=== PATIENT | female | born 1975 | race Caucasian/White ===

== ENCOUNTER → 2016-05-10 | Outpatient (CLI) | payer OTHER ==
--- NOTE | 2016-05-10 21:56 | WWHP ---
DATE OF SERVICE: 05/10/2016 CHIEF COMPLAINT: Patient is here for her routine gynecologic exam and mammogram. HPI: This is a 40-year-old, G20, P4-0-16-4 with an LMP of 05/2016. The patient is currently not using anything to prevent . She believes her may not be able to bear children because of trauma to his genital area in the past. She states her periods are slightly irregular about every 28 to 38 days. Her last pelvic exam was about 6 years ago. PAST MEDICAL HISTORY: Asthma, COPD, polycystic ovarian syndrome and premenstrual dysphoric disorder, bicornuate uterus and posttraumatic stress disorder, seizure disorder which is currently not requiring medications, anxiety and depression. She denies any other psychiatric problems and denies schizophrenia. MEDICATIONS: 1. Lorazepam 1 mg b.i.d. 2. Albuterol 2 puffs b.i.d. 3. Multivitamin daily. 4. Vitamins C and D daily. ALLERGIES TO LATEX. No known drug allergies. PAST SURGICAL HISTORY: 2 sections, oral surgery, 3 D&Cs, appendectomy. Past OB history: 2 vaginal deliveries followed by 2 sections. One was done for breech and second one was because of placenta previa and placenta accreta. She has had 16 spontaneous abortions in the past. 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 She was also told she had HPV. She denies history of genital herpes. She has had polycystic ovarian syndrome in the past. She was told she had some type of pelvic infection when she had an IUD in the past. SOCIAL HISTORY: She quit smoking in 2000 and she also quit drinking alcohol in 2000. She was a heavy drinker prior to that time. She tried marijuana twice in the past. Other than that has not used any drugs. She has been since 2010. 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 FAMILY HISTORY: Grandmother and grandfather had lung cancer. Paternal grandfather had leukemia. Father had colon cancer. Maternal uncle had colon cancer. Both parents have hypertension. Father has had coronary artery disease. Mother had uterine fibroids. She had grandparents who had diabetes. REVIEW OF SYSTEMS: She has lost about 29 pounds over the last year. RESPIRATORY: She is getting over a cold. Cardiac: She has had occasional palpitations. GI: She denies any GI problems. PHYSICAL EXAM: Blood pressure 102/71. Height 5 feet 10 inches, weight 191 pounds. Temperature 98.1, pulse 79. This a well-developed, well-nourished white female who is alert and oriented x3 in no acute distress. HEENT is within normal limits. NECK: Supple without mass or thyromegaly. CHEST AND LUNGS: Clear to auscultation. HEART: Regular rate and rhythm. Breasts are without mass or discharge. There is mild right axillary tenderness but there is no axillary adenopathy. BACK: Negative for CVA tenderness. ABDOMEN: Soft, nontender, without palpable masses. PELVIC EXAM: Normal external genitalia. Cervix and vagina reveal a small amount of old menstrual blood in the back of vagina. There is no unusual discharge. There is no cervical motion tenderness. The uterus is midposition, nongravid size and nontender. There are no palpable adnexal masses. There is mild right adnexal tenderness which she states she has had for many years, which causes tenderness when she is examined on that side. She states she had many ultrasounds for this and these typically show some ovarian cysts per the patient. Rectovaginal exam is negative for mass or tenderness. EXTREMITIES: Nontender. IMPRESSION: 1. A 40-year-old female with history of polycystic ovarian syndrome, and mild right adnexal tenderness without palpable masses. 2. She is currently not doing anything to prevent at this time. 3. History of bicornuate uterus and history of placenta previa and placenta accreta in the past by the patient's history. 4. Multiple medical problems. PLAN: 1. Pap smear was performed. 2. Self-breast examination was discussed. 3. Mammogram will be done today. 4. We had a long discussion about how she would be very high risk if she did get again. She states she had wanted one more . We have also discussed her advanced maternal age and her increased risk for Down syndrome. 5. We have discussed control options, including sterilization, hormonal methods, IUD and barrier methods. As she had pelvic infection with an IUD I do not feel that this would be a good choice for her especially if she has a bicornuate uterus. She states she will consider options. I have recommended that she at least use condoms if she is sexually active. 6. If she is not preventing I have recommended she take a multivitamin. We have also discussed risks of the Zika virus. I stressed importance of not traveling to countries higher risk for mosquitoes with the Zika virus as well as her avoid these areas as well. 7. She will return in one year. DALE
--- NOTE | 2016-05-12 09:51 | MM ---
Reason for exam: screening (asymptomatic). History: Taking hormonal contraceptives for 2 years beginning at age 30. Physical Findings: A clinical breast exam by your physician is recommended on an annual basis and results should be correlated with mammographic findings. MG 3D Screening Mammo W/Cad Bilateral CC and MLO view(s) were taken. The breast tissue is heterogeneously dense. This may lower the sensitivity of mammography. There is no discrete abnormality. No significant changes when compared with prior studies. ASSESSMENT: Negative, BI-RAD 1 RECOMMENDATION: Routine screening mammogram of both breasts in 1 year.
== END | disposition home or self-care (01) ==
LOC: WWCWWP 12:27
PROVIDERS: ATTEND Obstetrics & Gynecology
DX: Z12.31 Encounter for screening mammogram for malignant neoplasm of breast (principal)
CPT/HCPCS: 77063; G0202

== ENCOUNTER → 2016-05-10 | Outpatient (CLI) | payer OTHER | END | disposition home or self-care (01) | LOC: RADMAMWWP 13:45 | PROVIDERS: ATTEND Obstetrics & Gynecology | DX: Z53.9 Procedure and treatment not carried out, unspecified reason (principal) ==

== ENCOUNTER → 2016-06-28 | Outpatient (CLI) | payer OTHER ==
--- NOTE | 2016-06-28 09:24 | US ---
EXAMINATION TYPE: US transvaginal DATE OF EXAM: 06/28/2016 9:01 AM COMPARISON: 04/10/2013 CLINICAL HISTORY: R10.2 Pelvic Pain. Right pelvic pain, h/o cysts TECHNIQUE: TV Date of LMP: 05/28/2016 EXAM MEASUREMENTS: Uterus: 7.7 x 5.4 x 3.8 cm Endometrial Stripe: 0.7 cm Right Ovary: 2.2 x 1.7 x 1.4 cm Left Ovary: 3.9 x 1.7 x 2.9 cm 1. Uterus: Anteverted wnl 2. Endometrium: wnl 3. Right Ovary: wnl 4. Left Ovary: 2.1cm dominate follicle versus small cyst 5. Bilateral Adnexa: wnl 6. Posterior cul-de-sac: wnl Impression: 1. There is a 2.1 cm simple left ovarian cyst.
== END | disposition home or self-care (01) ==
LOC: RADUSWWP 08:24
PROVIDERS: ATTEND Obstetrics & Gynecology
DX: N83.202 Unspecified ovarian cyst, left side (principal)
CPT/HCPCS: 76830

== ENCOUNTER → 2016-09-07 | Outpatient (CLI) | payer OTHER ==
[2016-09-07 12:14] LABS: Appearance,Urine Clear (Clear); Bilirubin,Urine Negative (Negative); Glucose,Urine (UA) Negative (Negative); Ketones,Urine Negative (Negative); Leukocyte Esterase,Urine Trace (Negative); Mucus,Urine Rare /hpf; Nitrite,Urine Negative (Negative); Particle Count 1535; Protein,Urine Negative (Negative); RBC,Urine <1 /hpf (0-5); Specific Gravity,Urine 1.013 (1.001-1.035); Squamous Epithelial Cell,Urine <1 /hpf (0-4); UA Billing (MACRO vs. MICRO) MICRO; Urobilinogen,Urine <2.0 mg/dL (<2.0); WBC,Urine <1 /hpf (0-5)
--- NOTE | 2016-09-07 22:08 | WWPN ---
DATE OF ADMISSION: 09/07/2016 CHIEF COMPLAINT: Vaginal discharge x2 weeks. HPI: This is a 41-year-old [id number] for with a last normal menstrual period of 07/12/16. She has not been using anything for control, since she thought her was not able to bear children because of trauma to his genital area in the past. She states after her last normal menstrual period, she has had 2 very light bleeding episodes, one for two days on 07/25/2016, which was very light. She also had spotting for a couple of days on 08/08/2016. She states she is having some symptoms including breast tenderness. She is also complaining of right abdominal pain, which is greatest in the right lower quadrant. It seems to radiate from the right back area. She states she did have an ectopic in the past and she says that this could be a possibility. She has also been experiencing mucousy discharge. She states also resembles discharge of her pregnancies in the past. She has noticed a slight greenish-greenish tinge and a slight odor. The abdominal discomfort feels like someone is pushing her finger into her abdomen, and she describes it as a pressure-type discomfort. She did have an abnormal Pap smear 05/10/2016, which showed ASCUS and was positive high-risk HPV. We have had several attempts to refer her for colposcopy, but she was not able to make her appointments to see Dr. Vallejo and her office will no longer see the patient because of the no-show. The patient states she does have an appointment with a plant control operator in [place]. She believes the name of Dr. Maurice. She will call with the exact name and phone number. REVIEW OF SYSTEMS: She denies fever, but she has had occasional chills. She denies respiratory, cardiac, or GI problems. She states she has had normal bowel movements. PHYSICAL EXAM: Blood pressure 100/69. Height 5 feet 9 inches. Weight 197 pounds. Temperature 98.3, pulse 67. This is a well-developed, well-nourished white female who is alert and oriented x3 in no acute distress. BACK: Is negative for CVA tenderness. ABDOMEN: Soft with mild right lower and right upper quadrant tenderness without rebound tenderness. There are no palpable masses. The abdomen is nondistended. PELVIC EXAM: Normal external genitalia. Cervix and vagina reveal a small amount of slightly yellowish mucus without odor. The cervix appears multiparous, but no significant inflammation. There is no significant odor. There is no cervical motion tenderness. The uterus is midposition, nongravid size and nontender. There are no palpable adnexal masses or tenderness. Saline wet mount is negative for trichomonas or clue cells and TIFFANY wet mount is negative for hyphae. No significant white blood cells noted as well. IMPRESSION: 1. A 41-year-old female with slight vaginal discharge, without evidence of active vaginitis. 2. Right abdominal pain with mild tenderness. At this time, I doubt a gynecologic cause based on her nontender bimanual examination of the pelvis. 3. Abnormal recent menses with last normal menstrual period of 07/12/2016. 4. Differential diagnosis will include and if she is an ectopic should be considered. Urinary tract infection, ovarian cyst as well as nongynecologic causes for pain would also be considered. I also doubt PID based on her negative bimanual examination. PLAN: 1. GC and Chlamydia testing from the cervix has been obtained. 2. UA with C&S will be obtained. 3. The patient states urine test are not accurate in her situation and she is requesting blood test be done instead of a urine test so serum beta-hCG will be obtained. 4. If she is having increasing pain or problems, she can go into the emergency room for further evaluation. 5. If she is not she will follow up with Dr. Sharma regarding abdominal pain. 6. The patient will see a plant control operator in [place] for her abnormal Pap smear. A copy of her Pap smear and HPV testing were given to the patient. She was also instructed to call with the doctors name and phone number so we can send additional records. Total time spent with the patient 35 minutes.
== END | disposition home or self-care (01) ==
LOC: WWCWWP 10:27
PROVIDERS: ATTEND Obstetrics & Gynecology
DX: N91.1 Secondary amenorrhea (principal); R10.31 Right lower quadrant pain; N89.8 Other specified noninflammatory disorders of vagina
CPT/HCPCS: 36415; 81001; 84702; 87086; 87491; 87591

== ENCOUNTER → 2017-09-28 | Outpatient (CLI) | payer OTHER ==
--- NOTE | 2017-09-28 22:35 | US ---
EXAMINATION TYPE: US OB >= 14 wk fetus DATE OF EXAM: 09/28/2017 COMPARISON: None CLINICAL HISTORY: 42-year-old female O09.523 Advanced maternal age,3rd trimester; ; patient stat ed has had anatomy survey at physician's office TECHNIQUE: Transabdominal (TA) GESTATIONAL AGE / DATING Physician Established: (36 weeks/2 days) EDC: 10/24/2017 Dates by LMP: LMP unknown Dates by First Scan: No previous this is first scan Dates by Current Scan: (35 weeks/5 days +/- 2 weeks 3 days) EDC: 10/28/2017 Beta HCG (if available): NA SURVEY IUP: Single PLACENTA: Fundal PREVIA: No Previa STAN: 17.6 cm Normal CERVICAL LENGTH (transabdominal: norm > 3.0cm): 4.1 cm BIOMETRY PRESENTATION: Breech LIE: Transverse with head maternal Left BPD: 8.7 cm 34 weeks / 6 days HC: 31.9 cm 36 weeks / 0 days AC: 32.3 cm 36 weeks / 1 day FL: 7.0 cm 35 weeks / 5 days ESTIMATED WEIGHT IN GRAMS: 2797.0 grams ESTIMATED WEIGHT IN LBS/OZ: 6 lbs. 13 oz. WEIGHT PERCENTAGE BASED ON ESTABLISHED DATES: 41.6% HC/AC: 0.99 Normal FL/AC: 21.54 Normal HEART RATE: 144 bpm RHYTHM: Normal Rotating Equipment Specialist notes: Single, live IUP,35 weeks/5 days,EDC: 10/28/2017, HR 144bpm. IMPRESSION: Single live intrauterine with established gestational age of 36 weeks 2 days. Current ultra sound biometry is slightly smaller and concordant at 35 weeks 5 days (placing the child at the 42nd p ercentile for weight).
== END | disposition home or self-care (01) ==
LOC: RADUSWWP 15:38
PROVIDERS: ATTEND Obstetrics & Gynecology Gynecology
DX: O09.523 Supervision of elderly multigravida, third trimester (principal); O09.93 Supervision of high risk pregnancy, unspecified, third trimester; O09.43 Supervision of pregnancy with grand multiparity, third trimester; Z3A.36 36 weeks gestation of pregnancy
CPT/HCPCS: 76805

== ENCOUNTER → 2017-10-12 | Outpatient (CLI) | payer OTHER ==
--- NOTE | 2017-10-12 14:16 | US ---
EXAMINATION TYPE: US OB BPP wo non-stress DATE OF EXAM: 10/12/2017 COMPARISON: OB ultrasound September 28, 2017 CLINICAL HISTORY: O09.523 AMA,O09.93 HIGH RISK FOR INTRAPARTUM COMP. EXAM PERFORMED: Transabdominal (TA) BPP PARAMETERS: PRESENTATION: vertex LIE: Oblique?? HEART RATE: 126 bpm RHYTHM: Normal STAN: 16.5 DIAPHRAGM IMAGED: yes BPP SCORIN. Breathin (1 episode of breathing of 30 second duration in 30 minutes of scanning time) 2. Movement: 2 (at least 3 discrete body movements in 30 minutes) 3. Tone: 2 (1 episode of active flexion/extension of limb) 4. STAN: 2 (STNA index > 5cm) TOTAL SCORE: 8 / 8 Normal study
== END | disposition home or self-care (01) ==
LOC: RADUSWWP 13:19
PROVIDERS: ATTEND Obstetrics & Gynecology Gynecology
DX: O09.523 Supervision of elderly multigravida, third trimester (principal); O09.93 Supervision of high risk pregnancy, unspecified, third trimester; Z3A.00 Weeks of gestation of pregnancy not specified
CPT/HCPCS: 76819

== ENCOUNTER 2017-11-28 17:25 | Emergency (ER) | payer OTHER ==
[2017-11-28] MEDS ORDERED: SODIUM CHLORIDE 0.9% 1,000 ML IV ONE (17:53)
--- NOTE | 2017-11-28 17:57 | ED ---
General Adult HPI - General Source: patient, RN notes reviewed Mode of arrival: ambulatory Limitations: no limitations <Kieran Victoria - Last Filed: 11/28/17 20:48> <John Rodrigez - Last Filed: 11/28/17 21:47> - General Chief complaint: Headache Stated complaint: Headache/dizziness Time Seen by Provider: 11/28/17 17:30 - History of Present Illness Initial comments: This a 42-year-old female presents emergency Department by 4 weeks. Patient comes in today stating that since she delivered she has been having body aches and over the last 4 days she's had a temperature however today she has had no temperature. Patient states last few days she's been very lightheaded and almost passing out today she was sitting in a chair nursing her baby when her boyfriend came back in the room and he thought she was passed out but she woke up immediately upon him talking but she's not sure if she was unconscious or not. Patient states yesterday was last time she had a fever it was 100. Patient states she has a history of an aneurysm in the past. Patient also complains of a headache for 4 days as well. Patient denies any nausea vomiting or diarrhea. Patient denies any cough. Patient denies any palpitations. Patient denies shortness of breath or difficulty breathing. Patient denies any numbness or weakness. Patient also complains of dysuria no urinary frequency. (Kieran Victoria) - Related Data Home Medications Medication Instructions Recorded Confirmed Acetaminophen Tab [Tylenol Tab] 1,000 mg PO BID PRN 11/28/17 11/28/17 Albuterol Inhaler [Ventolin Hfa 2 puff INHALATION RT-Q6H PRN 11/28/17 11/28/17 Inhaler] Hydrocodone/Acetaminophen [[place] 1 tab PO DAILY PRN 11/28/17 11/28/17 7.5-325] Pedi Multivit No.25/Folic Acid 300 mcg PO DAILY 11/28/17 11/28/17 [[place] Multivit Chew Tab] Allergies Allergy/AdvReac Type Severity Reaction Status Date / Time acetaminophen [From Percocet] Allergy Anaphylaxis Verified 11/28/17 17:59 ciprofloxacin [From Cipro] Allergy Anaphylaxis Verified 11/28/17 17:59 coconut Allergy Anaphylaxis Verified 11/28/17 17:59 Fish Containing Products Allergy Anaphylaxis Verified 11/28/17 17:59 [Fish] fluticasone Allergy Anaphylaxis Verified 11/28/17 17:59 [From Flovent Diskus] Iodinated Contrast- Oral and Allergy Swelling Verified 11/28/17 17:59 IV Dye [Iodinated Contrast Media - IV Dye] iodine Allergy Swelling Verified 11/28/17 17:59 lamotrigine [From Lamictal] Allergy Anaphylaxis Verified 11/28/17 17:59 latex Allergy Rash/Hives Verified 11/28/17 17:59 naproxen Allergy Rash/Hives Verified 11/28/17 17:59 nitrofurantoin Allergy Rash/Hives Verified 11/28/17 17:59 [From Macrobid] oxcarbazepine Allergy Unknown Verified 11/28/17 17:59 [From Trileptal] oxycodone [From Percocet] Allergy Anaphylaxis Verified 11/28/17 17:59 Penicillins Allergy Anaphylaxis Verified 11/28/17 17:59 Quinolones Allergy Unknown Verified 11/28/17 17:59 shellfish derived [Shellfish] Allergy Swelling Verified 11/28/17 17:59 topiramate [From Topamax] Allergy Rash/Hives Verified 11/28/17 17:59 venom-honey bee Allergy Anaphylaxis Verified 11/28/17 17:59 [bee venom (honey bee)] venom-wasp [wasp venom] Allergy Anaphylaxis Verified 11/28/17 17:59 codeine AdvReac Vomiting Verified 11/28/17 17:59 diphenhydramine AdvReac Unknown Verified 11/28/17 17:59 [From Benadryl] divalproex sodium AdvReac Unknown Verified 11/28/17 17:59 [From Depakote] erythromycin base AdvReac Unknown Verified 11/28/17 17:59 medroxyprogesterone AdvReac Unknown Verified 11/28/17 17:59 [From Depo-Provera] paroxetine [From Paxil] AdvReac Unknown Verified 11/28/17 17:59 procaine [From Novocain] AdvReac Unknown Verified 11/28/17 17:59 Review of Systems ROS Other: All systems not noted in ROS Statement are negative. <Kieran Victoria - Last Filed: 11/28/17 20:48> ROS Other: All systems not noted in ROS Statement are negative. <John Rodrigez - Last Filed: 11/28/17 21:47> ROS Statement: Those systems with pertinent positive or pertinent negative responses have been documented in the HPI. Past Medical History Past Medical History: GERD/Reflux Additional Past Medical History / Comment(s): polycystic, ulcer, biliary colic History of Any Multi-Drug Resistant Organisms: None Reported Past Surgical History: Appendectomy, Section Additional Past Surgical History / Comment(s): d and c Past Psychological History: No Psychological Hx Reported Smoking Status: Former smoker Past Alcohol Use History: None Reported Past Drug Use History: None Reported <Kieran Victoria - Last Filed: 11/28/17 20:48> General Exam Limitations: no limitations <Kieran Victoria - Last Filed: 11/28/17 20:48> <John Rodrigez - Last Filed: 11/28/17 21:47> - General Exam Comments Initial Comments: GENERAL: Patient is well-developed and well-nourished. Patient is nontoxic and well- hydrated and is in no acute distress. Patient was breast-feeding her child when I entered the room and in no distress ENT: Neck is soft and supple. No significant lymphadenopathy is noted. Oropharynx is clear. Moist mucous membranes. Neck has full range of motion without eliciting any pain. EYES: The sclera were anicteric and conjunctiva were pink and moist. Extraocular movements were intact and pupils were equal round and reactive to light. Eyelids were unremarkable. PULMONARY: Unlabored respirations. Good breath sounds bilaterally. No audible rales rhonchi or wheezing was noted. CARDIOVASCULAR: There is a regular rate and rhythm without any murmurs gallops or rubs. ABDOMEN: Soft and nontender with normal bowel sounds. No palpable organomegaly was noted. There is no palpable pulsatile mass. SKIN: Skin is clear with no lesions or rashes and otherwise unremarkable. NEUROLOGIC: Patient is alert and oriented x3. Cranial nerves II through XII are grossly intact. Motor and sensory are also intact. Normal speech, volume and content. Symmetrical smile. MUSCULOSKELETAL: Normal extremities with adequate strength and full range of motion. No lower extremity swelling or edema. No calf tenderness. LYMPHATICS: No significant lymphadenopathy is noted PSYCHIATRIC: Normal psychiatric evaluation. (Kieran Victoria) Vital Signs 11/28/17 11/28/17 11/28/17 17:31 17:51 20:17 Temperature 98.3 F 98.8 F Pulse Rate 96 83 Pulse Rate [ 89 Right Sitting Radial] Pulse Rate [ 100 Right Standing Radial] Pulse Rate [ 91 Right Supine Radial] Respiratory 16 18 Rate Blood Pressure 97/65 111/63 Blood Pressure 120/72 [Right Arm Sitting] Blood Pressure 109/67 [Right Arm Standing] Blood Pressure 102/57 [Right Arm Supine] O2 Sat by Pulse 98 98 Oximetry Medical Decision Making - Lab Data Result diagrams: 11/28/17 18:15 11/28/17 18:15 <Keiran Victoria - Last Filed: 11/28/17 20:48> - Lab Data Result diagrams: 11/28/17 18:15 11/28/17 18:15 <John Rodrigez - Last Filed: 11/28/17 21:47> - Medical Decision Making Dr. Rodrigez will take over the care of this patient at 9 PM (Kieran Victoria) Patient is signed out awaiting CT head. This is reviewed and is unremarkable. Patient reassessed after IV hydration and 2 mg morphine. She is feeling much better. Vital signs are stable. She has a normal neurologic exam. Laboratory studies reviewed and are unremarkable. Patient is eager for discharge. She does have good outpatient follow-up including an appointment within the next several days. She will return with worsening or changing symptoms. (John Rodrigez) - Lab Data Lab Results 11/28/17 11/28/17 11/28/17 Range/Units 18:15 18:15 18:45 WBC 8.1 (3.8-10.6) k/uL RBC 4.43 (3.80-5.40) m/uL Hgb 12.5 (11.4-16.0) gm/dL Hct 38.8 (34.0-46.0) % MCV 87.5 (80.0-100.0) fL MCH 28.1 (25.0-35.0) pg MCHC 32.2 (31.0-37.0) g/dL RDW 13.2 (11.5-15.5) % Plt Count 155 (150-450) k/uL Neutrophils % 68 % Lymphocytes % 22 % Monocytes % 5 % Eosinophils % 2 % Basophils % 0 % Neutrophils # 5.5 (1.3-7.7) k/uL Lymphocytes # 1.8 (1.0-4.8) k/uL Monocytes # 0.4 (0-1.0) k/uL Eosinophils # 0.2 (0-0.7) k/uL Basophils # 0.0 (0-0.2) k/uL Sodium 142 (137-145) mmol/L Potassium 4.2 (3.5-5.1) mmol/L Chloride 110 H (98-107) mmol/L Carbon Dioxide 22 (22-30) mmol/L Anion Gap 10 mmol/L BUN 13 (7-17) mg/dL Creatinine 0.80 (0.52-1.04) mg/dL Est GFR (CKD-EPI)AfAm >90 (>60 ml/min/1.73 sqM) Est GFR (CKD-EPI)NonAf >90 (>60 ml/min/1.73 sqM) Glucose 92 (74-99) mg/dL Calcium 9.1 (8.4-10.2) mg/dL Magnesium 1.9 (1.6-2.3) mg/dL Total Bilirubin 0.8 (0.2-1.3) mg/dL AST 25 (14-36) U/L ALT 35 (9-52) U/L Alkaline Phosphatase 83 (38-126) U/L Total Protein 7.7 (6.3-8.2) g/dL Albumin 4.2 (3.5-5.0) g/dL Urine Color Yellow Urine Appearance Clear (Clear) Urine pH 5.5 (5.0-8.0) Ur Specific [place] 1.023 (1.001-1.035) Urine Protein Negative (Negative) Urine Glucose (UA) Negative (Negative) Urine Ketones Negative (Negative) Urine Blood Negative (Negative) Urine Nitrite Negative (Negative) Urine Bilirubin Negative (Negative) Urine Urobilinogen <2.0 (<2.0) mg/dL Ur Leukocyte Esterase Small H (Negative) Urine RBC 2 (0-5) /hpf Urine WBC 4 (0-5) /hpf Ur Squamous Epith Cells <1 (0-4) /hpf Urine Mucus Rare H (None) /hpf Disposition <Kieran Victoria - Last Filed: 11/28/17 20:48> Is patient prescribed a controlled substance at d/c from ED?: No Time of Disposition: 21:47 <John Rodrigez - Last Filed: 11/28/17 21:47> Clinical Impression: Headache Disposition: HOME SELF-CARE Condition: Good Instructions: Acute Headache (ED) Referrals: Mariaelena Witt MD [Primary Care Provider] - 1-2 days
[2017-11-28 18:42] LABS: ALT 35 U/L (9-52); AST 25 U/L (14-36); Albumin 4.2 g/dL (3.5-5.0); Alkaline Phosphatase 83 U/L (38-126); Anion Gap 10 mmol/L; Blood Urea Nitrogen 13 mg/dL (7-17); Calcium 9.1 mg/dL (8.4-10.2); Carbon Dioxide 22 mmol/L (22-30); Chloride 110 mmol/L (98-107); Glucose 92 mg/dL (74-99); Magnesium 1.9 mg/dL (1.6-2.3); Potassium 4.2 mmol/L (3.5-5.1); Sodium 142 mmol/L (137-145); Total Bilirubin 0.8 mg/dL (0.2-1.3); Total Protein 7.7 g/dL (6.3-8.2)
[2017-11-28 18:45] LABS: Basophils % (A) 0 %; Eosinophils # (A) 0.2 k/uL (0-0.7); Eosinophils % (A) 2 %; HCT 38.8 % (34.0-46.0); HGB 12.5 gm/dL (11.4-16.0); Lymphocytes # (A) 1.8 k/uL (1.0-4.8); Lymphocytes % (A) 22 %; MCH 28.1 pg (25.0-35.0); MCHC 32.2 g/dL (31.0-37.0); MCV 87.5 fL (80.0-100.0); Mean Platelet Volume 7.5; Monocytes # (A) 0.4 k/uL (0-1.0); Monocytes % (A) 5 %; Neutrophils # (A) 5.5 k/uL (1.3-7.7); Neutrophils % (A) 68 %; Platelet Count 155 k/uL (150-450); RBC 4.43 m/uL (3.80-5.40); RDW 13.2 % (11.5-15.5); WBC 8.1 k/uL (3.8-10.6)
[2017-11-28 18:56] LABS: Appearance,Urine Clear (Clear); Bilirubin,Urine Negative (Negative); Blood,Urine Negative (Negative); Color,Urine Yellow; Glucose,Urine (UA) Negative (Negative); Ketones,Urine Negative (Negative); Leukocyte Esterase,Urine Small (Negative); Mucus,Urine Rare /hpf; Nitrite,Urine Negative (Negative); PH, Urine 5.5 (5.0-8.0); Protein,Urine Negative (Negative); RBC,Urine 2 /hpf (0-5); Specific Gravity,Urine 1.023 (1.001-1.035); Squamous Epithelial Cell,Urine <1 /hpf (0-4); Urobilinogen,Urine <2.0 mg/dL (<2.0); WBC,Urine 4 /hpf (0-5)
--- NOTE | 2017-11-28 19:27 | XR ---
EXAMINATION TYPE: XR chest 2V DATE OF EXAM: 11/28/2017 COMPARISON: 01/16/2012 HISTORY: 42-year-old female with difficulty breathing TECHNIQUE: PA and lateral views FINDINGS: The cardiomediastinal silhouette, aorta, and pulmonary vasculature are within normal limits. Hazy low er lung densities related to overlying soft tissue. Otherwise, lungs and pleural spaces are clear. IMPRESSION: No acute cardiopulmonary process.
[2017-11-28 20:18] VITALS: RESP 18; TEMP 98.8
[2017-11-28] MEDS ORDERED: MORPHINE SULFATE 2 MG/ML SYRINGE IVP STA (21:20)
--- NOTE | 2017-11-28 21:31 | CT ---
EXAMINATION TYPE: CT brain wo con DATE OF EXAM: 11/28/2017 COMPARISON: 01/16/2012 HISTORY: 42-year-old female Headache x 5 days. Nausea, syncope. TECHNIQUE: Examination was done in axial plane without intravenous contrast. Coronal and sagittal r econstructions performed. CT DLP: 1079 mGycm Automated exposure control for dose reduction was used. FINDINGS: There is no evidence of acute intracranial hemorrhage, acute ischemic changes, mass, mass-effect, or extra-axial fluid collection. There is no effacement of cerebral sulci or basal subarachnoid cister ns. There is no hydrocephalus. There is no midline shift. Membreno-white matter distinction is preserv ed. Trace mucosal thickening ethmoid air cells. Mastoid air cells are somewhat hypoplastic. Orbits and gl obes appear intact. IMPRESSION: No acute intracranial abnormality seen.
[2017-11-28 22:02] VITALS: BP 126/62; PULSE 84
== END 2017-11-28 22:02 | disposition home or self-care (01) ==
LOC: EC 17:25
DX: R51 Headache (principal); R42 Dizziness and giddiness; Z88.0 Allergy status to penicillin; Z88.1 Allergy status to other antibiotic agents; Z88.4 Allergy status to anesthetic agent; Z88.5 Allergy status to narcotic agent; Z88.6 Allergy status to analgesic agent; Z88.8 Allergy status to other drugs, medicaments and biological substances; Z91.013 Allergy to seafood; Z91.018 Allergy to other foods; Z91.030 Bee allergy status; Z91.040 Latex allergy status; Z91.041 Radiographic dye allergy status
CPT/HCPCS: 36415; 80053; 83735; 85025; 81001; 71046; 70450; 99284; 96374; 96361; J2270

== ENCOUNTER → 2017-12-22 | Outpatient (CLI) | payer OTHER ==
--- NOTE | 2017-12-22 16:00 | US ---
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 Difficulty swallowing, thyromeg janet GLAND SIZE: Right Lobe: 4.6 x 1.9 x 1.7 cm Overall Parenchyma: homogenous Left Lobe: 4.4 x 1.7 x 1.7 cm Overall Parenchyma: homogeneous Isthmus Thickness: 0.4 cm NODULES RIGHT: # of nodules measured on right: 0 LEFT: # of nodules measured on left: 0 ISTHMUS: # of nodules measured in the isthmus: 0 Bilateral neck scanned, no evidence of lymphadenopathy. Homogeneous normal-sized thyroid without suspicious solid or cystic nodule. IMPRESSION: Unremarkable study. Findings correlate with [address]
== END | disposition home or self-care (01) ==
LOC: RADUSWWP 14:28
PROVIDERS: ATTEND Family Medicine
DX: E01.0 Iodine-deficiency related diffuse (endemic) goiter (principal)
CPT/HCPCS: 76536

== ENCOUNTER 2020-06-16 18:25 | Observation (INO) | payer OTHER ==
[2020-06-16] MEDS ORDERED: ONDANSETRON 4 MG/2 ML VIAL IVP STA (20:07)
[2020-06-16] MEDS ORDERED: HYDROmorphone 1 MG/ML 1 ML SYRINGE IVP STA ×2 (20:07→22:13)
[2020-06-16] MEDS ORDERED: SODIUM CHLORIDE 0.9% 1,000 ML IV STA (20:07)
[2020-06-16] MEDS ORDERED: methylPREDNISolone SOD SUCCI 125 MG/2 ML VIAL IV STA (20:34)
[2020-06-16] MEDS ORDERED: FAMOTIDINE 20 MG/2 ML VIAL IV STA (20:34)
--- NOTE | 2020-06-16 20:43 | ED ---
General Adult HPI - General Source: patient Mode of arrival: wheelchair Limitations: no limitations <Caity Cox - Last Filed: 06/16/20 22:27> <Kieran Bailey - Last Filed: 06/17/20 01:55> - General Chief complaint: Abdominal Pain Stated complaint: Back pain Time Seen by Provider: 06/16/20 19:31 - History of Present Illness Initial comments: 44-year-old female patient presents to the emergency department today for evaluation of low back pain with radiation down the left leg. Patient states her left leg is numb and tingly. States that she has been having trouble having a bowel movement, but constantly feels the urge to go. States she feels like there is a ball of stool in her rectum. 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 She states that she has been quite constipated since the beginning of May. States that she was initially using epsom salt laxatives, then switched to a stool softener which has not helped. She states that she has been nauseated and weak. She feels a bulging in her lower abdomen that she is concerned is a hernia. She reports shaking chills. Denies any known fever. States she is using Tylenol, but it is not helping. States that she had a fall down the stairs at the end of February which started her pain issues. States that she had a dislocation to her left hip and injured her "sits bones". Patient denies any recent rash, cough, shortness of breath, chest pain, dizzine ss, weakness, headache, visual changes, or any other complaints. (Caity oCx) - Related Data Home Medications Medication Instructions Recorded Confirmed Acetaminophen Tab [Tylenol Tab] 1,000 mg PO Q6H PRN 11/28/17 06/16/20 Ascorbic Acid [Vitamin C] 1,000 mg PO DAILY 06/16/20 06/16/20 Cholecalciferol [Vitamin D3 (25 100 mcg PO DAILY 06/16/20 06/16/20 Mcg = 1000 Iu)] Uvw-Ohmy-Gyoqb Acid 1 cap PO DAILY 06/16/20 06/16/20 [-U Capsule (formulary)] Allergies Allergy/AdvReac Type Severity Reaction Status Date / Time acetaminophen [From Percocet] Allergy Anaphylaxis Verified 06/16/20 23:01 ciprofloxacin [From Cipro] Allergy Anaphylaxis Verified 06/16/20 23:01 coconut Allergy Anaphylaxis Verified 06/16/20 23:01 Fish Containing Products Allergy Anaphylaxis Verified 06/16/20 23:01 [Fish] fluticasone Allergy Anaphylaxis Verified 06/16/20 23:01 [From Flovent Diskus] Iodinated Contrast Media Allergy Swelling Verified 06/16/20 23:01 [Iodinated Contrast Media - IV Dye] iodine Allergy Swelling Verified 06/16/20 23:01 lamotrigine [From Lamictal] Allergy Anaphylaxis Verified 06/16/20 23:01 latex Allergy Rash/Hives Verified 06/16/20 23:01 naproxen Allergy Rash/Hives Verified 06/16/20 23:01 nitrofurantoin Allergy Rash/Hives Verified 06/16/20 23:01 [From Macrobid] oxcarbazepine Allergy Unknown Verified 06/16/20 23:01 [From Trileptal] oxycodone [From Percocet] Allergy Anaphylaxis Verified 06/16/20 23:01 Penicillins Allergy Anaphylaxis Verified 06/16/20 23:01 Quinolones Allergy Unknown Verified 06/16/20 23:01 shellfish derived [Shellfish] Allergy Swelling Verified 06/16/20 23:01 topiramate [From Topamax] Allergy Rash/Hives Verified 06/16/20 23:01 venom-honey bee Allergy Anaphylaxis Verified 06/16/20 23:01 [bee venom (honey bee)] venom-wasp [wasp venom] Allergy Anaphylaxis Verified 06/16/20 23:01 codeine AdvReac Vomiting Verified 06/16/20 23:01 diphenhydramine AdvReac Unknown Verified 06/16/20 23:01 [From Benadryl] divalproex sodium AdvReac Unknown Verified 06/16/20 23:01 [From Depakote] erythromycin base AdvReac Unknown Verified 06/16/20 23:01 medroxyprogesterone AdvReac Unknown Verified 06/16/20 23:01 [From Depo-Provera] paroxetine [From Paxil] AdvReac Unknown Verified 06/16/20 23:01 procaine [From Novocain] AdvReac Unknown Verified 06/16/20 23:01 Review of Systems ROS Other: All systems not noted in ROS Statement are negative. <Caity Cox - Last Filed: 06/16/20 22:27> ROS Other: All systems not noted in ROS Statement are negative. <Kieran Bailey - Last Filed: 06/17/20 01:55> ROS Statement: Those systems with pertinent positive or pertinent negative responses have been documented in the HPI. Past Medical History Past Medical History: GERD/Reflux Additional Past Medical History / Comment(s): polycystic, ulcer, biliary colic,chronic back pain History of Any Multi-Drug Resistant Organisms: None Reported Past Surgical History: Appendectomy, Section Additional Past Surgical History / Comment(s): d and c Past Psychological History: No Psychological Hx Reported Smoking Status: Never smoker Past Alcohol Use History: None Reported Past Drug Use History: None Reported <Caity Cox - Last Filed: 06/16/20 22:27> General Exam Limitations: no limitations General appearance: alert, in no apparent distress, other (This is a well- developed, well-nourished adult female patient in no acute distress. Vital signs upon presentation are temperature 98.5F, pulse 102, respirations 24, blood pressure 124/82, pulse ox 97% on room air.) Eye exam: Present: normal appearance, PERRL, EOMI. Absent: scleral icterus, conjunctival injection, periorbital swelling ENT exam: Present: normal exam, normal oropharynx, mucous membranes moist Respiratory exam: Present: normal lung sounds bilaterally. Absent: respiratory distress, wheezes, rales, rhonchi, stridor Cardiovascular Exam: Present: regular rate, normal rhythm, normal heart sounds. Absent: systolic murmur, diastolic murmur, rubs, gallop, clicks GI/Abdominal exam: Present: soft, normal bowel sounds. Absent: distended, tenderness, guarding, rebound, rigid Extremities exam: Present: normal inspection, full ROM, normal capillary refill, other (Skin to the lower extremities is pink, warm, dry. Cap refill less than 3 seconds. Pedal and posttibial pulses are 2+.). Absent: tenderness, pedal edema, joint swelling, calf tenderness Back exam: Present: normal inspection, vertebral tenderness (Lumbosacral) Neurological exam: Present: alert, oriented X3, CN II-XII intact Psychiatric exam: Present: normal affect, normal mood Skin exam: Present: warm, dry, intact, normal color. Absent: rash <Caity Cox - Last Filed: 06/16/20 22:27> Course <Kieran Bailey - Last Filed: 06/17/20 01:55> Vital Signs 06/16/20 06/16/20 06/16/20 19:25 20:47 22:14 Temperature 98.5 F Pulse Rate 102 H 86 82 Respiratory 24 18 18 Rate Blood Pressure 124/82 133/82 119/65 O2 Sat by Pulse 97 97 98 Oximetry 06/16/20 23:57 Temperature 98.0 F Pulse Rate 76 Respiratory 18 Rate Blood Pressure 122/73 O2 Sat by Pulse 100 Oximetry - Reevaluation(s) Reevaluation #1: 06/17/20 01:53 Medical records reviewed (Kieran Bailey) Reevaluation #2: 06/17/20 01:53 Spoke patient length here in the emergency department regarding findings and symptoms, patient states that she needs to find an answer for the symptoms that she is having (Kieran Bailey) Reevaluation #3: 06/17/20 01:53 Patient does have pain control is able to eat resting comfortably (Kieran Bailey) Medical Decision Making - Lab Data Result diagrams: 06/16/20 20:30 06/16/20 20:30 - Radiology Data Radiology results: report reviewed, image reviewed <Caity Cox - Last Filed: 06/16/20 22:27> - Lab Data Result diagrams: 06/16/20 20:30 06/16/20 20:30 - Radiology Data Radiology results: report reviewed (Ultrasound uterus pelvis show some heterogeneity but does not redemonstrate mass), image reviewed <Kieran Bailey - Last Filed: 06/17/20 01:55> - Medical Decision Making 44-year-old female patient presenting to the emergency department today with reports of constipation and low back pain. Pain is radiating down the left leg. She also reports tenderness and discomfort to the low abdomen. States she feels a "ball" in her rectum. Vital unremarkable no fever. Labs reviewed and are unr emarkable, normal white blood cell count. Urinalysis that shows 6 white blood cells small mild leukocyte esterase. Lumbar spine CT is negative. CT abdomen and pelvis is obtained and does show a left-sided hydronephrosis and hydroureter, and fat stranding and inflammatory changes in the pelvis with a possible tumor in the posterior uterine fundus. I did discuss the case with on- call [employer] Dr. Riddle who believes PID is unlikely given patient's symptoms, labs, and afebrile status. She does recommend pelvic ultrasound to better evaluate the uterine changes. Pelvic ultrasound is ordered. Care is handed over to my attending Dr. Jorgensen To manage until disposition. (Caity Cox) 44 female with complicated medical history, patient does speak at length regarding her medical history both now in the past. Patient states that she cannot go home without knowing exact cause of her symptoms. (Kieran Bailey) - Lab Data Lab Results 06/16/20 06/16/20 06/16/20 Range/Units 20:30 20:30 20:30 WBC 8.1 (3.8-10.6) k/uL RBC 5.32 (3.80-5.40) m/uL Hgb 13.8 (11.4-16.0) gm/dL Hct 42.9 (34.0-46.0) % MCV 80.6 (80.0-100.0) fL MCH 25.9 (25.0-35.0) pg MCHC 32.2 (31.0-37.0) g/dL RDW 13.7 (11.5-15.5) % Plt Count 192 (150-450) k/uL MPV 7.9 Neutrophils % 78 % Lymphocytes % 14 % Monocytes % 5 % Eosinophils % 1 % Basophils % 1 % Neutrophils # 6.4 (1.3-7.7) k/uL Lymphocytes # 1.1 (1.0-4.8) k/uL Monocytes # 0.4 (0-1.0) k/uL Eosinophils # 0.1 (0-0.7) k/uL Basophils # 0.0 (0-0.2) k/uL Sodium (137-145) mmol/L Potassium (3.5-5.1) mmol/L Chloride (98-107) mmol/L Carbon Dioxide (22-30) mmol/L Anion Gap mmol/L BUN (7-17) mg/dL Creatinine (0.52-1.04) mg/dL Est GFR (CKD-EPI)AfAm (>60 ml/min/1.73 sqM) Est GFR (CKD-EPI)NonAf (>60 ml/min/1.73 sqM) Glucose (74-99) mg/dL Calcium (8.4-10.2) mg/dL Total Bilirubin (0.2-1.3) mg/dL AST (14-36) U/L ALT (4-34) U/L Alkaline Phosphatase (38-126) U/L Total Protein (6.3-8.2) g/dL Albumin (3.5-5.0) g/dL Lipase (23-300) U/L Urine Color Yellow Urine Appearance Cloudy H (Clear) Urine pH 5.5 (5.0-8.0) Ur Specific [place] 1.013 (1.001-1.035) Urine Protein Negative (Negative) Urine Glucose (UA) Negative (Negative) Urine Ketones Negative (Negative) Urine Blood Trace H (Negative) Urine Nitrite Negative (Negative) Urine Bilirubin Negative (Negative) Urine Urobilinogen <2.0 (<2.0) mg/dL Ur Leukocyte Esterase Small H (Negative) Urine RBC 4 (0-5) /hpf Urine WBC 6 H (0-5) /hpf Ur Squamous Epith Cells 5 H (0-4) /hpf Urine Mucus Rare H (None) /hpf Urine HCG, Qual Not Detected (Not Detectd) 06/16/20 Range/Units 20:30 WBC (3.8-10.6) k/uL RBC (3.80-5.40) m/uL Hgb (11.4-16.0) gm/dL Hct (34.0-46.0) % MCV (80.0-100.0) fL MCH (25.0-35.0) pg MCHC (31.0-37.0) g/dL RDW (11.5-15.5) % Plt Count (150-450) k/uL MPV Neutrophils % % Lymphocytes % % Monocytes % % Eosinophils % % Basophils % % Neutrophils # (1.3-7.7) k/uL Lymphocytes # (1.0-4.8) k/uL Monocytes # (0-1.0) k/uL Eosinophils # (0-0.7) k/uL Basophils # (0-0.2) k/uL Sodium 139 (137-145) mmol/L Potassium 4.4 (3.5-5.1) mmol/L Chloride 104 (98-107) mmol/L Carbon Dioxide 27 (22-30) mmol/L Anion Gap 8 mmol/L BUN 11 (7-17) mg/dL Creatinine 0.89 (0.52-1.04) mg/dL Est GFR (CKD-EPI)AfAm >90 (>60 ml/min/1.73 sqM) Est GFR (CKD-EPI)NonAf 80 (>60 ml/min/1.73 sqM) Glucose 95 (74-99) mg/dL Calcium 9.8 (8.4-10.2) mg/dL Total Bilirubin 0.4 (0.2-1.3) mg/dL AST 24 (14-36) U/L ALT 13 (4-34) U/L Alkaline Phosphatase 81 (38-126) U/L Total Protein 7.9 (6.3-8.2) g/dL Albumin 4.2 (3.5-5.0) g/dL Lipase 47 (23-300) U/L Urine Color Urine Appearance (Clear) Urine pH (5.0-8.0) Ur Specific [place] (1.001-1.035) Urine Protein (Negative) Urine Glucose (UA) (Negative) Urine Ketones (Negative) Urine Blood (Negative) Urine Nitrite (Negative) Urine Bilirubin (Negative) Urine Urobilinogen (<2.0) mg/dL Ur Leukocyte Esterase (Negative) Urine RBC (0-5) /hpf Urine WBC (0-5) /hpf Ur Squamous Epith Cells (0-4) /hpf Urine Mucus (None) /hpf Urine HCG, Qual (Not Detectd) - Radiology Data CT abdomen and pelvis with contrast was obtained. Report was reviewed in its entirety. Impression by Dr. Brunner shows left-sided hydronephrosis and hydroureter. Upchucking calculus seen. Inflammatory changes in the pelvis with fluid and fat stranding. Heterogenous enlargement of the posterior uterine fundus. Appendix not seen. Consider possible is a PID with secondary involvement of the left ureter producing instruction. Uterine tumor as possible. Follow-up recommended. CT lumbar spine with contrast was obtained. Report was reviewed in its entirety. Impression by Dr. Brunner shows negative computed tomography scan of the lumbar spine, left-sided hydronephrosis and hydroureter. (Caity Cox) Disposition <Caity Cox - Last Filed: 06/16/20 22:27> Is patient prescribed a controlled substance at d/c from ED?: No <Kieran Bailey - Last Filed: 06/17/20 01:55> Clinical Impression: Pelvic pain, Uterine mass, Lower extremity weakness Disposition: ADMITTED IP TO THIS HOSP Condition: Good Referrals: Mariaelena Witt MD [Primary Care Provider] - 1-2 days
[2020-06-16 20:48] LABS: Appearance,Urine Cloudy (Clear); Bilirubin,Urine Negative (Negative); Blood,Urine Trace (Negative); Color,Urine Yellow; Glucose,Urine (UA) Negative (Negative); Ketones,Urine Negative (Negative); Leukocyte Esterase,Urine Small (Negative); Mucus,Urine Rare /hpf; Nitrite,Urine Negative (Negative); PH, Urine 5.5 (5.0-8.0); Protein,Urine Negative (Negative); RBC,Urine 4 /hpf (0-5); Specific Gravity,Urine 1.013 (1.001-1.035); Squamous Epithelial Cell,Urine 5 /hpf (0-4); Urobilinogen,Urine <2.0 mg/dL (<2.0); WBC,Urine 6 /hpf (0-5)
[2020-06-16 20:53] LABS: ALT 13 U/L (4-34); AST 24 U/L (14-36); African American GFR (CKD) >90 (>60 ml/min/1.73 sqM); Albumin 4.2 g/dL (3.5-5.0); Alkaline Phosphatase 81 U/L (38-126); Anion Gap 8 mmol/L; Blood Urea Nitrogen 11 mg/dL (7-17); Calcium 9.8 mg/dL (8.4-10.2); Carbon Dioxide 27 mmol/L (22-30); Chloride 104 mmol/L (98-107); Glucose 95 mg/dL (74-99); Lipase 47 U/L (23-300); Non-African American GFR(CKD) 80 (>60 ml/min/1.73 sqM); Potassium 4.4 mmol/L (3.5-5.1); Sodium 139 mmol/L (137-145); Total Bilirubin 0.4 mg/dL (0.2-1.3); Total Protein 7.9 g/dL (6.3-8.2)
[2020-06-16 21:21] LABS: Basophils % (A) 1 %; Eosinophils # (A) 0.1 k/uL (0-0.7); Eosinophils % (A) 1 %; HCT 42.9 % (34.0-46.0); HGB 13.8 gm/dL (11.4-16.0); Lymphocytes # (A) 1.1 k/uL (1.0-4.8); Lymphocytes % (A) 14 %; MCH 25.9 pg (25.0-35.0); MCHC 32.2 g/dL (31.0-37.0); MCV 80.6 fL (80.0-100.0); Mean Platelet Volume 7.9; Monocytes # (A) 0.4 k/uL (0-1.0); Monocytes % (A) 5 %; Neutrophils # (A) 6.4 k/uL (1.3-7.7); Neutrophils % (A) 78 %; Platelet Count 192 k/uL (150-450); RBC 5.32 m/uL (3.80-5.40); RDW 13.7 % (11.5-15.5); WBC 8.1 k/uL (3.8-10.6)
--- NOTE | 2020-06-16 21:42 | CT ---
EXAMINATION TYPE: CT abdomen pelvis w con DATE OF EXAM: 06/16/2020 COMPARISON: 01/27/2012 lower abdominal pain HISTORY: abdominal/flank pain CT DLP: combined DLP 1290.4 mGycm Automated exposure control for dose reduction was used. CONTRAST: Performed with IV Contrast, patient injected with 100 mL of Isovue 300. Images obtained from the diaphragm to the floor the pelvis with IV contrast. The lung bases are clear. There is no pleural effusion. Heart size is normal. There is no pericardial effusion. Liver spleen pancreas gallbladder appear intact. The bile ducts are not dilated. Stomach is intact. There is no adrenal mass. Kidneys have normal size. There is left-sided hydronephrosis and delayed le ft side pyelogram. There is left-sided hydroureter. Right kidneys show satisfactory excretion on the delayed images. Right ureter is not dilated. There is no retroperitoneal adenopathy. I see no definit e left ureteral calculus. There is heterogeneous enlargement of the uterine fundus with hypodense areas in the posterior wall o f the uterus. There is some free fluid in the cul-de-sac. There is fat stranding in the cul-de-sac. T he bladder distends smoothly. Appendix not seen. There appears to be surgical clips from appendectomy. There is no mesenteric edema . There is no evidence of free air. There is no sign of a bowel obstruction. The lumbar vertebra have normal alignment. There is no compression fracture. Posterior elements are intact. The bony pelvis i s intact. IMPRESSION: Left-sided hydronephrosis and hydroureter. No obstructing calculus seen. Inflammatory changes in the pelvis with fluid and fat stranding. Heterogeneous enlargement of the posterior uterine fundus. Appen sandi not seen. Consider possibilities of PID with secondary involvement of the left ureter producing obstruction.. U terine tumor is possible. Follow-up recommended.
--- NOTE | 2020-06-16 21:44 | CT ---
EXAMINATION TYPE: CT lumbar spine w con DATE OF EXAM: 06/16/2020 COMPARISON: None HISTORY: back pain following fall CT DLP: combined DLP 1290.4 mGycm Automated exposure control for dose reduction was used. CONTRAST: Performed with IV Contrast, patient injected with 100 mL of Isovue 300. Images obtained from the level of T11-S2 vertebra without contrast. Vertebra have normal alignment. Disc spaces are fairly normal. Posterior elements are intact. The fac et joints appear intact. There is no lumbar paraspinal mass. I see no compression fracture. Sacroilia c joints are intact. I see no bony destructive process. There is no evidence of spinal stenosis. Ther e is left-sided hydronephrosis and hydroureter. IMPRESSION: Negative CT scan of the lumbar spine. Left-sided hydronephrosis and hydroureter.
--- NOTE | 2020-06-17 00:19 | US ---
EXAMINATION TYPE: US transvaginal DATE OF EXAM: 06/16/2020 COMPARISON: CT, US CLINICAL HISTORY: Abn CT, uterine mass. Abn CT, Uterine mass. Patient gave a somewhat unclear history . Hx 5 deliveries, many pregnancies and miscarriages. Hx 2 , D/C x 2. TECHNIQUE: Transvaginal (TV). Date of LMP: 05/26/2020 EXAM MEASUREMENTS: Uterus: 8.3 x 6.5 x 5.8 cm Endometrial Stripe: 0.57 cm Right Ovary: Not seen Left Ovary: Not seen 1. Uterus: Anteverted Appears very heterogeneous. Difficult to distinguish any possible masses. 2. Endometrium: Anechoic-hypoechoic fluid appearing area seen within the endometrium measurin.5 x 2.2 x 1.2 cm. 4. Bilateral Adnexa: No abnormalities seen at this time. 5. Posterior cul-de-sac: Fluid seen measuring 2.4 x 1.6 x 0.8 cm. IMPRESSION: There is small intrauterine fluid collection measuring 2.5 x 1.2 cm. There is minimal free fluid in t he cul-de-sac. Uterus is heterogeneous. There are no adnexal masses. Ovaries are not seen. The hypodense area involving the posterior wall of the uterus on the CT scan today is not characteriz ed by this ultrasound exam. MR scan would BE helpful for further evaluation if clinically indicated.
[2020-06-17] MEDS: HYDROmorphone 1 MG/ML 1 ML SYRINGE IVP PRN ×2 (05:05→09:59)
--- NOTE | 2020-06-17 10:13 | US ---
EXAMINATION TYPE: US renals and bladder DATE OF EXAM: 06/17/2020 COMPARISON: CT abdomen and pelvis 06/16/2020 CLINICAL HISTORY: mass. Mass seen on ct scan EXAM MEASUREMENTS: Right Kidney: 9.6 x 4.7 x 5.0 cm Left Kidney: 10.8 x 5.4 x 4.8 cm Right Kidney: No hydronephrosis or masses seen Left Kidney: Mild to moderate hydronephrosis seen. Bladder: Not fully distended. Bilateral Jets seen: No No nephrolithiasis is seen. No masses are identified. The urinary bladder is anechoic. IMPRESSION: 1. Mild to moderate left hydronephrosis. 2. No discrete renal mass identified
--- NOTE | 2020-06-17 12:36 | XR ---
EXAMINATION TYPE: XR Hip Complete LT DATE OF EXAM: 06/17/2020 COMPARISON: None HISTORY: Pain TECHNIQUE: 2 view left hip FINDINGS: No acute fracture or dislocation is evident. Joint spaces preserved. IMPRESSION: 1. Normal 2 view left hip
[2020-06-17] MEDS: KETOROLAC 15 MG/ML 1 ML VIAL IVP PRN ×2 (13:43→20:52)
--- NOTE | 2020-06-17 13:48 | P.DS ---
Providers Date of admission: 06/17/20 10:51 Attending physician: Koko Finnegan Consults: 06/17/20 12:15 Consult Physician Routine Consulting Provider: Saurabh Harvey Consult Reason/Comments: pelvic mass Do you want consulting provider notified?: Yes 06/17/20 12:18 Consult Physician Routine Consulting Provider: Miguel Kelly Consult Reason/Comments: hydronephrosis Do you want consulting provider notified?: Yes Primary care physician: Mariaelena Witt [facility] Course: Please refer to my HPI for further details Patient Condition at Discharge: Good Plan - Discharge Summary Discharge Rx Participant: Yes New Discharge Prescriptions: New Naproxen [Naprosyn] 250 mg PO BID PRN #30 tab PRN Reason: Pain No Action Acetaminophen Tab [Tylenol Tab] 1,000 mg PO Q6H PRN PRN Reason: Pain [id number] Acid [-U Capsule (formulary)] 1 cap PO DAILY Cholecalciferol [Vitamin D3 (25 Mcg = 1000 Iu)] 100 mcg PO DAILY Ascorbic Acid [Vitamin C] 1,000 mg PO DAILY Discharge Medication List Acetaminophen Tab [Tylenol Tab] 1,000 mg PO Q6H PRN 11/28/17 [History] Ascorbic Acid [Vitamin C] 1,000 mg PO DAILY 06/16/20 [History] Cholecalciferol [Vitamin D3 (25 Mcg = 1000 Iu)] 100 mcg PO DAILY 06/16/20 [History] Vgr-Lina-Pmsoz Acid [-U Capsule (formulary)] 1 cap PO DAILY 06/16/20 [History] Naproxen [Naprosyn] 250 mg PO BID PRN #30 tab 06/17/20 [Rx] Follow up Appointment(s)/Referral(s): Mariaelena Witt MD [Primary Care Provider] - 3 Days Discharge Disposition: HOME SELF-CARE
--- NOTE | 2020-06-17 13:48 | P.HPIM ---
History of Present Illness 44-year-old female came me in the hospital with complaints of low back pain patient has multiple complaints including unable to have a bowel movement for a day. Patient is bit melodramatic about all her symptoms and has multiple sym ptoms. Most significant ones being back pain and constipation. Patient is now complaining about left hip pain as well patient states she has osteoarthritis and rheumatoid arthritis and dislocation of hip from previous fall. Patient doesn't have any fever chills patient doesn't have any dysuria nausea vomiting. Denied any abdominal pain. Patient workup including CBC and CMP are essentially within normal notes patient has multiple imaging studies as follows abdominal pelvic CT, lumbar spine CT renal ultrasound transvaginal ultrasound. The only significant possible abnormalities and all these imagings is [id number] hydronephrosis on the left side and the possible hypodense lesion in the posterior wall of the uterus. ER physician ordered lower lumbar spine MRI and a pelvic MRI although patient doesn't want to get the imaging unless it's either open MRI unless she is completely sedated. Patient doesn't have any red flag signs of back pain Review of Systems REVIEW OF SYSTEMS: CONSTITUTIONAL: No fever, no malaise, no fatigue. HEENT: No recent visual problems or hearing problems. Denied any sore throat. CARDIOVASCULAR: No chest pain, orthopnea, PND, no palpitations, no syncope. PULMONARY: No shortness of breath, no cough, no hemoptysis. GASTROINTESTINAL: No diarrhea, no nausea, no vomiting, no abdominal pain. NEUROLOGICAL: No headaches, no weakness, no numbness. HEMATOLOGICAL: Denies any bleeding or petechiae. GENITOURINARY: Denies any burning micturition, frequency, or urgency. MUSCULOSKELETAL/RHEUMATOLOGICAL: As mentioned in HPI ENDOCRINE: Denies any polyuria or polydipsia. The rest of the 14-point review of systems is negative. 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 History of Any Multi-Drug Resistant Organisms: MRSA Date of last positivie culture/infection: 2010 MDRO Source:: uterus Past Surgical History: Appendectomy, Section Additional Past Surgical History / Comment(s): two d and c Past Anesthesia/Blood Transfusion Reactions: Previous Problems w/ Anesthesia Past Psychological History: PTSD Additional Psychological History / Comment(s): pt. states that PTSD was treated Smoking Status: Never smoker Past Alcohol Use History: None Reported Past Drug Use History: None Reported Medications and Allergies Home Medications Medication Instructions Recorded Confirmed Type Acetaminophen Tab [Tylenol Tab] 1,000 mg PO Q6H PRN 11/28/17 06/16/20 History Ascorbic Acid [Vitamin C] 1,000 mg PO DAILY 06/16/20 06/16/20 History Cholecalciferol [Vitamin D3 (25 100 mcg PO DAILY 06/16/20 06/16/20 History Mcg = 1000 Iu)] [id number]-[id number]-Cbqyv Acid 1 cap PO DAILY 06/16/20 06/16/20 History [-U Capsule (formulary)] Allergies Allergy/AdvReac Type Severity Reaction Status Date / Time acetaminophen [From Percocet] Allergy Anaphylaxis Verified 06/16/20 23:01 ciprofloxacin [From Cipro] Allergy Anaphylaxis Verified 06/16/20 23:01 coconut Allergy Anaphylaxis Verified 06/16/20 23:01 Fish Containing Products Allergy Anaphylaxis Verified 06/16/20 23:01 [Fish] fluticasone Allergy Anaphylaxis Verified 06/16/20 23:01 [From Flovent Diskus] Iodinated Contrast Media Allergy Swelling Verified 06/16/20 23:01 [Iodinated Contrast Media - IV Dye] iodine Allergy Swelling Verified 06/16/20 23:01 lamotrigine [From Lamictal] Allergy Anaphylaxis Verified 06/16/20 23:01 latex Allergy Rash/Hives Verified 06/16/20 23:01 naproxen Allergy Rash/Hives Verified 06/16/20 23:01 nitrofurantoin Allergy Rash/Hives Verified 06/16/20 23:01 [From Macrobid] oxcarbazepine Allergy Unknown Verified 06/16/20 23:01 [From Trileptal] oxycodone [From Percocet] Allergy Anaphylaxis Verified 06/16/20 23:01 Penicillins Allergy Anaphylaxis Verified 06/16/20 23:01 Quinolones Allergy Unknown Verified 06/16/20 23:01 shellfish derived [Shellfish] Allergy Swelling Verified 06/16/20 23:01 topiramate [From Topamax] Allergy Rash/Hives Verified 06/16/20 23:01 venom-honey bee Allergy Anaphylaxis Verified 06/16/20 23:01 [bee venom (honey bee)] venom-wasp [wasp venom] Allergy Anaphylaxis Verified 06/16/20 23:01 codeine AdvReac Vomiting Verified 06/16/20 23:01 diphenhydramine AdvReac Unknown Verified 06/16/20 23:01 [From Benadryl] divalproex sodium AdvReac Unknown Verified 06/16/20 23:01 [From Depakote] erythromycin base AdvReac Unknown Verified 06/16/20 23:01 medroxyprogesterone AdvReac Unknown Verified 06/16/20 23:01 [From Depo-Provera] paroxetine [From Paxil] AdvReac Unknown Verified 06/16/20 23:01 procaine [From Novocain] AdvReac Unknown Verified 06/16/20 23:01 Physical Exam Vitals: Vital Signs Temp Pulse Pulse Resp BP BP Pulse Ox 06/17/20 09:08 97.5 F L 99 20 111/72 95 06/17/20 04:08 98.0 F 95 16 109/73 97 06/16/20 23:57 98.0 F 76 18 122/73 100 06/16/20 22:14 82 18 119/65 98 06/16/20 20:47 86 18 133/82 97 06/16/20 19:25 98.5 F 102 H 24 124/82 97 Intake and Output 06/16/20 06/17/20 06/17/20 22:59 06:59 14:59 Other: Voiding Method Toilet # Voids 1 Weight 99.79 kg 99.79 kg PHYSICAL EXAMINATION: GENERAL: The patient is alert and oriented x3, not in any acute distress. Well developed, well nourished. HEENT: Pupils are round and equally reacting to light. EOMI. No scleral icterus. No conjunctival pallor. Normocephalic, atraumatic. No pharyngeal erythema. No thyromegaly. CARDIOVASCULAR: S1 and S2 present. No murmurs, rubs, or gallops. PULMONARY: Chest is clear to auscultation, no wheezing or crackles. ABDOMEN: Soft, nontender, nondistended, normoactive bowel sounds. No palpable organomegaly. MUSCULOSKELETAL: No joint swelling or deformity. EXTREMITIES: No cyanosis, clubbing, or pedal edema. NEUROLOGICAL: Gross neurological examination did not reveal any focal deficits. SKIN: No rashes. Results CBC & Chem 7: 06/16/20 20:30 06/16/20 20:30 Labs: Abnormal Lab Results - Last 24 Hours (Table) 06/16/20 Range/Units 20:30 Urine Appearance Cloudy H (Clear) Urine Blood Trace H (Negative) Ur Leukocyte Esterase Small H (Negative) Urine WBC 6 H (0-5) /hpf Ur Squamous Epith Cells 5 H (0-4) /hpf Urine Mucus Rare H (None) /hpf Thrombosis Risk Factor Assmnt - Choose All That Apply Any of the Below Risk Factors Present?: No Other Risk Factors: No Thrombosis Risk Factor Assessment Level: Very Low Risk Assessment and Plan Plan: -Back pain and complaints of constipation: All the workup that was done so far is negative. Her symptomatology appears to be psychosomatic for the most part. Although there are couple of findings which are not really impressive but were mentioned in the imaging studies included which included left-sided hydronephrosis and a possible posterior pelvic mass, because of which I consulted urology and gynecology. If they cleared the patient patient probably can be discharged to follow with PCP as an outpatient testing have symptomatology of constipation I discontinued opiates and patient was started on Toradol for pain along with GI prophylaxis -Left hip pain imaging studies are within normal limits -Gastroesophageal reflux disease -History of PTSD
[2020-06-17] MEDS: ACETAMINOPHEN TAB 500 MG TAB PO PRN (17:10)
--- NOTE | 2020-06-17 18:24 | P.OBCN ---
History of Present Illness Consult date: 06/17/20 Reason for consult: other (Back pain) Chief complaint: Back pain and abnormal ultrasound History of present illness: This patient is a 44-year-old multiparous patient who is admitted yesterday through the emergency department with multiple complaints mostly with back and lower leg pain. Patient apparently has had multiple other admissions for various problems. In the process of evaluation patient had a CAT scan and a pelvic ultrasound the CAT scan suggested a uterine mass. The emergency physician contacted Dr. Riddle last evening and she suggested a transvaginal ultrasound which only showed a 2.5 cm fluid collection in the endometrium and no evidence of a uterine mass. Patient's regular slate roofer helper is Dr. Kwon. 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 History of Any Multi-Drug Resistant Organisms: MRSA Year Discovered:: 2010 MDRO Source:: uterus Past Surgical History: Appendectomy, Section Additional Past Surgical History / Comment(s): two d and c Past Anesthesia/Blood Transfusion Reactions: Previous Problems w/ Anesthesia Past Psychological History: PTSD Additional Psychological History / Comment(s): pt. states that PTSD was treated Smoking Status: Never smoker Past Alcohol Use History: None Reported Past Drug Use History: None Reported Medications and Allergies Home Medications Medication Instructions Recorded Confirmed Type Acetaminophen Tab [Tylenol Tab] 1,000 mg PO Q6H PRN 11/28/17 06/16/20 History Ascorbic Acid [Vitamin C] 1,000 mg PO DAILY 06/16/20 06/16/20 History Cholecalciferol [Vitamin D3 (25 100 mcg PO DAILY 06/16/20 06/16/20 History Mcg = 1000 Iu)] Zev-Uqjk-Ihkku Acid 1 cap PO DAILY 06/16/20 06/16/20 History [-U Capsule (formulary)] Naproxen [Naprosyn] 250 mg PO BID PRN #30 tab 06/17/20 Rx Allergies Allergy/AdvReac Type Severity Reaction Status Date / Time acetaminophen [From Percocet] Allergy Anaphylaxis Verified 06/16/20 23:01 ciprofloxacin [From Cipro] Allergy Anaphylaxis Verified 06/16/20 23:01 coconut Allergy Anaphylaxis Verified 06/16/20 23:01 Fish Containing Products Allergy Anaphylaxis Verified 06/16/20 23:01 [Fish] fluticasone Allergy Anaphylaxis Verified 06/16/20 23:01 [From Flovent Diskus] Iodinated Contrast Media Allergy Swelling Verified 06/16/20 23:01 [Iodinated Contrast Media - IV Dye] iodine Allergy Swelling Verified 06/16/20 23:01 lamotrigine [From Lamictal] Allergy Anaphylaxis Verified 06/16/20 23:01 latex Allergy Rash/Hives Verified 06/16/20 23:01 naproxen Allergy Rash/Hives Verified 06/16/20 23:01 nitrofurantoin Allergy Rash/Hives Verified 06/16/20 23:01 [From Macrobid] oxcarbazepine Allergy Unknown Verified 06/16/20 23:01 [From Trileptal] oxycodone [From Percocet] Allergy Anaphylaxis Verified 06/16/20 23:01 Penicillins Allergy Anaphylaxis Verified 06/16/20 23:01 Quinolones Allergy Unknown Verified 06/16/20 23:01 shellfish derived [Shellfish] Allergy Swelling Verified 06/16/20 23:01 topiramate [From Topamax] Allergy Rash/Hives Verified 06/16/20 23:01 venom-honey bee Allergy Anaphylaxis Verified 06/16/20 23:01 [bee venom (honey bee)] venom-wasp [wasp venom] Allergy Anaphylaxis Verified 06/16/20 23:01 codeine AdvReac Vomiting Verified 06/16/20 23:01 diphenhydramine AdvReac Unknown Verified 06/16/20 23:01 [From Benadryl] divalproex sodium AdvReac Unknown Verified 06/16/20 23:01 [From Depakote] erythromycin base AdvReac Unknown Verified 06/16/20 23:01 medroxyprogesterone AdvReac Unknown Verified 06/16/20 23:01 [From Depo-Provera] paroxetine [From Paxil] AdvReac Unknown Verified 06/16/20 23:01 procaine [From Novocain] AdvReac Unknown Verified 06/16/20 23:01 Exam Vital Signs Temp Pulse Pulse Resp BP BP Pulse Ox 06/17/20 14:56 98.1 F 111 H 16 112/71 97 06/17/20 09:08 97.5 F L 99 20 111/72 95 06/17/20 04:08 98.0 F 95 16 109/73 97 06/16/20 23:57 98.0 F 76 18 122/73 100 06/16/20 22:14 82 18 119/65 98 06/16/20 20:47 86 18 133/82 97 06/16/20 19:25 98.5 F 102 H 24 124/82 97 Intake and Output 06/17/20 06/17/20 06/17/20 06:59 14:59 22:59 Other: Voiding Method Toilet # Voids 1 4 Weight 99.79 kg Results Result Diagrams: 06/16/20 20:30 06/16/20 20:30 Abnormal Lab Results - Last 24 Hours (Table) 06/16/20 Range/Units 20:30 Urine Appearance Cloudy H (Clear) Urine Blood Trace H (Negative) Ur Leukocyte Esterase Small H (Negative) Urine WBC 6 H (0-5) /hpf Ur Squamous Epith Cells 5 H (0-4) /hpf Urine Mucus Rare H (None) /hpf Assessment and Plan Assessment: This is a 44-year-old multiparous patient with various complaints including back and leg pain. Transvaginal ultrasound is unremarkable, only shows a small fluid collection in the endometrium. This most definitely is not the cause of her pain. I did recommend that she follow up with her regular slate roofer helper, Dr. Kwon, in 6 weeks for a repeat ultrasound and if the fluid were to persist she would need a hysteroscopy D&C at that time. Thank you very much for this consultation. (1) Back pain Current Visit: Yes Status: Acute Code(s): M54.9 - DORSALGIA, UNSPECIFIED SNOMED Code(s): 874847045
[2020-06-17] MEDS: FAMOTIDINE 20 MG TAB PO SCH (20:52)
[2020-06-17] MEDS ORDERED: MAGNESIUM HYDROXIDE 2,400 MG/10 ML CUP PO PRN (20:58)
[2020-06-17] MEDS ORDERED: bisacodyL 10 MG SUPP RECTAL PRN (20:59)
[2020-06-17] MEDS: DOCUSATE 100 MG CAP PO SCH (21:10)
[2020-06-18] MEDS: ACETAMINOPHEN TAB 500 MG TAB PO PRN ×3 (01:41→16:53)
[2020-06-18] MEDS: KETOROLAC 15 MG/ML 1 ML VIAL IVP PRN ×3 (05:10→17:30)
--- NOTE | 2020-06-18 06:38 | XR ---
EXAM: XR Abdomen, 2 Views CLINICAL HISTORY: ITS.REASON XR Reason: rule out obstruction TECHNIQUE: Frontal view of the abdomen/pelvis with upright view of the abdomen. COMPARISON: CT Abdomen/Pelvis dated 06/16/2020 FINDINGS: Intraperitoneal space: No free air. Gastrointestinal tract: Nonobstructive bowel gas pattern. Moderate fecal burden throughout the colon. Bones/joints: Unremarkable. IMPRESSION: Nonobstructive bowel gas pattern. Moderate fecal burden throughout the colon.
--- NOTE | 2020-06-18 07:46 | P.GSCN ---
History of Present Illness Consult date: 06/17/20 Reason for Consult: Left hydronephrosis Requesting physician: Maddie Mosher History of present illness: The patient is a 44-year-old white female with an unremarkable urologic history. She denies any prior history of kidney stones. She believes she was treated for a kidney infection in the past. For the past 2 weeks, she has experienced left-sided back and abdominal discomfort. Her primary complaint is const ipation. She denies dysuria and hematuria. 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 History of Any Multi-Drug Resistant Organisms: MRSA Year Discovered:: 2010 MDRO Source:: uterus Past Surgical History: Appendectomy, Section Additional Past Surgical History / Comment(s): two d and c Past Anesthesia/Blood Transfusion Reactions: Previous Problems w/ Anesthesia Past Psychological History: PTSD Additional Psychological History / Comment(s): pt. states that PTSD was treated Smoking Status: Never smoker Past Alcohol Use History: None Reported Past Drug Use History: None Reported Medications and Allergies Home Medications Medication Instructions Recorded Confirmed Type Acetaminophen Tab [Tylenol Tab] 1,000 mg PO Q6H PRN 11/28/17 06/16/20 History Ascorbic Acid [Vitamin C] 1,000 mg PO DAILY 06/16/20 06/16/20 History Cholecalciferol [Vitamin D3 (25 100 mcg PO DAILY 06/16/20 06/16/20 History Mcg = 1000 Iu)] Kbs-[id number]-Mkpmd Acid 1 cap PO DAILY 06/16/20 06/16/20 History [-U Capsule (formulary)] Naproxen [Naprosyn] 250 mg PO BID PRN #30 tab 06/17/20 Rx Allergies Allergy/AdvReac Type Severity Reaction Status Date / Time acetaminophen [From Percocet] Allergy Anaphylaxis Verified 06/16/20 23:01 ciprofloxacin [From Cipro] Allergy Anaphylaxis Verified 06/16/20 23:01 coconut Allergy Anaphylaxis Verified 06/16/20 23:01 Fish Containing Products Allergy Anaphylaxis Verified 06/16/20 23:01 [Fish] fluticasone Allergy Anaphylaxis Verified 06/16/20 23:01 [From Flovent Diskus] Iodinated Contrast Media Allergy Swelling Verified 06/16/20 23:01 [Iodinated Contrast Media - IV Dye] iodine Allergy Swelling Verified 06/16/20 23:01 lamotrigine [From Lamictal] Allergy Anaphylaxis Verified 06/16/20 23:01 latex Allergy Rash/Hives Verified 06/16/20 23:01 naproxen Allergy Rash/Hives Verified 06/16/20 23:01 nitrofurantoin Allergy Rash/Hives Verified 06/16/20 23:01 [From Macrobid] oxcarbazepine Allergy Unknown Verified 06/16/20 23:01 [From Trileptal] oxycodone [From Percocet] Allergy Anaphylaxis Verified 06/16/20 23:01 Penicillins Allergy Anaphylaxis Verified 06/16/20 23:01 Quinolones Allergy Unknown Verified 06/16/20 23:01 shellfish derived [Shellfish] Allergy Swelling Verified 06/16/20 23:01 topiramate [From Topamax] Allergy Rash/Hives Verified 06/16/20 23:01 venom-honey bee Allergy Anaphylaxis Verified 06/16/20 23:01 [bee venom (honey bee)] venom-wasp [wasp venom] Allergy Anaphylaxis Verified 06/16/20 23:01 codeine AdvReac Vomiting Verified 06/16/20 23:01 diphenhydramine AdvReac Unknown Verified 06/16/20 23:01 [From Benadryl] divalproex sodium AdvReac Unknown Verified 06/16/20 23:01 [From Depakote] erythromycin base AdvReac Unknown Verified 06/16/20 23:01 medroxyprogesterone AdvReac Unknown Verified 06/16/20 23:01 [From Depo-Provera] paroxetine [From Paxil] AdvReac Unknown Verified 06/16/20 23:01 procaine [From Novocain] AdvReac Unknown Verified 06/16/20 23:01 Surgical - Exam Vital Signs Temp Pulse Resp BP Pulse Ox 98.5 F 102 H 24 124/82 97 06/16/20 19:25 06/16/20 19:25 06/16/20 19:25 06/16/20 19:25 06/16/20 19:25 - General well developed, well nourished, no distress - Neck no masses, trachea midline - Respiratory normal respiratory effort - Abdomen Abdomen: soft, tender (Lower abdominal tenderness to palpation is noted), no masses, no guarding, no rigid, no rebound, no distended - Psychiatric oriented to time, oriented to person, oriented to place, speech is normal, memory intact Results - Labs 06/16/20 20:30 06/16/20 20:30 Abnormal Lab Results - Last 24 Hours (Table) 06/16/20 Range/Units 20:30 Urine Appearance Cloudy H (Clear) Urine Blood Trace H (Negative) Ur Leukocyte Esterase Small H (Negative) Urine WBC 6 H (0-5) /hpf Ur Squamous Epith Cells 5 H (0-4) /hpf Urine Mucus Rare H (None) /hpf Diabetes panel 06/16/20 Range/Units 20:30 Sodium 139 (137-145) mmol/L Potassium 4.4 (3.5-5.1) mmol/L Chloride 104 (98-107) mmol/L Carbon Dioxide 27 (22-30) mmol/L BUN 11 (7-17) mg/dL Creatinine 0.89 (0.52-1.04) mg/dL Glucose 95 (74-99) mg/dL Calcium 9.8 (8.4-10.2) mg/dL AST 24 (14-36) U/L ALT 13 (4-34) U/L Alkaline Phosphatase 81 (38-126) U/L Total Protein 7.9 (6.3-8.2) g/dL Albumin 4.2 (3.5-5.0) g/dL Calcium panel 06/16/20 Range/Units 20:30 Calcium 9.8 (8.4-10.2) mg/dL Albumin 4.2 (3.5-5.0) g/dL Pituitary panel 06/16/20 Range/Units 20:30 Sodium 139 (137-145) mmol/L Potassium 4.4 (3.5-5.1) mmol/L Chloride 104 (98-107) mmol/L Carbon Dioxide 27 (22-30) mmol/L BUN 11 (7-17) mg/dL Creatinine 0.89 (0.52-1.04) mg/dL Glucose 95 (74-99) mg/dL Calcium 9.8 (8.4-10.2) mg/dL Adrenal panel 06/16/20 Range/Units 20:30 Sodium 139 (137-145) mmol/L Potassium 4.4 (3.5-5.1) mmol/L Chloride 104 (98-107) mmol/L Carbon Dioxide 27 (22-30) mmol/L BUN 11 (7-17) mg/dL Creatinine 0.89 (0.52-1.04) mg/dL Glucose 95 (74-99) mg/dL Calcium 9.8 (8.4-10.2) mg/dL Total Bilirubin 0.4 (0.2-1.3) mg/dL AST 24 (14-36) U/L ALT 13 (4-34) U/L Alkaline Phosphatase 81 (38-126) U/L Total Protein 7.9 (6.3-8.2) g/dL Albumin 4.2 (3.5-5.0) g/dL - Imaging CT scan - abdomen: report reviewed, image reviewed Assessment and Plan (1) Hydronephrosis Current Visit: Yes Status: Acute Code(s): N13.30 - UNSPECIFIED HYDRONEPHROSIS SNOMED Code(s): 06009165 Plan: I had a lengthy discussion with the patient regarding the fact that she has left hydroureteronephrosis down to the iliac vessels. A calculus is not visible, and a cause of the hydronephrosis is not identified. I have suggested she undergo cystoscopy, left retrograde pyelogram, possible left ureteroscopy, possible left ureteral stent insertion as an outpatient next week. The rationale for this was discussed in detail, both in terms of determining the cause of the hydronephrosis as well as hopefully relieving obstruction if identified. Potential risks associated with the procedure were also reviewed. In the meantime, stool softeners and laxatives have been ordered. From my standpoint, she may be discharged home and managed as an outpatient. I anticipate she will be scheduled to undergo the aforementioned procedure on 06/25/2020. Time with Patient: Greater than 30
[2020-06-18] MEDS ORDERED: SENNOSIDES 8.6 MG TAB PO STA (09:46)
[2020-06-18] MEDS: FAMOTIDINE 20 MG TAB PO SCH ×2 (09:54→09:58)
[2020-06-18 09:57] VITALS: RESP 16
[2020-06-18] MEDS ORDERED: LACTULOSE 20 GM/30 ML CUP PO SCH (10:00)
[2020-06-18] MEDS: DOCUSATE 100 MG CAP PO SCH (13:32)
[2020-06-18 15:11] VITALS: BP 119/75; PULSE 82; TEMP 98
--- NOTE | 2020-06-18 15:27 | P.DS ---
Providers Date of admission: 06/17/20 10:51 Attending physician: Koko Finnegan Consults: 06/17/20 12:15 Consult Physician Routine Consulting Provider: Saurabh Harvey Consult Reason/Comments: pelvic mass Do you want consulting provider notified?: Yes 06/17/20 12:18 Consult Physician Routine Consulting Provider: Miguel Kelly Consult Reason/Comments: hydronephrosis Do you want consulting provider notified?: Yes Primary care physician: [place] [facility] Course: 44-year-old female came me in the hospital with complaints of low back pain patient has multiple complaints including unable to have a bowel movement for a day. Patient is bit melodramatic about all her symptoms and has multiple symptoms. Most significant ones being back pain and constipation. Patient is now complaining about left hip pain as well patient states she has osteoarthritis and rheumatoid arthritis and dislocation of hip from previous fall. Patient doesn't have any fever chills patient doesn't have any dysuria nausea vomiting. Denied any abdominal pain. Patient workup including CBC and CMP are essentially within normal notes patient has multiple imaging studies as follows abdominal pelvic CT, lumbar spine CT renal ultrasound transvaginal ultrasound. The only significant possible abnormalities and all these imagings is [id number] hydronephrosis on the left side and the possible hypodense lesion in the posterior wall of the uterus. ER physician ordered lower lumbar spine MRI and a pelvic MRI although patient doesn't want to get the imaging unless it's either open MRI unless she is completely sedated. Patient doesn't have any red flag signs of back pain 06/18/2020 Patient was a evaluated by gynecology as well as urology patient will follow-up with them as an outpatient and that not requiring any acute intervention at this time. Patient is still complaining of abdominal pain and abdominal x-ray did show retained stool patient will be given lactulose once she has a bowel movement patient will be discharged no other abnormality was clearly evident on all the imaging that was done here. PHYSICAL EXAMINATION: GENERAL: The patient is alert and oriented x3, not in any acute distress. Well developed, well nourished. HEENT: Pupils are round and equally reacting to light. EOMI. No scleral icterus. No conjunctival pallor. Normocephalic, atraumatic. No pharyngeal erythema. No thyromegaly. CARDIOVASCULAR: S1 and S2 present. No murmurs, rubs, or gallops. PULMONARY: Chest is clear to auscultation, no wheezing or crackles. ABDOMEN: Soft, nontender, nondistended, normoactive bowel sounds. No palpable organomegaly. MUSCULOSKELETAL: No joint swelling or deformity. EXTREMITIES: No cyanosis, clubbing, or pedal edema. NEUROLOGICAL: Gross neurological examination did not reveal any focal deficits. SKIN: No rashes. Assessment and Plan Plan: -Back pain and complaints of constipation: Patient had extensive workup as mentioned above patient was evaluated by gynecology as well as urology no further intervention is being recommended patient will be given lactulose for constipation once he moves her bowels patient can be discharged. Her symptomatology appears to be psychosomatic for the most part. Although there are couple of findings which are not really impressive but were mentioned in the imaging studies included which included left-sided hydronephrosis and a possible posterior pelvic mass, because of which urology and gynecology evaluated the patient. -Left hip pain imaging studies are within normal limits -Gastroesophageal reflux disease -History of PTSD Patient Condition at Discharge: Good Plan - Discharge Summary Discharge Rx Participant: Yes New Discharge Prescriptions: New Naproxen [Naprosyn] 250 mg PO BID PRN #30 tab PRN Reason: Pain polyethylene glycoL 3350 [Miralax] 17 gm PO DAILY PRN #15 packet PRN Reason: Constipation No Action Acetaminophen Tab [Tylenol Tab] 1,000 mg PO Q6H PRN PRN Reason: Pain Fhg-[id number] Acid [-U Capsule (formulary)] 1 cap PO DAILY Cholecalciferol [Vitamin D3 (25 Mcg = 1000 Iu)] 100 mcg PO DAILY Ascorbic Acid [Vitamin C] 1,000 mg PO DAILY Discharge Medication List Acetaminophen Tab [Tylenol Tab] 1,000 mg PO Q6H PRN 11/28/17 [History] Ascorbic Acid [Vitamin C] 1,000 mg PO DAILY 06/16/20 [History] Cholecalciferol [Vitamin D3 (25 Mcg = 1000 Iu)] 100 mcg PO DAILY 06/16/20 [Hist ory] Gsd-Bgxk-Ehznz Acid [-U Capsule (formulary)] 1 cap PO DAILY 06/16/20 [History] Naproxen [Naprosyn] 250 mg PO BID PRN #30 tab 06/17/20 [Rx] polyethylene glycoL 3350 [Miralax] 17 gm PO DAILY PRN #15 packet 06/18/20 [Rx] Follow up Appointment(s)/Referral(s): Shahid Kwon DO [REFERRING] - 6 Weeks (repeat trans vaginal ultrasound) Mariaelena Witt MD [Primary Care Provider] - 3 Days Discharge Disposition: HOME SELF-CARE
== END 2020-06-18 17:51 | disposition home or self-care (01) ==
LOC: EC 18:25 → 6PED 06-17 01:50 → OBSVTOIN 06-17 10:51 → INTOOBSV 06-17 10:51 → UNDODISIN 06-18 17:51
PROVIDERS: ADMIT Hospitalist; ATTEND Hospitalist
DX: K59.00 Constipation, unspecified (principal); M54.5 Low back pain; K21.9 Gastro-esophageal reflux disease without esophagitis; F43.10 Post-traumatic stress disorder, unspecified; N13.30 Unspecified hydronephrosis; M19.90 Unspecified osteoarthritis, unspecified site; M06.9 Rheumatoid arthritis, unspecified; G89.29 Other chronic pain; M79.669 Pain in unspecified lower leg; R11.0 Nausea; R68.83 Chills (without fever); R53.1 Weakness; R10.2 Pelvic and perineal pain; S73.005A Unspecified dislocation of left hip, initial encounter; R19.00 Intra-abdominal and pelvic swelling, mass and lump, unspecified site; Z90.89 Acquired absence of other organs; Z91.81 History of falling; Z86.14 Personal history of Methicillin resistant Staphylococcus aureus infection; Z20.822 Contact with and (suspected) exposure to COVID-19; Z85.41 Personal history of malignant neoplasm of cervix uteri; Z88.4 Allergy status to anesthetic agent; Z88.1 Allergy status to other antibiotic agents; Z91.030 Bee allergy status; Z91.041 Radiographic dye allergy status; Z91.040 Latex allergy status; Z88.5 Allergy status to narcotic agent; Z88.0 Allergy status to penicillin; Z91.013 Allergy to seafood; Z88.8 Allergy status to other drugs, medicaments and biological substances; Z91.018 Allergy to other foods; Z91.048 Other nonmedicinal substance allergy status
CPT/HCPCS: 96375 ×2; 96376 ×3; 96361; 96374; 99285; 36415; 80053; 83690; 85025; 81001; 81025; 87635; 73502; 74019; 76830; 76770; 72132; 74177; G0378 ×2; J2930; J2405; J1170 ×2; J1885 ×2; Q9967

== ENCOUNTER 2020-06-25 06:22 | Day surgery (SDC) | payer OTHER ==
[2020-06-22 18:48] VITALS: BMI 32.5
[~2020-06-25 06:22] MED LIST: CLINDAMYCIN 900 MG in DEXTROSE 5% IN WATER 50 ML IVPB PRN; GENTAMICIN 400 MG in SODIUM CHLORIDE 0.9% 100 ML IVPB PRN; HYDROmorphone 0.5 MG/0.5 ML SYRINGE IVP PRN; LACTATED RINGERS 1,000 ML IV SCH; LIDOCAINE 1% (10MG/ML) FOR IV START INTRADERMA PRN; MIDAZOLAM 2 MG/2 ML VIAL IV PRN; ONDANSETRON 4 MG/2 ML VIAL IVP ONE
[2020-06-25] MEDS ORDERED: LACTATED RINGERS 1,000 ML IV ONE (06:48)
[2020-06-25 06:58] LABS: Glucose,Whole Blood 103 mg/dL (75-99)
[2020-06-25] MEDS ORDERED: SUCCINYLCHOLINE CHLORIDE 100 MG/5 ML SYR IV ONE (07:39)
[2020-06-25] MEDS ORDERED: PROPOFOL 10 MG/ML 20 ML VIAL IV ONE (07:39)
[2020-06-25] MEDS ORDERED: fentaNYL (PF) 50 MCG/ML 2 ML AMP ONE (07:39)
[2020-06-25] MEDS ORDERED: MIDAZOLAM 2 MG/2 ML VIAL ONE (07:39)
[2020-06-25] MEDS ORDERED: IOPAMIDOL-370 50ML BTL MISCELLANE ONE ×2 (08:03)
[2020-06-25 08:53] VITALS: RESP 16; TEMP 97.6
--- NOTE | 2020-06-25 08:54 | P.OP ---
Date of Procedure: 06/25/20 Preoperative Diagnosis: Left hydronephrosis Postoperative Diagnosis: Bilateral hydronephrosis Procedure(s) Performed: Cystoscopy, bilateral retrograde pyelograms, left ureteroscopy, bilateral ureteral stent insertion Anesthesia: ENID Surgeon: Miguel Kelly Estimated Blood Loss (ml): 0 IV fluids (ml): 600 Pathology: none sent Condition: stable Disposition: PACU Indications for Procedure: The patient is a 44-year-old white female with an unremarkable urologic history. She denies any prior history of kidney stones. She believes she was treated for a kidney infection in the past. For the past 3 weeks, she has experienced left-sided back and abdominal discomfort. A CT scan on 06/16/20 revealed left hydroureteronephrosis down to the iliac vessels. A calculus was not visible, and a cause of the hydronephrosis was not identified. There was no evidence of right hydronephrosis, but in the past several days she has experienced right- sided discomfort. She denies dysuria and hematuria. Her primary complaint has been constipation. Operative Findings: Left hydroureteronephrosis down to the level of the iliac vessels. Right hydroureteronephrosis down to the right distal ureter, 2-3 cm cephalad to the right ureteral orifice. Description of Procedure: The patient was taken to the operating room and placed in the dorsolithotomy position, with legs supported in Lukasz stirrups. The external genitalia was prepped and draped sterilely. The 30 lens was used to introduce the 22-Stateless Stortz cystoscopic sheath through the urethra and into the bladder under direct vision. The bladder was examined in its entirety. Both ureteral orifices were of normal anatomic location and configuration. However, the right hemitrigone was elevated, apparently due to extrinsic compression. No tumors or foreign bodies were seen. Using a 10-Stateless cone-tipped catheter, bilateral retrograde pyelograms were performed. The course of each ureter was seen on fluoroscopy. On the left side, the distal third of the ureter appeared normal. However, at the level of the iliac vessels, a transition point was noted in the ureter proximal to this was dilated. The system drained adequately. There were no filling defects. On the right side, the distal 2-3 cm was narrowed, and the ureter proximal to this was dilated. Because of the elevation of the right hemitrigone, the angle would not allow ureteroscopy to be performed. An angle-tip 0.035 inch Glidewire was passed through the cystoscope. The right ureteral orifice was cannulated, and the Glidewire was slowly advanced up to the renal pelvis. A 26 cm, 4.8-Stateless double-J ureteral stent was placed over the wire. Proper stent positioning was verified fluoroscopically and endoscopically. There was evidence of a hydronephrotic alexandra. The cystoscope was removed, and the ACMI semirigid ureteroscope was advanced into the bladder under direct vision. The left ureteral orifice was cannulated, but the ureteroscope could be advanced only 1-2 cm due to diminished caliber of the ureter. The Glidewire was passed through the ureteroscope and advanced up to the left renal pelvis. A 26 cm, 4.8-Stateless double-J ureteral stent was placed over the wire. Proper stent positioning was verified fluoroscopically and endoscopically. The bladder was emptied and the cystoscope removed. The patient tolerated the procedure well was taken to the recovery room in stable condition.
[2020-06-25] MEDS ORDERED: KETOROLAC 15 MG/ML 1 ML VIAL ONE (10:09)
[2020-06-25] MEDS ORDERED: KETOROLAC 15 MG/ML 1 ML VIAL IVP ONE (10:12)
[2020-06-25 10:26] VITALS: BP 125/76; PULSE 88
--- NOTE | 2020-06-25 12:11 | FL ---
EXAMINATION TYPE: FL urography retrograde DATE OF EXAM: 06/25/2020 COMPARISON: NONE HISTORY: bilateral retrograde with stent placement TECHNIQUE: Fluoroscopy. FINDINGS: 1 min 30 sec fl time used bilateral retrograde with stent placement IMPRESSION: As Above.
== END 2020-06-25 10:25 | disposition home or self-care (01) ==
LOC: OR 06:22
PROVIDERS: ATTEND Urology
DX: N13.30 Unspecified hydronephrosis (principal); K21.9 Gastro-esophageal reflux disease without esophagitis; G89.29 Other chronic pain; M54.9 Dorsalgia, unspecified; E66.9 Obesity, unspecified; Z68.32 Body mass index [BMI] 32.0-32.9, adult; K58.9 Irritable bowel syndrome, unspecified; Z87.442 Personal history of urinary calculi; Z85.41 Personal history of malignant neoplasm of cervix uteri; Z87.448 Personal history of other diseases of urinary system; Z86.14 Personal history of Methicillin resistant Staphylococcus aureus infection; Z98.891 History of uterine scar from previous surgery; Z90.89 Acquired absence of other organs; F43.10 Post-traumatic stress disorder, unspecified; Z79.899 Other long term (current) drug therapy; Z88.6 Allergy status to analgesic agent; Z88.1 Allergy status to other antibiotic agents; Z91.041 Radiographic dye allergy status; Z88.5 Allergy status to narcotic agent; Z88.0 Allergy status to penicillin; Z91.013 Allergy to seafood; Z88.8 Allergy status to other drugs, medicaments and biological substances; Z91.048 Other nonmedicinal substance allergy status; Z88.4 Allergy status to anesthetic agent; Z91.030 Bee allergy status; Z91.038 Other insect allergy status
CPT/HCPCS: 81025; 74420; 52332; C2625; C1769; C1758; J2250; J2405; J3010; J1580; J0330; J2704; Q9967

== ENCOUNTER 2020-07-28 18:33 | Emergency (ER) | payer OTHER ==
[2020-07-28 18:42] VITALS: TEMP 97.8
--- NOTE | 2020-07-28 19:35 | XR ---
EXAMINATION TYPE: XR KUB DATE OF EXAM: 07/28/2020 COMPARISON: 06/18/2020 HISTORY: Abdominal pain TECHNIQUE: 2 views FINDINGS: There is left and right side ureteral stent. There is no sign of intestinal obstruction or pneumoperitoneum. I see no definite calcifications over the kidneys. There is no evidence of abdominal mass. Lung bases are clear. IMPRESSION: Nonacute abdomen. Bilateral ureteral stents noted.
[2020-07-28] MEDS ORDERED: HYDROmorphone 0.5 MG/0.5 ML SYRINGE IM STA (20:30)
[2020-07-28 21:32] LABS: Appearance,Urine Cloudy (Clear); Bacteria,Urine Rare /hpf; Bilirubin,Urine Negative (Negative); Blood,Urine Large (Negative); Budding Yeast,Urine Few /hpf; Color,Urine Yellow; Glucose,Urine (UA) Negative (Negative); Hyaline Casts,Urine 6 /lpf (0-2); Ketones,Urine Negative (Negative); Leukocyte Esterase,Urine Moderate (Negative); Mucus,Urine Few /hpf; Nitrite,Urine Negative (Negative); Protein,Urine 2+ (Negative); RBC,Urine >182 /hpf (0-5); Specific Gravity,Urine 1.022 (1.001-1.035); Squamous Epithelial Cell,Urine 5 /hpf (0-4); Urobilinogen,Urine <2.0 mg/dL (<2.0); WBC,Urine 41 /hpf (0-5)
--- NOTE | 2020-07-28 21:33 | CT ---
EXAMINATION TYPE: CT abdomen pelvis wo con DATE OF EXAM: 07/28/2020 COMPARISON: 11/16/2020 HISTORY: Chest and abdominal pain, hx HTN. CT DLP: 943 mGycm Automated exposure control for dose reduction was used. Images obtained from the diaphragm to the floor the pelvis with no contrast. Lung bases are clear. There is no pleural effusion. Heart size is normal. There is no pericardial eff usion. Spleen is enlarged and measures 15 cm. Liver shows no focal defect. The stomach is intact. There is n o pancreatic mass. Gallbladder is intact. There is no adrenal mass. The bile ducts are not dilated. There are bilateral double-J ureteral stents. There is moderate right-sided hydronephrosis. There is right-sided hydroureter. No calculus identified. Bladder distends smoothly. Uterus is anteverted. The re is perirectal edema. This measures up to 2 cm in thickness at the floor the pelvis. There are clips apparently from appendectomy. There is no mesenteric edema. There is no ascites or fr ee air. There is no bowel obstruction. Lumbar vertebra have normal alignment. Bony pelvis is intact. There is no compression fracture. Hip j oints are intact. IMPRESSION: Inflammatory changes at the floor the pelvis with perirectal fat stranding and edema which is worse t epps last exam. There is right-sided hydronephrosis and hydroureter which is new compared to old exam. Mild left-sided hydronephrosis slightly improved compared to old exam. Tumor and inflammatory diseas e are in the differential diagnosis. Follow-up recommended. Right-sided hydronephrosis is a significant change compared to old exam and the possibility of stent malfunction should also be considered.
[2020-07-28] MEDS ORDERED: cefTRIAXone IN SWFI 1,000 MG/10 ML SYRINGE IVP STA (21:41)
[2020-07-28] MEDS ORDERED: SULFAMETHOX-TMP 800-160MG 1 EACH TAB PO STA (22:26)
[2020-07-28 22:27] LABS: Basophils % (A) 0 %; Eosinophils # (A) 0.1 k/uL (0-0.7); Eosinophils % (A) 1 %; HCT 31.3 % (34.0-46.0); Lymphocytes # (A) 1.2 k/uL (1.0-4.8); Lymphocytes % (A) 10 %; MCH 25.8 pg (25.0-35.0); MCHC 33.1 g/dL (31.0-37.0); Mean Platelet Volume 7.1; Monocytes # (A) 0.5 k/uL (0-1.0); Monocytes % (A) 4 %; Neutrophils # (A) 10.1 k/uL (1.3-7.7); Neutrophils % (A) 84 %; Platelet Count 293 k/uL (150-450); RBC 4.02 m/uL (3.80-5.40); RDW 13.6 % (11.5-15.5); WBC 12.1 k/uL (3.8-10.6)
[2020-07-28 22:39] LABS: Albumin 3.9 g/dL (3.5-5.0); Calcium 9.7 mg/dL (8.4-10.2); Total Bilirubin 0.5 mg/dL (0.2-1.3); Total Protein 7.7 g/dL (6.3-8.2)
--- NOTE | 2020-07-28 22:41 | ED ---
Female Urogenital HPI - General Chief complaint: Urogenital Stated complaint: post kidney stent pain Time Seen by Provider: 07/28/20 20:23 Source: patient Mode of arrival: ambulatory Limitations: no limitations - History of Present Illness Initial comments: 45-year-old female history of newly diagnosed cervical cancer with pelvic/vaginal mass, urethral stents b/l placed 06/[address] Kelly presenting to the emergency department today for chief complaint of right flank pain. Patient states that she has had right plate pain for the past 2 days she states it is in the right mid back rating towards the stomach. She states she did strike her back and it hurt the other day but this was lower near lumbar spine she is not sure if this is related to the stent or hitting her back on the shelf in her shower. Patient denies anticoagulation use. ot has had hematuria since stents were placed, Denies fevers. Admits to chronic constipation second paolo to pelvic pass, which her oncologist at [facility] [place] stated was causing rectal irritation/swelling. Patient denies new symptoms in the pelvic or rectal region. Denies bloody or dark stools. Denies vaginal bleeding. Pt has no additional complaints. uPon arrival she appears nontoxic but is holding right flank. Afebrile. - Related Data Home Medications Medication Instructions Recorded Confirmed Acetaminophen Tab [Tylenol Tab] 1,000 mg PO Q8H PRN 11/28/17 07/28/20 Docusate [Colace] 100 mg PO DAILY PRN 06/22/20 07/28/20 Ibuprofen [Motrin Ib] 800 mg PO Q8H PRN 06/22/20 07/28/20 HYDROcodone/APAP 7.5-325MG [[place] 1 tab PO Q4H PRN 07/28/20 07/28/20 7.5-325] Polyethylene Glycol 3350 [Miralax] 17 gm PO DAILY PRN 07/28/20 07/28/20 Previous Rx's Medication Instructions Recorded HYDROcodone/APAP 10-325MG [[place] 1 tab PO Q6HR PRN 3 Days #12 tab 07/28/20 10-325] Sulfamethox-Tmp 800-160Mg [Bactrim 1 tab PO Q12HR 7 Days #14 tab 07/28/20 DS 800-160 mg] Allergies Allergy/AdvReac Type Severity Reaction Status Date / Time shellfish derived [Shellfish] Allergy Mild Swelling, Verified 07/28/20 21:41 nausea ciprofloxacin [From Cipro] Allergy Anaphylaxis Verified 07/28/20 21:41 coconut Allergy Anaphylaxis Verified 07/28/20 21:41 Fish Containing Products Allergy Anaphylaxis Verified 07/28/20 21:41 [Fish] fluticasone Allergy Anaphylaxis Verified 07/28/20 21:41 [From Flovent Diskus] honey Allergy Swelling Verified 07/28/20 21:41 Iodinated Contrast Media Allergy Swelling Verified 07/28/20 21:41 [Iodinated Contrast Media - IV Dye] iodine Allergy Swelling Verified 07/28/20 21:41 lamotrigine [From Lamictal] Allergy Anaphylaxis, Verified 07/28/20 21:41 seizures, hives latex Allergy Rash/Hives, Verified 07/28/20 21:41 dyspnea medroxyprogesterone Allergy Unknown Verified 07/28/20 21:41 [From Depo-Provera] naproxen Allergy Rash/Hives Verified 07/28/20 21:41 nitrofurantoin Allergy Rash/Hives Verified 07/28/20 21:41 [From Macrobid] oxcarbazepine Allergy Unknown Verified 07/28/20 21:41 [From Trileptal] oxycodone [From Percocet] Allergy Anaphylaxis Verified 07/28/20 21:41 Penicillins Allergy Anaphylaxis Verified 07/28/20 21:41 Quinolones Allergy Dyspnea Verified 07/28/20 21:41 talc Allergy Dyspnea Verified 07/28/20 21:41 topiramate [From Topamax] Allergy Rash/Hives, Verified 07/28/20 21:41 seizures venom-honey bee Allergy Anaphylaxis Verified 07/28/20 21:41 [bee venom (honey bee)] venom-wasp [wasp venom] Allergy Anaphylaxis Verified 07/28/20 21:41 codeine AdvReac Vomiting Verified 07/28/20 21:41 diphenhydramine AdvReac Unknown Verified 07/28/20 21:41 [From Benadryl] divalproex sodium AdvReac Unknown Verified 07/28/20 21:41 [From Depakote] erythromycin base AdvReac Unknown Verified 07/28/20 21:41 paroxetine [From Paxil] AdvReac suicidal Verified 07/28/20 21:41 procaine [From Novocain] AdvReac Unknown Verified 07/28/20 21:41 Review of Systems ROS Statement: Those systems with pertinent positive or pertinent negative responses have been documented in the HPI. ROS Other: All systems not noted in ROS Statement are negative. Past Medical History Past Medical History: Asthma, COPD, CVA/TIA, GERD/Reflux, Seizure Disorder, Skin Disorder Additional Past Medical History / Comment(s): TIA, brain bleed 2008. Hx seizure poss R/T Rx, 2012. 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 Fell 02/2020 w/ dislocation hip, bruised tailbone. Ezcema, psoriasis, rosacea. Recent constipation, c/o pain mid back/flank area. Varicose veins,kidney stents 06/29/20 History of Any Multi-Drug Resistant Organisms: MRSA Date of last positivie culture/infection: 2010 MDRO Source:: uterus Past Surgical History: Appendectomy, Section Additional Past Surgical History / Comment(s): 2 D&C, 2008 Past Anesthesia/Blood Transfusion Reactions: Previous Problems w/ Anesthesia, Motion Sickness Additional Past Anesthesia/Blood Transfusion Reaction / Comment(s): Reaction 2004 w/ D&C heart rate ecelerated, blood pressure bottomed out, uncontrolled; with C-S spinal block paralyzed lung, stopped breathing. Novocain caused leg tremors w/ dental work. Requesting Ativan in pre-op D/T anxiousness. Past Psychological History: ADD/ADHD, Anxiety, PTSD Smoking Status: Former smoker - Past Family History Father Family Medical History: Cancer, Deep Vein Thrombosis (DVT) Additional Family Medical History / Comment(s): thyroid goiter, poss cancer General Exam - General Exam Comments Initial Comments: General: The patient is awake and alert, in no distress Eye: +3 mm pupils are equal, round and reactive to light, extra-ocular movements are intact. No nystagmus. There is normal conjunctiva bilaterally. No signs of icterus. Ears, nose, mouth and throat: There are moist mucous membranes and no oral lesions. Neck: The neck is supple, there is no tenderness or JVD. Cardiovascular: There is a regular rate and rhythm. No murmur, rub or gallop is appreciated. Respiratory: Lungs are clear to auscultation, respirations are non-labored, breath sounds are equal. No wheezes, stridor, rales, or rhonchi. Gastrointestinal: Soft, non-distended, non-tender abdomen without masses or organomegaly noted. There is no rebound or guarding present. Musculoskeletal: Normal ROM, no tenderness. Strength 5/5. Sensation intact. Radial and DP pulses equal bilaterally 2+. Neurological: A&O x 3. CN II-XII intact grossly, There are no obvious motor or sensory deficits. Coordination appears grossly intact. Speech is normal. Skin: Skin is warm and dry and no rashes. bruise near right/midline lumbar spine. patient points to tenderness in the CVA region. does not appear associated. Psychiatric: Cooperative, appropriate mood & affect, normal judgment. Limitations: no limitations Course Vital Signs 07/28/20 07/28/20 18:40 22:47 Temperature 97.8 F Pulse Rate 85 82 Respiratory 18 16 Rate Blood Pressure 143/83 118/73 O2 Sat by Pulse 100 97 Oximetry Medical Decision Making - Lab Data Result diagrams: 07/28/20 21:50 07/28/20 21:50 Lab Results 07/28/20 07/28/20 07/28/20 Range/Units 20:59 21:50 21:50 WBC 12.1 H (3.8-10.6) k/uL RBC 4.02 (3.80-5.40) m/uL Hgb 10.4 L D (11.4-16.0) gm/dL Hct 31.3 L (34.0-46.0) % MCV 78.0 L (80.0-100.0) fL MCH 25.8 (25.0-35.0) pg MCHC 33.1 (31.0-37.0) g/dL RDW 13.6 (11.5-15.5) % Plt Count 293 (150-450) k/uL MPV 7.1 Neutrophils % 84 % Lymphocytes % 10 % Monocytes % 4 % Eosinophils % 1 % Basophils % 0 % Neutrophils # 10.1 H (1.3-7.7) k/uL Lymphocytes # 1.2 (1.0-4.8) k/uL Monocytes # 0.5 (0-1.0) k/uL Eosinophils # 0.1 (0-0.7) k/uL Basophils # 0.0 (0-0.2) k/uL Sodium 139 (137-145) mmol/L Potassium 5.0 (3.5-5.1) mmol/L Chloride 108 H (98-107) mmol/L Carbon Dioxide 23 (22-30) mmol/L Anion Gap 8 mmol/L BUN 14 (7-17) mg/dL Creatinine 1.03 (0.52-1.04) mg/dL Est GFR (CKD-EPI)AfAm 76 (>60 ml/min/1.73 sqM) Est GFR (CKD-EPI)NonAf 66 (>60 ml/min/1.73 sqM) Glucose 97 (74-99) mg/dL Calcium 9.7 (8.4-10.2) mg/dL Total Bilirubin 0.5 (0.2-1.3) mg/dL AST 43 H (14-36) U/L ALT 30 (4-34) U/L Alkaline Phosphatase 132 H (38-126) U/L Total Protein 7.7 (6.3-8.2) g/dL Albumin 3.9 (3.5-5.0) g/dL Urine Color Yellow Urine Appearance Cloudy H (Clear) Urine pH 6.0 (5.0-8.0) Ur Specific [place] 1.022 (1.001-1.035) Urine Protein 2+ H (Negative) Urine Glucose (UA) Negative (Negative) Urine Ketones Negative (Negative) Urine Blood Large H (Negative) Urine Nitrite Negative (Negative) Urine Bilirubin Negative (Negative) Urine Urobilinogen <2.0 (<2.0) mg/dL Ur Leukocyte Esterase Moderate H (Negative) Urine RBC >182 H (0-5) /hpf Urine WBC 41 H (0-5) /hpf Ur Squamous Epith Cells 5 H (0-4) /hpf Urine Bacteria Rare H (None) /hpf Hyaline Casts 6 H (0-2) /lpf Urine Mucus Few H (None) /hpf Urine Yeast (Budding) Few H (None) /hpf - EKG Data EKG Comments: 45yo presenting for flank pain. which is felt to be CVA tenderness on exam. erica viated with dilaudid. patient labs reveal decrease in HgB from over 30 days ago... pt has had hematuria since the procedure nearly a month ago- feel there is liekly correlation, recommend repeat CBC in next 2 days (pt states this is possible with pCP, recommend return to ER if not). denies rectal bl eeding/vaginal bleeding. pt CT revealed the chronic mass with rectal inflammation, we discussed these findings and she states she was told this would be normal with her mass. No evidence of abscess. No fevers. Consulted Dr Almeida in regards to the perinephretic stranding/hydronephrosis. He believes its likely reflux from stents in setting of normal creatinine. Patient pain controlled, she appears well there is bacteria in urine with mild leukocytosis, will treat with bactrim and discharge with urology, oncology and pcp f/u. Disposition Clinical Impression: Right flank pain, Bacteria in urine, Anemia Disposition: HOME SELF-CARE Condition: Good Instructions (If sedation given, give patient instructions): Hydronephrosis (ED) Additional Instructions: Please use medication as discussed. Please follow-up with urology in next 3-4 days. Please return to emergency room if the symptoms increase or worsen or for any other concerns. Prescriptions: Sulfamethox-Tmp 800-160Mg [Bactrim DS 800-160 mg] 1 tab PO Q12HR 7 Days #14 tab HYDROcodone/APAP 10-325MG [[place] 10-325] 1 tab PO Q6HR PRN 3 Days #12 tab PRN Reason: Pain Is patient prescribed a controlled substance at d/c from ED?: No Referrals: Mariaelena Witt MD [Primary Care Provider] - 1-2 days Mgiuel Kelly MD [STAFF PHYSICIAN] - 1-2 days Time of Disposition: 23:02
[2020-07-28 22:49] VITALS: BP 118/73; PULSE 82; RESP 16
[2020-07-28 23:02] LABS: HGB 10.4 gm/dL (11.4-16.0)
== END 2020-07-28 23:50 | disposition home or self-care (01) ==
LOC: EC 18:33
DX: R82.71 Bacteriuria (principal); D64.9 Anemia, unspecified; I10 Essential (primary) hypertension; J44.9 Chronic obstructive pulmonary disease, unspecified; K21.9 Gastro-esophageal reflux disease without esophagitis; F41.9 Anxiety disorder, unspecified; K59.09 Other constipation; Z90.49 Acquired absence of other specified parts of digestive tract; Z87.891 Personal history of nicotine dependence; Z85.41 Personal history of malignant neoplasm of cervix uteri; Z86.73 Personal history of transient ischemic attack (TIA), and cerebral infarction without residual deficits
CPT/HCPCS: 36415; 80053; 85025; 81001; 87086; 74018; 74176; 99284; 96372; J1170

== ENCOUNTER 2020-08-06 15:41 | Observation (INO) | payer OTHER ==
[2020-08-06] MEDS ORDERED: HYDROmorphone 1 MG/ML 1 ML SYRINGE IVP STA (16:43)
--- NOTE | 2020-08-06 16:46 | ED ---
General Adult HPI - General Chief complaint: Urogenital Stated complaint: Kidney Stents Bleeding Time Seen by Provider: 08/06/20 16:20 Source: patient, RN notes reviewed Mode of arrival: ambulatory Limitations: no limitations - History of Present Illness Initial comments: Patient is a pleasant 45-year-old female presenting to the emergency Department with complaints of abdominal and back discomfort. Patient states she does have known cervical cancer. Patient states there is tumor locking her ureter and bladder. Patient did have ureteral stents placed secondary to this. Patient is having increase discomfort and hematuria. No fevers. Patient is on [place] at home without improvement of symptoms. - Related Data Home Medications Medication Instructions Recorded Confirmed Ibuprofen [Motrin Ib] 800 mg PO Q8H PRN 06/22/20 08/06/20 HYDROcodone/APAP 7.5-325MG [[place] 1 tab PO Q4H PRN 07/28/20 08/06/20 7.5-325] Polyethylene Glycol 3350 [Miralax] 17 gm PO DAILY PRN 07/28/20 08/06/20 Morphine Sulfate ER [Ms Contin] 15 mg PO Q12HR PRN 08/06/20 08/06/20 Sennosides [Senna] 8.6 mg PO BID PRN 08/06/20 08/06/20 Allergies Allergy/AdvReac Type Severity Reaction Status Date / Time shellfish derived [Shellfish] Allergy Mild Swelling, Verified 08/06/20 17:25 nausea ciprofloxacin [From Cipro] Allergy Anaphylaxis Verified 08/06/20 17:25 coconut Allergy Anaphylaxis Verified 08/06/20 17:25 Fish Containing Products Allergy Anaphylaxis Verified 08/06/20 17:25 [Fish] fluticasone Allergy Anaphylaxis Verified 08/06/20 17:25 [From Flovent Diskus] honey Allergy Swelling Verified 08/06/20 17:25 Iodinated Contrast Media Allergy Swelling Verified 08/06/20 17:25 [Iodinated Contrast Media - IV Dye] iodine Allergy Swelling Verified 08/06/20 17:25 lamotrigine [From Lamictal] Allergy Anaphylaxis, Verified 08/06/20 17:25 seizures, hives latex Allergy Rash/Hives, Verified 08/06/20 17:25 dyspnea medroxyprogesterone Allergy Unknown Verified 08/06/20 17:25 [From Depo-Provera] naproxen Allergy Rash/Hives Verified 08/06/20 17:25 nitrofurantoin Allergy Rash/Hives Verified 08/06/20 17:25 [From Macrobid] oxcarbazepine Allergy Unknown Verified 08/06/20 17:25 [From Trileptal] oxycodone [From Percocet] Allergy Anaphylaxis Verified 08/06/20 17:25 Penicillins Allergy Anaphylaxis Verified 08/06/20 17:25 Quinolones Allergy Dyspnea Verified 08/06/20 17:25 talc Allergy Dyspnea Verified 08/06/20 17:25 topiramate [From Topamax] Allergy Rash/Hives, Verified 08/06/20 17:25 seizures venom-honey bee Allergy Anaphylaxis Verified 08/06/20 17:25 [bee venom (honey bee)] venom-wasp [wasp venom] Allergy Anaphylaxis Verified 08/06/20 17:25 codeine AdvReac Vomiting Verified 08/06/20 17:25 diphenhydramine AdvReac Unknown Verified 08/06/20 17:25 [From Benadryl] divalproex sodium AdvReac Unknown Verified 08/06/20 17:25 [From Depakote] erythromycin base AdvReac Unknown Verified 08/06/20 17:25 paroxetine [From Paxil] AdvReac suicidal Verified 08/06/20 17:25 procaine [From Novocain] AdvReac Unknown Verified 08/06/20 17:25 Review of Systems ROS Statement: Those systems with pertinent positive or pertinent negative responses have been documented in the HPI. ROS Other: All systems not noted in ROS Statement are negative. Constitutional: Denies: fever Eyes: Denies: eye pain ENT: Denies: ear pain Respiratory: Denies: cough Cardiovascular: Denies: chest pain Endocrine: Denies: fatigue Gastrointestinal: Reports: as per HPI, abdominal pain Genitourinary: Denies: dysuria Musculoskeletal: Reports: as per HPI, back pain Skin: Denies: rash Neurological: Denies: weakness Past Medical History Past Medical History: Asthma, COPD, CVA/TIA, GERD/Reflux, Seizure Disorder, Skin Disorder Additional Past Medical History / Comment(s): TIA, brain bleed 2008. Hx seizure poss R/T Rx, 2013. 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 Fell 02/2020 w/ dislocation hip, bruised tailbone. Ezcema, psoriasis, rosacea. Recent constipation, c/o pain mid back/flank area. Varicose veins,kidney stents 06/29/20 History of Any Multi-Drug Resistant Organisms: MRSA Date of last positivie culture/infection: 2010 MDRO Source:: uterus Past Surgical History: Appendectomy, Section Additional Past Surgical History / Comment(s): 2 D&C, 2008 Past Anesthesia/Blood Transfusion Reactions: Previous Problems w/ Anesthesia, Motion Sickness Additional Past Anesthesia/Blood Transfusion Reaction / Comment(s): Reaction 2004 w/ D&C heart rate ecelerated, blood pressure bottomed out, uncontrolled; with C-S spinal block paralyzed lung, stopped breathing. Novocain caused leg tremors w/ dental work. Requesting Ativan in pre-op D/T anxiousness. Past Psychological History: ADD/ADHD, Anxiety, PTSD Smoking Status: Former smoker Past Alcohol Use History: None Reported Past Drug Use History: None Reported - Past Family History Father Family Medical History: Cancer, Deep Vein Thrombosis (DVT) Additional Family Medical History / Comment(s): thyroid goiter, poss cancer General Exam Limitations: no limitations General appearance: alert, in no apparent distress Head exam: Present: normocephalic Eye exam: Present: normal appearance Neck exam: Present: normal inspection Respiratory exam: Present: normal lung sounds bilaterally Cardiovascular Exam: Present: normal rhythm, tachycardia Expanded Peripheral pulses: 2+: Dorsalis Pedis (R), Dorsalis Pedis (L) GI/Abdominal exam: Present: soft, tenderness (Moderate diffuse tenderness). Absent: distended Extremities exam: Present: normal inspection Back exam: Present: normal inspection. Absent: tenderness, CVA tenderness (R), CVA tenderness (L) Neurological exam: Present: alert Psychiatric exam: Present: normal affect, normal mood Skin exam: Present: normal color Course Vital Signs 08/06/20 15:43 Temperature 98.2 F Pulse Rate 118 H Respiratory 18 Rate Blood Pressure 140/68 O2 Sat by Pulse 98 Oximetry Medical Decision Making - Medical Decision Making Patient reevaluated and still having discomfort however not as severe. Case was discussed with Dr. Lee who is familiar with this patient. He states if patient wants to go home he is okay with that and she can follow-up with her ot her physician. This was relayed to patient however patient is not comfortable with discharge home. She is aware that there is unlikely any intervention or procedure however Dr. Lee will keep her for pain control. Patient is agreeable with this and would like to stay. - Lab Data Result diagrams: 08/06/20 16:50 08/06/20 16:50 Lab Results 08/06/20 08/06/20 08/06/20 Range/Units 16:50 16:50 16:50 WBC 9.2 (3.8-10.6) k/uL RBC 3.67 L (3.80-5.40) m/uL Hgb 9.4 L (11.4-16.0) gm/dL Hct 28.6 L (34.0-46.0) % MCV 78.0 L (80.0-100.0) fL MCH 25.7 (25.0-35.0) pg MCHC 33.0 (31.0-37.0) g/dL RDW 13.8 (11.5-15.5) % Plt Count 297 (150-450) k/uL MPV 7.3 Neutrophils % 77 % Lymphocytes % 14 % Monocytes % 6 % Eosinophils % 1 % Basophils % 1 % Neutrophils # 7.1 (1.3-7.7) k/uL Lymphocytes # 1.3 (1.0-4.8) k/uL Monocytes # 0.5 (0-1.0) k/uL Eosinophils # 0.1 (0-0.7) k/uL Basophils # 0.1 (0-0.2) k/uL Sodium 139 (137-145) mmol/L Potassium 4.3 (3.5-5.1) mmol/L Chloride 104 (98-107) mmol/L Carbon Dioxide 27 (22-30) mmol/L Anion Gap 8 mmol/L BUN 14 (7-17) mg/dL Creatinine 0.95 (0.52-1.04) mg/dL Est GFR (CKD-EPI)AfAm 85 (>60 ml/min/1.73 sqM) Est GFR (CKD-EPI)NonAf 74 (>60 ml/min/1.73 sqM) Glucose 98 (74-99) mg/dL Calcium 9.7 (8.4-10.2) mg/dL Total Bilirubin 0.4 (0.2-1.3) mg/dL AST 52 H (14-36) U/L ALT 36 H (4-34) U/L Alkaline Phosphatase 158 H (38-126) U/L Total Protein 7.5 (6.3-8.2) g/dL Albumin 3.7 (3.5-5.0) g/dL Amylase 35 (30-110) U/L Lipase 32 (23-300) U/L Urine Color Red Urine Appearance Turbid H (Clear) Urine pH 6.5 (5.0-8.0) Ur Specific [place] 1.023 (1.001-1.035) Urine Protein 2+ H (Negative) Urine Glucose (UA) Negative (Negative) Urine Ketones Negative (Negative) Urine Blood Large H (Negative) Urine Nitrite Negative (Negative) Urine Bilirubin Negative (Negative) Urine Urobilinogen <2.0 (<2.0) mg/dL Ur Leukocyte Esterase Moderate H (Negative) Urine RBC >182 H (0-5) /hpf Urine WBC 45 H (0-5) /hpf Urine Mucus Few H (None) /hpf Urine Yeast (Budding) Moderate H (None) /hpf - Radiology Data Radiology results: image reviewed (KUB shows ureteral stents. No acute abdomen. Reaction at lung base.) Disposition Clinical Impression: Ureteral colic Disposition: ADMITTED IP TO THIS HOSP Is patient prescribed a controlled substance at d/c from ED?: No Referrals: Mariaelena Witt MD [Primary Care Provider] - 1-2 days Decision Time: 18:14
[2020-08-06 17:11] LABS: Basophils # (A) 0.1 k/uL (0-0.2); Basophils % (A) 1 %; Eosinophils # (A) 0.1 k/uL (0-0.7); Eosinophils % (A) 1 %; HCT 28.6 % (34.0-46.0); HGB 9.4 gm/dL (11.4-16.0); Lymphocytes # (A) 1.3 k/uL (1.0-4.8); Lymphocytes % (A) 14 %; MCH 25.7 pg (25.0-35.0); Mean Platelet Volume 7.3; Monocytes # (A) 0.5 k/uL (0-1.0); Monocytes % (A) 6 %; Neutrophils # (A) 7.1 k/uL (1.3-7.7); Neutrophils % (A) 77 %; Platelet Count 297 k/uL (150-450); RBC 3.67 m/uL (3.80-5.40); RDW 13.8 % (11.5-15.5); WBC 9.2 k/uL (3.8-10.6)
[2020-08-06 17:20] LABS: Appearance,Urine Turbid (Clear); Bilirubin,Urine Negative (Negative); Blood,Urine Large (Negative); Budding Yeast,Urine Moderate /hpf; Color,Urine Red; Glucose,Urine (UA) Negative (Negative); Ketones,Urine Negative (Negative); Leukocyte Esterase,Urine Moderate (Negative); Mucus,Urine Few /hpf; Nitrite,Urine Negative (Negative); PH, Urine 6.5 (5.0-8.0); Protein,Urine 2+ (Negative); RBC,Urine >182 /hpf (0-5); Specific Gravity,Urine 1.023 (1.001-1.035); Urobilinogen,Urine <2.0 mg/dL (<2.0); WBC,Urine 45 /hpf (0-5)
[2020-08-06 17:21] LABS: Albumin 3.7 g/dL (3.5-5.0); Calcium 9.7 mg/dL (8.4-10.2); Potassium 4.3 mmol/L (3.5-5.1); Total Bilirubin 0.4 mg/dL (0.2-1.3); Total Protein 7.5 g/dL (6.3-8.2)
--- NOTE | 2020-08-06 17:56 | XR ---
EXAMINATION TYPE: XR KUB DATE OF EXAM: 08/06/2020 COMPARISON: 07/28/2020 HISTORY: Pain TECHNIQUE: 2 views FINDINGS: 2 views upright were obtained at show bilateral ureteral stents. Bowel gas pattern is elif l. There is no sign of intestinal obstruction or pneumoperitoneum. Fecal pattern is normal. Lung base s are clear of consolidation. There is minimal density at the costophrenic angles. IMPRESSION: Ureteral stents not significantly different than old exam. Nonacute abdomen. There is new minimal pleural reaction at the lung bases compared to old exam.
[2020-08-06] MEDS ORDERED: HYDROmorphone 0.5 MG/0.5 ML SYRINGE IVP PRN (18:14)
[2020-08-06] MEDS ORDERED: NALOXONE 0.4 MG/ML 1 ML VIAL IV PRN (18:14)
[2020-08-06] MEDS: HYDROmorphone 1 MG/ML 1 ML SYRINGE IVP PRN ×2 (18:52→22:58)
[2020-08-06] MEDS: SODIUM CHLORIDE 0.9% 1,000 ML IV SCH (18:56)
[2020-08-07] MEDS: HYDROmorphone 1 MG/ML 1 ML SYRINGE IVP PRN ×7 (01:44→23:33)
[2020-08-07] MEDS: ONDANSETRON 4 MG/2 ML VIAL IVP PRN ×4 (01:45→23:34)
[2020-08-07] MEDS: PANTOPRAZOLE 40 MG/10 ML VIAL IV SCH (07:52)
[2020-08-07] MEDS ORDERED: LACTULOSE 20 GM/30 ML CUP PO PRN (08:41)
[2020-08-07] MEDS ORDERED: ACETAMINOPHEN TAB 500 MG TAB PO PRN (08:42)
[2020-08-07 09:43] LABS: Basophils # (A) 0.06 X 10*3/uL (0.00-0.10); Basophils % (A) 0.5 %; Eosinophils # (A) 0.06 X 10*3/uL (0.04-0.35); Eosinophils % (A) 0.5 %; HCT 30.8 % (37.2-46.3); HGB 8.9 g/dL (12.0-15.0); Lymphocytes # (A) 1.49 X 10*3/uL (0.90-5.00); Lymphocytes % (A) 13.6 %; MCH 23.9 pg (27.0-32.0); MCHC 28.9 g/dL (32.0-37.0); MCV 82.8 fL (80.0-97.0); Mean Platelet Volume 10.6 fL (9.5-12.2); Monocytes # (A) 0.82 X 10*3/uL (0.20-1.00); Monocytes % (A) 7.5 %; Neutrophils # (A) 8.44 X 10*3/uL (1.80-7.70); Neutrophils % (A) 77.4 %; Platelet Count 360 X 10*3/uL (140-440); RBC 3.72 X 10*6/uL (4.10-5.20); RDW 14.3 % (11.5-14.5); WBC 10.92 X 10*3/uL (4.50-10.00)
[2020-08-07] MEDS: IBUPROFEN 400 MG TAB PO PRN ×3 (10:06→22:41)
[2020-08-07] MEDS: polyethylene glycoL 3350 17 GM POWD.PACK PO SCH (10:06)
[2020-08-07 10:30] LABS: African American GFR (CKD) 90.1 (60.0-200.0); Albumin/Globulin Ratio 1.25 (1.60-3.17); Anion Gap 10.3 mmol/L (4.00-12.00); BUN/Creat Ratio 12.22 Ratio (12.00-20.00); Calcium 9.2 mg/dL (8.7-10.3); Carbon Dioxide 23.7 mmol/L (21.6-31.8); Globulin 3.2 g/dL (1.6-3.3); Non-African American GFR(CKD) 77.8 (60.0-200.0); Potassium 4.5 mmol/L (3.5-5.5); Total Bilirubin 0.4 mg/dL (0.3-1.2); Total Protein 7.2 g/dL (6.2-8.2)
--- NOTE | 2020-08-07 15:47 | P.GSHP ---
History of Present Illness H&P Date: 08/07/20 Chief Complaint: Hematuria, pelvic pain The patient is a 45-year-old white female with an unremarkable urologic history. She denies any prior history of kidney stones. She believes she was treated for a kidney infection in the past. She was hospitalized in June 2020 with complaints of left-sided back and abdominal discomfort along with constipation. A CT scan on 06/16/20 revealed left hydroureteronephrosis down to the iliac vessels. A calculus was not visible, and a cause of the hydronephrosis was not identified. She underwent cystoscopy with bilateral retrograde pyelograms. She was found to have bilateral hydroureteronephrosis, down to the level of the iliac vessels on the left and the distal ureter on the right. Bilateral ureteral stents were placed. She has been evaluated by Dr. Fransisco Peña at [facility] and diagnosed with stage IIIB cervical cancer. She underwent a PET/CT scan, the results of which are pending. Her initial treatme nt will consist of systemic chemotherapy. She has an appointment to see a [facility] physician on August 13 for pain management. She presented to the ER yesterday with increased abdominal and back discomfort associated with gross hematuria. She reports difficulty voiding. A KUB x-ray shows the ureteral stents to be properly positioned. - Constitutional Constitutional: Denies chills, Denies fever - Gastrointestinal Gastrointestinal: Denies constipation - Genitourinary (Female) Genitourinary: Reports difficulty voiding, Reports dysuria, Reports hematuria Past Medical History Past Medical History: Asthma, COPD, CVA/TIA, GERD/Reflux, Seizure Disorder, Skin Disorder Additional Past Medical History / Comment(s): TIA, brain bleed 2008. Hx seizure poss R/T Rx, 2012. 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 Fell 02/2020 w/ dislocation hip, bruised tailbone. Ezcema, psoriasis, rosacea. Recent constipation, c/o pain mid back/flank area. Varicose veins,kidney stents 06/29/20 History of Any Multi-Drug Resistant Organisms: MRSA Date of last positivie culture/infection: 2010 MDRO Source:: uterus Past Surgical History: Appendectomy, Section Additional Past Surgical History / Comment(s): 2 D&C, 2008 Past Anesthesia/Blood Transfusion Reactions: Previous Problems w/ Anesthesia, Motion Sickness Additional Past Anesthesia/Blood Transfusion Reaction / Comment(s): Reaction 20 05 w/ D&C heart rate ecelerated, blood pressure bottomed out, uncontrolled; with C-S spinal block paralyzed lung, stopped breathing. Novocain caused leg tremors w/ dental work. Requesting Ativan in pre-op D/T anxiousness. Past Psychological History: ADD/ADHD, Anxiety, PTSD Additional Psychological History / Comment(s): states that PTSD was treated Smoking Status: Former smoker Past Alcohol Use History: None Reported Additional Past Alcohol Use History / Comment(s): smoked 2 cartons of cigarettes in 1 day 2000 Past Drug Use History: None Reported - Past Family History Father Family Medical History: Cancer, Deep Vein Thrombosis (DVT) Additional Family Medical History / Comment(s): thyroid goiter, poss cancer Medications and Allergies Home Medications Medication Instructions Recorded Confirmed Type Ibuprofen [Motrin Ib] 800 mg PO Q8H PRN 06/22/20 08/06/20 History HYDROcodone/APAP 7.5-325MG [[place] 1 tab PO Q4H PRN 07/28/20 08/06/20 History 7.5-325] Polyethylene Glycol 3350 [Miralax] 17 gm PO DAILY PRN 07/28/20 08/06/20 History Morphine Sulfate ER [Ms Contin] 15 mg PO Q12HR PRN 08/06/20 08/06/20 History Sennosides [Senna] 8.6 mg PO BID PRN 08/06/20 08/06/20 History Allergies Allergy/AdvReac Type Severity Reaction Status Date / Time shellfish derived [Shellfish] Allergy Mild Swelling, Verified 08/06/20 17:25 nausea ciprofloxacin [From Cipro] Allergy Anaphylaxis Verified 08/06/20 17:25 coconut Allergy Anaphylaxis Verified 08/06/20 17:25 Fish Containing Products Allergy Anaphylaxis Verified 08/06/20 17:25 [Fish] fluticasone Allergy Anaphylaxis Verified 08/06/20 17:25 [From Flovent Diskus] honey Allergy Swelling Verified 08/06/20 17:25 Iodinated Contrast Media Allergy Swelling Verified 08/06/20 17:25 [Iodinated Contrast Media - IV Dye] iodine Allergy Swelling Verified 08/06/20 17:25 lamotrigine [From Lamictal] Allergy Anaphylaxis, Verified 08/06/20 17:25 seizures, hives latex Allergy Rash/Hives, Verified 08/06/20 17:25 dyspnea medroxyprogesterone Allergy Unknown Verified 08/06/20 17:25 [From Depo-Provera] naproxen Allergy Rash/Hives Verified 08/06/20 17:25 nitrofurantoin Allergy Rash/Hives Verified 08/06/20 17:25 [From Macrobid] oxcarbazepine Allergy Unknown Verified 08/06/20 17:25 [From Trileptal] oxycodone [From Percocet] Allergy Anaphylaxis Verified 08/06/20 17:25 Penicillins Allergy Anaphylaxis Verified 08/06/20 17:25 Quinolones Allergy Dyspnea Verified 08/06/20 17:25 talc Allergy Dyspnea Verified 08/06/20 17:25 topiramate [From Topamax] Allergy Rash/Hives, Verified 08/06/20 17:25 seizures venom-honey bee Allergy Anaphylaxis Verified 08/06/20 17:25 [bee venom (honey bee)] venom-wasp [wasp venom] Allergy Anaphylaxis Verified 08/06/20 17:25 codeine AdvReac Vomiting Verified 08/06/20 17:25 diphenhydramine AdvReac Unknown Verified 08/06/20 17:25 [From Benadryl] divalproex sodium AdvReac Unknown Verified 08/06/20 17:25 [From Depakote] erythromycin base AdvReac Unknown Verified 08/06/20 17:25 paroxetine [From Paxil] AdvReac suicidal Verified 08/06/20 17:25 procaine [From Novocain] AdvReac Unknown Verified 08/06/20 17:25 Surgical - Exam Vital Signs Temp Pulse Resp BP Pulse Ox 98.2 F 118 H 18 140/68 98 08/06/20 15:43 08/06/20 15:43 08/06/20 15:43 08/06/20 15:43 08/06/20 15:43 - General well developed, well nourished, moderate distress - Respiratory normal respiratory effort - Abdomen Abdomen: soft, tender (Mild lower abdominal tenderness), no guarding, no rigid, no rebound - Psychiatric oriented to time, oriented to person, oriented to place, speech is normal, memory intact Results - Labs 08/07/20 05:48 08/07/20 05:48 Abnormal Lab Results - Last 24 Hours (Table) 08/06/20 08/06/20 08/06/20 Range/Units 16:50 16:50 16:50 RBC 3.67 L (3.80-5.40) m/uL Hgb 9.4 L (11.4-16.0) gm/dL Hct 28.6 L (34.0-46.0) % MCV 78.0 L (80.0-100.0) fL AST 52 H (14-36) U/L ALT 36 H (4-34) U/L Alkaline Phosphatase 158 H (38-126) U/L Urine Appearance Turbid H (Clear) Urine Protein 2+ H (Negative) Urine Blood Large H (Negative) Ur Leukocyte Esterase Moderate H (Negative) Urine RBC >182 H (0-5) /hpf Urine WBC 45 H (0-5) /hpf Urine Mucus Few H (None) /hpf Urine Yeast (Budding) Moderate H (None) /hpf Microbiology - Last 24 Hours (Table) 08/06/20 16:50 Urine Culture - Preliminary Urine,Voided Diabetes panel 08/06/20 Range/Units 16:50 Sodium 139 (137-145) mmol/L Potassium 4.3 (3.5-5.1) mmol/L Chloride 104 (98-107) mmol/L Carbon Dioxide 27 (22-30) mmol/L BUN 14 (7-17) mg/dL Creatinine 0.95 (0.52-1.04) mg/dL Glucose 98 (74-99) mg/dL Calcium 9.7 (8.4-10.2) mg/dL AST 52 H (14-36) U/L ALT 36 H (4-34) U/L Alkaline Phosphatase 158 H (38-126) U/L Total Protein 7.5 (6.3-8.2) g/dL Albumin 3.7 (3.5-5.0) g/dL Calcium panel 08/06/20 Range/Units 16:50 Calcium 9.7 (8.4-10.2) mg/dL Albumin 3.7 (3.5-5.0) g/dL Pituitary panel 08/06/20 Range/Units 16:50 Sodium 139 (137-145) mmol/L Potassium 4.3 (3.5-5.1) mmol/L Chloride 104 (98-107) mmol/L Carbon Dioxide 27 (22-30) mmol/L BUN 14 (7-17) mg/dL Creatinine 0.95 (0.52-1.04) mg/dL Glucose 98 (74-99) mg/dL Calcium 9.7 (8.4-10.2) mg/dL Adrenal panel 08/06/20 Range/Units 16:50 Sodium 139 (137-145) mmol/L Potassium 4.3 (3.5-5.1) mmol/L Chloride 104 (98-107) mmol/L Carbon Dioxide 27 (22-30) mmol/L BUN 14 (7-17) mg/dL Creatinine 0.95 (0.52-1.04) mg/dL Glucose 98 (74-99) mg/dL Calcium 9.7 (8.4-10.2) mg/dL Total Bilirubin 0.4 (0.2-1.3) mg/dL AST 52 H (14-36) U/L ALT 36 H (4-34) U/L Alkaline Phosphatase 158 H (38-126) U/L Total Protein 7.5 (6.3-8.2) g/dL Albumin 3.7 (3.5-5.0) g/dL - Imaging CT scan - abdomen: report reviewed, image reviewed Assessment and Plan (1) Hydronephrosis Current Visit: No Status: Acute Code(s): N13.30 - UNSPECIFIED HYDRONEPHROSIS SNOMED Code(s): 14723253 Plan: Bladder scan will be checked, and if she is found to be in urinary retention and a Acrbone catheter will be placed. Stool softeners a been ordered, along with laxatives. Antimuscarinics will not be ordered due to her constipation. A urine culture is pending, though a UTI is not suspected and she will be treated with antibiotics only if the culture is positive given her multiple drug allergies. She will be discharged home once her pain is better controlled. Time with Patient: Greater than 30
[2020-08-07] MEDS: SENNOSIDES 8.6 MG TAB PO SCH (19:42)
[2020-08-07] MEDS: SODIUM CHLORIDE 0.9% 1,000 ML IV SCH (20:13)
[2020-08-08] MEDS: HYDROmorphone 1 MG/ML 1 ML SYRINGE IVP PRN ×2 (02:26→05:49)
[2020-08-08] MEDS: IBUPROFEN 400 MG TAB PO PRN ×2 (04:51→09:50)
[2020-08-08] MEDS: HYDROcodone/APAP 7.5-325MG 1 EACH TAB PO PRN ×3 (09:00→21:39)
[2020-08-08] MEDS: polyethylene glycoL 3350 17 GM POWD.PACK PO SCH (09:00)
[2020-08-08] MEDS: PANTOPRAZOLE 40 MG/10 ML VIAL IV SCH (09:09)
[2020-08-08] MEDS: MORPHINE SULFATE ER 15 MG TABLET PO PRN ×2 (11:57→23:48)
--- NOTE | 2020-08-08 14:28 | P.PN ---
Progress Note - Text Progress Note Date: 08/08/20 The patient underwent Carbone catheter placement yesterday, as her postvoid residual was 500 mL. She experienced some relief, though she reports discomfort related to the catheter. The urine is faintly blood-tinged. The patient was reassured that this is of no concern. Her urine culture was negative. She is afebrile with stable vital signs. She is overall feeling better. Her ibuprofen dose will be increased to 800 mg 3 times a day. Her home meds have been resumed and I'm hopeful that she will feel well enough to be discharged home tomorrow.
[2020-08-08] MEDS: ONDANSETRON 4 MG/2 ML VIAL IVP PRN (19:20)
[2020-08-08] MEDS: SODIUM CHLORIDE 0.9% 1,000 ML IV SCH (20:09)
[2020-08-08] MEDS: SENNOSIDES 8.6 MG TAB PO SCH (21:40)
[2020-08-08] MEDS: IBUPROFEN 800 MG TAB PO PRN (22:43)
[2020-08-09] MEDS: HYDROcodone/APAP 7.5-325MG 1 EACH TAB PO PRN ×2 (04:28→10:28)
[2020-08-09 04:38] VITALS: BP 118/81; PULSE 68; RESP 20; TEMP 98.2
[2020-08-09] MEDS: polyethylene glycoL 3350 17 GM POWD.PACK PO SCH (07:44)
[2020-08-09] MEDS: PANTOPRAZOLE 40 MG/10 ML VIAL IV SCH (07:44)
[2020-08-09] MEDS: IBUPROFEN 800 MG TAB PO PRN (07:51)
--- NOTE | 2020-08-09 10:19 | P.DS ---
Providers Date of admission: 08/06/20 18:14 Expected date of discharge: 08/09/20 Attending physician: Miguel Kelly Primary care physician: Mariaelena Witt - Discharge Diagnosis(es) (1) Hydronephrosis Current Visit: No Status: Acute Hospital Course: The patient was admitted with uncontrolled pain, constipation, and difficulty voiding. She was initially treated with Dilaudid, but ultimately her home pain medication regimen (MS Contin, Motrin 800 mg, [place] for breakthrough pain) was resumed and this provided adequate pain relief. Her postvoid residual was 500 mL, so a Carbone catheter was placed. She initially was uncomfortable as a result of the catheter, but the discomfort improved throughout the hospitalization. Constipation persisted despite treatment with lactulose. She was otherwise afebrile and stable throughout the hospitalization. A urine culture was negative. Patient Condition at Discharge: Good Plan - Discharge Summary Discharge Rx Participant: Yes New Discharge Prescriptions: New bisacodyL [Dulcolax] 10 mg RECTAL DAILY PRN #12 supp PRN Reason: Constipation Lactulose 20 gm PO BID PRN #900 ml PRN Reason: Constipation No Action HYDROcodone/APAP 7.5-325MG [[place] 7.5-325] 1 tab PO Q4H PRN PRN Reason: Pain Morphine Sulfate ER [Ms Contin] 15 mg PO Q12HR PRN PRN Reason: Pain Sennosides [Senna] 8.6 mg PO BID PRN PRN Reason: Constipation Ibuprofen [Motrin Ib] 800 mg PO Q8H PRN PRN Reason: Pain Polyethylene Glycol 3350 [Miralax] 17 gm PO DAILY PRN PRN Reason: Constipation Discharge Medication List Ibuprofen [Motrin Ib] 800 mg PO Q8H PRN 06/22/20 [History] HYDROcodone/APAP 7.5-325MG [[place] 7.5-325] 1 tab PO Q4H PRN 07/28/20 [History] Polyethylene Glycol 3350 [Miralax] 17 gm PO DAILY PRN 07/28/20 [History] Morphine Sulfate ER [Ms Contin] 15 mg PO Q12HR PRN 08/06/20 [History] Sennosides [Senna] 8.6 mg PO BID PRN 08/06/20 [History] Lactulose 20 gm PO BID PRN #900 ml 08/09/20 [Rx] bisacodyL [Dulcolax] 10 mg RECTAL DAILY PRN #12 supp 08/09/20 [Rx] Follow up Appointment(s)/Referral(s): Mariaelena Witt MD [Primary Care Provider] - 1-2 days Activity/Diet/Wound Care/Special Instructions: Discharge home with Carbone catheter. Please provided patient with a urinary leg bag and instruct her on both the use of the leg bag and the overnight bag. In addition to the laxatives prescribed, patient should consider taking "power pudding" for prevention of constipation (recipes available online). Discharge Disposition: HOME SELF-CARE
[2020-08-09] MEDS: MORPHINE SULFATE ER 15 MG TABLET PO PRN (12:19)
== END 2020-08-09 13:44 | disposition home or self-care (01) ==
LOC: EC 15:41 → 6NMEDSUR 18:14 → 5NMEDONC 23:39
PROVIDERS: ADMIT Urology; ATTEND Urology
DX: N13.30 Unspecified hydronephrosis (principal); R30.0 Dysuria; R31.0 Gross hematuria; C53.9 Malignant neoplasm of cervix uteri, unspecified; N23 Unspecified renal colic; K59.00 Constipation, unspecified; Z20.822 Contact with and (suspected) exposure to COVID-19; K58.9 Irritable bowel syndrome, unspecified; J44.9 Chronic obstructive pulmonary disease, unspecified; K21.9 Gastro-esophageal reflux disease without esophagitis; G40.909 Epilepsy, unspecified, not intractable, without status epilepticus; F90.9 Attention-deficit hyperactivity disorder, unspecified type; F43.10 Post-traumatic stress disorder, unspecified; L40.9 Psoriasis, unspecified; L71.9 Rosacea, unspecified; Z79.1 Long term (current) use of non-steroidal anti-inflammatories (NSAID); Z79.899 Other long term (current) drug therapy; Z91.041 Radiographic dye allergy status; Z91.040 Latex allergy status; Z88.9 Allergy status to unspecified drugs, medicaments and biological substances; Z88.0 Allergy status to penicillin; Z91.030 Bee allergy status; Z91.013 Allergy to seafood; Z91.018 Allergy to other foods; Z91.048 Other nonmedicinal substance allergy status; Z88.7 Allergy status to serum and vaccine; Z88.5 Allergy status to narcotic agent; Z88.1 Allergy status to other antibiotic agents; Z88.6 Allergy status to analgesic agent; Z88.8 Allergy status to other drugs, medicaments and biological substances; Z96.0 Presence of urogenital implants; Z87.891 Personal history of nicotine dependence; Z16.24 Resistance to multiple antibiotics; Z86.73 Personal history of transient ischemic attack (TIA), and cerebral infarction without residual deficits; Z83.2 Family history of diseases of the blood and blood-forming organs and certain disorders involving the immune mechanism; Z83.49 Family history of other endocrine, nutritional and metabolic diseases; Z80.9 Family history of malignant neoplasm, unspecified
CPT/HCPCS: 96376 ×4; 96375; 96374; 99285; 36415; 80053 ×2; 82150; 83690; 85025 ×2; 81001; 87086; 87635; 74018; G0378 ×4; J2405 ×2; J1170 ×3; C9113 ×3

== ENCOUNTER 2020-08-12 23:28 | Emergency (ER) | payer OTHER ==
--- NOTE | 2020-08-13 00:24 | ED ---
General Adult HPI - General Chief complaint: Urogenital Stated complaint: Trouble urinating Time Seen by Provider: 08/12/20 23:56 Source: patient Mode of arrival: ambulatory Limitations: no limitations - History of Present Illness Initial comments: 45-year-old female with a past medical history of asthma, COPD, TIA, GERD presents to the emergency room for a chief complaint of inability to urinate. Patient had a Carbone catheter placed about a week ago secondary to urinary retention. Patient was admitted at that time and found to have bilateral hydro ureteronephrosis. Patient saw the urologist today at noon and had catheter removed. She states that she has not urinated since that time it has been 12 hours. Patient states she is now uncomfortable and is fullness in her pelvic area as of this.Patient has no other complaints at this time including shortness of breath, chest pain, abdominal pain, nausea or vomiting, headache, or visual changes. - Related Data Home Medications Medication Instructions Recorded Confirmed Ibuprofen [Motrin Ib] 800 mg PO Q8H PRN 06/22/20 08/06/20 HYDROcodone/APAP 7.5-325MG [[place] 1 tab PO Q4H PRN 07/28/20 08/06/20 7.5-325] Polyethylene Glycol 3350 [Miralax] 17 gm PO DAILY PRN 07/28/20 08/06/20 Morphine Sulfate ER [Ms Contin] 15 mg PO Q12HR PRN 08/06/20 08/06/20 Sennosides [Senna] 8.6 mg PO BID PRN 08/06/20 08/06/20 Previous Rx's Medication Instructions Recorded Lactulose 20 gm PO BID PRN #900 ml 08/09/20 bisacodyL [Dulcolax] 10 mg RECTAL DAILY PRN #12 supp 08/09/20 Allergies Allergy/AdvReac Type Severity Reaction Status Date / Time shellfish derived [Shellfish] Allergy Mild Swelling, Verified 08/12/20 23:55 nausea ciprofloxacin [From Cipro] Allergy Anaphylaxis Verified 08/12/20 23:55 coconut Allergy Anaphylaxis Verified 08/12/20 23:55 Fish Containing Products Allergy Anaphylaxis Verified 08/12/20 23:55 [Fish] fluticasone Allergy Anaphylaxis Verified 08/12/20 23:55 [From Flovent Diskus] honey Allergy Swelling Verified 08/12/20 23:55 Iodinated Contrast Media Allergy Swelling Verified 08/12/20 23:55 [Iodinated Contrast Media - IV Dye] iodine Allergy Swelling Verified 08/12/20 23:55 lamotrigine [From Lamictal] Allergy Anaphylaxis, Verified 08/12/20 23:55 seizures, hives latex Allergy Rash/Hives, Verified 08/12/20 23:55 dyspnea medroxyprogesterone Allergy Unknown Verified 08/12/20 23:55 [From Depo-Provera] naproxen Allergy Rash/Hives Verified 08/12/20 23:55 nitrofurantoin Allergy Rash/Hives Verified 08/12/20 23:55 [From Macrobid] oxcarbazepine Allergy Unknown Verified 08/12/20 23:55 [From Trileptal] oxycodone [From Percocet] Allergy Anaphylaxis Verified 08/12/20 23:55 Penicillins Allergy Anaphylaxis Verified 08/12/20 23:55 Quinolones Allergy Dyspnea Verified 08/12/20 23:55 talc Allergy Dyspnea Verified 08/12/20 23:55 topiramate [From Topamax] Allergy Rash/Hives, Verified 08/12/20 23:55 seizures venom-honey bee Allergy Anaphylaxis Verified 08/12/20 23:55 [bee venom (honey bee)] venom-wasp [wasp venom] Allergy Anaphylaxis Verified 08/12/20 23:55 codeine AdvReac Vomiting Verified 08/12/20 23:55 diphenhydramine AdvReac Unknown Verified 08/12/20 23:55 [From Benadryl] divalproex sodium AdvReac Unknown Verified 08/12/20 23:55 [From Depakote] erythromycin base AdvReac Unknown Verified 08/12/20 23:55 paroxetine [From Paxil] AdvReac suicidal Verified 08/12/20 23:55 procaine [From Novocain] AdvReac Unknown Verified 08/12/20 23:55 Review of Systems ROS Statement: Those systems with pertinent positive or pertinent negative responses have been documented in the HPI. ROS Other: All systems not noted in ROS Statement are negative. Past Medical History Past Medical History: Asthma, COPD, CVA/TIA, GERD/Reflux, Seizure Disorder, Skin Disorder Additional Past Medical History / Comment(s): TIA, brain bleed 2008. Hx seizure poss R/T Rx, 2013. 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 Fell 02/2020 w/ dislocation hip, bruised tailbone. Ezcema, psoriasis, rosacea. Recent constipation, c/o pain mid back/flank area. Varicose veins,kidney stents 06/29/20 History of Any Multi-Drug Resistant Organisms: MRSA Date of last positivie culture/infection: 2010 MDRO Source:: uterus Past Surgical History: Appendectomy, Section Additional Past Surgical History / Comment(s): 2 D&C, 2008 Past Anesthesia/Blood Transfusion Reactions: Previous Problems w/ Anesthesia, Motion Sickness Additional Past Anesthesia/Blood Transfusion Reaction / Comment(s): Reaction 2004 w/ D&C heart rate ecelerated, blood pressure bottomed out, uncontrolled; with C-S spinal block paralyzed lung, stopped breathing. Novocain caused leg tremors w/ dental work. Requesting Ativan in pre-op D/T anxiousness. Past Psychological History: ADD/ADHD, Anxiety, PTSD Smoking Status: Former smoker Past Alcohol Use History: None Reported Past Drug Use History: None Reported - Past Family History Father Family Medical History: Cancer, Deep Vein Thrombosis (DVT) Additional Family Medical History / Comment(s): thyroid goiter, poss cancer General Exam Limitations: no limitations General appearance: alert, in no apparent distress Head exam: Present: atraumatic, normocephalic, normal inspection Eye exam: Present: normal appearance, PERRL, EOMI. Absent: scleral icterus, conjunctival injection, periorbital swelling ENT exam: Present: normal exam, mucous membranes moist Neck exam: Present: normal inspection. Absent: tenderness, meningismus, lymphadenopathy Respiratory exam: Present: normal lung sounds bilaterally. Absent: respiratory distress, wheezes, rales, rhonchi, stridor Cardiovascular Exam: Present: regular rate, normal rhythm, normal heart sounds. Absent: systolic murmur, diastolic murmur, rubs, gallop, clicks GI/Abdominal exam: Present: soft, tenderness (Mildly tender suprapubic region), normal bowel sounds. Absent: distended, guarding, rebound, rigid Course Vital Signs 08/12/20 23:37 Temperature 98.3 F Pulse Rate 107 H Respiratory 20 Rate Blood Pressure 139/80 O2 Sat by Pulse 97 Oximetry Medical Decision Making - Medical Decision Making The catheter was placed as patient cannot urinate for 12 hours. Urinalysis shows greater than 182 red and white cells. Patient does have stents placed. However patient cannot be put on for "months given her anaphylactic ALLERGY to Cipro as well as penicillins. We will start her on Bactrim. She will follow up closely with urology. She'll return here for any worsening symptoms. - Lab Data Lab Results 08/13/20 Range/Units 01:06 Urine Color Dark Red Urine Appearance Turbid H (Clear) Urine pH 7.0 (5.0-8.0) Ur Specific [place] 1.024 (1.001-1.035) Urine Protein 2+ H (Negative) Urine Glucose (UA) Negative (Negative) Urine Ketones Negative (Negative) Urine Blood Large H (Negative) Urine Nitrite Negative (Negative) Urine Bilirubin Negative (Negative) Urine Urobilinogen <2.0 (<2.0) mg/dL Ur Leukocyte Esterase Moderate H (Negative) Urine RBC >182 H (0-5) /hpf Urine WBC >182 H (0-5) /hpf Urine Mucus Moderate H (None) /hpf Disposition Clinical Impression: UTI (urinary tract infection), Urinary retention Disposition: HOME SELF-CARE Condition: Good Instructions (If sedation given, give patient instructions): Urinary Tract Infection in Women (ED), Acute Urinary Retention in Women (ED) Additional Instructions: Please take antibiotic as directed. Please follow-up with urology tomorrow. Return to the emergency room for any worsening symptoms. Is patient prescribed a controlled substance at d/c from ED?: No Referrals: Mariaelena Witt MD [Primary Care Provider] - 1-2 days Time of Disposition: 01:41
[2020-08-13 01:32] LABS: Appearance,Urine Turbid (Clear); Bilirubin,Urine Negative (Negative); Blood,Urine Large (Negative); Color,Urine Dark Red; Glucose,Urine (UA) Negative (Negative); Ketones,Urine Negative (Negative); Leukocyte Esterase,Urine Moderate (Negative); Mucus,Urine Moderate /hpf; Nitrite,Urine Negative (Negative); Protein,Urine 2+ (Negative); RBC,Urine >182 /hpf (0-5); Specific Gravity,Urine 1.024 (1.001-1.035); Urobilinogen,Urine <2.0 mg/dL (<2.0); WBC,Urine >182 /hpf (0-5)
[2020-08-13] MEDS ORDERED: SULFAMETH-TMP DS STARTER PACK 2 TAB BTL PO STA (01:39)
[2020-08-13 02:03] VITALS: BP 110/68; PULSE 98; RESP 18; TEMP 97.8
== END 2020-08-13 02:16 | disposition home or self-care (01) ==
LOC: EC 23:28
DX: N39.0 Urinary tract infection, site not specified (principal); R33.9 Retention of urine, unspecified; J44.9 Chronic obstructive pulmonary disease, unspecified; K21.9 Gastro-esophageal reflux disease without esophagitis; G40.909 Epilepsy, unspecified, not intractable, without status epilepticus; F41.9 Anxiety disorder, unspecified; F90.9 Attention-deficit hyperactivity disorder, unspecified type; Z86.73 Personal history of transient ischemic attack (TIA), and cerebral infarction without residual deficits; Z87.891 Personal history of nicotine dependence; Z88.0 Allergy status to penicillin
CPT/HCPCS: 81001; 87086; 99283

== ENCOUNTER 2020-08-14 16:11 | Inpatient (IN) | payer OTHER ==
[2020-08-14] MEDS ORDERED: ONDANSETRON 4 MG/2 ML VIAL IVP STA (17:55)
[2020-08-14] MEDS ORDERED: HYDROmorphone 1 MG/ML 1 ML SYRINGE IVP STA (17:55)
[2020-08-14] MEDS ORDERED: SODIUM CHLORIDE 0.9% 1,000 ML IV STA (17:55)
[2020-08-14] MEDS ORDERED: ACETAMINOPHEN TAB 325 MG TAB PO STA (17:57)
--- NOTE | 2020-08-14 19:25 | XR ---
EXAMINATION TYPE: XR KUB DATE OF EXAM: 08/14/2020 COMPARISON: 08/06/2020 HISTORY: 08/06/2020 TECHNIQUE: 2 views upright FINDINGS: There are bilateral double-J ureteral stents. There is no sign of intestinal obstruction or pneumoperitoneum. Fecal pattern is normal. There is no evidence of a mass. There are no pathologic c alcifications over the kidneys. Lung bases are clear. IMPRESSION: Nonacute abdomen. The right ureteral stent appears more inferior than last exam.
--- NOTE | 2020-08-14 19:28 | ED ---
Abdominal Pain HPI - General Chief Complaint: Abdominal Pain Stated Complaint: fever, vomiting Time Seen by Provider: 08/14/20 17:49 Source: patient, RN notes reviewed Mode of arrival: wheelchair Limitations: no limitations - History of Present Illness Initial Comments: Patient is a 45-year-old female that presents to emergency with abdominal pain. She was recently diagnosed with cervical cancer. She notes that she self catheterizes for urinary retention. She presents emergency with abdominal pain nausea vomiting. She was in bed in pain and was unable to give accurate answers to examination questions. Patient had bilateral ureteral stents placed on 06/25/2020. She denied any chest pain shortness of breath headache fatigue hematochezia melena. - Related Data Home Medications Medication Instructions Recorded Confirmed Morphine Sulfate ER [Ms Contin] 15 mg PO Q12HR PRN 08/06/20 08/14/20 Sennosides [Senna] 8.6 mg PO BID PRN 08/06/20 08/14/20 HYDROcodone/APAP 10-325MG [[place] 1 tab PO Q4HR PRN 08/14/20 08/14/20 10-325] Lidocaine 5% Oint [Xylocaine 5% 1 applic TOPICAL DAILY PRN 08/14/20 08/14/20 Oint] Previous Rx's Medication Instructions Recorded Lactulose 20 gm PO BID PRN #900 ml 08/09/20 bisacodyL [Dulcolax] 10 mg RECTAL DAILY PRN #12 supp 08/09/20 Sulfamethox-Tmp 800-160Mg [Bactrim 1 tab PO Q12HR #20 tab 08/13/20 DS 800-160 mg] Allergies Allergy/AdvReac Type Severity Reaction Status Date / Time shellfish derived [Shellfish] Allergy Mild Swelling, Verified 08/14/20 19:18 nausea ciprofloxacin [From Cipro] Allergy Anaphylaxis Verified 08/14/20 19:18 coconut Allergy Anaphylaxis Verified 08/14/20 19:18 Fish Containing Products Allergy Anaphylaxis Verified 08/14/20 19:18 [Fish] fluticasone Allergy Anaphylaxis Verified 08/14/20 19:18 [From Flovent Diskus] honey Allergy Swelling Verified 08/14/20 19:18 Iodinated Contrast Media Allergy Swelling Verified 08/14/20 19:18 [Iodinated Contrast Media - IV Dye] iodine Allergy Swelling Verified 08/14/20 19:18 lamotrigine [From Lamictal] Allergy Anaphylaxis, Verified 08/14/20 19:18 seizures, hives latex Allergy Rash/Hives, Verified 08/14/20 19:18 dyspnea medroxyprogesterone Allergy Unknown Verified 08/14/20 19:18 [From Depo-Provera] naproxen Allergy Rash/Hives Verified 08/14/20 19:18 nitrofurantoin Allergy Rash/Hives Verified 08/14/20 19:18 [From Macrobid] oxcarbazepine Allergy Unknown Verified 08/14/20 19:18 [From Trileptal] oxycodone [From Percocet] Allergy Anaphylaxis Verified 08/14/20 19:18 Penicillins Allergy Anaphylaxis Verified 08/14/20 19:18 Quinolones Allergy Dyspnea Verified 08/14/20 19:18 talc Allergy Dyspnea Verified 08/14/20 19:18 topiramate [From Topamax] Allergy Rash/Hives, Verified 08/14/20 19:18 seizures venom-honey bee Allergy Anaphylaxis Verified 08/14/20 19:18 [bee venom (honey bee)] venom-wasp [wasp venom] Allergy Anaphylaxis Verified 08/14/20 19:18 codeine AdvReac Vomiting Verified 08/14/20 19:18 diphenhydramine AdvReac Unknown Verified 08/14/20 19:18 [From Benadryl] divalproex sodium AdvReac Unknown Verified 08/14/20 19:18 [From Depakote] erythromycin base AdvReac Unknown Verified 08/14/20 19:18 paroxetine [From Paxil] AdvReac suicidal Verified 08/14/20 19:18 procaine [From Novocain] AdvReac Unknown Verified 08/14/20 19:18 Review of Systems ROS Statement: Those systems with pertinent positive or pertinent negative responses have been documented in the HPI. ROS Other: All systems not noted in ROS Statement are negative. Past Medical History Past Medical History: Asthma, COPD, CVA/TIA, GERD/Reflux, Seizure Disorder, Skin Disorder Additional Past Medical History / Comment(s): TIA, brain bleed 2008. Hx seizure poss R/T Rx, 2012. 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 Fell 02/2020 w/ dislocation hip, bruised tailbone. Ezcema, psoriasis, rosacea. Recent constipation, c/o pain mid back/flank area. Varicose veins,kidney stents 06/29/20 History of Any Multi-Drug Resistant Organisms: MRSA Date of last positivie culture/infection: 2010 MDRO Source:: uterus Past Surgical History: Appendectomy, Section Additional Past Surgical History / Comment(s): 2 D&C, 2008 Past Anesthesia/Blood Transfusion Reactions: Previous Problems w/ Anesthesia, Motion Sickness Additional Past Anesthesia/Blood Transfusion Reaction / Comment(s): Reaction 2004 w/ D&C heart rate ecelerated, blood pressure bottomed out, uncontrolled; with C-S spinal block paralyzed lung, stopped breathing. Novocain caused leg tremors w/ dental work. Requesting Ativan in pre-op D/T anxiousness. Past Psychological History: ADD/ADHD, Anxiety, PTSD Smoking Status: Former smoker Past Alcohol Use History: None Reported Past Drug Use History: None Reported - Past Family History Father Family Medical History: Cancer, Deep Vein Thrombosis (DVT) Additional Family Medical History / Comment(s): thyroid goiter, poss cancer General Exam Limitations: no limitations General appearance: alert, in distress Head exam: Present: atraumatic, normocephalic, normal inspection Eye exam: Present: normal appearance, PERRL, EOMI. Absent: scleral icterus, conjunctival injection, periorbital swelling Neck exam: Present: normal inspection. Absent: tenderness, meningismus, lymphadenopathy Respiratory exam: Present: normal lung sounds bilaterally. Absent: respiratory distress, wheezes, rales, rhonchi, stridor Cardiovascular Exam: Present: regular rate, normal rhythm, normal heart sounds. Absent: systolic murmur, diastolic murmur, rubs, gallop, clicks GI/Abdominal exam: Present: soft, tenderness (Generalized throughout), normal bowel sounds. Absent: distended, guarding, rebound, rigid Extremities exam: Present: normal inspection, full ROM, normal capillary refill. Absent: tenderness, pedal edema, joint swelling, calf tenderness Neurological exam: Present: alert, oriented X3, CN II-XII intact Psychiatric exam: Present: normal affect, normal mood Skin exam: Present: warm, dry, intact, normal color. Absent: rash Course Vital Signs 08/14/20 08/14/20 08/14/20 16:43 19:56 20:06 Temperature 100.2 F H Pulse Rate 128 H Respiratory 18 Rate Blood Pressure 105/64 112/76 O2 Sat by Pulse 95 86 L Oximetry 08/14/20 20:08 Temperature Pulse Rate Respiratory Rate Blood Pressure O2 Sat by Pulse 92 L Oximetry Medical Decision Making - Medical Decision Making 45-year-old female complaining of abdominal pain. She was recently seen on 08/13/2020. Labs, 650 mg of Tylenol, 1 mg of Dilaudid, 4 mg Zofran, 1 L normal saline ordered. Labs: White blood cells 15.1, urinalysis: Bloody, red blood cells greater than 182, white blood cells greater than 182. Cefepime and vancomycin ordered. 1 mg Ativan ordered for patient's anxiousness. Case discussed with Dr. Phan, patient will be admitted to hospital. Dr. Moseley consult at all except the admit with infectious disease on consult. - Lab Data Result diagrams: 08/14/20 19:39 08/14/20 19:39 Lab Results 08/14/20 08/14/20 08/14/20 Range/Units 19:39 19:39 19:39 WBC 15.1 H (3.8-10.6) k/uL RBC 3.93 (3.80-5.40) m/uL Hgb 9.5 L (11.4-16.0) gm/dL Hct 30.6 L (34.0-46.0) % MCV 77.8 L (80.0-100.0) fL MCH 24.2 L (25.0-35.0) pg MCHC 31.0 (31.0-37.0) g/dL RDW 14.1 (11.5-15.5) % Plt Count 314 (150-450) k/uL MPV 7.4 Neutrophils % 90 % Lymphocytes % 5 % Monocytes % 4 % Eosinophils % 0 % Basophils % 0 % Neutrophils # 13.7 H (1.3-7.7) k/uL Lymphocytes # 0.7 L (1.0-4.8) k/uL Monocytes # 0.5 (0-1.0) k/uL Eosinophils # 0.0 (0-0.7) k/uL Basophils # 0.1 (0-0.2) k/uL Hypochromasia Moderate Sodium (137-145) mmol/L Potassium (3.5-5.1) mmol/L Chloride (98-107) mmol/L Carbon Dioxide (22-30) mmol/L Anion Gap mmol/L BUN (7-17) mg/dL Creatinine (0.52-1.04) mg/dL Est GFR (CKD-EPI)AfAm (>60 ml/min/1.73 sqM) Est GFR (CKD-EPI)NonAf (>60 ml/min/1.73 sqM) Glucose (74-99) mg/dL Plasma Lactic Acid Cesar (0.7-2.0) mmol/L Calcium (8.4-10.2) mg/dL Total Bilirubin (0.2-1.3) mg/dL AST (14-36) U/L ALT (4-34) U/L Alkaline Phosphatase (38-126) U/L Total Protein (6.3-8.2) g/dL Albumin (3.5-5.0) g/dL Amylase (30-110) U/L Lipase (23-300) U/L Urine Color Red Urine Appearance Bloody H (Clear) Urine RBC >182 H (0-5) /hpf Urine WBC >182 H (0-5) /hpf Urine HCG, Qual Not Detected (Not Detectd) 08/14/20 08/14/20 Range/Units 19:39 19:39 WBC (3.8-10.6) k/uL RBC (3.80-5.40) m/uL Hgb (11.4-16.0) gm/dL Hct (34.0-46.0) % MCV (80.0-100.0) fL MCH (25.0-35.0) pg MCHC (31.0-37.0) g/dL RDW (11.5-15.5) % Plt Count (150-450) k/uL MPV Neutrophils % % Lymphocytes % % Monocytes % % Eosinophils % % Basophils % % Neutrophils # (1.3-7.7) k/uL Lymphocytes # (1.0-4.8) k/uL Monocytes # (0-1.0) k/uL Eosinophils # (0-0.7) k/uL Basophils # (0-0.2) k/uL Hypochromasia Sodium 135 L (137-145) mmol/L Potassium 4.8 (3.5-5.1) mmol/L Chloride 103 (98-107) mmol/L Carbon Dioxide 22 (22-30) mmol/L Anion Gap 10 mmol/L BUN 20 H (7-17) mg/dL Creatinine 1.84 H (0.52-1.04) mg/dL Est GFR (CKD-EPI)AfAm 38 (>60 ml/min/1.73 sqM) Est GFR (CKD-EPI)NonAf 33 (>60 ml/min/1.73 sqM) Glucose 106 H (74-99) mg/dL Plasma Lactic Acid Cesar 1.7 (0.7-2.0) mmol/L Calcium 9.3 (8.4-10.2) mg/dL Total Bilirubin 0.6 (0.2-1.3) mg/dL AST 59 H (14-36) U/L ALT 38 H (4-34) U/L Alkaline Phosphatase 287 H (38-126) U/L Total Protein 7.7 (6.3-8.2) g/dL Albumin 3.7 (3.5-5.0) g/dL Amylase 32 (30-110) U/L Lipase 30 (23-300) U/L Urine Color Urine Appearance (Clear) Urine RBC (0-5) /hpf Urine WBC (0-5) /hpf Urine HCG, Qual (Not Detectd) - Radiology Data Radiology results: report reviewed, image reviewed KUB: Nonacute abdomen. The right ureteral stent appears more inferior than last exam. CT of the abdomen and pelvis: There is some minimal reticular nodular infiltrate at the lung bases. Extensive inflammatory changes in the pelvis with perirectal density measuring up to almost 3 cm in thickness. This is worse than last exam. Consider both inflammatory disease and malignancy. There is bilateral moderate hydronephrosis which appears to same or slightly worse than last exam. Stent malfunction is possible. There is increased reticular nodular interstitial infiltrate the lung bases compared to old exam. Disposition Clinical Impression: Hydronephrosis, Abdominal pain Disposition: ADMITTED IP TO THIS [facility] Condition: Stable Is patient prescribed a controlled substance at d/c from ED?: No Referrals: Mariaelena Witt MD [Primary Care Provider] - 1-2 days Time of Disposition: 22:08
[2020-08-14 20:00] LABS: RBC,Urine >182 /hpf (0-5); WBC,Urine >182 /hpf (0-5)
[2020-08-14 20:01] LABS: Basophils # (A) 0.1 k/uL (0-0.2); Basophils % (A) 0 %; Eosinophils % (A) 0 %; HCT 30.6 % (34.0-46.0); HGB 9.5 gm/dL (11.4-16.0); Hypochromasia Moderate; Lymphocytes # (A) 0.7 k/uL (1.0-4.8); Lymphocytes % (A) 5 %; MCH 24.2 pg (25.0-35.0); MCV 77.8 fL (80.0-100.0); Mean Platelet Volume 7.4; Monocytes # (A) 0.5 k/uL (0-1.0); Monocytes % (A) 4 %; Neutrophils # (A) 13.7 k/uL (1.3-7.7); Neutrophils % (A) 90 %; Platelet Count 314 k/uL (150-450); RBC 3.93 m/uL (3.80-5.40); RDW 14.1 % (11.5-15.5); WBC 15.1 k/uL (3.8-10.6)
[2020-08-14 20:11] LABS: Appearance,Urine Bloody (Clear); Color,Urine Red
[2020-08-14 20:13] LABS: Albumin 3.7 g/dL (3.5-5.0); Calcium 9.3 mg/dL (8.4-10.2); Potassium 4.8 mmol/L (3.5-5.1); Total Bilirubin 0.6 mg/dL (0.2-1.3); Total Protein 7.7 g/dL (6.3-8.2)
--- NOTE | 2020-08-14 21:44 | CT ---
EXAMINATION TYPE: CT abdomen pelvis wo con DATE OF EXAM: 08/14/2020 COMPARISON: HISTORY: c/o back pain, nausea, vomiting, fever CT DLP: 824.7 mGycm Automated exposure control for dose reduction was used. Images obtained from the diaphragm to the floor the pelvis with no contrast. There is some minimal reticular nodular infiltrate at the lung bases. There is no pleural effusion. T here is no pericardial effusion. Heart size is normal. Liver and spleen are intact. Spleen is large and measures almost 15 cm. There is no pancreatic mass. Gallbladder appears normal. The bile ducts are not dilated. The stomach is intact. There is bilateral hydronephrosis. There is no adrenal mass. There are bilateral ureteral stents. The stents appear in good position. Bladder distends smoothly. There is no inguinal hernia. Uterus is an teverted. There is extensive presacral increased density. There is increased density around the rectu m and fat stranding. There is no evidence of a bowel obstruction. There is no mesenteric edema. There is no ascites or benigno e air. There are a few large bowel diverticula. Appendix is not seen. There is no sign of thickened a ppendix. The lumbar vertebra have normal alignment. There is no compression fracture. Bony pelvis is intact. H ip joints are intact. IMPRESSION: Extensive inflammatory changes in the pelvis with perirectal density measuring up to almost 3 cm in t hickness. This is worse than last exam. Consider both inflammatory disease and malignancy. There is b ilateral moderate hydronephrosis which appears the same or slightly worse than last exam. Stent malfu nction is possible. There is increased reticular nodular interstitial infiltrate at the lung bases compared to old exam.
[2020-08-14] MEDS ORDERED: LORazepam 2 MG/ML INJ IV STA (21:48)
[2020-08-14] MEDS: CEFEPIME 2 GM in SODIUM CHLORIDE 0.9% 100 ML IVPB SCH (21:54)
[2020-08-14] MEDS ORDERED: VANCOMYCIN IV PER PHARMACY 1 EACH MISC MISCELLANE PRN (22:01)
[2020-08-14] MEDS ORDERED: NALOXONE 0.4 MG/ML 1 ML VIAL IV PRN (22:07)
[2020-08-14] MEDS ORDERED: VANCOMYCIN 1,500 MG in SODIUM CHLORIDE 0.9% 250 ML IVPB ONE (23:00)
[2020-08-15 01:33] LABS: Prothrombin Time 10.7 sec (9.0-12.0)
[2020-08-15 01:43] LABS: Partial Thromboplastin Time 17.7 sec (22.0-30.0)
[2020-08-15] MEDS: HYDROmorphone 1 MG/ML 1 ML SYRINGE IVP PRN ×5 (02:43→14:44)
[2020-08-15] MEDS: SODIUM CHLORIDE 0.9% 1,000 ML IV SCH ×3 (03:13→20:08)
[2020-08-15] MEDS: FAMOTIDINE 20 MG/2 ML VIAL IV SCH ×2 (07:39→20:08)
[2020-08-15] MEDS: HEPARIN SODIUM,PORCINE/PF 5,000 UNIT/0.5 ML SYRINGE SQ SCH ×2 (07:39→20:08)
[2020-08-15] MEDS: CEFEPIME 2 GM in SODIUM CHLORIDE 0.9% 100 ML IVPB SCH ×2 (08:34→21:00)
--- NOTE | 2020-08-15 10:43 | P.GSCN ---
History of Present Illness Consult date: 08/15/20 Reason for Consult: Proctitis History of present illness: 45-year-old female came to the hospital complaining of abdominal pain nausea and vomiting. Patient has new diagnosis of cervical cancer and ureteral obstruction. Patient has been self cathing with some difficulty apparently. Carbone catheter currently in place with hematuria noted. Some significant white blood cells and urine present as well. She has a leukocytosis of 15.1. Patient is slightly lethargic but able to provide answers to questions. He has had some constipation recently. CAT scan abdomen and pelvis performed. Thickening of the rectal wall and presacral tissues noted. Unclear if patient has received any treatment thus far for her cervical cancer. Review of Systems ROS unobtainable: due to mental status Past Medical History Past Medical History: Asthma, COPD, CVA/TIA, GERD/Reflux, Seizure Disorder, Skin Disorder Additional Past Medical History / Comment(s): TIA, brain bleed 2008. Hx seizure poss R/T Rx, 2012. 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 Fell 02/2020 w/ dislocation hip, bruised tailbone. Ezcema, psoriasis, rosacea. Recent constipation, c/o pain mid back/flank area. Varicose veins,kidney stents 06/29/20 History of Any Multi-Drug Resistant Organisms: MRSA Year Discovered:: 2010 MDRO Source:: uterus Past Surgical History: Appendectomy, Section Additional Past Surgical History / Comment(s): 2 D&C, 2008 Past Anesthesia/Blood Transfusion Reactions: Previous Problems w/ Anesthesia, Motion Sickness Additional Past Anesthesia/Blood Transfusion Reaction / Comm: Reaction 2004 w/ D&C heart rate ecelerated, blood pressure bottomed out, uncontrolled; with C-S spinal block paralyzed lung, stopped breathing. Novocain caused leg tremors w/ dental work. Requesting Ativan in pre-op D/T anxiousness. Past Psychological History: ADD/ADHD, Anxiety, PTSD Additional Psychological History / Comment(s): states that PTSD was treated Smoking Status: Never smoker Past Alcohol Use History: None Reported Additional Past Alcohol Use History / Comment(s): smoked 2 cartons of cigarettes in 1 day 2000 Past Drug Use History: None Reported - Past Family History Father Family Medical History: Cancer, Deep Vein Thrombosis (DVT) Additional Family Medical History / Comment(s): thyroid goiter, poss cancer Medications and Allergies Home Medications Medication Instructions Recorded Confirmed Type Morphine Sulfate ER [Ms Contin] 15 mg PO Q12HR PRN 08/06/20 08/14/20 History Sennosides [Senna] 8.6 mg PO BID PRN 08/06/20 08/14/20 History Lactulose 20 gm PO BID PRN #900 ml 08/09/20 08/14/20 Rx bisacodyL [Dulcolax] 10 mg RECTAL DAILY PRN #12 supp 08/09/20 08/14/20 Rx Sulfamethox-Tmp 800-160Mg [Bactrim 1 tab PO Q12HR #20 tab 08/13/20 08/14/20 Rx DS 800-160 mg] HYDROcodone/APAP 10-325MG [[place] 1 tab PO Q4HR PRN 08/14/20 08/14/20 History 10-325] Lidocaine 5% Oint [Xylocaine 5% 1 applic TOPICAL DAILY PRN 08/14/20 08/14/20 History Oint] Allergies Allergy/AdvReac Type Severity Reaction Status Date / Time shellfish derived [Shellfish] Allergy Mild Swelling, Verified 08/14/20 19:18 nausea ciprofloxacin [From Cipro] Allergy Anaphylaxis Verified 08/14/20 19:18 coconut Allergy Anaphylaxis Verified 08/14/20 19:18 Fish Containing Products Allergy Anaphylaxis Verified 08/14/20 19:18 [Fish] fluticasone Allergy Anaphylaxis Verified 08/14/20 19:18 [From Flovent Diskus] honey Allergy Swelling Verified 08/14/20 19:18 Iodinated Contrast Media Allergy Swelling Verified 08/14/20 19:18 [Iodinated Contrast Media - IV Dye] iodine Allergy Swelling Verified 08/14/20 19:18 lamotrigine [From Lamictal] Allergy Anaphylaxis, Verified 08/14/20 19:18 seizures, hives latex Allergy Rash/Hives, Verified 08/14/20 19:18 dyspnea medroxyprogesterone Allergy Unknown Verified 08/14/20 19:18 [From Depo-Provera] naproxen Allergy Rash/Hives Verified 08/14/20 19:18 nitrofurantoin Allergy Rash/Hives Verified 08/14/20 19:18 [From Macrobid] oxcarbazepine Allergy Unknown Verified 08/14/20 19:18 [From Trileptal] oxycodone [From Percocet] Allergy Anaphylaxis Verified 08/14/20 19:18 Penicillins Allergy Anaphylaxis Verified 08/14/20 19:18 Quinolones Allergy Dyspnea Verified 08/14/20 19:18 talc Allergy Dyspnea Verified 08/14/20 19:18 topiramate [From Topamax] Allergy Rash/Hives, Verified 08/14/20 19:18 seizures venom-honey bee Allergy Anaphylaxis Verified 08/14/20 19:18 [bee venom (honey bee)] venom-wasp [wasp venom] Allergy Anaphylaxis Verified 08/14/20 19:18 codeine AdvReac Vomiting Verified 08/14/20 19:18 diphenhydramine AdvReac Unknown Verified 08/14/20 19:18 [From Benadryl] divalproex sodium AdvReac Unknown Verified 08/14/20 19:18 [From Depakote] erythromycin base AdvReac Unknown Verified 08/14/20 19:18 paroxetine [From Paxil] AdvReac suicidal Verified 08/14/20 19:18 procaine [From Novocain] AdvReac Unknown Verified 08/14/20 19:18 Surgical - Exam Vital Signs Temp Pulse Resp BP Pulse Ox 100.2 F H 128 H 18 105/64 95 08/14/20 16:43 08/14/20 16:43 08/14/20 16:43 08/14/20 16:43 08/14/20 16:43 Physical exam: General: Well-developed, well-nourished HEENT: Normocephalic, sclerae nonicteric Abdomen: Mild lower abdominal tenderness, no rebound or guarding Extremities: No edema Neuro: Somewhat lethargic answers questions appropriately Results - Labs 08/14/20 19:39 08/14/20 19:39 Abnormal Lab Results - Last 24 Hours (Table) 08/14/20 08/14/20 08/14/20 Range/Units 19:39 19:39 19:39 WBC 15.1 H (3.8-10.6) k/uL Hgb 9.5 L (11.4-16.0) gm/dL Hct 30.6 L (34.0-46.0) % MCV 77.8 L (80.0-100.0) fL MCH 24.2 L (25.0-35.0) pg Neutrophils # 13.7 H (1.3-7.7) k/uL Lymphocytes # 0.7 L (1.0-4.8) k/uL APTT (22.0-30.0) sec Sodium 135 L (137-145) mmol/L BUN 20 H (7-17) mg/dL Creatinine 1.84 H (0.52-1.04) mg/dL Glucose 106 H (74-99) mg/dL AST 59 H (14-36) U/L ALT 38 H (4-34) U/L Alkaline Phosphatase 287 H (38-126) U/L Urine Appearance Bloody H (Clear) Urine RBC >182 H (0-5) /hpf Urine WBC >182 H (0-5) /hpf 08/15/20 Range/Units 01:12 WBC (3.8-10.6) k/uL Hgb (11.4-16.0) gm/dL Hct (34.0-46.0) % MCV (80.0-100.0) fL MCH (25.0-35.0) pg Neutrophils # (1.3-7.7) k/uL Lymphocytes # (1.0-4.8) k/uL APTT 17.7 L (22.0-30.0) sec Sodium (137-145) mmol/L BUN (7-17) mg/dL Creatinine (0.52-1.04) mg/dL Glucose (74-99) mg/dL AST (14-36) U/L ALT (4-34) U/L Alkaline Phosphatase (38-126) U/L Urine Appearance (Clear) Urine RBC (0-5) /hpf Urine WBC (0-5) /hpf Microbiology - Last 24 Hours (Table) 08/14/20 19:39 Urine Culture - Preliminary Urine,Clean Catch Diabetes panel 08/14/20 Range/Units 19:39 Sodium 135 L (137-145) mmol/L Potassium 4.8 (3.5-5.1) mmol/L Chloride 103 (98-107) mmol/L Carbon Dioxide 22 (22-30) mmol/L BUN 20 H (7-17) mg/dL Creatinine 1.84 H (0.52-1.04) mg/dL Glucose 106 H (74-99) mg/dL Calcium 9.3 (8.4-10.2) mg/dL AST 59 H (14-36) U/L ALT 38 H (4-34) U/L Alkaline Phosphatase 287 H (38-126) U/L Total Protein 7.7 (6.3-8.2) g/dL Albumin 3.7 (3.5-5.0) g/dL Calcium panel 08/14/20 Range/Units 19:39 Calcium 9.3 (8.4-10.2) mg/dL Albumin 3.7 (3.5-5.0) g/dL Pituitary panel 08/14/20 Range/Units 19:39 Sodium 135 L (137-145) mmol/L Potassium 4.8 (3.5-5.1) mmol/L Chloride 103 (98-107) mmol/L Carbon Dioxide 22 (22-30) mmol/L BUN 20 H (7-17) mg/dL Creatinine 1.84 H (0.52-1.04) mg/dL Glucose 106 H (74-99) mg/dL Calcium 9.3 (8.4-10.2) mg/dL Adrenal panel 08/14/20 Range/Units 19:39 Sodium 135 L (137-145) mmol/L Potassium 4.8 (3.5-5.1) mmol/L Chloride 103 (98-107) mmol/L Carbon Dioxide 22 (22-30) mmol/L BUN 20 H (7-17) mg/dL Creatinine 1.84 H (0.52-1.04) mg/dL Glucose 106 H (74-99) mg/dL Calcium 9.3 (8.4-10.2) mg/dL Total Bilirubin 0.6 (0.2-1.3) mg/dL AST 59 H (14-36) U/L ALT 38 H (4-34) U/L Alkaline Phosphatase 287 H (38-126) U/L Total Protein 7.7 (6.3-8.2) g/dL Albumin 3.7 (3.5-5.0) g/dL Assessment and Plan (1) Proctitis Narrative/Plan: Patient with inflammatory changes in the pelvis on CAT scan. Unclear whether this is related to her known diagnosis of cervical cancer and/or treatment for that. Patient may require colonoscopy. Agree with plans for urology consult. We'll need to define where the patient is at in her cervical cancer treatment plan. Continue antibiotics for possible urosepsis. Will follow. Current Visit: Yes Status: Acute Code(s): K62.89 - OTHER SPECIFIED DISEASES OF ANUS AND RECTUM SNOMED Code(s): 7835386
[2020-08-15] MEDS ORDERED: MORPHINE SULFATE ER 15 MG TABLET PO PRN (11:05)
[2020-08-15] MEDS: LACTULOSE 20 GM/30 ML CUP PO PRN (11:27)
[2020-08-15 11:30] LABS: Basophils # (A) 0.04 X 10*3/uL (0.00-0.10); Basophils % (A) 0.3 %; Eosinophils # (A) 0.03 X 10*3/uL (0.04-0.35); Eosinophils % (A) 0.2 %; HCT 24.8 % (37.2-46.3); HGB 7.3 g/dL (12.0-15.0); Lymphocytes # (A) 0.88 X 10*3/uL (0.90-5.00); Lymphocytes % (A) 7.1 %; MCH 24.3 pg (27.0-32.0); MCHC 29.4 g/dL (32.0-37.0); MCV 82.7 fL (80.0-97.0); Mean Platelet Volume 10.3 fL (9.5-12.2); Monocytes # (A) 0.66 X 10*3/uL (0.20-1.00); Monocytes % (A) 5.3 %; Neutrophils # (A) 10.67 X 10*3/uL (1.80-7.70); Neutrophils % (A) 86.6 %; Platelet Count 219 X 10*3/uL (140-440); RDW 14.6 % (11.5-14.5); WBC 12.34 X 10*3/uL (4.50-10.00)
[2020-08-15 11:58] LABS: African American GFR (CKD) 36.5 (60.0-200.0); Anion Gap 9.6 mmol/L (4.00-12.00); BUN/Creat Ratio 11.05 Ratio (12.00-20.00); Calcium 8.1 mg/dL (8.7-10.3); Carbon Dioxide 20.4 mmol/L (21.6-31.8); Non-African American GFR(CKD) 31.5 (60.0-200.0); Potassium 4.4 mmol/L (3.5-5.5)
--- NOTE | 2020-08-15 12:37 | P.GSCN ---
History of Present Illness Consult date: 08/15/20 History of present illness: 45-year-old female with a recent diagnosis of stage IIIB cervical carcinoma. She is known to for ureteral obstruction. He placed bilateral double- J catheters. This was done proximally 6 weeks ago. She also has had urine retention due to the pelvic mass and is been on intermittent catheterization. She recently came in the hospital with abdominal pain. Her urine is consistent with a hemorrhagic cystitis. We are consult for hematuria. A computed tomography scan of the abdomen shows bilateral double-J catheters in place. The right is slipped a little bit distally but is still in adequate position. The patient recently was seen at [facility] in [place]. It was recommended that she undergo chemotherapy radiation here in [place]. She has an indwelling catheter and T colored urine. Review of Systems All systems: negative Past Medical History Past Medical History: Asthma, COPD, CVA/TIA, GERD/Reflux, Seizure Disorder, Skin Disorder Additional Past Medical History / Comment(s): TIA, brain bleed 2008. Hx seizure poss R/T Rx, 2012. 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 Fell 02/2020 w/ dislocation hip, bruised tailbone. Ezcema, psoriasis, rosacea. Recent constipation, c/o pain mid back/flank area. Varicose veins,kidney stents 06/29/20 History of Any Multi-Drug Resistant Organisms: MRSA Year Discovered:: 2010 MDRO Source:: uterus Past Surgical History: Appendectomy, Section Additional Past Surgical History / Comment(s): 2 D&C, 2008 Past Anesthesia/Blood Transfusion Reactions: Previous Problems w/ Anesthesia, Motion Sickness Additional Past Anesthesia/Blood Transfusion Reaction / Comm: Reaction 2004 w/ D&C heart rate ecelerated, blood pressure bottomed out, uncontrolled; with C-S spinal block paralyzed lung, stopped breathing. Novocain caused leg tremors w/ dental work. Requesting Ativan in pre-op D/T anxiousness. Past Psychological History: ADD/ADHD, Anxiety, PTSD Additional Psychological History / Comment(s): states that PTSD was treated Smoking Status: Never smoker Past Alcohol Use History: None Reported Additional Past Alcohol Use History / Comment(s): smoked 2 cartons of cigarettes in 1 day 2000 Past Drug Use History: None Reported - Past Family History Father Family Medical History: Cancer, Deep Vein Thrombosis (DVT) Additional Family Medical History / Comment(s): thyroid goiter, poss cancer Medications and Allergies Home Medications Medication Instructions Recorded Confirmed Type Morphine Sulfate ER [Ms Contin] 15 mg PO Q12HR PRN 08/06/20 08/14/20 History Sennosides [Senna] 8.6 mg PO BID PRN 08/06/20 08/14/20 History Lactulose 20 gm PO BID PRN #900 ml 08/09/20 08/14/20 Rx bisacodyL [Dulcolax] 10 mg RECTAL DAILY PRN #12 supp 08/09/20 08/14/20 Rx Sulfamethox-Tmp 800-160Mg [Bactrim 1 tab PO Q12HR #20 tab 08/13/20 08/14/20 Rx DS 800-160 mg] HYDROcodone/APAP 10-325MG [[place] 1 tab PO Q4HR PRN 08/14/20 08/14/20 History 10-325] Lidocaine 5% Oint [Xylocaine 5% 1 applic TOPICAL DAILY PRN 08/14/20 08/14/20 History Oint] Allergies Allergy/AdvReac Type Severity Reaction Status Date / Time shellfish derived [Shellfish] Allergy Mild Swelling, Verified 08/14/20 19:18 nausea ciprofloxacin [From Cipro] Allergy Anaphylaxis Verified 08/14/20 19:18 coconut Allergy Anaphylaxis Verified 08/14/20 19:18 Fish Containing Products Allergy Anaphylaxis Verified 08/14/20 19:18 [Fish] fluticasone Allergy Anaphylaxis Verified 08/14/20 19:18 [From Flovent Diskus] honey Allergy Swelling Verified 08/14/20 19:18 Iodinated Contrast Media Allergy Swelling Verified 08/14/20 19:18 [Iodinated Contrast Media - IV Dye] iodine Allergy Swelling Verified 08/14/20 19:18 lamotrigine [From Lamictal] Allergy Anaphylaxis, Verified 08/14/20 19:18 seizures, hives latex Allergy Rash/Hives, Verified 08/14/20 19:18 dyspnea medroxyprogesterone Allergy Unknown Verified 08/14/20 19:18 [From Depo-Provera] naproxen Allergy Rash/Hives Verified 08/14/20 19:18 nitrofurantoin Allergy Rash/Hives Verified 08/14/20 19:18 [From Macrobid] oxcarbazepine Allergy Unknown Verified 08/14/20 19:18 [From Trileptal] oxycodone [From Percocet] Allergy Anaphylaxis Verified 08/14/20 19:18 Penicillins Allergy Anaphylaxis Verified 08/14/20 19:18 Quinolones Allergy Dyspnea Verified 08/14/20 19:18 talc Allergy Dyspnea Verified 08/14/20 19:18 topiramate [From Topamax] Allergy Rash/Hives, Verified 08/14/20 19:18 seizures venom-honey bee Allergy Anaphylaxis Verified 08/14/20 19:18 [bee venom (honey bee)] venom-wasp [wasp venom] Allergy Anaphylaxis Verified 08/14/20 19:18 codeine AdvReac Vomiting Verified 08/14/20 19:18 diphenhydramine AdvReac Unknown Verified 08/14/20 19:18 [From Benadryl] divalproex sodium AdvReac Unknown Verified 08/14/20 19:18 [From Depakote] erythromycin base AdvReac Unknown Verified 08/14/20 19:18 paroxetine [From Paxil] AdvReac suicidal Verified 08/14/20 19:18 procaine [From Novocain] AdvReac Unknown Verified 08/14/20 19:18 Surgical - Exam Vital Signs Temp Pulse Resp BP Pulse Ox 100.2 F H 128 H 18 105/64 95 08/14/20 16:43 08/14/20 16:43 08/14/20 16:43 08/14/20 16:43 08/14/20 16:43 - General well developed, well nourished, moderate distress - Eyes PERRL - ENT no hearing loss - Respiratory normal expansion, normal respiratory effort - Cardiovascular Rhythm: regular - Abdomen Abdomen: soft, tender - Musculoskeletal normal posture - Psychiatric oriented to time, oriented to person, oriented to place, speech is normal, memory intact Results - Labs 08/15/20 06:40 08/15/20 06:40 Abnormal Lab Results - Last 24 Hours (Table) 08/14/20 08/14/20 08/14/20 Range/Units 19:39 19:39 19:39 WBC 15.1 H (3.8-10.6) k/uL RBC (4.10-5.20) X 10*6/uL Hgb 9.5 L (11.4-16.0) gm/dL Hct 30.6 L (34.0-46.0) % MCV 77.8 L (80.0-100.0) fL MCH 24.2 L (25.0-35.0) pg MCHC (32.0-37.0) g/dL RDW (11.5-14.5) % Immature Gran # (0.00-0.04) X 10*3/uL Neutrophils # 13.7 H (1.3-7.7) k/uL Lymphocytes # 0.7 L (1.0-4.8) k/uL Eosinophils # (0.04-0.35) X 10*3/uL APTT (22.0-30.0) sec Sodium 135 L (137-145) mmol/L Carbon Dioxide (21.6-31.8) mmol/L BUN 20 H (7-17) mg/dL Creatinine 1.84 H (0.52-1.04) mg/dL Est GFR (CKD-EPI)AfAm (60.0-200.0) Est GFR (CKD-EPI)NonAf (60.0-200.0) BUN/Creatinine Ratio (12.00-20.00) Ratio Glucose 106 H (74-99) mg/dL Calcium (8.7-10.3) mg/dL AST 59 H (14-36) U/L ALT 38 H (4-34) U/L Alkaline Phosphatase 287 H (38-126) U/L C-Reactive Protein (<1.0) mg/dL Urine Appearance Bloody H (Clear) Urine RBC >182 H (0-5) /hpf Urine WBC >182 H (0-5) /hpf 08/15/20 08/15/20 08/15/20 Range/Units 01:12 06:40 06:40 WBC 12.34 H (3.8-10.6) k/uL RBC 3.00 L (4.10-5.20) X 10*6/uL Hgb 7.3 L (11.4-16.0) gm/dL Hct 24.8 L (34.0-46.0) % MCV (80.0-100.0) fL MCH 24.3 L (25.0-35.0) pg MCHC 29.4 L (32.0-37.0) g/dL RDW 14.6 H (11.5-14.5) % Immature Gran # 0.06 H (0.00-0.04) X 10*3/uL Neutrophils # 10.67 H (1.3-7.7) k/uL Lymphocytes # 0.88 L (1.0-4.8) k/uL Eosinophils # 0.03 L (0.04-0.35) X 10*3/uL APTT 17.7 L (22.0-30.0) sec Sodium (137-145) mmol/L Carbon Dioxide 20.4 L (21.6-31.8) mmol/L BUN (7-17) mg/dL Creatinine 1.9 H (0.52-1.04) mg/dL Est GFR (CKD-EPI)AfAm 36.5 L (60.0-200.0) Est GFR (CKD-EPI)NonAf 31.5 L (60.0-200.0) BUN/Creatinine Ratio 11.05 L (12.00-20.00) Ratio Glucose (74-99) mg/dL Calcium 8.1 L (8.7-10.3) mg/dL AST (14-36) U/L ALT (4-34) U/L Alkaline Phosphatase (38-126) U/L C-Reactive Protein (<1.0) mg/dL Urine Appearance (Clear) Urine RBC (0-5) /hpf Urine WBC (0-5) /hpf 08/15/20 Range/Units 06:40 WBC (3.8-10.6) k/uL RBC (4.10-5.20) X 10*6/uL Hgb (11.4-16.0) gm/dL Hct (34.0-46.0) % MCV (80.0-100.0) fL MCH (25.0-35.0) pg MCHC (32.0-37.0) g/dL RDW (11.5-14.5) % Immature Gran # (0.00-0.04) X 10*3/uL Neutrophils # (1.3-7.7) k/uL Lymphocytes # (1.0-4.8) k/uL Eosinophils # (0.04-0.35) X 10*3/uL APTT (22.0-30.0) sec Sodium (137-145) mmol/L Carbon Dioxide (21.6-31.8) mmol/L BUN (7-17) mg/dL Creatinine (0.52-1.04) mg/dL Est GFR (CKD-EPI)AfAm (60.0-200.0) Est GFR (CKD-EPI)NonAf (60.0-200.0) BUN/Creatinine Ratio (12.00-20.00) Ratio Glucose (74-99) mg/dL Calcium (8.7-10.3) mg/dL AST (14-36) U/L ALT (4-34) U/L Alkaline Phosphatase (38-126) U/L C-Reactive Protein 17.5 H (<1.0) mg/dL Urine Appearance (Clear) Urine RBC (0-5) /hpf Urine WBC (0-5) /hpf Microbiology - Last 24 Hours (Table) 08/14/20 19:39 Urine Culture - Preliminary Urine,Clean Catch Diabetes panel 08/14/20 08/15/20 Range/Units 19:39 06:40 Sodium 135 L 136 (137-145) mmol/L Potassium 4.8 4.4 (3.5-5.1) mmol/L Chloride 103 106 (98-107) mmol/L Carbon Dioxide 22 20.4 L (22-30) mmol/L BUN 20 H 21.0 (7-17) mg/dL Creatinine 1.84 H 1.9 H (0.52-1.04) mg/dL Glucose 106 H 104 (74-99) mg/dL Calcium 9.3 8.1 L (8.4-10.2) mg/dL AST 59 H (14-36) U/L ALT 38 H (4-34) U/L Alkaline Phosphatase 287 H (38-126) U/L Total Protein 7.7 (6.3-8.2) g/dL Albumin 3.7 (3.5-5.0) g/dL Calcium panel 08/14/20 08/15/20 Range/Units 19:39 06:40 Calcium 9.3 8.1 L (8.4-10.2) mg/dL Albumin 3.7 (3.5-5.0) g/dL Pituitary panel 08/14/20 08/15/20 Range/Units 19:39 06:40 Sodium 135 L 136 (137-145) mmol/L Potassium 4.8 4.4 (3.5-5.1) mmol/L Chloride 103 106 (98-107) mmol/L Carbon Dioxide 22 20.4 L (22-30) mmol/L BUN 20 H 21.0 (7-17) mg/dL Creatinine 1.84 H 1.9 H (0.52-1.04) mg/dL Glucose 106 H 104 (74-99) mg/dL Calcium 9.3 8.1 L (8.4-10.2) mg/dL Adrenal panel 08/14/20 08/15/20 Range/Units 19:39 06:40 Sodium 135 L 136 (137-145) mmol/L Potassium 4.8 4.4 (3.5-5.1) mmol/L Chloride 103 106 (98-107) mmol/L Carbon Dioxide 22 20.4 L (22-30) mmol/L BUN 20 H 21.0 (7-17) mg/dL Creatinine 1.84 H 1.9 H (0.52-1.04) mg/dL Glucose 106 H 104 (74-99) mg/dL Calcium 9.3 8.1 L (8.4-10.2) mg/dL Total Bilirubin 0.6 (0.2-1.3) mg/dL AST 59 H (14-36) U/L ALT 38 H (4-34) U/L Alkaline Phosphatase 287 H (38-126) U/L Total Protein 7.7 (6.3-8.2) g/dL Albumin 3.7 (3.5-5.0) g/dL - Imaging CT scan - abdomen: report reviewed, image reviewed CT scan - pelvis: report reviewed, image reviewed Assessment and Plan Assessment: Impression: Gross hematuria secondary to hemorrhagic cystitis. Bilateral hydronephrosis treated with double-J catheters due to cervical cancer. Urine retention due to cervical cancer. Recommendations: Trisha biotics and urine culture pending are the treatment of choice for the hematuria. The stents do not need to be replaced. I took the liberty of counseling Dr. Paula of oncology and Dr. Alfredo of radiation onco logy as this was recommended by the [facility] oncologist in [place]. Time with Patient: Greater than 30
[2020-08-15] MEDS: HYDROcodone/APAP 10-325MG 1 EACH TAB PO PRN (14:43)
[2020-08-15] MEDS ORDERED: BENZOCAINE 20% HEMORRHOIDAL OINT 28GM RECTAL PRN (14:59)
[2020-08-15] MEDS: metroNIDAZOLE-NS PMX 500 MG in SALINE 1 100ML.BAG IVPB SCH (15:45)
--- NOTE | 2020-08-15 16:03 | P.HPIM ---
History of Present Illness H&P Date: 08/15/20 Chief Complaint: Abdominal pain/vomiting Patient is a 45-year-old female that presents to emergency with abdominal pain. She was recently diagnosed with cervical cancer. She notes that she self catheterizes for urinary retention. She presents emergency with abdominal pain nausea vomiting. She was in bed in pain and was unable to give accurate answers to examination questions. Patient had bilateral ureteral stents placed on 06/25/2020. She denied any chest pain shortness of breath headache fatigue hematochezia melena. White blood cells 15.1, urinalysis: Bloody, red blood cells greater than 182, white blood cells greater than 182. Cefepime and vancomycin ordered. KUB: Nonacute abdomen. The right ureteral stent appears more inferior than last exam. CT of the abdomen and pelvis: There is some minimal reticular nodular infiltrate at the lung bases. Extensive inflammatory changes in the pelvis with perirectal density measuring up to almost 3 cm in thickness. This is worse than last exam. Consider both inflammatory disease and malignancy. There is bilateral moderate hydronephrosis which appears to same or slightly worse than last exam. Stent malfunction is possible. There is increased reticular nodular interstitial infiltrate the lung bases compared to old exam. Review of Systems REVIEW OF SYSTEMS: CONSTITUTIONAL: No fever, no malaise, no fatigue. HEENT: No recent visual problems or hearing problems. Denied any sore throat. CARDIOVASCULAR: No chest pain, orthopnea, PND, no palpitations, no syncope. PULMONARY: No shortness of breath, no cough, no hemoptysis. GASTROINTESTINAL: No diarrhea, no nausea, no vomiting, no abdominal pain. NEUROLOGICAL: No headaches, no weakness, no numbness. HEMATOLOGICAL: Denies any bleeding or petechiae. GENITOURINARY: Denies any burning micturition, frequency, or urgency. MUSCULOSKELETAL/RHEUMATOLOGICAL: Denies any joint pain, swelling, or any muscle pain. ENDOCRINE: Denies any polyuria or polydipsia. The rest of the 14-point review of systems is negative. Past Medical History Past Medical History: Asthma, COPD, CVA/TIA, GERD/Reflux, Seizure Disorder, Skin Disorder Additional Past Medical History / Comment(s): TIA, brain bleed 2008. Hx seizure poss R/T Rx, 2012. 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 Fell 02/2020 w/ dislocation hip, bruised tailbone. Ezcema, psoriasis, rosacea. Recent constipation, c/o pain mid back/flank area. Varicose veins,kidney stents 06/29/20 History of Any Multi-Drug Resistant Organisms: MRSA Date of last positivie culture/infection: 2010 MDRO Source:: uterus Past Surgical History: Appendectomy, Section Additional Past Surgical History / Comment(s): 2 D&C, 2008 Past Anesthesia/Blood Transfusion Reactions: Previous Problems w/ Anesthesia, Motion Sickness Additional Past Anesthesia/Blood Transfusion Reaction / Comment(s): Reaction 2004 w/ D&C heart rate ecelerated, blood pressure bottomed out, uncontrolled; with C-S spinal block paralyzed lung, stopped breathing. Novocain caused leg t remors w/ dental work. Requesting Ativan in pre-op D/T anxiousness. Past Psychological History: ADD/ADHD, Anxiety, PTSD Additional Psychological History / Comment(s): states that PTSD was treated Smoking Status: Never smoker Past Alcohol Use History: None Reported Additional Past Alcohol Use History / Comment(s): smoked 2 cartons of cigarettes in 1 day 2000 Past Drug Use History: None Reported - Past Family History Father Family Medical History: Cancer, Deep Vein Thrombosis (DVT) Additional Family Medical History / Comment(s): thyroid goiter, poss cancer Medications and Allergies Home Medications Medication Instructions Recorded Confirmed Type Morphine Sulfate ER [Ms Contin] 15 mg PO Q12HR PRN 08/06/20 08/14/20 History Sennosides [Senna] 8.6 mg PO BID PRN 08/06/20 08/14/20 History Lactulose 20 gm PO BID PRN #900 ml 08/09/20 08/14/20 Rx bisacodyL [Dulcolax] 10 mg RECTAL DAILY PRN #12 supp 08/09/20 08/14/20 Rx Sulfamethox-Tmp 800-160Mg [Bactrim 1 tab PO Q12HR #20 tab 08/13/20 08/14/20 Rx DS 800-160 mg] HYDROcodone/APAP 10-325MG [[place] 1 tab PO Q4HR PRN 08/14/20 08/14/20 History 10-325] Lidocaine 5% Oint [Xylocaine 5% 1 applic TOPICAL DAILY PRN 08/14/20 08/14/20 History Oint] Allergies Allergy/AdvReac Type Severity Reaction Status Date / Time shellfish derived [Shellfish] Allergy Mild Swelling, Verified 08/14/20 19:18 nausea ciprofloxacin [From Cipro] Allergy Anaphylaxis Verified 08/14/20 19:18 coconut Allergy Anaphylaxis Verified 08/14/20 19:18 Fish Containing Products Allergy Anaphylaxis Verified 08/14/20 19:18 [Fish] fluticasone Allergy Anaphylaxis Verified 08/14/20 19:18 [From Flovent Diskus] honey Allergy Swelling Verified 08/14/20 19:18 Iodinated Contrast Media Allergy Swelling Verified 08/14/20 19:18 [Iodinated Contrast Media - IV Dye] iodine Allergy Swelling Verified 08/14/20 19:18 lamotrigine [From Lamictal] Allergy Anaphylaxis, Verified 08/14/20 19:18 seizures, hives latex Allergy Rash/Hives, Verified 08/14/20 19:18 dyspnea medroxyprogesterone Allergy Unknown Verified 08/14/20 19:18 [From Depo-Provera] naproxen Allergy Rash/Hives Verified 08/14/20 19:18 nitrofurantoin Allergy Rash/Hives Verified 08/14/20 19:18 [From Macrobid] oxcarbazepine Allergy Unknown Verified 08/14/20 19:18 [From Trileptal] oxycodone [From Percocet] Allergy Anaphylaxis Verified 08/14/20 19:18 Penicillins Allergy Anaphylaxis Verified 08/14/20 19:18 Quinolones Allergy Dyspnea Verified 08/14/20 19:18 talc Allergy Dyspnea Verified 08/14/20 19:18 topiramate [From Topamax] Allergy Rash/Hives, Verified 08/14/20 19:18 seizures venom-honey bee Allergy Anaphylaxis Verified 08/14/20 19:18 [bee venom (honey bee)] venom-wasp [wasp venom] Allergy Anaphylaxis Verified 08/14/20 19:18 codeine AdvReac Vomiting Verified 08/14/20 19:18 diphenhydramine AdvReac Unknown Verified 08/14/20 19:18 [From Benadryl] divalproex sodium AdvReac Unknown Verified 08/14/20 19:18 [From Depakote] erythromycin base AdvReac Unknown Verified 08/14/20 19:18 paroxetine [From Paxil] AdvReac suicidal Verified 08/14/20 19:18 procaine [From Novocain] AdvReac Unknown Verified 08/14/20 19:18 Physical Exam Vitals: Vital Signs Temp Pulse Pulse Resp BP BP Pulse Ox 08/15/20 07:45 99.1 F 107 H 18 96/58 98 08/15/20 02:15 99.7 F H 118 H 19 105/64 92 L 08/15/20 01:13 125 H 08/15/20 01:06 140 H 18 08/15/20 00:23 99.2 F 116 H 18 118/78 98 08/15/20 00:09 100 F H 140 H 20 131/74 95 08/14/20 20:08 92 L 08/14/20 20:06 86 L 08/14/20 19:56 112/76 08/14/20 16:43 100.2 F H 128 H 18 105/64 95 Intake and Output 08/14/20 08/15/20 08/15/20 22:59 06:59 14:59 Intake Total 600 Output Total 900 Balance -300 Intake: Intake, IV Titration 600 Amount Sodium Chloride 0.9% 1, 600 000 ml @ 150 mls/hr IV . Q6H40M [facility] Rx#:[id number] Output: Urine 900 Other: Voiding Method Indwelling Catheter # Bowel Movements 1 Weight 90.718 kg 90.718 kg - Constitutional General appearance: Present: average body habitus, cooperative, no acute distress - EENT Eyes: Present: anicteric sclerae, EOMI, PERRLA, normal appearance ENT: Present: hearing grossly normal, normal oropharynx Ears: bilateral: normal - Neck Neck: Present: normal ROM. Absent: lymphadenopathy, rigidity, thyromegaly Carotids: negative: bruit present Thyroid: bilateral: normal size, negative: enlarged, nodule - Respiratory Respiratory: bilateral: CTA, negative: rales, rhonchi, wheezing - Cardiovascular Rhythm: regular Heart sounds: normal: S1, S2 Abnormal Heart Sounds: Absent: systolic murmur, diastolic murmur - Gastrointestinal General gastrointestinal: Present: normal bowel sounds, soft. Absent: distended, organomegaly, tenderness - Genitourinary Genitourinary Comment(s): deferred - Integumentary Integumentary: Present: normal turgor. Absent: jaundiced, rash, ulcer - Neurologic Neurologic: Present: CNII-XII intact. Absent: focal deficits - Musculoskeletal Musculoskeletal: Present: gait normal, strength equal bilaterally - Psychiatric Psychiatric: Present: A&O x's 3, appropriate affect, intact judgment & insight Results CBC & Chem 7: 08/15/20 06:40 08/15/20 06:40 Labs: Abnormal Lab Results - Last 24 Hours (Table) 08/14/20 08/14/20 08/14/20 Range/Units 19:39 19:39 19:39 WBC 15.1 H (3.8-10.6) k/uL Hgb 9.5 L (11.4-16.0) gm/dL Hct 30.6 L (34.0-46.0) % MCV 77.8 L (80.0-100.0) fL MCH 24.2 L (25.0-35.0) pg Neutrophils # 13.7 H (1.3-7.7) k/uL Lymphocytes # 0.7 L (1.0-4.8) k/uL APTT (22.0-30.0) sec Sodium 135 L (137-145) mmol/L BUN 20 H (7-17) mg/dL Creatinine 1.84 H (0.52-1.04) mg/dL Glucose 106 H (74-99) mg/dL AST 59 H (14-36) U/L ALT 38 H (4-34) U/L Alkaline Phosphatase 287 H (38-126) U/L Urine Appearance Bloody H (Clear) Urine RBC >182 H (0-5) /hpf Urine WBC >182 H (0-5) /hpf 08/15/20 Range/Units 01:12 WBC (3.8-10.6) k/uL Hgb (11.4-16.0) gm/dL Hct (34.0-46.0) % MCV (80.0-100.0) fL MCH (25.0-35.0) pg Neutrophils # (1.3-7.7) k/uL Lymphocytes # (1.0-4.8) k/uL APTT 17.7 L (22.0-30.0) sec Sodium (137-145) mmol/L BUN (7-17) mg/dL Creatinine (0.52-1.04) mg/dL Glucose (74-99) mg/dL AST (14-36) U/L ALT (4-34) U/L Alkaline Phosphatase (38-126) U/L Urine Appearance (Clear) Urine RBC (0-5) /hpf Urine WBC (0-5) /hpf Microbiology - Last 24 Hours (Table) 08/14/20 19:39 Urine Culture - Preliminary Urine,Clean Catch Thrombosis Risk Factor Assmnt - Choose All That Apply Any of the Below Risk Factors Present?: Yes Each Factor Represents 1 point: Age 41-60 years, Medical pt on bed rest Other Risk Factors: No Other congenital or acquired thrombophilia - If yes, enter type in comment: No Thrombosis Risk Factor Assessment Total Risk Factor Score: 2 Thrombosis Risk Factor Assessment Level: Low Risk Assessment and Plan Assessment: 1. Abdominal pain with perirectal density/thickness - CT abdomen reveals inflammatory changes and rectal area; possibly secondary to inflammation versus related to cervical cancer; surgery on board and recommending colonoscopy 2. Urinary obstruction/hydronephrosis; possible stent malfunctioning; urology on board and recommending a double-J catheter at this time; patient remains on IV antibiotics 3. Hemorrhagic Cystitis; patient is evaluated by urology and is recommending double-J catheters due to cervical cancer; continue with current antibiotics with further recommendations once urine culture results are available 4. Cervical cancer; recent diagnosis; consult Dr. Paula of oncology and Dr. Alfredo of radiation oncology per recommendation by gynecological oncologist in [place] 5. Acute renal injury/ dehydration; continue with IV fluid hydration with normal saline at 75 mL an hour; monitor strict SHIRA's, daily weights, renal function and electrolytes; avoid nephrotoxins and hypotension DVT prophylaxis; SCDs only due to him a CODE STATUS; full code
[2020-08-15] MEDS: HYDROmorphone 2 MG/ML 1 ML SYRINGE IVP PRN ×2 (17:58→22:28)
--- NOTE | 2020-08-15 19:11 | CONS ---
CONSULTATION DATE OF SERVICE: 08/15/2020 REASON FOR CONSULTATION: HISTORY OF PRESENT ILLNESS: The patient is a 45 -year-old female with a past medical history significant for recent diagnosis of stage IIIB cervical carcinoma for which the patient has not yet started chemo or radiation therapy. The patient also has evidence of ureteral obstruction for which the patient did have a bilateral double-J catheter placement by Dr. Kelly. This patient also seemed to have problem with urinary retention requiring intermittent self-catheterization. The patient presented to [facility] ER last evening for evaluation of abdominal pain. The patient's pain has been getting worse for the last 2 days. Pain is mostly lower abdominal area described to be more sharp in nature, intensity 5 to 6 out of 10, no radiation with persistent nausea and vomiting but denies having any diarrhea. With these symptoms, the patient was evaluated by the ER physician. On arrival to the ER, the patient did have a fever of 100.2. He was slightly tachycardic and did have white count of 15.1, creatinine was mildly elevated. Urine was bloody with more than 1 to 2 WBC, as well as RBC. [place] PCR was negative. The patient did have a CT of abdomen and pelvis which shows extensive inflammatory changes in the pelvis with area up to 3 cm in thickness. This was worse than the last exam consistent of both inflammatory disease and malignancy, bilateral moderate hydronephrosis. The patient has been admitted to the hospital. The patient was started on cefepime and vancomycin. Infectious Disease was consulted for further management of antibiotic therapy. REVIEW OF SYSTEMS: Positive points have been mentioned in HPI. Rest of the systems are negative. PAST MEDICAL HISTORY: Recent diagnosis of stage IIIB cervical cancer. The patient did have a COPD, gastroesophageal reflux disease, seizure disorder, asthma, urinary obstruction requiring bilateral double-J catheter placement. PAST SURGICAL HISTORY: Appendectomy, , D&C, . SOCIAL HISTORY: Remote history of smoking. No drinking or drug use. FAMILY HISTORY: Father with history of prostate cancer and DVT. ALLERGIES: TO MULTIPLE MEDICATIONS INCLUDING CIPRO as documented in the chart and reviewed. MEDICATION: The patient is currently on vancomycin, Senokot, Zofran, Narcan, Ms Contin, lactulose, Dilaudid, cefepime, [place] and Tylenol. PHYSICAL EXAMINATION: Blood pressure 119/73 with a pulse of 73, temperature 98.9. She is 98% on 2 L nasal cannula. General description is a middle-aged female lying in bed in no distress. HEENT examination: Slight pallor. No scleral icterus. Oral mucous membrane is dry. NECK: Trachea is central. No thyromegaly. LUNGS: Unlabored breathing. Clear to auscultation anteriorly. No wheeze or crackles. HEART: S1, S2. Regular rate and rhythm. ABDOMEN: Soft. The patient is tender in the lower quadrant area. No guarding. No rigidity. No organomegaly. EXTREMITIES: No edema of the feet. SKIN: No rash or mass palpable. NEUROLOGICALLY: The patient is extremely lethargic though arousable. Oriented x3. Mood and affect normal. LABS: Hemoglobin is 9.5, white count 15.1, BUN of 20, creatinine 1.84. is 1.9. AST is mild. Liver enzymes mildly elevated. Urine was positive. DIAGNOSTIC IMPRESSION AND PLAN: Patient admitted to the hospital with sepsis and did have a low-grade fever, elevated white count, source is likely urinary and this patient did have bilateral hydronephrosis and a significant positive UA and there was also evidence of inflammatory changes around the rectal area. We will need to cover for the enteric gram-negative both aerobes and anaerobes to be the likely pathogen. Clinical suspicion low for a Gram-positive infection. PLAN: 1. Patient to continue with cefepime. However, we will add Flagyl. 2. Gentle IV fluids. 3. We will follow on clinical condition and culture to further adjust medication if needed. Thank you for this consultation. We will follow this patient along with you. MMODL / IJN: [id number] /
--- NOTE | 2020-08-15 21:30 | CONS ---
CONSULTATION DATE OF SERVICE: August 15, 2020. REASON FOR CONSULTATION: Cervical cancer. HISTORY OF PRESENT ILLNESS: Raciel is a very pleasant, 45 years old lady who presented to the emergency department with significant abdominal pain and also lower back pain. The patient was recently diagnosed with locally advanced cervical cancer, I believe stage 2B by Dr. Peña and that caused hydronephrosis to her and she required bilateral ureteral stents placed on 06/25/2020. Also, she has urinary retention, and she stated that she has to do self catheterization, but this has becoming very difficult to her. Carbone catheter was inserted causing significant pain. She is nauseated. She has no fever or chills. During this hospital admission, she was evaluated by Dr. Whiteside and she also had a CT scan of the abdomen which revealed inflammatory changes and in the rectal area consistent with possible proctitis and also she was seen by General surgery and recommendation for a colonoscopy. Of note, the patient has not received any treatment yet for her cervical cancer. PAST MEDICAL HISTORY: She did say she has a history of COPD, gastroesophageal reflux disease, seizure disorder. She had TIA in the past. She has irritable bowel disease, chronic back pain. She had MRSA in the past. She has a history of ADD, anxiety and PTSD. PAST SURGICAL HISTORY: She had appendectomy and section. SOCIAL HISTORY: No current history of smoking. She used to smoke 2 packs of cigarettes a day in the past. FAMILY HISTORY: Positive for her father had deep venous thrombosis. CURRENT MEDICATION: Reviewed in her electronic medical record. PHYSICAL EXAMINATION: She is alert, oriented x3. She appears to be in significant pain. Her vital signs are: Temperature 98.7 afebrile, pulse 111, respiration 18, blood pressure 119/73, pulse ox 98 percent on room air. HEENT: Normocephalic, atraumatic. There is no obvious scleral icterus. NECK: Supple. CHEST: Equal expansion bilaterally. LUNGS: Clear to auscultation. HEART is regular rate and rhythm. ABDOMEN: Soft, but she has generalized tenderness. Bowel sounds present. EXTREMITIES reveal no edema. No significant edema. LYMPHATICS: No supraclavicular nodes. LABORATORY DATA: WBC of 12.3, hemoglobin 7.3, hematocrit 24.8, platelets are 215, sodium 136, potassium 4.4, chloride 106, CO2 is 20.4, BUN is 21.0, creatinine 1.8, calcium 8.1. IMPRESSION: 1. Recent diagnosis of locally advanced cancer of the cervix. She had the previous metastatic workup performed at outside institution. Will try to obtain the records of that. 2. Bilateral hydronephrosis secondary to above. 3. Abdominal pain with perirectal inflammatory process. 4. Anemia, likely related to underlying malignancy and also to anemia related to renal failure. 5. Leukocytosis in this lady who recently had bilateral ureteral stent placement. RECOMMENDATION: 1. In regard to pain management, we will increase the dose of her long-acting MS Contin and she may continue with Dilaudid for breakthrough pain and I will increase the dose of that. 2. I agree with broad-spectrum IV antibiotics coverage. 3. Surgery and Neurology are on board. 4. In regard to her cervical cancer, she would require a combination of chemo and radiation therapy. She has not started any treatment for her cervical cancer as of yet. Thank you very much for the consultation. MMDESTINL / IJN: [id number] /
[2020-08-15] MEDS: VANCOMYCIN 1,500 MG in SODIUM CHLORIDE 0.9% 250 ML IVPB SCH (21:40)
[2020-08-15] MEDS: ONDANSETRON 4 MG/2 ML VIAL IVP PRN (22:28)
[2020-08-15] MEDS: ACETAMINOPHEN TAB 325 MG TAB PO PRN (22:28)
[2020-08-16] MEDS: MORPHINE SULFATE ER 30 MG TABLET PO PRN ×2 (00:17→15:26)
[2020-08-16] MEDS: metroNIDAZOLE-NS PMX 500 MG in SALINE 1 100ML.BAG IVPB SCH ×4 (00:18→23:54)
[2020-08-16] MEDS: HYDROmorphone 2 MG/ML 1 ML SYRINGE IVP PRN ×6 (03:26→22:40)
[2020-08-16] MEDS: SODIUM CHLORIDE 0.9% 1,000 ML IV SCH ×3 (03:26→16:48)
[2020-08-16] MEDS: HYDROcodone/APAP 10-325MG 1 EACH TAB PO PRN ×3 (05:09→20:04)
[2020-08-16] MEDS: HEPARIN SODIUM,PORCINE/PF 5,000 UNIT/0.5 ML SYRINGE SQ SCH ×2 (07:37→20:05)
[2020-08-16] MEDS: FAMOTIDINE 20 MG/2 ML VIAL IV SCH ×2 (07:38→20:04)
[2020-08-16] MEDS: CEFEPIME 2 GM in SODIUM CHLORIDE 0.9% 100 ML IVPB SCH ×2 (08:56→22:07)
[2020-08-16 10:00] LABS: Basophils # (A) 0.04 X 10*3/uL (0.00-0.10); Basophils % (A) 0.6 %; Eosinophils # (A) 0.02 X 10*3/uL (0.04-0.35); Eosinophils % (A) 0.3 %; HCT 26.2 % (37.2-46.3); HGB 7.5 g/dL (12.0-15.0); Lymphocytes # (A) 1.22 X 10*3/uL (0.90-5.00); Lymphocytes % (A) 16.9 %; MCH 23.7 pg (27.0-32.0); MCHC 28.6 g/dL (32.0-37.0); MCV 82.9 fL (80.0-97.0); Mean Platelet Volume 10.9 fL (9.5-12.2); Monocytes # (A) 0.68 X 10*3/uL (0.20-1.00); Monocytes % (A) 9.4 %; Neutrophils % (A) 72.2 %; Platelet Count 186 X 10*3/uL (140-440); RBC 3.16 X 10*6/uL (4.10-5.20); RDW 14.6 % (11.5-14.5)
[2020-08-16 10:01] LABS: African American GFR (CKD) 41.8 (60.0-200.0); Anion Gap 8.8 mmol/L (4.00-12.00); BUN/Creat Ratio 12.94 Ratio (12.00-20.00); Calcium 8.4 mg/dL (8.7-10.3); Carbon Dioxide 23.2 mmol/L (21.6-31.8); Potassium 4.5 mmol/L (3.5-5.5)
--- NOTE | 2020-08-16 11:01 | P.PN ---
Subjective Progress Note Date: 08/16/20 Principal diagnosis: Proctitis Patient doing much better today. T-max 102.4. Remains tachycardic. Yesterday the patient was somewhat lethargic however today the patient is wide awake. Says her pain resolved after the Carbone catheter was changed to a nonlatex catheter. She has had some loose stools. No rectal bleeding. White blood cell count normal. Objective - Vital Signs Vital signs: Vital Signs Temp 98.1 F 08/16/20 07:40 Pulse 118 H 08/16/20 07:40 Resp 18 08/16/20 07:40 BP 104/64 08/16/20 07:40 Pulse Ox 90 L 08/16/20 07:41 Intake & Output 08/15/20 08/16/20 08/16/20 18:59 06:59 18:59 Intake Total 1300 200 Output Total 650 1600 Balance 650 -1600 200 Intake: IV 100 100 Cefepime 2 gm In Sodium 100 100 Chloride 0.9% 100 ml @ 200 mls/hr IVPB Q12H [facility] Rx#:[id number] Intake, IV Titration 1200 100 Amount Sodium Chloride 0.9% 1, 1200 000 ml @ 150 mls/hr IV . Q6H40M [facility] Rx#:[id number] metroNIDAZOLE-NS PMX 500 100 mg In Saline 1 100ml.bag @ 100 mls/hr IVPB Q8HR [facility] Rx#:[id number] Output: Urine 650 1600 Other: Voiding Method Indwelling Catheter Indwelling Catheter Indwelling Catheter - Exam Abdomen: Soft, nondistended, mild lower abdominal tenderness - Labs CBC & Chem 7: 08/16/20 05:53 08/16/20 05:53 Labs: Abnormal Lab Results - Last 24 Hours (Table) 08/15/20 08/15/20 08/15/20 Range/Units 06:40 06:40 06:40 WBC 12.34 H (4.50-10.00) X 10*3/uL RBC 3.00 L (4.10-5.20) X 10*6/uL Hgb 7.3 L (12.0-15.0) g/dL Hct 24.8 L (37.2-46.3) % MCH 24.3 L (27.0-32.0) pg MCHC 29.4 L (32.0-37.0) g/dL RDW 14.6 H (11.5-14.5) % Immature Gran # 0.06 H (0.00-0.04) X 10*3/uL Neutrophils # 10.67 H (1.80-7.70) X 10*3/uL Lymphocytes # 0.88 L (0.90-5.00) X 10*3/uL Eosinophils # 0.03 L (0.04-0.35) X 10*3/uL Carbon Dioxide 20.4 L (21.6-31.8) mmol/L Creatinine 1.9 H (0.6-1.5) mg/dL Est GFR (CKD-EPI)AfAm 36.5 L (60.0-200.0) Est GFR (CKD-EPI)NonAf 31.5 L (60.0-200.0) BUN/Creatinine Ratio 11.05 L (12.00-20.00) Ratio Calcium 8.1 L (8.7-10.3) mg/dL C-Reactive Protein (<1.0) mg/dL Procalcitonin 2.54 H (0.02-0.09) ng/mL 08/15/20 08/16/20 08/16/20 Range/Units 06:40 05:53 05:53 WBC (4.50-10.00) X 10*3/uL RBC 3.16 L (4.10-5.20) X 10*6/uL Hgb 7.5 L (12.0-15.0) g/dL Hct 26.2 L (37.2-46.3) % MCH 23.7 L (27.0-32.0) pg MCHC 28.6 L (32.0-37.0) g/dL RDW 14.6 H (11.5-14.5) % Immature Gran # (0.00-0.04) X 10*3/uL Neutrophils # (1.80-7.70) X 10*3/uL Lymphocytes # (0.90-5.00) X 10*3/uL Eosinophils # 0.02 L (0.04-0.35) X 10*3/uL Carbon Dioxide (21.6-31.8) mmol/L Creatinine 1.7 H (0.6-1.5) mg/dL Est GFR (CKD-EPI)AfAm 41.8 L (60.0-200.0) Est GFR (CKD-EPI)NonAf 36.0 L (60.0-200.0) BUN/Creatinine Ratio (12.00-20.00) Ratio Calcium 8.4 L (8.7-10.3) mg/dL C-Reactive Protein 17.5 H (<1.0) mg/dL Procalcitonin (0.02-0.09) ng/mL Microbiology - Last 24 Hours (Table) 08/14/20 19:39 Urine Culture - Final Urine,Clean Catch 08/14/20 14:39 Blood Culture Gram Stain - Preliminary Blood 08/14/20 19:39 Blood Culture - Final Blood Assessment and Plan (1) Proctitis Narrative/Plan: Patient doing better at this time. Continue antibiotics. Discussed options of colonoscopy tomorrow but the patient is not ready to take a bowel prep at this time. This can be readdressed tomorrow. Current Visit: Yes Status: Acute Code(s): K62.89 - OTHER SPECIFIED DISEASES OF ANUS AND RECTUM SNOMED Code(s): 9723861
[2020-08-16] MEDS: HYDROmorphone 1 MG/ML 1 ML SYRINGE IVP PRN (13:53)
[2020-08-16] MEDS: SENNOSIDES 8.6 MG TAB PO PRN (15:26)
--- NOTE | 2020-08-16 15:54 | PN ---
PROGRESS NOTE DATE OF SERVICE: August 16, 2020. CHIEF COMPLAINT: Abdominal pain. HISTORY OF PRESENT ILLNESS: Raciel is seen today as a followup. She continued to have some abdominal pain, but it has significantly improved since last night. She still has some pain with bowel movement and she attributes it to hemorrhoids. No nausea or vomiting and no fever or chills. Her pelvic pain significantly improved after the Carbone catheter was removed. CURRENT MEDICATION: Include Tylenol as needed, cefepime 2 g IV every 12 hours, Pepcid 10 mg IV every 12 hours. She is on heparin subcu 5000 units subcutaneously q.12 hours. [place] 10 1 every 4 hours as needed. She is on Dilaudid 1-2 mg IV every 3 hours as needed, lactulose 20 mg b.i.d. as needed. Flagyl 500 mg IV piggyback q.8 hours, MS Contin 30 mg q.12 hours, Senokot b.i.d. as needed, Zofran 4 mg IV as needed, vancomycin 1500 mg IV piggyback every 24 hours. PHYSICAL EXAMINATION: She is alert, oriented x3. She does not appear to be in distress at this point in time. Her vital signs are: Temperature 98.1. Her temp max was 102.4, the pulse is 118, respiration 18, blood pressure 104/64, pulse ox is 93 percent on 3 L. HEENT: Normocephalic, atraumatic. No icterus. NECK: Supple. LUNGS: Clear to auscultation. HEART is regular rate and rhythm. ABDOMEN: Soft. There is no tenderness or obvious organomegaly or masses. EXTREMITIES revealed no edema. LABORATORY DATA: From today, WBC of 7.2, hemoglobin 7.5, hematocrit 26.2, platelets are 186. Sodium 139, potassium 4.5, chloride 107, the BUN is 22, creatinine 1.7. Blood culture was positive for Gram positive bacilli as a preliminary report. Urine culture so far is negative. One set of blood culture was positive for gram positive bacilli. IMPRESSION: 1. Recent diagnosis of locally advanced cancer of the cervix causing bilateral hydronephrosis. 2. Abdominal pain secondary to the above and inflammatory changes in the rectum. This has improved significantly today. 3. Fever and leukocytosis, suspect source is urinary tract in view of hydronephrosis and recent ureteral stent placement. 4. One set of blood cultures positive for gram positive bacilli. RECOMMENDATION: 1. Continue current pain medication management. 2. It is reasonable to consider a colonoscopy as recommended by Dr. Alaniz. 3. She is on broad-spectrum IV antibiotics. She is on cefepime and Flagyl and vancomycin. Awaiting final culture results and she has been followed by Infectious Disease. However, clinically appears to be improving and her leukocytosis is improving. 4. In regard to her cervical cancer, she will likely require and treatment with concurrent chemotherapy and radiation therapy. Awaiting Radiation/ Oncology consultation. Also, we will have to make sure her renal function improved prior to initiation of cisplatin chemotherapy and appears to be improving with IV hydration and since she had bilateral ureteral stent placement. The above was discussed in detail with the patient and I have answered all her questions to her satisfaction. MMSHERI / FRANCOIS: [id number] /
--- NOTE | 2020-08-16 16:11 | P.PN ---
Subjective Progress Note Date: 08/16/20 Principal diagnosis: Sepsis/UTI Locally advanced cervical cancer Bilateral hydronephrosis secondary to urinary obstruction secondary to locally advanced cervical cancer/hemorrhagic cystitis Arin-rectal density/Rectal wall thickening/proctitis 45-year-old female that presents to emergency with abdominal pain. She was recently diagnosed with cervical cancer. She notes that she self catheterizes for urinary retention. She presents emergency with abdominal pain nausea vomiting. She was in bed in pain and was unable to give accurate answers to examination questions. Patient had bilateral ureteral stents placed on 06/25/2020. She denied any chest pain shortness of breath headache fatigue hematochezia melena. White blood cells 15.1, urinalysis: Bloody, red blood cells greater than 182, white blood cells greater than 182. Cefepime and vancomycin ordered. KUB: Nonacute abdomen. The right ureteral stent appears more inferior than last exam. CT of the abdomen and pelvis: There is some minimal reticular nodular infiltrate at the lung bases. Extensive inflammatory changes in the pelvis with perirectal density measuring up to almost 3 cm in thickness. This is worse than last exam. Consider both inflammatory disease and malignancy. There is bilateral moderate hydronephrosis which appears to same or slightly worse than last exam. Stent malfunction is possible. There is increased reticular nodular interstitial infiltrate the lung bases compared to old exam. 08/16/2020 Patient is seen and evaluated at room at bedside; complained of kvrt-wr-[id number] distress secondary to uncontrolled pain; pain medications have been adjusted by oncology; patient continues to complain of abdominal pain but significantly improved from yesterday; no complaining of nausea vomiting; patient has a Carbone catheter in Vital signs are reviewed temperature of 98.1 with T-max of 102.4, pulse 118, respiration 18 and blood pressure of 104/64 with SpO2 of 93% on 3 L Laboratory review reveals a WBC of 7.2, hemoglobin of 7.5 and platelet count of 186; sodium of 139, potassium 4.5 and B UN/creatinine of 22/1.7; blood culture preliminary report reveals gram-positive bacillary; urine culture is negative so far Patient has been evaluated by oncology and is recommended to proceed with colonoscopy; continue with broad-spectrum IV antibiotic coverage with cefepime, Flagyl and vancomycin; patient will likely need to be treated with chemotherapy and radiation therapy for cervical cancer; radiation oncology to see patient and make recommendations Renal function is improving with creatinine down to 1.7 from 1.9 yesterday; we will continue with IV fluid hydration and monitor strict SHIRA's, daily weights, renal function and electrolytes; we will consult nephrology for management of renal function since patient need improved renal function prior to starting chemotherapy Objective - Vital Signs Vital signs: Vital Signs Temp 98.1 F 08/16/20 12:35 Pulse 97 08/16/20 12:35 Resp 18 08/16/20 12:35 BP 109/73 08/16/20 12:35 Pulse Ox 94 L 08/16/20 12:35 Intake & Output 08/15/20 08/16/20 08/16/20 18:59 06:59 18:59 Intake Total 1300 200 Output Total 650 1600 Balance 650 -1600 200 Intake: IV 100 100 Cefepime 2 gm In Sodium 100 100 Chloride 0.9% 100 ml @ 200 mls/hr IVPB Q12H [facility] Rx#:[id number] Intake, IV Titration 1200 100 Amount Sodium Chloride 0.9% 1, 1200 000 ml @ 150 mls/hr IV . Q6H40M [facility] Rx#:[id number] metroNIDAZOLE-NS PMX 500 100 mg In Saline 1 100ml.bag @ 100 mls/hr IVPB Q8HR [facility] Rx#:[id number] Output: Urine 650 1600 Other: Voiding Method Indwelling Catheter Indwelling Catheter Indwelling Catheter - Exam - Constitutional General appearance: Present: average body habitus, cooperative, no acute distress - EENT Eyes: Present: anicteric sclerae, EOMI, PERRLA, normal appearance ENT: Present: hearing grossly normal, normal oropharynx Ears: bilateral: normal - Neck Neck: Present: normal ROM. Absent: lymphadenopathy, rigidity, thyromegaly Carotids: negative: bruit present Thyroid: bilateral: normal size, negative: enlarged, nodule - Respiratory Respiratory: bilateral: CTA, negative: rales, rhonchi, wheezing - Cardiovascular Rhythm: regular Heart sounds: normal: S1, S2 Abnormal Heart Sounds: Absent: systolic murmur, diastolic murmur - Gastrointestinal General gastrointestinal: Present: normal bowel sounds, soft. Absent: distended, organomegaly, tenderness - Genitourinary Genitourinary Comment(s): deferred - Integumentary Integumentary: Present: normal turgor. Absent: jaundiced, rash, ulcer - Neurologic Neurologic: Present: CNII-XII intact. Absent: focal deficits - Musculoskeletal Musculoskeletal: Present: gait normal, strength equal bilaterally - Psychiatric Psychiatric: Present: A&O x's 3, appropriate affect, intact judgment & insight - Labs CBC & Chem 7: 08/16/20 05:53 08/16/20 05:53 Labs: Abnormal Lab Results - Last 24 Hours (Table) 08/15/20 08/16/20 08/16/20 Range/Units 06:40 05:53 05:53 RBC 3.16 L (4.10-5.20) X 10*6/uL Hgb 7.5 L (12.0-15.0) g/dL Hct 26.2 L (37.2-46.3) % MCH 23.7 L (27.0-32.0) pg MCHC 28.6 L (32.0-37.0) g/dL RDW 14.6 H (11.5-14.5) % Eosinophils # 0.02 L (0.04-0.35) X 10*3/uL Creatinine 1.7 H (0.6-1.5) mg/dL Est GFR (CKD-EPI)AfAm 41.8 L (60.0-200.0) Est GFR (CKD-EPI)NonAf 36.0 L (60.0-200.0) Calcium 8.4 L (8.7-10.3) mg/dL Procalcitonin 2.54 H (0.02-0.09) ng/mL Microbiology - Last 24 Hours (Table) 08/14/20 14:39 Blood Culture Gram Stain - Preliminary Blood Blood Culture - Preliminary Diphtheroid species 08/14/20 19:39 Urine Culture - Final Urine,Clean Catch 08/14/20 19:39 Blood Culture - Final Blood Assessment and Plan Assessment: 1. Abdominal pain with perirectal density/thickness - CT abdomen reveals inflammatory changes and rectal area; possibly secondary to inflammation versus related to cervical cancer; surgery on board and recommending colonoscopy 2. Urinary obstruction/hydronephrosis; possible stent malfunctioning; urology on board and recommending a double-J catheter at this time; patient remains on IV antibiotics 3. Hemorrhagic Cystitis; patient is evaluated by urology and is recommending double-J catheters due to cervical cancer; continue with current antibiotics with further recommendations once urine culture results are available 4. Cervical cancer; recent diagnosis; consult Dr. Paula of oncology and Dr. Alfredo of radiation oncology per recommendation by gynecological oncologist in [place] 5. Acute renal injury/ dehydration; continue with IV fluid hydration with normal saline at 75 mL an hour; monitor strict SHIRA's, daily weights, renal function and electrolytes; avoid nephrotoxins and hypotension DVT prophylaxis; SCDs only due to him a CODE STATUS; full code
--- NOTE | 2020-08-16 19:56 | PN ---
PROGRESS NOTE DATE OF SERVICE: 08/16/2020 REASON FOR FOLLOWUP: Complicated UTI, colitis and bacteremia. INTERVAL HISTORY: Patient is currently afebrile. The patient mentioned feeling slightly better today. The patient's abdominal pain has decreased in intensity. No chest pain or shortness of breath. Patient did have some cough, not bringing up any sputum. No vomiting or diarrhea. PHYSICAL EXAMINATION: VITAL SIGNS: Blood pressure 109/73 with a pulse of 97, temperature 98.1, she is 94% on 2 L nasal cannula. GENERAL DESCRIPTION: A middle-aged female lying in bed in no distress. RESPIRATORY SYSTEM: Unlabored breathing, decreased breath sounds at the bases. No wheeze. HEART: S1, S2. Regular rate and rhythm. ABDOMEN: Soft, no tenderness. No guarding or rigidity. LABS: Hemoglobin 7.8, white count 7.2, BUN of 22, creatinine 1.7. Blood culture with diphtheroid species. DIAGNOSTIC IMPRESSION AND PLAN: 1. Patient with admission to the hospital with abdominal pain and fever in this patient who did have a bilateral hydronephrosis with recent diagnosis of the cervical cancer and some evidence of . Patient is covered with cefepime and Flagyl to continue. 2. Positive blood culture with diphtheroid species, more likely contaminant. Blood culture so far pending. MMODL / IJN: [id number] /
[2020-08-16] MEDS: VANCOMYCIN 1,500 MG in SODIUM CHLORIDE 0.9% 250 ML IVPB SCH (22:40)
[2020-08-17] MEDS: HYDROcodone/APAP 10-325MG 1 EACH TAB PO PRN ×5 (00:01→22:00)
[2020-08-17] MEDS: SODIUM CHLORIDE 0.9% 1,000 ML IV SCH ×4 (00:47→23:39)
[2020-08-17] MEDS: HYDROmorphone 2 MG/ML 1 ML SYRINGE IVP PRN ×7 (02:19→23:00)
[2020-08-17] MEDS: HEPARIN SODIUM,PORCINE/PF 5,000 UNIT/0.5 ML SYRINGE SQ SCH (07:09)
[2020-08-17] MEDS: FAMOTIDINE 20 MG/2 ML VIAL IV SCH (07:10)
[2020-08-17] MEDS: metroNIDAZOLE-NS PMX 500 MG in SALINE 1 100ML.BAG IVPB SCH ×3 (07:10→23:02)
[2020-08-17] MEDS: ONDANSETRON 4 MG/2 ML VIAL IVP PRN ×3 (09:19→18:12)
[2020-08-17] MEDS: CEFEPIME 2 GM in SODIUM CHLORIDE 0.9% 100 ML IVPB SCH ×2 (09:19→22:00)
[2020-08-17 11:31] LABS: African American GFR (CKD) 63.7 (60.0-200.0); Anion Gap 8.4 mmol/L (4.00-12.00); BUN/Creat Ratio 14.17 Ratio (12.00-20.00); Carbon Dioxide 21.6 mmol/L (21.6-31.8); Non-African American GFR(CKD) 54.9 (60.0-200.0); Potassium 4.4 mmol/L (3.5-5.5)
[2020-08-17 11:39] LABS: Basophils # (A) 0.03 X 10*3/uL (0.00-0.10); Basophils % (A) 0.4 %; Eosinophils # (A) 0.08 X 10*3/uL (0.04-0.35); Eosinophils % (A) 1.1 %; Monocytes % (A) 9.3 %; Neutrophils # (A) 5.77 X 10*3/uL (1.80-7.70); Neutrophils % (A) 76.8 %
[2020-08-17 11:40] LABS: HCT 23.6 % (37.2-46.3); HGB 6.8 g/dL (12.0-15.0); MCH 23.6 pg (27.0-32.0); MCHC 28.8 g/dL (32.0-37.0); MCV 81.9 fL (80.0-97.0); Platelet Count 172 X 10*3/uL (140-440); RBC 2.88 X 10*6/uL (4.10-5.20); RDW 14.6 % (11.5-14.5); WBC 7.51 X 10*3/uL (4.50-10.00)
[2020-08-17 11:41] LABS: Hypochromasia (M) 2+
[2020-08-17] MEDS ORDERED: MORPHINE SULFATE ER 15 MG TABLET PO PRN (11:42)
[2020-08-17] MEDS ORDERED: IPRATROPIUM-ALBUTEROL 3 ML NEB INHALATION PRN (11:53)
--- NOTE | 2020-08-17 12:58 | XR ---
EXAMINATION TYPE: XR chest 2V DATE OF EXAM: 08/17/2020 COMPARISON: Chest x-ray 11/28/2017 HISTORY: Pneumonia, fever TECHNIQUE: Frontal and lateral views of the chest are obtained. FINDINGS: There is questionable patchy density at the right gastric angle, no pleural effusion, or p neumothorax seen. The cardiac silhouette size is within normal limits. The osseous structures are intact. IMPRESSION: Difficult to exclude early airspace disease.
[2020-08-17] MEDS ORDERED: VANCOMYCIN 1,500 MG in SODIUM CHLORIDE 0.9% 250 ML IVPB SCH ×2 (14:00→18:00)
--- NOTE | 2020-08-17 14:04 | P.PN ---
Subjective Progress Note Date: 08/17/20 CHIEF COMPLAINT: Proctitis HISTORY OF PRESENT ILLNESS: Patient is uncomfortable she is complaining of lower abdominal pain as well as some rectal pain. She is followed by surgical service in regards to her proctitis. She is agreeable to colonoscopy during this admission. She's also requesting a EGD due to her history of hiatal hernia and acid reflux like symptoms. She has not had a bowel movement in 2 days. She did have some vomiting. She is also being followed by urology, oncology and radiation oncology oncology for cervical cancer with bilateral hydronephrosis. She has double-J catheters for the bilateral hydronephrosis. She is afebrile. White count is 7.5 one hemoglobin 6.8 platelets 172 her hematuria shows to be improving. Patient is scheduled for blood transfusion for hemoglobin is 6.8. PHYSICAL EXAM: VITAL SIGNS: Reviewed. GENERAL: Well-developed in no acute distress. HEENT: No sclera icterus. Extraocular movements grossly intact. Moist buccal mucosa. Head is atraumatic, normocephalic. ABDOMEN: Soft. Nondistended. NEUROLOGIC: Alert and oriented. Cranial nerves II through XII grossly intact. ASSESSMENT: 1. Proctitis 2. hiatal hernia 3. History of cervical cancer causing bilateral hydronephrosis PLAN: -Patient is scheduled for EGD and colonoscopy on , 08/20/[address] Rivera -Antibiotics per ID -Continue supportive care Physician Air Hoist Operator note has been reviewed by physician. Signing provider agrees with the documented findings, assessment, and plan of care. Objective - Vital Signs Vital signs: Vital Signs Temp 98.1 F 08/17/20 13:50 Pulse 94 08/17/20 13:50 Resp 19 08/17/20 13:50 BP 128/81 08/17/20 13:50 Pulse Ox 98 08/17/20 13:50 Intake & Output 08/16/20 08/17/20 08/17/20 18:59 06:59 18:59 Intake Total 200 450 Output Total 2325 1400 Balance 200 -1875 -1400 Intake: IV 100 100 Cefepime 2 gm In Sodium 100 100 Chloride 0.9% 100 ml @ 200 mls/hr IVPB Q12H [facility] Rx#:[id number] Intake, IV Titration 100 350 Amount Vancomycin 1,500 mg In 250 Sodium Chloride 0.9% 250 ml @ 125 mls/hr IVPB Q24H [facility] Rx#:[id number] metroNIDAZOLE-NS PMX 500 100 100 mg In Saline 1 100ml.bag @ 100 mls/hr IVPB Q8HR [facility] Rx#:[id number] Output: Urine 2325 1400 Uretheral (Carbone) 600 Other: Voiding Method Indwelling Catheter Indwelling Catheter Indwelling Catheter - Labs CBC & Chem 7: 08/17/20 06:36 08/17/20 06:36 Labs: Abnormal Lab Results - Last 24 Hours (Table) 08/17/20 08/17/20 08/17/20 Range/Units 06:36 06:36 06:36 RBC 2.88 L (4.10-5.20) X 10*6/uL Hgb 6.8 L* (12.0-15.0) g/dL Hct 23.6 L (37.2-46.3) % MCH 23.6 L (27.0-32.0) pg MCHC 28.8 L (32.0-37.0) g/dL RDW 14.6 H (11.5-14.5) % Est GFR (CKD-EPI)NonAf 54.9 L (60.0-200.0) Calcium 8.0 L (8.7-10.3) mg/dL Procalcitonin 1.16 H (0.02-0.09) ng/mL Microbiology - Last 24 Hours (Table) 08/14/20 14:39 Blood Culture Gram Stain - Final Blood Blood Culture - Final Diphtheroid species 08/15/20 18:35 Blood Culture - Preliminary Blood No Growth after 24 hours
--- NOTE | 2020-08-17 14:07 | P.PN ---
Subjective Principal diagnosis: Sepsis/UTI Locally advanced cervical cancer Bilateral hydronephrosis secondary to urinary obstruction secondary to locally advanced cervical cancer/hemorrhagic cystitis Arin-rectal density/Rectal wall thickening/proctitis 45-year-old female that presents to emergency with abdominal pain. She was recently diagnosed with cervical cancer. She notes that she self catheterizes for urinary retention. She presents emergency with abdominal pain nausea vomiting. She was in bed in pain and was unable to give accurate answers to examination questions. Patient had bilateral ureteral stents placed on 06/25/2020. She denied any chest pain shortness of breath headache fatigue hematochezia melena. White blood cells 15.1, urinalysis: Bloody, red blood cells greater than 182, white blood cells greater than 182. Cefepime and vancomycin ordered. KUB: Nonacute abdomen. The right ureteral stent appears more inferior than last exam. CT of the abdomen and pelvis: There is some minimal reticular nodular infiltrate at the lung bases. Extensive inflammatory changes in the pelvis with perirectal density measuring up to almost 3 cm in thickness. This is worse than last exam. Consider both inflammatory disease and malignancy. There is bilateral moderate hydronephrosis which appears to same or slightly worse than last exam. Stent malfunction is possible. There is increased reticular nodular interstitial infi ltrate the lung bases compared to old exam. 08/16/2020 Patient is seen and evaluated at room at bedside; complained of qtcv-zu-ryexspey distress secondary to uncontrolled pain; pain medications have been adjusted by oncology; patient continues to complain of abdominal pain but significantly improved from yesterday; no complaining of nausea vomiting; patient has a Carbone catheter in Vital signs are reviewed temperature of 98.1 with T-max of 102.4, pulse 118, respiration 18 and blood pressure of 104/64 with SpO2 of 93% on 3 L Laboratory review reveals a WBC of 7.2, hemoglobin of 7.5 and platelet count of 186; sodium of 139, potassium 4.5 and B UN/creatinine of 22/1.7; blood culture preliminary report reveals gram-positive bacillary; urine culture is negative so far Patient has been evaluated by oncology and is recommended to proceed with colonoscopy; continue with broad-spectrum IV antibiotic coverage with cefepime, Flagyl and vancomycin; patient will likely need to be treated with chemotherapy and radiation therapy for cervical cancer; radiation oncology to see patient and make recommendations Renal function is improving with creatinine down to 1.7 from 1.9 yesterday; we will continue with IV fluid hydration and monitor strict SHIRA's, daily weights, renal function and electrolytes; we will consult nephrology for management of renal function since patient need improved renal function prior to starting chemotherapy 08/17/2020 Patient is complaining of also complaining of hematuria patient's hemoglobin did drop to 6.8 we'll transfuse 1 unit of PRBC transfusion patient leukocytosis improved patient's creatinine is improving and presently 1.2. I spent significant amount of time counseling the patient and also explaining her pain patient will be started on long-acting opiate that is fentanyl patch and will continue with Austin as needed as well as morphine as needed but patient doesn't want morphine for pain. sodium to prophylaxis will be discontinued. After the chest x-ray unfortunately I am unable to view the images but was read as previously scheduled disease cannot be ruled out patient is wheezing on exam although patient is apparently ALLERGIC to steroids because of which are just started on inhalational treatments titrating well at 98% on 4 L of oxygen. Patient is not tachycardic anymore. Constitutional: Denied any fatigue denied any fever. Cardio vascular: denied any chest pain, palpitations Gastrointestinal denied any nausea vomiting Pulmonary: Complaining of shortness of breath Neurologic denied any new focal deficits All inpatient medications were reviewed and appropriate changes in these medications as dictated in the interval history and assessment and plan. Objective - Vital Signs Vital signs: Vital Signs Temp 98.1 F 08/17/20 13:50 Pulse 94 08/17/20 13:50 Resp 19 08/17/20 13:50 BP 128/81 08/17/20 13:50 Pulse Ox 98 08/17/20 13:50 Intake & Output 08/16/20 08/17/20 08/17/20 18:59 06:59 18:59 Intake Total 200 450 Output Total 2325 1400 Balance 200 -1875 -1400 Intake: IV 100 100 Cefepime 2 gm In Sodium 100 100 Chloride 0.9% 100 ml @ 200 mls/hr IVPB Q12H [facility] Rx#:[id number] Intake, IV Titration 100 350 Amount Vancomycin 1,500 mg In 250 Sodium Chloride 0.9% 250 ml @ 125 mls/hr IVPB Q24H [facility] Rx#:[id number] metroNIDAZOLE-NS PMX 500 100 100 mg In Saline 1 100ml.bag @ 100 mls/hr IVPB Q8HR [facility] Rx#:[id number] Output: Urine 2325 1400 Uretheral (Carbone) 600 Other: Voiding Method Indwelling Catheter Indwelling Catheter Indwelling Catheter - Exam PHYSICAL EXAMINATION: GENERAL: The patient is alert and oriented x3, not in any acute distress. Well developed, well nourished. HEENT: Pupils are round and equally reacting to light. EOMI. No scleral icterus. No conjunctival pallor. Normocephalic, atraumatic. No pharyngeal erythema. No thyromegaly. CARDIOVASCULAR: S1 and S2 present. No murmurs, rubs, or gallops. PULMONARY: Expiratory wheezing on exam ABDOMEN: Soft, nontender, nondistended, normoactive bowel sounds. No palpable organomegaly. MUSCULOSKELETAL: No joint swelling or deformity. EXTREMITIES: No cyanosis, clubbing, or pedal edema. NEUROLOGICAL: Gross neurological examination did not reveal any focal deficits. SKIN: No rashes. - Labs CBC & Chem 7: 08/17/20 06:36 08/17/20 06:36 Labs: Abnormal Lab Results - Last 24 Hours (Table) 08/17/20 08/17/20 08/17/20 Range/Units 06:36 06:36 06:36 RBC 2.88 L (4.10-5.20) X 10*6/uL Hgb 6.8 L* (12.0-15.0) g/dL Hct 23.6 L (37.2-46.3) % MCH 23.6 L (27.0-32.0) pg MCHC 28.8 L (32.0-37.0) g/dL RDW 14.6 H (11.5-14.5) % Est GFR (CKD-EPI)NonAf 54.9 L (60.0-200.0) Calcium 8.0 L (8.7-10.3) mg/dL Procalcitonin 1.16 H (0.02-0.09) ng/mL Microbiology - Last 24 Hours (Table) 08/14/20 14:39 Blood Culture Gram Stain - Final Blood Blood Culture - Final Diphtheroid species 08/15/20 18:35 Blood Culture - Preliminary Blood No Growth after 24 hours Assessment and Plan Plan: 1. Abdominal pain with perirectal density/thickness, patient is being treated for colitis. - CT abdomen reveals inflammatory changes and rectal area; possibly secondary to inflammation versus related to cervical cancer; will undergo colonoscopy. 2. Urinary obstruction/hydronephrosis; possible stent malfunctioning; urology on board and recommending a double-J catheter at this time; patient remains on IV antibiotics 3. Hemorrhagic Cystitis; patient is evaluated by urology and is recommending double-J catheters due to cervical cancer; continue with current antibiotics with further recommendations once urine culture results are available 4. Cervical cancer oncology evaluated the patient. Radiation oncology evaluated the patient as well. 5. Acute renal injury/ dehydration; continue with IV fluid hydration with normal saline at 75 mL an hour; monitor strict SHIRA's, daily weights, renal function and electrolytes; avoid nephrotoxins and hypotension kidney function is improving 6. Drop in hemoglobin probably secondary to hematuria: Acute blood loss and anemia from possible hematuria patient will transfuse 1 unit of PRBC transfusion 7. Shortness of breath: Probably secondary to COPD exacerbation patient will be started on inhalational treatments. 8. Pain management: Patient was started on longer acting opiate like fentanyl patch along with the Austin and oral morphine for breakthrough pain will try to wean off IV Dilaudid. DVT prophylaxis; SCDs CODE STATUS; full code
[2020-08-17] MEDS: IPRATROPIUM-ALBUTEROL 3 ML NEB INHALATION SCH ×3 (16:23→21:54)
--- NOTE | 2020-08-17 18:00 | CONS ---
CONSULTATION REASON FOR CONSULTATION: Renal failure. HISTORY OF PRESENT ILLNESS: The patient is a 45-year-old female with history of underlying cervical cancer with bilateral hydronephrosis. Patient has stage IIIB cervical carcinoma. She has had previous ureteral stents placed and she was admitted with complaints of increased weakness and pain and not feeling well. Patient also had fever, nausea and vomiting. Serum creatinine was 1.8 on initial admission, increased to 1.9, down to 1.7 today. Previous creatinine was 0.9 mg/dL. CT of the abdomen did show evidence of bilateral hydronephrosis. Patient states she feels a lot of pressure in the back and she feels that her stents may be blocked. She was evaluated by Dr. Whiteside, with no plans for intervention at this time. Antibiotics were started. PAST MEDICAL HISTORY: Stage IIIB cervical cancer, history of asthma, COPD, CVA, TIA, gastroesophageal reflux disease, seizure disorder, chronic back pain, eczema, psoriasis, varicose veins, ureteral stents, hydronephrosis. PAST SURGICAL HISTORY: Appendectomy, , ureteral stent placement. SOCIAL HISTORY: Negative for smoking, drug abuse or alcohol abuse. MEDICATIONS: Medications at home included morphine, Senna, lactulose, Dulcolax, Bactrim, [place]. ALLERGIES: Allergies are MULTIPLE. Please see list. REVIEW OF SYSTEMS: As per HPI. Other systems negative. PHYSICAL EXAMINATION: Patient is comfortable, awake, not in any acute distress. She is in mild pain, complaining of a lot of pressure in the lower back area, mostly on the right side. Blood pressure 117/76, heart rate 100 per minute. She is afebrile. EXAMINATION OF THE HEART: S1 and S2. EXAMINATION OF LUNGS: Decreased breath sounds at bases. ABDOMEN: Soft, non-tender. Examination of lower extremities shows no significant edema. CHEMICAL PROCESSOR exam is grossly intact. LABS: Sodium 139, potassium 4.5, chloride 107. CO2 is 23, BUN 22, creatinine 1.7. ASSESSMENT: 1. Acute kidney injury, acute tubular necrosis, with possible underlying obstructive uropathy as well. Patient is being followed by Urology. She may need intervention, as she is complaining of significant pain. Urine output is maintained. Patient has a Carbone catheter; 24-hour output was at about 2.3 L. Patient is maintained on IV fluids, which I will continue. No nephrotoxic agents on board. Patient was started on vancomycin, and I will discuss with Dr. Westfall regarding discontinuation of vancomycin. 2. Positive blood culture for diphtheroid species. Repeat cultures have all been negative. PLAN: Continue with IV fluids. Patient may need urological intervention. Avoid hypotension. Discontinue vancomycin. Thank you for this consultation. Will continue to follow the patient with you during her hospitalization. NISREEN / MAGDAN: [id number] /
[2020-08-17] MEDS: SENNOSIDES 8.6 MG TAB PO PRN (19:30)
[2020-08-17] MEDS ORDERED: SYMBICORT 160-4.5 MCG INHALER INHALATION SCH (20:00)
[2020-08-17] MEDS: FAMOTIDINE 20 MG TAB PO SCH (20:30)
[2020-08-17] MEDS ORDERED: BENZONATATE 100 MG CAP PO PRN (21:59)
[2020-08-17] MEDS: LACTULOSE 20 GM/30 ML CUP PO PRN (22:23)
--- NOTE | 2020-08-17 23:10 | PN ---
PROGRESS NOTE DATE OF SERVICE: 08/17/2020 REASON FOR FOLLOWUP: 1. Complicated UTI. 2. Proctitis. INTERVAL HISTORY: The patient is afebrile. She is still complaining of pain to the abdominal area. Still complaining of shortness of breath. Did have a cough which is mostly dry; cannot bring up any sputum. Admits to feeling nauseated, but no vomiting. No abdominal pain. No diarrhea; rather, the patient is constipated. PHYSICAL EXAMINATION: Blood pressure 118/68 with a pulse of 111, temperature 98.1. She is 90% on 2 L nasal cannula. General description is a middle-aged female up in the chair in no distress. RESPIRATORY SYSTEM: Unlabored breathing. Coarse breath sounds bilaterally. No wheeze. HEART: S1, S2. Regular rate and rhythm. ABDOMEN: Soft. No tenderness. EXTREMITIES: No edema of the feet. LABS: Hemoglobin 6.9, white count 7.51. BUN of 17, creatinine 1.2. DIAGNOSTIC IMPRESSION AND PLAN: Patient admitted to hospital with multiple symptoms, including abdominal pain and vomiting in this patient who did have evidence of bilateral hydronephrosis with a history of cervical cancer and proctitis. The patient's white count responded to cefepime and Flagyl; to continue. No need for vancomycin. That will be discontinued. The patient did have a significant cough. Will add Tessalon Perles for symptomatic relief and monitor clinical course closely. MMODL / IJN: [id number] /
[2020-08-18] MEDS: ONDANSETRON 4 MG/2 ML VIAL IVP PRN (01:03)
[2020-08-18] MEDS: HYDROmorphone 2 MG/ML 1 ML SYRINGE IVP PRN ×5 (01:59→14:03)
[2020-08-18] MEDS: HYDROcodone/APAP 10-325MG 1 EACH TAB PO PRN ×5 (03:08→20:30)
[2020-08-18] MEDS: LIDOCAINE 5% OINTMENT 50 GM JAR TOPICAL PRN (04:36)
[2020-08-18] MEDS: metroNIDAZOLE-NS PMX 500 MG in SALINE 1 100ML.BAG IVPB SCH ×2 (07:11→15:38)
[2020-08-18] MEDS: FAMOTIDINE 20 MG TAB PO SCH ×2 (07:21→20:29)
[2020-08-18 07:46] LABS: Basophils # (A) 0.1 k/uL (0-0.2); Basophils % (A) 1 %; Eosinophils % (A) 0 %; HGB 9.2 gm/dL (11.4-16.0); Hypochromasia Marked; Lymphocytes % (A) 10 %; MCH 24.6 pg (25.0-35.0); MCHC 30.6 g/dL (31.0-37.0); MCV 80.4 fL (80.0-100.0); Mean Platelet Volume 8.8; Monocytes # (A) 0.6 k/uL (0-1.0); Monocytes % (A) 5 %; Neutrophils # (A) 8.5 k/uL (1.3-7.7); Neutrophils % (A) 82 %; Platelet Count 195 k/uL (150-450); Poikilocytosis Slight; RBC 3.73 m/uL (3.80-5.40); RDW 14.7 % (11.5-15.5); WBC 10.4 k/uL (3.8-10.6)
[2020-08-18 07:50] LABS: African American GFR (CKD) 49 (>60 ml/min/1.73 sqM); Anion Gap 10 mmol/L; Blood Urea Nitrogen 16 mg/dL (7-17); Carbon Dioxide 23 mmol/L (22-30); Chloride 104 mmol/L (98-107); Glucose 128 mg/dL (74-99); Non-African American GFR(CKD) 43 (>60 ml/min/1.73 sqM); Potassium 4.5 mmol/L (3.5-5.1); Sodium 137 mmol/L (137-145)
[2020-08-18] MEDS: IPRATROPIUM-ALBUTEROL 3 ML NEB INHALATION SCH ×4 (08:10→20:37)
--- NOTE | 2020-08-18 08:21 | P.CONS ---
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 She has not yet initiated treatment, and presented to the emergency room on August 14 complaining of abdominal pain, nausea and vomiting. The patient's oncologic history began this past June when she presented with low back pain and constipation. A CT scan of the abdomen and pelvis performed on June 16 revealed left-sided hydronephrosis with enlargement of the posterior uterine fundus worrisome for possible tumor. The patient was discharged and recommended a follow-up as an outpatient with urology and gynecology. She returned to the hospital on June 25, 2020 and had a bilateral ureter stent placement under the care of Dr. Kelly. She states that she subsequently was seen by her computer tech in [place], and was recommended to follow-up with gynecology oncology. She states that unfortunately due to some insurance issues her referral to Dr. Peña was slowed down. We are requesting the records from [facility], but the patient reports she had a biopsy and PET/CT in the last couple of weeks at [facility]. She has been informed that this is a stage IIIB cancer of the cervix. The patient reports that she has developed difficulty voiding over the past few weeks. She presented to the ER on August 06, 2020 with pain and inability to void. She had a Carbone placed with 500 cc residual found. She states that the Carbone catheter has been causing her quite a bit of pain, and therefore she was doing intermittent catheterization at home. She presented again to the ER on August 14 secondary to abdominal pain, nausea and vomiting. She states that she tried taking a new morphine medication and shortly after felt febrile and vomited. Repeat CT scan of the chest from August 14 revealed some nodular infiltrate in the bilateral lung bases, enlarged spleen, bilateral hydronephrosis with stents in good placement with extensive presacral increasing density noted. The patient states she was able to remove her catheter earlier today but continues to have blood in the urine. She is still having some right-sided flank and abdominal pain. She states that unfortunately she had a traumatic catheter removal a few days ago. Of note, the patient is getting a transfusion today for low hemoglobin, and her recent creatinine is 1.45. Review of Systems Constitutional: Denies chills, Denies fever Eyes: denies blurred vision Ears, nose, mouth and throat: Denies headache Cardiovascular: Denies chest pain Respiratory: Denies cough, Denies hemoptysis Gastrointestinal: Reports abdominal pain, Reports change in bowel habits Genitourinary: Reports flank pain, Reports hematuria Integumentary: Denies rash Neurological: Denies aphasia, Denies confusion Psychiatric: Reports difficulty concentrating, Denies anxiety, Denies confusion Past Medical History Past Medical History: Asthma, COPD, CVA/TIA, GERD/Reflux, Seizure Disorder, Skin Disorder Additional Past Medical History / Comment(s): TIA, brain bleed 2008. Hx seizure poss R/T Rx, 2012. 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 Fell 02/2020 w/ dislocation hip, bruised tailbone. Ezcema, psoriasis, rosacea. Recent constipation, c/o pain mid back/flank area. Varicose veins,kidney stents 06/29/20 History of Any Multi-Drug Resistant Organisms: MRSA Year Discovered:: 2010 MDRO Source:: uterus Past Surgical History: Appendectomy, Section Additional Past Surgical History / Comment(s): 2 D&C, 2008 Past Anesthesia/Blood Transfusion Reactions: Previous Problems w/ Anesthesia, Motion Sickness Additional Past Anesthesia/Blood Transfusion Reaction / Comm: Reaction 2004 w/ D&C heart rate ecelerated, blood pressure bottomed out, uncontrolled; with C-S spinal block paralyzed lung, stopped breathing. Novocain caused leg tremors w/ dental work. Requesting Ativan in pre-op D/T anxiousness. Past Psychological History: ADD/ADHD, Anxiety, PTSD Additional Psychological History / Comment(s): states that PTSD was treated Smoking Status: Never smoker Past Alcohol Use History: None Reported Additional Past Alcohol Use History / Comment(s): smoked 2 cartons of cigarettes in 1 day 2000 Past Drug Use History: None Reported - Past Family History Father Family Medical History: Cancer, Deep Vein Thrombosis (DVT) Additional Family Medical History / Comment(s): thyroid goiter, poss cancer Medications and Allergies Home Medications Medication Instructions Recorded Confirmed Type Morphine Sulfate ER [Ms Contin] 15 mg PO Q12HR PRN 08/06/20 08/14/20 History Sennosides [Senna] 8.6 mg PO BID PRN 08/06/20 08/14/20 History Lactulose 20 gm PO BID PRN #900 ml 08/09/20 08/14/20 Rx bisacodyL [Dulcolax] 10 mg RECTAL DAILY PRN #12 supp 08/09/20 08/14/20 Rx Sulfamethox-Tmp 800-160Mg [Bactrim 1 tab PO Q12HR #20 tab 08/13/20 08/14/20 Rx DS 800-160 mg] HYDROcodone/APAP 10-325MG [[place] 1 tab PO Q4HR PRN 08/14/20 08/14/20 History 10-325] Lidocaine 5% Oint [Xylocaine 5% 1 applic TOPICAL DAILY PRN 08/14/20 08/14/20 History Oint] Allergies Allergy/AdvReac Type Severity Reaction Status Date / Time shellfish derived [Shellfish] Allergy Mild Swelling, Verified 08/14/20 19:18 nausea ciprofloxacin [From Cipro] Allergy Anaphylaxis Verified 08/14/20 19:18 coconut Allergy Anaphylaxis Verified 08/14/20 19:18 Fish Containing Products Allergy Anaphylaxis Verified 08/14/20 19:18 [Fish] fluticasone Allergy Anaphylaxis Verified 08/14/20 19:18 [From Flovent Diskus] honey Allergy Swelling Verified 08/14/20 19:18 Iodinated Contrast Media Allergy Swelling Verified 08/14/20 19:18 [Iodinated Contrast Media - IV Dye] iodine Allergy Swelling Verified 08/14/20 19:18 lamotrigine [From Lamictal] Allergy Anaphylaxis, Verified 08/14/20 19:18 seizures, hives latex Allergy Rash/Hives, Verified 08/14/20 19:18 dyspnea medroxyprogesterone Allergy Unknown Verified 08/14/20 19:18 [From Depo-Provera] naproxen Allergy Rash/Hives Verified 08/14/20 19:18 nitrofurantoin Allergy Rash/Hives Verified 08/14/20 19:18 [From Macrobid] oxcarbazepine Allergy Unknown Verified 08/14/20 19:18 [From Trileptal] oxycodone [From Percocet] Allergy Anaphylaxis Verified 08/14/20 19:18 Penicillins Allergy Anaphylaxis Verified 08/14/20 19:18 Quinolones Allergy Dyspnea Verified 08/14/20 19:18 talc Allergy Dyspnea Verified 08/14/20 19:18 topiramate [From Topamax] Allergy Rash/Hives, Verified 08/14/20 19:18 seizures venom-honey bee Allergy Anaphylaxis Verified 08/14/20 19:18 [bee venom (honey bee)] venom-wasp [wasp venom] Allergy Anaphylaxis Verified 08/14/20 19:18 codeine AdvReac Vomiting Verified 08/14/20 19:18 diphenhydramine AdvReac Unknown Verified 08/14/20 19:18 [From Benadryl] divalproex sodium AdvReac Unknown Verified 08/14/20 19:18 [From Depakote] erythromycin base AdvReac Unknown Verified 08/14/20 19:18 paroxetine [From Paxil] AdvReac suicidal Verified 08/14/20 19:18 procaine [From Novocain] AdvReac Unknown Verified 08/14/20 19:18 Physical Exam Vitals: Vital Signs Temp Pulse Pulse Resp BP BP Pulse Ox 08/18/20 02:00 97.9 F 107 H 22 117/74 95 08/17/20 22:10 61 128/70 97 08/17/20 22:09 92 08/17/20 22:00 96 08/17/20 20:00 111 H 18 08/17/20 19:42 98.1 F 111 H 18 118/68 90 L 08/17/20 18:34 98.2 F 102 H 16 113/73 08/17/20 16:38 88 08/17/20 16:25 84 08/17/20 16:13 97.9 F 99 16 131/82 08/17/20 15:43 97.9 F 95 16 101/68 95 08/17/20 15:34 100 08/17/20 15:33 97.6 F 99 16 119/80 08/17/20 13:50 98.1 F 94 19 128/81 98 Intake and Output 08/17/20 08/18/20 08/18/20 22:59 06:59 14:59 Intake Total 310 1300 Output Total 725 700 Balance -415 600 Intake: Intake, IV Titration 1300 Amount Sodium Chloride 0.9% 1, 1200 000 ml @ 100 mls/hr IV . Q10H [facility] Rx#:[id number] metroNIDAZOLE-NS PMX 500 100 mg In Saline 1 100ml.bag @ 100 mls/hr IVPB Q8HR [facility] Rx#:[id number] Blood Product 310 Rc As-1 Unit 310 [id number] Output: Urine 725 700 Other: Voiding Method Toilet Bedside Commode - Constitutional General appearance: no acute distress - EENT Eyes: edentulous, PERRLA ENT: hard of hearing - Neck Neck: no lymphadenopathy - Respiratory Respiratory: bilateral: CTA - Cardiovascular Rhythm: regular - Gastrointestinal General gastrointestinal: no distended, soft, no tenderness - Integumentary Integumentary: pale, no rash - Neurologic Neurologic: CNII-XII intact - Musculoskeletal Musculoskeletal: strength equal bilaterally - Psychiatric Psychiatric: A&O x's 3, appropriate affect Results CBC & Chem 7: 08/18/20 07:19 08/18/20 07:19 Labs: Abnormal Lab Results - Last 24 Hours (Table) 08/17/20 08/17/20 08/17/20 Range/Units 06:36 06:36 06:36 RBC 2.88 L (4.10-5.20) X 10*6/uL Hgb 6.8 L* (12.0-15.0) g/dL Hct 23.6 L (37.2-46.3) % MCH 23.6 L (27.0-32.0) pg MCHC 28.8 L (32.0-37.0) g/dL RDW 14.6 H (11.5-14.5) % Neutrophils # (1.3-7.7) k/uL Creatinine (0.52-1.04) mg/dL Est GFR (CKD-EPI)NonAf 54.9 L (60.0-200.0) Glucose (74-99) mg/dL Calcium 8.0 L (8.7-10.3) mg/dL Procalcitonin 1.16 H (0.02-0.09) ng/mL Crossmatch 08/17/20 08/18/20 08/18/20 Range/Units 12:48 07:19 07:19 RBC 3.73 L (4.10-5.20) X 10*6/uL Hgb 9.2 L (12.0-15.0) g/dL Hct 30.0 L (37.2-46.3) % MCH 24.6 L (27.0-32.0) pg MCHC 30.6 L (32.0-37.0) g/dL RDW (11.5-14.5) % Neutrophils # 8.5 H (1.3-7.7) k/uL Creatinine 1.49 H (0.52-1.04) mg/dL Est GFR (CKD-EPI)NonAf (60.0-200.0) Glucose 128 H (74-99) mg/dL Calcium (8.7-10.3) mg/dL Procalcitonin (0.02-0.09) ng/mL Crossmatch See Detail Microbiology - Last 24 Hours (Table) 08/15/20 18:35 Blood Culture - Preliminary Blood No Growth after 48 hours 08/14/20 14:39 Blood Culture Gram Stain - Final Blood Blood Culture - Final Diphtheroid species CT scan - abdomen: report reviewed, image reviewed CT scan - pelvis: report reviewed, image reviewed Assessment and Plan Assessment: The patient is a 45-year-old female recently diagnosed with at least a clinical 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 She has not yet initiated treatment, and presented to the emergency room on August 14 complaining of abdominal pain, nausea and vomiting. Plan: 1. Cervical cancer - stage IIIB at least: as detailed above, I had a long discussion with the patient regarding the next steps in her care. I explained the typically stage III cervical cancer is treated with concurrent chemoradiation followed by brachytherapy boost. We are hoping for continued improvement with the patient's kidney function, as her creatinine was elevated to 1.9 and has improved to 1.45 during her hospital stay. She continues to have difficulty with voiding requiring intermittent catheterization, however she states she was able to void today after removal of her Carbone. The patient has had intermittent difficulty with constipation as well. It is unclear if this constipation is due to her increasing pain medications or possibly from mass effect/invasion of the rectum by tumor. The patient is tentatively scheduled for colonoscopy this week. I will request her outside reports from [facility]. I discussed with the patient that during this hospital stay, we will likely have her undergo CT simulation for treatment planning. I discussed with the patient that we should aim for starting her treatment as soon as possible. She has a lot of difficulty with MRI - may need open MRI later in treatment course for brachytherapy planning. Time with Patient: Greater than 30
[2020-08-18] MEDS: SODIUM CHLORIDE 0.9% 1,000 ML IV SCH ×2 (11:00→20:28)
[2020-08-18] MEDS ORDERED: LACTULOSE 20 GM/30 ML CUP PO ONE (11:01)
[2020-08-18] MEDS: DOCUSATE 100 MG CAP PO SCH ×2 (11:13→20:29)
[2020-08-18] MEDS: CEFEPIME 2 GM in SODIUM CHLORIDE 0.9% 100 ML IVPB SCH ×2 (11:44→20:29)
--- NOTE | 2020-08-18 12:50 | PN ---
PROGRESS NOTE The patient is seen for followup for acute kidney injury. She has history of metastatic cervical cancer with bilateral hydronephrosis status post ureteral stents. Renal function had not improved initially with creatinine staying at about 1.9-1.7, and patient was complaining of significant pain and fullness on her right flank area. Therefore, there was concern for possible need for intervention for the ureteral stents. However, serum creatinine did come down to 1.2 yesterday and it is at 1.49 today. Overall, patient states she is feeling slightly better, although she continues to complain of pressure and fullness on the right flank area. PHYSICAL EXAMINATION: On examination today, blood pressure is 127/81, heart rate 105 per minute. She is afebrile. EXAMINATION OF THE HEART: S1, S2. EXAMINATION OF THE LUNGS: Decreased breath sounds at bases. Abdomen is soft, nontender. There is some mild tenderness noted in the right flank area. Examination of lower extremities shows no significant edema. FABRIC DESIGNER exam grossly intact. LABS: Labs show hemoglobin 9.2, sodium 137, potassium 4.5, BUN of 16, creatinine 1.49. ASSESSMENT: 1. Acute kidney injury, acute tubular necrosis, possible obstructive uropathy however serum creatinine had improved down to 1.2 without any intervention. Therefore, I believe this is mostly related to some degree of volume depletion and acute tubular necrosis. Continue with IV fluids. Her creatinine is back up to 1.49 today, possibly related to the severe anemia with hemoglobin of 6.8 g/dL yesterday. The patient continues to have good urine output. I will continue with IV fluids for now. 2. cervical cancer being followed by Heme-Onc with plans for chemotherapy down the road. 3. Positive blood cultures for diphtheroid species. Repeat blood cultures are negative. PLAN: Continue with IV fluids. Continue to avoid nephrotoxic agents. Repeat labs in a.m. MMODL / IJN: [id number] /
--- NOTE | 2020-08-18 14:09 | P.PN ---
Subjective Progress Note Date: 08/18/20 Principal diagnosis: Cervical Cancer Initial presentation with abdominal pain. Diagnosed with cervical cancer in June. She self catheterizes for urinary retention. Admits to Nausea and vomiting as well, which is improved since admission - Patient had bilateral ureteral stents placed on 06/25/2020. IV Antibiotics KUB: Nonacute abdomen. The right ureteral stent appears more inferior than last exam. CT of the abdomen and pelvis: There is some minimal reticular nodular infiltrate at the lung bases. Extensive inflammatory changes in the pelvis with perirectal density measuring up to almost 3 cm in thickness. This is worse than last exam. Consider both inflammatory disease and malignancy. There is bilateral moderate hydronephrosis which appears to same or slightly worse than last exam. Stent malfunction is possible. There is increased reticular nodular interstitial infiltrate the lung bases compared to old exam. Objective - Vital Signs Vital signs: Vital Signs Temp 97.9 F 08/18/20 08:00 Pulse 105 H 08/18/20 08:00 Resp 18 08/18/20 08:00 BP 127/81 08/18/20 08:00 Pulse Ox 97 08/18/20 08:00 Intake & Output 08/17/20 08/18/20 08/18/20 18:59 06:59 18:59 Intake Total 310 1300 Output Total 2325 700 400 Balance -2014 600 -400 Intake: Intake, IV Titration 1300 Amount Sodium Chloride 0.9% 1, 1200 000 ml @ 100 mls/hr IV . Q10H [facility] Rx#:[id number] metroNIDAZOLE-NS PMX 500 100 mg In Saline 1 100ml.bag @ 100 mls/hr IVPB Q8HR [facility] Rx#:[id number] Blood Product 310 Rc As-1 Unit 310 [id number] Output: Urine 2325 700 400 Uretheral (Carbone) 600 Other: Voiding Method Indwelling Catheter Toilet Bedside Commode - Exam - Constitutional General appearance: no acute distress - EENT Eyes: edentulous, PERRLA ENT: hard of hearing - Neck Neck: no lymphadenopathy - Respiratory Respiratory: bilateral: CTA - Cardiovascular Rhythm: regular - Gastrointestinal General gastrointestinal: no distended, soft, no tenderness - Integumentary Integumentary: pale, no rash - Neurologic Neurologic: CNII-XII intact - Musculoskeletal Musculoskeletal: strength equal bilaterally - Psychiatric Psychiatric: A&O x's 3, appropriate affect - Labs CBC & Chem 7: 08/18/20 07:19 08/18/20 17:49 Labs: Abnormal Lab Results - Last 24 Hours (Table) 08/17/20 08/18/20 08/18/20 Range/Units 12:48 07:19 07:19 RBC 3.73 L (3.80-5.40) m/uL Hgb 9.2 L (11.4-16.0) gm/dL Hct 30.0 L (34.0-46.0) % MCH 24.6 L (25.0-35.0) pg MCHC 30.6 L (31.0-37.0) g/dL Neutrophils # 8.5 H (1.3-7.7) k/uL Creatinine 1.49 H (0.52-1.04) mg/dL Glucose 128 H (74-99) mg/dL Crossmatch See Detail Microbiology - Last 24 Hours (Table) 08/15/20 18:35 Blood Culture - Preliminary Blood No Growth after 48 hours 08/14/20 14:39 Blood Culture Gram Stain - Final Blood Blood Culture - Final Diphtheroid species Assessment and Plan Plan: Initial presentation with abdominal pain. Diagnosed with cervical cancer in June. She self catheterizes for urinary retention. Admits to Nausea and vomiting as well, which is improved since admission - Patient had bilateral ureteral stents placed on 06/25/2020. IV Antibiotics KUB: Nonacute abdomen. The right ureteral stent appears more inferior than last exam. CT of the abdomen and pelvis: There is some minimal reticular nodular infiltrate at the lung bases. Extensive inflammatory changes in the pelvis with perirectal density measuring up to almost 3 cm in thickness. This is worse than last exam. Consider both inflammatory disease and malignancy. There is bilateral moderate hydronephrosis which appears to same or slightly worse than last exam. Stent malfunction is possible. There is increased reticular nodular interstitial infiltrate the lung bases compared to old exam. 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 - She has not started treatment Plan: - Continue supportive care per urilogy and primary team while in hospital and plan to follow-up with Dr. Joyner or Dr. Paula as outpatient as soon as possible to intiate treatment - She seen while in hospital as well as treatment plan likely be chemo and radiation concurrent - She will likely require repeat restaging given the worsening picture on CT and length of time from diagnosis to now. - Renal Function has been labile while admitted, monitor closely for improvement, self cath and urine residual - Reports requested from [facility]
--- NOTE | 2020-08-18 14:48 | P.PN ---
Subjective Progress Note Date: 08/18/20 CHIEF COMPLAINT: Proctitis HISTORY OF PRESENT ILLNESS: Surgical service is following regards to patient's proctitis. Patient is complaining of constipation. She states it's been 2 days since her last bowel movement. She is passing gas. Her Carbone catheter came out she is no longer having hematuria. She is complaining still of some right-sided abdominal pain and is scheduled for EGD and colonoscopy on . She is tolerating regular diet. Afebrile. WBC 10.4 hemoglobin 9.2. Patient seen and examined with Dr. arguelles PHYSICAL EXAM: VITAL SIGNS: Reviewed. GENERAL: Well-developed in no acute distress. HEENT: No sclera icterus. Extraocular movements grossly intact. Moist buccal mucosa. Head is atraumatic, normocephalic. ABDOMEN: Soft. Mildly distended with right-sided tenderness NEUROLOGIC: Alert and oriented. Cranial nerves II through XII grossly intact. ASSESSMENT: 1. Proctitis 2. hiatal hernia 3. History of cervical cancer causing bilateral hydronephrosis PLAN: -We'll give 1 dose of lactulose and start Colace for constipation -Patient is scheduled for EGD and colonoscopy on , 08/20/[address] Arguelles -Antibiotics per ID -Continue supportive care Physician Shop Laborer note has been reviewed by physician. Signing provider agrees with the documented findings, assessment, and plan of care. Objective - Vital Signs Vital signs: Vital Signs Temp 97.6 F 08/18/20 14:00 Pulse 100 08/18/20 14:00 Resp 18 08/18/20 14:00 BP 124/81 08/18/20 14:00 Pulse Ox 90 L 08/18/20 14:00 Intake & Output 08/17/20 08/18/20 08/18/20 18:59 06:59 18:59 Intake Total 310 1300 540 Output Total 2325 700 400 Balance -2014 600 140 Intake: Intake, IV Titration 1300 Amount Sodium Chloride 0.9% 1, 1200 000 ml @ 100 mls/hr IV . Q10H ISABEL Rx#:[id number] metroNIDAZOLE-NS PMX 500 100 mg In Saline 1 100ml.bag @ 100 mls/hr IVPB Q8HR ISABEL Rx#:[id number] Oral 540 Blood Product 310 Rc As-1 Unit 310 [id number] Output: Urine 2325 700 400 Uretheral (Carbone) 600 Other: Voiding Method Indwelling Catheter Toilet Bedside Commode # Bowel Movements 1 - Labs CBC & Chem 7: 08/18/20 07:19 08/18/20 07:19 Labs: Abnormal Lab Results - Last 24 Hours (Table) 08/17/20 08/18/20 08/18/20 Range/Units 12:48 07:19 07:19 RBC 3.73 L (3.80-5.40) m/uL Hgb 9.2 L (11.4-16.0) gm/dL Hct 30.0 L (34.0-46.0) % MCH 24.6 L (25.0-35.0) pg MCHC 30.6 L (31.0-37.0) g/dL Neutrophils # 8.5 H (1.3-7.7) k/uL Creatinine 1.49 H (0.52-1.04) mg/dL Glucose 128 H (74-99) mg/dL Crossmatch See Detail Microbiology - Last 24 Hours (Table) 08/15/20 18:35 Blood Culture - Preliminary Blood No Growth after 48 hours 08/14/20 14:39 Blood Culture Gram Stain - Final Blood Blood Culture - Final Diphtheroid species
--- NOTE | 2020-08-18 15:49 | P.PN ---
Progress Note - Text Progress Note Date: 08/18/20 The patient is voiding spontaneously but emptying her bladder incompletely. She was very uncomfortable with an indwelling Carbone catheter. Therefore, we'll be my recommendation that she be straight catheterized when she empties her bladder incompletely. Also, she will perform intermittent self-catheterization at home, so she may benefit from catheterization instruction.
--- NOTE | 2020-08-18 16:58 | P.PN ---
Subjective Progress Note Date: 08/18/20 Sepsis/UTI Locally advanced cervical cancer Bilateral hydronephrosis secondary to urinary obstruction secondary to locally advanced cervical cancer/hemorrhagic cystitis Arin-rectal density/Rectal wall thickening/proctitis 45-year-old female that presents to emergency with abdominal pain. She was recently diagnosed with cervical cancer. She notes that she self catheterizes for urinary retention. She presents emergency with abdominal pain nausea vomiting. She was in bed in pain and was unable to give accurate answers to examination questions. Patient had bilateral ureteral stents placed on 06/02. She denied any chest pain shortness of breath headache fatigue hematochezia melena. White blood cells 15.1, urinalysis: Bloody, red blood cells greater than 182, white blood cells greater than 182. Cefepime and vancomycin ordered. KUB: Nonacute abdomen. The right ureteral stent appears more inferior than last exam. CT of the abdomen and pelvis: There is some minimal reticular nodular infiltrate at the lung bases. Extensive inflammatory changes in the pelvis with perirectal density measuring up to almost 3 cm in thickness. This is worse than last exam. Consider both inflammatory disease and malignancy. There is bilateral moderate hydronephrosis which appears to same or slightly worse than last exam. Stent malfunction is possible. There is increased reticular nodular interstitial infiltrate the lung bases compared to old exam. 08/16/2020 Patient is seen and evaluated at room at bedside; complained of [id number] distress secondary to uncontrolled pain; pain medications have been adjusted by oncology; patient continues to complain of abdominal pain but significantly improved from yesterday; no complaining of nausea vomiting; patient has a Carbone catheter in Vital signs are reviewed temperature of 98.1 with T-max of 102.4, pulse 118, respiration 18 and blood pressure of 104/64 with SpO2 of 93% on 3 L Laboratory review reveals a WBC of 7.2, hemoglobin of 7.5 and platelet count of 186; sodium of 139, potassium 4.5 and B UN/creatinine of 22/1.7; blood culture preliminary report reveals gram-positive bacillary; urine culture is negative so far Patient has been evaluated by oncology and is recommended to proceed with colonoscopy; continue with broad-spectrum IV antibiotic coverage with cefepime, Flagyl and vancomycin; patient will likely need to be treated with chemotherapy and radiation therapy for cervical cancer; radiation oncology to see patient and make recommendations Renal function is improving with creatinine down to 1.7 from 1.9 yesterday; we will continue with IV fluid hydration and monitor strict SHIRA's, daily weights, renal function and electrolytes; we will consult nephrology for management of renal function since patient need improved renal function prior to starting chemotherapy 08/17/2020 Patient is complaining of also complaining of hematuria patient's hemoglobin did drop to 6.8 we'll transfuse 1 unit of PRBC transfusion patient leukocytosis improved patient's creatinine is improving and presently 1.2. I spent significant amount of time counseling the patient and also explaining her pain patient will be started on long-acting opiate that is fentanyl patch and will continue with [place] as needed as well as morphine as needed but patient doesn't want morphine for pain. sodium to prophylaxis will be discontinued. Aft er the chest x-ray unfortunately I am unable to view the images but was read as previously scheduled disease cannot be ruled out patient is wheezing on exam although patient is apparently ALLERGIC to steroids because of which are just started on inhalational treatments titrating well at 98% on 4 L of oxygen. Patient is not tachycardic anymore. 08/18/2020 Patient is seen in follow-up continues to have multiple complaints of pain and is extremely tearful of her current situation. Patient has had Carbone catheter removed and states she voided and will continue straight catheter if unable to empty the bladder. Urology has evaluated the patient. Multiple medical consultations including surgery, oncology, nephrology, radiation oncology, and infectious disease following. is continued on IV antibiotics in the form of a for pain and Flagyl and will continue at this time. Repeat urine cultures and blood cultures have remained negative. Patient's hemoglobin is 9.2 today status post 1 unit of PRBCs yesterday, white blood count is 10.4, sodium is 137 with a potassium of 4.5. Current creatinine slightly worsened at 1.49 and nephrology is following. Continue with IV fluids at this time. And will repeat labs. Patient continues to have constipation and will continue with lactulose and Colace. Patient is scheduled tentatively to have an EGD and colonoscopy on and will likely start the bowel prep tomorrow. Patient continues to have severe pain and has multiple narcotic medications on board and will discontinue 2 mg of Dilaudid every 3 hours at this time. Patient does have MS Contin and fentanyl on board as well and oncology is following. Constitutional: Denied any fatigue denied any fever. Cardio vascular: denied any chest pain, palpitations Gastrointestinal denied any nausea vomiting Pulmonary: Complaining of shortness of breath Neurologic denied any new focal deficits All inpatient medications were reviewed and appropriate changes in these medications as dictated in the interval history and assessment and plan. Objective - Vital Signs Vital signs: Vital Signs Temp 97.9 F 08/18/20 08:00 Pulse 105 H 08/18/20 08:00 Resp 18 08/18/20 08:00 BP 127/81 08/18/20 08:00 Pulse Ox 97 08/18/20 08:00 Intake & Output 08/17/20 08/18/20 08/18/20 18:59 06:59 18:59 Intake Total 310 1300 Output Total 2325 700 400 Balance -2014 600 -400 Intake: Intake, IV Titration 1300 Amount Sodium Chloride 0.9% 1, 1200 000 ml @ 100 mls/hr IV . Q10H ISABEL Rx#:[id number] metroNIDAZOLE-NS PMX 500 100 mg In Saline 1 100ml.bag @ 100 mls/hr IVPB Q8HR ISABEL Rx#:[id number] Blood Product 310 Rc As-1 Unit 310 [id number] Output: Urine 2325 700 400 Uretheral (Carbone) 600 Other: Voiding Method Indwelling Catheter Toilet Bedside Commode - Exam GENERAL: The patient is alert and oriented x3, not in any acute distress. Well developed, well nourished. HEENT: Pupils are round and equally reacting to light. EOMI. No scleral icterus. No conjunctival pallor. Normocephalic, atraumatic. No pharyngeal erythema. No thyromegaly. CARDIOVASCULAR: S1 and S2 present. No murmurs, rubs, or gallops. PULMONARY: Expiratory wheezing on exam ABDOMEN: Soft, nontender, nondistended, normoactive bowel sounds. No palpable organomegaly. MUSCULOSKELETAL: No joint swelling or deformity. EXTREMITIES: No cyanosis, clubbing, or pedal edema. NEUROLOGICAL: Gross neurological examination did not reveal any focal deficits. SKIN: No rashes. - Labs CBC & Chem 7: 08/18/20 07:19 08/18/20 07:19 Labs: Abnormal Lab Results - Last 24 Hours (Table) 08/17/20 08/18/20 08/18/20 Range/Units 12:48 07:19 07:19 RBC 3.73 L (3.80-5.40) m/uL Hgb 9.2 L (11.4-16.0) gm/dL Hct 30.0 L (34.0-46.0) % MCH 24.6 L (25.0-35.0) pg MCHC 30.6 L (31.0-37.0) g/dL Neutrophils # 8.5 H (1.3-7.7) k/uL Creatinine 1.49 H (0.52-1.04) mg/dL Glucose 128 H (74-99) mg/dL Crossmatch See Detail Microbiology - Last 24 Hours (Table) 08/15/20 18:35 Blood Culture - Preliminary Blood No Growth after 48 hours 08/14/20 14:39 Blood Culture Gram Stain - Final Blood Blood Culture - Final Diphtheroid species Assessment and Plan Assessment: -Abdominal pain with perirectal density/thickness, patient is being treated for colitis. CT abdomen reveals inflammatory changes and rectal area; possibly secondary to inflammation versus related to cervical cancer; patient scheduled to undergo colonoscopy and EGD was surgery on . -Urinary obstruction/hydronephrosis; possible stent malfunctioning; urology on board and recommending a double-J catheter at this time; patient remains on IV antibiotics, indwelling Carbone catheter removed and patient will continue straight cath as she was having continued pain from the indwelling Carbone catheter. -Hemorrhagic Cystitis; patient was evaluated by urology and is recommending double-J catheters due to cervical cancer; continue with current antibiotics with further recommendations once urine culture results are available -Cervical cancer oncology evaluated the patient. Radiation oncology evaluated the patient as well. -Acute renal injury/ dehydration; continue with IV fluid hydration with normal saline at 75 mL an hour; monitor strict SHIRA's, daily weights, renal function and electrolytes; avoid nephrotoxins and hypotension. Creatinine slightly worse today and will continue with IV hydration and nephrology is following -Drop in hemoglobin probably secondary to hematuria: Acute blood loss and anemia from possible hematuria, patient is status post 1 unit of PRBCs with no further bleeding noted in hemoglobin today is 9.2 -Shortness of breath: Probably secondary to COPD exacerbation patient will be started on inhalational treatments. -Pain management: Patient was started on longer acting opiate fentanyl patch along with the [place] and oral morphine for breakthrough pain will try to wean of f IV Dilaudid. -DVT prophylaxis -GI prophylaxis -Full code Plan: Continue current medications and current IV antibiotic therapy. Instructed the patient to increase activity as tolerated. Full medical consultations following. Patient is scheduled for EGD and colonoscopy was surgery on and will start bowel prep tomorrow. Repeat labs in continue to monitor closely.
[2020-08-18] MEDS ORDERED: VANCOMYCIN TROUGH DUE 1 EACH MISC MISCELLANE ONE (17:00)
[2020-08-18] MEDS: HYDROmorphone 1 MG/ML 1 ML SYRINGE IVP PRN ×2 (17:53→22:15)
--- NOTE | 2020-08-18 18:35 | XR ---
EXAM: Abdomen radiograph. HISTORY: Pain. TECHNIQUE: Supine and upright AP views of the abdomen with PA chest. COMPARISON: CT 08/14/2020. FINDINGS: There are nondilated bowel loops with a nonobstructive pattern. No free air. There are no pathologic calcifications. No acute osseous abnormality seen. Bilateral ureteral stents are seen. There is kinki ng of the right distal ureteral stent. The lungs are clear. The cardiomediastinal silhouette and central pulmonary vascularity is normal. No pleural effusion or pneumothorax. IMPRESSION: Kinking of the right ureteral stent. Recommend clinical correlation for malfunction. Nonobstructive bowel gas pattern. No acute cardiopulmonary abnormality.
--- NOTE | 2020-08-18 20:38 | PN ---
PROGRESS NOTE DATE OF SERVICE: 08/18/2020 REASON FOR FOLLOWUP: UTI and colitis. INTERVAL HISTORY: The patient is afebrile. She is breathing slightly comfortably. Continues to have cough, not bringing up any sputum. Still complaining of lower abdominal pain. No diarrhea. Some nausea but no vomiting. PHYSICAL EXAMINATION: Blood pressure 124/81 with a pulse 100, temperature 97.6. She is 98% on 2 L nasal cannula. General description is a middle-aged female up in the chair in no distress. RESPIRATORY SYSTEM: Unlabored breathing with decreased intensity of breath sounds. No wheeze. HEART: S1, S2. Regular rate and rhythm. ABDOMEN: Soft. No tenderness. LABS: Hemoglobin is 9.2, white count 10.4, BUN of 16, creatinine 1.49. DIAGNOSTIC IMPRESSION AND PLAN: 1. Patient with a positive blood culture with diphtheroid species, likely contaminant. Repeat blood culture negative. 2. Patient did have a complicated urinary tract infection and a question of colitis seen on the CT, covered with cefepime and Flagyl. Overall resolution of her fever. Continue current antibiotics and monitor clinical course closely. Continue supportive care. MMODL / IJN: [id number] /
--- NOTE | 2020-08-18 21:03 | XR ---
Result: History: Low back pain. Comparison: None available. Technique: 3 views of the lumbar spine. Findings: The bone mineralization is normal. Images of the lumbar spine demonstrate 5 lumbar-type vertebrae. There is no acute fracture or sublux ation. The vertebral body heights are preserved. The vertebral elements are in anatomic alignment. There is mild disc narrowing and facet arthropathy at L4-S1. Partially imaged bilateral ureter stent s seen. Impression: Mild spondylosis without acute osseous abnormality.
[2020-08-19] MEDS: HYDROcodone/APAP 10-325MG 1 EACH TAB PO PRN ×5 (00:24→20:45)
[2020-08-19] MEDS: metroNIDAZOLE-NS PMX 500 MG in SALINE 1 100ML.BAG IVPB SCH ×4 (00:24→23:27)
[2020-08-19] MEDS: SODIUM CHLORIDE 0.9% 1,000 ML IV SCH ×3 (00:24→23:27)
[2020-08-19] MEDS: HYDROmorphone 1 MG/ML 1 ML SYRINGE IVP PRN ×5 (02:07→23:27)
[2020-08-19] MEDS: LIDOCAINE 5% OINTMENT 50 GM JAR TOPICAL PRN (03:07)
[2020-08-19] MEDS: ONDANSETRON 4 MG/2 ML VIAL IVP PRN ×2 (06:24→20:45)
[2020-08-19] MEDS: IPRATROPIUM-ALBUTEROL 3 ML NEB INHALATION SCH ×4 (07:47→20:17)
[2020-08-19] MEDS ORDERED: PEG 3350-NA SULF,BICARB,CL/KCL 4,000 ML BOTTLE PO ONE (09:00)
[2020-08-19] MEDS: DOCUSATE 100 MG CAP PO SCH ×2 (09:02→20:45)
[2020-08-19] MEDS: FAMOTIDINE 20 MG TAB PO SCH ×2 (09:02→20:46)
[2020-08-19 10:03] LABS: HCT 28.8 % (37.2-46.3); HGB 8.6 g/dL (12.0-15.0); MCH 24.6 pg (27.0-32.0); MCHC 29.9 g/dL (32.0-37.0); MCV 82.3 fL (80.0-97.0); Mean Platelet Volume 11.1 fL (9.5-12.2); Platelet Count 206 X 10*3/uL (140-440); RDW 15.3 % (11.5-14.5); WBC 11.99 X 10*3/uL (4.50-10.00)
[2020-08-19] MEDS: CEFEPIME 2 GM in SODIUM CHLORIDE 0.9% 100 ML IVPB SCH ×2 (10:52→20:48)
[2020-08-19 11:03] LABS: African American GFR (CKD) 57.8 (60.0-200.0); Albumin 3.3 g/dL (3.80-4.90); Anion Gap 8.9 mmol/L (4.00-12.00); Calcium 8.8 mg/dL (8.7-10.3); Carbon Dioxide 24.1 mmol/L (21.6-31.8); Globulin 3.3 g/dL (1.6-3.3); Non-African American GFR(CKD) 49.9 (60.0-200.0); Potassium 4.1 mmol/L (3.5-5.5); Total Bilirubin 0.4 mg/dL (0.3-1.2); Total Protein 6.6 g/dL (6.2-8.2)
[2020-08-19 11:25] LABS: Basophils # (A) 0.06 X 10*3/uL (0.00-0.10); Basophils % (A) 0.5 %; Eosinophils % (A) 0.8 %; Hypochromasia (M) 2+; Lymphocytes # (A) 1.12 X 10*3/uL (0.90-5.00); Lymphocytes % (A) 9.3 %; Monocytes # (A) 0.91 X 10*3/uL (0.20-1.00); Monocytes % (A) 7.6 %; Neutrophils # (A) 9.66 X 10*3/uL (1.80-7.70); Neutrophils % (A) 80.6 %
--- NOTE | 2020-08-19 11:47 | PN ---
PROGRESS NOTE The patient is seen for followup for acute kidney injury. The patient did have urine retention is currently having a straight catheterization done for about 500 mL noted on the bladder scanner. PHYSICAL EXAMINATION: On examination today blood pressure was 139/84, heart rate 118 per minute. She is afebrile. EXAMINATION OF THE HEART: S1, S2. EXAMINATION OF THE LUNGS: Bilateral breath sounds are heard. Abdomen is distended, soft, nontender. Examination of lower extremities shows no significant edema. LABS: Labs are not available from today. ASSESSMENT: 1. Acute kidney injury, acute tubular necrosis and some degree of volume depletion, currently improved. There was concern for obstruction. However, renal function had improved with IV fluids with creatinine going back down to around 1.2 to 1.3 mg/dL. The patient does have urine retention and currently is getting a straight catheterization done. 2. Anemia, status post packed RBCs transfusion. 3. Cervical cancer stage IIIB, with bilateral hydronephrosis and bilateral ureteral stent placement. PLAN: Continue with IV fluids. Continue straight catheterization. Maintain follow up with Urology. MMODL / IJN: [id number] /
--- NOTE | 2020-08-19 13:53 | P.PN ---
Subjective Progress Note Date: 08/19/20 CHIEF COMPLAINT: Proctitis HISTORY OF PRESENT ILLNESS: Surgical service is following regards to patient's proctitis. Patient did have a bowel movement after the lactulose. She is still complaining of abdominal discomfort. She is followed by urology service. They recommended straight catheterizations for urinary retention. Patient is currently on a clear liquid diet. She will be starting her GoLYTELY prep. Afebrile. WBC 11.99 hemoglobin 8.6 Patient seen and examined with Dr. arguelles PHYSICAL EXAM: VITAL SIGNS: Reviewed. GENERAL: Well-developed in no acute distress. HEENT: No sclera icterus. Extraocular movements grossly intact. Moist buccal mucosa. Head is atraumatic, normocephalic. ABDOMEN: Soft. Mildly distended with right-sided tenderness NEUROLOGIC: Alert and oriented. Cranial nerves II through XII grossly intact. ASSESSMENT: 1. Proctitis 2. hiatal hernia 3. History of cervical cancer causing bilateral hydronephrosis PLAN: -Patient is scheduled for EGD and colonoscopy on , 08/20/[address] Arguelles -Start GoLYTELY bowel prep -Clear liquid diet today -NPO after midnight -Antibiotics per ID -Continue supportive care Physician Rack Washer note has been reviewed by physician. Signing provider agrees with the documented findings, assessment, and plan of care. Objective - Vital Signs Vital signs: Vital Signs Temp 97.8 F 08/19/20 08:00 Pulse 118 H 08/19/20 09:03 Resp 16 08/19/20 09:03 BP 139/84 08/19/20 08:00 Pulse Ox 88 L 08/19/20 08:00 Intake & Output 08/18/20 08/19/20 08/19/20 18:59 06:59 18:59 Intake Total 1620 236 Output Total 1450 1000 1200 Balance 170 -1000 -964 Intake: Oral 1620 236 Output: Urine 1450 1000 1200 Straight 400 1000 800 Other: Voiding Method Toilet Toilet Bedside Commode Bedside Commode Self-Catheterization Self-Catheterization # Voids 2 # Bowel Movements 1 - Labs CBC & Chem 7: 08/19/20 05:50 08/19/20 05:50 Labs: Abnormal Lab Results - Last 24 Hours (Table) 08/18/20 08/19/20 08/19/20 Range/Units 17:49 05:50 05:50 WBC 11.99 H (4.50-10.00) X 10*3/uL RBC 3.50 L (4.10-5.20) X 10*6/uL Hgb 8.6 L (12.0-15.0) g/dL Hct 28.8 L (37.2-46.3) % MCH 24.6 L (27.0-32.0) pg MCHC 29.9 L (32.0-37.0) g/dL RDW 15.3 H (11.5-14.5) % Absolute Nucleated RBC 0.02 H (0.00-0.00) X 10*3/uL Immature Gran # 0.14 H (0.00-0.04) X 10*3/uL Neutrophils # 9.66 H (1.80-7.70) X 10*3/uL NRBC/100 WBC Diff 0.2 H (0.0-0.0) /100 WBCS Creatinine 1.32 H (0.52-1.04) mg/dL Est GFR (CKD-EPI)AfAm 57.8 L (60.0-200.0) Est GFR (CKD-EPI)NonAf 49.9 L (60.0-200.0) BUN/Creatinine Ratio 10.00 L (12.00-20.00) Ratio Glucose 126 H (70-110) mg/dL AST 53 H (13-35) U/L Alkaline Phosphatase 335 H (41-126) U/L Albumin 3.30 L (3.80-4.90) g/dL Albumin/Globulin Ratio 1.00 L (1.60-3.17) g/dL Microbiology - Last 24 Hours (Table) 08/15/20 18:35 Blood Culture - Preliminary Blood No Growth after 72 hours
[2020-08-19] MEDS ORDERED: LORazepam 1 MG TAB PO PRN (15:37)
--- NOTE | 2020-08-19 16:50 | P.PN ---
Subjective Progress Note Date: 08/19/20 Sepsis/UTI Locally advanced cervical cancer Bilateral hydronephrosis secondary to urinary obstruction secondary to locally advanced cervical cancer/hemorrhagic cystitis Arin-rectal density/Rectal wall thickening/proctitis 45-year-old female that presents to emergency with abdominal pain. She was recently diagnosed with cervical cancer. She notes that she self catheterizes for urinary retention. She presents emergency with abdominal pain nausea vomiting. She was in bed in pain and was unable to give accurate answers to examination questions. Patient had bilateral ureteral stents placed on 06/02. She denied any chest pain shortness of breath headache fatigue hematochezia melena. White blood cells 15.1, urinalysis: Bloody, red blood cells greater than 182, white blood cells greater than 182. Cefepime and vancomycin ordered. KUB: Nonacute abdomen. The right ureteral stent appears more inferior than last exam. CT of the abdomen and pelvis: There is some minimal reticular nodular infiltrate at the lung bases. Extensive inflammatory changes in the pelvis with perirectal density measuring up to almost 3 cm in thickness. This is worse than last exam. Consider both inflammatory disease and malignancy. There is bilateral moderate hydronephrosis which appears to same or slightly worse than last exam. Stent malfunction is possible. There is increased reticular nodular interstitial infiltrate the lung bases compared to old exam. 08/16/2020 Patient is seen and evaluated at room at bedside; complained of [id number] distress secondary to uncontrolled pain; pain medications have been adjusted by oncology; patient continues to complain of abdominal pain but significantly improved from yesterday; no complaining of nausea vomiting; patient has a Carbone catheter in Vital signs are reviewed temperature of 98.1 with T-max of 102.4, pulse 118, respiration 18 and blood pressure of 104/64 with SpO2 of 93% on 3 L Laboratory review reveals a WBC of 7.2, hemoglobin of 7.5 and platelet count of 186; sodium of 139, potassium 4.5 and B UN/creatinine of 22/1.7; blood culture preliminary report reveals gram-positive bacillary; urine culture is negative so far Patient has been evaluated by oncology and is recommended to proceed with colonoscopy; continue with broad-spectrum IV antibiotic coverage with cefepime, Flagyl and vancomycin; patient will likely need to be treated with chemotherapy and radiation therapy for cervical cancer; radiation oncology to see patient and make recommendations Renal function is improving with creatinine down to 1.7 from 1.9 yesterday; we will continue with IV fluid hydration and monitor strict SHIRA's, daily weights, renal function and electrolytes; we will consult nephrology for management of renal function since patient need improved renal function prior to starting chemotherapy 08/17/2020 Patient is complaining of also complaining of hematuria patient's hemoglobin did drop to 6.8 we'll transfuse 1 unit of PRBC transfusion patient leukocytosis improved patient's creatinine is improving and presently 1.2. I spent significant amount of time counseling the patient and also explaining her pain patient will be started on long-acting opiate that is fentanyl patch and will continue with [place] as needed as well as morphine as needed but patient doesn't want morphine for pain. sodium to prophylaxis will be discontinued. Aft er the chest x-ray unfortunately I am unable to view the images but was read as previously scheduled disease cannot be ruled out patient is wheezing on exam although patient is apparently ALLERGIC to steroids because of which are just started on inhalational treatments titrating well at 98% on 4 L of oxygen. Patient is not tachycardic anymore. 08/18/2020 Patient is seen in follow-up continues to have multiple complaints of pain and is extremely tearful of her current situation. Patient has had Carbone catheter removed and states she voided and will continue straight catheter if unable to empty the bladder. Urology has evaluated the patient. Multiple medical consultations including surgery, oncology, nephrology, radiation oncology, and infectious disease following. is continued on IV antibiotics in the form of a for pain and Flagyl and will continue at this time. Repeat urine cultures and blood cultures have remained negative. Patient's hemoglobin is 9.2 today status post 1 unit of PRBCs yesterday, white blood count is 10.4, sodium is 137 with a potassium of 4.5. Current creatinine slightly worsened at 1.49 and nephrology is following. Continue with IV fluids at this time. And will repeat labs. Patient continues to have constipation and will continue with lactulose and Colace. Patient is scheduled tentatively to have an EGD and colonoscopy on and will likely start the bowel prep tomorrow. Patient continues to have severe pain and has multiple narcotic medications on board and will discontinue 2 mg of Dilaudid every 3 hours at this time. Patient does have MS Contin and fentanyl on board as well and oncology is following. 08/19/2020 Patient is seen in follow-up continues to be in pain stating "everywhere". Patient continues to have rectal tenderness and fecal incontinence and is currently wearing a brief period plans are for EGD colonoscopy with surgery tomorrow and bowel prep will start today. Patient is having loose gelatinous beard-colored loose stool and will obtain C. diff specimen. Patient's white count is slightly elevated at 11.99, hemoglobin is 8.6 with no active bleeding noted, sodium 137, potassium 4.1, creatinine 1.3. Patient is maintained on IV hydration and will continue. Nephrology following. Patient underwent abdominal series x-ray yesterday showing a kinking of the right ureteral stent with nonobstructive bowel gas pattern in no acute cardiopulmonary abnormalities. Patient also had a lumbar x-ray as she had recently fallen prior to admission showing mild spondylosis without acute osseous abnormality with no fractures or subluxations noted. Patient continues to refuse Carbone catheter stating it was causing immense pain and not tolerating straight catheterization per nursing staff. Urology is following. Constitutional: Denied any fatigue denied any fever. Cardio vascular: denied any chest pain, palpitations Gastrointestinal denied any nausea vomiting, reports continued loose stools and fecal incontinence Pulmonary: Complaining of shortness of breath Neurologic denied any new focal deficits All inpatient medications were reviewed and appropriate changes in these medications as dictated in the interval history and assessment and plan. Objective - Vital Signs Vital signs: Vital Signs Temp 97.8 F 08/19/20 08:00 Pulse 118 H 08/19/20 09:03 Resp 16 08/19/20 09:03 BP 139/84 08/19/20 08:00 Pulse Ox 88 L 08/19/20 08:00 Intake & Output 08/18/20 08/19/20 08/19/20 18:59 06:59 18:59 Intake Total 1620 236 Output Total 1450 1000 1200 Balance 170 -1000 -964 Intake: Oral 1620 236 Output: Urine 1450 1000 1200 Straight 400 1000 800 Other: Voiding Method Toilet Toilet Bedside Commode Bedside Commode Self-Catheterization Self-Catheterization # Voids 2 # Bowel Movements 1 - Exam GENERAL: The patient is alert and oriented x3, not in any acute distress. Well developed, well nourished. HEENT: Pupils are round and equally reacting to light. EOMI. No scleral icterus. No conjunctival pallor. Normocephalic, atraumatic. No pharyngeal erythema. No thyromegaly. CARDIOVASCULAR: S1 and S2 present. No murmurs, rubs, or gallops. PULMONARY: Expiratory wheezing on exam ABDOMEN: Soft, nontender, nondistended, normoactive bowel sounds. No palpable organomegaly. MUSCULOSKELETAL: No joint swelling or deformity. EXTREMITIES: No cyanosis, clubbing, or pedal edema. NEUROLOGICAL: Gross neurological examination did not reveal any focal deficits. SKIN: No rashes. - Labs CBC & Chem 7: 08/19/20 05:50 08/19/20 05:50 Labs: Abnormal Lab Results - Last 24 Hours (Table) 08/18/20 08/19/20 08/19/20 Range/Units 17:49 05:50 05:50 WBC 11.99 H (4.50-10.00) X 10*3/uL RBC 3.50 L (4.10-5.20) X 10*6/uL Hgb 8.6 L (12.0-15.0) g/dL Hct 28.8 L (37.2-46.3) % MCH 24.6 L (27.0-32.0) pg MCHC 29.9 L (32.0-37.0) g/dL RDW 15.3 H (11.5-14.5) % Absolute Nucleated RBC 0.02 H (0.00-0.00) X 10*3/uL Immature Gran # 0.14 H (0.00-0.04) X 10*3/uL Neutrophils # 9.66 H (1.80-7.70) X 10*3/uL NRBC/100 WBC Diff 0.2 H (0.0-0.0) /100 WBCS Creatinine 1.32 H (0.52-1.04) mg/dL Est GFR (CKD-EPI)AfAm 57.8 L (60.0-200.0) Est GFR (CKD-EPI)NonAf 49.9 L (60.0-200.0) BUN/Creatinine Ratio 10.00 L (12.00-20.00) Ratio Glucose 126 H (70-110) mg/dL AST 53 H (13-35) U/L Alkaline Phosphatase 335 H (41-126) U/L Albumin 3.30 L (3.80-4.90) g/dL Albumin/Globulin Ratio 1.00 L (1.60-3.17) g/dL Microbiology - Last 24 Hours (Table) 08/15/20 18:35 Blood Culture - Preliminary Blood No Growth after 72 hours Assessment and Plan Assessment: -Abdominal pain with perirectal density/thickness, patient is being treated for colitis. CT abdomen reveals inflammatory changes and rectal area; possibly secondary to inflammation versus related to cervical cancer; surgery also following and patient is scheduled to undergo EGD and colonoscopy in the morning and has started bowel prep. -Urinary obstruction/hydronephrosis; possible stent malfunctioning; urology on board and recommending a double-J catheter at this time; patient remains on IV antibiotics, indwelling Carbone catheter removed and patient will continue straight cath as she was having continued pain from the indwelling Carbone catheter. Abdominal x-ray yesterday shows kinking of the right ureteral stent and urology following. -Hemorrhagic Cystitis; patient was evaluated by urology and is recommending suhail ble-J catheters due to cervical cancer; continue with current antibiotics with further recommendations once urine culture results are available -Cervical cancer oncology evaluated the patient. Radiation oncology evaluated the patient as well. -Acute renal injury/ dehydration; continue with IV fluids, nephrology following creatinine today is 1.3 -Drop in hemoglobin probably secondary to hematuria: Acute blood loss and anemia from possible hematuria, bleeding noted in hemoglobin is 8.6 repeat labs -Shortness of breath: Probably secondary to COPD acute exacerbation. Currently using 3 L of oxygen and refusing ordered breathing treatments stating she needs to see her cremator prior to using this and continues to have shortness of breath -Pain management: Patient was started on longer acting opiate fentanyl patch along with the [place] and oral morphine for breakthrough pain will try to wean off IV Dilaudid. Patient continues to refuse morphine stating it makes her nauseated and believes the fentanyl is overdosing her but continues to request Dilaudid -DVT prophylaxis -GI prophylaxis -Full code Plan: Continue current medications and current IV antibiotic therapy. Instructed the patient to increase activity as tolerated. Multiple medical consultations following. Patient is scheduled for EGD and colonoscopy tomorrow and starting a bowel prep. Repeat labs in continue to monitor closely.
--- NOTE | 2020-08-19 17:35 | P.PN ---
Subjective Progress Note Date: 08/19/20 Principal diagnosis: Cervical Cancer Raciel is extremely axious, mother at bedside. She is not appropriate in her actions, she is expressing extreme emotional lability. Objective - Vital Signs Vital signs: Vital Signs Temp 98 F 08/19/20 14:00 Pulse 101 H 08/19/20 14:00 Resp 18 08/19/20 14:00 BP 142/76 08/19/20 14:00 Pulse Ox 90 L 08/19/20 14:00 Intake & Output 08/18/20 08/19/20 08/19/20 18:59 06:59 18:59 Intake Total 1620 236 Output Total 1450 1000 2900 Balance 170 -1000 -2664 Intake: Oral 1620 236 Output: Urine 1450 1000 2900 Straight 400 1000 1600 Uretheral (Carbone) 600 Other: Voiding Method Toilet Toilet Bedside Commode Bedside Commode Self-Catheterization Self-Catheterization # Voids 2 # Bowel Movements 1 - Exam - Constitutional General appearance: no acute distress - EENT Eyes: edentulous, PERRLA ENT: hard of hearing - Neck Neck: no lymphadenopathy - Respiratory Respiratory: bilateral: CTA - Cardiovascular Rhythm: regular - Gastrointestinal General gastrointestinal: no distended, soft, no tenderness - Integumentary Integumentary: pale, no rash - Neurologic Neurologic: CNII-XII intact - Musculoskeletal Musculoskeletal: strength equal bilaterally - Psychiatric Psychiatric: A&O x's 3, appropriate affect - Labs CBC & Chem 7: 08/19/20 05:50 08/19/20 05:50 Labs: Abnormal Lab Results - Last 24 Hours (Table) 08/18/20 08/19/20 08/19/20 Range/Units 17:49 05:50 05:50 WBC 11.99 H (4.50-10.00) X 10*3/uL RBC 3.50 L (4.10-5.20) X 10*6/uL Hgb 8.6 L (12.0-15.0) g/dL Hct 28.8 L (37.2-46.3) % MCH 24.6 L (27.0-32.0) pg MCHC 29.9 L (32.0-37.0) g/dL RDW 15.3 H (11.5-14.5) % Absolute Nucleated RBC 0.02 H (0.00-0.00) X 10*3/uL Immature Gran # 0.14 H (0.00-0.04) X 10*3/uL Neutrophils # 9.66 H (1.80-7.70) X 10*3/uL NRBC/100 WBC Diff 0.2 H (0.0-0.0) /100 WBCS Creatinine 1.32 H (0.52-1.04) mg/dL Est GFR (CKD-EPI)AfAm 57.8 L (60.0-200.0) Est GFR (CKD-EPI)NonAf 49.9 L (60.0-200.0) BUN/Creatinine Ratio 10.00 L (12.00-20.00) Ratio Glucose 126 H (70-110) mg/dL AST 53 H (13-35) U/L Alkaline Phosphatase 335 H (41-126) U/L Albumin 3.30 L (3.80-4.90) g/dL Albumin/Globulin Ratio 1.00 L (1.60-3.17) g/dL Microbiology - Last 24 Hours (Table) 08/15/20 18:35 Blood Culture - Preliminary Blood No Growth after 72 hours Assessment and Plan Plan: Initial presentation with abdominal pain. Diagnosed with cervical cancer in June. She self catheterizes for urinary retention. Admits to Nausea and vomiting as well, which is improved since admission - Patient had bilateral ureteral stents placed on 06/25/2020. IV Antibiotics KUB: Nonacute abdomen. The right ureteral stent appears more inferior than last exam. CT of the abdomen and pelvis: There is some minimal reticular nodular infiltrate at the lung bases. Extensive inflammatory changes in the pelvis with perirectal density measuring up to almost 3 cm in thickness. This is worse than last exam. Consider both inflammatory disease and malignancy. There is bilateral moderate hydronephrosis which appears to same or slightly worse than last exam. Stent malfunction is possible. There is increased reticular nodular interstitial infiltrate the lung bases compared to old exam. 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 - She has not started treatment Plan: - Continue supportive care per urology and primary team while in hospital and plan to follow-up with Dr. Joyner or Dr. Alsawah as outpatient as soon as possible to intitiate treatment - She seen while in hospital as well as treatment plan likely be chemo and radiation concurrent - She will likely require repeat restaging given the worsening picture on CT and length of time from diagnosis to now. - Renal Function has been labile while admitted, monitor closely for improvement, self cath and urine residual - Reports requested from Jaspal Gr - Add ativan to assist in nausea, anxiety, and could benefit from MRI BRain and psych consult
[2020-08-19] MEDS ORDERED: LORazepam 2 MG/ML INJ IV PRN (17:37)
--- NOTE | 2020-08-19 23:23 | PN ---
PROGRESS NOTE DATE OF SERVICE: 08/19/2020 REASON FOR FOLLOWUP: Complicated UTI and colitis. INTERVAL HISTORY: The patient was seen on rounds this morning. The patient has been afebrile, breathing comfortably. She did have a cough, though decreased in intensity and dry in nature. No chest pain. Still complaining of abdominal pain, nausea, but no vomiting. Did have bowel movement; no diarrhea. PHYSICAL EXAMINATION: Blood pressure 117/61 with a pulse of 107, temperature 98.6. She is 100% on 4 L nasal cannula. General description is a middle-aged female up in the chair in no distress. RESPIRATORY SYSTEM: Unlabored breathing with decreased intensity of breath sounds. No wheeze. HEART: S1, S2. Regular rate and rhythm. ABDOMEN: Soft. Mildly tender. No guarding or rigidity. LABS: Hemoglobin 8.3, white count 11.9, BUN of 13, creatinine is 1.3. Culture so far negative. DIAGNOSTIC IMPRESSION AND PLAN: 1. Patient with positive blood culture with diphtheroids which is likely contaminant. Repeat blood culture has been negative. 2. Patient with a complicated urinary tract infection with evidence of hydronephrosis and possible colitis. Covered with cefepime and Flagyl. White count normal. Fever resolved. Continue current antibiotics and monitor her clinical course closely. MMODL / IJN: [id number] /
[2020-08-20] MEDS: HYDROcodone/APAP 10-325MG 1 EACH TAB PO PRN ×2 (01:25→05:31)
[2020-08-20] MEDS: HYDROmorphone 1 MG/ML 1 ML SYRINGE IVP PRN ×2 (03:44→07:49)
[2020-08-20 06:31] LABS: Basophils # (A) 0.1 k/uL (0-0.2); Basophils % (A) 1 %; Eosinophils # (A) 0.1 k/uL (0-0.7); Eosinophils % (A) 1 %; HCT 29.1 % (34.0-46.0); HGB 9.3 gm/dL (11.4-16.0); Hypochromasia Moderate; Lymphocytes # (A) 1.2 k/uL (1.0-4.8); Lymphocytes % (A) 7 %; MCH 25.4 pg (25.0-35.0); MCHC 32.1 g/dL (31.0-37.0); Mean Platelet Volume 8.3; Monocytes # (A) 0.9 k/uL (0-1.0); Monocytes % (A) 6 %; Neutrophils # (A) 14.4 k/uL (1.3-7.7); Neutrophils % (A) 84 %; Platelet Count 247 k/uL (150-450); RBC 3.68 m/uL (3.80-5.40); RDW 15.6 % (11.5-15.5); WBC 17.2 k/uL (3.8-10.6)
[2020-08-20 06:45] LABS: ALT 32 U/L (4-34); AST 55 U/L (14-36); African American GFR (CKD) 54 (>60 ml/min/1.73 sqM); Albumin 3.4 g/dL (3.5-5.0); Albumin/Globulin Ratio 0.9; Alkaline Phosphatase 384 U/L (38-126); Anion Gap 10 mmol/L; Blood Urea Nitrogen 11 mg/dL (7-17); Calcium 9.1 mg/dL (8.4-10.2); Carbon Dioxide 23 mmol/L (22-30); Chloride 105 mmol/L (98-107); Globulin 3.9 g/dL; Glucose 98 mg/dL (74-99); Non-African American GFR(CKD) 47 (>60 ml/min/1.73 sqM); Potassium 4.1 mmol/L (3.5-5.1); Sodium 138 mmol/L (137-145); Total Bilirubin 0.6 mg/dL (0.2-1.3); Total Protein 7.3 g/dL (6.3-8.2)
[2020-08-20] MEDS: FAMOTIDINE 20 MG TAB PO SCH ×2 (07:49→19:42)
[2020-08-20] MEDS: metroNIDAZOLE-NS PMX 500 MG in SALINE 1 100ML.BAG IVPB SCH ×2 (07:49→14:53)
[2020-08-20] MEDS: DOCUSATE 100 MG CAP PO SCH ×2 (07:49→19:43)
[2020-08-20] MEDS: IPRATROPIUM-ALBUTEROL 3 ML NEB INHALATION SCH ×4 (08:52→19:50)
[2020-08-20] MEDS: CEFEPIME 2 GM in SODIUM CHLORIDE 0.9% 100 ML IVPB SCH ×2 (11:44→23:01)
--- NOTE | 2020-08-20 11:44 | P.PN ---
Progress Note - Text Progress Note Date: 08/20/20 The patient reports pelvic pain. She requests ileal conduit urinary diversion, which I do not recommend. She states she has not been shown how to self catheterize, though she was taught in our office. I was asked the nursing staff to assist her with this. I will also make arrangements for her to undergo bilateral ureteral stent change in the near future as an outpatient.
[2020-08-20] MEDS ORDERED: PEG 3350-NA SULF,BICARB,CL/KCL 4,000 ML BOTTLE PO ONE (13:50)
--- NOTE | 2020-08-20 14:18 | P.PN ---
Subjective Progress Note Date: 08/20/20 Sepsis/UTI Locally advanced cervical cancer Bilateral hydronephrosis secondary to urinary obstruction secondary to locally advanced cervical cancer/hemorrhagic cystitis Lamar-rectal density/Rectal wall thickening/proctitis 45-year-old female that presents to emergency with abdominal pain. She was recently diagnosed with cervical cancer. She notes that she self catheterizes for urinary retention. She presents emergency with abdominal pain nausea vomiting. She was in bed in pain and was unable to give accurate answers to examination questions. Patient had bilateral ureteral stents placed on 06/02. She denied any chest pain shortness of breath headache fatigue hematochezia melena. White blood cells 15.1, urinalysis: Bloody, red blood cells greater than 182, white blood cells greater than 182. Cefepime and vancomycin ordered. KUB: Nonacute abdomen. The right ureteral stent appears more inferior than last exam. CT of the abdomen and pelvis: There is some minimal reticular nodular infiltrate at the lung bases. Extensive inflammatory changes in the pelvis with perirectal density measuring up to almost 3 cm in thickness. This is worse than last exam. Consider both inflammatory disease and malignancy. There is bilateral moderate hydronephrosis which appears to same or slightly worse than last exam. Stent malfunction is possible. There is increased reticular nodular interstitial infiltrate the lung bases compared to old exam. 08/16/2020 Patient is seen and evaluated at room at bedside; complained of [id number] distress secondary to uncontrolled pain; pain medications have been adjusted by oncology; patient continues to complain of abdominal pain but significantly improved from yesterday; no complaining of nausea vomiting; patient has a Carbone catheter in Vital signs are reviewed temperature of 98.1 with T-max of 102.4, pulse 118, respiration 18 and blood pressure of 104/64 with SpO2 of 93% on 3 L Laboratory review reveals a WBC of 7.2, hemoglobin of 7.5 and platelet count of 186; sodium of 139, potassium 4.5 and B UN/creatinine of 22/1.7; blood culture preliminary report reveals gram-positive bacillary; urine culture is negative so far Patient has been evaluated by oncology and is recommended to proceed with colonoscopy; continue with broad-spectrum IV antibiotic coverage with cefepime, Flagyl and vancomycin; patient will likely need to be treated with chemotherapy and radiation therapy for cervical cancer; radiation oncology to see patient and make recommendations Renal function is improving with creatinine down to 1.7 from 1.9 yesterday; we will continue with IV fluid hydration and monitor strict SHIRA's, daily weights, renal function and electrolytes; we will consult nephrology for management of renal function since patient need improved renal function prior to starting chemotherapy 08/17/2020 Patient is complaining of also complaining of hematuria patient's hemoglobin did drop to 6.8 we'll transfuse 1 unit of PRBC transfusion patient leukocytosis improved patient's creatinine is improving and presently 1.2. I spent significant amount of time counseling the patient and also explaining her pain patient will be started on long-acting opiate that is fentanyl patch and will continue with Gordon as needed as well as morphine as needed but patient doesn't want morphine for pain. sodium to prophylaxis will be discontinued. Aft er the chest x-ray unfortunately I am unable to view the images but was read as previously scheduled disease cannot be ruled out patient is wheezing on exam although patient is apparently ALLERGIC to steroids because of which are just started on inhalational treatments titrating well at 98% on 4 L of oxygen. Patient is not tachycardic anymore. 08/18/2020 Patient is seen in follow-up continues to have multiple complaints of pain and is extremely tearful of her current situation. Patient has had Carbone catheter removed and states she voided and will continue straight catheter if unable to empty the bladder. Urology has evaluated the patient. Multiple medical consultations including surgery, oncology, nephrology, radiation oncology, and infectious disease following. is continued on IV antibiotics in the form of a for pain and Flagyl and will continue at this time. Repeat urine cultures and blood cultures have remained negative. Patient's hemoglobin is 9.2 today status post 1 unit of PRBCs yesterday, white blood count is 10.4, sodium is 137 with a potassium of 4.5. Current creatinine slightly worsened at 1.49 and nephrology is following. Continue with IV fluids at this time. And will repeat labs. Patient continues to have constipation and will continue with lactulose and Colace. Patient is scheduled tentatively to have an EGD and colonoscopy on and will likely start the bowel prep tomorrow. Patient continues to have severe pain and has multiple narcotic medications on board and will discontinue 2 mg of Dilaudid every 3 hours at this time. Patient does have MS Contin and fentanyl on board as well and oncology is following. 08/19/2020 Patient is seen in follow-up continues to be in pain stating "everywhere". Patient continues to have rectal tenderness and fecal incontinence and is currently wearing a brief. plans are for EGD colonoscopy with surgery tomorrow and bowel prep will start today. Patient is having loose gelatinous beard-colored loose stool and will obtain C. diff specimen. Patient's white count is slightly elevated at 11.99, hemoglobin is 8.6 with no active bleeding noted, sodium 137, potassium 4.1, creatinine 1.3. Patient is maintained on IV hydration and will continue. Nephrology following. Patient underwent abdominal series x-ray yesterday showing a kinking of the right ureteral stent with nonobstructive bowel gas pattern in no acute cardiopulmonary abnormalities. Patient also had a lumbar x-ray as she had recently fallen prior to admission showing mild spondylosis without acute osseous abnormality with no fractures or subluxations noted. Patient continues to refuse Carbone catheter stating it was causing immen se pain and not tolerating straight catheterization per nursing staff. Urology is following. 08/20/2020 Patient is seen this morning continues to be tearful and out of sorts and having difficulty with urination. Patient is supposed to be using straight catheter and self catheterization although states she was never educated on this and is having difficulties. Urology has educated the patient and nursing staff will continue to attempt to educate. Patient was started on the bowel prep yesterday and apparently throughout the night did not continue and states she was not told to do so in the EGD/colonoscopy is being rescheduled for tomorrow morning. Patient will continue on clear liquids and continue with the bowel prep and be nothing by mouth at midnight. Multiple medical consultations following. Patient is maintained on IV antibiotics and will continue. Patient is afebrile although white blood count is on an upward trend today at 17.2 and hemoglobin is stable at 9.3 with no active bleeding noted. Creatinine slightly elevated at 1.37 and will repeat labs in continue to monitor. Patient continues on 4 L of oxygen with a 99% oxygen saturation and does have breathing treatments ordered but is refusing at this time. Patient does use inhalers in the outpatient setting as needed. Constitutional: Denied any fatigue denied any fever. Cardio vascular: denied any chest pain, palpitations Gastrointestinal denied any nausea vomiting, reports continued loose stools and fecal incontinence Pulmonary: Reports shortness of breath Neurologic denied any new focal deficits All inpatient medications were reviewed and appropriate changes in these medications as dictated in the interval history and assessment and plan. Objective - Vital Signs Vital signs: Vital Signs Temp 97.9 F 08/20/20 07:52 Pulse 110 H 08/20/20 07:52 Resp 18 08/20/20 07:52 BP 122/77 08/20/20 07:52 Pulse Ox 94 L 08/20/20 07:52 Intake & Output 08/19/20 08/20/20 08/20/20 18:59 06:59 18:59 Intake Total 236 Output Total 2900 750 Balance -2664 -750 Intake: Oral 236 Output: Urine 2900 750 Straight 1600 750 Uretheral (Carbone) 600 Other: Voiding Method Toilet Toilet Bedside Commode Bedside Commode Self-Catheterization Self-Catheterization # Bowel Movements 1 - Exam GENERAL: The patient is alert and oriented x3, not in any acute distress. Well developed, well nourished. HEENT: Pupils are round and equally reacting to light. EOMI. No scleral icterus. No conjunctival pallor. Normocephalic, atraumatic. No pharyngeal erythema. No thyromegaly. CARDIOVASCULAR: S1 and S2 present. No murmurs, rubs, or gallops. PULMONARY: Diminished breath sounds with minimal expiratory wheezing noted ABDOMEN: Soft, nontender, nondistended, normoactive bowel sounds. No palpable organomegaly. MUSCULOSKELETAL: No joint swelling or deformity. EXTREMITIES: No cyanosis, clubbing, or pedal edema. NEUROLOGICAL: Gross neurological examination did not reveal any focal deficits. SKIN: No rashes. - Labs CBC & Chem 7: 08/20/20 05:30 08/20/20 05:30 Labs: Abnormal Lab Results - Last 24 Hours (Table) 08/19/20 08/20/20 08/20/20 Range/Units 05:50 05:30 05:30 WBC 17.2 H (3.8-10.6) k/uL RBC 3.68 L (3.80-5.40) m/uL Hgb 9.3 L (11.4-16.0) gm/dL Hct 29.1 L (34.0-46.0) % MCV 79.0 L (80.0-100.0) fL RDW 15.6 H (11.5-15.5) % Immature Gran # 0.14 H (0.00-0.04) X 10*3/uL Neutrophils # 9.66 H 14.4 H (1.80-7.70) X 10*3/uL Creatinine 1.37 H (0.52-1.04) mg/dL AST 55 H (14-36) U/L Alkaline Phosphatase 384 H (38-126) U/L Albumin 3.4 L (3.5-5.0) g/dL Microbiology - Last 24 Hours (Table) 08/15/20 18:35 Blood Culture - Preliminary Blood No Growth after 96 hours Assessment and Plan Assessment: -Abdominal pain with lamar-rectal density/thickness, patient is being treated for colitis. CT abdomen reveals inflammatory changes and rectal area; possibly secondary to inflammation versus related to cervical cancer; surgery also following and patient was scheduled for EGD/colonoscopy today although did not complete the bowel prep and will continue with bowel prep and plans for EGD colonoscopy in the morning -Urinary obstruction/hydronephrosis; possible stent malfunctioning; urology on board and recommending a double-J catheter in the near future in the outpatient setting and recommending to continue with straight catheterization and educating the patient on straight cathing as patient will likely need to do this at home. Continued resistance from the patient stating she has not being educated properly. Discussed with nursing staff about continuing to attempt educating -Hemorrhagic Cystitis; patient was evaluated by urology and is recommending double-J catheters due to cervical cancer in the outpatient setting; urine culture remains negative -Cervical cancer oncology following and will need close outpatient follow-up. Patient states her gynecological oncologist is out of [facility] -Acute renal injury/ dehydration; continue with IV fluids, nephrology following creatinine today is slightly worse 1.37 -Drop in hemoglobin probably secondary to hematuria: Acute blood loss and anemia from possible hematuria, no bleeding noted. hemoglobin is 9.3 -Shortness of breath: Probably secondary to COPD acute exacerbation. Currently using 3-4 L of oxygen and refusing ordered breathing treatments stating she needs to see her able bodied watchman prior to using this and continues to have shortness of breath -Pain management: Patient was started on longer acting opiate fentanyl patch al donn with the Gordon and oral morphine for breakthrough pain will try to wean off IV Dilaudid. Patient continues to refuse morphine stating it makes her nauseated and believes the fentanyl is overdosing her but continues to request Dilaudid -DVT prophylaxis -GI prophylaxis -Full code Plan: Continue current medications and current IV antibiotic therapy. Instructed the patient to increase activity as tolerated. Multiple medical consultations following. Patient was scheduled for EGD and colonoscopy today although did not complete the bowel prep and will continue with bowel prep today and undergo EGD/colonoscopy with surgery in the morning. Repeat labs in continue to monitor closely.
[2020-08-20] MEDS ORDERED: HYDROmorphone 2 MG TAB PO STA (14:21)
--- NOTE | 2020-08-20 14:32 | PN ---
PROGRESS NOTE Patient is seen for followup for acute kidney injury. Serum creatinine mostly staying around 1.3. Patient is maintained on IV fluids. She is complaining of increased swelling. She has had urine retention for which she has required straight catheterization. This morning, patient is currently in the shower, but she is able to talk to me. Blood pressure is reviewed. Vital signs are reviewed. PHYSICAL EXAMINATION: Blood pressure was 122/77, heart rate 110 per minute. Her legs are swollen. CARDIOVASCULAR TECHNICIAN exam does not show any gross motor deficit. Lungs and heart are not examined. LABS: Labs are reviewed, which show sodium 138, potassium 4.1, chloride 105, CO2 is 23, BUN 11, creatinine 1.37, hemoglobin 9.3 g/dL. ASSESSMENT: 1. Acute kidney injury mostly prerenal currently improved. Patient is maintained on IV hydration. 2. History of cervical cancer stage IIIB, with bilateral hydronephrosis and bilateral ureteral stents. 3. Anemia multifactorial, status post packed RBCs transfusion. 4. Urine retention, currently having straight catheterization. PLAN: Decrease IV fluids. Continue to encourage increased oral intake. Continue to monitor labs. MMODL / IJN: [id number] /
--- NOTE | 2020-08-20 15:05 | P.PN ---
Subjective Progress Note Date: 08/20/20 CHIEF COMPLAINT: Proctitis HISTORY OF PRESENT ILLNESS: Surgical service is following regards to patient's proctitis. Patient was initially scheduled for EGD and colonoscopy today. However patient did not complete the full GoLYTELY prep in the adequate amount of time. And she is still having brown stools. She still complains of abdominal pain. She denies any nausea or vomiting. Afebrile. WBC 17.2 hemoglobin 9.3 creatinine 1.37 Patient did have a bowel movement after the lactulose. She is still complaining of abdominal discomfort. She is followed by urology service. They recommended straight catheterizations for urinary retention. Patient is currently on a clear liquid diet. She will be starting her GoLYTELY prep. Afebrile. WBC 11.99 hemoglobin 8.6 Patient seen and examined with Dr. arguelles PHYSICAL EXAM: VITAL SIGNS: Reviewed. GENERAL: Well-developed in no acute distress. HEENT: No sclera icterus. Extraocular movements grossly intact. Moist buccal mucosa. Head is atraumatic, normocephalic. ABDOMEN: Soft. Mildly distended with right-sided tenderness NEUROLOGIC: Alert and oriented. Cranial nerves II through XII grossly intact. ASSESSMENT: 1. Proctitis 2. hiatal hernia 3. History of cervical cancer causing bilateral hydronephrosis PLAN: -Patient is rescheduled for EGD and colonoscopy on 08/21/[address] Arguelles -We'll give another 2 L GoLYTELY prep -Clear liquid diet today -NPO after midnight -Antibiotics per ID -Continue supportive care Physician Negative Notcher note has been reviewed by physician. Signing provider agrees with the documented findings, assessment, and plan of care. Objective - Vital Signs Vital signs: Vital Signs Temp 97.9 F 08/20/20 07:52 Pulse 110 H 08/20/20 07:52 Resp 18 08/20/20 07:52 BP 122/77 08/20/20 07:52 Pulse Ox 94 L 08/20/20 07:52 Intake & Output 08/19/20 08/20/20 08/20/20 18:59 06:59 18:59 Intake Total 236 Output Total 2900 750 Balance -2664 -750 Intake: Oral 236 Output: Urine 2900 750 Straight 1600 750 Uretheral (Carbone) 600 Other: Voiding Method Toilet Toilet Bedside Commode Bedside Commode Self-Catheterization Self-Catheterization # Bowel Movements 1 - Labs CBC & Chem 7: 08/20/20 05:30 08/20/20 05:30 Labs: Abnormal Lab Results - Last 24 Hours (Table) 08/20/20 08/20/20 Range/Units 05:30 05:30 WBC 17.2 H (3.8-10.6) k/uL RBC 3.68 L (3.80-5.40) m/uL Hgb 9.3 L (11.4-16.0) gm/dL Hct 29.1 L (34.0-46.0) % MCV 79.0 L (80.0-100.0) fL RDW 15.6 H (11.5-15.5) % Neutrophils # 14.4 H (1.3-7.7) k/uL Creatinine 1.37 H (0.52-1.04) mg/dL AST 55 H (14-36) U/L Alkaline Phosphatase 384 H (38-126) U/L Albumin 3.4 L (3.5-5.0) g/dL Microbiology - Last 24 Hours (Table) 08/15/20 18:35 Blood Culture - Preliminary Blood No Growth after 96 hours
[2020-08-20] MEDS: SODIUM CHLORIDE 0.9% 1,000 ML IV SCH ×2 (15:21→19:43)
--- NOTE | 2020-08-20 18:24 | P.PN ---
Subjective Progress Note Date: 08/20/20 Principal diagnosis: Cervical Cancer During follow-up patient on bedside commode, she is dozing off while talking to her, opens eyes to say she is in pain and not getting anything. During review of pain medications she has multiple choices for short acting. We will discontinue, Percocet, Antelope. Continue on fentanyl and One PO breakthrough (Breakthrough dilaudid PO to discontinue IV dilaudid). Objective - Vital Signs Vital signs: Vital Signs Temp 97.7 F 08/20/20 14:00 Pulse 104 H 08/20/20 14:00 Resp 18 08/20/20 14:00 BP 143/92 08/20/20 14:00 Pulse Ox 94 L 08/20/20 15:38 Intake & Output 08/19/20 08/20/20 08/20/20 18:59 06:59 18:59 Intake Total 236 200 Output Total 2900 750 1400 Balance -2664 -750 -1200 Weight 90.718 kg Intake: IV 200 Cefepime 2 gm In Sodium 200 Chloride 0.9% 100 ml @ 200 mls/hr IVPB Q12H ISABEL Rx#:[id number] Oral 236 Output: Urine 2900 750 1400 Straight [id number] Uretheral (Carbone) 600 Other: Voiding Method Toilet Toilet Bedside Commode Bedside Commode Self-Catheterization Self-Catheterization # Bowel Movements 1 - Exam - Constitutional General appearance: no acute distress - EENT Eyes: edentulous, PERRLA ENT: hard of hearing - Neck Neck: no lymphadenopathy - Respiratory Respiratory: bilateral: CTA - Cardiovascular Rhythm: regular - Gastrointestinal General gastrointestinal: no distended, soft, no tenderness - Integumentary Integumentary: pale, no rash - Neurologic Neurologic: CNII-XII intact - Musculoskeletal Musculoskeletal: strength equal bilaterally - Psychiatric Psychiatric: A&O x's 3, appropriate affect - Labs CBC & Chem 7: 08/20/20 05:30 08/20/20 05:30 Labs: Abnormal Lab Results - Last 24 Hours (Table) 08/20/20 08/20/20 Range/Units 05:30 05:30 WBC 17.2 H (3.8-10.6) k/uL RBC 3.68 L (3.80-5.40) m/uL Hgb 9.3 L (11.4-16.0) gm/dL Hct 29.1 L (34.0-46.0) % MCV 79.0 L (80.0-100.0) fL RDW 15.6 H (11.5-15.5) % Neutrophils # 14.4 H (1.3-7.7) k/uL Creatinine 1.37 H (0.52-1.04) mg/dL AST 55 H (14-36) U/L Alkaline Phosphatase 384 H (38-126) U/L Albumin 3.4 L (3.5-5.0) g/dL Microbiology - Last 24 Hours (Table) 08/15/20 18:35 Blood Culture - Preliminary Blood No Growth after 96 hours Assessment and Plan Plan: Initial presentation with abdominal pain. Diagnosed with cervical cancer in June. She self catheterizes for urinary retention. Admits to Nausea and vomiting as well, which is improved since admission - Patient had bilateral ureteral stents placed on 06/25/2020. IV Antibiotics KUB: Nonacute abdomen. The right ureteral stent appears more inferior than last exam. CT of the abdomen and pelvis: There is some minimal reticular nodular infiltrate at the lung bases. Extensive inflammatory changes in the pelvis with perirectal density measuring up to almost 3 cm in thickness. This is worse than last exam. Consider both inflammatory disease and malignancy. There is bilateral moderate hydronephrosis which appears to same or slightly worse than last exam. Stent malfunction is possible. There is increased reticular nodular interstitial infiltrate the lung bases compared to old exam. 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 - She has not started treatment Plan: - Refer to psychiatry for labile and childlike reactions, concern of underlying condition resulting into a barrier of her treatment (she was diagnosed in June and the story is not clear as to what happened with why she has not follow-up) - Uncontrolled pain/concern of over lethargic - Feel a large component is the anxiety aspect. Simplifying her medications and making clear what and when to utilize will help. Fentanyl patch to continue for long acting pain control, and one short acting for breakthrough. Discussed with patient and she was concerned not having dilaudid IV, explained that IV dilaudid will not be available at home. She is adament percocet and norco do not cover her pain therefore wll di scontinue them, and IV dilaudid and she can utilize PO dilaudid - Narcotic induced constipation protocol ordered
--- NOTE | 2020-08-20 18:28 | PN ---
PROGRESS NOTE DATE OF SERVICE: 08/22/2020 REASON FOR FOLLOWUP: 1. Complicated UTI. 2. Proctitis. INTERVAL HISTORY: The patient is afebrile. The patient is breathing slightly comfortably, requiring about 4 L nasal cannula. The patient was not able to her bowel prep; EGD and colonoscopy have been put on hold for today. The patient denies having any chest pain. Cough has decreased in intensity. Still complaining of abdominal pain. No vomiting, though. PHYSICAL EXAMINATION: Blood pressure 143/92 with a pulse of 104, temperature 97.7. She is 90% on 4 L nasal cannula. General description is a middle-aged female lying in bed in no distress. RESPIRATORY SYSTEM: Unlabored breathing with decreased breath sounds at the base. No wheeze. HEART: S1, S2. Regular rate and rhythm. ABDOMEN: Soft. No tenderness. LABS: Hemoglobin is 9.3, white count 17.2, BUN of 11, creatinine 1.37. Cultures were negative. DIAGNOSTIC IMPRESSION AND PLAN: 1. Patient with positive blood culture with diphtheroid species, likely contaminant; repeat blood culture negative. 2. Patient with a complicated urinary tract infection and proctitis. To continue with Flagyl and cefepime. Waiting for the EGD and colonoscopy and exchange of her ureteral stent. Continue supportive care. Prognosis remains guarded. MMODL / IJN: [id number] /
[2020-08-20] MEDS: HYDROmorphone 2 MG TAB PO PRN (19:42)
[2020-08-21] MEDS: metroNIDAZOLE-NS PMX 500 MG in SALINE 1 100ML.BAG IVPB SCH ×3 (00:33→15:22)
[2020-08-21] MEDS: HYDROmorphone 2 MG TAB PO PRN ×7 (00:33→21:36)
[2020-08-21] MEDS: ONDANSETRON 4 MG/2 ML VIAL IVP PRN ×2 (04:39→18:39)
[2020-08-21] MEDS: DOCUSATE 100 MG CAP PO SCH ×2 (07:03→21:38)
[2020-08-21] MEDS: FAMOTIDINE 20 MG TAB PO SCH ×2 (07:03→21:38)
[2020-08-21 07:39] LABS: Basophils # (A) 0.1 k/uL (0-0.2); Basophils % (A) 1 %; Eosinophils % (A) 0 %; HCT 26.7 % (34.0-46.0); HGB 8.7 gm/dL (11.4-16.0); Hypochromasia Moderate; Lymphocytes # (A) 1.2 k/uL (1.0-4.8); Lymphocytes % (A) 8 %; MCH 25.6 pg (25.0-35.0); MCHC 32.5 g/dL (31.0-37.0); MCV 78.7 fL (80.0-100.0); Monocytes # (A) 0.8 k/uL (0-1.0); Monocytes % (A) 6 %; Neutrophils # (A) 11.7 k/uL (1.3-7.7); Neutrophils % (A) 83 %; Platelet Count 229 k/uL (150-450); RBC 3.39 m/uL (3.80-5.40); RDW 15.9 % (11.5-15.5); WBC 14.1 k/uL (3.8-10.6)
[2020-08-21] MEDS: IPRATROPIUM-ALBUTEROL 3 ML NEB INHALATION SCH ×4 (07:46→20:32)
[2020-08-21 07:52] LABS: African American GFR (CKD) 56 (>60 ml/min/1.73 sqM); Anion Gap 11 mmol/L; Blood Urea Nitrogen 12 mg/dL (7-17); Carbon Dioxide 24 mmol/L (22-30); Chloride 107 mmol/L (98-107); Glucose 105 mg/dL (74-99); Non-African American GFR(CKD) 49 (>60 ml/min/1.73 sqM); Potassium 3.8 mmol/L (3.5-5.1); Sodium 142 mmol/L (137-145)
[2020-08-21] MEDS ORDERED: PROPOFOL 10 MG/ML 20 ML VIAL IV ONE (08:25)
[2020-08-21] MEDS ORDERED: LIDOCAINE 1% INJ 10MG/ML (20 ML MDV) ONE (08:25)
[2020-08-21] MEDS ORDERED: IV FLUID CONTINUATION 1,000 ML IV ONE (08:27)
--- NOTE | 2020-08-21 08:55 | P.OP ---
Date of Procedure: 08/21/20 Preoperative Diagnosis: Proctitis, GERD Postoperative Diagnosis: Mild antral gastritis Near obstructing Rectal mass Procedure(s) Performed: EGD Colonoscopy Anesthesia: MAC Surgeon: Fab Rivera Pathology: other (Rectal mass, antrum) Condition: stable Disposition: PACU Description of Procedure: The patient's placed on the endoscopy table in the lateral position. She received IV sedation. The gastroscope oropharynx passed in the esophagus and stomach. Scope was then placed through the pylorus. The first and second portion of the duodenum appeared normal. Scope was brought back the antrum this is minimally inflamed. Biopsies performed. The scope was retroflexed and there was no significant hiatal hernia. The remainder some of his normal. The GE junction was at 40 cm. The distal esophagus appeared normal. The proximal esophagus appeared normal. Scope withdrawn. Next digital rectal exam is performed. There was an obstructing rectal mass just at the anal verge. This could be easily palpated with finger. The colonoscope was placed patient anus. The mass was occluding most of the rectum. The scope could not be passed beyond the mass. Several biopsies were performed with cold forcep. The mass is very firm and hard. Scope was withdrawn.
[2020-08-21] MEDS ORDERED: FUROSEMIDE 10 MG/ML 4 ML VIAL IV STA (10:39)
--- NOTE | 2020-08-21 11:27 | P.PN ---
<Jayda Gonzalez - Last Filed: 08/21/20 16:07> Subjective Progress Note Date: 08/21/20 Principal diagnosis: Cervical Cancer Patient underwent GI Evaluation this am with Dr. Rivera, unfortunetly near obstructing mass rectum, patient will need diverting ostomy. This is planned for Monday, case was discussed in detail with Surgery team. 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 Objective - Vital Signs Vital signs: Vital Signs Temp 98.4 F 08/21/20 09:10 Pulse 69 08/21/20 09:10 Resp 18 08/21/20 09:10 BP 143/89 08/21/20 09:40 Pulse Ox 97 08/21/20 09:10 Intake & Output 08/20/20 08/21/20 08/21/20 18:59 06:59 18:59 Intake Total 200 100 Output Total 1400 750 Balance -1200 -750 100 Weight 90.718 kg Intake: IV 200 100 Cefepime 2 gm In Sodium 200 Chloride 0.9% 100 ml @ 200 mls/hr IVPB Q12H [facility] Rx#:[id number] Output: Urine 1400 750 Straight 1400 Other: Voiding Method Toilet Bedside Commode Self-Catheterization # Bowel Movements 6 - Exam - Constitutional General appearance: no acute distress - EENT Eyes: edentulous, PERRLA ENT: hard of hearing - Neck Neck: no lymphadenopathy - Respiratory Respiratory: bilateral: CTA - Cardiovascular Rhythm: regular - Gastrointestinal General gastrointestinal: no distended, soft, no tenderness - Integumentary Integumentary: pale, no rash - Neurologic Neurologic: CNII-XII intact - Musculoskeletal Musculoskeletal: strength equal bilaterally - Psychiatric Psychiatric: A&O x's 3, inappropriate affect, lethargic, extremly anxious - Labs CBC & Chem 7: 08/21/20 07:24 08/21/20 07:24 Labs: Abnormal Lab Results - Last 24 Hours (Table) 08/21/20 08/21/20 Range/Units 07:24 07:24 WBC 14.1 H (3.8-10.6) k/uL RBC 3.39 L (3.80-5.40) m/uL Hgb 8.7 L (11.4-16.0) gm/dL Hct 26.7 L (34.0-46.0) % MCV 78.7 L (80.0-100.0) fL RDW 15.9 H (11.5-15.5) % Neutrophils # 11.7 H (1.3-7.7) k/uL Creatinine 1.33 H (0.52-1.04) mg/dL Glucose 105 H (74-99) mg/dL Microbiology - Last 24 Hours (Table) 08/15/20 18:35 Blood Culture - Preliminary Blood No Growth after 120 hours Assessment and Plan Plan: Initial presentation with abdominal pain. Diagnosed with cervical cancer in June. She self catheterizes for urinary retention. Admits to Nausea and vomiting as well, which is improved since admission - Patient had bilateral ureteral stents placed on 06/25/2020. IV Antibiotics Cervical Cancer: Near Obstructing Rectal Mass The right ureteral stent appears more inferior than last exam. CT of the abdomen and pelvis: There is some minimal reticular nodular infiltrate at the lung bases. Extensive inflammatory changes in the pelvis with perirectal density measuring up to almost 3 cm in thickness. This is worse than last exam. Consider both inflammatory disease and malignancy. There is bilateral moderate hydronephrosis which appears to same or slightly worse than last exam. Stent malfunction is possible. There is increased reticular nodular interstitial infiltrate the lung bases compared to old exam. 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 - She has not started treatment Plan: - Discussed with General Surgery related to findings during endoscopy, near obstructing mass. Agree with diverting ostomy - Will ask Dr. Alfredo to evaluate for need of radiation. - Await path from todays samples, likely metastatic - MRI Brain to evaluate for brain mets. She is refusing at this time The concern would be that she has had delay from time of diagnosis till now, she stated this has to do with caring for her son as well. Although with the need of surgical intervention with diverting ostomy, systemic therapy will be help for healing. Will discuss plan of action further with Dr. Alfredo (Radiation oncology). Mediport planned at same time at ostomy. <Bunny Reed - Last Filed: 08/22/20 15:01> Objective - Vital Signs Vital signs: Vital Signs Temp 98.3 F 08/22/20 14:00 Pulse 98 08/22/20 14:00 Resp 19 08/22/20 14:00 BP 142/85 08/22/20 14:00 Pulse Ox 90 L 08/22/20 14:00 Intake & Output 08/21/20 08/22/20 08/22/20 18:59 06:59 18:59 Intake Total 1180 200 Output Total 1700 1600 Balance -520 -1400 Intake: IV 100 Oral 1080 200 Output: Urine 1700 1600 Straight 1700 1600 Other: Voiding Method Toilet Toilet Toilet Bedside Commode Bedside Commode Bedside Commode Self-Catheterization Self-Catheterization Self-Catheterization # Voids 3 # Bowel Movements 4 2 - Labs CBC & Chem 7: 08/22/20 06:04 08/22/20 06:04 Labs: Abnormal Lab Results - Last 24 Hours (Table) 08/22/20 08/22/20 Range/Units 06:04 06:04 WBC 13.4 H (3.8-10.6) k/uL RBC 3.44 L (3.80-5.40) m/uL Hgb 8.8 L (11.4-16.0) gm/dL Hct 27.4 L (34.0-46.0) % MCV 79.7 L (80.0-100.0) fL RDW 16.0 H (11.5-15.5) % Neutrophils # 11.2 H (1.3-7.7) k/uL Creatinine 1.36 H (0.52-1.04) mg/dL Glucose 160 H (74-99) mg/dL Microbiology - Last 24 Hours (Table) 08/15/20 18:35 Blood Culture - Final Blood No Growth after 144 hours Assessment and Plan Plan: As above. Pt refuses MRI as states she is claustrophobic and needs full sedation. O/E mental status overall seems to indicate low clinical prob of brain mets. Will order CT w contrast
[2020-08-21] MEDS ORDERED: LORazepam 2 MG/ML INJ IV STA (11:29)
[2020-08-21] MEDS ORDERED: LORazepam 2 MG/ML INJ IV PRN (11:30)
--- NOTE | 2020-08-21 11:51 | PN ---
PROGRESS NOTE Patient is seen for followup for acute kidney injury mostly ATN with an element of volume depletion as well, status post IV fluids. Patient has underlying history of cervical cancer with bilateral hydronephrosis, status post bilateral ureteral stent placement. She has urine retention and is currently being followed by Urology and maintained on straight catheterizations. She has retained about 600-800 mL of urine. This morning, patient is complaining of swelling in her legs. She denies any significant chest pains or shortness of breath. She had been maintained on IV fluids which were decreased yesterday. PHYSICAL EXAMINATION: On examination today, blood pressure was 136/88, heart rate 69 per minute. She is afebrile. EXAMINATION OF THE HEART: S1, S2. EXAMINATION OF THE LUNGS: Bilateral breath sounds are heard. Decreased breath sounds at bases. Abdomen is soft, nontender. Examination of lower extremities shows edema 1+ bilaterally. FLOOR WINDER exam grossly intact. LABS: Labs show sodium 142, potassium 3.8, chloride 107, CO2 is 24, BUN 12, creatinine 1.3, hemoglobin 8.7 g/dL. ASSESSMENT: 1. Acute kidney injury, acute tubular necrosis and component of volume depletion, improved with creatinine staying at 1.3 mg/dL now. She has underlying obstructive uropathy with bilateral ureteral stents. She has had good urine output, but also has urine retention for which she is requiring straight catheterizations. Patient is being followed by Urology. No plans for surgical intervention from a urological standpoint at this time. 2. Cervical cancer stage IIIB. 3. Volume depletion currently improved. 4. Mild volume overload. PLAN: Discontinue IV fluids. Lasix IV x1 today. Repeat labs in a.m. MMODL / IJN: [id number] /
[2020-08-21] MEDS: CEFEPIME 2 GM in SODIUM CHLORIDE 0.9% 100 ML IVPB SCH ×2 (12:02→21:35)
--- NOTE | 2020-08-21 13:33 | P.PN ---
Subjective Progress Note Date: 08/21/20 Sepsis/UTI Locally advanced cervical cancer Bilateral hydronephrosis secondary to urinary obstruction secondary to locally advanced cervical cancer/hemorrhagic cystitis Lamar-rectal density/Rectal wall thickening/proctitis 45-year-old female that presents to emergency with abdominal pain. She was recently diagnosed with cervical cancer. She notes that she self catheterizes for urinary retention. She presents emergency with abdominal pain nausea vomiting. She was in bed in pain and was unable to give accurate answers to examination questions. Patient had bilateral ureteral stents placed on 06/02. She denied any chest pain shortness of breath headache fatigue hematochezia melena. White blood cells 15.1, urinalysis: Bloody, red blood cells greater than 182, white blood cells greater than 182. Cefepime and vancomycin ordered. KUB: Nonacute abdomen. The right ureteral stent appears more inferior than last exam. CT of the abdomen and pelvis: There is some minimal reticular nodular infiltrate at the lung bases. Extensive inflammatory changes in the pelvis with perirectal density measuring up to almost 3 cm in thickness. This is worse than last exam. Consider both inflammatory disease and malignancy. There is bilateral moderate hydronephrosis which appears to same or slightly worse than last exam. Stent malfunction is possible. There is increased reticular nodular interstitial infiltrate the lung bases compared to old exam. 08/16/2020 Patient is seen and evaluated at room at bedside; complained of [id number] distress secondary to uncontrolled pain; pain medications have been adjusted by oncology; patient continues to complain of abdominal pain but significantly improved from yesterday; no complaining of nausea vomiting; patient has a Carbone catheter in Vital signs are reviewed temperature of 98.1 with T-max of 102.4, pulse 118, respiration 18 and blood pressure of 104/64 with SpO2 of 93% on 3 L Laboratory review reveals a WBC of 7.2, hemoglobin of 7.5 and platelet count of 186; sodium of 139, potassium 4.5 and B UN/creatinine of 22/1.7; blood culture preliminary report reveals gram-positive bacillary; urine culture is negative so far Patient has been evaluated by oncology and is recommended to proceed with colonoscopy; continue with broad-spectrum IV antibiotic coverage with cefepime, Flagyl and vancomycin; patient will likely need to be treated with chemotherapy and radiation therapy for cervical cancer; radiation oncology to see patient and make recommendations Renal function is improving with creatinine down to 1.7 from 1.9 yesterday; we will continue with IV fluid hydration and monitor strict SHIRA's, daily weights, renal function and electrolytes; we will consult nephrology for management of renal function since patient need improved renal function prior to starting chemotherapy 08/17/2020 Patient is complaining of also complaining of hematuria patient's hemoglobin did drop to 6.8 we'll transfuse 1 unit of PRBC transfusion patient leukocytosis improved patient's creatinine is improving and presently 1.2. I spent significant amount of time counseling the patient and also explaining her pain patient will be started on long-acting opiate that is fentanyl patch and will continue with [place] as needed as well as morphine as needed but patient doesn't want morphine for pain. sodium to prophylaxis will be discontinued. Aft er the chest x-ray unfortunately I am unable to view the images but was read as previously scheduled disease cannot be ruled out patient is wheezing on exam although patient is apparently ALLERGIC to steroids because of which are just started on inhalational treatments titrating well at 98% on 4 L of oxygen. Patient is not tachycardic anymore. 08/18/2020 Patient is seen in follow-up continues to have multiple complaints of pain and is extremely tearful of her current situation. Patient has had Carbone catheter removed and states she voided and will continue straight catheter if unable to empty the bladder. Urology has evaluated the patient. Multiple medical consultations including surgery, oncology, nephrology, radiation oncology, and infectious disease following. is continued on IV antibiotics in the form of a for pain and Flagyl and will continue at this time. Repeat urine cultures and blood cultures have remained negative. Patient's hemoglobin is 9.2 today status post 1 unit of PRBCs yesterday, white blood count is 10.4, sodium is 137 with a potassium of 4.5. Current creatinine slightly worsened at 1.49 and nephrology is following. Continue with IV fluids at this time. And will repeat labs. Patient continues to have constipation and will continue with lactulose and Colace. Patient is scheduled tentatively to have an EGD and colonoscopy on and will likely start the bowel prep tomorrow. Patient continues to have severe pain and has multiple narcotic medications on board and will discontinue 2 mg of Dilaudid every 3 hours at this time. Patient does have MS Contin and fentanyl on board as well and oncology is following. 08/19/2020 Patient is seen in follow-up continues to be in pain stating "everywhere". Patient continues to have rectal tenderness and fecal incontinence and is currently wearing a brief. plans are for EGD colonoscopy with surgery tomorrow and bowel prep will start today. Patient is having loose gelatinous beard-colored loose stool and will obtain C. diff specimen. Patient's white count is slightly elevated at 11.99, hemoglobin is 8.6 with no active bleeding noted, sodium 137, potassium 4.1, creatinine 1.3. Patient is maintained on IV hydration and will continue. Nephrology following. Patient underwent abdominal series x-ray yesterday showing a kinking of the right ureteral stent with nonobstructive bowel gas pattern in no acute cardiopulmonary abnormalities. Patient also had a lumbar x-ray as she had recently fallen prior to admission showing mild spondylosis without acute osseous abnormality with no fractures or subluxations noted. Patient continues to refuse Carbone catheter stating it was causing immen se pain and not tolerating straight catheterization per nursing staff. Urology is following. 08/20/2020 Patient is seen this morning continues to be tearful and out of sorts and having difficulty with urination. Patient is supposed to be using straight catheter and self catheterization although states she was never educated on this and is having difficulties. Urology has educated the patient and nursing staff will continue to attempt to educate. Patient was started on the bowel prep yesterday and apparently throughout the night did not continue and states she was not told to do so in the EGD/colonoscopy is being rescheduled for tomorrow morning. Patient will continue on clear liquids and continue with the bowel prep and be nothing by mouth at midnight. Multiple medical consultations following. Patient is maintained on IV antibiotics and will continue. Patient is afebrile although white blood count is on an upward trend today at 17.2 and hemoglobin is stable at 9.3 with no active bleeding noted. Creatinine slightly elevated at 1.37 and will repeat labs in continue to monitor. Patient continues on 4 L of oxygen with a 99% oxygen saturation and does have breathing treatments ordered but is refusing at this time. Patient does use inhalers in the outpatient setting as needed. 08/21/2020 Patient is seen this morning status post EGD colonoscopy and biopsies were obtained from the EGD along with colonoscopy and a large almost completely obstructing colon mass was noted and plans are for surgical intervention on Monday of a diverting colostomy. Multiple medical consultations following. Creatinine slightly improved at 1.33 today and will discontinue IV fluids, potassium is 3.8, sodium is 142. White blood count trending down at 14.1 and hemoglobin is 8.7 and will continue to monitor with repeat labs in the morning. No active bleeding is noted. Patient continues to require straight catheterization for urinary retention as she is refusing indwelling Carbone [address] and needs continuous education on learning how to self catheter and nursing staff continues to work with her and educate her on this process. Patient Is extremely anxious and tearful and psychiatry was consulted. Patient continues on cefepime and Flagyl IV with infectious disease following. Constitutional: Denied any fatigue denied any fever. Reports extreme anxiety Cardio vascular: denied any chest pain, palpitations Gastrointestinal denied any nausea vomiting, reports continued loose stools and fecal incontinence Pulmonary: Reports shortness of breath Neurologic denied any new focal deficits All inpatient medications were reviewed and appropriate changes in these medications as dictated in the interval history and assessment and plan. Objective - Vital Signs Vital signs: Vital Signs Temp 97.6 F 08/21/20 07:50 Pulse 97 08/21/20 07:50 Resp 16 08/21/20 07:50 BP 132/87 08/21/20 07:50 Pulse Ox 97 08/21/20 07:50 Intake & Output 08/20/20 08/21/20 08/21/20 18:59 06:59 18:59 Intake Total 200 100 Output Total 1400 750 Balance -1200 -750 100 Weight 90.718 kg Intake: IV 200 100 Cefepime 2 gm In Sodium 200 Chloride 0.9% 100 ml @ 200 mls/hr IVPB Q12H [facility] Rx#:[id number] Output: Urine 1400 750 Straight 1400 Other: Voiding Method Toilet Bedside Commode Self-Catheterization # Bowel Movements 6 - Exam GENERAL: The patient is alert and oriented x3, not in any acute distress. Tearful and anxious. Well developed, well nourished. HEENT: Pupils are round and equally reacting to light. EOMI. No scleral icterus. No conjunctival pallor. Normocephalic, atraumatic. No pharyngeal erythema. No thyromegaly. CARDIOVASCULAR: S1 and S2 present. No murmurs, rubs, or gallops. PULMONARY: Diminished breath sounds with some bilateral scattered rhonchi ABDOMEN: Soft, nontender, nondistended, normoactive bowel sounds. No palpable organomegaly. MUSCULOSKELETAL: No joint swelling or deformity. EXTREMITIES: No cyanosis, clubbing, or pedal edema. NEUROLOGICAL: Gross neurological examination did not reveal any focal deficits. SKIN: No rashes. - Labs CBC & Chem 7: 08/21/20 07:24 08/21/20 07:24 Labs: Abnormal Lab Results - Last 24 Hours (Table) 08/21/20 08/21/20 Range/Units 07:24 07:24 WBC 14.1 H (3.8-10.6) k/uL RBC 3.39 L (3.80-5.40) m/uL Hgb 8.7 L (11.4-16.0) gm/dL Hct 26.7 L (34.0-46.0) % MCV 78.7 L (80.0-100.0) fL RDW 15.9 H (11.5-15.5) % Neutrophils # 11.7 H (1.3-7.7) k/uL Creatinine 1.33 H (0.52-1.04) mg/dL Glucose 105 H (74-99) mg/dL Microbiology - Last 24 Hours (Table) 08/15/20 18:35 Blood Culture - Preliminary Blood No Growth after 120 hours Assessment and Plan Assessment: -Abdominal pain with lamar-rectal density/thickness, patient is being treated for colitis. CT abdomen reveals inflammatory changes and rectal area; possibly secondary to inflammation versus related to cervical cancer; surgery also following and patient underwent EGD colonoscopy with mild gastritis and large rectal mass almost obstructing noted with multiple biopsies obtained. -Large rectal mass as noted on colonoscopy; surgery following a planning div erting colostomy on Monday and multiple biopsies obtained of the mass -Urinary obstruction/hydronephrosis; possible stent malfunctioning; urology on board and recommending a double-J catheter in the near future in the outpatient setting and recommending to continue with straight catheterization and educating the patient on straight cathing as patient will likely need to do this at home. Continued resistance from the patient stating she has not being educated properly. Discussed with nursing staff about continuing to attempt educating -Hemorrhagic Cystitis; patient was evaluated by urology and is recommending double-J catheters due to cervical cancer in the outpatient setting; urine culture remains negative -Cervical cancer oncology following and will need close outpatient follow-up. Patient states her gynecological oncologist is out of [facility] -Acute renal injury/ dehydration, improving, nephrology following and will discontinue IV fluids -Acute blood loss and anemia from possible hematuria, no bleeding noted. hemoglobin is 8.7 -Shortness of breath: Probably secondary to COPD acute exacerbation. Currently using 2 L of oxygen with oxygen saturations of 97% and nursing staff is weaning as tolerated. Patient continues to refuse ordered breathing treatments stating she needs to see her account services specialist prior to using this and continues to have shortness of breath -Pain management: Patient was started on longer acting opiate fentanyl patch along with the [place] and oral morphine for breakthrough pain will try to wean off IV Dilaudid. Oncology managing pain medications. -DVT prophylaxis -GI prophylaxis -Full code Plan: Continue current medications and current IV antibiotic therapy. Instructed the patient to increase activity as tolerated. Wean FiO2 as tolerated and discussed with nursing staff. Multiple medical consultations following. Patient underwent EGD showing mild gastritis with biopsies obtained and also colonoscopy revealing a large rectal mass almost obstructing with multiple biopsies obtained and plans are for surgery to perform diverting colostomy on Monday. Repeat labs in continue to monitor closely.
--- NOTE | 2020-08-21 16:33 | PN ---
PROGRESS NOTE DATE OF SERVICE: 08/21/2020 REASON FOR FOLLOWUP: Complicated UTI and proctitis. INTERVAL HISTORY: The patient is status post EGD colonoscopy with evidence of obstructive rectal mass completed. The patient has been complaining of lower abdominal pain, nausea but no vomiting. No chest pain. Some shortness of breath. Occasional cough. PHYSICAL EXAMINATION: Blood pressure 136/81 with a pulse of 111, temperature 98.4. She is 91% on 2 L nasal cannula. General description is a middle-aged female lying in bed in no distress. RESPIRATORY SYSTEM: Unlabored breathing, clear to auscultation anteriorly. HEART: S1, S2. Regular rate and rhythm. ABDOMEN: Soft, mildly tender. No guarding or rigidity. LABS: Hemoglobin 8.7, white count 14.1, BUN of 12, creatinine 1.33. DIAGNOSTIC IMPRESSION AND PLAN: 1. Patient with positive blood culture diphtheroid species, likely contaminant. Repeat culture negative. 2. Patient with complicated urinary tract infection and rectal mass with a history of cervical cancer and metastatic disease. The patient is covered with cefepime and Flagyl because of her allergies to continue and monitor clinical course closely. Continue supportive care. MMODL / IJN: [id number] /
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
[2020-08-22] MEDS: metroNIDAZOLE-NS PMX 500 MG in SALINE 1 100ML.BAG IVPB SCH ×3 (02:06→16:53)
[2020-08-22] MEDS: HYDROmorphone 2 MG TAB PO PRN ×7 (02:56→21:57)
[2020-08-22] MEDS: ONDANSETRON 4 MG/2 ML VIAL IVP PRN (03:01)
[2020-08-22] MEDS: CYCLOBENZAPRINE 5 MG TAB PO PRN ×3 (04:05→20:40)
[2020-08-22 06:59] LABS: Anisocytosis Slight; Basophils # (A) 0.1 k/uL (0-0.2); Basophils % (A) 1 %; Eosinophils # (A) 0.1 k/uL (0-0.7); Eosinophils % (A) 0 %; HCT 27.4 % (34.0-46.0); HGB 8.8 gm/dL (11.4-16.0); Hypochromasia Moderate; Lymphocytes # (A) 1.2 k/uL (1.0-4.8); Lymphocytes % (A) 9 %; MCH 25.5 pg (25.0-35.0); MCV 79.7 fL (80.0-100.0); Monocytes # (A) 0.7 k/uL (0-1.0); Monocytes % (A) 5 %; Neutrophils # (A) 11.2 k/uL (1.3-7.7); Neutrophils % (A) 84 %; Platelet Count 237 k/uL (150-450); RBC 3.44 m/uL (3.80-5.40); WBC 13.4 k/uL (3.8-10.6)
[2020-08-22 07:09] LABS: African American GFR (CKD) 55 (>60 ml/min/1.73 sqM); Anion Gap 10 mmol/L; Blood Urea Nitrogen 13 mg/dL (7-17); Calcium 8.6 mg/dL (8.4-10.2); Carbon Dioxide 26 mmol/L (22-30); Chloride 104 mmol/L (98-107); Glucose 160 mg/dL (74-99); Non-African American GFR(CKD) 47 (>60 ml/min/1.73 sqM); Potassium 3.7 mmol/L (3.5-5.1); Sodium 140 mmol/L (137-145)
[2020-08-22] MEDS: IPRATROPIUM-ALBUTEROL 3 ML NEB INHALATION SCH ×4 (07:21→20:55)
[2020-08-22] MEDS: CEFEPIME 2 GM in SODIUM CHLORIDE 0.9% 100 ML IVPB SCH ×2 (08:07→20:39)
[2020-08-22] MEDS: DOCUSATE 100 MG CAP PO SCH ×2 (08:11→20:40)
[2020-08-22] MEDS: FAMOTIDINE 20 MG TAB PO SCH ×2 (09:01→20:40)
--- NOTE | 2020-08-22 10:47 | P.PN ---
Subjective Progress Note Date: 08/22/20 Principal diagnosis: This is a 45-year-old female seen in consultation because of acute kidney injury, secondary to both ureteral obstruction status post bilateral stenting since approximately June 2020 as well as outlet obstruction needing straight catheterization. She has a mass in her pelvis with carcinoma of the cervix and surgery is planning a diverting ostomy. She is in pain both in the abdominal area especially lower abdomen as well as bilateral flank. No fever chills nausea vomiting. Vital signs are stable blood pressure in the 120-140 range afebrile heart rate in the 90s to 110 urine output is 2-3 L per day. Creatinine down to 1.3 and stable Objective - Vital Signs Vital signs: Vital Signs Temp 98.0 F 08/22/20 07:47 Pulse 110 H 08/22/20 07:47 Resp 22 08/22/20 07:47 BP 149/85 08/22/20 07:47 Pulse Ox 93 L 08/22/20 07:47 Intake & Output 08/21/20 08/22/20 08/22/20 18:59 06:59 18:59 Intake Total 1180 200 Output Total 1700 1600 Balance -520 -1400 Intake: IV 100 Oral 1080 200 Output: Urine 1700 1600 Straight 1700 1600 Other: Voiding Method Toilet Toilet Toilet Bedside Commode Bedside Commode Bedside Commode Self-Catheterization Self-Catheterization Self-Catheterization # Voids 3 # Bowel Movements 4 2 GEN she is in pain awake alert oriented but looks somewhat depressed HEENT exam no JVP neck is supple no facial asymmetry Lungs are clear to auscultation good air entry bilaterally Heart sounds unremarkable for any murmur rub gallop Abdomen soft with some tenderness medially all over as well as renal angle tenderness Extremity exam was no edema Neurologically awake alert oriented. - Labs CBC & Chem 7: 08/22/20 06:04 08/22/20 06:04 Labs: Abnormal Lab Results - Last 24 Hours (Table) 08/22/20 08/22/20 Range/Units 06:04 06:04 WBC 13.4 H (3.8-10.6) k/uL RBC 3.44 L (3.80-5.40) m/uL Hgb 8.8 L (11.4-16.0) gm/dL Hct 27.4 L (34.0-46.0) % MCV 79.7 L (80.0-100.0) fL RDW 16.0 H (11.5-15.5) % Neutrophils # 11.2 H (1.3-7.7) k/uL Creatinine 1.36 H (0.52-1.04) mg/dL Glucose 160 H (74-99) mg/dL Microbiology - Last 24 Hours (Table) 08/15/20 18:35 Blood Culture - Final Blood No Growth after 144 hours Assessment and Plan Assessment: Impression 1. Bilateral hydronephrosis with both ureteral obstruction with stents bilaterally since June 2020 as well as outlet obstruction needing straight catheterization with acute kidney injury. Creatinine improved from a peak of 1.84-1.36. 2. Anemia hemoglobin is 8.8 from chronic illness 3. Ovarian cancer with obstruction of both ureters as well as outlet obstruction with a mass in the pelvis, surgery is considering a diverting ostomy on Monday the after tomorrow 4. Computed tomography scan also shows lung infiltrate and possible metastatic disease Recommendation 1. No changes in medication will continue follow 2.
--- NOTE | 2020-08-22 13:38 | P.PN ---
Subjective Progress Note Date: 08/22/20 CHIEF COMPLAINT: Large bowel obstruction HISTORY OF PRESENT ILLNESS: The patient is a 45-year-old female with metastatic cervical cancer including a rectal cancer. She is tolerating liquid diet. She has pre-existing large bowel obstruction. ROS: No reports of nausea and vomiting. No fevers or chills. No new chest pain. No productive sputum PHYSICAL EXAM: VITAL SIGNS: Reviewed CONSTITUTIONAL: Well developed and in no acute distress. EYES: Conjuctivae without sclera icterus. Extraocular movements grossly intact. HEAD, EARS, NOSE, THROAT: Moist buccal mucosa. Head is atraumatic, normoc ephalic. Hears conversational speech. No nasal drainage. NECK: Supple. No thyroidomegaly. RESPIRATORY: Non-labored respirations and equal bilateral excursions. CARDIOVASCULAR: Palpable 2+ radial pulses. ABDOMEN: No peritonitis. MUSCULOSKELETAL: No gross deformity of the lower extremities noted. No clubbing. No cyanosis. SKIN: Good skin turgor. Well perfused. NEUROLOGIC: Cranial nerves II through XII grossly intact. No focal or lateralizing signs. PSYCH: Appropriate affect. Alert and oriented to person, place and time. STUDIES: Reviewed. CT of the abdomen and pelvis reviewed demonstrating thickening along the rectum. No free air. No small bowel obstruction. This is my independent interpretation. REPORT: EGD colonoscopy report from 08/21/2020 demonstrates obstructing lesion along the rectum. CLINICAL LABS: Reviewed. WBC down from 14-13,000. ASSESSMENT: 1. Obstructing rectal cancer. 2. Metastatic cervical cancer. PLAN: 1. With obstructing cancer, recommend diverting colostomy. Objective - Vital Signs Vital signs: Vital Signs Temp 98.0 F 08/22/20 07:47 Pulse 110 H 08/22/20 07:47 Resp 22 08/22/20 07:47 BP 149/85 08/22/20 07:47 Pulse Ox 93 L 08/22/20 07:47 Intake & Output 08/21/20 08/22/20 08/22/20 18:59 06:59 18:59 Intake Total 1180 200 Output Total 1700 1600 Balance -520 -1400 Intake: IV 100 Oral 1080 200 Output: Urine 1700 1600 Straight 1700 1600 Other: Voiding Method Toilet Toilet Toilet Bedside Commode Bedside Commode Bedside Commode Self-Catheterization Self-Catheterization Self-Catheterization # Voids 3 # Bowel Movements 4 2 - Labs CBC & Chem 7: 08/22/20 06:04 08/22/20 06:04 Labs: Abnormal Lab Results - Last 24 Hours (Table) 08/22/20 08/22/20 Range/Units 06:04 06:04 WBC 13.4 H (3.8-10.6) k/uL RBC 3.44 L (3.80-5.40) m/uL Hgb 8.8 L (11.4-16.0) gm/dL Hct 27.4 L (34.0-46.0) % MCV 79.7 L (80.0-100.0) fL RDW 16.0 H (11.5-15.5) % Neutrophils # 11.2 H (1.3-7.7) k/uL Creatinine 1.36 H (0.52-1.04) mg/dL Glucose 160 H (74-99) mg/dL Microbiology - Last 24 Hours (Table) 08/15/20 18:35 Blood Culture - Final Blood No Growth after 144 hours Assessment and Plan (1) Rectal adenocarcinoma Current Visit: Yes Status: Acute Code(s): C20 - MALIGNANT NEOPLASM OF RECTUM SNOMED Code(s): 425869444 (2) Metastasis from cervical cancer Current Visit: Yes Status: Acute Code(s): C79.9 - SECONDARY MALIGNANT NEOPLASM OF UNSPECIFIED SITE; C53.9 - MALIGNANT NEOPLASM OF CERVIX UTERI, UNS PECIFIED SNOMED Code(s): 114470414
--- NOTE | 2020-08-22 14:19 | P.PN ---
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 She presented to the hospital with abdominal pain, constipation and concern for urinary infection. The patient was seen in the afternoon of Monday the . Earlier in the day, she underwent a colonoscopy which revealed a near obstructing rectal mass. The scope could not be traversed past this area. The patient expressed understanding of the surgical findings. Although biopsy is pending, this is highly likely to be secondary to direct invasion of her cervical carcinoma. The patient states she was able to move her bowels after completing the colonoscopy prep. However, the stool was liquid. She has been recommended to undergo a diverting colostomy which is scheduled for Monday. Objective - Vital Signs Vital signs: Vital Signs Temp 98.0 F 08/22/20 07:47 Pulse 110 H 08/22/20 07:47 Resp 22 08/22/20 07:47 BP 149/85 08/22/20 07:47 Pulse Ox 93 L 08/22/20 07:47 Intake & Output 08/21/20 08/22/20 08/22/20 18:59 06:59 18:59 Intake Total 1180 200 Output Total 1700 1600 Balance -520 -1400 Intake: IV 100 Oral 1080 200 Output: Urine 1700 1600 Straight 1700 1600 Other: Voiding Method Toilet Toilet Toilet Bedside Commode Bedside Commode Bedside Commode Self-Catheterization Self-Catheterization Self-Catheterization # Voids 3 # Bowel Movements 4 2 - Constitutional General appearance: Present: disheveled, no acute distress - EENT Eyes: Present: EOMI, PERRLA ENT: Present: hearing grossly normal - Neck Neck: Absent: lymphadenopathy - Respiratory Respiratory: bilateral: CTA - Cardiovascular Rhythm: regular - Gastrointestinal General gastrointestinal: Absent: distended, tenderness - Integumentary Integumentary: Present: pale. Absent: rash - Neurologic Neurologic: Present: CNII-XII intact - Musculoskeletal Musculoskeletal: Present: generalized weakness - Psychiatric Psychiatric: Present: A&O x's 3. Absent: appropriate affect (Very drowsy) - Labs CBC & Chem 7: 08/22/20 06:04 08/22/20 06:04 Labs: Abnormal Lab Results - Last 24 Hours (Table) 08/22/20 08/22/20 Range/Units 06:04 06:04 WBC 13.4 H (3.8-10.6) k/uL RBC 3.44 L (3.80-5.40) m/uL Hgb 8.8 L (11.4-16.0) gm/dL Hct 27.4 L (34.0-46.0) % MCV 79.7 L (80.0-100.0) fL RDW 16.0 H (11.5-15.5) % Neutrophils # 11.2 H (1.3-7.7) k/uL Creatinine 1.36 H (0.52-1.04) mg/dL Glucose 160 H (74-99) mg/dL Microbiology - Last 24 Hours (Table) 08/15/20 18:35 Blood Culture - Final Blood No Growth after 144 hours Assessment and Plan Assessment: The patient is a 45-year-old female with a recently diagnosed squamous cell ca rcinoma of the cervix likely clinical stage JORGE due to rectal invasion. She presented to the hospital with abdominal pain, constipation and concern for urinary infection. Plan: 1. Cervical carcinoma: Based on results of colonoscopy, her disease is likely 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 She does not have any evidence of distant metastasis. Her treatment would still be considered potentially curative, however it is concerning how she has had several delays to care initiation. The patient will likely require diverting colostomy secondary to a near obstructing rectal extension from her cervical cancer. This unfortunately will also slightly delay her treatment, which would involve chemotherapy and radiation concurrently. We will plan to have the patient undergo CT simulation for treatment planning after she undergoes her diverting colostomy. We will look to start the patient's treatment as soon as it is safe to do so. It may be reasonable to have the patient complete a few treatments of radiation while waiting the initiation of cisplatin. During this examination and the previous one, the patient was frequently nodding off. Appreciate medical oncology working to adjust her pain regimen. Concerned that the patient clinically is becoming overmedicated, however she still frequently complains of abdominal pain Time with Patient: Less than 30
--- NOTE | 2020-08-22 16:12 | P.PN ---
Subjective Progress Note Date: 08/22/20 Sepsis/UTI Locally advanced cervical cancer Bilateral hydronephrosis secondary to urinary obstruction secondary to locally advanced cervical cancer/hemorrhagic cystitis Lamar-rectal density/Rectal wall thickening/proctitis 45-year-old female that presents to emergency with abdominal pain. She was recently diagnosed with cervical cancer. She notes that she self catheterizes for urinary retention. She presents emergency with abdominal pain nausea vomiting. She was in bed in pain and was unable to give accurate answers to examination questions. Patient had bilateral ureteral stents placed on 2020. She denied any chest pain shortness of breath headache fatigue hematochezia melena. White blood cells 15.1, urinalysis: Bloody, red blood cells greater than 182, white blood cells greater than 182. Cefepime and vancomycin ordered. KUB: Nonacute abdomen. The right ureteral stent appears more inferior than last exam. CT of the abdomen and pelvis: There is some minimal reticular nodular infiltrate at the lung bases. Extensive inflammatory changes in the pelvis with perirectal density measuring up to almost 3 cm in thickness. This is worse than last exam. Consider both inflammatory disease and malignancy. There is bilateral moderate hydronephrosis which appears to same or slightly worse than last exam. Stent malfunction is possible. There is increased reticular nodular interstitial infiltrate the lung bases compared to old exam. 08/16/2020 Patient is seen and evaluated at room at bedside; complained of [id number] distress secondary to uncontrolled pain; pain medications have been adjusted by oncology; patient continues to complain of abdominal pain but significantly improved from yesterday; no complaining of nausea vomiting; patient has a Carbone catheter in Vital signs are reviewed temperature of 98.1 with T-max of 102.4, pulse 118, respiration 18 and blood pressure of 104/64 with SpO2 of 93% on 3 L Laboratory review reveals a WBC of 7.2, hemoglobin of 7.5 and platelet count of 186; sodium of 139, potassium 4.5 and B UN/creatinine of 22/1.7; blood culture preliminary report reveals gram-positive bacillary; urine culture is negative so far Patient has been evaluated by oncology and is recommended to proceed with colonoscopy; continue with broad-spectrum IV antibiotic coverage with cefepime, Flagyl and vancomycin; patient will likely need to be treated with chemotherapy and radiation therapy for cervical cancer; radiation oncology to see patient and make recommendations Renal function is improving with creatinine down to 1.7 from 1.9 yesterday; we will continue with IV fluid hydration and monitor strict SHIRA's, daily weights, renal function and electrolytes; we will consult nephrology for management of renal function since patient need improved renal function prior to starting chemotherapy 08/17/2020 Patient is complaining of also complaining of hematuria patient's hemoglobin did drop to 6.8 we'll transfuse 1 unit of PRBC transfusion patient leukocytosis improved patient's creatinine is improving and presently 1.2. I spent significant amount of time counseling the patient and also explaining her pain patient will be started on long-acting opiate that is fentanyl patch and will continue with [place] White as needed as well as morphine as needed but patient doesn't want morphine for pain. sodium to prophylaxis will be discontinued. After the chest x-ray unfortunately I am unable to view the images but was read as previously scheduled disease cannot be ruled out patient is wheezing on exam although patient is apparently ALLERGIC to steroids because of which are just started on inhalational treatments titrating well at 98% on 4 L of oxygen. Patient is not tachycardic anymore. 08/18/2020 Patient is seen in follow-up continues to have multiple complaints of pain and is extremely tearful of her current situation. Patient has had Carbone catheter removed and states she voided and will continue straight catheter if unable to empty the bladder. Urology has evaluated the patient. Multiple medical consultations including surgery, oncology, nephrology, radiation oncology, and infectious disease following. is continued on IV antibiotics in the form of a for pain and Flagyl and will continue at this time. Repeat urine cultures and blood cultures have remained negative. Patient's hemoglobin is 9.2 today status post 1 unit of PRBCs yesterday, white blood count is 10.4, sodium is 137 with a potassium of 4.5. Current creatinine slightly worsened at 1.49 and nephrology is following. Continue with IV fluids at this time. And will repeat labs. Patient continues to have constipation and will continue with lactulose a nd Colace. Patient is scheduled tentatively to have an EGD and colonoscopy on and will likely start the bowel prep tomorrow. Patient continues to have severe pain and has multiple narcotic medications on board and will discontinue 2 mg of Dilaudid every 3 hours at this time. Patient does have MS Contin and fentanyl on board as well and oncology is following. 08/19/2020 Patient is seen in follow-up continues to be in pain stating "everywhere". Patient continues to have rectal tenderness and fecal incontinence and is currently wearing a brief. plans are for EGD colonoscopy with surgery tomorrow and bowel prep will start today. Patient is having loose gelatinous beard-colored loose stool and will obtain C. diff specimen. Patient's white count is slightly elevated at 11.99, hemoglobin is 8.6 with no active bleeding noted, sodium 137, potassium 4.1, creatinine 1.3. Patient is maintained on IV hydration and will continue. Nephrology following. Patient underwent abdominal series x-ray yesterday showing a kinking of the right ureteral stent with nonobstructive bowel gas pattern in no acute cardiopulmonary abnormalities. Patient also had a lumbar x-ray as she had recently fallen prior to admission showing mild spondylosis without acute osseous abnormality with no fractures or subluxations noted. Patient continues to refuse Carbone catheter stating it was causing immense pain and not tolerating straight catheterization per nursing staff. Urology is following. 08/20/2020 Patient is seen this morning continues to be tearful and out of sorts and having difficulty with urination. Patient is supposed to be using straight catheter and self catheterization although states she was never educated on this and is having difficulties. Urology has educated the patient and nursing staff will continue to attempt to educate. Patient was started on the bowel prep yesterday and apparently throughout the night did not continue and states she was not told to do so in the EGD/colonoscopy is being rescheduled for tomorrow morning. Patient will continue on clear liquids and continue with the bowel prep and be nothing by mouth at midnight. Multiple medical consultations following. Patient is maintained on IV antibiotics and will continue. Patient is afebrile although white blood count is on an upward trend today at 17.2 and hemoglobin is stable at 9.3 with no active bleeding noted. Creatinine slightly elevated at 1.37 and will repeat labs in continue to monitor. Patient continues on 4 L of oxygen with a 99% oxygen saturation and does have breathing treatments ordered but is refusing at this time. Patient does use inhalers in the outpatient setting as needed. 08/21/2020 Patient is seen this morning status post EGD colonoscopy and biopsies were obtained from the EGD along with colonoscopy and a large almost completely obstructing colon mass was noted and plans are for surgical intervention on Monday of a diverting colostomy. Multiple medical consultations following. Creatinine slightly improved at 1.33 today and will discontinue IV fluids, potassium is 3.8, sodium is 142. White blood count trending down at 14.1 and hemoglobin is 8.7 and will continue to monitor with repeat labs in the morning. No active bleeding is noted. Patient continues to require straight catheterization for urinary retention as she is refusing indwelling Carbone catheter and needs continuous education on learning how to self catheter and nursing staff continues to work with her and educate her on this process. Patient Is extremely anxious and tearful and psychiatry was consulted. Patient continues on cefepime and Flagyl IV with infectious disease following. 08/22/2020 Patient seen on follow-up, she is resting comfortably, , creatinine stable 1.3 fluids are hep-locked at this time. White count continues to come to 13.4 today. No fever, hemodynamically stable saturating above 90% on 2 L nasal cannula. Receiving antimicrobial therapy with cefepime and Flagyl. Constitutional: Denied any fatigue denied any fever. Reports extreme anxiety Cardio vascular: denied any chest pain, palpitations Gastrointestinal denied any nausea vomiting, reports continued loose stools and fecal incontinence Pulmonary: Reports shortness of breath Neurologic denied any new focal deficits All inpatient medications were reviewed and appropriate changes in these medications as dictated in the interval history and assessment and plan. Objective - Vital Signs Vital signs: Vital Signs Temp 98.3 F 08/22/20 14:00 Pulse 98 08/22/20 14:00 Resp 19 08/22/20 14:00 BP 142/85 08/22/20 14:00 Pulse Ox 90 L 08/22/20 14:00 Intake & Output 08/21/20 08/22/20 08/22/20 18:59 06:59 18:59 Intake Total 1180 200 Output Total 1700 1600 Balance -520 -1400 Intake: IV 100 Oral 1080 200 Output: Urine 1700 1600 Straight 1700 1600 Other: Voiding Method Toilet Toilet Toilet Bedside Commode Bedside Commode Bedside Commode Self-Catheterization Self-Catheterization Self-Catheterization # Voids 3 # Bowel Movements 4 2 - Exam GENERAL: The patient is alert and oriented x3, not in any acute distress. Tearful and anxious. Well developed, well nourished. HEENT: Pupils are round and equally reacting to light. EOMI. No scleral icterus. No conjunctival pallor. Normocephalic, atraumatic. No pharyngeal erythema. No thyromegaly. CARDIOVASCULAR: S1 and S2 present. No murmurs, rubs, or gallops. PULMONARY: Diminished breath sounds with some bilateral scattered rhonchi ABDOMEN: Soft, nontender, nondistended, normoactive bowel sounds. No palpable organomegaly. MUSCULOSKELETAL: No joint swelling or deformity. EXTREMITIES: No cyanosis, clubbing, or pedal edema. NEUROLOGICAL: Gross neurological examination did not reveal any focal deficits. SKIN: No rashes. - Labs - Labs CBC & Chem 7: 08/22/20 06:04 08/22/20 06:04 Labs: Abnormal Lab Results - Last 24 Hours (Table) 08/22/20 08/22/20 Range/Units 06:04 06:04 WBC 13.4 H (3.8-10.6) k/uL RBC 3.44 L (3.80-5.40) m/uL Hgb 8.8 L (11.4-16.0) gm/dL Hct 27.4 L (34.0-46.0) % MCV 79.7 L (80.0-100.0) fL RDW 16.0 H (11.5-15.5) % Neutrophils # 11.2 H (1.3-7.7) k/uL Creatinine 1.36 H (0.52-1.04) mg/dL Glucose 160 H (74-99) mg/dL Microbiology - Last 24 Hours (Table) 08/15/20 18:35 Blood Culture - Final Blood No Growth after 144 hours Assessment and Plan Assessment: Assessment and Plan Assessment: -Abdominal pain with lamar-rectal density/thickness, patient is being treated for colitis. CT abdomen reveals inflammatory changes and rectal area; possibly secondary to inflammation versus related to cervical cancer; surgery also following and patient underwent EGD colonoscopy with mild gastritis and large rectal mass almost obstructing noted with multiple biopsies obtained. -Large rectal mass as noted on colonoscopy; surgery following a planning diverting colostomy on Monday and multiple biopsies obtained of the mass -Urinary obstruction/hydronephrosis; possible stent malfunctioning; urology on board and recommending a double-J catheter in the near future in the outpatient setting and recommending to continue with straight catheterization and educating the patient on straight cathing as patient will likely need to do this at home. Continued resistance from the patient stating she has not being educated properly. Discussed with nursing staff about continuing to attempt educating -Hemorrhagic Cystitis; patient was evaluated by urology and is recommending double-J catheters due to cervical cancer in the outpatient setting; urine culture remains negative -Cervical cancer oncology following and will need close outpatient follow-up. Patient states her gynecological oncologist is out of [facility] -Acute renal injury/ dehydration, improving, nephrology following: -Acute blood loss and anemia from possible hematuria, no bleeding noted. hemoglobin is 8.7 -Shortness of breath: Probably secondary to COPD acute exacerbation. Currently using 2 L of oxygen with oxygen saturations of 97% and nursing staff is weaning as tolerated. 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 Oncology managing pain medications. -DVT prophylaxis -GI prophylaxis -Full code Plan: Continue current medications and current IV antibiotic therapy with cefepime and Flagyl. Instructed the patient to increase activity as tolerated. Wean FiO2 as tolerated and discussed with nursing staff. Multiple medical consultations following. Patient underwent EGD showing mild gastritis with biopsies obtained and also colonoscopy revealing a large rectal mass almost obstructing with multiple biopsies obtained and plans are for surgery to perform diverting colostomy on Monday. Repeat labs in continue to monitor closely.
--- NOTE | 2020-08-22 23:55 | PN ---
PROGRESS NOTE DATE OF SERVICE: 08/22/2020 REASON FOR FOLLOWUP: Complicated UTI and colitis and proctitis. INTERVAL HISTORY: Patient is afebrile. The patient has been breathing slightly comfortably. The patient denies any chest pain. Occasional cough. Recommend lower abdominal pain. No nausea, no vomiting. PHYSICAL EXAMINATION: Blood pressure is 142/85, pulse of 90, temperature 98.3. She is 98% on 2 L nasal cannula. General description is a middle-aged female up in the room in no distress. Respiratory system: Unlabored breathing, decreased intensity of breath sounds, with no wheeze heart S1, S2. Regular rate and rhythm. ABDOMEN: Soft, mildly tender. No guarding. No rigidity. LABS: Hemoglobin 13.4, BUN of 13, creatinine 1.36. DIAGNOSTIC IMPRESSION AND PLAN: 1. Patient positive blood culture with diphtheroids. The patient currently a contaminate. Repeat blood cultures negative. 2. Patient with a complicated urinary tract infection and evidence of bronchitis with metastatic stomach cancer. Plan for surgery, possible diverting colostomy. The patient at this time to continue with cefepime, Flagyl. White count showing a downward trend. 3. Family at the bedside. Questions were answered. MMODL / IJN: [id number] /
[2020-08-23] MEDS: HYDROmorphone 2 MG TAB PO PRN ×7 (00:49→23:48)
[2020-08-23] MEDS: metroNIDAZOLE-NS PMX 500 MG in SALINE 1 100ML.BAG IVPB SCH ×3 (01:13→16:40)
[2020-08-23] MEDS: ONDANSETRON 4 MG/2 ML VIAL IVP PRN ×2 (01:13→20:51)
[2020-08-23] MEDS: LORazepam 2 MG/ML INJ IV PRN ×3 (01:54→20:52)
[2020-08-23] MEDS: IPRATROPIUM-ALBUTEROL 3 ML NEB INHALATION SCH ×4 (08:20→21:55)
[2020-08-23] MEDS: FAMOTIDINE 20 MG TAB PO SCH ×2 (08:22→20:51)
[2020-08-23] MEDS: DOCUSATE 100 MG CAP PO SCH ×2 (08:22→20:51)
--- NOTE | 2020-08-23 09:06 | P.PN ---
Subjective Progress Note Date: 08/23/20 Principal diagnosis: This is a 45-year-old female seen in consultation because of acute kidney injury, secondary to both ureteral obstruction status post bilateral stenting since approximately June 2020 as well as outlet obstruction needing straight catheterization. She has a mass in her pelvis with carcinoma of the cervix and surgery is planning a diverting ostomy. She is in pain both in the abdominal area especially lower abdomen as well as bilateral flank. No fever chills nausea vomiting. She has good urine output, her 24-hour intake was 1380 output 3300. Creatinine stable at 1.3 Vital signs are stable blood pressure in the 120-140 range afebrile heart rate in the 90s to 100's Objective - Vital Signs Vital signs: Vital Signs Temp 99.7 F H 08/23/20 07:30 Pulse 96 08/23/20 07:30 Resp 20 08/23/20 07:30 BP 123/80 08/23/20 07:30 Pulse Ox 97 08/23/20 03:22 Intake & Output 08/22/20 08/23/20 08/23/20 18:59 06:59 18:59 Intake Total 1620 Output Total 1600 700 Balance -1600 920 Intake: Intake, IV Titration 540 Amount Cefepime 2 gm In Sodium 200 Chloride 0.9% 100 ml @ 200 mls/hr IVPB Q12H [facility] Rx#:[id number] IV Fluid Continuation 1, 240 000 ml @ 0 mls/hr IV .STK -[facility] Rx#:[id number] metroNIDAZOLE-NS PMX 500 100 mg In Saline 1 100ml.bag @ 100 mls/hr IVPB Q8HR [facility] Rx#:[id number] Oral 1080 Output: Urine 1600 700 Straight 1600 Other: Voiding Method Toilet Toilet Bedside Commode Bedside Commode Self-Catheterization Diaper Self-Catheterization # Bowel Movements 2 On examination she is in pain. HEENT exam no JVP neck is supple no facial asymmetry Lungs are clear to auscultation good air entry bilaterally Heart sounds unremarkable no murmur rub gallop Abdomen soft tender all over. Bowel sounds are present Extremity exam was trace edema Neurologically awake alert oriented - Labs CBC & Chem 7: 08/22/20 06:04 08/22/20 06:04 Assessment and Plan Assessment: Impression 1. Bilateral hydronephrosis with both ureteral obstruction with stents bilaterally since June 2020 as well as outlet obstruction needing straight catheterization with acute kidney injury. Creatinine improved from a peak of 1.84-1.36. 2. Anemia hemoglobin is 8.8 from chronic illness 3. Ovarian cancer with obstruction of both ureters as well as outlet obstruction with a mass in the pelvis, surgery is considering a diverting ostomy on Monday the after tomorrow 4. Computed tomography scan also shows lung infiltrate and possible metastatic disease. 5. Anemia hemoglobin is 8.8 Recommendation 1. Will start lactated Ringer's at 75 an hour for maintenance fluid intake is low 2. No changes in medication will continue follow. 3. Scheduled for possible surgery tomorrow for diverting ostomy
[2020-08-23] MEDS: LACTATED RINGERS 1,000 ML IV SCH ×2 (09:23→20:52)
[2020-08-23] MEDS: CEFEPIME 2 GM in SODIUM CHLORIDE 0.9% 100 ML IVPB SCH ×2 (09:27→23:00)
--- NOTE | 2020-08-23 09:56 | P.PN ---
Progress Note - Text Progress Note Date: 08/23/20 The patient is scheduled to undergo a diverting colostomy tomorrow. She reports back pain. She much prefers intermittent catheterization to an indwelling catheter, and is learning to self catheterize. Arrangements will be made for her to undergo bilateral ureteral stent change in the near future.
[2020-08-23 10:00] LABS: African American GFR (CKD) 57.8 (60.0-200.0); Albumin 3.3 g/dL (3.80-4.90); Albumin/Globulin Ratio 0.83 (1.60-3.17); Anion Gap 8.8 mmol/L (4.00-12.00); BUN/Creat Ratio 9.23 Ratio (12.00-20.00); Calcium 8.8 mg/dL (8.7-10.3); Carbon Dioxide 27.2 mmol/L (21.6-31.8); Non-African American GFR(CKD) 49.9 (60.0-200.0); Potassium 3.6 mmol/L (3.5-5.5); Total Bilirubin 0.6 mg/dL (0.3-1.2); Total Protein 7.3 g/dL (6.2-8.2)
[2020-08-23 10:41] LABS: Basophils # (A) 0.08 X 10*3/uL (0.00-0.10); Basophils % (A) 0.5 %; Eosinophils % (A) 1.2 %; HCT 29.7 % (37.2-46.3); HGB 8.7 g/dL (12.0-15.0); Lymphocytes # (A) 1.71 X 10*3/uL (0.90-5.00); MCH 24.1 pg (27.0-32.0); MCHC 29.3 g/dL (32.0-37.0); MCV 82.3 fL (80.0-97.0); Mean Platelet Volume 10.8 fL (9.5-12.2); Monocytes # (A) 1.24 X 10*3/uL (0.20-1.00); Monocytes % (A) 7.3 %; Neutrophils # (A) 13.54 X 10*3/uL (1.80-7.70); Neutrophils % (A) 79.4 %; Platelet Count 284 X 10*3/uL (140-440); RBC 3.61 X 10*6/uL (4.10-5.20); RDW 16.5 % (11.5-14.5); WBC 17.04 X 10*3/uL (4.50-10.00)
[2020-08-23] MEDS: ACETAMINOPHEN TAB 325 MG TAB PO PRN (11:24)
[2020-08-23] MEDS: CYCLOBENZAPRINE 5 MG TAB PO PRN ×2 (11:26→20:51)
--- NOTE | 2020-08-23 13:53 | XR ---
EXAMINATION TYPE: XR chest 2V DATE OF EXAM: 08/23/2020 COMPARISON: Chest x-ray 6 days ago HISTORY: Fever and shortness of breath TECHNIQUE: Frontal and lateral views of the chest are obtained. FINDINGS: There is chronic parenchymal changes bilaterally without suspicious new focal air space op acity, pleural effusion, or pneumothorax seen. Persistent perhaps slightly more prominent right media l basilar opacity. Trace fluid along the right major fissure on lateral view redemonstrated The cardi ac silhouette size remains within normal limits. The osseous structures are intact. IMPRESSION: Possible patchy right medial basal acute infiltrate and/or atelectasis.
--- NOTE | 2020-08-23 15:08 | P.PN ---
Subjective Progress Note Date: 08/23/20 Sepsis/UTI Locally advanced cervical cancer Bilateral hydronephrosis secondary to urinary obstruction secondary to locally advanced cervical cancer/hemorrhagic cystitis Lamar-rectal density/Rectal wall thickening/proctitis 45-year-old female that presents to emergency with abdominal pain. She was recently diagnosed with cervical cancer. She notes that she self catheterizes for urinary retention. She presents emergency with abdominal pain nausea vomiting. She was in bed in pain and was unable to give accurate answers to examination questions. Patient had bilateral ureteral stents placed on 2020. She denied any chest pain shortness of breath headache fatigue hematochezia melena. White blood cells 15.1, urinalysis: Bloody, red blood cells greater than 182, white blood cells greater than 182. Cefepime and vancomycin ordered. KUB: Nonacute abdomen. The right ureteral stent appears more inferior than last exam. CT of the abdomen and pelvis: There is some minimal reticular nodular infiltrate at the lung bases. Extensive inflammatory changes in the pelvis with perirectal density measuring up to almost 3 cm in thickness. This is worse than last exam. Consider both inflammatory disease and malignancy. There is bilateral moderate hydronephrosis which appears to same or slightly worse than last exam. Stent malfunction is possible. There is increased reticular nodular interstitial infiltrate the lung bases compared to old exam. 08/16/2020 Patient is seen and evaluated at room at bedside; complained of mijw-kr-meiwwrtt distress secondary to uncontrolled pain; pain medications have been adjusted by oncology; patient continues to complain of abdominal pain but significantly improved from yesterday; no complaining of nausea vomiting; patient has a Carbone catheter in Vital signs are reviewed temperature of 98.1 with T-max of 102.4, pulse 118, respiration 18 and blood pressure of 104/64 with SpO2 of 93% on 3 L Laboratory review reveals a WBC of 7.2, hemoglobin of 7.5 and platelet count of 186; sodium of 139, potassium 4.5 and B UN/creatinine of 22/1.7; blood culture preliminary report reveals gram-positive bacillary; urine culture is negative so far Patient has been evaluated by oncology and is recommended to proceed with colonoscopy; continue with broad-spectrum IV antibiotic coverage with cefepime, Flagyl and vancomycin; patient will likely need to be treated with chemotherapy and radiation therapy for cervical cancer; radiation oncology to see patient and make recommendations Renal function is improving with creatinine down to 1.7 from 1.9 yesterday; we will continue with IV fluid hydration and monitor strict SHIRA's, daily weights, renal function and electrolytes; we will consult nephrology for management of renal function since patient need improved renal function prior to starting chemotherapy 08/17/2020 Patient is complaining of also complaining of hematuria patient's hemoglobin did drop to 6.8 we'll transfuse 1 unit of PRBC transfusion patient leukocytosis improved patient's creatinine is improving and presently 1.2. I spent significant amount of time counseling the patient and also explaining her pain patient will be started on long-acting opiate that is fentanyl patch and will continue with [place] as needed as well as morphine as needed but patient doesn't want morphine for pain. sodium to prophylaxis will be discontinued. After the chest x-ray unfortunately I am unable to view the images but was read as previously scheduled disease cannot be ruled out patient is wheezing on exam although patient is apparently ALLERGIC to steroids because of which are just started on inhalational treatments titrating well at 98% on 4 L of oxygen. Patient is not tachycardic anymore. 08/18/2020 Patient is seen in follow-up continues to have multiple complaints of pain and is extremely tearful of her current situation. Patient has had Carbone catheter removed and states she voided and will continue straight catheter if unable to empty the bladder. Urology has evaluated the patient. Multiple medical consultations including surgery, oncology, nephrology, radiation oncology, and infectious disease following. is continued on IV antibiotics in the form of a for pain and Flagyl and will continue at this time. Repeat urine cultures and blood cultures have remained negative. Patient's hemoglobin is 9.2 today status post 1 unit of PRBCs yesterday, white blood count is 10.4, sodium is 137 with a potassium of 4.5. Current creatinine slightly worsened at 1.49 and nephrology is following. Continue with IV fluids at this time. And will repeat labs. Patient continues to have constipation and will continue with lactulose a nd Colace. Patient is scheduled tentatively to have an EGD and colonoscopy on and will likely start the bowel prep tomorrow. Patient continues to have severe pain and has multiple narcotic medications on board and will discontinue 2 mg of Dilaudid every 3 hours at this time. Patient does have MS Contin and fentanyl on board as well and oncology is following. 08/19/2020 Patient is seen in follow-up continues to be in pain stating "everywhere". Patient continues to have rectal tenderness and fecal incontinence and is currently wearing a brief. plans are for EGD colonoscopy with surgery tomorrow and bowel prep will start today. Patient is having loose gelatinous beard-colored loose stool and will obtain C. diff specimen. Patient's white count is slightly elevated at 11.99, hemoglobin is 8.6 with no active bleeding noted, sodium 137, potassium 4.1, creatinine 1.3. Patient is maintained on IV hydration and will continue. Nephrology following. Patient underwent abdominal series x-ray yesterday showing a kinking of the right ureteral stent with nonobstructive bowel gas pattern in no acute cardiopulmonary abnormalities. Patient also had a lumbar x-ray as she had recently fallen prior to admission showing mild spondylosis without acute osseous abnormality with no fractures or subluxations noted. Patient continues to refuse Carbone catheter stating it was causing immense pain and not tolerating straight catheterization per nursing staff. Urology is following. 08/20/2020 Patient is seen this morning continues to be tearful and out of sorts and having difficulty with urination. Patient is supposed to be using straight catheter and self catheterization although states she was never educated on this and is having difficulties. Urology has educated the patient and nursing staff will continue to attempt to educate. Patient was started on the bowel prep yesterday and apparently throughout the night did not continue and states she was not told to do so in the EGD/colonoscopy is being rescheduled for tomorrow morning. Patient will continue on clear liquids and continue with the bowel prep and be nothing by mouth at midnight. Multiple medical consultations following. Patient is maintained on IV antibiotics and will continue. Patient is afebrile although white blood count is on an upward trend today at 17.2 and hemoglobin is stable at 9.3 with no active bleeding noted. Creatinine slightly elevated at 1.37 and will repeat labs in continue to monitor. Patient continues on 4 L of oxygen with a 99% oxygen saturation and does have breathing treatments ordered but is refusing at this time. Patient does use inhalers in the outpatient setting as needed. 08/21/2020 Patient is seen this morning status post EGD colonoscopy and biopsies were obtained from the EGD along with colonoscopy and a large almost completely obstructing colon mass was noted and plans are for surgical intervention on Monday of a diverting colostomy. Multiple medical consultations following. Creatinine slightly improved at 1.33 today and will discontinue IV fluids, potassium is 3.8, sodium is 142. White blood count trending down at 14.1 and hemoglobin is 8.7 and will continue to monitor with repeat labs in the morning. No active bleeding is noted. Patient continues to require straight catheterization for urinary retention as she is refusing indwelling Carbone catheter and needs continuous education on learning how to self catheter and nursing staff continues to work with her and educate her on this process. Patient Is extremely anxious and tearful and psychiatry was consulted. Patient continues on cefepime and Flagyl IV with infectious disease following. 08/22/2020 Patient seen on follow-up, she is resting comfortably, , creatinine stable 1.3 fluids are hep-locked at this time. White count continues to come to 13.4 today. No fever, hemodynamically stable saturating above 90% on 2 L nasal cannula. Receiving antimicrobial therapy with cefepime and Flagyl. 08/23/2020 Patient seen sitting up in wheelchair, in no acute distress. Running low-grade fever this morning 100.1. Is continued on antimicrobial therapy cefepime and Flagyl. Blood pressure stable, she is on 2 L nasal cannula saturating above 90%. Using Dilaudid as needed for pain. She is planned for possible diverting colostomy placement Constitutional: Denied any fatigue denied any fever. Reports extreme anxiety Cardio vascular: denied any chest pain, palpitations Gastrointestinal denied any nausea vomiting, reports continued loose stools and fecal incontinence Pulmonary: Reports shortness of breath Neurologic denied any new focal deficits All inpatient medications were reviewed and appropriate changes in these medications as dictated in the interval history and assessment and plan. Objective - Vital Signs Vital signs: Vital Signs Temp 98.9 F 08/23/20 13:40 Pulse 116 H 08/23/20 13:40 Resp 18 08/23/20 13:40 BP 142/83 08/23/20 13:40 Pulse Ox 91 L 08/23/20 13:40 Intake & Output 08/22/20 08/23/20 08/23/20 18:59 06:59 18:59 Intake Total 1620 Output Total 1600 700 500 Balance -1600 920 -500 Intake: Intake, IV Titration 540 Amount Cefepime 2 gm In Sodium 200 Chloride 0.9% 100 ml @ 200 mls/hr IVPB Q12H [facility] Rx#:[id number] IV Fluid Continuation 1, 240 000 ml @ 0 mls/hr IV .STK -MED ONE Rx#:[id number] metroNIDAZOLE-NS PMX 500 100 mg In Saline 1 100ml.bag @ 100 mls/hr IVPB Q8HR [facility] Rx#:[id number] Oral 1080 Output: Urine 1600 700 500 Straight 1600 Other: Voiding Method Toilet Toilet Bedside Commode Bedside Commode Bedside Commode Diaper Self-Catheterization Diaper Self-Catheterization Self-Catheterization # Voids 1 # Bowel Movements 2 - Exam GENERAL: The patient is alert and oriented x3, not in any acute distress. Tearful and anxious. Well developed, well nourished. HEENT: Pupils are round and equally reacting to light. EOMI. No scleral icterus. No conjunctival pallor. Normocephalic, atraumatic. No pharyngeal erythema. No thyromegaly. CARDIOVASCULAR: S1 and S2 present. No murmurs, rubs, or gallops. PULMONARY: Diminished breath sounds with some bilateral scattered rhonchi ABDOMEN: Soft, nontender, nondistended, normoactive bowel sounds. No palpable organomegaly. MUSCULOSKELETAL: No joint swelling or deformity. EXTREMITIES: No cyanosis, clubbing, or pedal edema. NEUROLOGICAL: Gross neurological examination did not reveal any focal deficits. SKIN: No rashes. - Labs - Labs CBC & Chem 7: 08/23/20 06:07 08/23/20 06:07 Labs: Abnormal Lab Results - Last 24 Hours (Table) 08/23/20 08/23/20 Range/Units 06:07 06:07 WBC 17.04 H (4.50-10.00) X 10*3/uL RBC 3.61 L (4.10-5.20) X 10*6/uL Hgb 8.7 L (12.0-15.0) g/dL Hct 29.7 L (37.2-46.3) % MCH 24.1 L (27.0-32.0) pg MCHC 29.3 L (32.0-37.0) g/dL RDW 16.5 H (11.5-14.5) % Immature Gran # 0.27 H (0.00-0.04) X 10*3/uL Neutrophils # 13.54 H (1.80-7.70) X 10*3/uL Monocytes # 1.24 H (0.20-1.00) X 10*3/uL Est GFR (CKD-EPI)AfAm 57.8 L (60.0-200.0) Est GFR (CKD-EPI)NonAf 49.9 L (60.0-200.0) BUN/Creatinine Ratio 9.23 L (12.00-20.00) Ratio Glucose 120 H (70-110) mg/dL AST 36 H (13-35) U/L Alkaline Phosphatase 419 H (41-126) U/L Albumin 3.30 L (3.80-4.90) g/dL Globulin 4.0 H (1.6-3.3) g/dL Albumin/Globulin Ratio 0.83 L (1.60-3.17) g/dL Assessment and Plan Assessment: Assessment and Plan Assessment: -Abdominal pain with lamar-rectal density/thickness, patient is being treated for colitis. CT abdomen reveals inflammatory changes and rectal area; possibly secondary to inflammation versus related to cervical cancer; surgery also following and patient underwent EGD colonoscopy with mild gastritis and large rectal mass almost obstructing noted with multiple biopsies obtained. -Large rectal mass as noted on colonoscopy; surgery following a planning diverting colostomy on Monday and multiple biopsies obtained of the mass -Urinary obstruction/hydronephrosis; possible stent malfunctioning; urology on board and recommending a double-J catheter in the near future in the outpatient setting and recommending to continue with straight catheterization and educating the patient on straight cathing as patient will likely need to do this at home. -Hemorrhagic Cystitis; patient was evaluated by urology and is recommending double-J catheters due to cervical cancer in the outpatient no growth to urine culture -Cervical cancer oncology following and will need close outpatient follow-up. Patient states her gynecological oncologist is out of [facility] -Acute renal injury/ dehydration, improving, nephrology following: -Acute blood loss and anemia from possible hematuria, no bleeding noted. hemoglobin is 8.7 -Shortness of breath: Probably secondary to COPD acute exacerbation. Currently using 2 L of oxygen with oxygen saturations of 97% and nursing staff is weaning as tolerated. Patient continues to refuse ordered breathing treatments stating she needs to see her applications specialist prior to using this and continues to have shortness of breath -Pain management: Oncology managing pain medications. -DVT prophylaxis -GI prophylaxis -Full code Plan: Continue current medications and current IV antibiotic therapy with cefepime and Flagyl, low-grade fever 100.1 this morning, no growth to repeat blood culture from 08/15. Wean FiO2 as tolerated and discussed with nursing staff. Multiple medical consultations following. Patient underwent EGD showing mild gastritis with biopsies obtained and also colonoscopy revealing a large rectal mass almost obstructing with multiple biopsies obtained and plans are for surgery to perform diverting colostomy on Monday. Repeat labs in continue to monitor closely.
--- NOTE | 2020-08-23 15:20 | P.PN ---
Subjective Progress Note Date: 08/23/20 CHIEF COMPLAINT: Large bowel obstruction HISTORY OF PRESENT ILLNESS: The patient is a 45-year-old female with metastatic cervical cancer including a rectal cancer. She has obstructing rectal lesion. She is tolerating liquid diet. She is comfortable ROS: No reports of nausea and vomiting. No fevers or chills. No new chest pain. No productive sputum PHYSICAL EXAM: VITAL SIGNS: Reviewed CONSTITUTIONAL: Well developed and in no acute distress. EYES: Conjuctivae without sclera icterus. Extraocular movements grossly intact. HEAD, EARS, NOSE, THROAT: Moist buccal mucosa. Head is atraumatic, normocephalic. Hears conversational speech. No nasal drainage. NECK: Supple. No thyroidomegaly. RESPIRATORY: Non-labored respirations and equal bilateral excursions. CARDIOVASCULAR: Palpable 2+ radial pulses. ABDOMEN: No peritonitis. MUSCULOSKELETAL: No gross deformity of the lower extremities noted. No clubbing. No cyanosis. SKIN: Good skin turgor. Well perfused. NEUROLOGIC: Cranial nerves II through XII grossly intact. No focal or lateralizing signs. PSYCH: Appropriate affect. Alert and oriented to person, place and time. CLINICAL LABS: Reviewed. WBC elevated over 17,000 with leukocytosis. Anemia with hemoglobin 8.7 ASSESSMENT: 1. Obstructing rectal cancer. 2. Metastatic cervical cancer. 3. Leukocytosis 4. Anemia PLAN: 1. Recommend diverting ileostomy for obstructing rectal cancer. Patient's elevated risk due to metastatic cervical cancer. Objective - Vital Signs Vital signs: Vital Signs Temp 99.7 F H 08/23/20 07:30 Pulse 96 08/23/20 07:30 Resp 20 08/23/20 07:30 BP 123/80 08/23/20 07:30 Pulse Ox 97 08/23/20 03:22 Intake & Output 08/22/20 08/23/20 08/23/20 18:59 06:59 18:59 Intake Total 1620 Output Total 1600 700 500 Balance -1600 920 -500 Intake: Intake, IV Titration 540 Amount Cefepime 2 gm In Sodium 200 Chloride 0.9% 100 ml @ 200 mls/hr IVPB Q12H [facility] Rx#:[id number] IV Fluid Continuation 1, 240 000 ml @ 0 mls/hr IV .STK -MED ONE Rx#:[id number] metroNIDAZOLE-NS PMX 500 100 mg In Saline 1 100ml.bag @ 100 mls/hr IVPB Q8HR [facility] Rx#:[id number] Oral 1080 Output: Urine 1600 700 500 Straight 1600 Other: Voiding Method Toilet Toilet Bedside Commode Bedside Commode Bedside Commode Diaper Self-Catheterization Diaper Self-Catheterization Self-Catheterization # Voids 1 # Bowel Movements 2 - Labs CBC & Chem 7: 08/23/20 06:07 08/23/20 06:07 Labs: Abnormal Lab Results - Last 24 Hours (Table) 08/23/20 08/23/20 Range/Units 06:07 06:07 WBC 17.04 H (4.50-10.00) X 10*3/uL RBC 3.61 L (4.10-5.20) X 10*6/uL Hgb 8.7 L (12.0-15.0) g/dL Hct 29.7 L (37.2-46.3) % MCH 24.1 L (27.0-32.0) pg MCHC 29.3 L (32.0-37.0) g/dL RDW 16.5 H (11.5-14.5) % Immature Gran # 0.27 H (0.00-0.04) X 10*3/uL Neutrophils # 13.54 H (1.80-7.70) X 10*3/uL Monocytes # 1.24 H (0.20-1.00) X 10*3/uL Est GFR (CKD-EPI)AfAm 57.8 L (60.0-200.0) Est GFR (CKD-EPI)NonAf 49.9 L (60.0-200.0) BUN/Creatinine Ratio 9.23 L (12.00-20.00) Ratio Glucose 120 H (70-110) mg/dL AST 36 H (13-35) U/L Alkaline Phosphatase 419 H (41-126) U/L Albumin 3.30 L (3.80-4.90) g/dL Globulin 4.0 H (1.6-3.3) g/dL Albumin/Globulin Ratio 0.83 L (1.60-3.17) g/dL Assessment and Plan (1) Rectal adenocarcinoma Current Visit: Yes Status: Acute Code(s): C20 - MALIGNANT NEOPLASM OF RECTUM SNOMED Code(s): 330680307 (2) Metastasis from cervical cancer Current Visit: Yes Status: Acute Code(s): C79.9 - SECONDARY MALIGNANT NEOPLASM OF UNSPECIFIED SITE; C53.9 - MALIGNANT NEOPLASM OF CERVIX UTERI, UNSPECIFIED SNOMED Code(s): 796039787
[2020-08-23 17:19] LABS: Appearance,Urine Cloudy (Clear); Bilirubin,Urine Negative (Negative); Blood,Urine Moderate (Negative); Color,Urine Yellow; Glucose,Urine (UA) Negative (Negative); Ketones,Urine Negative (Negative); Leukocyte Esterase,Urine Large (Negative); Mucus,Urine Rare /hpf; Nitrite,Urine Negative (Negative); PH, Urine 7.5 (5.0-8.0); Protein,Urine 1+ (Negative); RBC,Urine 33 /hpf (0-5); Specific Gravity,Urine 1.009 (1.001-1.035); Urobilinogen,Urine <2.0 mg/dL (<2.0); WBC,Urine >182 /hpf (0-5)
--- NOTE | 2020-08-23 17:52 | P.PN ---
Subjective Progress Note Date: 08/23/20 Principal diagnosis: Cervical Cancer MIld increase in temperature this am, intermittent SOB, saturations have been stable however labile (likely contributing to her constant complaints pain and increased anxiety) however with surgery planned in am and increased lethargy (likely medication) will re-baron culture. Mom at bedside, she seem s a bit better today. Although complains of shortnesss of breath. Less lethargic and seems more focused during conversation today Objective - Vital Signs Vital signs: Vital Signs Temp 99.7 F H 08/23/20 07:30 Pulse 96 08/23/20 07:30 Resp 20 08/23/20 07:30 BP 123/80 08/23/20 07:30 Pulse Ox 97 08/23/20 03:22 Intake & Output 08/22/20 08/23/20 08/23/20 18:59 06:59 18:59 Intake Total 1620 Output Total 1600 700 500 Balance -1600 920 -500 Intake: Intake, IV Titration 540 Amount Cefepime 2 gm In Sodium 200 Chloride 0.9% 100 ml @ 200 mls/hr IVPB Q12H [facility] Rx#:[id number] IV Fluid Continuation 1, 240 000 ml @ 0 mls/hr IV .STK -MED ONE Rx#:[id number] metroNIDAZOLE-NS PMX 500 100 mg In Saline 1 100ml.bag @ 100 mls/hr IVPB Q8HR [facility] Rx#:[id number] Oral 1080 Output: Urine 1600 700 500 Straight 1600 Other: Voiding Method Toilet Toilet Bedside Commode Bedside Commode Bedside Commode Diaper Self-Catheterization Diaper Self-Catheterization Self-Catheterization # Voids 1 # Bowel Movements 2 - Exam - Constitutional General appearance: no acute distress - EENT Eyes: edentulous, PERRLA ENT: hard of hearing - Neck Neck: no lymphadenopathy - Respiratory Respiratory: bilateral: CTA - Cardiovascular Rhythm: regular - Gastrointestinal General gastrointestinal: no distended, soft, no tenderness - Integumentary Integumentary: pale, no rash - Neurologic Neurologic: CNII-XII intact - Musculoskeletal Musculoskeletal: strength equal bilaterally - Psychiatric Psychiatric: A&O x's 3, inappropriate affect, lethargic, extremly anxious - Labs CBC & Chem 7: 08/23/20 06:07 08/23/20 06:07 Labs: Abnormal Lab Results - Last 24 Hours (Table) 05/23/21 05/23/21 Range/Units 06:07 06:07 WBC 17.04 H (4.50-10.00) X 10*3/uL RBC 3.61 L (4.10-5.20) X 10*6/uL Hgb 8.7 L (12.0-15.0) g/dL Hct 29.7 L (37.2-46.3) % MCH 24.1 L (27.0-32.0) pg MCHC 29.3 L (32.0-37.0) g/dL RDW 16.5 H (11.5-14.5) % Immature Gran # 0.27 H (0.00-0.04) X 10*3/uL Neutrophils # 13.54 H (1.80-7.70) X 10*3/uL Monocytes # 1.24 H (0.20-1.00) X 10*3/uL Est GFR (CKD-EPI)AfAm 57.8 L (60.0-200.0) Est GFR (CKD-EPI)NonAf 49.9 L (60.0-200.0) BUN/Creatinine Ratio 9.23 L (12.00-20.00) Ratio Glucose 120 H (70-110) mg/dL AST 36 H (13-35) U/L Alkaline Phosphatase 419 H (41-126) U/L Albumin 3.30 L (3.80-4.90) g/dL Globulin 4.0 H (1.6-3.3) g/dL Albumin/Globulin Ratio 0.83 L (1.60-3.17) g/dL Assessment and Plan Plan: Initial presentation with abdominal pain. Diagnosed with cervical cancer in June. She self catheterizes for urinary retention. Admits to Nausea and vomiting as well, which is improved since admission - Patient had bilateral ureteral stents placed on 06/25/2020. IV Antibiotics Cervical Cancer: Near Obstructing Rectal Mass The right ureteral stent appears more inferior than last exam. CT of the abdomen and pelvis: There is some minimal reticular nodular infiltrate at the lung bases. Extensive inflammatory changes in the pelvis with perirectal density measuring up to almost 3 cm in thickness. This is worse than last exam. Consider both inflammatory disease and malignancy. There is bilateral moderate hydronephrosis which appears to same or slightly worse than last exam. Stent malfunction is possible. There is increased reticular nodular interstitial infiltrate the lung bases compared to old exam. 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 - She has not started treatment Plan: - Discussed with General Surgery related to findings during endoscopy, near obstructing mass. Agree with diverting ostomy - Will ask Dr. Alfredo to evaluate for need of radiation. - Await path from todays samples, likely metastatic - MRI Brain to evaluate for brain mets. She is refusing at this time The concern would be that she has had delay from time of diagnosis till now, she stated this has to do with caring for her son as well. Although with the need of surgical intervention with diverting ostomy, systemic therapy will be help for yesenia nicoel. Will discuss plan of action further with Dr. Alfredo (Radiation oncology). Mediport planned at same time at ostomy. Increased Temp - 100.1, requiring intermittent supplemental oxygen, re-baron culture and will obtain repeat chest xray. Although overall she is looking better.
[2020-08-24] MEDS: metroNIDAZOLE-NS PMX 500 MG in SALINE 1 100ML.BAG IVPB SCH ×4 (00:05→23:50)
[2020-08-24] MEDS: LORazepam 2 MG/ML INJ IV PRN (03:04)
[2020-08-24] MEDS: HYDROmorphone 2 MG TAB PO PRN ×3 (03:04→09:43)
--- NOTE | 2020-08-24 05:59 | PN ---
PROGRESS NOTE DATE OF SERVICE: 08/23/2020 REASON FOR FOLLOWUP: Complicated UTI and bronchitis. INTERVAL HISTORY: The patient is afebrile. The patient is breathing comfortably. Denies having chest pain. Occasional cough. No worsening abdominal pain. No vomiting or diarrhea. PHYSICAL EXAMINATION: Blood pressure 125/82 with a pulse of 120, temperature 98.2. She is 93% on 4 L nasal cannula. General description: The patient is a middle aged female up in the chair in no distress. Respiratory system: Unlabored breathing, decreased intensity of breath sounds. No wheeze. Heart S1, S2. Regular rate and rhythm. ABDOMEN: Soft. Mild tenderness. LABS: Hemoglobin 8.7, white count 17.4, BUN of 12, creatinine 1.3. DIAGNOSTIC IMPRESSION AND PLAN: 1. Patient with positive blood culture with diphtheroids. Could be contaminate. Repeat blood culture negative. 2. Complicated urinary tract infection and proctitis. 3. The patient is currently covered with cefepime, Flagyl to continue because of PENICILLIN ALLERGY. 4. Awaiting surgical intervention and continue supportive care. MMODL / IJN: [id number] /
[2020-08-24 06:05] LABS: Basophils # (A) 0.1 k/uL (0-0.2); Basophils % (A) 0 %; Eosinophils # (A) 0.1 k/uL (0-0.7); Eosinophils % (A) 1 %; HCT 27.5 % (34.0-46.0); HGB 8.8 gm/dL (11.4-16.0); Hypochromasia Moderate; Lymphocytes # (A) 1.4 k/uL (1.0-4.8); Lymphocytes % (A) 9 %; MCHC 32.1 g/dL (31.0-37.0); MCV 77.8 fL (80.0-100.0); Mean Platelet Volume 7.8; Microcytosis Slight; Monocytes # (A) 0.6 k/uL (0-1.0); Monocytes % (A) 4 %; Neutrophils # (A) 12.5 k/uL (1.3-7.7); Neutrophils % (A) 84 %; Platelet Count 212 k/uL (150-450); RBC 3.53 m/uL (3.80-5.40); WBC 14.8 k/uL (3.8-10.6)
[2020-08-24 06:18] LABS: African American GFR (CKD) 48 (>60 ml/min/1.73 sqM); Anion Gap 10 mmol/L; Blood Urea Nitrogen 15 mg/dL (7-17); Calcium 8.8 mg/dL (8.4-10.2); Carbon Dioxide 25 mmol/L (22-30); Chloride 103 mmol/L (98-107); Glucose 83 mg/dL (74-99); Non-African American GFR(CKD) 41 (>60 ml/min/1.73 sqM); Potassium 3.7 mmol/L (3.5-5.1); Sodium 138 mmol/L (137-145)
[2020-08-24] MEDS: ONDANSETRON 4 MG/2 ML VIAL IVP PRN (06:21)
[2020-08-24] MEDS: IPRATROPIUM-ALBUTEROL 3 ML NEB INHALATION SCH ×4 (07:36→19:17)
[2020-08-24] MEDS: FAMOTIDINE 20 MG TAB PO SCH ×2 (08:28→20:19)
[2020-08-24] MEDS: DOCUSATE 100 MG CAP PO SCH ×2 (08:28→20:19)
[2020-08-24] MEDS ORDERED: IV FLUID CONTINUATION 1,000 ML IV ONE ×2 (10:10→11:02)
[2020-08-24] MEDS ORDERED: HEPARIN SODIUM,PORCINE 5,000 UNIT/ML 1 ML VIAL SQ ONE (10:36)
[2020-08-24] MEDS ORDERED: PROPOFOL 10 MG/ML 20 ML VIAL IV ONE (11:43)
[2020-08-24] MEDS ORDERED: LIDOCAINE 1% INJ 10MG/ML (20 ML MDV) ONE (11:43)
[2020-08-24] MEDS ORDERED: DENOSUMAB 60 MG/ML 1 ML SYRINGE SQ ONE (11:43)
[2020-08-24] MEDS ORDERED: ROCURONIUM 10 MG/ML (5 ML VIAL) IV ONE (11:43)
[2020-08-24] MEDS ORDERED: fentaNYL (PF) 50 MCG/ML 2 ML AMP ONE (11:43)
[2020-08-24] MEDS ORDERED: SUCCINYLCHOLINE CHLORIDE 100 MG/5 ML SYR IV ONE (11:43)
[2020-08-24] MEDS ORDERED: LACTATED RINGERS 1,000 ML IV ONE (12:14)
--- NOTE | 2020-08-24 12:59 | FL ---
EXAMINATION TYPE: FL guided central line placement DATE OF EXAM: 08/24/2020 CLINICAL HISTORY: Port-A-Cath insertion TECHNIQUE: Fluoroscopy. COMPARISON: Chest x-ray from yesterday. FINDINGS: Fluoroscopic guidance was provided during Port-A-Cath insertion procedure performed by jenna walters. A total of 4 seconds of fluoroscopic time was utilized during the procedure and 1 spot intraop erative fluoroscopic image is acquired. Image shows endotracheal tube terminating just above the vel na new from chest x-ray one day earlier. There is partial visualization of right-sided Mediport lucrecia ter terminating near brachiocephalic confluence. IMPRESSION: As Above.
[2020-08-24] MEDS ORDERED: HYDROmorphone 1 MG/ML 1 ML SYRINGE IVP ONE ×2 (13:05→13:10)
[2020-08-24] MEDS ORDERED: LACTATED RINGERS 1,000 ML IV SCH ×3 (13:19)
[2020-08-24] MEDS ORDERED: SCOPOLAMINE 1.5MG/72HR PATCH TRANSDERM ONE (13:19)
[2020-08-24 13:58] LABS: ABG HCO3 27 mmol/L (21-25); ABG Oxygen Saturation 99.6 % (94-97); ABG PCO2 49 mmHg (35-45); ABG PH 7.35 (7.35-7.45); ABG PO2 >400 mmHg (83-108); ABG TCO2 28 mmol/L (19-24); Allen Test Performed? Yes
--- NOTE | 2020-08-24 13:58 | XR ---
EXAMINATION TYPE: XR chest 1V portable DATE OF EXAM: 08/24/2020 CLINICAL HISTORY: Difficulty breathing had to be intubated. TECHNIQUE: Single AP portable supine view of the chest is obtained. COMPARISON: Chest x-ray from one day earlier FINDINGS: New Endotracheal tube terminates at the inferior margin of clavicles. Right subclavian Mediport catheter terminates in SVC. There is chronic parenchymal changes bilateral ly with diminished inspiration and bibasilar opacities. Stable tiny right pleural effusion. The cardi ac silhouette size is more prominent and measures upper limits of normal. The osseous structures ar e intact. IMPRESSION: New Endotracheal tube satisfactory in position. No pneumothorax after right-sided Medipo rt catheter insertion. Diminished inspiration with bibasilar atelectasis and/or developing infiltrate noted.
[2020-08-24] MEDS ORDERED: MIDAZOLAM 2 MG/2 ML VIAL IVP ONE (14:04)
[2020-08-24 14:05] LABS: Glucose,Whole Blood 106 mg/dL (75-99)
[2020-08-24] MEDS ORDERED: fentaNYL (PF) 50 MCG/ML 2 ML AMP IVP ONE (14:05)
[2020-08-24] MEDS ORDERED: METOPROLOL TARTRATE 5 MG/5 ML VIAL IVP ONE (14:20)
[2020-08-24] MEDS: LACTATED RINGERS 1,000 ML IV SCH ×2 (14:22→15:50)
--- NOTE | 2020-08-24 14:42 | P.PN ---
Subjective Progress Note Date: 08/24/20 Sepsis/UTI Locally advanced cervical cancer Bilateral hydronephrosis secondary to urinary obstruction secondary to locally advanced cervical cancer/hemorrhagic cystitis Arin-rectal density/Rectal wall thickening/proctitis 45-year-old female that presents to emergency with abdominal pain. She was recently diagnosed with cervical cancer. She notes that she self catheterizes for urinary retention. She presents emergency with abdominal pain nausea vomiting. She was in bed in pain and was unable to give accurate answers to examination questions. Patient had bilateral ureteral stents placed on 06/02. She denied any chest pain shortness of breath headache fatigue hematochezia melena. White blood cells 15.1, urinalysis: Bloody, red blood cells greater than 182, white blood cells greater than 182. Cefepime and vancomycin ordered. KUB: Nonacute abdomen. The right ureteral stent appears more inferior than last exam. CT of the abdomen and pelvis: There is some minimal reticular nodular infiltrate at the lung bases. Extensive inflammatory changes in the pelvis with perirectal density measuring up to almost 3 cm in thickness. This is worse than last exam. Consider both inflammatory disease and malignancy. There is bilateral moderate hydronephrosis which appears to same or slightly worse than last exam. Stent malfunction is possible. There is increased reticular nodular interstitial infiltrate the lung bases compared to old exam. 08/16/2020 Patient is seen and evaluated at room at bedside; complained of [id number] distress secondary to uncontrolled pain; pain medications have been adjusted by oncology; patient continues to complain of abdominal pain but significantly improved from yesterday; no complaining of nausea vomiting; patient has a Carbone catheter in Vital signs are reviewed temperature of 98.1 with T-max of 102.4, pulse 118, respiration 18 and blood pressure of 104/64 with SpO2 of 93% on 3 L Laboratory review reveals a WBC of 7.2, hemoglobin of 7.5 and platelet count of 186; sodium of 139, potassium 4.5 and B UN/creatinine of 22/1.7; blood culture preliminary report reveals gram-positive bacillary; urine culture is negative so far Patient has been evaluated by oncology and is recommended to proceed with colonoscopy; continue with broad-spectrum IV antibiotic coverage with cefepime, Flagyl and vancomycin; patient will likely need to be treated with chemotherapy and radiation therapy for cervical cancer; radiation oncology to see patient and make recommendations Renal function is improving with creatinine down to 1.7 from 1.9 yesterday; we will continue with IV fluid hydration and monitor strict SHIRA's, daily weights, renal function and electrolytes; we will consult nephrology for management of renal function since patient need improved renal function prior to starting chemotherapy 08/17/2020 Patient is complaining of also complaining of hematuria patient's hemoglobin did drop to 6.8 we'll transfuse 1 unit of PRBC transfusion patient leukocytosis improved patient's creatinine is improving and presently 1.2. I spent significant amount of time counseling the patient and also explaining her pain patient will be started on long-acting opiate that is fentanyl patch and will continue with [place] as needed as well as morphine as needed but patient doesn't want morphine for pain. sodium to prophylaxis will be discontinued. Aft er the chest x-ray unfortunately I am unable to view the images but was read as previously scheduled disease cannot be ruled out patient is wheezing on exam although patient is apparently ALLERGIC to steroids because of which are just started on inhalational treatments titrating well at 98% on 4 L of oxygen. Patient is not tachycardic anymore. 08/18/2020 Patient is seen in follow-up continues to have multiple complaints of pain and is extremely tearful of her current situation. Patient has had Carbone catheter removed and states she voided and will continue straight catheter if unable to empty the bladder. Urology has evaluated the patient. Multiple medical consultations including surgery, oncology, nephrology, radiation oncology, and infectious disease following. is continued on IV antibiotics in the form of a for pain and Flagyl and will continue at this time. Repeat urine cultures and blood cultures have remained negative. Patient's hemoglobin is 9.2 today status post 1 unit of PRBCs yesterday, white blood count is 10.4, sodium is 137 with a potassium of 4.5. Current creatinine slightly worsened at 1.49 and nephrology is following. Continue with IV fluids at this time. And will repeat labs. Patient continues to have constipation and will continue with lactulose and Colace. Patient is scheduled tentatively to have an EGD and colonoscopy on and will likely start the bowel prep tomorrow. Patient continues to have severe pain and has multiple narcotic medications on board and will discontinue 2 mg of Dilaudid every 3 hours at this time. Patient does have MS Contin and fentanyl on board as well and oncology is following. 08/19/2020 Patient is seen in follow-up continues to be in pain stating "everywhere". Patient continues to have rectal tenderness and fecal incontinence and is currently wearing a brief. plans are for EGD colonoscopy with surgery tomorrow and bowel prep will start today. Patient is having loose gelatinous beard-colored loose stool and will obtain C. diff specimen. Patient's white count is slightly elevated at 11.99, hemoglobin is 8.6 with no active bleeding noted, sodium 137, potassium 4.1, creatinine 1.3. Patient is maintained on IV hydration and will continue. Nephrology following. Patient underwent abdominal series x-ray yesterday showing a kinking of the right ureteral stent with nonobstructive bowel gas pattern in no acute cardiopulmonary abnormalities. Patient also had a lumbar x-ray as she had recently fallen prior to admission showing mild spondylosis without acute osseous abnormality with no fractures or subluxations noted. Patient continues to refuse Carbone catheter stating it was causing immen se pain and not tolerating straight catheterization per nursing staff. Urology is following. 08/20/2020 Patient is seen this morning continues to be tearful and out of sorts and having difficulty with urination. Patient is supposed to be using straight catheter and self catheterization although states she was never educated on this and is having difficulties. Urology has educated the patient and nursing staff will continue to attempt to educate. Patient was started on the bowel prep yesterday and apparently throughout the night did not continue and states she was not told to do so in the EGD/colonoscopy is being rescheduled for tomorrow morning. Patient will continue on clear liquids and continue with the bowel prep and be nothing by mouth at midnight. Multiple medical consultations following. Patient is maintained on IV antibiotics and will continue. Patient is afebrile although white blood count is on an upward trend today at 17.2 and hemoglobin is stable at 9.3 with no active bleeding noted. Creatinine slightly elevated at 1.37 and will repeat labs in continue to monitor. Patient continues on 4 L of oxygen with a 99% oxygen saturation and does have breathing treatments ordered but is refusing at this time. Patient does use inhalers in the outpatient setting as needed. 08/21/2020 Patient is seen this morning status post EGD colonoscopy and biopsies were obtained from the EGD along with colonoscopy and a large almost completely obstructing colon mass was noted and plans are for surgical intervention on Monday of a diverting colostomy. Multiple medical consultations following. Creatinine slightly improved at 1.33 today and will discontinue IV fluids, potassium is 3.8, sodium is 142. White blood count trending down at 14.1 and hemoglobin is 8.7 and will continue to monitor with repeat labs in the morning. No active bleeding is noted. Patient continues to require straight catheterization for urinary retention as she is refusing indwelling Carbone lucrecia ter and needs continuous education on learning how to self catheter and nursing staff continues to work with her and educate her on this process. Patient Is extremely anxious and tearful and psychiatry was consulted. Patient continues on cefepime and Flagyl IV with infectious disease following. 08/22/2020 Patient seen on follow-up, she is resting comfortably, , creatinine stable 1.3 fluids are hep-locked at this time. White count continues to come to 13.4 today. No fever, hemodynamically stable saturating above 90% on 2 L nasal cannula. Receiving antimicrobial therapy with cefepime and Flagyl. 08/23/2020 Patient seen sitting up in wheelchair, in no acute distress. Running low-grade fever this morning 100.1. Is continued on antimicrobial therapy cefepime and Flagyl. Blood pressure stable, she is on 2 L nasal cannula saturating above 90%. Using Dilaudid as needed for pain. She is planned for possible diverting colostomy placement 08/24/2020 Patient has been nothing by mouth since midnight and scheduled for diverting ostomy placement with Dr. Rivera today and will await report. Multiple medical consultations including oncology and infectious disease following. Patient white count today slightly improved at 14.8 and hemoglobin is stable at 8.8 with no active bleeding noted. Sodium noted to be 138 with a potassium of 3.7 and current creatinine is 1.52. Lactic acid has improved at 1.4. Constitutional: Denied any fatigue denied any fever. Reports extreme anxiety a nd tearful about surgery Cardio vascular: denied any chest pain, palpitations Gastrointestinal denied any nausea vomiting, reports fecal incontinence Pulmonary: Reports shortness of breath Neurologic denied any new focal deficits All inpatient medications were reviewed and appropriate changes in these medications as dictated in the interval history and assessment and plan. Objective - Vital Signs Vital signs: Vital Signs Temp 100 F H 08/24/20 07:17 Pulse 112 H 08/24/20 07:17 Resp 20 08/24/20 07:17 BP 151/83 08/24/20 07:17 Pulse Ox 90 L 08/24/20 07:17 Intake & Output 08/23/20 08/24/20 08/24/20 18:59 06:59 18:59 Intake Total 1000 2050 Output Total 1600 2600 Balance -600 -550 Intake: IV 100 200 Cefepime 2 gm In Sodium 100 200 Chloride 0.9% 100 ml @ 200 mls/hr IVPB Q12H ISABEL Rx#:[id number] Intake, IV Titration 100 850 Amount Lactated Ringers 1,000 ml 750 @ 75 mls/hr IV .[id number] [facility] Rx#:[id number] metroNIDAZOLE-NS PMX 500 100 100 mg In Saline 1 100ml.bag @ 100 mls/hr IVPB Q8HR ISABEL Rx#:[id number] Oral 800 1000 Output: Urine 1600 2600 Straight 800 900 Other: Voiding Method Bedside Commode Bedside Commode Diaper Diaper Self-Catheterization Self-Catheterization # Voids 1 # Bowel Movements 2 - Exam GENERAL: The patient is alert and oriented x3, not in any acute distress. Tearful and anxious. Well developed, well nourished. HEENT: Pupils are round and equally reacting to light. EOMI. No scleral icterus. No conjunctival pallor. Normocephalic, atraumatic. No pharyngeal erythema. No thyromegaly. CARDIOVASCULAR: S1 and S2 present. No murmurs, rubs, or gallops. PULMONARY: Diminished breath sounds with some bilateral scattered rhonchi ABDOMEN: Soft, nontender, nondistended, normoactive bowel sounds. No palpable organomegaly. MUSCULOSKELETAL: No joint swelling or deformity. EXTREMITIES: No cyanosis, clubbing, or pedal edema. NEUROLOGICAL: Gross neurological examination did not reveal any focal deficits. SKIN: No rashes. - Labs CBC & Chem 7: 08/24/20 05:15 08/24/20 05:15 Labs: Abnormal Lab Results - Last 24 Hours (Table) 08/23/20 08/23/20 08/23/20 Range/Units 06:07 06:07 17:07 WBC 17.04 H (4.50-10.00) X 10*3/uL RBC 3.61 L (4.10-5.20) X 10*6/uL Hgb 8.7 L (12.0-15.0) g/dL Hct 29.7 L (37.2-46.3) % MCV (80.0-100.0) fL MCH 24.1 L (27.0-32.0) pg MCHC 29.3 L (32.0-37.0) g/dL RDW 16.5 H (11.5-14.5) % Immature Gran # 0.27 H (0.00-0.04) X 10*3/uL Neutrophils # 13.54 H (1.80-7.70) X 10*3/uL Monocytes # 1.24 H (0.20-1.00) X 10*3/uL Creatinine (0.52-1.04) mg/dL Est GFR (CKD-EPI)AfAm 57.8 L (60.0-200.0) Est GFR (CKD-EPI)NonAf 49.9 L (60.0-200.0) BUN/Creatinine Ratio 9.23 L (12.00-20.00) Ratio Glucose 120 H (70-110) mg/dL Plasma Lactic Acid Cesar (0.7-2.0) mmol/L AST 36 H (13-35) U/L Alkaline Phosphatase 419 H (41-126) U/L Albumin 3.30 L (3.80-4.90) g/dL Globulin 4.0 H (1.6-3.3) g/dL Albumin/Globulin Ratio 0.83 L (1.60-3.17) g/dL Urine Appearance Cloudy H (Clear) Urine Protein 1+ H (Negative) Urine Blood Moderate H (Negative) Ur Leukocyte Esterase Large H (Negative) Urine RBC 33 H (0-5) /hpf Urine WBC >182 H (0-5) /hpf Urine Mucus Rare H (None) /hpf 08/23/20 08/23/20 08/24/20 Range/Units 20:43 23:28 05:15 WBC 14.8 H (4.50-10.00) X 10*3/uL RBC 3.53 L (4.10-5.20) X 10*6/uL Hgb 8.8 L (12.0-15.0) g/dL Hct 27.5 L (37.2-46.3) % MCV 77.8 L (80.0-100.0) fL MCH (27.0-32.0) pg MCHC (32.0-37.0) g/dL RDW 16.0 H (11.5-14.5) % Immature Gran # (0.00-0.04) X 10*3/uL Neutrophils # 12.5 H (1.80-7.70) X 10*3/uL Monocytes # (0.20-1.00) X 10*3/uL Creatinine (0.52-1.04) mg/dL Est GFR (CKD-EPI)AfAm (60.0-200.0) Est GFR (CKD-EPI)NonAf (60.0-200.0) BUN/Creatinine Ratio (12.00-20.00) Ratio Glucose (70-110) mg/dL Plasma Lactic Acid Cesar 2.2 H* 2.4 H* (0.7-2.0) mmol/L AST (13-35) U/L Alkaline Phosphatase (41-126) U/L Albumin (3.80-4.90) g/dL Globulin (1.6-3.3) g/dL Albumin/Globulin Ratio (1.60-3.17) g/dL Urine Appearance (Clear) Urine Protein (Negative) Urine Blood (Negative) Ur Leukocyte Esterase (Negative) Urine RBC (0-5) /hpf Urine WBC (0-5) /hpf Urine Mucus (None) /hpf 08/24/20 Range/Units 05:15 WBC (4.50-10.00) X 10*3/uL RBC (4.10-5.20) X 10*6/uL Hgb (12.0-15.0) g/dL Hct (37.2-46.3) % MCV (80.0-100.0) fL MCH (27.0-32.0) pg MCHC (32.0-37.0) g/dL RDW (11.5-14.5) % Immature Gran # (0.00-0.04) X 10*3/uL Neutrophils # (1.80-7.70) X 10*3/uL Monocytes # (0.20-1.00) X 10*3/uL Creatinine 1.52 H (0.52-1.04) mg/dL Est GFR (CKD-EPI)AfAm (60.0-200.0) Est GFR (CKD-EPI)NonAf (60.0-200.0) BUN/Creatinine Ratio (12.00-20.00) Ratio Glucose (70-110) mg/dL Plasma Lactic Acid Cesar (0.7-2.0) mmol/L AST (13-35) U/L Alkaline Phosphatase (41-126) U/L Albumin (3.80-4.90) g/dL Globulin (1.6-3.3) g/dL Albumin/Globulin Ratio (1.60-3.17) g/dL Urine Appearance (Clear) Urine Protein (Negative) Urine Blood (Negative) Ur Leukocyte Esterase (Negative) Urine RBC (0-5) /hpf Urine WBC (0-5) /hpf Urine Mucus (None) /hpf Microbiology - Last 24 Hours (Table) 08/23/20 17:07 Urine Culture - Preliminary Urine,Voided Assessment and Plan Assessment: -Abdominal pain with arin-rectal density/thickness, patient is being treated for colitis. CT abdomen reveals inflammatory changes and rectal area; possibly secondary to inflammation versus related to cervical cancer; surgery also following and patient underwent EGD colonoscopy with mild gastritis and large rectal mass almost obstructing noted with multiple biopsies obtained. Patient is scheduled for diverting ostomy this morning with surgery. Will await surgical report -Large rectal mass as noted on colonoscopy; surgery following a planning diverting colostomy today, biopsy still pending -Urinary obstruction/hydronephrosis; possible stent malfunctioning; urology on board and recommending a double-J catheter in the near future in the outpatient setting and recommending to continue with straight catheterization and educating the patient on straight cathing as patient will likely need to do this at home. Continued resistance from the patient stating she has not being educated properly. Discussed with nursing staff about continuing to attempt educating -Hemorrhagic Cystitis; patient was evaluated by urology and is recommending double-J catheters due to cervical cancer in the outpatient setting; urine culture remains negative -Cervical cancer oncology following and will need close outpatient follow-up. Patient states her gynecological oncologist is out of [facility] -Acute renal injury/ dehydration, worsening and will continue with gentle IV hydration with repeat labs in the morning -Acute blood loss and anemia from possible hematuria, no bleeding noted. hemoglobin is 8.8 -Shortness of breath: Probably secondary to COPD acute exacerbation. Currently using 2 L of oxygen with oxygen saturations of 97% and nursing staff is weaning as tolerated. Patient continues to refuse ordered breathing treatments stating she needs to see her associate professor of surgery prior to using this and continues to have shortness of breath -Pain management: Patient was started on longer acting opiate fentanyl patch along with the [place] and oral morphine for breakthrough pain will try to wean off IV Dilaudid. Oncology managing pain medications. -DVT prophylaxis -GI prophylaxis -Full code Plan: Continue current medications and current IV antibiotic therapy. Patient is scheduled for diverting colostomy with surgery today and will await report. We'll continue with IV fluids his creatinine slightly elevated and will repeat a.m. labs. Multiple medical consultations following. Repeat labs in continue to monitor closely.
[2020-08-24] MEDS ORDERED: HYDROmorphone 0.5 MG/0.5 ML SYRINGE IVP ONE (14:51)
[2020-08-24] MEDS: HYDROmorphone 0.5 MG/0.5 ML SYRINGE IVP PRN ×8 (14:54→22:47)
--- NOTE | 2020-08-24 15:27 | P.CNPUL ---
History of Present Illness Consult date: 08/24/20 History of present illness: 45-year-old female patient who is post diverticular colostomy and insertion of a Mediport. I was asked to evaluate this patient in the recovery as the patient was kept intubated on a mechanical ventilator and anesthesia was quite hesitant to extubate this patient and the patient was kept intubated and the patient was asked to be transferred to the intensive care unit. Still awaiting a bed in the ICU. Currently she is intubated by #7 orotracheal tube. At a time of my arrival, she was assist-control mode at the rate of 14 with a tidal volume of 400 and FiO2 of 100% with a PEEP of 5. The blood gas showed a pH of 7.35 with a pCO2 of 49 and a pO2 of more than 400 and based on that the FiO2 was down to 50%. Her current pulse ox is 97%. She is on propofol which is running at 50 mcg/kg per minute. She is hemodynamically stable. She is a blood pressure 121/75. She is on IV fluids in the form of 0.9 at the rate of KVO and lactated Ringer at the rate of 100 mL an hour. She has adequate urine output. No orogastric tube in place at this point in time. Her abdomen is slightly distended. Colostomy is seen in the left upper quadrant and it's quite viable at this point in time. She has been receiving Dilaudid for pain control. Her postop chest x-ray showed adequate positioning of the ET tube. The patient has a Mediport in a good location. She also has developed some atelectatic changes/infiltrate in the right lung base which are obviously new finding compared to the earlier chest x-ray. White cell count from this morning's of 14.8 with a hemoglobin of 8.8. The creatinine is up to 1.52 and the patient's electrodes are all within normal limits. Most recent urine cultures been negative. She has multiple ALLERGIES. She is currently on IV cefepime and Flagyl as empiric antibiotic coverage. 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 The patient initially presented to us with abdominal pain. She does have chronic urinary retention and the patient undergoes self-catheterization. She has also bilateral ureteral stents that were placed on 06/25/2020. The patient has moderate hydronephrosis of the kidneys bilaterally. The patient also had bowel obstruction and a colonoscopy was done by general surgery that showed an obstructive mass at the level of the anal verge and for that reason the recommendation was to proceed with diverticulitis colostomy.. Note that the patient was found to have an obstructing rectal mass at the level of the anal verge. Review of Systems ROS unobtainable: due to endotracheal tube Past Medical History Past Medical History: Asthma, COPD, CVA/TIA, GERD/Reflux, Seizure Disorder, Skin Disorder Additional Past Medical History / Comment(s): TIA, brain bleed 2008. Hx seizure poss R/T Rx, 2012. 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 Fell 02/2020 w/ dislocation hip, bruised tailbone. Ezcema, psoriasis, rosacea. Recent constipation, c/o pain mid back/flank area. Varicose veins,kidney stents 06/29/20 History of Any Multi-Drug Resistant Organisms: MRSA Date of last positivie culture/infection: 2010 MDRO Source:: uterus Past Surgical History: Appendectomy, Section Additional Past Surgical History / Comment(s): 2 D&C, 2008 Past Anesthesia/Blood Transfusion Reactions: Previous Problems w/ Anesthesia, Motion Sickness Additional Past Anesthesia/Blood Transfusion Reaction / Comment(s): Reaction 2004 w/ D&C heart rate ecelerated, blood pressure bottomed out, uncontrolled; with C-S spinal block paralyzed lung, stopped breathing. Novocain caused leg tremors w/ dental work. Requesting Ativan in pre-op D/T anxiousness. Past Psychological History: ADD/ADHD, Anxiety, PTSD Additional Psychological History / Comment(s): states that PTSD was treated Smoking Status: Never smoker Past Alcohol Use History: None Reported Additional Past Alcohol Use History / Comment(s): smoked 2 cartons of cigarettes in 1 day 2000 Past Drug Use History: None Reported - Past Family History Father Family Medical History: Cancer, Deep Vein Thrombosis (DVT) Additional Family Medical History / Comment(s): thyroid goiter, poss cancer Medications and Allergies Home Medications Medication Instructions Recorded Confirmed Type Morphine Sulfate ER [Ms Contin] 15 mg PO Q12HR PRN 08/06/20 08/14/20 History Sennosides [Senna] 8.6 mg PO BID PRN 08/06/20 08/14/20 History RX: Lactulose 20 gm PO BID PRN #900 ml 08/09/20 08/14/20 Rx bisacodyL [Dulcolax] 10 mg RECTAL DAILY PRN #12 supp 08/09/20 08/14/20 Rx Sulfamethox-Tmp 800-160Mg [Bactrim 1 tab PO Q12HR #20 tab 08/13/20 08/14/20 Rx DS 800-160 mg] HYDROcodone/APAP 10-325MG [[place] 1 tab PO Q4HR PRN 08/14/20 08/14/20 History 10-325] Lidocaine 5% Oint [Xylocaine 5% 1 applic TOPICAL DAILY PRN 08/14/20 08/14/20 History Oint] Allergies Allergy/AdvReac Type Severity Reaction Status Date / Time shellfish derived [Shellfish] Allergy Mild Swelling, Verified 08/14/20 19:18 nausea ciprofloxacin [From Cipro] Allergy Anaphylaxis Verified 08/14/20 19:18 coconut Allergy Anaphylaxis Verified 08/14/20 19:18 Fish Containing Products Allergy Anaphylaxis Verified 08/14/20 19:18 [Fish] fluticasone Allergy Anaphylaxis Verified 08/14/20 19:18 [From Flovent Diskus] honey Allergy Swelling Verified 08/14/20 19:18 Iodinated Contrast Media Allergy Swelling Verified 08/14/20 19:18 [Iodinated Contrast Media - IV Dye] iodine Allergy Swelling Verified 08/14/20 19:18 lamotrigine [From Lamictal] Allergy Anaphylaxis, Verified 08/14/20 19:18 seizures, hives latex Allergy Rash/Hives, Verified 08/14/20 19:18 dyspnea medroxyprogesterone Allergy Unknown Verified 08/14/20 19:18 [From Depo-Provera] naproxen Allergy Rash/Hives Verified 08/14/20 19:18 nitrofurantoin Allergy Rash/Hives Verified 08/14/20 19:18 [From Macrobid] oxcarbazepine Allergy Unknown Verified 08/14/20 19:18 [From Trileptal] oxycodone [From Percocet] Allergy Anaphylaxis Verified 08/14/20 19:18 Penicillins Allergy Anaphylaxis Verified 08/14/20 19:18 Quinolones Allergy Dyspnea Verified 08/14/20 19:18 talc Allergy Dyspnea Verified 08/14/20 19:18 topiramate [From Topamax] Allergy Rash/Hives, Verified 08/14/20 19:18 seizures venom-honey bee Allergy Anaphylaxis Verified 08/14/20 19:18 [bee venom (honey bee)] venom-wasp [wasp venom] Allergy Anaphylaxis Verified 08/14/20 19:18 codeine AdvReac Vomiting Verified 08/14/20 19:18 diphenhydramine AdvReac Unknown Verified 08/14/20 19:18 [From Benadryl] divalproex sodium AdvReac Unknown Verified 08/14/20 19:18 [From Depakote] erythromycin base AdvReac Unknown Verified 08/14/20 19:18 paroxetine [From Paxil] AdvReac suicidal Verified 08/14/20 19:18 procaine [From Novocain] AdvReac Unknown Verified 08/14/20 19:18 Physical Exam Vitals: Vital Signs Temp Pulse Pulse Resp BP Pulse Ox 08/24/20 15:02 118 H 15 121/75 97 08/24/20 14:47 118 H 15 120/73 97 08/24/20 14:31 114 H 15 119/71 98 08/24/20 14:26 110 H 08/24/20 14:18 145 H 15 143/94 98 08/24/20 14:13 133 H 14 116/69 97 08/24/20 14:07 133 H 15 116/69 97 08/24/20 13:45 150 H 22 145/84 98 08/24/20 13:24 98.2 F 120 H 14 122/62 97 08/24/20 11:15 101 H 22 145/81 92 L 08/24/20 10:45 110 H 24 130/77 93 L 08/24/20 10:30 101 H 22 139/76 93 L 08/24/20 10:15 99.8 F H 109 H 22 146/82 93 L 08/24/20 08:00 109 H 22 08/24/20 07:17 100 F H 112 H 20 151/83 90 L 08/24/20 01:59 98.7 F 103 H 20 121/85 92 L 08/23/20 22:25 20 08/23/20 20:00 98.2 F 112 H 26 H 125/82 93 L Intake and Output 08/24/20 08/24/20 08/24/20 06:59 14:59 22:59 Intake Total 2050 1550 Output Total 2600 1235 Balance -550 315 Intake: IV 200 1550 Cefepime 2 gm In Sodium 200 Chloride 0.9% 100 ml @ 200 mls/hr IVPB Q12H IS[facility] Rx#:[id number] Intake, IV Titration 850 Amount Lactated Ringers 1,000 ml 750 @ 75 mls/hr IV .[id number] [facility] Rx#:[id number] metroNIDAZOLE-NS PMX 500 100 mg In Saline 1 100ml.bag @ 100 mls/hr IVPB Q8HR ISAB[facility] Rx#:[id number] Oral 1000 Output: Urine 2600 1200 Straight 900 Estimated Blood Loss 35 Other: Voiding Method Bedside Commode Diaper Self-Catheterization # Bowel Movements 2 Weight 90.718 kg 90.718 kg Is currently sedated, comfortable, intubated on a mechanical ventilator and the patient has a #7 orotracheal tube. Head exam was generally normal. There was no scleral icterus or corneal arcus. Mucous membranes were moist. Neck was supple and without jugular venous distension, thyromegaly, or carotid bruits. Carotids were easily palpable bilaterally. There was no adenopathy. Lungs sounds are diminished bilaterally otherwise the vessels are equal and symmetrical there is no wheezes overall currently crackles. Cardiac exam revealed the PMI to be normally situated and sized. The rhythm was regular and no extrasystoles were noted during several minutes of auscultation. The first and second heart sounds were normal and physiologic splitting of the second heart sound was noted. There were no murmurs, rubs, clicks, or gallops. Abdomen is soft and the patient has no bowel sounds. She has diabetic colostomy in the left upper quadrant. The colostomy site is viable anything. No direct tenderness. No rebound tenderness. No guarding. Examination of the extremities revealed easily palpable radial, femoral and pedal pulses. There was no cyanosis, clubbing or edema. Examination of the skin revealed no evidence of significant rashes, suspicious appearing nevi or other concerning lesions. Neurologically, the patient does not have any focal neurological deficit. Cranial nerves are essentially intact. Results - Laboratory Findings CBC and BMP: 08/24/20 05:15 08/24/20 05:15 ABG ABG pH 7.35 (7.35-7.45) 08/24/20 13:56 ABG pCO2 49 mmHg (35-45) H 08/24/20 13:56 ABG pO2 >400 mmHg (83-108) H 08/24/20 13:56 ABG O2 Saturation 99.6 % (94-97) H 08/24/20 13:56 PT/INR, D-dimer PT 10.7 sec (9.0-12.0) 08/15/20 01:12 INR 1.0 (<1.2) 08/15/20 01:12 Abnormal lab findings: Abnormal Labs 08/14/20 08/14/20 08/14/20 19:39 19:39 19:39 WBC 15.1 H RBC Hgb 9.5 L Hct 30.6 L MCV 77.8 L MCH 24.2 L MCHC RDW Absolute Nucleated RBC Immature Gran # Neutrophils # 13.7 H Lymphocytes # 0.7 L Monocytes # Eosinophils # NRBC/100 WBC Diff APTT ABG pCO2 ABG pO2 ABG HCO3 ABG Total CO2 ABG O2 Saturation Sodium 135 L Carbon Dioxide BUN 20 H Creatinine 1.84 H Est GFR (CKD-EPI)AfAm Est GFR (CKD-EPI)NonAf BUN/Creatinine Ratio Glucose 106 H POC Glucose (mg/dL) Plasma Lactic Acid Cesar Calcium AST 59 H ALT 38 H Alkaline Phosphatase 287 H C-Reactive Protein Albumin Globulin Albumin/Globulin Ratio Procalcitonin Urine Appearance Bloody H Urine Protein Urine Blood Ur Leukocyte Esterase Urine RBC >182 H Urine WBC >182 H Urine Mucus Crossmatch 08/15/20 08/15/20 08/15/20 01:12 06:40 06:40 WBC 12.34 H RBC 3.00 L Hgb 7.3 L Hct 24.8 L MCV MCH 24.3 L MCHC 29.4 L RDW 14.6 H Absolute Nucleated RBC Immature Gran # 0.06 H Neutrophils # 10.67 H Lymphocytes # 0.88 L Monocytes # Eosinophils # 0.03 L NRBC/100 WBC Diff APTT 17.7 L ABG pCO2 ABG pO2 ABG HCO3 ABG Total CO2 ABG O2 Saturation Sodium Carbon Dioxide 20.4 L BUN Creatinine 1.9 H Est GFR (CKD-EPI)AfAm 36.5 L Est GFR (CKD-EPI)NonAf 31.5 L BUN/Creatinine Ratio 11.05 L Glucose POC Glucose (mg/dL) Plasma Lactic Acid Cesar Calcium 8.1 L AST ALT Alkaline Phosphatase C-Reactive Protein Albumin Globulin Albumin/Globulin Ratio Procalcitonin Urine Appearance Urine Protein Urine Blood Ur Leukocyte Esterase Urine RBC Urine WBC Urine Mucus Crossmatch 08/15/20 08/15/20 08/16/20 06:40 06:40 05:53 WBC RBC 3.16 L Hgb 7.5 L Hct 26.2 L MCV MCH 23.7 L MCHC 28.6 L RDW 14.6 H Absolute Nucleated RBC Immature Gran # Neutrophils # Lymphocytes # Monocytes # Eosinophils # 0.02 L NRBC/100 WBC Diff APTT ABG pCO2 ABG pO2 ABG HCO3 ABG Total CO2 ABG O2 Saturation Sodium Carbon Dioxide BUN Creatinine Est GFR (CKD-EPI)AfAm Est GFR (CKD-EPI)NonAf BUN/Creatinine Ratio Glucose POC Glucose (mg/dL) Plasma Lactic Acid Cesar Calcium AST ALT Alkaline Phosphatase C-Reactive Protein 17.5 H Albumin Globulin Albumin/Globulin Ratio Procalcitonin 2.54 H Urine Appearance Urine Protein Urine Blood Ur Leukocyte Esterase Urine RBC Urine WBC Urine Mucus Crossmatch 08/16/20 08/17/20 08/17/20 05:53 06:36 06:36 WBC RBC 2.88 L Hgb 6.8 L* Hct 23.6 L MCV MCH 23.6 L MCHC 28.8 L RDW 14.6 H Absolute Nucleated RBC Immature Gran # Neutrophils # Lymphocytes # Monocytes # Eosinophils # NRBC/100 WBC Diff APTT ABG pCO2 ABG pO2 ABG HCO3 ABG Total CO2 ABG O2 Saturation Sodium Carbon Dioxide BUN Creatinine 1.7 H Est GFR (CKD-EPI)AfAm 41.8 L Est GFR (CKD-EPI)NonAf 36.0 L BUN/Creatinine Ratio Glucose POC Glucose (mg/dL) Plasma Lactic Acid Cesar Calcium 8.4 L AST ALT Alkaline Phosphatase C-Reactive Protein Albumin Globulin Albumin/Globulin Ratio Procalcitonin 1.16 H Urine Appearance Urine Protein Urine Blood Ur Leukocyte Esterase Urine RBC Urine WBC Urine Mucus Crossmatch 08/17/20 08/17/20 08/18/20 06:36 12:48 07:19 WBC RBC 3.73 L Hgb 9.2 L Hct 30.0 L MCV MCH 24.6 L MCHC 30.6 L RDW Absolute Nucleated RBC Immature Gran # Neutrophils # 8.5 H Lymphocytes # Monocytes # Eosinophils # NRBC/100 WBC Diff APTT ABG pCO2 ABG pO2 ABG HCO3 ABG Total CO2 ABG O2 Saturation Sodium Carbon Dioxide BUN Creatinine Est GFR (CKD-EPI)AfAm Est GFR (CKD-EPI)NonAf 54.9 L BUN/Creatinine Ratio Glucose POC Glucose (mg/dL) Plasma Lactic Acid Cesar Calcium 8.0 L AST ALT Alkaline Phosphatase C-Reactive Protein Albumin Globulin Albumin/Globulin Ratio Procalcitonin Urine Appearance Urine Protein Urine Blood Ur Leukocyte Esterase Urine RBC Urine WBC Urine Mucus Crossmatch See Detail 08/18/20 08/18/20 08/19/20 07:19 17:49 05:50 WBC 11.99 H RBC 3.50 L Hgb 8.6 L Hct 28.8 L MCV MCH 24.6 L MCHC 29.9 L RDW 15.3 H Absolute Nucleated RBC 0.02 H Immature Gran # 0.14 H Neutrophils # 9.66 H Lymphocytes # Monocytes # Eosinophils # NRBC/100 WBC Diff 0.2 H APTT ABG pCO2 ABG pO2 ABG HCO3 ABG Total CO2 ABG O2 Saturation Sodium Carbon Dioxide BUN Creatinine 1.49 H 1.32 H Est GFR (CKD-EPI)AfAm Est GFR (CKD-EPI)NonAf BUN/Creatinine Ratio Glucose 128 H POC Glucose (mg/dL) Plasma Lactic Acid Cesar Calcium AST ALT Alkaline Phosphatase C-Reactive Protein Albumin Globulin Albumin/Globulin Ratio Procalcitonin Urine Appearance Urine Protein Urine Blood Ur Leukocyte Esterase Urine RBC Urine WBC Urine Mucus Crossmatch 08/19/20 08/20/20 08/20/20 05:50 05:30 05:30 WBC 17.2 H RBC 3.68 L Hgb 9.3 L Hct 29.1 L MCV 79.0 L MCH MCHC RDW 15.6 H Absolute Nucleated RBC Immature Gran # Neutrophils # 14.4 H Lymphocytes # Monocytes # Eosinophils # NRBC/100 WBC Diff APTT ABG pCO2 ABG pO2 ABG HCO3 ABG Total CO2 ABG O2 Saturation Sodium Carbon Dioxide BUN Creatinine 1.37 H Est GFR (CKD-EPI)AfAm 57.8 L Est GFR (CKD-EPI)NonAf 49.9 L BUN/Creatinine Ratio 10.00 L Glucose 126 H POC Glucose (mg/dL) Plasma Lactic Acid Cesar Calcium AST 53 H 55 H ALT Alkaline Phosphatase 335 H 384 H C-Reactive Protein Albumin 3.30 L 3.4 L Globulin Albumin/Globulin Ratio 1.00 L Procalcitonin Urine Appearance Urine Protein Urine Blood Ur Leukocyte Esterase Urine RBC Urine WBC Urine Mucus Crossmatch 08/21/20 08/21/20 08/22/20 07:24 07:24 06:04 WBC 14.1 H 13.4 H RBC 3.39 L 3.44 L Hgb 8.7 L 8.8 L Hct 26.7 L 27.4 L MCV 78.7 L 79.7 L MCH MCHC RDW 15.9 H 16.0 H Absolute Nucleated RBC Immature Gran # Neutrophils # 11.7 H 11.2 H Lymphocytes # Monocytes # Eosinophils # NRBC/100 WBC Diff APTT ABG pCO2 ABG pO2 ABG HCO3 ABG Total CO2 ABG O2 Saturation Sodium Carbon Dioxide BUN Creatinine 1.33 H Est GFR (CKD-EPI)AfAm Est GFR (CKD-EPI)NonAf BUN/Creatinine Ratio Glucose 105 H POC Glucose (mg/dL) Plasma Lactic Acid Cesar Calcium AST ALT Alkaline Phosphatase C-Reactive Protein Albumin Globulin Albumin/Globulin Ratio Procalcitonin Urine Appearance Urine Protein Urine Blood Ur Leukocyte Esterase Urine RBC Urine WBC Urine Mucus Crossmatch 08/22/20 08/23/20 08/23/20 06:04 06:07 06:07 WBC 17.04 H RBC 3.61 L Hgb 8.7 L Hct 29.7 L MCV MCH 24.1 L MCHC 29.3 L RDW 16.5 H Absolute Nucleated RBC Immature Gran # 0.27 H Neutrophils # 13.54 H Lymphocytes # Monocytes # 1.24 H Eosinophils # NRBC/100 WBC Diff APTT ABG pCO2 ABG pO2 ABG HCO3 ABG Total CO2 ABG O2 Saturation Sodium Carbon Dioxide BUN Creatinine 1.36 H Est GFR (CKD-EPI)AfAm 57.8 L Est GFR (CKD-EPI)NonAf 49.9 L BUN/Creatinine Ratio 9.23 L Glucose 160 H 120 H POC Glucose (mg/dL) Plasma Lactic Acid Cesar Calcium AST 36 H ALT Alkaline Phosphatase 419 H C-Reactive Protein Albumin 3.30 L Globulin 4.0 H Albumin/Globulin Ratio 0.83 L Procalcitonin Urine Appearance Urine Protein Urine Blood Ur Leukocyte Esterase Urine RBC Urine WBC Urine Mucus Crossmatch 08/23/20 08/23/20 08/23/20 17:07 20:43 23:28 WBC RBC Hgb Hct MCV MCH MCHC RDW Absolute Nucleated RBC Immature Gran # Neutrophils # Lymphocytes # Monocytes # Eosinophils # NRBC/100 WBC Diff APTT ABG pCO2 ABG pO2 ABG HCO3 ABG Total CO2 ABG O2 Saturation Sodium Carbon Dioxide BUN Creatinine Est GFR (CKD-EPI)AfAm Est GFR (CKD-EPI)NonAf BUN/Creatinine Ratio Glucose POC Glucose (mg/dL) Plasma Lactic Acid Cesar 2.2 H* 2.4 H* Calcium AST ALT Alkaline Phosphatase C-Reactive Protein Albumin Globulin Albumin/Globulin Ratio Procalcitonin Urine Appearance Cloudy H Urine Protein 1+ H Urine Blood Moderate H Ur Leukocyte Esterase Large H Urine RBC 33 H Urine WBC >182 H Urine Mucus Rare H Crossmatch 08/24/20 08/24/20 08/24/20 05:15 05:15 13:56 WBC 14.8 H RBC 3.53 L Hgb 8.8 L Hct 27.5 L MCV 77.8 L MCH MCHC RDW 16.0 H Absolute Nucleated RBC Immature Gran # Neutrophils # 12.5 H Lymphocytes # Monocytes # Eosinophils # NRBC/100 WBC Diff APTT ABG pCO2 49 H ABG pO2 >400 H ABG HCO3 27 H ABG Total CO2 28 H ABG O2 Saturation 99.6 H Sodium Carbon Dioxide BUN Creatinine 1.52 H Est GFR (CKD-EPI)AfAm Est GFR (CKD-EPI)NonAf BUN/Creatinine Ratio Glucose POC Glucose (mg/dL) Plasma Lactic Acid Cesar Calcium AST ALT Alkaline Phosphatase C-Reactive Protein Albumin Globulin Albumin/Globulin Ratio Procalcitonin Urine Appearance Urine Protein Urine Blood Ur Leukocyte Esterase Urine RBC Urine WBC Urine Mucus Crossmatch 08/24/20 14:03 WBC RBC Hgb Hct MCV MCH MCHC RDW Absolute Nucleated RBC Immature Gran # Neutrophils # Lymphocytes # Monocytes # Eosinophils # NRBC/100 WBC Diff APTT ABG pCO2 ABG pO2 ABG HCO3 ABG Total CO2 ABG O2 Saturation Sodium Carbon Dioxide BUN Creatinine Est GFR (CKD-EPI)AfAm Est GFR (CKD-EPI)NonAf BUN/Creatinine Ratio Glucose POC Glucose (mg/dL) 106 H Plasma Lactic Acid Cesar Calcium AST ALT Alkaline Phosphatase C-Reactive Protein Albumin Globulin Albumin/Globulin Ratio Procalcitonin Urine Appearance Urine Protein Urine Blood Ur Leukocyte Esterase Urine RBC Urine WBC Urine Mucus Crossmatch - Diagnostic Findings Chest x-ray: image reviewed Assessment and Plan Plan: 1 Acute hypoxic respiratory failure following bowel surgery which involved diverting colostomy. Currently intubated on a mechanical ventilator. Chest x- ray was noted. Blood gases was noted. Oxygenation has improved and the patient has some limited atelectatic changes in the right lung base. 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 Biopsies have been obtained awaiting final pathology, consider metastatic cervical cancer. 4 obstructive uropathy with bilateral hydronephrosis post-insertion of double-J stent. 5 chronic kidney disease and the patient's creatinine is at 1.5 5 history of hemorrhagic cystitis 6 anemia of chronic disease, hemoglobin is stable currently at 8.8 7 UTI maintained on a combination of cefepime and Flagyl 8 sinus tachycardia 9 status post port insertion 10 history of TIA/CVA with questionable brain bleed in 2008 11 polycystic ovary disease 12 IBS 13 chronic back pain 14 history of hip dislocation 15 history of psoriasis and rosacea 16 history of varicose veins 17 history of seizure disorders Plan We'll cut down his sedation with plan for extubation today in the recovery or possibly in the ICU The patient should be able to extubated without any major difficulties Increase his IV fluids up to 1 50 mL an hour of lactated Ringer Keep the Carbone catheter in place and monitor the urine output Repeat CBC and monitor the patient's hemoglobin Continue cefepime and Flagyl as broad-spectrum antibiotic coverage Dilaudid for pain control Lovenox subcu for DVT prophylaxis 40 mg every 24 hours We'll take her to the ICU for the next 24 hours for further monitoring.
--- NOTE | 2020-08-24 16:16 | P.OP ---
Date of Procedure: 08/24/20 Preoperative Diagnosis: Metastatic cervical cancer Postoperative Diagnosis: Metastatic cervical cancer Rectal obstruction Procedure(s) Performed: Diverting colostomy Anesthesia: ENID Surgeon: Fab Rivera Estimated Blood Loss (ml): 25 Pathology: none sent Condition: stable Disposition: PACU
[2020-08-24 16:17] LABS: Glucose,Whole Blood 110 mg/dL (75-99)
[2020-08-24] MEDS: CEFEPIME 2 GM in SODIUM CHLORIDE 0.9% 100 ML IVPB SCH ×2 (16:37→22:46)
[2020-08-24] MEDS: ENOXAPARIN 40 MG/0.4 ML SYRINGE SQ SCH (16:43)
--- NOTE | 2020-08-24 16:58 | P.PN ---
Subjective Progress Note Date: 08/24/20 Principal diagnosis: Cervical Cancer Seen this am prior to surgery, NPO since after midnight planning for diverting ostomy today. Objective - Vital Signs Vital signs: Vital Signs Temp 98.2 F 08/24/20 13:24 Pulse 118 H 08/24/20 15:32 Resp 16 08/24/20 15:32 BP 126/73 08/24/20 15:32 Pulse Ox 99 08/24/20 15:32 Intake & Output 08/23/20 08/24/20 08/24/20 18:59 06:59 18:59 Intake Total 1000 2050 2450 Output Total 1600 2600 1735 Balance -600 -550 715 Weight 90.718 kg Intake: IV 762 631 8697 Cefepime 2 gm In Sodium 100 200 Chloride 0.9% 100 ml @ 200 mls/hr IVPB Q12H [facility] Rx#:[id number] Intake, IV Titration 100 850 Amount Lactated Ringers 1,000 ml 750 @ 75 mls/hr IV .[id number] [facility] Rx#:[id number] metroNIDAZOLE-NS PMX 500 100 100 mg In Saline 1 100ml.bag @ 100 mls/hr IVPB Q8HR [facility] Rx#:[id number] Oral 800 1000 Output: Urine 1600 2600 1700 Straight 800 900 Estimated Blood Loss 35 Other: Voiding Method Bedside Commode Bedside Commode Bedside Commode Diaper Diaper Diaper Self-Catheterization Self-Catheterization Self-Catheterization # Voids 1 # Bowel Movements 2 - Exam - Constitutional General appearance: no acute distress - EENT Eyes: edentulous, PERRLA ENT: hard of hearing - Neck Neck: no lymphadenopathy - Respiratory Respiratory: bilateral: CTA - Cardiovascular Rhythm: regular - Gastrointestinal General gastrointestinal: no distended, soft, no tenderness - Integumentary Integumentary: pale, no rash - Neurologic Neurologic: CNII-XII intact - Musculoskeletal Musculoskeletal: strength equal bilaterally - Psychiatric Psychiatric: A&O x's 3, inappropriate affect, lethargic, extremly anxious - Labs CBC & Chem 7: 08/24/20 05:15 08/24/20 05:15 Labs: Abnormal Lab Results - Last 24 Hours (Table) 08/23/20 08/23/20 08/23/20 Range/Units 17:07 20:43 23:28 WBC (3.8-10.6) k/uL RBC (3.80-5.40) m/uL Hgb (11.4-16.0) gm/dL Hct (34.0-46.0) % MCV (80.0-100.0) fL RDW (11.5-15.5) % Neutrophils # (1.3-7.7) k/uL ABG pCO2 (35-45) mmHg ABG pO2 (83-108) mmHg ABG HCO3 (21-25) mmol/L ABG Total CO2 (19-24) mmol/L ABG O2 Saturation (94-97) % Creatinine (0.52-1.04) mg/dL POC Glucose (mg/dL) (75-99) mg/dL Plasma Lactic Acid Cesar 2.2 H* 2.4 H* (0.7-2.0) mmol/L Urine Appearance Cloudy H (Clear) Urine Protein 1+ H (Negative) Urine Blood Moderate H (Negative) Ur Leukocyte Esterase Large H (Negative) Urine RBC 33 H (0-5) /hpf Urine WBC >182 H (0-5) /hpf Urine Mucus Rare H (None) /hpf 08/24/20 08/24/20 08/24/20 Range/Units 05:15 05:15 13:56 WBC 14.8 H (3.8-10.6) k/uL RBC 3.53 L (3.80-5.40) m/uL Hgb 8.8 L (11.4-16.0) gm/dL Hct 27.5 L (34.0-46.0) % MCV 77.8 L (80.0-100.0) fL RDW 16.0 H (11.5-15.5) % Neutrophils # 12.5 H (1.3-7.7) k/uL ABG pCO2 49 H (35-45) mmHg ABG pO2 >400 H (83-108) mmHg ABG HCO3 27 H (21-25) mmol/L ABG Total CO2 28 H (19-24) mmol/L ABG O2 Saturation 99.6 H (94-97) % Creatinine 1.52 H (0.52-1.04) mg/dL POC Glucose (mg/dL) (75-99) mg/dL Plasma Lactic Acid Cesar (0.7-2.0) mmol/L Urine Appearance (Clear) Urine Protein (Negative) Urine Blood (Negative) Ur Leukocyte Esterase (Negative) Urine RBC (0-5) /hpf Urine WBC (0-5) /hpf Urine Mucus (None) /hpf 08/24/20 08/24/20 Range/Units 14:03 16:15 WBC (3.8-10.6) k/uL RBC (3.80-5.40) m/uL Hgb (11.4-16.0) gm/dL Hct (34.0-46.0) % MCV (80.0-100.0) fL RDW (11.5-15.5) % Neutrophils # (1.3-7.7) k/uL ABG pCO2 (35-45) mmHg ABG pO2 (83-108) mmHg ABG HCO3 (21-25) mmol/L ABG Total CO2 (19-24) mmol/L ABG O2 Saturation (94-97) % Creatinine (0.52-1.04) mg/dL POC Glucose (mg/dL) 106 H 110 H (75-99) mg/dL Plasma Lactic Acid Cesar (0.7-2.0) mmol/L Urine Appearance (Clear) Urine Protein (Negative) Urine Blood (Negative) Ur Leukocyte Esterase (Negative) Urine RBC (0-5) /hpf Urine WBC (0-5) /hpf Urine Mucus (None) /hpf Microbiology - Last 24 Hours (Table) 08/23/20 13:00 Blood Culture - Preliminary Blood No Growth after 24 hours 08/23/20 13:02 Blood Culture - Preliminary Blood No Growth after 24 hours 08/23/20 17:07 Urine Culture - Preliminary Urine,Voided Assessment and Plan Plan: Initial presentation with abdominal pain. Diagnosed with cervical cancer in June. She self catheterizes for urinary retention. Admits to Nausea and vomiting as well, which is improved since admission - Patient had bilateral ureteral stents placed on 06/25/2020. IV Antibiotics Cervical Cancer: Near Obstructing Rectal Mass The right ureteral stent appears more inferior than last exam. CT of the abdomen and pelvis: There is some minimal reticular nodular infiltrate at the lung bases. Extensive inflammatory changes in the pelvis with perirectal density measuring up to almost 3 cm in thickness. This is worse than last exam. Consider both inflammatory disease and malignancy. There is bilateral moderate hydronephrosis which appears to same or slightly worse than last exam. Stent malfunction is possible. There is increased reticular nodular interstitial infiltrate the lung bases compared to old exam. 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 - She has not started treatment Plan: - plan concurrent radiation Dr. Alfredo to evaluate for need of radiation. - Await path from biopsies likely metastatic - MRI Brain to evaluate for brain mets. She is refusing at this time Plan for OR today with Dr. Rivera for diverting ostomy Addendum: Discussed with Dr. Rivera, patient tolerated surgery. She is recovering in ICU.
[2020-08-24 17:15] LABS: Basophils # (A) 0.1 k/uL (0-0.2); Basophils % (A) 0 %; Eosinophils # (A) 0.1 k/uL (0-0.7); Eosinophils % (A) 0 %; HCT 25.3 % (34.0-46.0); HGB 7.9 gm/dL (11.4-16.0); Hypochromasia Marked; Lymphocytes # (A) 1.1 k/uL (1.0-4.8); Lymphocytes % (A) 7 %; MCH 24.5 pg (25.0-35.0); MCHC 31.1 g/dL (31.0-37.0); Mean Platelet Volume 7.7; Monocytes # (A) 0.5 k/uL (0-1.0); Monocytes % (A) 3 %; Neutrophils # (A) 13.2 k/uL (1.3-7.7); Neutrophils % (A) 88 %; Platelet Count 172 k/uL (150-450); RDW 15.7 % (11.5-15.5); WBC 15.1 k/uL (3.8-10.6)
[2020-08-24 17:18] LABS: African American GFR (CKD) 58 (>60 ml/min/1.73 sqM); Anion Gap 8 mmol/L; Blood Urea Nitrogen 14 mg/dL (7-17); Calcium 8.6 mg/dL (8.4-10.2); Carbon Dioxide 23 mmol/L (22-30); Chloride 108 mmol/L (98-107); Glucose 96 mg/dL (74-99); Non-African American GFR(CKD) 50 (>60 ml/min/1.73 sqM); Sodium 139 mmol/L (137-145)
[2020-08-24] MEDS: HYDROmorphone 1 MG/ML 1 ML SYRINGE IVP PRN ×3 (17:23→23:48)
[2020-08-24 23:48] LABS: Glucose,Whole Blood 80 mg/dL (75-99)
[2020-08-25] MEDS: HYDROmorphone 0.5 MG/0.5 ML SYRINGE IVP PRN ×13 (00:53→23:50)
[2020-08-25] MEDS: HYDROmorphone 1 MG/ML 1 ML SYRINGE IVP PRN ×7 (03:45→22:51)
[2020-08-25] MEDS: LACTATED RINGERS 1,000 ML IV SCH ×3 (03:45→10:48)
[2020-08-25 03:57] LABS: Basophils % (A) 0 %; Eosinophils # (A) 0.1 k/uL (0-0.7); Eosinophils % (A) 1 %; HCT 25.6 % (34.0-46.0); HGB 8.2 gm/dL (11.4-16.0); Hypochromasia Marked; Lymphocytes % (A) 6 %; MCH 25.2 pg (25.0-35.0); MCV 78.7 fL (80.0-100.0); Mean Platelet Volume 7.9; Microcytosis Slight; Monocytes # (A) 0.6 k/uL (0-1.0); Monocytes % (A) 3 %; Neutrophils # (A) 16.4 k/uL (1.3-7.7); Neutrophils % (A) 90 %; Platelet Count 161 k/uL (150-450); RBC 3.26 m/uL (3.80-5.40); RDW 15.9 % (11.5-15.5); WBC 18.3 k/uL (3.8-10.6)
[2020-08-25 04:25] LABS: Calcium 8.7 mg/dL (8.4-10.2); Magnesium 1.8 mg/dL (1.6-2.3); Potassium 3.6 mmol/L (3.5-5.1)
[2020-08-25] MEDS ORDERED: Potassium Replacement Protocol 1 EACH MISC MISCELLANE PRN (04:47)
[2020-08-25] MEDS ORDERED: Magnesium Replacement Protocol 1 EACH MISC MISCELLANE PRN (04:47)
[2020-08-25] MEDS: MAGNESIUM SULFATE-D5W PMX 1 GM in DEXTROSE/WATER 1 100ML.BAG IVPB SCH ×2 (05:16→06:30)
[2020-08-25] MEDS: POTASSIUM CHLORIDE 10 MEQ in WATER FOR INJECTION 1 100ML.BAG IVPB SCH ×2 (05:16→06:32)
[2020-08-25] MEDS: metroNIDAZOLE-NS PMX 500 MG in SALINE 1 100ML.BAG IVPB SCH ×3 (07:56→23:56)
[2020-08-25] MEDS: ENOXAPARIN 40 MG/0.4 ML SYRINGE SQ SCH (08:01)
[2020-08-25] MEDS: DOCUSATE 100 MG CAP PO SCH (08:01)
[2020-08-25] MEDS: IPRATROPIUM-ALBUTEROL 3 ML NEB INHALATION SCH ×4 (08:30→19:33)
[2020-08-25] MEDS ORDERED: FAMOTIDINE 20 MG/2 ML VIAL IV SCH (09:00)
--- NOTE | 2020-08-25 09:32 | XR ---
EXAMINATION TYPE: XR chest 1V DATE OF EXAM: 08/25/2020 COMPARISON: Chest x-ray 08/24/2020 HISTORY: Postop TECHNIQUE: Single frontal view of the chest is obtained. FINDINGS: There is been interval removal of endotracheal tube. Patient's Port-A-Cath is stable. Patc hy density at the right lung base is improved, there is bandlike area of increased attenuation at the left lung base. No evident pneumothorax or pleural effusion. Cardiomediastinal silhouette is stable. IMPRESSION: Interval extubation, suspect basilar atelectasis, correlate to exclude pneumonia.
[2020-08-25] MEDS: FAMOTIDINE 20 MG/2 ML VIAL IV SCH ×2 (09:36→20:46)
--- NOTE | 2020-08-25 09:49 | P.PN ---
Subjective Progress Note Date: 08/25/20 45-year-old female patient who is post diverticular colostomy and insertion of a Mediport. I was asked to evaluate this patient in the recovery as the patient was kept intubated on a mechanical ventilator and anesthesia was quite hesitant to extubate this patient and the patient was kept intubated and the patient was asked to be transferred to the intensive care unit. Still awaiting a bed in the ICU. Currently she is intubated by #7 orotracheal tube. At a time of my arrival, she was assist-control mode at the rate of 14 with a tidal volume of 400 and FiO2 of 100% with a PEEP of 5. The blood gas showed a pH of 7.35 with a pCO2 of 49 and a pO2 of more than 400 and based on that the FiO2 was down to 50%. Her current pulse ox is 97%. She is on propofol which is running at 50 mcg/kg per minute. She is hemodynamically stable. She is a blood pressure 121/75. She is on IV fluids in the form of 0.9 at the rate of KVO and lactated Ringer at the rate of 100 mL an hour. She has adequate urine output. No orogastric tube in place at this point in time. Her abdomen is slightly distended. Colostomy is seen in the left upper quadrant and it's quite viable at this point in time. She has been receiving Dilaudid for pain control. Her postop chest x-ray showed adequate positioning of the ET tube. The patient has a Mediport in a good location. She also has developed some atelectatic porsche nges/infiltrate in the right lung base which are obviously new finding compared to the earlier chest x-ray. White cell count from this morning's of 14.8 with a hemoglobin of 8.8. The creatinine is up to 1.52 and the patient's electrodes are all within normal limits. Most recent urine cultures been negative. She has multiple ALLERGIES. She is currently on IV cefepime and Flagyl as empiric antibiotic coverage. 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 The patient initially presented to us with abdominal pain. She does have chronic urinary retention and the patient undergoes self-catheterization. She has also bilateral ureteral stents that were placed on 06/25/2020. The patient has moderate hydronephrosis of the kidneys bilaterally. The patient also had bowel obstruction and a colonoscopy was done by general surgery that showed an obstructive mass at the level of the anal verge and for that reason the recommendation was to proceed with diverticulitis colostomy.. Note that the patient was found to have an obstructing rectal mass at the level of the anal verge. 08/25/2020, the patient is in the intensive care unit. She is currently extubated on 4 L of oxygen by nasal cannula. I extubated yesterday in the recovery room. She did very well. She was given IV fluids. Her sinus tachycardia improved and currently her heart rate is somewhere between 100-110, sinus rhythm. She is still having diffuse abdominal discomfort and pain. She is on Dilaudid for pain control. She has some sluggish bowel sounds. The colostomy site is viable yet nonfunctional yet. There is no output is emanating in the colostomy bag. She is on lactated Ringer at the rate of 150 mL an hour. Her chest x-ray showing some limited left basilar atelectasis. White cell count of 18.3 with hemoglobin of 8.2. Creatinine stable at 1.3 and the rest of the electrodes are all within normal limits. The patient remains on IV cefepime as an empiric antibiotic coverage in combination with Flagyl. Blood cultures of been negative. Objective - Vital Signs Vital signs: Vital Signs Temp 99.9 F H 08/25/20 08:00 Pulse 105 H 08/25/20 08:00 Resp 22 08/25/20 08:00 BP 124/76 08/25/20 08:00 Pulse Ox 95 08/25/20 08:31 Intake & Output 08/24/20 08/25/20 08/25/20 18:59 06:59 18:59 Intake Total 2700 1850 400 Output Total 1855 1515 165 Balance 845 335 235 Weight 90.718 kg 95 kg Intake: IV 2700 1850 400 Cefepime 2 gm In Sodium 100 Chloride 0.9% 100 ml @ 200 mls/hr IVPB Q12H [facility] Rx#:[id number] Lactated Ringers 1,000 ml 150 1650 300 @ 150 mls/hr IV .[id number] [facility] Rx#:[id number] metroNIDAZOLE-NS PMX 500 100 100 100 mg In Saline 1 100ml.bag @ 100 mls/hr IVPB Q8HR [facility] Rx#:[id number] Output: Urine 1820 1515 165 Estimated Blood Loss 35 Other: Voiding Method Indwelling Catheter Indwelling Catheter - Exam Is currently sedated, comfortable, on 4 l 02 NC Head exam was generally normal. There was no scleral icterus or corneal arcus. Mucous membranes were moist. Neck was supple and without jugular venous distension, thyromegaly, or carotid bruits. Carotids were easily palpable bilaterally. There was no adenopathy. Lungs sounds are diminished bilaterally otherwise the vessels are equal and symmetrical there is no wheezes overall currently crackles. Cardiac exam revealed the PMI to be normally situated and sized. The rhythm was regular and no extrasystoles were noted during several minutes of auscultation. The first and second heart sounds were normal and physiologic splitting of the second heart sound was noted. There were no murmurs, rubs, clicks, or gallops. Abdomen is soft and the patient has minimal bowel sounds. She has diabetic colostomy in the left upper quadrant. The colostomy site is viable anything. No direct tenderness. No rebound tenderness. No guarding. Examination of the extremities revealed easily palpable radial, femoral and pedal pulses. There was no cyanosis, clubbing or edema. Examination of the skin revealed no evidence of significant rashes, suspicious appearing nevi or other concerning lesions. Neurologically, the patient does not have any focal neurological deficit. Cranial nerves are essentially intact. She is awake and alert. - Labs CBC & Chem 7: 08/25/20 03:15 08/25/20 03:15 Labs: Abnormal Lab Results - Last 24 Hours (Table) 08/24/20 08/24/20 08/24/20 Range/Units 13:56 14:03 16:15 WBC (3.8-10.6) k/uL RBC (3.80-5.40) m/uL Hgb (11.4-16.0) gm/dL Hct (34.0-46.0) % MCV (80.0-100.0) fL MCH (25.0-35.0) pg RDW (11.5-15.5) % Neutrophils # (1.3-7.7) k/uL ABG pCO2 49 H (35-45) mmHg ABG pO2 >400 H (83-108) mmHg ABG HCO3 27 H (21-25) mmol/L ABG Total CO2 28 H (19-24) mmol/L ABG O2 Saturation 99.6 H (94-97) % Chloride (98-107) mmol/L Creatinine (0.52-1.04) mg/dL POC Glucose (mg/dL) 106 H 110 H (75-99) mg/dL 08/24/20 08/24/20 08/25/20 Range/Units 16:39 16:39 03:15 WBC 15.1 H (3.8-10.6) k/uL RBC 3.20 L (3.80-5.40) m/uL Hgb 7.9 L (11.4-16.0) gm/dL Hct 25.3 L (34.0-46.0) % MCV 79.0 L (80.0-100.0) fL MCH 24.5 L (25.0-35.0) pg RDW 15.7 H (11.5-15.5) % Neutrophils # 13.2 H (1.3-7.7) k/uL ABG pCO2 (35-45) mmHg ABG pO2 (83-108) mmHg ABG HCO3 (21-25) mmol/L ABG Total CO2 (19-24) mmol/L ABG O2 Saturation (94-97) % Chloride 108 H (98-107) mmol/L Creatinine 1.30 H 1.31 H (0.52-1.04) mg/dL POC Glucose (mg/dL) (75-99) mg/dL 08/25/20 Range/Units 03:15 WBC 18.3 H (3.8-10.6) k/uL RBC 3.26 L (3.80-5.40) m/uL Hgb 8.2 L (11.4-16.0) gm/dL Hct 25.6 L (34.0-46.0) % MCV 78.7 L (80.0-100.0) fL MCH (25.0-35.0) pg RDW 15.9 H (11.5-15.5) % Neutrophils # 16.4 H (1.3-7.7) k/uL ABG pCO2 (35-45) mmHg ABG pO2 (83-108) mmHg ABG HCO3 (21-25) mmol/L ABG Total CO2 (19-24) mmol/L ABG O2 Saturation (94-97) % Chloride (98-107) mmol/L Creatinine (0.52-1.04) mg/dL POC Glucose (mg/dL) (75-99) mg/dL Microbiology - Last 24 Hours (Table) 08/23/20 20:43 Blood Culture - Preliminary Blood No Growth after 24 hours 08/23/20 17:07 Urine Culture - Final Urine,Voided 08/23/20 13:00 Blood Culture - Preliminary Blood No Growth after 24 hours 08/23/20 13:02 Blood Culture - Preliminary Blood No Growth after 24 hours Assessment and Plan Plan: 1 Acute hypoxic respiratory failure following bowel surgery which involved diverting colostomy. She was extubated yesterday and the recovery to a nasal cannula currently on 4 L and her pulse ox is at 94% chest x-ray showing some limited atelectatic change in the left lung base. 2 stage IIIB/IV squamous cell carcinoma of the cervix 3 rectal mass with secondary bowel obstruction and abdominal pain requiring diverting colostomy and the patient is postop day #1. Biopsies have been obtained awaiting final pathology, consider metastatic cervical cancer. 4 obstructive uropathy with bilateral hydronephrosis post-insertion of double-J stent. 5 chronic kidney disease and the patient's creatinine is at 1.3 , stable 6 anemia of chronic disease, hemoglobin is stable currently at 8.2 7 UTI maintained on a combination of cefepime and Flagyl 8 sinus tachycardia 9 status post port insertion 10 history of TIA/CVA with questionable brain bleed in 2008 11 polycystic ovary disease 12 IBS 13 chronic back pain 14 history of hip dislocation 15 history of psoriasis and rosacea 16 history of varicose veins 17 history of seizure disorders 18 history of hemorrhagic cystitis Plan Reduce the lactated Ringer infusion to 100 mL an hour Keep the Carbone catheter in place and monitor the urine output Continue cefepime and Flagyl as broad-spectrum antibiotic coverage Dilaudid for pain control IS Lovenox subcu for DVT prophylaxis 40 mg every 24 hours We'll take her to the ICU for the next 24 hours for further monitoring. Possible transfer to a medical surgical floor at a later stage. Monitor bowel activity. Colostomy site is viable yet nonfunctional yet.
[2020-08-25] MEDS: CEFEPIME 2 GM in SODIUM CHLORIDE 0.9% 100 ML IVPB SCH ×2 (09:54→21:50)
--- NOTE | 2020-08-25 10:21 | P.PN ---
Subjective Patient is seen in follow for acute kidney injury. Renal function stable. Complaining of abdominal discomfort at the surgical site. Nonoliguric. Receiving IV fluids. Vital signs are stable. General: The patient appeared well nourished and normally developed. HEENT: Head exam is unremarkable. Neck is without jugular venous distension. LUNGS: Breath sounds decreased. HEART: Tachycardic. ABDOMEN: Soft, generalized tenderness. EXTREMITITES: No edema. Objective - Vital Signs Vital signs: Vital Signs Temp 99.9 F H 08/25/20 08:00 Pulse 112 H 08/25/20 09:00 Resp 20 08/25/20 09:00 BP 119/69 08/25/20 09:00 Pulse Ox 93 L 08/25/20 09:00 Intake & Output 08/24/20 08/25/20 08/25/20 18:59 06:59 18:59 Intake Total 2700 1850 775 Output Total 1855 1515 375 Balance 845 335 400 Weight 90.718 kg 95 kg Intake: IV 2700 1850 775 Cefepime 2 gm In Sodium 100 100 Chloride 0.9% 100 ml @ 200 mls/hr IVPB Q12H [facility] Rx#:[id number] Lactated Ringers 1,000 ml 150 1650 575 @ 100 mls/hr IV .Q10H [facility] Rx#:[id number] metroNIDAZOLE-NS PMX 500 100 100 100 mg In Saline 1 100ml.bag @ 100 mls/hr IVPB Q8HR [facility] Rx#:[id number] Output: Urine 1820 1515 375 Estimated Blood Loss 35 Other: Voiding Method Indwelling Catheter Indwelling Catheter - Labs CBC & Chem 7: 08/25/20 03:15 08/25/20 03:15 Labs: Abnormal Lab Results - Last 24 Hours (Table) 08/24/20 08/24/20 08/24/20 Range/Units 13:56 14:03 16:15 WBC (3.8-10.6) k/uL RBC (3.80-5.40) m/uL Hgb (11.4-16.0) gm/dL Hct (34.0-46.0) % MCV (80.0-100.0) fL MCH (25.0-35.0) pg RDW (11.5-15.5) % Neutrophils # (1.3-7.7) k/uL ABG pCO2 49 H (35-45) mmHg ABG pO2 >400 H (83-108) mmHg ABG HCO3 27 H (21-25) mmol/L ABG Total CO2 28 H (19-24) mmol/L ABG O2 Saturation 99.6 H (94-97) % Chloride (98-107) mmol/L Creatinine (0.52-1.04) mg/dL POC Glucose (mg/dL) 106 H 110 H (75-99) mg/dL 08/24/20 08/24/20 08/25/20 Range/Units 16:39 16:39 03:15 WBC 15.1 H (3.8-10.6) k/uL RBC 3.20 L (3.80-5.40) m/uL Hgb 7.9 L (11.4-16.0) gm/dL Hct 25.3 L (34.0-46.0) % MCV 79.0 L (80.0-100.0) fL MCH 24.5 L (25.0-35.0) pg RDW 15.7 H (11.5-15.5) % Neutrophils # 13.2 H (1.3-7.7) k/uL ABG pCO2 (35-45) mmHg ABG pO2 (83-108) mmHg ABG HCO3 (21-25) mmol/L ABG Total CO2 (19-24) mmol/L ABG O2 Saturation (94-97) % Chloride 108 H (98-107) mmol/L Creatinine 1.30 H 1.31 H (0.52-1.04) mg/dL POC Glucose (mg/dL) (75-99) mg/dL 08/25/20 Range/Units 03:15 WBC 18.3 H (3.8-10.6) k/uL RBC 3.26 L (3.80-5.40) m/uL Hgb 8.2 L (11.4-16.0) gm/dL Hct 25.6 L (34.0-46.0) % MCV 78.7 L (80.0-100.0) fL MCH (25.0-35.0) pg RDW 15.9 H (11.5-15.5) % Neutrophils # 16.4 H (1.3-7.7) k/uL ABG pCO2 (35-45) mmHg ABG pO2 (83-108) mmHg ABG HCO3 (21-25) mmol/L ABG Total CO2 (19-24) mmol/L ABG O2 Saturation (94-97) % Chloride (98-107) mmol/L Creatinine (0.52-1.04) mg/dL POC Glucose (mg/dL) (75-99) mg/dL Microbiology - Last 24 Hours (Table) 08/23/20 20:43 Blood Culture - Preliminary Blood No Growth after 24 hours 08/23/20 17:07 Urine Culture - Final Urine,Voided 08/23/20 13:00 Blood Culture - Preliminary Blood No Growth after 24 hours 08/23/20 13:02 Blood Culture - Preliminary Blood No Growth after 24 hours Assessment and Plan Plan: Assessment: 1. Acute kidney injury secondary to obstructive uropathy status post bilateral ureteral stent placement. Renal function stable. Creatinine 1.3 today. 2. Cervical cancer. 3. Rectal mass with bowel obstruction status post diverting colostomy on 08/24/2020. 4. Anemia of chronic illness. Plan: Decreased rate of LR 200 mL an hour. Diet to be advanced per surgical recommendations. No output from the colostomy so far. Continue to monitor renal function and urine output.
[2020-08-25 12:09] LABS: Glucose,Whole Blood 91 mg/dL (75-99)
--- NOTE | 2020-08-25 13:38 | P.PN ---
Subjective Progress Note Date: 08/25/20 CHIEF COMPLAINT: Near obstructing rectal mass HISTORY OF PRESENT ILLNESS: Surgical service is following regards to patient's rectal mass. She underwent EGD and colonoscopy which had showed mild antral gas tritis and near obstructing rectal mass. Patient is now status post diverging colostomy for obstructing rectal mass. Patient remains in the ICU for close observation. There were concerns initially the patient may require to be reintubated. She is currently on 4 L nasal cannula. No evidence of any distress. She is requiring pain medication every hour. She is requiring Zofran for nausea. No output through her ostomy. She's afebrile. WBC is 18.3 hemoglobin 8.2 Patient seen and examined with Dr. arguelles PHYSICAL EXAM: VITAL SIGNS: Reviewed. GENERAL: Well-developed in no acute distress. HEENT: No sclera icterus. Extraocular movements grossly intact. Moist buccal mucosa. Head is atraumatic, normocephalic. ABDOMEN: Soft. Colostomy on left abdomen service sanguinous drainage noted. NEUROLOGIC: Alert and oriented. Cranial nerves II through XII grossly intact. ASSESSMENT: 1. Near obstructing rectal mass status post diverting colostomy 2. Metastatic cervical cancer PLAN: -Continue ICU management -Continue supportive care -Keep patient nothing by mouth -Antibiotics per ID -GI prophylaxis Pepcid and DVT prophylaxis Lovenox Physician Anesthesiology Tech note has been reviewed by physician. Signing provider agrees with the documented findings, assessment, and plan of care. Objective - Vital Signs Vital signs: Vital Signs Temp 99.9 F H 08/25/20 12:05 Pulse 110 H 08/25/20 13:00 Resp 20 08/25/20 13:00 BP 132/92 08/25/20 13:00 Pulse Ox 96 08/25/20 13:00 Intake & Output 08/24/20 08/25/20 08/25/20 18:59 06:59 18:59 Intake Total 2700 1850 1075 Output Total 1855 1515 725 Balance 845 335 350 Weight 90.718 kg 95 kg Intake: IV 2700 1850 1075 Cefepime 2 gm In Sodium 100 100 Chloride 0.9% 100 ml @ 200 mls/hr IVPB Q12H [facility] Rx#:[id number] Lactated Ringers 1,000 ml 150 1650 875 @ 100 mls/hr IV .Q10H [facility] Rx#:[id number] metroNIDAZOLE-NS PMX 500 100 100 100 mg In Saline 1 100ml.bag @ 100 mls/hr IVPB Q8HR [facility] Rx#:[id number] Output: Urine 1820 1515 725 Estimated Blood Loss 35 Other: Voiding Method Indwelling Catheter Indwelling Catheter Indwelling Catheter - Labs CBC & Chem 7: 08/25/20 03:15 08/25/20 03:15 Labs: Abnormal Lab Results - Last 24 Hours (Table) 08/24/20 08/24/20 08/24/20 Range/Units 13:56 14:03 16:15 WBC (3.8-10.6) k/uL RBC (3.80-5.40) m/uL Hgb (11.4-16.0) gm/dL Hct (34.0-46.0) % MCV (80.0-100.0) fL MCH (25.0-35.0) pg RDW (11.5-15.5) % Neutrophils # (1.3-7.7) k/uL ABG pCO2 49 H (35-45) mmHg ABG pO2 >400 H (83-108) mmHg ABG HCO3 27 H (21-25) mmol/L ABG Total CO2 28 H (19-24) mmol/L ABG O2 Saturation 99.6 H (94-97) % Chloride (98-107) mmol/L Creatinine (0.52-1.04) mg/dL POC Glucose (mg/dL) 106 H 110 H (75-99) mg/dL 08/24/20 08/24/20 08/25/20 Range/Units 16:39 16:39 03:15 WBC 15.1 H (3.8-10.6) k/uL RBC 3.20 L (3.80-5.40) m/uL Hgb 7.9 L (11.4-16.0) gm/dL Hct 25.3 L (34.0-46.0) % MCV 79.0 L (80.0-100.0) fL MCH 24.5 L (25.0-35.0) pg RDW 15.7 H (11.5-15.5) % Neutrophils # 13.2 H (1.3-7.7) k/uL ABG pCO2 (35-45) mmHg ABG pO2 (83-108) mmHg ABG HCO3 (21-25) mmol/L ABG Total CO2 (19-24) mmol/L ABG O2 Saturation (94-97) % Chloride 108 H (98-107) mmol/L Creatinine 1.30 H 1.31 H (0.52-1.04) mg/dL POC Glucose (mg/dL) (75-99) mg/dL 08/25/20 Range/Units 03:15 WBC 18.3 H (3.8-10.6) k/uL RBC 3.26 L (3.80-5.40) m/uL Hgb 8.2 L (11.4-16.0) gm/dL Hct 25.6 L (34.0-46.0) % MCV 78.7 L (80.0-100.0) fL MCH (25.0-35.0) pg RDW 15.9 H (11.5-15.5) % Neutrophils # 16.4 H (1.3-7.7) k/uL ABG pCO2 (35-45) mmHg ABG pO2 (83-108) mmHg ABG HCO3 (21-25) mmol/L ABG Total CO2 (19-24) mmol/L ABG O2 Saturation (94-97) % Chloride (98-107) mmol/L Creatinine (0.52-1.04) mg/dL POC Glucose (mg/dL) (75-99) mg/dL Microbiology - Last 24 Hours (Table) 08/23/20 20:43 Blood Culture - Preliminary Blood No Growth after 24 hours 08/23/20 17:07 Urine Culture - Final Urine,Voided 08/23/20 13:00 Blood Culture - Preliminary Blood No Growth after 24 hours 08/23/20 13:02 Blood Culture - Preliminary Blood No Growth after 24 hours
--- NOTE | 2020-08-25 14:14 | P.PN ---
Subjective Progress Note Date: 08/25/20 Sepsis/UTI Locally advanced cervical cancer Bilateral hydronephrosis secondary to urinary obstruction secondary to locally advanced cervical cancer/hemorrhagic cystitis Arin-rectal density/Rectal wall thickening/proctitis 45-year-old female that presents to emergency with abdominal pain. She was recently diagnosed with cervical cancer. She notes that she self catheterizes for urinary retention. She presents emergency with abdominal pain nausea vomiting. She was in bed in pain and was unable to give accurate answers to examination questions. Patient had bilateral ureteral stents placed on 06/02. She denied any chest pain shortness of breath headache fatigue hematochezia melena. White blood cells 15.1, urinalysis: Bloody, red blood cells greater than 182, white blood cells greater than 182. Cefepime and vancomycin ordered. KUB: Nonacute abdomen. The right ureteral stent appears more inferior than last exam. CT of the abdomen and pelvis: There is some minimal reticular nodular infiltrate at the lung bases. Extensive inflammatory changes in the pelvis with perirectal density measuring up to almost 3 cm in thickness. This is worse than last exam. Consider both inflammatory disease and malignancy. There is bilateral moderate hydronephrosis which appears to same or slightly worse than last exam. Stent malfunction is possible. There is increased reticular nodular interstitial infiltrate the lung bases compared to old exam. 08/16/2020 Patient is seen and evaluated at room at bedside; complained of [id number] distress secondary to uncontrolled pain; pain medications have been adjusted by oncology; patient continues to complain of abdominal pain but significantly improved from yesterday; no complaining of nausea vomiting; patient has a Carbone catheter in Vital signs are reviewed temperature of 98.1 with T-max of 102.4, pulse 118, respiration 18 and blood pressure of 104/64 with SpO2 of 93% on 3 L Laboratory review reveals a WBC of 7.2, hemoglobin of 7.5 and platelet count of 186; sodium of 139, potassium 4.5 and B UN/creatinine of 22/1.7; blood culture preliminary report reveals gram-positive bacillary; urine culture is negative so far Patient has been evaluated by oncology and is recommended to proceed with colonoscopy; continue with broad-spectrum IV antibiotic coverage with cefepime, Flagyl and vancomycin; patient will likely need to be treated with chemotherapy and radiation therapy for cervical cancer; radiation oncology to see patient and make recommendations Renal function is improving with creatinine down to 1.7 from 1.9 yesterday; we will continue with IV fluid hydration and monitor strict SHIRA's, daily weights, renal function and electrolytes; we will consult nephrology for management of renal function since patient need improved renal function prior to starting chemotherapy 08/17/2020 Patient is complaining of also complaining of hematuria patient's hemoglobin did drop to 6.8 we'll transfuse 1 unit of PRBC transfusion patient leukocytosis improved patient's creatinine is improving and presently 1.2. I spent significant amount of time counseling the patient and also explaining her pain patient will be started on long-acting opiate that is fentanyl patch and will continue with [place] as needed as well as morphine as needed but patient doesn't want morphine for pain. sodium to prophylaxis will be discontinued. Aft er the chest x-ray unfortunately I am unable to view the images but was read as previously scheduled disease cannot be ruled out patient is wheezing on exam although patient is apparently ALLERGIC to steroids because of which are just started on inhalational treatments titrating well at 98% on 4 L of oxygen. Patient is not tachycardic anymore. 08/18/2020 Patient is seen in follow-up continues to have multiple complaints of pain and is extremely tearful of her current situation. Patient has had Carbone catheter removed and states she voided and will continue straight catheter if unable to empty the bladder. Urology has evaluated the patient. Multiple medical consultations including surgery, oncology, nephrology, radiation oncology, and infectious disease following. is continued on IV antibiotics in the form of a for pain and Flagyl and will continue at this time. Repeat urine cultures and blood cultures have remained negative. Patient's hemoglobin is 9.2 today status post 1 unit of PRBCs yesterday, white blood count is 10.4, sodium is 137 with a potassium of 4.5. Current creatinine slightly worsened at 1.49 and nephrology is following. Continue with IV fluids at this time. And will repeat labs. Patient continues to have constipation and will continue with lactulose and Colace. Patient is scheduled tentatively to have an EGD and colonoscopy on and will likely start the bowel prep tomorrow. Patient continues to have severe pain and has multiple narcotic medications on board and will discontinue 2 mg of Dilaudid every 3 hours at this time. Patient does have MS Contin and fentanyl on board as well and oncology is following. 08/19/2020 Patient is seen in follow-up continues to be in pain stating "everywhere". Patient continues to have rectal tenderness and fecal incontinence and is currently wearing a brief. plans are for EGD colonoscopy with surgery tomorrow and bowel prep will start today. Patient is having loose gelatinous beard-colored loose stool and will obtain C. diff specimen. Patient's white count is slightly elevated at 11.99, hemoglobin is 8.6 with no active bleeding noted, sodium 137, potassium 4.1, creatinine 1.3. Patient is maintained on IV hydration and will continue. Nephrology following. Patient underwent abdominal series x-ray yesterday showing a kinking of the right ureteral stent with nonobstructive bowel gas pattern in no acute cardiopulmonary abnormalities. Patient also had a lumbar x-ray as she had recently fallen prior to admission showing mild spondylosis without acute osseous abnormality with no fractures or subluxations noted. Patient continues to refuse Carbone catheter stating it was causing immen se pain and not tolerating straight catheterization per nursing staff. Urology is following. 08/20/2020 Patient is seen this morning continues to be tearful and out of sorts and having difficulty with urination. Patient is supposed to be using straight catheter and self catheterization although states she was never educated on this and is having difficulties. Urology has educated the patient and nursing staff will continue to attempt to educate. Patient was started on the bowel prep yesterday and apparently throughout the night did not continue and states she was not told to do so in the EGD/colonoscopy is being rescheduled for tomorrow morning. Patient will continue on clear liquids and continue with the bowel prep and be nothing by mouth at midnight. Multiple medical consultations following. Patient is maintained on IV antibiotics and will continue. Patient is afebrile although white blood count is on an upward trend today at 17.2 and hemoglobin is stable at 9.3 with no active bleeding noted. Creatinine slightly elevated at 1.37 and will repeat labs in continue to monitor. Patient continues on 4 L of oxygen with a 99% oxygen saturation and does have breathing treatments ordered but is refusing at this time. Patient does use inhalers in the outpatient setting as needed. 08/21/2020 Patient is seen this morning status post EGD colonoscopy and biopsies were obtained from the EGD along with colonoscopy and a large almost completely obstructing colon mass was noted and plans are for surgical intervention on Monday of a diverting colostomy. Multiple medical consultations following. Creatinine slightly improved at 1.33 today and will discontinue IV fluids, potassium is 3.8, sodium is 142. White blood count trending down at 14.1 and hemoglobin is 8.7 and will continue to monitor with repeat labs in the morning. No active bleeding is noted. Patient continues to require straight catheterization for urinary retention as she is refusing indwelling Carbone [address] and needs continuous education on learning how to self catheter and nursing staff continues to work with her and educate her on this process. Patient Is extremely anxious and tearful and psychiatry was consulted. Patient continues on cefepime and Flagyl IV with infectious disease following. 08/22/2020 Patient seen on follow-up, she is resting comfortably, , creatinine stable 1.3 fluids are hep-locked at this time. White count continues to come to 13.4 today. No fever, hemodynamically stable saturating above 90% on 2 L nasal cannula. Receiving antimicrobial therapy with cefepime and Flagyl. 08/23/2020 Patient seen sitting up in wheelchair, in no acute distress. Running low-grade fever this morning 100.1. Is continued on antimicrobial therapy cefepime and Flagyl. Blood pressure stable, she is on 2 L nasal cannula saturating above 90%. Using Dilaudid as needed for pain. She is planned for possible diverting colostomy placement 08/24/2020 Patient has been nothing by mouth since midnight and scheduled for diverting ostomy placement with Dr. Rivera today and will await report. Multiple medical consultations including oncology and infectious disease following. Patient white count today slightly improved at 14.8 and hemoglobin is stable at 8.8 with no active bleeding noted. Sodium noted to be 138 with a potassium of 3.7 and current creatinine is 1.52. Lactic acid has improved at 1.4. 08/25/2020 Patient is currently being monitored in the ICU status post diverting colostomy yesterday for continued close monitoring as she was recently extubated. Patient is currently maintained on 6 L of oxygen via nasal cannula and weaning as tolerated. Patient continues to refuse breathing treatments until seen by a domestic cleaner. Patient is being followed by [facility] and will discuss with them today. Patient oxygen saturation currently 96%. Blood pressu re stable and patient continues to be tachycardia with low-grade intermittent fevers of 99.9. Patient is continued on fluids along with IV antibiotics in the form of cefepime and Flagyl and will continue. Infectious disease also following. No output noted in the ostomy as of yet. Patient continues to be nothing by mouth per surgery recommendations and has been having occasional ice chips. White blood count today is 18.3, hemoglobin is 8.2, sodium 138, potassium 3.6, creatinine stable 1.31 and nephrology is following. Constitutional: Denied any fatigue denied any fever. Cardiovascular: denied any chest pain, palpitations Gastrointestinal denied any nausea vomiting, new colostomy with no output noted Pulmonary: Reports shortness of breath Neurologic denied any new focal deficits All inpatient medications were reviewed and appropriate changes in these medications as dictated in the interval history and assessment and plan. Objective - Vital Signs Vital signs: Vital Signs Temp 99.9 F H 08/25/20 08:00 Pulse 105 H 08/25/20 08:00 Resp 22 08/25/20 08:00 BP 124/76 08/25/20 08:00 Pulse Ox 95 08/25/20 08:31 Intake & Output 08/24/20 08/25/20 08/25/20 18:59 06:59 18:59 Intake Total 2700 1850 400 Output Total 1855 1515 165 Balance 845 335 235 Weight 90.718 kg 95 kg Intake: IV 2700 1850 400 Cefepime 2 gm In Sodium 100 Chloride 0.9% 100 ml @ 200 mls/hr IVPB Q12H [facility] Rx#:[id number] Lactated Ringers 1,000 ml 150 1650 300 @ 150 mls/hr IV .Q6H40M IS[facility] Rx#:[id number] metroNIDAZOLE-NS PMX 500 100 100 100 mg In Saline 1 100ml.bag @ 100 mls/hr IVPB Q8HR IS[facility] Rx#:[id number] Output: Urine 1820 1515 165 Estimated Blood Loss 35 Other: Voiding Method Indwelling Catheter Indwelling Catheter - Exam GENERAL: The patient is alert and oriented x3, not in any acute distress. Well developed, well nourished. HEENT: Pupils are round and equally reacting to light. EOMI. No scleral icterus. No conjunctival pallor. Normocephalic, atraumatic. No pharyngeal erythema. No thyromegaly. CARDIOVASCULAR: S1 and S2 present. No murmurs, rubs, or gallops. PULMONARY: Diminished breath sounds with some bilateral scattered rhonchi ABDOMEN: Soft, nontender, nondistended, normoactive bowel sounds. No palpable organomegaly. MUSCULOSKELETAL: No joint swelling or deformity. EXTREMITIES: No cyanosis, clubbing, or pedal edema. NEUROLOGICAL: Gross neurological examination did not reveal any focal deficits. SKIN: No rashes. - Labs CBC & Chem 7: 08/25/20 03:15 08/25/20 03:15 Labs: Abnormal Lab Results - Last 24 Hours (Table) 08/24/20 08/24/20 08/24/20 Range/Units 13:56 14:03 16:15 WBC (3.8-10.6) k/uL RBC (3.80-5.40) m/uL Hgb (11.4-16.0) gm/dL Hct (34.0-46.0) % MCV (80.0-100.0) fL MCH (25.0-35.0) pg RDW (11.5-15.5) % Neutrophils # (1.3-7.7) k/uL ABG pCO2 49 H (35-45) mmHg ABG pO2 >400 H (83-108) mmHg ABG HCO3 27 H (21-25) mmol/L ABG Total CO2 28 H (19-24) mmol/L ABG O2 Saturation 99.6 H (94-97) % Chloride (98-107) mmol/L Creatinine (0.52-1.04) mg/dL POC Glucose (mg/dL) 106 H 110 H (75-99) mg/dL 08/24/20 08/24/20 08/25/20 Range/Units 16:39 16:39 03:15 WBC 15.1 H (3.8-10.6) k/uL RBC 3.20 L (3.80-5.40) m/uL Hgb 7.9 L (11.4-16.0) gm/dL Hct 25.3 L (34.0-46.0) % MCV 79.0 L (80.0-100.0) fL MCH 24.5 L (25.0-35.0) pg RDW 15.7 H (11.5-15.5) % Neutrophils # 13.2 H (1.3-7.7) k/uL ABG pCO2 (35-45) mmHg ABG pO2 (83-108) mmHg ABG HCO3 (21-25) mmol/L ABG Total CO2 (19-24) mmol/L ABG O2 Saturation (94-97) % Chloride 108 H (98-107) mmol/L Creatinine 1.30 H 1.31 H (0.52-1.04) mg/dL POC Glucose (mg/dL) (75-99) mg/dL 08/25/20 Range/Units 03:15 WBC 18.3 H (3.8-10.6) k/uL RBC 3.26 L (3.80-5.40) m/uL Hgb 8.2 L (11.4-16.0) gm/dL Hct 25.6 L (34.0-46.0) % MCV 78.7 L (80.0-100.0) fL MCH (25.0-35.0) pg RDW 15.9 H (11.5-15.5) % Neutrophils # 16.4 H (1.3-7.7) k/uL ABG pCO2 (35-45) mmHg ABG pO2 (83-108) mmHg ABG HCO3 (21-25) mmol/L ABG Total CO2 (19-24) mmol/L ABG O2 Saturation (94-97) % Chloride (98-107) mmol/L Creatinine (0.52-1.04) mg/dL POC Glucose (mg/dL) (75-99) mg/dL Microbiology - Last 24 Hours (Table) 08/23/20 20:43 Blood Culture - Preliminary Blood No Growth after 24 hours 08/23/20 17:07 Urine Culture - Final Urine,Voided 08/23/20 13:00 Blood Culture - Preliminary Blood No Growth after 24 hours 08/23/20 13:02 Blood Culture - Preliminary Blood No Growth after 24 hours Assessment and Plan Assessment: -Abdominal pain with arin-rectal density/thickness, patient is being treated for colitis. CT abdomen reveals inflammatory changes and rectal area; possibly secondary to inflammation versus related to cervical cancer; surgery also following and patient underwent EGD colonoscopy with mild gastritis and large rectal mass almost obstructing noted with multiple biopsies obtained. Patient underwent diverting colostomy with surgery yesterday -Acute hypoxic respiratory failure status post diverting colostomy placement surgery -Status post diverting colostomy postop day #1 -Large rectal mass as noted on colonoscopy, underwent diverting colostomy yesterday and pathology report pending -Urinary obstruction/hydronephrosis; possible stent malfunctioning; urology on board and recommending a double-J catheter in the near future in the outpatient setting. Indwelling Carbone catheter replaced for strict I&O's -Hemorrhagic Cystitis; patient was evaluated by urology and is recommending double-J catheters due to cervical cancer in the outpatient setting; urine culture remains negative -Cervical cancer; oncology following and will need close outpatient follow-up. Patient states her gynecological oncologist is out of [facility] -Acute renal injury/ dehydration; continued on lactated Ringer's status post surgery and nephrology following -Acute blood loss and anemia from possible hematuria, no bleeding noted. hemoglobin is 8.2 -Shortness of breath: Probably secondary to COPD acute exacerbation, currently requiring 6 L of oxygen although weaning as tolerated as she is 96% on 6 L status post extubation for surgery -Pain management: Patient was started on longer acting opiate fentanyl patch along with the [place] and oral morphine for breakthrough pain will try to wean off IV Dilaudid. Oncology managing pain medications. -DVT prophylaxis -GI prophylaxis -Full code Plan: Continue current medications and current IV antibiotic therapy. Patient underwent diverting colostomy with surgery yesterday and was placed in the ICU for close monitoring secondary to acute hypoxic respiratory failure and extubated last night. We'll continue with IV fluids and will repeat a.m. labs. Multiple medical consultations following. Encouraged incentive spirometer at least 10 times every hour while awake. Ostomy noted with no output as of yet. Patient also received a Mediport on the right chest.
[2020-08-25] MEDS: ONDANSETRON 4 MG/2 ML VIAL IVP PRN (14:35)
--- NOTE | 2020-08-25 22:33 | PN ---
PROGRESS NOTE DATE OF SERVICE: 08/25/2020 REASON FOR FOLLOWUP: Complicated UTI and proctitis. INTERVAL HISTORY: The patient is afebrile. The patient was taken to the OR. The patient is status post diverting colostomy for obstructing tumor. The patient tolerated the procedure. Currently in the ICU. The patient denies having chest pain, shortness of breath. Occasional cough. Still complaining of pain in the lower abdominal area. No vomiting. PHYSICAL EXAMINATION: Blood pressure 136/76, pulse 100, temperature of 99.5. She is 94% on 6 L nasal cannula. General description is a middle-aged female lying in bed in no distress. RESPIRATORY SYSTEM: Unlabored breathing. Clear to auscultation anteriorly. HEART: S1, S2. Regular rate and rhythm. ABDOMEN: Soft. Mildly tender. No guarding or rigidity. LAB: Hemoglobin 8.2, white count 18.3. BUN of 13, creatinine 0.31. DIAGNOSTIC IMPRESSION AND PLAN: Patient with metastatic cervical cancer with obstructive to the rectum, status post diverting colostomy. The patient is covered with cefepime, Flagyl; to continue while monitoring clinical course closely. Continue with supportive care. MMODL / IJN: [id number] /
[2020-08-26] MEDS: HYDROmorphone 0.5 MG/0.5 ML SYRINGE IVP PRN ×6 (00:51→09:59)
[2020-08-26] MEDS: ONDANSETRON 4 MG/2 ML VIAL IVP PRN ×2 (00:57→08:56)
[2020-08-26] MEDS: HYDROmorphone 1 MG/ML 1 ML SYRINGE IVP PRN ×3 (01:51→08:48)
[2020-08-26] MEDS ORDERED: ACETAMINOPHEN IV (For NPO) 1,000 MG in EMPTY BAG 1 BAG IVPB ONE (03:15)
[2020-08-26 04:57] LABS: Basophils # (A) 0.1 k/uL (0-0.2); Basophils % (A) 0 %; Eosinophils # (A) 0.3 k/uL (0-0.7); Eosinophils % (A) 2 %; HGB 7.9 gm/dL (11.4-16.0); Hypochromasia Marked; Lymphocytes # (A) 1.1 k/uL (1.0-4.8); Lymphocytes % (A) 6 %; MCH 24.8 pg (25.0-35.0); MCHC 31.6 g/dL (31.0-37.0); MCV 78.7 fL (80.0-100.0); Mean Platelet Volume 7.8; Monocytes # (A) 0.7 k/uL (0-1.0); Monocytes % (A) 4 %; Neutrophils # (A) 14.6 k/uL (1.3-7.7); Neutrophils % (A) 86 %; Platelet Count 177 k/uL (150-450); RBC 3.17 m/uL (3.80-5.40); RDW 15.8 % (11.5-15.5); WBC 16.9 k/uL (3.8-10.6)
[2020-08-26 05:19] LABS: Albumin 2.7 g/dL (3.5-5.0); Calcium 8.3 mg/dL (8.4-10.2); Magnesium 1.9 mg/dL (1.6-2.3); Total Bilirubin 0.8 mg/dL (0.2-1.3); Total Protein 6.4 g/dL (6.3-8.2)
[2020-08-26] MEDS: IPRATROPIUM-ALBUTEROL 3 ML NEB INHALATION SCH ×4 (07:19→20:16)
[2020-08-26] MEDS: LACTATED RINGERS 1,000 ML IV SCH ×3 (08:40→10:02)
[2020-08-26] MEDS: metroNIDAZOLE-NS PMX 500 MG in SALINE 1 100ML.BAG IVPB SCH ×3 (08:47→23:37)
[2020-08-26] MEDS: ENOXAPARIN 40 MG/0.4 ML SYRINGE SQ SCH (08:48)
[2020-08-26] MEDS: FAMOTIDINE 20 MG/2 ML VIAL IV SCH ×2 (08:48→21:06)
[2020-08-26] MEDS: CEFEPIME 2 GM in SODIUM CHLORIDE 0.9% 100 ML IVPB SCH ×2 (09:57→21:06)
[2020-08-26] MEDS ORDERED: NALOXONE 0.4 MG/ML 1 ML VIAL IV PRN (10:26)
--- NOTE | 2020-08-26 10:27 | P.PN ---
Subjective Progress Note Date: 08/26/20 45-year-old female patient who is post diverticular colostomy and insertion of a Mediport. I was asked to evaluate this patient in the recovery as the patient was kept intubated on a mechanical ventilator and anesthesia was quite hesitant to extubate this patient and the patient was kept intubated and the patient was asked to be transferred to the intensive care unit. Still awaiting a bed in the ICU. Currently she is intubated by #7 orotracheal tube. At a time of my arrival, she was assist-control mode at the rate of 14 with a tidal volume of 400 and FiO2 of 100% with a PEEP of 5. The blood gas showed a pH of 7.35 with a pCO2 of 49 and a pO2 of more than 400 and based on that the FiO2 was down to 50%. Her current pulse ox is 97%. She is on propofol which is running at 50 mcg/kg per minute. She is hemodynamically stable. She is a blood pressure 121/75. She is on IV fluids in the form of 0.9 at the rate of KVO and lactated Ringer at the rate of 100 mL an hour. She has adequate urine output. No orogastric tube in place at this point in time. Her abdomen is slightly distended. Colostomy is seen in the left upper quadrant and it's quite viable at this point in time. She has been receiving Dilaudid for pain control. Her postop chest x-ray showed adequate positioning of the ET tube. The patient has a Mediport in a good location. She also has developed some atelectatic porsche nges/infiltrate in the right lung base which are obviously new finding compared to the earlier chest x-ray. White cell count from this morning's of 14.8 with a hemoglobin of 8.8. The creatinine is up to 1.52 and the patient's electrodes are all within normal limits. Most recent urine cultures been negative. She has multiple ALLERGIES. She is currently on IV cefepime and Flagyl as empiric antibiotic coverage. 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 The patient initially presented to us with abdominal pain. She does have chronic urinary retention and the patient undergoes self-catheterization. She has also bilateral ureteral stents that were placed on 06/25/2020. The patient has moderate hydronephrosis of the kidneys bilaterally. The patient also had bowel obstruction and a colonoscopy was done by general surgery that showed an obstructive mass at the level of the anal verge and for that reason the recommendation was to proceed with diverticulitis colostomy.. Note that the patient was found to have an obstructing rectal mass at the level of the anal verge. 08/25/2020, the patient is in the intensive care unit. She is currently extubated on 4 L of oxygen by nasal cannula. I extubated yesterday in the recovery room. She did very well. She was given IV fluids. Her sinus tachycardia improved and currently her heart rate is somewhere between 100-110, sinus rhythm. She is still having diffuse abdominal discomfort and pain. She is on Dilaudid for pain control. She has some sluggish bowel sounds. The colostomy site is viable yet nonfunctional yet. There is no output is emanating in the colostomy bag. She is on lactated Ringer at the rate of 150 mL an hour. Her chest x-ray showing some limited left basilar atelectasis. White cell count of 18.3 with hemoglobin of 8.2. Creatinine stable at 1.3 and the rest of the electrodes are all within normal limits. The patient remains on IV cefepime as an empiric antibiotic coverage in combination with Flagyl. Blood cultures of been negative. 08/26/2020, patient for a follow-up. The patient remains extubated and she is awake and alert and she is postop day #2. She is currently on 5 L of oxygen by nasal cannula. She is using incentive spirometer and she is pulling approximately 500 mL. No signs of any respiratory distress. The chest x-ray from yesterday showed some atelectatic changes in the lung bases. Otherwise, no significant cough sputum production. No signs of any respiratory distress. The patient is having some bowel sounds. She was given clear liquids and she has some liquid and magnesium accumulating in the stoma. Her stoma is viable and there is also some functionality. No abdominal distention. No emesis. She remains in some mild degree of sinus tachycardia. She is receiving Dilaudid for pain control. She has received already 1 mg of Dilaudid every 3 hours and 0.5 mg every 1 hour. She was also started on a fentanyl patch 50 g every 72 hours. Antibiotic coverage is with a combination of cefepime and Flagyl. WBC count of 16.9 and the patient symptoms at 7.9. Electrolytes are all within normal limits. Renal function is improving and creatinine is down to 1.05. LFTs are showing an AST of 55, ALT of 18 with alkaline phosphatase of 241. The patient has not ambulated yet. We are going to try to at least get up on a chair for today. She is quite debilitated following her surgery. Objective - Vital Signs Vital signs: Vital Signs Temp 98.9 F 08/26/20 08:00 Pulse 112 H 08/26/20 10:00 Resp 22 08/26/20 10:00 BP 137/78 08/26/20 10:00 Pulse Ox 91 L 08/26/20 10:00 Intake & Output 08/25/20 08/26/20 08/26/20 18:59 06:59 18:59 Intake Total 1875 1300 500 Output Total 1285 1150 241 Balance 590 150 259 Weight 94.1 kg Intake: IV 1675 1300 500 Cefepime 2 gm In Sodium 100 100 Chloride 0.9% 100 ml @ 200 mls/hr IVPB Q12H [facility] Rx#:[id number] Lactated Ringers 1,000 ml 1375 1300 300 @ 80 mls/hr IV .[id number] [facility] Rx#:[id number] metroNIDAZOLE-NS PMX 500 200 100 mg In Saline 1 100ml.bag @ 100 mls/hr IVPB Q8HR [facility] Rx#:[id number] Oral 200 Output: Urine 1285 1150 241 Other: Voiding Method Indwelling Catheter Indwelling Catheter Indwelling Catheter - Exam Is currently sedated, comfortable, on 5 l 02 NC Head exam was generally normal. There was no scleral icterus or corneal arcus. Mucous membranes were moist. Neck was supple and without jugular venous distension, thyromegaly, or carotid bruits. Carotids were easily palpable bilaterally. There was no adenopathy. Lungs sounds are diminished bilaterally otherwise the vessels are equal and symmetrical there is no wheezes overall currently crackles. Cardiac exam revealed the PMI to be normally situated and sized. The rhythm was regular and no extrasystoles were noted during several minutes of auscultation. The first and second heart sounds were normal and physiologic splitting of the second heart sound was noted. There were no murmurs, rubs, clicks, or gallops. Abdomen is soft and the patient has minimal bowel sounds. She has diabetic colostomy in the left upper quadrant. The colostomy site is viable anything. No direct tenderness. No rebound tenderness. No guarding. Examination of the extremities revealed easily palpable radial, femoral and pedal pulses. There was no cyanosis, clubbing or edema. Examination of the skin revealed no evidence of significant rashes, suspicious appearing nevi or other concerning lesions. Neurologically, the patient does not have any focal neurological deficit. Cranial nerves are essentially intact. She is awake and alert. - Labs CBC & Chem 7: 08/26/20 04:35 08/26/20 04:35 Labs: Abnormal Lab Results - Last 24 Hours (Table) 08/26/20 08/26/20 Range/Units 04:35 04:35 WBC 16.9 H (3.8-10.6) k/uL RBC 3.17 L (3.80-5.40) m/uL Hgb 7.9 L (11.4-16.0) gm/dL Hct 25.0 L (34.0-46.0) % MCV 78.7 L (80.0-100.0) fL MCH 24.8 L (25.0-35.0) pg RDW 15.8 H (11.5-15.5) % Neutrophils # 14.6 H (1.3-7.7) k/uL Creatinine 1.05 H (0.52-1.04) mg/dL Calcium 8.3 L (8.4-10.2) mg/dL AST 55 H (14-36) U/L Alkaline Phosphatase 241 H (38-126) U/L Albumin 2.7 L (3.5-5.0) g/dL Microbiology - Last 24 Hours (Table) 08/23/20 20:43 Blood Culture - Preliminary Blood No Growth after 48 hours 08/23/20 13:02 Blood Culture - Preliminary Blood No Growth after 48 hours 08/23/20 13:00 Blood Culture - Preliminary Blood No Growth after 48 hours Assessment and Plan Plan: 1 Acute hypoxic respiratory failure following bowel surgery which involved diverting colostomy. 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 Biopsies have been obtained awaiting final pathology, consider metastatic cervical cancer. 4 obstructive uropathy with bilateral hydronephrosis post-insertion of double-J stent. 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 bleed in 2008 11 polycystic ovary disease 12 IBS 13 chronic back pain 14 history of hip dislocation 15 history of psoriasis and rosacea 16 history of varicose veins 17 history of seizure disorders 18 history of hemorrhagic cystitis Plan lactated Ringer infusion @ 80 mL an hour Keep the Carbone catheter in place and monitor the urine output Continue cefepime and Flagyl as broad-spectrum antibiotic coverage Dilaudid for pain control , can be transitioned to a Dilaudid DIRECTOR TRANSLATION IS Lovenox subcu for DVT prophylaxis 40 mg every 24 hours Monitor the output from colostomy advance diet as tolerated encourage use of incentive spirometer try to set that up on a chair if possible Possible transfer to oncology unit at a later stage depending on her progress.
--- NOTE | 2020-08-26 10:50 | P.PN ---
Subjective Patient is seen in follow for acute kidney injury. Renal function better. Minimal output from the colostomy. Maintained on IV fluids. Nonoliguric. Vital signs are stable. General: The patient appeared well nourished and normally developed. HEENT: Head exam is unremarkable. Neck is without jugular venous distension. LUNGS: Breath sounds decreased. HEART: Tachycardic. ABDOMEN: Soft, no distention. EXTREMITITES: No edema. Objective - Vital Signs Vital signs: Vital Signs Temp 98.9 F 08/26/20 08:00 Pulse 112 H 08/26/20 10:00 Resp 22 08/26/20 10:00 BP 137/78 08/26/20 10:00 Pulse Ox 91 L 08/26/20 10:00 Intake & Output 08/25/20 08/26/20 08/26/20 18:59 06:59 18:59 Intake Total 1875 1300 500 Output Total 1285 1150 241 Balance 590 150 259 Weight 94.1 kg Intake: IV 1675 1300 500 Cefepime 2 gm In Sodium 100 100 Chloride 0.9% 100 ml @ 200 mls/hr IVPB Q12H [facility] Rx#:[id number] Lactated Ringers 1,000 ml 1375 1300 300 @ 80 mls/hr IV .[id number] [facility] Rx#:[id number] metroNIDAZOLE-NS PMX 500 200 100 mg In Saline 1 100ml.bag @ 100 mls/hr IVPB Q8HR [facility] Rx#:[id number] Oral 200 Output: Urine 1285 1150 241 Other: Voiding Method Indwelling Catheter Indwelling Catheter Indwelling Catheter - Labs CBC & Chem 7: 08/26/20 04:35 08/26/20 04:35 Labs: Abnormal Lab Results - Last 24 Hours (Table) 08/26/20 08/26/20 Range/Units 04:35 04:35 WBC 16.9 H (3.8-10.6) k/uL RBC 3.17 L (3.80-5.40) m/uL Hgb 7.9 L (11.4-16.0) gm/dL Hct 25.0 L (34.0-46.0) % MCV 78.7 L (80.0-100.0) fL MCH 24.8 L (25.0-35.0) pg RDW 15.8 H (11.5-15.5) % Neutrophils # 14.6 H (1.3-7.7) k/uL Creatinine 1.05 H (0.52-1.04) mg/dL Calcium 8.3 L (8.4-10.2) mg/dL AST 55 H (14-36) U/L Alkaline Phosphatase 241 H (38-126) U/L Albumin 2.7 L (3.5-5.0) g/dL Microbiology - Last 24 Hours (Table) 08/23/20 20:43 Blood Culture - Preliminary Blood No Growth after 48 hours 08/23/20 13:02 Blood Culture - Preliminary Blood No Growth after 48 hours 08/23/20 13:00 Blood Culture - Preliminary Blood No Growth after 48 hours Assessment and Plan Plan: Assessment: 1. Acute kidney injury secondary to obstructive uropathy status post bilateral ureteral stent placement. Renal function better. Creatinine 1.05 today. 2. Cervical cancer. 3. Rectal mass with bowel obstruction status post diverting colostomy on 08/24/2020. 4. Anemia of chronic illness. Plan: Decrease rate of LR to 75 mL an hour. Diet to be advanced per surgical recommendations. Continue to monitor renal function and urine output.
[2020-08-26] MEDS: HYDROmorphone PCA 10 MG/50 ML BAG IV PRN ×2 (11:36→17:31)
--- NOTE | 2020-08-26 14:03 | P.PN ---
Subjective Progress Note Date: 08/26/20 Sepsis/UTI Locally advanced cervical cancer Bilateral hydronephrosis secondary to urinary obstruction secondary to locally advanced cervical cancer/hemorrhagic cystitis Arin-rectal density/Rectal wall thickening/proctitis 45-year-old female that presents to emergency with abdominal pain. She was recently diagnosed with cervical cancer. She notes that she self catheterizes for urinary retention. She presents emergency with abdominal pain nausea vomiting. She was in bed in pain and was unable to give accurate answers to examination questions. Patient had bilateral ureteral stents placed on 06/02. She denied any chest pain shortness of breath headache fatigue hematochezia melena. White blood cells 15.1, urinalysis: Bloody, red blood cells greater than 182, white blood cells greater than 182. Cefepime and vancomycin ordered. KUB: Nonacute abdomen. The right ureteral stent appears more inferior than last exam. CT of the abdomen and pelvis: There is some minimal reticular nodular infiltrate at the lung bases. Extensive inflammatory changes in the pelvis with perirectal density measuring up to almost 3 cm in thickness. This is worse than last exam. Consider both inflammatory disease and malignancy. There is bilateral moderate hydronephrosis which appears to same or slightly worse than last exam. Stent malfunction is possible. There is increased reticular nodular interstitial infiltrate the lung bases compared to old exam. 08/16/2020 Patient is seen and evaluated at room at bedside; complained of [id number] distress secondary to uncontrolled pain; pain medications have been adjusted by oncology; patient continues to complain of abdominal pain but significantly improved from yesterday; no complaining of nausea vomiting; patient has a Carbone catheter in Vital signs are reviewed temperature of 98.1 with T-max of 102.4, pulse 118, respiration 18 and blood pressure of 104/64 with SpO2 of 93% on 3 L Laboratory review reveals a WBC of 7.2, hemoglobin of 7.5 and platelet count of 186; sodium of 139, potassium 4.5 and B UN/creatinine of 22/1.7; blood culture preliminary report reveals gram-positive bacillary; urine culture is negative so far Patient has been evaluated by oncology and is recommended to proceed with colonoscopy; continue with broad-spectrum IV antibiotic coverage with cefepime, Flagyl and vancomycin; patient will likely need to be treated with chemotherapy and radiation therapy for cervical cancer; radiation oncology to see patient and make recommendations Renal function is improving with creatinine down to 1.7 from 1.9 yesterday; we will continue with IV fluid hydration and monitor strict SHIRA's, daily weights, renal function and electrolytes; we will consult nephrology for management of renal function since patient need improved renal function prior to starting chemotherapy 08/17/2020 Patient is complaining of also complaining of hematuria patient's hemoglobin did drop to 6.8 we'll transfuse 1 unit of PRBC transfusion patient leukocytosis improved patient's creatinine is improving and presently 1.2. I spent significant amount of time counseling the patient and also explaining her pain patient will be started on long-acting opiate that is fentanyl patch and will continue with [place] as needed as well as morphine as needed but patient doesn't want morphine for pain. sodium to prophylaxis will be discontinued. Aft er the chest x-ray unfortunately I am unable to view the images but was read as previously scheduled disease cannot be ruled out patient is wheezing on exam although patient is apparently ALLERGIC to steroids because of which are just started on inhalational treatments titrating well at 98% on 4 L of oxygen. Patient is not tachycardic anymore. 08/18/2020 Patient is seen in follow-up continues to have multiple complaints of pain and is extremely tearful of her current situation. Patient has had Carbone catheter removed and states she voided and will continue straight catheter if unable to empty the bladder. Urology has evaluated the patient. Multiple medical consultations including surgery, oncology, nephrology, radiation oncology, and infectious disease following. is continued on IV antibiotics in the form of a for pain and Flagyl and will continue at this time. Repeat urine cultures and blood cultures have remained negative. Patient's hemoglobin is 9.2 today status post 1 unit of PRBCs yesterday, white blood count is 10.4, sodium is 137 with a potassium of 4.5. Current creatinine slightly worsened at 1.49 and nephrology is following. Continue with IV fluids at this time. And will repeat labs. Patient continues to have constipation and will continue with lactulose and Colace. Patient is scheduled tentatively to have an EGD and colonoscopy on and will likely start the bowel prep tomorrow. Patient continues to have severe pain and has multiple narcotic medications on board and will discontinue 2 mg of Dilaudid every 3 hours at this time. Patient does have MS Contin and fentanyl on board as well and oncology is following. 08/19/2020 Patient is seen in follow-up continues to be in pain stating "everywhere". Patient continues to have rectal tenderness and fecal incontinence and is currently wearing a brief. plans are for EGD colonoscopy with surgery tomorrow and bowel prep will start today. Patient is having loose gelatinous beard-colored loose stool and will obtain C. diff specimen. Patient's white count is slightly elevated at 11.99, hemoglobin is 8.6 with no active bleeding noted, sodium 137, potassium 4.1, creatinine 1.3. Patient is maintained on IV hydration and will continue. Nephrology following. Patient underwent abdominal series x-ray yesterday showing a kinking of the right ureteral stent with nonobstructive bowel gas pattern in no acute cardiopulmonary abnormalities. Patient also had a lumbar x-ray as she had recently fallen prior to admission showing mild spondylosis without acute osseous abnormality with no fractures or subluxations noted. Patient continues to refuse Carbone catheter stating it was causing immen se pain and not tolerating straight catheterization per nursing staff. Urology is following. 08/20/2020 Patient is seen this morning continues to be tearful and out of sorts and having difficulty with urination. Patient is supposed to be using straight catheter and self catheterization although states she was never educated on this and is having difficulties. Urology has educated the patient and nursing staff will continue to attempt to educate. Patient was started on the bowel prep yesterday and apparently throughout the night did not continue and states she was not told to do so in the EGD/colonoscopy is being rescheduled for tomorrow morning. Patient will continue on clear liquids and continue with the bowel prep and be nothing by mouth at midnight. Multiple medical consultations following. Patient is maintained on IV antibiotics and will continue. Patient is afebrile although white blood count is on an upward trend today at 17.2 and hemoglobin is stable at 9.3 with no active bleeding noted. Creatinine slightly elevated at 1.37 and will repeat labs in continue to monitor. Patient continues on 4 L of oxygen with a 99% oxygen saturation and does have breathing treatments ordered but is refusing at this time. Patient does use inhalers in the outpatient setting as needed. 08/21/2020 Patient is seen this morning status post EGD colonoscopy and biopsies were obtained from the EGD along with colonoscopy and a large almost completely obstructing colon mass was noted and plans are for surgical intervention on Monday of a diverting colostomy. Multiple medical consultations following. Creatinine slightly improved at 1.33 today and will discontinue IV fluids, potassium is 3.8, sodium is 142. White blood count trending down at 14.1 and hemoglobin is 8.7 and will continue to monitor with repeat labs in the morning. No active bleeding is noted. Patient continues to require straight catheterization for urinary retention as she is refusing indwelling Carbone [address] ter and needs continuous education on learning how to self catheter and nursing staff continues to work with her and educate her on this process. Patient Is extremely anxious and tearful and psychiatry was consulted. Patient continues on cefepime and Flagyl IV with infectious disease following. 08/22/2020 Patient seen on follow-up, she is resting comfortably, , creatinine stable 1.3 fluids are hep-locked at this time. White count continues to come to 13.4 today. No fever, hemodynamically stable saturating above 90% on 2 L nasal cannula. Receiving antimicrobial therapy with cefepime and Flagyl. 08/23/2020 Patient seen sitting up in wheelchair, in no acute distress. Running low-grade fever this morning 100.1. Is continued on antimicrobial therapy cefepime and Flagyl. Blood pressure stable, she is on 2 L nasal cannula saturating above 90%. Using Dilaudid as needed for pain. She is planned for possible diverting colostomy placement 08/24/2020 Patient has been nothing by mouth since midnight and scheduled for diverting ostomy placement with Dr. Rivera today and will await report. Multiple medical consultations including oncology and infectious disease following. Patient white count today slightly improved at 14.8 and hemoglobin is stable at 8.8 with no active bleeding noted. Sodium noted to be 138 with a potassium of 3.7 and current creatinine is 1.52. Lactic acid has improved at 1.4. 08/25/2020 Patient is currently being monitored in the ICU status post diverting colostomy yesterday for continued close monitoring as she was recently extubated. Patient is currently maintained on 6 L of oxygen via nasal cannula and weaning as tolerated. Patient continues to refuse breathing treatments until seen by a financial internship. Patient is being followed by furniture restorer pulmonary and will discuss with them today. Patient oxygen saturation currently 96%. Blood pressu re stable and patient continues to be tachycardia with low-grade intermittent fevers of 99.9. Patient is continued on fluids along with IV antibiotics in the form of cefepime and Flagyl and will continue. Infectious disease also following. No output noted in the ostomy as of yet. Patient continues to be nothing by mouth per surgery recommendations and has been having occasional ice chips. White blood count today is 18.3, hemoglobin is 8.2, sodium 138, potassium 3.6, creatinine stable 1.31 and nephrology is following. 08/26/2020 Patient is seen this morning continues to be in the ICU being closely monitored with the potential being transferred out of the ICU to oncology once a bed is a vailable. [employer]inder following along with multiple medical consultations. Patient continues to be in extreme amounts of pain and soreness status post surgery and stating she is having increased discomfort with the indwelling Carbone catheter. Discussed with the patient about the importance of monitoring intake and output and she is not at the level of capacity to continue self- catheterization and will continue with indwelling Carbone catheter at this time. Instructed and encouraged the patient to continue with the incentive spirometer at least 10 times every hour while awake along with getting up out of the bed today and sitting in the chair. Patient continues to have extreme discomfort in the rectal area making it difficult with position changes and movement and is requesting Dilaudid multiple times and furniture restorer ordering a SCREW MACHINE SETTER pump. Patient continues to fall asleep and is lethargic although easily arousable throughout the exam. Constitutional: Continued fatigue denied any fever. Cardiovascular: denied any chest pain, palpitations Gastrointestinal denied any nausea vomiting, new colostomy with minimal output noted Pulmonary: Reports shortness of breath Neurologic denied any new focal deficits, reports generalized weakness All inpatient medications were reviewed and appropriate changes in these medications as dictated in the interval history and assessment and plan. Objective - Vital Signs Vital signs: Vital Signs Temp 98.9 F 08/26/20 08:00 Pulse 105 H 08/26/20 08:00 Resp 16 08/26/20 09:00 BP 133/81 08/26/20 09:00 Pulse Ox 95 08/26/20 09:00 Intake & Output 08/25/20 08/26/20 08/26/20 18:59 06:59 18:59 Intake Total 1875 1300 300 Output Total 1285 1150 126 Balance 590 150 174 Weight 94.1 kg Intake: IV 1675 1300 300 Cefepime 2 gm In Sodium 100 Chloride 0.9% 100 ml @ 200 mls/hr IVPB Q12H [facility] Rx#:[id number] Lactated Ringers 1,000 ml 1375 1300 200 @ 100 mls/hr IV .Q10H ISABEL Rx#:[id number] metroNIDAZOLE-NS PMX 500 200 100 mg In Saline 1 100ml.bag @ 100 mls/hr IVPB Q8HR [facility]ABEL Rx#:[id number] Oral 200 Output: Urine 1285 1150 126 Other: Voiding Method Indwelling Catheter Indwelling Catheter Indwelling Catheter - Exam GENERAL: The patient is alert and oriented x3, not in any acute distress. Well developed, well nourished. HEENT: Pupils are round and equally reacting to light. EOMI. No scleral icterus. No conjunctival pallor. Normocephalic, atraumatic. No pharyngeal erythema. No thyromegaly. CARDIOVASCULAR: S1 and S2 present. No murmurs, rubs, or gallops. PULMONARY: Diminished breath sounds with some bilateral scattered rhonchi ABDOMEN: Soft, nontender, nondistended, normoactive bowel sounds. No palpable organomegaly. Left side abdomen colostomy noted with minimal serosanguineous fluid noted MUSCULOSKELETAL: No joint swelling or deformity. EXTREMITIES: No cyanosis, clubbing, or pedal edema. NEUROLOGICAL: Gross neurological examination did not reveal any focal deficits. SKIN: No rashes. - Labs CBC & Chem 7: 08/26/20 04:35 08/26/20 04:35 Labs: Abnormal Lab Results - Last 24 Hours (Table) 08/26/20 08/26/20 Range/Units 04:35 04:35 WBC 16.9 H (3.8-10.6) k/uL RBC 3.17 L (3.80-5.40) m/uL Hgb 7.9 L (11.4-16.0) gm/dL Hct 25.0 L (34.0-46.0) % MCV 78.7 L (80.0-100.0) fL MCH 24.8 L (25.0-35.0) pg RDW 15.8 H (11.5-15.5) % Neutrophils # 14.6 H (1.3-7.7) k/uL Creatinine 1.05 H (0.52-1.04) mg/dL Calcium 8.3 L (8.4-10.2) mg/dL AST 55 H (14-36) U/L Alkaline Phosphatase 241 H (38-126) U/L Albumin 2.7 L (3.5-5.0) g/dL Microbiology - Last 24 Hours (Table) 08/23/20 20:43 Blood Culture - Preliminary Blood No Growth after 48 hours 08/23/20 13:02 Blood Culture - Preliminary Blood No Growth after 48 hours 08/23/20 13:00 Blood Culture - Preliminary Blood No Growth after 48 hours Assessment and Plan Assessment: -Abdominal pain with arin-rectal density/thickness, patient has been treated for colitis. CT abdomen reveals inflammatory changes and rectal area; possibly secondary to inflammation versus related to cervical cancer; surgery also foll owing and patient underwent EGD colonoscopy with mild gastritis and large rectal mass almost obstructing noted with multiple biopsies obtained. Patient underwent diverting colostomy with surgery postop day 2 with some serosanguineous drainage noted in the ostomy -Acute hypoxic respiratory failure status post diverting colostomy placement surgery, continue wean FiO2 as tolerated currently on 5 L via nasal cannula, instructed the patient continue with incentive spirometer and getting up out of the bed more often -Status post diverting colostomy postop day #2 -Large rectal mass as noted on colonoscopy, underwent diverting colostomy yesterday and pathology report pending -Urinary obstruction/hydronephrosis; possible stent malfunctioning; urology on board and recommending a double-J catheter in the near future in the outpatient setting. Indwelling Carbone catheter replaced for strict I&O's -Hemorrhagic Cystitis; patient was evaluated by urology and is recommending double-J catheters due to cervical cancer in the outpatient setting; urine culture remains negative -Cervical cancer; oncology following and will need close outpatient follow-up. Patient states her gynecological oncologist is out of [facility] -Acute renal injury/ dehydration; continued on lactated Ringer's status post surgery and nephrology following -Acute blood loss and anemia from possible hematuria, no bleeding noted. hemoglobin is 8.2 -Shortness of breath: Probably secondary to COPD acute exacerbation, currently requiring 6 L of oxygen although weaning as tolerated as she is 96% on 6 L status post extubation for surgery -Pain management: Patient was started on longer acting opiate fentanyl patch along with the [place] and oral morphine for breakthrough pain will try to wean off IV Dilaudid. Oncology managing pain medications. -DVT prophylaxis -GI prophylaxis -Full code Plan: Continue current medications and current IV antibiotic therapy. Patient underwent diverting colostomy with surgery postop day #2 and was placed in the ICU for close monitoring secondary to acute hypoxic respiratory failure and extubated. We'll continue with IV fluids and decreased lactated Ringer's to 75 ML per hour. Nephrology following. will repeat a.m. labs. Multiple medical consultations following. Discussed and again Encouraged incentive spirometer at least 10 times every hour while awake. Patient continues to have extreme discomfort and getting to about 500 on the IS. Also discussed with the patient with nursing staff at the bedside about increasing activity and getting up out of the bed more often. Continue with indwelling Carbone catheter until patient is more mobile and able to continue straight catheterization herself. Ostomy noted with some minimal serosanguineous output. Patient was started on clear liquids. Patient also received a Mediport on the right chest.
--- NOTE | 2020-08-26 14:09 | XR ---
EXAMINATION TYPE: XR chest 1V portable DATE OF EXAM: 08/26/2020 CLINICAL HISTORY: Difficulty breathing progress study. TECHNIQUE: Single AP portable upright view of the chest is obtained. COMPARISON: Chest x-ray from one day earlier and older studies. FINDINGS: Stable Right subclavian Mediport catheter. There is chronic parenchymal changes bilaterally with low lung volumes and bibasilar opacities. The c ardiac silhouette size is stable and measures upper limits of normal. The osseous structures remain intact. IMPRESSION: Low lung volumes with left greater than right bibasilar acute atelectasis and/or infiltr ate redemonstrated. No significant change from most recent x-ray.
--- NOTE | 2020-08-26 17:22 | P.PN ---
Progress Note - Text Progress Note Date: 08/26/20 The patient remains in the ICU. She appears to be in no distress. On exam vital signs are stable. Abdomen is soft incision is clean dry intact. There is some evidence liquid stool in the colostomy. Status post enteral colostomy. Patient history of liquid diet
[2020-08-26 18:02] LABS: Glucose,Whole Blood 154 mg/dL (75-99)
[2020-08-27 00:13] LABS: Glucose,Whole Blood 138 mg/dL (75-99)
[2020-08-27] MEDS: HYDROmorphone 1 MG/ML 1 ML SYRINGE IVP PRN ×3 (02:53→21:51)
[2020-08-27] MEDS: ACETAMINOPHEN TAB 325 MG TAB PO PRN ×2 (04:23→19:58)
[2020-08-27] MEDS: LORazepam 2 MG/ML INJ IV PRN ×2 (04:25→15:30)
[2020-08-27] MEDS: ONDANSETRON 4 MG/2 ML VIAL IVP PRN ×3 (04:35→22:53)
[2020-08-27] MEDS: LACTATED RINGERS 1,000 ML IV SCH ×3 (05:41→19:49)
[2020-08-27 06:03] LABS: Glucose,Whole Blood 131 mg/dL (75-99)
[2020-08-27] MEDS: IPRATROPIUM-ALBUTEROL 3 ML NEB INHALATION SCH ×4 (07:26→20:36)
[2020-08-27] MEDS: FAMOTIDINE 20 MG/2 ML VIAL IV SCH ×2 (08:21→21:50)
[2020-08-27] MEDS: metroNIDAZOLE-NS PMX 500 MG in SALINE 1 100ML.BAG IVPB SCH ×3 (08:21→23:38)
[2020-08-27] MEDS: ENOXAPARIN 40 MG/0.4 ML SYRINGE SQ SCH (08:21)
[2020-08-27 10:16] VITALS: BMI 30.6
[2020-08-27] MEDS: CEFEPIME 2 GM in SODIUM CHLORIDE 0.9% 100 ML IVPB SCH ×2 (10:16→21:51)
--- NOTE | 2020-08-27 10:52 | P.PN ---
Subjective Patient is seen in follow for acute kidney injury. Renal function better - creatinine 1.05 as of yesterday. Minimal output from the colostomy. Maintained on IV fluids. Nonoliguric. Now on full liquid diet. Vital signs are stable. General: The patient appeared well nourished and normally developed. HEENT: Head exam is unremarkable. Neck is without jugular venous distension. LUNGS: Breath sounds decreased. HEART: Tachycardic. ABDOMEN: Soft, no distention. EXTREMITITES: No edema. Objective - Vital Signs Vital signs: Vital Signs Temp 98.2 F 08/27/20 05:36 Pulse 122 H 08/27/20 05:36 Resp 20 08/27/20 01:56 BP 123/80 08/27/20 05:36 Pulse Ox 94 L 08/27/20 07:26 Intake & Output 08/26/20 08/27/20 08/27/20 18:59 06:59 18:59 Intake Total 1080 260 Output Total 753 1200 Balance 327 -940 Weight 94.1 kg Intake: IV 1080 260 Cefepime 2 gm In Sodium 200 100 Chloride 0.9% 100 ml @ 200 mls/hr IVPB Q12H ISABEL Rx#:[id number] Lactated Ringers 1,000 ml 780 160 @ 80 mls/hr IV .[id number] [facility]ABEL Rx#:[id number] metroNIDAZOLE-NS PMX 500 100 mg In Saline 1 100ml.bag @ 100 mls/hr IVPB Q8HR ISABEL Rx#:[id number] Output: Urine 753 1200 Other: Voiding Method Indwelling Catheter Indwelling Catheter - Labs CBC & Chem 7: 08/26/20 04:35 08/26/20 04:35 Labs: Abnormal Lab Results - Last 24 Hours (Table) 08/26/20 08/27/20 08/27/20 Range/Units 18:00 00:11 06:02 POC Glucose (mg/dL) 154 H 138 H 131 H (75-99) mg/dL Microbiology - Last 24 Hours (Table) 08/23/20 20:43 Blood Culture - Preliminary Blood No Growth after 72 hours 08/23/20 13:02 Blood Culture - Preliminary Blood No Growth after 72 hours 08/23/20 13:00 Blood Culture - Preliminary Blood No Growth after 72 hours Assessment and Plan Plan: Assessment: 1. Acute kidney injury secondary to obstructive uropathy status post bilateral ureteral stent placement. Renal function better. Creatinine 1.05 as of yesterday. 2. Cervical cancer. 3. Rectal mass with bowel obstruction status post diverting colostomy on 08/24/2020. 4. Anemia of chronic illness. Plan: Decrease rate of LR to 50 mL an hour. Diet to be advanced per surgical recommendations. Continue to monitor renal function and urine output. Morning labs pending.
--- NOTE | 2020-08-27 11:36 | P.PN ---
Progress Note - Text Progress Note Date: 08/27/20 Interval History: Patient was seen resting in bed and was directable and agreeable to speak with the investigative writer in her room. The patient does admit to elevated anxiety and stress and attributes this to her recent diagnosis of cervical cancer as well as her relationship with her family. Despite this she is not reporting any suicidal or homicidal ideation, intention, and/or plan. She is reporting no auditory or visual hallucinations. She does report feeling tired throughout the day but restless at night. She does admit to irritability and a desire to be "left alone." As per review of Dr Nazario's note on 08/21/2020, the patient has had a long history of benzodiazepine use and like developed a dependence for the medication. She has previously trialed multiple antidepressants and has had issues with "all of them." She is currently not requesting or desiring any medication changes in regards to her mental health. Mental Status Exam: General Appearance: Patient appears to be stated age is somewhat somonolent, but directable, and cooperative. Behavior: Patient is calmly seated without any agitated behavior. Initially standoffish on approach, but gradually warmed up. Psychomotor activity appears normal. Speech: Patient's speech is fluent and nonpressured. Monotone, nonspontaneous. Mood/Affect: Mood is "I just want to be left alone." Affect is irritable. Suicidality/Homicidality: Patient denies having any suicidal or homicidal ideat ion intent or plan. Perceptions: Patient denies any visual hallucinations [and denies any auditory hallucinations Though content/process: There is no evidence of any delusional thought content and thought process is linear and goal-directed. Memory and concentration: AOX3, grossly intact for the purposes of this session Judgment and insight: Fair Vital Signs Temp 98.2 F 08/27/20 05:36 Pulse 122 H 08/27/20 05:36 Resp 20 08/27/20 01:56 BP 123/80 08/27/20 05:36 Pulse Ox 94 L 08/27/20 07:26 Intake & Output 08/26/20 08/27/20 08/27/20 18:59 06:59 18:59 Intake Total 1080 260 Output Total 753 1200 Balance 327 -940 Weight 94.1 kg Intake: IV 1080 260 Cefepime 2 gm In Sodium 200 100 Chloride 0.9% 100 ml @ 200 mls/hr IVPB Q12H [facility] Rx#:[id number] Lactated Ringers 1,000 ml 780 160 @ 80 mls/hr IV .[id number] [facility] Rx#:[id number] metroNIDAZOLE-NS PMX 500 100 mg In Saline 1 100ml.bag @ 100 mls/hr IVPB Q8HR [facility] Rx#:[id number] Output: Urine 753 1200 Other: Voiding Method Indwelling Catheter Indwelling Catheter Assessment -History of Anxiety Disorder with benzodiazepine dependence -Adjustment Disorder -Rule out Cluster B personality traits The patient is a 45-year-old female with significant acute stressors including the recent diagnosis of cervical cancer and ongoing stressors of family issues. She is currently receiving pain management with fentanyl. It is likely her disposition is secondary to an underlying personality disorder exacerbated by ongoing stressors. She does not present with any immediate risk of harm to self or others. Plan: -At this time patient DOES NOT meet criteria for inpatient psychiatric admission. Patient does not present with immediate risk of harm to self or others. She is not actively psychotic and displays an ability to care for herself. -Would recommend the following medication changes/additions: No medication changes at this time. - Medications are not indicated for a personality disorder or adjustment disorder. Supportive psychotherapy and cognitive behavioral therapies are the treatment of choice. -Psychiatry will sign off at this point, please contact with any questions.
[2020-08-27 11:51] LABS: African American GFR (CKD) >90 (>60 ml/min/1.73 sqM); Anion Gap 7 mmol/L; Blood Urea Nitrogen 16 mg/dL (7-17); Calcium 8.4 mg/dL (8.4-10.2); Carbon Dioxide 28 mmol/L (22-30); Chloride 102 mmol/L (98-107); Glucose 119 mg/dL (74-99); Magnesium 1.8 mg/dL (1.6-2.3); Non-African American GFR(CKD) 79 (>60 ml/min/1.73 sqM); Sodium 137 mmol/L (137-145)
[2020-08-27] MEDS: HYDROmorphone 2 MG TAB PO PRN ×2 (12:14→19:58)
[2020-08-27 12:19] LABS: Glucose,Whole Blood 128 mg/dL (75-99)
[2020-08-27 12:24] LABS: Basophils # (A) 0.1 k/uL (0-0.2); Basophils % (A) 0 %; Eosinophils % (A) 0 %; HCT 26.8 % (34.0-46.0); HGB 7.9 gm/dL (11.4-16.0); Hypochromasia Marked; Lymphocytes # (A) 0.7 k/uL (1.0-4.8); Lymphocytes % (A) 6 %; MCH 23.8 pg (25.0-35.0); MCHC 29.6 g/dL (31.0-37.0); MCV 80.5 fL (80.0-100.0); Mean Platelet Volume 8.7; Monocytes # (A) 0.5 k/uL (0-1.0); Monocytes % (A) 4 %; Neutrophils # (A) 10.6 k/uL (1.3-7.7); Neutrophils % (A) 88 %; Platelet Count 165 k/uL (150-450); RBC 3.33 m/uL (3.80-5.40); RDW 15.7 % (11.5-15.5); WBC 12.1 k/uL (3.8-10.6)
--- NOTE | 2020-08-27 12:34 | P.PN ---
Subjective Progress Note Date: 08/27/20 45-year-old female patient who is post diverticular colostomy and insertion of a Mediport. I was asked to evaluate this patient in the recovery as the patient was kept intubated on a mechanical ventilator and anesthesia was quite hesitant to extubate this patient and the patient was kept intubated and the patient was asked to be transferred to the intensive care unit. Still awaiting a bed in the ICU. Currently she is intubated by #7 orotracheal tube. At a time of my arrival, she was assist-control mode at the rate of 14 with a tidal volume of 400 and FiO2 of 100% with a PEEP of 5. The blood gas showed a pH of 7.35 with a pCO2 of 49 and a pO2 of more than 400 and based on that the FiO2 was down to 50%. Her current pulse ox is 97%. She is on propofol which is running at 50 mcg/kg per minute. She is hemodynamically stable. She is a blood pressure 121/75. She is on IV fluids in the form of 0.9 at the rate of KVO and lactated Ringer at the rate of 100 mL an hour. She has adequate urine output. No orogastric tube in place at this point in time. Her abdomen is slightly distended. Colostomy is seen in the left upper quadrant and it's quite viable at this point in time. She has been receiving Dilaudid for pain control. Her postop chest x-ray showed adequate positioning of the ET tube. The patient has a Mediport in a good location. She also has developed some atelectatic bray ges/infiltrate in the right lung base which are obviously new finding compared to the earlier chest x-ray. White cell count from this morning's of 14.8 with a hemoglobin of 8.8. The creatinine is up to 1.52 and the patient's electrodes are all within normal limits. Most recent urine cultures been negative. She has multiple ALLERGIES. She is currently on IV cefepime and Flagyl as empiric antibiotic coverage. 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 The patient initially presented to us with abdominal pain. She does have chronic urinary retention and the patient undergoes self-catheterization. She has also bilateral ureteral stents that were placed on 06/25/2020. The patient has moderate hydronephrosis of the kidneys bilaterally. The patient also had bowel obstruction and a colonoscopy was done by general surgery that showed an obstructive mass at the level of the anal verge and for that reason the recommendation was to proceed with diverticulitis colostomy.. Note that the patient was found to have an obstructing rectal mass at the level of the anal verge. 08/25/2020, the patient is in the intensive care unit. She is currently extubated on 4 L of oxygen by nasal cannula. I extubated yesterday in the recovery room. She did very well. She was given IV fluids. Her sinus tachycardia improved and currently her heart rate is somewhere between 100-110, sinus rhythm. She is still having diffuse abdominal discomfort and pain. She is on Dilaudid for pain control. She has some sluggish bowel sounds. The colostomy site is viable yet nonfunctional yet. There is no output is emanating in the colostomy bag. She is on lactated Ringer at the rate of 150 mL an hour. Her chest x-ray showing some limited left basilar atelectasis. White cell count of 18.3 with hemoglobin of 8.2. Creatinine stable at 1.3 and the rest of the electrodes are all within normal limits. The patient remains on IV cefepime as an empiric antibiotic coverage in combination with Flagyl. Blood cultures of been negative. 08/26/2020, patient for a follow-up. The patient remains extubated and she is awake and alert and she is postop day #2. She is currently on 5 L of oxygen by nasal cannula. She is using incentive spirometer and she is pulling approximately 500 mL. No signs of any respiratory distress. The chest x-ray from yesterday showed some atelectatic changes in the lung bases. Otherwise, no significant cough sputum production. No signs of any respiratory distress. The patient is having some bowel sounds. She was given clear liquids and she has some liquid and magnesium accumulating in the stoma. Her stoma is viable and there is also some functionality. No abdominal distention. No emesis. She remains in some mild degree of sinus tachycardia. She is receiving Dilaudid for pain control. She has received already 1 mg of Dilaudid every 3 hours and 0.5 mg every 1 hour. She was also started on a fentanyl patch 50 g every 72 hours. Antibiotic coverage is with a combination of cefepime and Flagyl. WBC count of 16.9 and the patient symptoms at 7.9. Electrolytes are all within normal limits. Renal function is improving and creatinine is down to 1.05. LFTs are showing an AST of 55, ALT of 18 with alkaline phosphatase of 241. The patient has not ambulated yet. We are going to try to at least get up on a chair for today. She is quite debilitated following her surgery. Patient is seen today 08/27/2020 in follow-up on the regular medical floor. Postoperative day #3. He is currently sitting up in bed. Awake and alert. Maintaining O2 saturations in the 90s on 5 L/m per nasal cannula. She's a febrile. Slightly tachycardic. Chest x-ray showing low lung volumes with left greater than right bibasilar acute atelectasis/infiltrate. No change compared to previous. Needs increased encouragement regarding the use of the incentive spirometer and cough and deep breathing exercises. She is status post 1 unit of packed red blood cells this admission. Current hemoglobin 7.9. Follow-up blood cultures reveal no growth. Urine culture reveals no growth. White count 12.1. Hemoglobin 7.9. Sodium 137. Potassium 4.0. Creatinine 0.89. She remains on cefepime, Flagyl. Passing flatus via the colostomy. Objective - Vital Signs Vital signs: Vital Signs Temp 98.2 F 08/27/20 05:36 Pulse 122 H 08/27/20 05:36 Resp 20 08/27/20 01:56 BP 123/80 08/27/20 05:36 Pulse Ox 94 L 08/27/20 07:26 Intake & Output 08/26/20 08/27/20 08/27/20 18:59 06:59 18:59 Intake Total 1080 260 Output Total 753 1200 Balance 327 -940 Weight 94.1 kg Intake: IV 1080 260 Cefepime 2 gm In Sodium 200 100 Chloride 0.9% 100 ml @ 200 mls/hr IVPB Q12H [facility] Rx#:[id number] Lactated Ringers 1,000 ml 780 160 @ 80 mls/hr IV .[id number] [facility] Rx#:[id number] metroNIDAZOLE-NS PMX 500 100 mg In Saline 1 100ml.bag @ 100 mls/hr IVPB Q8HR [facility] Rx#:[id number] Output: Urine 753 1200 Other: Voiding Method Indwelling Catheter Indwelling Catheter Indwelling Catheter - Exam 45-year-old female patient, currently awake, alert, comfortable, on 5 L 02 NC Head exam was generally normal. There was no scleral icterus or corneal arcus. Mucous membranes were moist. Neck was supple and without jugular venous distension, thyromegaly, or carotid bruits. Carotids were easily palpable bilaterally. There was no adenopathy. Lungs sounds are diminished bilaterally, crackles in the bilateral bases. Cardiac exam revealed the PMI to be normally situated and sized. The rhythm was regular and no extrasystoles were noted during several minutes of auscultation. The first and second heart sounds were normal and physiologic splitting of the second heart sound was noted. There were no murmurs, rubs, clicks, or gallops. Abdomen is soft and the patient has minimal bowel sounds. She has diabetic col ostomy in the left upper quadrant. The colostomy site is viable anything. No direct tenderness. No rebound tenderness. No guarding. Examination of the extremities revealed easily palpable radial, femoral and pedal pulses. There was no cyanosis, clubbing or edema. Examination of the skin revealed no evidence of significant rashes, suspicious appearing nevi or other concerning lesions. Neurologically, the patient does not have any focal neurological deficit. Cranial nerves are essentially intact. She is awake and alert. - Labs CBC & Chem 7: 08/27/20 11:08 08/27/20 11:08 Labs: Abnormal Lab Results - Last 24 Hours (Table) 08/26/20 08/27/20 08/27/20 Range/Units 18:00 00:11 06:02 WBC (3.8-10.6) k/uL RBC (3.80-5.40) m/uL Hgb (11.4-16.0) gm/dL Hct (34.0-46.0) % MCH (25.0-35.0) pg MCHC (31.0-37.0) g/dL RDW (11.5-15.5) % Neutrophils # (1.3-7.7) k/uL Lymphocytes # (1.0-4.8) k/uL Glucose (74-99) mg/dL POC Glucose (mg/dL) 154 H 138 H 131 H (75-99) mg/dL 08/27/20 08/27/20 08/27/20 Range/Units 11:08 11:08 12:18 WBC 12.1 H (3.8-10.6) k/uL RBC 3.33 L (3.80-5.40) m/uL Hgb 7.9 L (11.4-16.0) gm/dL Hct 26.8 L (34.0-46.0) % MCH 23.8 L (25.0-35.0) pg MCHC 29.6 L (31.0-37.0) g/dL RDW 15.7 H (11.5-15.5) % Neutrophils # 10.6 H (1.3-7.7) k/uL Lymphocytes # 0.7 L (1.0-4.8) k/uL Glucose 119 H (74-99) mg/dL POC Glucose (mg/dL) 128 H (75-99) mg/dL Microbiology - Last 24 Hours (Table) 08/23/20 20:43 Blood Culture - Preliminary Blood No Growth after 72 hours 08/23/20 13:02 Blood Culture - Preliminary Blood No Growth after 72 hours 08/23/20 13:00 Blood Culture - Preliminary Blood No Growth after 72 hours Assessment and Plan Assessment: 1 Acute hypoxic respiratory failure following bowel surgery which involved diverting colostomy. 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 Biopsies revealed invasive poorly differentiated squamous cell carcinoma 4 obstructive uropathy with bilateral hydronephrosis post-insertion of double-J stent. 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 Mares Pathology, labs reviewed, hemoglobin stable Remains on cefepime and Flagyl Titrate the FiO2 as tolerated Increase her activity as tolerated Adequate pain control We will continue to follow I, the cosigning physician, performed a history & physical examination of the patient. Lungs sounds with crackles in the bilateral posterior bases. Maintaining good O2 saturations in the 90s on 5 L/m per nasal cannula. I dis cussed the assessment and plan of care with my nurse practitioner, Jody Garcia. I attest to the above note as dictated by her.
--- NOTE | 2020-08-27 12:55 | P.PN ---
Progress Note - Text Progress Note Date: 08/27/20 Patient remained stable. She is of minimal output through her colostomy. She has some incisional pain. On exam vital signs are stable. Abdomen is soft. Stoma is viable. Metastatic cervical cancer. Patient will continue receive supportive care.
[2020-08-27] MEDS: MAGNESIUM SULFATE-D5W PMX 1 GM in DEXTROSE/WATER 1 100ML.BAG IVPB SCH ×2 (13:01→14:08)
--- NOTE | 2020-08-27 13:32 | P.PN ---
Subjective Progress Note Date: 08/27/20 Sepsis/UTI Locally advanced cervical cancer Bilateral hydronephrosis secondary to urinary obstruction secondary to locally advanced cervical cancer/hemorrhagic cystitis Arin-rectal density/Rectal wall thickening/proctitis 45-year-old female that presents to emergency with abdominal pain. She was recently diagnosed with cervical cancer. She notes that she self catheterizes for urinary retention. She presents emergency with abdominal pain nausea vomiting. She was in bed in pain and was unable to give accurate answers to examination questions. Patient had bilateral ureteral stents placed on 06/02. She denied any chest pain shortness of breath headache fatigue hematochezia melena. White blood cells 15.1, urinalysis: Bloody, red blood cells greater than 182, white blood cells greater than 182. Cefepime and vancomycin ordered. KUB: Nonacute abdomen. The right ureteral stent appears more inferior than last exam. CT of the abdomen and pelvis: There is some minimal reticular nodular infiltrate at the lung bases. Extensive inflammatory changes in the pelvis with perirectal density measuring up to almost 3 cm in thickness. This is worse than last exam. Consider both inflammatory disease and malignancy. There is bilateral moderate hydronephrosis which appears to same or slightly worse than last exam. Stent malfunction is possible. There is increased reticular nodular interstitial infiltrate the lung bases compared to old exam. 08/16/2020 Patient is seen and evaluated at room at bedside; complained of [id number] distress secondary to uncontrolled pain; pain medications have been adjusted by oncology; patient continues to complain of abdominal pain but significantly improved from yesterday; no complaining of nausea vomiting; patient has a Carbone catheter in Vital signs are reviewed temperature of 98.1 with T-max of 102.4, pulse 118, respiration 18 and blood pressure of 104/64 with SpO2 of 93% on 3 L Laboratory review reveals a WBC of 7.2, hemoglobin of 7.5 and platelet count of 186; sodium of 139, potassium 4.5 and B UN/creatinine of 22/1.7; blood culture preliminary report reveals gram-positive bacillary; urine culture is negative so far Patient has been evaluated by oncology and is recommended to proceed with colonoscopy; continue with broad-spectrum IV antibiotic coverage with cefepime, Flagyl and vancomycin; patient will likely need to be treated with chemotherapy and radiation therapy for cervical cancer; radiation oncology to see patient and make recommendations Renal function is improving with creatinine down to 1.7 from 1.9 yesterday; we will continue with IV fluid hydration and monitor strict SHIRA's, daily weights, renal function and electrolytes; we will consult nephrology for management of renal function since patient need improved renal function prior to starting chemotherapy 08/17/2020 Patient is complaining of also complaining of hematuria patient's hemoglobin did drop to 6.8 we'll transfuse 1 unit of PRBC transfusion patient leukocytosis improved patient's creatinine is improving and presently 1.2. I spent significant amount of time counseling the patient and also explaining her pain patient will be started on long-acting opiate that is fentanyl patch and will continue with [place] as needed as well as morphine as needed but patient doesn't want morphine for pain. sodium to prophylaxis will be discontinued. Aft er the chest x-ray unfortunately I am unable to view the images but was read as previously scheduled disease cannot be ruled out patient is wheezing on exam although patient is apparently ALLERGIC to steroids because of which are just started on inhalational treatments titrating well at 98% on 4 L of oxygen. Patient is not tachycardic anymore. 08/18/2020 Patient is seen in follow-up continues to have multiple complaints of pain and is extremely tearful of her current situation. Patient has had Carbone catheter removed and states she voided and will continue straight catheter if unable to empty the bladder. Urology has evaluated the patient. Multiple medical consultations including surgery, oncology, nephrology, radiation oncology, and infectious disease following. is continued on IV antibiotics in the form of a for pain and Flagyl and will continue at this time. Repeat urine cultures and blood cultures have remained negative. Patient's hemoglobin is 9.2 today status post 1 unit of PRBCs yesterday, white blood count is 10.4, sodium is 137 with a potassium of 4.5. Current creatinine slightly worsened at 1.49 and nephrology is following. Continue with IV fluids at this time. And will repeat labs. Patient continues to have constipation and will continue with lactulose and Colace. Patient is scheduled tentatively to have an EGD and colonoscopy on and will likely start the bowel prep tomorrow. Patient continues to have severe pain and has multiple narcotic medications on board and will discontinue 2 mg of Dilaudid every 3 hours at this time. Patient does have MS Contin and fentanyl on board as well and oncology is following. 08/19/2020 Patient is seen in follow-up continues to be in pain stating "everywhere". Patient continues to have rectal tenderness and fecal incontinence and is currently wearing a brief. plans are for EGD colonoscopy with surgery tomorrow and bowel prep will start today. Patient is having loose gelatinous beard-colored loose stool and will obtain C. diff specimen. Patient's white count is slightly elevated at 11.99, hemoglobin is 8.6 with no active bleeding noted, sodium 137, potassium 4.1, creatinine 1.3. Patient is maintained on IV hydration and will continue. Nephrology following. Patient underwent abdominal series x-ray yesterday showing a kinking of the right ureteral stent with nonobstructive bowel gas pattern in no acute cardiopulmonary abnormalities. Patient also had a lumbar x-ray as she had recently fallen prior to admission showing mild spondylosis without acute osseous abnormality with no fractures or subluxations noted. Patient continues to refuse Carbone catheter stating it was causing immen se pain and not tolerating straight catheterization per nursing staff. Urology is following. 08/20/2020 Patient is seen this morning continues to be tearful and out of sorts and having difficulty with urination. Patient is supposed to be using straight catheter and self catheterization although states she was never educated on this and is having difficulties. Urology has educated the patient and nursing staff will continue to attempt to educate. Patient was started on the bowel prep yesterday and apparently throughout the night did not continue and states she was not told to do so in the EGD/colonoscopy is being rescheduled for tomorrow morning. Patient will continue on clear liquids and continue with the bowel prep and be nothing by mouth at midnight. Multiple medical consultations following. Patient is maintained on IV antibiotics and will continue. Patient is afebrile although white blood count is on an upward trend today at 17.2 and hemoglobin is stable at 9.3 with no active bleeding noted. Creatinine slightly elevated at 1.37 and will repeat labs in continue to monitor. Patient continues on 4 L of oxygen with a 99% oxygen saturation and does have breathing treatments ordered but is refusing at this time. Patient does use inhalers in the outpatient setting as needed. 08/21/2020 Patient is seen this morning status post EGD colonoscopy and biopsies were obtained from the EGD along with colonoscopy and a large almost completely obstructing colon mass was noted and plans are for surgical intervention on Monday of a diverting colostomy. Multiple medical consultations following. Creatinine slightly improved at 1.33 today and will discontinue IV fluids, potassium is 3.8, sodium is 142. White blood count trending down at 14.1 and hemoglobin is 8.7 and will continue to monitor with repeat labs in the morning. No active bleeding is noted. Patient continues to require straight catheterization for urinary retention as she is refusing indwelling Carbone [address] and needs continuous education on learning how to self catheter and nursing staff continues to work with her and educate her on this process. Patient Is extremely anxious and tearful and psychiatry was consulted. Patient continues on cefepime and Flagyl IV with infectious disease following. 08/22/2020 Patient seen on follow-up, she is resting comfortably, , creatinine stable 1.3 fluids are hep-locked at this time. White count continues to come to 13.4 today. No fever, hemodynamically stable saturating above 90% on 2 L nasal cannula. Receiving antimicrobial therapy with cefepime and Flagyl. 08/23/2020 Patient seen sitting up in wheelchair, in no acute distress. Running low-grade fever this morning 100.1. Is continued on antimicrobial therapy cefepime and Flagyl. Blood pressure stable, she is on 2 L nasal cannula saturating above 90%. Using Dilaudid as needed for pain. She is planned for possible diverting colostomy placement 08/24/2020 Patient has been nothing by mouth since midnight and scheduled for diverting ostomy placement with Dr. Rivera today and will await report. Multiple medical consultations including oncology and infectious disease following. Patient white count today slightly improved at 14.8 and hemoglobin is stable at 8.8 with no active bleeding noted. Sodium noted to be 138 with a potassium of 3.7 and current creatinine is 1.52. Lactic acid has improved at 1.4. 08/25/2020 Patient is currently being monitored in the ICU status post diverting colostomy yesterday for continued close monitoring as she was recently extubated. Patient is currently maintained on 6 L of oxygen via nasal cannula and weaning as tolerated. Patient continues to refuse breathing treatments until seen by a chief resource officer. Patient is being followed by cardiopulmonary supervisor pulmonary and will discuss with them today. Patient oxygen saturation currently 96%. Blood pressu re stable and patient continues to be tachycardia with low-grade intermittent fevers of 99.9. Patient is continued on fluids along with IV antibiotics in the form of cefepime and Flagyl and will continue. Infectious disease also following. No output noted in the ostomy as of yet. Patient continues to be nothing by mouth per surgery recommendations and has been having occasional ice chips. White blood count today is 18.3, hemoglobin is 8.2, sodium 138, potassium 3.6, creatinine stable 1.31 and nephrology is following. 08/26/2020 Patient is seen this morning continues to be in the ICU being closely monitored with the potential being transferred out of the ICU to oncology once a bed is a vailable. Front Facer following along with multiple medical consultations. Patient continues to be in extreme amounts of pain and soreness status post surgery and stating she is having increased discomfort with the indwelling Carbone catheter. Discussed with the patient about the importance of monitoring intake and output and she is not at the level of capacity to continue self- catheterization and will continue with indwelling Carbone catheter at this time. Instructed and encouraged the patient to continue with the incentive spirometer at least 10 times every hour while awake along with getting up out of the bed today and sitting in the chair. Patient continues to have extreme discomfort in the rectal area making it difficult with position changes and movement and is requesting Dilaudid multiple times and cardiopulmonary supervisor ordering a EMPLOYMENT AGENCY MANAGER pump. Patient continues to fall asleep and is lethargic although easily arousable throughout the exam. 08/27/2020 Patient is seen in follow-up this morning continues to have extreme amounts of pain and was placed on a EMPLOYMENT AGENCY MANAGER pump yesterday although stated she was not receiving adequate pain control and asked to receive IV push Dilaudid and resume other pain medications. Patient will continue on 1 mg of Dilaudid every 6 hours as needed. Patient continues to be on 5 L of oxygen and continues to to states she is short of breath although is needing continued encouragement with incentive spirometer and coughing and deep breathing as she has not been doing so. Patient states she is in too much pain. Patient does have a colostomy with surgery following with gas noted in the ostomy and no stool output as of yet. Patient is on full liquid diet per surgery recommendations and tolerating thus far. Patient remains on IV cefepime and Flagyl with infectious disease following. White blood count trending down at 12.1. Hemoglobin is 7.9, sodium is 137 with a potassium of 4.0 and current creatinine much improved at 0.89. Magnesium is 1.8 today. Blood sugars appear to be well controlled and will continue with current medication regimen. PT/OT to follow. Constitutional: Continued fatigue denied any fever. Cardiovascular: denied any chest pain, palpitations Gastrointestinal denied any nausea vomiting, new colostomy with some gas in the ostomy and no reported stool as of yet Pulmonary: Reports shortness of breath Neurologic denied any new focal deficits, reports generalized weakness All inpatient medications were reviewed and appropriate changes in these medications as dictated in the interval history and assessment and plan. Objective - Vital Signs Vital signs: Vital Signs Temp 98.2 F 08/27/20 05:36 Pulse 122 H 08/27/20 05:36 Resp 20 08/27/20 01:56 BP 123/80 08/27/20 05:36 Pulse Ox 94 L 08/27/20 07:26 Intake & Output 08/26/20 08/27/20 08/27/20 18:59 06:59 18:59 Intake Total 1080 260 Output Total 753 1200 Balance 327 -940 Intake: IV 1080 260 Cefepime 2 gm In Sodium 200 100 Chloride 0.9% 100 ml @ 200 mls/hr IVPB Q12H ISABEL Rx#:[id number] Lactated Ringers 1,000 ml 780 160 @ 80 mls/hr IV .[id number] ISABEL Rx#:[id number] metroNIDAZOLE-NS PMX 500 100 mg In Saline 1 100ml.bag @ 100 mls/hr IVPB Q8HR ISABEL Rx#:[id number] Output: Urine 753 1200 Other: Voiding Method Indwelling Catheter Indwelling Catheter - Exam GENERAL: The patient is alert and oriented x3, not in any acute distress. Well developed, well nourished. HEENT: Pupils are round and equally reacting to light. EOMI. No scleral icterus. No conjunctival pallor. Normocephalic, atraumatic. No pharyngeal erythema. No thyromegaly. CARDIOVASCULAR: S1 and S2 present. No murmurs, rubs, or gallops. PULMONARY: Diminished breath sounds with some bilateral scattered rhonchi ABDOMEN: Soft, nontender, nondistended, normoactive bowel sounds. No palpable organomegaly. Left side abdomen colostomy noted with minimal serosanguineous fluid noted, gas noted as well in the ostomy MUSCULOSKELETAL: No joint swelling or deformity. EXTREMITIES: No cyanosis, clubbing, or pedal edema. NEUROLOGICAL: Gross neurological examination did not reveal any focal deficits. SKIN: No rashes. - Labs CBC & Chem 7: 08/27/20 11:08 08/27/20 11:08 Labs: Abnormal Lab Results - Last 24 Hours (Table) 08/26/20 08/27/20 08/27/20 Range/Units 18:00 00:11 06:02 POC Glucose (mg/dL) 154 H 138 H 131 H (75-99) mg/dL Microbiology - Last 24 Hours (Table) 08/23/20 20:43 Blood Culture - Preliminary Blood No Growth after 72 hours 08/23/20 13:02 Blood Culture - Preliminary Blood No Growth after 72 hours 08/23/20 13:00 Blood Culture - Preliminary Blood No Growth after 72 hours Assessment and Plan Assessment: -Abdominal pain with arin-rectal density/thickness, patient has been treated for colitis. CT abdomen reveals inflammatory changes and rectal area; possibly secondary to inflammation versus related to cervical cancer; surgery also following and patient underwent EGD colonoscopy with mild gastritis and large rectal mass almost obstructing noted with multiple biopsies obtained. Patient underwent diverting colostomy with surgery postop day 3 with some serosangu ineous drainage noted in the ostomy along with gas and diet has been advanced and tolerating thus far. 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 Patient did receive a Mediport during surgery of the ostomy -Urinary obstruction/hydronephrosis; possible stent malfunctioning; urology on board and recommending a double-J catheter in the near future in the outpatient setting. Indwelling Carbone catheter replaced for strict I&O's -Hemorrhagic Cystitis; patient was evaluated by urology and is recommending double-J catheters due to cervical cancer in the outpatient setting; urine culture remains negative -Cervical cancer; oncology following and will need close outpatient follow-up. Patient states her gynecological oncologist is out of [facility] -Acute renal injury/ dehydration; continued on lactated Ringer's status post surgery and nephrology following -Acute blood loss and anemia from possible hematuria, no bleeding noted. hemoglobin is 7.9 -Shortness of breath: Probably secondary to COPD acute exacerbation, currently requiring 5 L of oxygen, continue weaning as tolerated as she is 94% on 5 L status post extubation for surgery -Pain management: Patient was started on longer acting opiate fentanyl patch along with the [place] and oral morphine for breakthrough pain will try to wean off IV Dilaudid. Oncology managing pain medications. -DVT prophylaxis -GI prophylaxis -Full code Plan: Continue current medications and current IV antibiotic therapy. Patient underwent diverting colostomy with surgery postop day #3 and was transferred from the ICU yesterday evening to the oncology unit. Diet has been advanced to full liquids and tolerating thus far with some gas noted in the ostomy. Multiple medical consultations following. Discussed and again Encouraged incentive spirometer at least 10 times every hour while awake. Patient continues to have extreme discomfort and getting to about 500 on the IS. Also discussed with the patient about increasing activity and getting up out of the bed more often. Continue with indwelling Carbone catheter until patient is more mobile and able to continue straight catheterization herself. Ostomy noted with some minimal serosanguineous output along with gas. Patient diet advanced to full liquids. Patient also received a Mediport on the right chest. Pathology report revealed invasive poorly differentiated squamous cell carcinoma from the rectal biopsy. Oncology is following.
--- NOTE | 2020-08-27 15:29 | PN ---
PROGRESS NOTE DATE OF SERVICE: 08/27/2020 REASON FOR FOLLOWUP: Complicated UTI and proctitis. INTERVAL HISTORY: The patient is afebrile. The patient is breathing comfortably, down to 5 L. Denies having any chest pain. Occasional cough. Still complaining of abdominal pain, but no worsening. No vomiting. PHYSICAL EXAMINATION: Blood pressure 123/80 with a pulse of 100, temperature 98.2. She is 92% on 5 L nasal cannula. General description is a middle-aged female lying in bed in no distress. RESPIRATORY SYSTEM: Unlabored breathing, clear to auscultation anteriorly. HEART: S1, S2. Regular rate and rhythm. ABDOMEN: Soft, nondistended. No guarding or rigidity. LABS: White count 12.1, BUN of 16, creatinine 0.89. Blood culture has been negative. DIAGNOSTIC IMPRESSION AND PLAN: Patient with a complicated urinary tract infection in this patient who did have metastatic cervical cancer with obstructive rectal tumor status post diverting colostomy. Culture so far negative. Patient is covered with cefepime, Flagyl to continue while waiting for condition to stabilize. Monitor clinical course closely. MMODL / IJN: [id number] /
[2020-08-27 17:51] LABS: Glucose,Whole Blood 134 mg/dL (75-99)
--- NOTE | 2020-08-27 19:33 | P.PN ---
Subjective Progress Note Date: 08/27/20 Principal diagnosis: Cervical Cancer When first assessing patient today she was alert, irritated and stated she was in pain, however after they gave her antiemetic she was lethargic and sleeping. Apparently refused to get out of bed due to feeling too sleepy and too much pain, but there are times her respirations are slow and/or shallow and she is difficult to arouse. It is unknown if this is related to a psychiatric defense versus physiologic. Long discussion on need to move and take deep breaths. I have added back po dilaudid and discussed utilizing prior to IV, we will decrease fentanyl patch and see if this will help her motivation. Await CBC and replace iron PRBC prn. Objective - Vital Signs Vital signs: Vital Signs Temp 98.2 F 08/27/20 05:36 Pulse 122 H 08/27/20 05:36 Resp 20 08/27/20 01:56 BP 123/80 08/27/20 05:36 Pulse Ox 94 L 08/27/20 07:26 Intake & Output 08/26/20 08/27/20 08/27/20 18:59 06:59 18:59 Intake Total 1080 260 Output Total 753 1200 Balance 327 -940 Weight 94.1 kg Intake: IV 1080 260 Cefepime 2 gm In Sodium 200 100 Chloride 0.9% 100 ml @ 200 mls/hr IVPB Q12H [facility] Rx#:[id number] Lactated Ringers 1,000 ml 780 160 @ 80 mls/hr IV .[id number] [facility] Rx#:[id number] metroNIDAZOLE-NS PMX 500 100 mg In Saline 1 100ml.bag @ 100 mls/hr IVPB Q8HR [facility] Rx#:[id number] Output: Urine 753 1200 Other: Voiding Method Indwelling Catheter Indwelling Catheter Indwelling Catheter - Exam - Constitutional General appearance: no acute distress, pale, shalloww breathing, diaphoretic - EENT Eyes: edentulous, PERRLA ENT: hard of hearing - Neck Neck: no lymphadenopathy - Respiratory Respiratory: bilateral: CTA - Cardiovascular Rhythm: regular - Gastrointestinal General gastrointestinaltenderness, Ostomy small amount clear yellow liquid - Integumentary Integumentary: pale, no rash - Neurologic Neurologic: CNII-XII intact - Musculoskeletal Musculoskeletal: strength equal bilaterally - Psychiatric Psychiatric: A&O x's 3, inappropriate affect, lethargic, extremly anxious - Labs CBC & Chem 7: 08/27/20 11:08 08/27/20 11:08 Labs: Abnormal Lab Results - Last 24 Hours (Table) 08/26/20 08/27/20 08/27/20 Range/Units 18:00 00:11 06:02 Glucose (74-99) mg/dL POC Glucose (mg/dL) 154 H 138 H 131 H (75-99) mg/dL 08/27/20 Range/Units 11:08 Glucose 119 H (74-99) mg/dL POC Glucose (mg/dL) (75-99) mg/dL Microbiology - Last 24 Hours (Table) 08/23/20 20:43 Blood Culture - Preliminary Blood No Growth after 72 hours 08/23/20 13:02 Blood Culture - Preliminary Blood No Growth after 72 hours 08/23/20 13:00 Blood Culture - Preliminary Blood No Growth after 72 hours Assessment and Plan Plan: Initial presentation with abdominal pain. Diagnosed with cervical cancer in June. She self catheterizes for urinary retention. Admits to Nausea and vomiting as well, which is improved since admission - Patient had bilateral ureteral stents placed on 06/25/2020. IV Antibiotics Cervical Cancer: Near Obstructing Rectal Mass The right ureteral stent appears more inferior than last exam. CT of the abdomen and pelvis: There is some minimal reticular nodular infiltrate at the lung bases. Extensive inflammatory changes in the pelvis with perirectal density measuring up to almost 3 cm in thickness. This is worse than last exam. Consider both inflammatory disease and malignancy. There is bilateral moderate hydronephrosis which appears to same or slightly worse than last exam. Stent malfunction is possible. There is increased reticular nodular interstitial infiltrate the lung bases compared to old exam. 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 - She has not started treatment Plan: - COntinue to work with therapy, encourage patient to increase activity - Trial decrease fentanyl and add dilaudid, lethargic at times however small line given she is asking for pain meds persistently and states she has no relief - Accusations of staffing which are inaccurate as far as I have witnessed, she refuses to see psych again - Up in chair BID
[2020-08-28] MEDS: HYDROmorphone 2 MG TAB PO PRN ×7 (01:45→21:03)
[2020-08-28] MEDS: HYDROmorphone 1 MG/ML 1 ML SYRINGE IVP PRN ×4 (04:14→22:36)
[2020-08-28 07:34] LABS: Basophils # (A) 0.1 k/uL (0-0.2); Basophils % (A) 1 %; Eosinophils # (A) 0.2 k/uL (0-0.7); Eosinophils % (A) 1 %; HCT 28.8 % (34.0-46.0); HGB 8.4 gm/dL (11.4-16.0); Hypochromasia Marked; Lymphocytes # (A) 0.8 k/uL (1.0-4.8); Lymphocytes % (A) 7 %; MCH 23.9 pg (25.0-35.0); MCHC 29.3 g/dL (31.0-37.0); MCV 81.7 fL (80.0-100.0); Mean Platelet Volume 8.6; Monocytes # (A) 0.5 k/uL (0-1.0); Monocytes % (A) 4 %; Neutrophils % (A) 87 %; Platelet Count 168 k/uL (150-450); RBC 3.53 m/uL (3.80-5.40); RDW 15.6 % (11.5-15.5); WBC 12.6 k/uL (3.8-10.6)
[2020-08-28] MEDS: ENOXAPARIN 40 MG/0.4 ML SYRINGE SQ SCH (07:56)
[2020-08-28] MEDS: metroNIDAZOLE-NS PMX 500 MG in SALINE 1 100ML.BAG IVPB SCH ×2 (07:56→15:59)
[2020-08-28] MEDS: FAMOTIDINE 20 MG/2 ML VIAL IV SCH (07:57)
[2020-08-28] MEDS: IPRATROPIUM-ALBUTEROL 3 ML NEB INHALATION SCH ×4 (08:29→19:50)
[2020-08-28] MEDS: CEFEPIME 2 GM in SODIUM CHLORIDE 0.9% 100 ML IVPB SCH ×2 (09:07→22:36)
--- NOTE | 2020-08-28 09:50 | P.PN ---
Progress Note - Text Progress Note Date: 08/28/20 Patient is clinically unchanged. Her pathology from her colonoscopy biopsy shows evidence of metastatic squamous cell cancer. This is presumably from her cervical cancer. On exam her vital signs are stable. Abdomen soft. Colostomy has a small amount of output. Status post diverting colostomy for obstructing metastatic cervical cancer. Patient will Receive supportive care.
[2020-08-28] MEDS: ACETAMINOPHEN TAB 325 MG TAB PO PRN ×2 (10:03→19:02)
[2020-08-28] MEDS: ONDANSETRON 4 MG/2 ML VIAL IVP PRN ×2 (10:03→19:03)
--- NOTE | 2020-08-28 11:05 | P.PN ---
Subjective Patient is seen in follow for acute kidney injury. Renal function better - creatinine 0.89 as of yesterday. Maintained on IV fluids. Nonoliguric. Oral intake gradually improving. On full liquid diet. Vital signs are stable. General: The patient appeared well nourished and normally developed. HEENT: Head exam is unremarkable. Neck is without jugular venous distension. LUNGS: Breath sounds decreased. HEART: Tachycardic. ABDOMEN: Soft, no distention. EXTREMITITES: No edema. Objective - Vital Signs Vital signs: Vital Signs Temp 98.2 F 08/28/20 05:00 Pulse 117 H 08/28/20 05:00 Resp 18 08/28/20 05:00 BP 114/77 08/28/20 05:00 Pulse Ox 91 L 08/28/20 05:00 Intake & Output 08/27/20 08/28/20 08/28/20 18:59 06:59 18:59 Intake Total 700 Output Total 1800 800 Balance -1100 -800 Weight 94.1 kg Intake: IV 500 Lactated Ringers 1,000 ml 500 @ 50 mls/hr IV .Q20H [facility] Rx#:[id number] Intake, IV Titration 200 Amount metroNIDAZOLE-NS PMX 500 200 mg In Saline 1 100ml.bag @ 100 mls/hr IVPB Q8HR [facility] Rx#:[id number] Output: Urine 1800 800 Other: Voiding Method Indwelling Catheter Indwelling Catheter - Labs CBC & Chem 7: 08/28/20 06:59 08/27/20 11:08 Labs: Abnormal Lab Results - Last 24 Hours (Table) 08/27/20 08/27/20 08/27/20 Range/Units 11:08 11:08 12:18 WBC 12.1 H (3.8-10.6) k/uL RBC 3.33 L (3.80-5.40) m/uL Hgb 7.9 L (11.4-16.0) gm/dL Hct 26.8 L (34.0-46.0) % MCH 23.8 L (25.0-35.0) pg MCHC 29.6 L (31.0-37.0) g/dL RDW 15.7 H (11.5-15.5) % Neutrophils # 10.6 H (1.3-7.7) k/uL Lymphocytes # 0.7 L (1.0-4.8) k/uL D-Dimer (<0.60) mg/L FEU Glucose 119 H (74-99) mg/dL POC Glucose (mg/dL) 128 H (75-99) mg/dL 08/27/20 08/28/20 08/28/20 Range/Units 17:50 06:59 10:06 WBC 12.6 H (3.8-10.6) k/uL RBC 3.53 L (3.80-5.40) m/uL Hgb 8.4 L (11.4-16.0) gm/dL Hct 28.8 L (34.0-46.0) % MCH 23.9 L (25.0-35.0) pg MCHC 29.3 L (31.0-37.0) g/dL RDW 15.6 H (11.5-15.5) % Neutrophils # 11.0 H (1.3-7.7) k/uL Lymphocytes # 0.8 L (1.0-4.8) k/uL D-Dimer 8.88 H (<0.60) mg/L FEU Glucose (74-99) mg/dL POC Glucose (mg/dL) 134 H (75-99) mg/dL Microbiology - Last 24 Hours (Table) 08/23/20 20:43 Blood Culture - Preliminary Blood No Growth after 96 hours 08/23/20 13:00 Blood Culture - Preliminary Blood No Growth after 96 hours 08/23/20 13:02 Blood Culture - Preliminary Blood No Growth after 96 hours Assessment and Plan Plan: Assessment: 1. Acute kidney injury secondary to obstructive uropathy status post bilateral ureteral stent placement. Resolved. Creatinine 0.89 as of yesterday. 2. Cervical cancer. 3. Rectal mass with bowel obstruction status post diverting colostomy on 08/24/2020. 4. Anemia of chronic illness. Plan: Maintain gentle IV hydration. Diet to be advanced per surgical recommendations. Continue to monitor renal function and urine output. Will follow as needed. Please call with any questions or concerns.
[2020-08-28 11:27] LABS: Amorphous Sediment,Urine Rare /hpf; Appearance,Urine Turbid (Clear); Bacteria,Urine Rare /hpf; Bilirubin,Urine Negative (Negative); Blood,Urine Large (Negative); Color,Urine Light Red; Glucose,Urine (UA) Negative (Negative); Ketones,Urine Negative (Negative); Leukocyte Esterase,Urine Large (Negative); Mucus,Urine Many /hpf; Nitrite,Urine Negative (Negative); PH, Urine 7.5 (5.0-8.0); Protein,Urine 2+ (Negative); RBC,Urine >182 /hpf (0-5); Specific Gravity,Urine 1.017 (1.001-1.035); Squamous Epithelial Cell,Urine 4 /hpf (0-4); Urobilinogen,Urine <2.0 mg/dL (<2.0); WBC,Urine >182 /hpf (0-5)
[2020-08-28 11:31] LABS: African American GFR (CKD) 66 (>60 ml/min/1.73 sqM); Anion Gap 8 mmol/L; Blood Urea Nitrogen 22 mg/dL (7-17); Calcium 8.1 mg/dL (8.4-10.2); Carbon Dioxide 26 mmol/L (22-30); Chloride 105 mmol/L (98-107); Glucose 125 mg/dL (74-99); Non-African American GFR(CKD) 57 (>60 ml/min/1.73 sqM); Potassium 3.9 mmol/L (3.5-5.1); Sodium 139 mmol/L (137-145)
--- NOTE | 2020-08-28 11:40 | P.PN ---
Subjective Progress Note Date: 08/28/20 45-year-old female patient who is post diverticular colostomy and insertion of a Mediport. I was asked to evaluate this patient in the recovery as the patient was kept intubated on a mechanical ventilator and anesthesia was quite hesitant to extubate this patient and the patient was kept intubated and the patient was asked to be transferred to the intensive care unit. Still awaiting a bed in the ICU. Currently she is intubated by #7 orotracheal tube. At a time of my arrival, she was assist-control mode at the rate of 14 with a tidal volume of 400 and FiO2 of 100% with a PEEP of 5. The blood gas showed a pH of 7.35 with a pCO2 of 49 and a pO2 of more than 400 and based on that the FiO2 was down to 50%. Her current pulse ox is 97%. She is on propofol which is running at 50 mcg/kg per minute. She is hemodynamically stable. She is a blood pressure 121/75. She is on IV fluids in the form of 0.9 at the rate of KVO and lactated Ringer at the rate of 100 mL an hour. She has adequate urine output. No orogastric tube in place at this point in time. Her abdomen is slightly distended. Colostomy is seen in the left upper quadrant and it's quite viable at this point in time. She has been receiving Dilaudid for pain control. Her postop chest x-ray showed adequate positioning of the ET tube. The patient has a Mediport in a good location. She also has developed some atelectatic bray ges/infiltrate in the right lung base which are obviously new finding compared to the earlier chest x-ray. White cell count from this morning's of 14.8 with a hemoglobin of 8.8. The creatinine is up to 1.52 and the patient's electrodes are all within normal limits. Most recent urine cultures been negative. She has multiple ALLERGIES. She is currently on IV cefepime and Flagyl as empiric antibiotic coverage. 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 The patient initially presented to us with abdominal pain. She does have chronic urinary retention and the patient undergoes self-catheterization. She has also bilateral ureteral stents that were placed on 06/25/2020. The patient has moderate hydronephrosis of the kidneys bilaterally. The patient also had bowel obstruction and a colonoscopy was done by general surgery that showed an obstructive mass at the level of the anal verge and for that reason the recommendation was to proceed with diverticulitis colostomy.. Note that the patient was found to have an obstructing rectal mass at the level of the anal verge. 08/25/2020, the patient is in the intensive care unit. She is currently extubated on 4 L of oxygen by nasal cannula. I extubated yesterday in the recovery room. She did very well. She was given IV fluids. Her sinus tachycardia improved and currently her heart rate is somewhere between 100-110, sinus rhythm. She is still having diffuse abdominal discomfort and pain. She is on Dilaudid for pain control. She has some sluggish bowel sounds. The colostomy site is viable yet nonfunctional yet. There is no output is emanating in the colostomy bag. She is on lactated Ringer at the rate of 150 mL an hour. Her chest x-ray showing some limited left basilar atelectasis. White cell count of 18.3 with hemoglobin of 8.2. Creatinine stable at 1.3 and the rest of the electrodes are all within normal limits. The patient remains on IV cefepime as an empiric antibiotic coverage in combination with Flagyl. Blood cultures of been negative. 08/26/2020, patient for a follow-up. The patient remains extubated and she is awake and alert and she is postop day #2. She is currently on 5 L of oxygen by nasal cannula. She is using incentive spirometer and she is pulling approximately 500 mL. No signs of any respiratory distress. The chest x-ray from yesterday showed some atelectatic changes in the lung bases. Otherwise, no significant cough sputum production. No signs of any respiratory distress. The patient is having some bowel sounds. She was given clear liquids and she has some liquid and magnesium accumulating in the stoma. Her stoma is viable and there is also some functionality. No abdominal distention. No emesis. She remains in some mild degree of sinus tachycardia. She is receiving Dilaudid for pain control. She has received already 1 mg of Dilaudid every 3 hours and 0.5 mg every 1 hour. She was also started on a fentanyl patch 50 g every 72 hours. Antibiotic coverage is with a combination of cefepime and Flagyl. WBC count of 16.9 and the patient symptoms at 7.9. Electrolytes are all within normal limits. Renal function is improving and creatinine is down to 1.05. LFTs are showing an AST of 55, ALT of 18 with alkaline phosphatase of 241. The patient has not ambulated yet. We are going to try to at least get up on a chair for today. She is quite debilitated following her surgery. Patient is seen today 08/27/2020 in follow-up on the regular medical floor. Postoperative day #3. He is currently sitting up in bed. Awake and alert. Maintaining O2 saturations in the 90s on 5 L/m per nasal cannula. She's a febrile. Slightly tachycardic. Chest x-ray showing low lung volumes with left greater than right bibasilar acute atelectasis/infiltrate. No change compared to previous. Needs increased encouragement regarding the use of the incentive spirometer and cough and deep breathing exercises. She is status post 1 unit of packed red blood cells this admission. Current hemoglobin 7.9. Follow-up blood cultures reveal no growth. Urine culture reveals no growth. White count 12.1. Hemoglobin 7.9. Sodium 137. Potassium 4.0. Creatinine 0.89. She remains on cefepime, Flagyl. Passing flatus via the colostomy. The patient is seen today 08/28/2020 in follow-up on the regular medical floor. Postoperative day #4. She is currently resting in bed. Awake and alert. She has been quite uncooperative today. She's been refusing to get up. She's been refusing to use her incentive spirometer. Refusing breathing treatments. She is more congested. She is currently on 6 L high flow nasal cannula. Blood cultures are revealing no growth. Urine culture no growth. Status post 1 unit of packed red blood cells this admission. Current hemoglobin 8.4. White count 12.6. Lactic acid 1.8. Chest x-ray is pending. D-dimer, ABGs ordered per medicine. She is currently on cefepime and Flagyl. On Lovenox for DVT prophylaxis. She's had ongoing issues with pain control. Currently receiving Dilaudid, fentanyl patch in place. Zofran for nausea. Pathology report suggesting rectal mass biopsy of invasive poorly differentiated squamous cell carcinoma metastatic from cervical cancer. Objective - Vital Signs Vital signs: Vital Signs Temp 98.2 F 08/28/20 05:00 Pulse 107 H 08/28/20 08:00 Resp 22 08/28/20 08:00 BP 114/77 08/28/20 05:00 Pulse Ox 91 L 08/28/20 05:00 Intake & Output 08/27/20 08/28/20 08/28/20 18:59 06:59 18:59 Intake Total 700 Output Total 1800 800 Balance -1100 -800 Weight 94.1 kg Intake: IV 500 Lactated Ringers 1,000 ml 500 @ 50 mls/hr IV .Q20H [facility] Rx#:[id number] Intake, IV Titration 200 Amount metroNIDAZOLE-NS PMX 500 200 mg In Saline 1 100ml.bag @ 100 mls/hr IVPB Q8HR [facility] Rx#:[id number] Output: Urine 1800 800 Other: Voiding Method Indwelling Catheter Indwelling Catheter - Exam Reveals a 45-year-old female patient, currently awake, alert, on 6 L 02 NC Head exam was generally normal. There was no scleral icterus or corneal arcus. Mucous membranes were moist. Neck was supple and without jugular venous distension, thyromegaly, or carotid bruits. Carotids were easily palpable bilaterally. There was no adenopathy. Lungs sounds are diminished bilaterally, bilateral rhonchi, crackles in the bilateral bases. Cardiac exam revealed the PMI to be normally situated and sized. The rhythm was regular and no extrasystoles were noted during several minutes of auscultation. The first and second heart sounds were normal and physiologic splitting of the second heart sound was noted. There were no murmurs, rubs, clicks, or gallops. Abdomen is soft and the patient has minimal bowel sounds. She has diabetic colostomy in the left upper quadrant. The colostomy site is viable and functioning. No direct tenderness. No rebound tenderness. No guarding. Examination of the extremities revealed easily palpable radial, femoral and ped al pulses. There was no cyanosis, clubbing or edema. Examination of the skin revealed no evidence of significant rashes, suspicious appearing nevi or other concerning lesions. Neurologically, the patient does not have any focal neurological deficit. Cranial nerves are essentially intact. She is awake and alert. - Labs CBC & Chem 7: 08/28/20 06:59 08/27/20 11:08 Labs: Abnormal Lab Results - Last 24 Hours (Table) 08/27/20 08/27/20 08/27/20 Range/Units 11:08 11:08 12:18 WBC 12.1 H (3.8-10.6) k/uL RBC 3.33 L (3.80-5.40) m/uL Hgb 7.9 L (11.4-16.0) gm/dL Hct 26.8 L (34.0-46.0) % MCH 23.8 L (25.0-35.0) pg MCHC 29.6 L (31.0-37.0) g/dL RDW 15.7 H (11.5-15.5) % Neutrophils # 10.6 H (1.3-7.7) k/uL Lymphocytes # 0.7 L (1.0-4.8) k/uL D-Dimer (<0.60) mg/L FEU Glucose 119 H (74-99) mg/dL POC Glucose (mg/dL) 128 H (75-99) mg/dL 08/27/20 08/28/20 08/28/20 Range/Units 17:50 06:59 10:06 WBC 12.6 H (3.8-10.6) k/uL RBC 3.53 L (3.80-5.40) m/uL Hgb 8.4 L (11.4-16.0) gm/dL Hct 28.8 L (34.0-46.0) % MCH 23.9 L (25.0-35.0) pg MCHC 29.3 L (31.0-37.0) g/dL RDW 15.6 H (11.5-15.5) % Neutrophils # 11.0 H (1.3-7.7) k/uL Lymphocytes # 0.8 L (1.0-4.8) k/uL D-Dimer 8.88 H (<0.60) mg/L FEU Glucose (74-99) mg/dL POC Glucose (mg/dL) 134 H (75-99) mg/dL Microbiology - Last 24 Hours (Table) 08/23/20 20:43 Blood Culture - Preliminary Blood No Growth after 96 hours 08/23/20 13:00 Blood Culture - Preliminary Blood No Growth after 96 hours 08/23/20 13:02 Blood Culture - Preliminary Blood No Growth after 96 hours Assessment and Plan Assessment: 1 Acute hypoxic respiratory failure following bowel surgery which involved diverting colostomy. She was extubated, currently on 6 L/min per nasal canula 2 stage IIIB/IV squamous cell carcinoma of the cervix 3 rectal mass with secondary bowel obstruction and abdominal pain requiring diverting colostomy. Biopsies revealed invasive poorly differentiated squamous cell carcinoma suspect metastatic from cervical cancer 4 obstructive uropathy with bilateral hydronephrosis post-insertion of double-J stent. 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 Mares She has been uncooperative and refusing breathing treatments Refusing to use incentive spirometer and cough and deep breathing exercises Currently on 6 L nasal cannula Chest x-ray, ABGs, d-dimer pending per medicine Will await results and make further recommendations based on her clinical status I, the cosigning physician, performed a history & physical examination of the patient. Lungs sounds with bilateral scattered rhonchi, crackles in the bilateral posterior bases. Maintaining good O2 saturations in the 90s on 6 L/m per nasal cannula. I discussed the assessment and plan of care with my nurse practitioner, Jody Garcia. I attest to the above note as dictated by her.
[2020-08-28 12:22] LABS: ABG Base Excess 6.2 mmol/L; ABG HCO3 29 mmol/L (21-25); ABG Oxygen Saturation 65.4 % (94-97); ABG PCO2 32 mmHg (35-45); ABG PH 7.55 (7.35-7.45); ABG TCO2 30 mmol/L (19-24); Allen Test Performed? Yes
[2020-08-28 12:38] LABS: ABG PO2 32 mmHg (83-108)
--- NOTE | 2020-08-28 12:44 | XR ---
EXAMINATION TYPE: XR chest 1V portable DATE OF EXAM: 08/28/2020 COMPARISON: 08/26/2020 HISTORY: Fever TECHNIQUE: Single frontal view of the chest is obtained. FINDINGS: Right Mediport catheter with its tip at the cavoatrial junction. Low lung volumes. Heart s ize is mildly enlarged. Patchy bibasilar airspace opacities suggestive of atelectasis or developing p neumonia. Small right pleural effusion. No pneumothorax. IMPRESSION: 1. Mild cardiomegaly. Right Mediport catheter with its tip at the SVC. 2. Bibasilar airspace opacities suggestive of atelectasis or developing pneumonia. Small right pleura l effusion.
[2020-08-28] MEDS: PANTOPRAZOLE 40 MG/10 ML VIAL IVP SCH ×2 (12:52→21:03)
[2020-08-28] MEDS ORDERED: methylPREDNISolone SOD SUCCI 125 MG/2 ML VIAL IV ONE (13:00)
[2020-08-28] MEDS ORDERED: diphenhydrAMINE 50 MG/ML 1 ML VIAL IVP ONE (13:00)
[2020-08-28] MEDS: LORazepam 0.5 MG TAB PO PRN (13:04)
[2020-08-28] MEDS: LACTATED RINGERS 1,000 ML IV SCH (13:05)
--- NOTE | 2020-08-28 14:06 | CT ---
EXAMINATION TYPE: CT angio chest DATE OF EXAM: 08/28/2020 COMPARISON: None HISTORY: elevated d dimer CT DLP: 340.4 mGycm CONTRAST: CT chest with contrast and 3D reconstruction with MIP imaging is performed with IV Contrast, patient injected with 80 mL of Isovue 370. Contrast-enhanced CT of the chest was performed through the course of the pulmonary arteries with alexy g and mediastinal window settings submitted. 3D reconstruction with MIP imaging was also performed. PULMONARY ARTERIES: There are couple tiny filling defects noted within the right upper lobe pulmonary arterial branches in left lower lobe pulmonary arterial branches. Pulmonary embolism is not excluded . No large central component or sagittal component. LUNGS: There are bilateral pleural effusions which appear to be loculated. There are scattered infilt rates noted bilaterally. Basilar atelectatic change noted. MEDIASTINUM: Thoracic aorta is of normal caliber,however, evaluation is limited given timing of the contrast bolus. If there is concern for thoracic aortic pathology consider STEPHANE. Correlate clinicall y . The heart is not enlarged. No evidence for mediastinal mass. No mediastinal lymph nodes greater than 1cm. HILAR STRUCTURES: No evidence for mass. No hilar lymph nodes greater than 1 cm. UPPER ABDOMEN: No significant abnormality is seen. IMPRESSION: 1. There are couple tiny filling defects noted within the right upper lobe pulmonary arterial branch es in left lower lobe pulmonary arterial branches. Pulmonary embolism is not excluded.
[2020-08-28 14:08] LABS: African American GFR (CKD) 57.8 (60.0-200.0); Albumin/Globulin Ratio 0.81 (1.60-3.17); BUN/Creat Ratio 17.69 Ratio (12.00-20.00); Calcium 8.2 mg/dL (8.7-10.3); Globulin 3.7 g/dL (1.6-3.3); Non-African American GFR(CKD) 49.9 (60.0-200.0); Potassium 3.7 mmol/L (3.5-5.5); Total Bilirubin 0.4 mg/dL (0.3-1.2); Total Protein 6.7 g/dL (6.2-8.2)
--- NOTE | 2020-08-28 16:00 | P.PN ---
Subjective Progress Note Date: 08/28/20 Principal diagnosis: cervical cancer - causing rectal / ureter obstructions The patient underwent a diverting colostomy on Monday. She is a bit more alert today during our conversation. She states she feels very weak. Physical therapy recommended she get up to walk across the room and sit in the chair, and she declined to participating she did not think she could tolerate this. She has continued to require relatively high amounts of oxygen. Her d-dimer was found to be elevated, and therefore CTA has been ordered for this afternoon. Her ostomy seems to be functioning. Objective - Vital Signs Vital signs: Vital Signs Temp 99.8 F H 08/28/20 12:48 Pulse 125 H 08/28/20 12:48 Resp 22 08/28/20 12:48 BP 119/79 08/28/20 12:48 Pulse Ox 92 L 08/28/20 12:48 Intake & Output 08/27/20 08/28/20 08/28/20 18:59 06:59 18:59 Intake Total 700 Output Total 1800 800 Balance -1100 -800 Weight 94.1 kg Intake: IV 500 Lactated Ringers 1,000 ml 500 @ 50 mls/hr IV .Q20H ISABEL Rx#:[id number] Intake, IV Titration 200 Amount metroNIDAZOLE-NS PMX 500 200 mg In Saline 1 100ml.bag @ 100 mls/hr IVPB Q8HR ISABEL Rx#:[id number] Output: Urine 1800 800 Other: Voiding Method Indwelling Catheter Indwelling Catheter - Constitutional General appearance: Present: disheveled, mild distress - EENT Eyes: Present: EOMI, PERRLA ENT: Present: hearing grossly normal - Neck Neck: Absent: lymphadenopathy - Respiratory Respiratory: bilateral: diminished - Cardiovascular Rhythm: regular - Gastrointestinal General gastrointestinal: Absent: distended - Integumentary Integumentary: Present: pale - Neurologic Neurologic: Present: CNII-XII intact - Psychiatric Psychiatric: Present: appropriate affect - Labs CBC & Chem 7: 08/28/20 06:59 08/28/20 10:06 Labs: Abnormal Lab Results - Last 24 Hours (Table) 08/27/20 08/28/20 08/28/20 Range/Units 17:50 06:59 06:59 WBC 12.6 H (3.8-10.6) k/uL RBC 3.53 L (3.80-5.40) m/uL Hgb 8.4 L (11.4-16.0) gm/dL Hct 28.8 L (34.0-46.0) % MCH 23.9 L (25.0-35.0) pg MCHC 29.3 L (31.0-37.0) g/dL RDW 15.6 H (11.5-15.5) % Neutrophils # 11.0 H (1.3-7.7) k/uL Lymphocytes # 0.8 L (1.0-4.8) k/uL D-Dimer (<0.60) mg/L FEU ABG pH (7.35-7.45) ABG pCO2 (35-45) mmHg ABG pO2 (83-108) mmHg ABG HCO3 (21-25) mmol/L ABG Total CO2 (19-24) mmol/L ABG O2 Saturation (94-97) % BUN (7-17) mg/dL Creatinine (0.52-1.04) mg/dL Est GFR (CKD-EPI)AfAm 57.8 L (60.0-200.0) Est GFR (CKD-EPI)NonAf 49.9 L (60.0-200.0) Glucose 160 H (70-110) mg/dL POC Glucose (mg/dL) 134 H (75-99) mg/dL Calcium 8.2 L (8.7-10.3) mg/dL Alkaline Phosphatase 533 H (41-126) U/L Albumin 3.00 L (3.80-4.90) g/dL Globulin 3.7 H (1.6-3.3) g/dL Albumin/Globulin Ratio 0.81 L (1.60-3.17) g/dL Urine Appearance (Clear) Urine Protein (Negative) Urine Blood (Negative) Ur Leukocyte Esterase (Negative) Urine RBC (0-5) /hpf Urine WBC (0-5) /hpf Amorphous Sediment (None) /hpf Urine Bacteria (None) /hpf Urine Mucus (None) /hpf 08/28/20 08/28/20 08/28/20 Range/Units 10:06 10:06 10:45 WBC (3.8-10.6) k/uL RBC (3.80-5.40) m/uL Hgb (11.4-16.0) gm/dL Hct (34.0-46.0) % MCH (25.0-35.0) pg MCHC (31.0-37.0) g/dL RDW (11.5-15.5) % Neutrophils # (1.3-7.7) k/uL Lymphocytes # (1.0-4.8) k/uL D-Dimer 8.88 H (<0.60) mg/L FEU ABG pH (7.35-7.45) ABG pCO2 (35-45) mmHg ABG pO2 (83-108) mmHg ABG HCO3 (21-25) mmol/L ABG Total CO2 (19-24) mmol/L ABG O2 Saturation (94-97) % BUN 22 H (7-17) mg/dL Creatinine 1.17 H (0.52-1.04) mg/dL Est GFR (CKD-EPI)AfAm (60.0-200.0) Est GFR (CKD-EPI)NonAf (60.0-200.0) Glucose 125 H (70-110) mg/dL POC Glucose (mg/dL) (75-99) mg/dL Calcium 8.1 L (8.7-10.3) mg/dL Alkaline Phosphatase (41-126) U/L Albumin (3.80-4.90) g/dL Globulin (1.6-3.3) g/dL Albumin/Globulin Ratio (1.60-3.17) g/dL Urine Appearance Turbid H (Clear) Urine Protein 2+ H (Negative) Urine Blood Large H (Negative) Ur Leukocyte Esterase Large H (Negative) Urine RBC >182 H (0-5) /hpf Urine WBC >182 H (0-5) /hpf Amorphous Sediment Rare H (None) /hpf Urine Bacteria Rare H (None) /hpf Urine Mucus Many H (None) /hpf 08/28/20 Range/Units 12:17 WBC (3.8-10.6) k/uL RBC (3.80-5.40) m/uL Hgb (11.4-16.0) gm/dL Hct (34.0-46.0) % MCH (25.0-35.0) pg MCHC (31.0-37.0) g/dL RDW (11.5-15.5) % Neutrophils # (1.3-7.7) k/uL Lymphocytes # (1.0-4.8) k/uL D-Dimer (<0.60) mg/L FEU ABG pH 7.55 H (7.35-7.45) ABG pCO2 32 L (35-45) mmHg ABG pO2 32 L* (83-108) mmHg ABG HCO3 29 H (21-25) mmol/L ABG Total CO2 30 H (19-24) mmol/L ABG O2 Saturation 65.4 L (94-97) % BUN (7-17) mg/dL Creatinine (0.52-1.04) mg/dL Est GFR (CKD-EPI)AfAm (60.0-200.0) Est GFR (CKD-EPI)NonAf (60.0-200.0) Glucose (70-110) mg/dL POC Glucose (mg/dL) (75-99) mg/dL Calcium (8.7-10.3) mg/dL Alkaline Phosphatase (41-126) U/L Albumin (3.80-4.90) g/dL Globulin (1.6-3.3) g/dL Albumin/Globulin Ratio (1.60-3.17) g/dL Urine Appearance (Clear) Urine Protein (Negative) Urine Blood (Negative) Ur Leukocyte Esterase (Negative) Urine RBC (0-5) /hpf Urine WBC (0-5) /hpf Amorphous Sediment (None) /hpf Urine Bacteria (None) /hpf Urine Mucus (None) /hpf Microbiology - Last 24 Hours (Table) 08/23/20 13:00 Blood Culture - Preliminary Blood No Growth after 120 hours 08/23/20 13:02 Blood Culture - Preliminary Blood No Growth after 120 hours 08/28/20 10:45 Urine Culture - Preliminary Urine,Voided 08/23/20 20:43 Blood Culture - Preliminary Blood No Growth after 96 hours Assessment and Plan Assessment: Patient is a 45-year-old female with a 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 She is status post diverting ostomy on Monday, and appears to be recovering slowly from surgery. Plan: 1. Dyspnea: As noted above, the patient has continued to require 5-6 L of oxygen and does not seem to be improving. This could be related somewhat to atelectasis, based on recent chest x-rays. However, in light of her elevated d- dimer, we are waiting for the results from her chest CTA and bilateral lower extremity ultrasound. 2. Cervical cancer: As noted previously, the patient would be recommended concurrent chemoradiation as definitive treatment for her disease. During this hospital stay, the patient has not shown good performance status, and does not appear to be improving much. I explained to the patient that ideally she would work with physical therapy, and be able to go home with home care so as not potentially delay the initiation of her treatment. The patient needed at least 7-10 days after her surgery to heal prior to the initiation of radiation. We will reevaluate the patient this coming week. Time with Patient: Less than 30
--- NOTE | 2020-08-28 16:01 | US ---
EXAMINATION TYPE: US venous doppler duplex LE DATE OF EXAM: 08/28/2020 3:10 PM COMPARISON: NONE CLINICAL HISTORY: Positive d-dimer, bilateral leg pain. SIDE PERFORMED: Bilateral TECHNIQUE: The lower extremity deep venous system is examined utilizing real time linear array sonog chichi with graded compression, doppler sonography and color-flow sonography. VESSELS IMAGED: Common Femoral Vein Deep Femoral Vein Greater Saphenous Vein * Femoral Vein Popliteal Vein Small Saphenous Vein * Proximal Calf Veins (* superficial vessels) There is normal flow, compressibility, vascular waveforms Right Leg: Negative for DVT Left Leg: Negative for DVT IMPRESSION: No evident deep venous thrombosis at or central to the knees, follow-up as indicated
[2020-08-28] MEDS ORDERED: HEPARIN SODIUM 1,000 UN/ML (10ML VL) IV PRN (16:30)
--- NOTE | 2020-08-28 16:30 | P.PN ---
Subjective Progress Note Date: 08/28/20 Principal diagnosis: Cervical Cancer When reviewing record appears she has been requiring more oxygen and did spike fever yesterday evening 100.7. On assessment she did appear more pale and diaphoretic. Re-Yanes Culture and chest xray ordered, ID is following. CTA was ordered and read was not definitive for Pulmonary Embolism but also not without. I called and discussed with Dr. Arroyo who states he would favor a pulmonary embolism scenario in this picture. Therefore given her clinical picture and the high liklihood of PE will begin anticoagulation. Will need to monitor cbc closely given her anemia. Objective - Vital Signs Vital signs: Vital Signs Temp 98.2 F 08/28/20 05:00 Pulse 117 H 08/28/20 05:00 Resp 18 08/28/20 05:00 BP 114/77 08/28/20 05:00 Pulse Ox 91 L 08/28/20 05:00 Intake & Output 08/27/20 08/28/20 08/28/20 18:59 06:59 18:59 Intake Total 700 Output Total 1800 800 Balance -1100 -800 Weight 94.1 kg Intake: IV 500 Lactated Ringers 1,000 ml 500 @ 50 mls/hr IV .Q20H [facility] Rx#:[id number] Intake, IV Titration 200 Amount metroNIDAZOLE-NS PMX 500 200 mg In Saline 1 100ml.bag @ 100 mls/hr IVPB Q8HR [facility] Rx#:[id number] Output: Urine 1800 800 Other: Voiding Method Indwelling Catheter Indwelling Catheter - Exam - Constitutional General appearance: no acute distress, pale, shalloww breathing, diaphoretic - EENT Eyes: edentulous, PERRLA ENT: hard of hearing - Neck Neck: no lymphadenopathy - Respiratory Respiratory: bilateral: CTA - Cardiovascular Rhythm: regular - Gastrointestinal General gastrointestinaltenderness, Ostomy small amount clear yellow liquid - Integumentary Integumentary: pale, no rash - Neurologic Neurologic: CNII-XII intact - Musculoskeletal Musculoskeletal: strength equal bilaterally - Psychiatric Psychiatric: A&O x's 3, inappropriate affect, lethargic, extremly anxious - Labs CBC & Chem 7: 08/28/20 06:59 08/28/20 10:06 Labs: Abnormal Lab Results - Last 24 Hours (Table) 08/27/20 08/27/20 08/27/20 Range/Units 11:08 11:08 12:18 WBC 12.1 H (3.8-10.6) k/uL RBC 3.33 L (3.80-5.40) m/uL Hgb 7.9 L (11.4-16.0) gm/dL Hct 26.8 L (34.0-46.0) % MCH 23.8 L (25.0-35.0) pg MCHC 29.6 L (31.0-37.0) g/dL RDW 15.7 H (11.5-15.5) % Neutrophils # 10.6 H (1.3-7.7) k/uL Lymphocytes # 0.7 L (1.0-4.8) k/uL Glucose 119 H (74-99) mg/dL POC Glucose (mg/dL) 128 H (75-99) mg/dL 08/27/20 08/28/20 Range/Units 17:50 06:59 WBC 12.6 H (3.8-10.6) k/uL RBC 3.53 L (3.80-5.40) m/uL Hgb 8.4 L (11.4-16.0) gm/dL Hct 28.8 L (34.0-46.0) % MCH 23.9 L (25.0-35.0) pg MCHC 29.3 L (31.0-37.0) g/dL RDW 15.6 H (11.5-15.5) % Neutrophils # 11.0 H (1.3-7.7) k/uL Lymphocytes # 0.8 L (1.0-4.8) k/uL Glucose (74-99) mg/dL POC Glucose (mg/dL) 134 H (75-99) mg/dL Microbiology - Last 24 Hours (Table) 08/23/20 20:43 Blood Culture - Preliminary Blood No Growth after 96 hours 08/23/20 13:00 Blood Culture - Preliminary Blood No Growth after 96 hours 08/23/20 13:02 Blood Culture - Preliminary Blood No Growth after 96 hours Assessment and Plan Plan: Initial presentation with abdominal pain. Diagnosed with cervical cancer in June. She self catheterizes for urinary retention. Admits to Nausea and vomiting as well, which is improved since admission - Patient had bilateral ureteral stents placed on 06/25/2020. IV Antibiotics Cervical Cancer: Near Obstructing Rectal Mass The right ureteral stent appears more inferior than last exam. CT of the abdomen and pelvis: There is some minimal reticular nodular infiltrate at the lung bases. Extensive inflammatory changes in the pelvis with perirectal density measuring up to almost 3 cm in thickness. This is worse than last exam. Consider both inflammatory disease and malignancy. There is bilateral moderate hydronephrosis which appears to same or slightly worse than last exam. Stent malfunction is possible. There is increased reticular nodular interstitial infiltrate the lung bases compared to old exam. 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 - She has not started treatment Plan: CTA - not definitive with or without Pulmonary Embolism, per Dr. Arroyo he would favor PE in this scenario. Will begin heparin drip as she is post operative and hemoglobin labile 7-8. Monitor closely then switch to DOAC. Will plan to repeat CTA wihtin a short follow-up window. Discussed case with Dr. Alfredo as well today Physician Attest: I have completed the full history and physical and agree with above dictation, dictated as a scribe.
[2020-08-28 17:00] LABS: Anisocytosis Slight; Basophils % (A) 0 %; Eosinophils % (A) 0 %; HCT 25.5 % (34.0-46.0); HGB 8.1 gm/dL (11.4-16.0); Hypochromasia Marked; Lymphocytes # (A) 0.4 k/uL (1.0-4.8); Lymphocytes % (A) 4 %; MCH 24.6 pg (25.0-35.0); MCHC 31.6 g/dL (31.0-37.0); MCV 77.9 fL (80.0-100.0); Mean Platelet Volume 9.2; Microcytosis Slight; Monocytes # (A) 0.2 k/uL (0-1.0); Monocytes % (A) 2 %; Neutrophils # (A) 10.4 k/uL (1.3-7.7); Neutrophils % (A) 93 %; Platelet Count 142 k/uL (150-450); RBC 3.28 m/uL (3.80-5.40); WBC 11.2 k/uL (3.8-10.6)
[2020-08-28] MEDS: SODIUM CHLORIDE 0.9% 1,000 ML IV SCH (17:28)
[2020-08-28] MEDS: HEPARIN SOD,PORK IN 0.45% NACL 25,000 UNIT in 0.45% NACL 1 250ML.BAG IV SCH (17:30)
[2020-08-28 17:39] LABS: INR 1.2 (<1.2); Partial Thromboplastin Time 21.5 sec (22.0-30.0); Prothrombin Time 12.1 sec (9.0-12.0)
--- NOTE | 2020-08-28 18:31 | P.PN ---
Subjective Progress Note Date: 08/28/20 Sepsis/UTI Locally advanced cervical cancer Bilateral hydronephrosis secondary to urinary obstruction secondary to locally advanced cervical cancer/hemorrhagic cystitis Arin-rectal density/Rectal wall thickening/proctitis 45-year-old female that presents to emergency with abdominal pain. She was recently diagnosed with cervical cancer. She notes that she self catheterizes for urinary retention. She presents emergency with abdominal pain nausea vomiting. She was in bed in pain and was unable to give accurate answers to examination questions. Patient had bilateral ureteral stents placed on 06/02. She denied any chest pain shortness of breath headache fatigue hematochezia melena. White blood cells 15.1, urinalysis: Bloody, red blood cells greater than 182, white blood cells greater than 182. Cefepime and vancomycin ordered. KUB: Nonacute abdomen. The right ureteral stent appears more inferior than last exam. CT of the abdomen and pelvis: There is some minimal reticular nodular infiltrate at the lung bases. Extensive inflammatory changes in the pelvis with perirectal density measuring up to almost 3 cm in thickness. This is worse than last exam. Consider both inflammatory disease and malignancy. There is bilateral moderate hydronephrosis which appears to same or slightly worse than last exam. Stent malfunction is possible. There is increased reticular nodular interstitial infiltrate the lung bases compared to old exam. 08/16/2020 Patient is seen and evaluated at room at bedside; complained of [id number] distress secondary to uncontrolled pain; pain medications have been adjusted by oncology; patient continues to complain of abdominal pain but significantly improved from yesterday; no complaining of nausea vomiting; patient has a Carbone catheter in Vital signs are reviewed temperature of 98.1 with T-max of 102.4, pulse 118, respiration 18 and blood pressure of 104/64 with SpO2 of 93% on 3 L Laboratory review reveals a WBC of 7.2, hemoglobin of 7.5 and platelet count of 186; sodium of 139, potassium 4.5 and B UN/creatinine of 22/1.7; blood culture preliminary report reveals gram-positive bacillary; urine culture is negative so far Patient has been evaluated by oncology and is recommended to proceed with colonoscopy; continue with broad-spectrum IV antibiotic coverage with cefepime, Flagyl and vancomycin; patient will likely need to be treated with chemotherapy and radiation therapy for cervical cancer; radiation oncology to see patient and make recommendations Renal function is improving with creatinine down to 1.7 from 1.9 yesterday; we will continue with IV fluid hydration and monitor strict SHIRA's, daily weights, renal function and electrolytes; we will consult nephrology for management of renal function since patient need improved renal function prior to starting chemotherapy 08/17/2020 Patient is complaining of also complaining of hematuria patient's hemoglobin did drop to 6.8 we'll transfuse 1 unit of PRBC transfusion patient leukocytosis improved patient's creatinine is improving and presently 1.2. I spent significant amount of time counseling the patient and also explaining her pain patient will be started on long-acting opiate that is fentanyl patch and will continue with [place] as needed as well as morphine as needed but patient doesn't want morphine for pain. sodium to prophylaxis will be discontinued. Aft er the chest x-ray unfortunately I am unable to view the images but was read as previously scheduled disease cannot be ruled out patient is wheezing on exam although patient is apparently ALLERGIC to steroids because of which are just started on inhalational treatments titrating well at 98% on 4 L of oxygen. Patient is not tachycardic anymore. 08/18/2020 Patient is seen in follow-up continues to have multiple complaints of pain and is extremely tearful of her current situation. Patient has had Carbone catheter removed and states she voided and will continue straight catheter if unable to empty the bladder. Urology has evaluated the patient. Multiple medical consultations including surgery, oncology, nephrology, radiation oncology, and infectious disease following. is continued on IV antibiotics in the form of a for pain and Flagyl and will continue at this time. Repeat urine cultures and blood cultures have remained negative. Patient's hemoglobin is 9.2 today status post 1 unit of PRBCs yesterday, white blood count is 10.4, sodium is 137 with a potassium of 4.5. Current creatinine slightly worsened at 1.49 and nephrology is following. Continue with IV fluids at this time. And will repeat labs. Patient continues to have constipation and will continue with lactulose and Colace. Patient is scheduled tentatively to have an EGD and colonoscopy on and will likely start the bowel prep tomorrow. Patient continues to have severe pain and has multiple narcotic medications on board and will discontinue 2 mg of Dilaudid every 3 hours at this time. Patient does have MS Contin and fentanyl on board as well and oncology is following. 08/19/2020 Patient is seen in follow-up continues to be in pain stating "everywhere". Patient continues to have rectal tenderness and fecal incontinence and is currently wearing a brief. plans are for EGD colonoscopy with surgery tomorrow and bowel prep will start today. Patient is having loose gelatinous beard-colored loose stool and will obtain C. diff specimen. Patient's white count is slightly elevated at 11.99, hemoglobin is 8.6 with no active bleeding noted, sodium 137, potassium 4.1, creatinine 1.3. Patient is maintained on IV hydration and will continue. Nephrology following. Patient underwent abdominal series x-ray yesterday showing a kinking of the right ureteral stent with nonobstructive bowel gas pattern in no acute cardiopulmonary abnormalities. Patient also had a lumbar x-ray as she had recently fallen prior to admission showing mild spondylosis without acute osseous abnormality with no fractures or subluxations noted. Patient continues to refuse Carbone catheter stating it was causing immen se pain and not tolerating straight catheterization per nursing staff. Urology is following. 08/20/2020 Patient is seen this morning continues to be tearful and out of sorts and having difficulty with urination. Patient is supposed to be using straight catheter and self catheterization although states she was never educated on this and is having difficulties. Urology has educated the patient and nursing staff will continue to attempt to educate. Patient was started on the bowel prep yesterday and apparently throughout the night did not continue and states she was not told to do so in the EGD/colonoscopy is being rescheduled for tomorrow morning. Patient will continue on clear liquids and continue with the bowel prep and be nothing by mouth at midnight. Multiple medical consultations following. Patient is maintained on IV antibiotics and will continue. Patient is afebrile although white blood count is on an upward trend today at 17.2 and hemoglobin is stable at 9.3 with no active bleeding noted. Creatinine slightly elevated at 1.37 and will repeat labs in continue to monitor. Patient continues on 4 L of oxygen with a 99% oxygen saturation and does have breathing treatments ordered but is refusing at this time. Patient does use inhalers in the outpatient setting as needed. 08/21/2020 Patient is seen this morning status post EGD colonoscopy and biopsies were obtained from the EGD along with colonoscopy and a large almost completely obstructing colon mass was noted and plans are for surgical intervention on Monday of a diverting colostomy. Multiple medical consultations following. Creatinine slightly improved at 1.33 today and will discontinue IV fluids, potassium is 3.8, sodium is 142. White blood count trending down at 14.1 and hemoglobin is 8.7 and will continue to monitor with repeat labs in the morning. No active bleeding is noted. Patient continues to require straight catheterization for urinary retention as she is refusing indwelling Carbone [address] ter and needs continuous education on learning how to self catheter and nursing staff continues to work with her and educate her on this process. Patient Is extremely anxious and tearful and psychiatry was consulted. Patient continues on cefepime and Flagyl IV with infectious disease following. 08/22/2020 Patient seen on follow-up, she is resting comfortably, , creatinine stable 1.3 fluids are hep-locked at this time. White count continues to come to 13.4 today. No fever, hemodynamically stable saturating above 90% on 2 L nasal cannula. Receiving antimicrobial therapy with cefepime and Flagyl. 08/23/2020 Patient seen sitting up in wheelchair, in no acute distress. Running low-grade fever this morning 100.1. Is continued on antimicrobial therapy cefepime and Flagyl. Blood pressure stable, she is on 2 L nasal cannula saturating above 90%. Using Dilaudid as needed for pain. She is planned for possible diverting colostomy placement 08/24/2020 Patient has been nothing by mouth since midnight and scheduled for diverting ostomy placement with Dr. Rivera today and will await report. Multiple medical consultations including oncology and infectious disease following. Patient white count today slightly improved at 14.8 and hemoglobin is stable at 8.8 with no active bleeding noted. Sodium noted to be 138 with a potassium of 3.7 and current creatinine is 1.52. Lactic acid has improved at 1.4. 08/25/2020 Patient is currently being monitored in the ICU status post diverting colostomy yesterday for continued close monitoring as she was recently extubated. Patient is currently maintained on 6 L of oxygen via nasal cannula and weaning as tolerated. Patient continues to refuse breathing treatments until seen by a robotics systems engineer. Patient is being followed by service counter cashier pulmonary and will discuss with them today. Patient oxygen saturation currently 96%. Blood pressu re stable and patient continues to be tachycardia with low-grade intermittent fevers of 99.9. Patient is continued on fluids along with IV antibiotics in the form of cefepime and Flagyl and will continue. Infectious disease also following. No output noted in the ostomy as of yet. Patient continues to be nothing by mouth per surgery recommendations and has been having occasional ice chips. White blood count today is 18.3, hemoglobin is 8.2, sodium 138, potassium 3.6, creatinine stable 1.31 and nephrology is following. 08/26/2020 Patient is seen this morning continues to be in the ICU being closely monitored with the potential being transferred out of the ICU to oncology once a bed is a vailable. Director Ambulatory following along with multiple medical consultations. Patient continues to be in extreme amounts of pain and soreness status post surgery and stating she is having increased discomfort with the indwelling Carbone catheter. Discussed with the patient about the importance of monitoring intake and output and she is not at the level of capacity to continue self- catheterization and will continue with indwelling Carbone catheter at this time. Instructed and encouraged the patient to continue with the incentive spirometer at least 10 times every hour while awake along with getting up out of the bed today and sitting in the chair. Patient continues to have extreme discomfort in the rectal area making it difficult with position changes and movement and is requesting Dilaudid multiple times and service counter cashier ordering a DROP FORGE OPERATOR pump. Patient continues to fall asleep and is lethargic although easily arousable throughout the exam. 08/27/2020 Patient is seen in follow-up this morning continues to have extreme amounts of pain and was placed on a DROP FORGE OPERATOR pump yesterday although stated she was not receiving adequate pain control and asked to receive IV push Dilaudid and resume other pain medications. Patient will continue on 1 mg of Dilaudid every 6 hours as needed. Patient continues to be on 5 L of oxygen and continues to to states she is short of breath although is needing continued encouragement with incentive spirometer and coughing and deep breathing as she has not been doing so. Patient states she is in too much pain. Patient does have a colostomy with surgery following with gas noted in the ostomy and no stool output as of yet. Patient is on full liquid diet per surgery recommendations and tolerating thus far. Patient remains on IV cefepime and Flagyl with infectious disease following. White blood count trending down at 12.1. Hemoglobin is 7.9, sodium is 137 with a potassium of 4.0 and current creatinine much improved at 0.89. Magnesium is 1.8 today. Blood sugars appear to be well controlled and will continue with current medication regimen. PT/OT to follow. 08/28/2020 Patient is seen this morning and stating she is having increased shortness of breath and some chest discomfort. Multiple medical consultations following. D- dimer was ordered and is elevated at 8.88 and patient is maintained on Lovenox and will obtain CTA which shows tiny filling defects noted within the right upper lobe pulmonary artery branches in the left lower lobe pulmonary arterial branches as well and pulmonary embolism is not excluded. Oncology/hematology following and will discuss anticoagulation. 2-D echo is ordered and currently pending. Venous Dopplers also done of bilateral lower extremities which are negative for DVT. Patient continues to require 5-6 L of oxygen via nasal cannula and maintaining 92% oxygen saturation. Patient continues to be tachy cardic and is having low-grade intermittent fevers. Patient will be started on IV heparin. Constitutional: Continued fatigue denied any fever. Cardiovascular: denied any chest pain, palpitations Gastrointestinal denied any nausea vomiting, new colostomy with some gas in the ostomy and no reported stool as of yet Pulmonary: Reports shortness of breath Neurologic denied any new focal deficits, reports generalized weakness Active Medications Acetaminophen (Acetaminophen Tab 325 Mg Tab) 650 mg PO Q6HR PRN PRN Reason: Mild Pain or Fever > 100.5 Last Admin: 08/28/20 10:03 Dose: 650 mg Documented by: Albuterol/Ipratropium (Ipratropium-Albuterol 3 Ml Neb) 3 ml INHALATION RT-QID PRN PRN Reason: Shortness Of Breath Or Wheezing Albuterol/Ipratropium (Ipratropium-Albuterol 3 Ml Neb) 3 ml INHALATION RT-QID [facility] Last Admin: 08/28/20 12:39 Dose: Not Given Documented by: Benzocaine (Benzocaine 20% Hemorrhoidal Oint 28gm) 1 applic RECTAL QID PRN PRN Reason: Pain Fentanyl (Fentanyl 25mcg/Hr Patch) 1 patch TRANSDERM Q72H [facility]; Protocol Last Admin: 08/27/20 17:17 Dose: 1 patch Documented by: Heparin Sodium (Porcine) (Heparin Sodium 1,000 Un/Ml (10ml Vl)) 0 unit IV PER PROTOCOL PRN; Protocol PRN Reason: Low PTT Hydromorphone HCl (Hydromorphone 1 Mg/Ml 1 Ml Syringe) 1 mg IVP Q6HR PRN PRN Reason: Pain Last Admin: 08/28/20 16:17 Dose: 1 mg Documented by: Hydromorphone HCl (Hydromorphone 2 Mg Tab) 2 mg PO Q3HR PRN PRN Reason: Pain Last Admin: 08/28/20 15:16 Dose: 2 mg Documented by: Cefepime HCl 2 gm/ Sodium (Chloride) 100 mls @ 200 mls/hr IVPB Q12H ISABEL Last Admin: 08/28/20 09:07 Dose: 200 mls/hr Documented by: Metronidazole 500 mg/ IV (Solution) 100 mls @ 100 mls/hr IVPB Q8HR ISABEL Last Admin: 08/28/20 15:59 Dose: 100 mls/hr Documented by: Heparin Sodium/Sodium Chloride (25,000 unit/ Sodium Chloride) 250 mls @ 9.999 mls/hr IV .Q24H ISABEL; Protocol Last Admin: 08/28/20 17:30 Dose: 10.63 units/kg/hr, 10 mls/hr Documented by: Sodium Chloride (Saline 0.9%) 1,000 mls @ 50 mls/hr IV .Q20H ISABEL Last Admin: 08/28/20 17:28 Dose: 50 mls/hr Documented by: Lidocaine (Lidocaine 5% Ointment 50 Gm Jar) 1 applic TOPICAL DAILY PRN PRN Reason: Pain Last Admin: 08/19/20 03:07 Dose: 1 applic Documented by: Lorazepam (Lorazepam 0.5 Mg Tab) 0.5 mg PO Q6HR PRN PRN Reason: Anxiety Last Admin: 08/28/20 13:04 Dose: 0.5 mg Documented by: Miscellaneous Information (Magnesium Replacement Protocol 1 Each Misc) 1 each MISCELLANE DAILY PRN; Protocol PRN Reason: Per Protocol Miscellaneous Information (Potassium Replacement Protocol 1 Each Misc) 1 each MISCELLANE DAILY PRN; Protocol PRN Reason: Per Protocol Naloxone HCl (Naloxone 0.4 Mg/Ml 1 Ml Vial) 0.2 mg IV Q2M PRN PRN Reason: Opioid Reversal Ondansetron HCl (Ondansetron 4 Mg/2 Ml Vial) 4 mg IVP Q8HR PRN PRN Reason: Nausea And Vomiting Last Admin: 08/28/20 10:03 Dose: 4 mg Documented by: Pantoprazole Sodium (Pantoprazole 40 Mg/10 Ml Vial) 40 mg IVP BID [facility] Last Admin: 08/28/20 12:52 Dose: 40 mg Documented by: Objective - Vital Signs Vital signs: Vital Signs Temp 98.2 F 08/28/20 05:00 Pulse 107 H 08/28/20 08:00 Resp 22 08/28/20 08:00 BP 114/77 08/28/20 05:00 Pulse Ox 91 L 08/28/20 05:00 Intake & Output 08/27/20 08/28/20 08/28/20 18:59 06:59 18:59 Intake Total 700 Output Total 1800 800 Balance -1100 -800 Weight 94.1 kg Intake: IV 500 Lactated Ringers 1,000 ml 500 @ 50 mls/hr IV .Q20H ISABEL Rx#:[id number] Intake, IV Titration 200 Amount metroNIDAZOLE-NS PMX 500 200 mg In Saline 1 100ml.bag @ 100 mls/hr IVPB Q8HR [facility] Rx#:[id number] Output: Urine 1800 800 Other: Voiding Method Indwelling Catheter Indwelling Catheter - Exam GENERAL: The patient is alert and oriented x3, Well developed, well nourished. Temp is 99.8F, heart rate 125, resp are 22, blood pressure is 119/79, and 02 saturation is 92% on 6 L via NC HEENT: Pupils are round and equally reacting to light. EOMI. No scleral icterus. No conjunctival pallor. Normocephalic, atraumatic. No pharyngeal erythema. No thyromegaly. CARDIOVASCULAR: S1 and S2 muffled PULMONARY: Diminished breath sounds with some bilateral scattered rhonchi noted ABDOMEN: Soft, tender, nondistended, normoactive bowel sounds. No palpable organomegaly. Left side abdomen colostomy noted with loose brown stool MUSCULOSKELETAL: No joint swelling or deformity. EXTREMITIES: No cyanosis, clubbing, or pedal edema. NEUROLOGICAL: Gross neurological examination did not reveal any focal deficits. diffusely weak SKIN: No rashes. Pale - Labs CBC & Chem 7: 08/28/20 16:45 08/28/20 10:06 Labs: Abnormal Lab Results - Last 24 Hours (Table) 08/27/20 08/27/20 08/27/20 Range/Units 11:08 12:18 17:50 WBC 12.1 H (3.8-10.6) k/uL RBC 3.33 L (3.80-5.40) m/uL Hgb 7.9 L (11.4-16.0) gm/dL Hct 26.8 L (34.0-46.0) % MCH 23.8 L (25.0-35.0) pg MCHC 29.6 L (31.0-37.0) g/dL RDW 15.7 H (11.5-15.5) % Neutrophils # 10.6 H (1.3-7.7) k/uL Lymphocytes # 0.7 L (1.0-4.8) k/uL D-Dimer (<0.60) mg/L FEU BUN (7-17) mg/dL Creatinine (0.52-1.04) mg/dL Glucose (74-99) mg/dL POC Glucose (mg/dL) 128 H 134 H (75-99) mg/dL Calcium (8.4-10.2) mg/dL Urine Appearance (Clear) Urine Protein (Negative) Urine Blood (Negative) Ur Leukocyte Esterase (Negative) Urine RBC (0-5) /hpf Urine WBC (0-5) /hpf Amorphous Sediment (None) /hpf Urine Bacteria (None) /hpf Urine Mucus (None) /hpf 08/28/20 08/28/20 08/28/20 Range/Units 06:59 10:06 10:06 WBC 12.6 H (3.8-10.6) k/uL RBC 3.53 L (3.80-5.40) m/uL Hgb 8.4 L (11.4-16.0) gm/dL Hct 28.8 L (34.0-46.0) % MCH 23.9 L (25.0-35.0) pg MCHC 29.3 L (31.0-37.0) g/dL RDW 15.6 H (11.5-15.5) % Neutrophils # 11.0 H (1.3-7.7) k/uL Lymphocytes # 0.8 L (1.0-4.8) k/uL D-Dimer 8.88 H (<0.60) mg/L FEU BUN 22 H (7-17) mg/dL Creatinine 1.17 H (0.52-1.04) mg/dL Glucose 125 H (74-99) mg/dL POC Glucose (mg/dL) (75-99) mg/dL Calcium 8.1 L (8.4-10.2) mg/dL Urine Appearance (Clear) Urine Protein (Negative) Urine Blood (Negative) Ur Leukocyte Esterase (Negative) Urine RBC (0-5) /hpf Urine WBC (0-5) /hpf Amorphous Sediment (None) /hpf Urine Bacteria (None) /hpf Urine Mucus (None) /hpf 08/28/20 Range/Units 10:45 WBC (3.8-10.6) k/uL RBC (3.80-5.40) m/uL Hgb (11.4-16.0) gm/dL Hct (34.0-46.0) % MCH (25.0-35.0) pg MCHC (31.0-37.0) g/dL RDW (11.5-15.5) % Neutrophils # (1.3-7.7) k/uL Lymphocytes # (1.0-4.8) k/uL D-Dimer (<0.60) mg/L FEU BUN (7-17) mg/dL Creatinine (0.52-1.04) mg/dL Glucose (74-99) mg/dL POC Glucose (mg/dL) (75-99) mg/dL Calcium (8.4-10.2) mg/dL Urine Appearance Turbid H (Clear) Urine Protein 2+ H (Negative) Urine Blood Large H (Negative) Ur Leukocyte Esterase Large H (Negative) Urine RBC >182 H (0-5) /hpf Urine WBC >182 H (0-5) /hpf Amorphous Sediment Rare H (None) /hpf Urine Bacteria Rare H (None) /hpf Urine Mucus Many H (None) /hpf Microbiology - Last 24 Hours (Table) 08/23/20 20:43 Blood Culture - Preliminary Blood No Growth after 96 hours 08/23/20 13:00 Blood Culture - Preliminary Blood No Growth after 96 hours 08/23/20 13:02 Blood Culture - Preliminary Blood No Growth after 96 hours Assessment and Plan Assessment: -Abdominal pain with arin-rectal density/thickness -proctitis -Acute urinary tract infection with sepsis, present on admission -Cervical Cancer with metastasis -rectal mass with pathology revealing invasive poorly differentiated squamous cell carcinoma -acute hypoxic respiratory failure status post surgery requiring 6L 02 via NC -status post diverting colostomy -elevated D-dimer -Possible pulmonary emboli bilaterally -Urinary obstruction/hydronephrosis with possible stent malfunction -Hemorrhagic cycstitis -recent mediport placement -Acute renal injury secondary to dehydration -Acute blood loss anemia from hematuria secondary to urethral catheter traumatic displacement -Shortness of breath secondary to COPD acute exacerbation -pain management -DVT prophylaxis -GI prophylaxis -Full code Plan: Continue current medications and current IV antibiotic therapy. Patient underwent diverting colostomy with surgery recently and was transferred from the ICU to the oncology unit. Diet has been advanced to full liquids and tolerating thus far with some gas noted in the ostomy. Ostomy is now functioning with loose brown stool noted in the bag. Patient will need teaching and educational resources provided by ostomy nurse. Patient continues with shortness of breath and chest pressure and d-dimer was found to be elevated at 8.[address] angiogram as mentioned above. Patient was on Lovenox and will transition to IV heparin. Multiple medical consultations following. Discussed and encouraged incentive spirometer at least 10 times every hour while awake. Patient continues to have extreme discomfort and getting to about 200 on the IS. Also discussed with the patient about increasing activity and getting up out of the bed more often. Continue with indwelling Carbone catheter until patient is more mobile and able to continue straight catheterization herself. Patient diet advanced to full liquids. Patient also received a Mediport on the right chest. Pathology report revealed invasive poorly differentiated squamous cell carcinoma from the rectal biopsy. Oncology is following along with radiation oncology. Treatment plan discussed at length with spouse. Due to multiple complex medical issues, prognosis is extremely guarded. Further recommendations to follow. Will continue to monitor closely.
--- NOTE | 2020-08-28 19:57 | PN ---
PROGRESS NOTE DATE OF SERVICE: 08/28/2020 REASON FOR FOLLOWUP: Complicated UTI and proctitis. INTERVAL HISTORY: The patient is afebrile this morning. However, she did spike a fever of 100.7 last evening. The patient denies having any chest pain. She has been complaining of shortness of breath. Minimal cough. No worsening abdominal pain. She did have output in her colostomy. PHYSICAL EXAMINATION: Blood pressure is 119/79, pulse of 125, temperature 99.8. She is 92% on 6 L oxygen. General description is a middle-aged female up in the bed in no distress. RESPIRATORY SYSTEM: Unlabored breathing with decreased breath sounds at the base. No wheeze. HEART: S1, S2. Regular rhythm. ABDOMEN: Soft. Mildly distended. No guarding or rigidity. LABS: Hemoglobin is 8.9, white count 11.2, creatinine 1.17. Repeat blood and urine cultures so far negative. DIAGNOSTIC IMPRESSION AND PLAN: Patient with a complicated urinary tract infection in this patient who did have metastatic cervical cancer with bilateral hydronephrosis, also with obstructing rectal tumor, status post diverting colostomy. Fever seems to be improving. White count is showing a downward trend. Patient is covered with cefepime, Flagyl. Monitor clinical course closely. MMODL / IJN: [id number] /
[2020-08-29 00:05] LABS: Anisocytosis Slight; Basophils % (A) 0 %; Eosinophils % (A) 0 %; HCT 24.8 % (34.0-46.0); HGB 7.3 gm/dL (11.4-16.0); Hypochromasia Marked; Lymphocytes # (A) 0.5 k/uL (1.0-4.8); Lymphocytes % (A) 6 %; MCH 23.2 pg (25.0-35.0); MCHC 29.3 g/dL (31.0-37.0); MCV 79.1 fL (80.0-100.0); Mean Platelet Volume 9.7; Monocytes # (A) 0.2 k/uL (0-1.0); Monocytes % (A) 2 %; Neutrophils # (A) 7.8 k/uL (1.3-7.7); Neutrophils % (A) 90 %; Platelet Count 155 k/uL (150-450); RBC 3.14 m/uL (3.80-5.40); RDW 16.1 % (11.5-15.5); WBC 8.6 k/uL (3.8-10.6)
[2020-08-29 00:17] LABS: Albumin 2.9 g/dL (3.80-4.90); Albumin/Globulin Ratio 0.78 (1.60-3.17); Bilirubin, Conjugated 0.2 mg/dL (0.20-0.40); Bilirubin,Unconjugated 0.1 mg/dL; Globulin 3.7 g/dL (1.6-3.3); Total Bilirubin 0.3 mg/dL (0.2-1.2); Total Protein 6.6 g/dL (6.2-8.2)
[2020-08-29] MEDS: metroNIDAZOLE-NS PMX 500 MG in SALINE 1 100ML.BAG IVPB SCH ×4 (00:30→23:10)
[2020-08-29] MEDS: HYDROmorphone 2 MG TAB PO PRN ×6 (00:30→23:49)
[2020-08-29 00:32] LABS: Glucose,Whole Blood 252 mg/dL (75-99)
[2020-08-29] MEDS: LORazepam 0.5 MG TAB PO PRN ×4 (01:36→20:51)
[2020-08-29] MEDS: ACETAMINOPHEN TAB 325 MG TAB PO PRN ×4 (01:36→20:51)
[2020-08-29] MEDS: HYDROmorphone 1 MG/ML 1 ML SYRINGE IVP PRN ×4 (04:59→22:20)
[2020-08-29 07:02] LABS: Anisocytosis Slight; Basophils % (A) 0 %; Eosinophils % (A) 0 %; HCT 23.6 % (34.0-46.0); HGB 7.4 gm/dL (11.4-16.0); Hypochromasia Marked; Lymphocytes # (A) 0.8 k/uL (1.0-4.8); Lymphocytes % (A) 8 %; MCH 24.8 pg (25.0-35.0); MCHC 31.2 g/dL (31.0-37.0); MCV 79.7 fL (80.0-100.0); Mean Platelet Volume 9.7; Monocytes # (A) 0.4 k/uL (0-1.0); Monocytes % (A) 4 %; Neutrophils # (A) 8.8 k/uL (1.3-7.7); Neutrophils % (A) 87 %; Platelet Count 153 k/uL (150-450); RBC 2.96 m/uL (3.80-5.40); WBC 10.1 k/uL (3.8-10.6)
[2020-08-29 07:13] LABS: INR 1.1 (<1.2); Partial Thromboplastin Time 28.1 sec (22.0-30.0); Prothrombin Time 11.3 sec (9.0-12.0)
[2020-08-29] MEDS ORDERED: HEPARIN SODIUM 1,000 UN/ML (10ML VL) IV PRN ×3 (07:33→07:53)
[2020-08-29] MEDS: PANTOPRAZOLE 40 MG/10 ML VIAL IVP SCH ×2 (08:11→20:51)
[2020-08-29] MEDS ORDERED: HEPARIN SODIUM 1,000 UN/ML (10ML VL) IV ONE (08:15)
[2020-08-29] MEDS: ONDANSETRON 4 MG/2 ML VIAL IVP PRN (08:32)
[2020-08-29] MEDS: IPRATROPIUM-ALBUTEROL 3 ML NEB INHALATION SCH ×4 (09:10→20:14)
[2020-08-29 10:22] LABS: African American GFR (CKD) 79.3 (60.0-200.0); Albumin 2.9 g/dL (3.80-4.90); Albumin/Globulin Ratio 0.85 (1.60-3.17); Anion Gap 10.4 mmol/L (4.00-12.00); Calcium 8.2 mg/dL (8.7-10.3); Carbon Dioxide 25.6 mmol/L (21.6-31.8); Globulin 3.4 g/dL (1.6-3.3); Non-African American GFR(CKD) 68.5 (60.0-200.0); Potassium 3.8 mmol/L (3.5-5.5); Total Bilirubin 0.3 mg/dL (0.3-1.2); Total Protein 6.3 g/dL (6.2-8.2)
[2020-08-29] MEDS: CEFEPIME 2 GM in SODIUM CHLORIDE 0.9% 100 ML IVPB SCH ×2 (11:18→22:16)
--- NOTE | 2020-08-29 11:21 | P.PN ---
Subjective Progress Note Date: 08/29/20 Principal diagnosis: Proctitis Patient complaining of mild nausea. Still having some pain. Asking for her Flexeril. She is tolerating full liquids and would like to keep an at that for now. She is having ostomy function. Objective - Vital Signs Vital signs: Vital Signs Temp 97.3 F L 08/29/20 05:00 Pulse 94 08/29/20 05:00 Resp 22 08/29/20 05:00 BP 121/79 08/29/20 05:00 Pulse Ox 98 08/29/20 05:00 Intake & Output 08/28/20 08/29/20 08/29/20 18:59 06:59 18:59 Intake Total 2430 1159.167 77.597 Output Total 952 2350 Balance 1478 -1190.833 77.597 Intake: IV 850 Cefepime 2 gm In Sodium 100 Chloride 0.9% 100 ml @ 200 mls/hr IVPB Q12H [facility] Rx#:[id number] Lactated Ringers 1,000 ml 550 @ 50 mls/hr IV .Q20H [facility] Rx#:[id number] metroNIDAZOLE-NS PMX 500 200 mg In Saline 1 100ml.bag @ 100 mls/hr IVPB Q8HR [facility] Rx#:[id number] Intake, IV Titration 679.167 77.597 Amount Heparin Sod,Pork in 0.45% 79.167 77.597 NaCl 25,000 unit In 0.45 % NaCl 1 250ml.bag @ 10. 626 UNITS/KG/HR 9.999 mls /hr IV .Q24H [facility] Rx#: [id number] Sodium Chloride 0.9% 1, 600 000 ml @ 50 mls/hr IV . Q20H [facility] Rx#:[id number] Oral 1580 480 Output: Urine 950 2250 Uretheral (Carbone) 900 Stool 2 100 Other: Voiding Method Indwelling Catheter # Voids 1 - Exam Abdomen: Soft, mild distention, ostomy functioning, dressing clean and dry, mild tenderness - Labs CBC & Chem 7: 08/29/20 06:36 08/29/20 06:36 Labs: Abnormal Lab Results - Last 24 Hours (Table) 08/28/20 08/28/20 08/28/20 Range/Units 06:59 10:06 10:06 WBC (3.8-10.6) k/uL RBC (3.80-5.40) m/uL Hgb (11.4-16.0) gm/dL Hct (34.0-46.0) % MCV (80.0-100.0) fL MCH (25.0-35.0) pg MCHC (31.0-37.0) g/dL RDW (11.5-15.5) % Plt Count (150-450) k/uL Neutrophils # (1.3-7.7) k/uL Lymphocytes # (1.0-4.8) k/uL PT (9.0-12.0) sec INR (<1.2) APTT (22.0-30.0) sec ABG pH (7.35-7.45) ABG pCO2 (35-45) mmHg ABG pO2 (83-108) mmHg ABG HCO3 (21-25) mmol/L ABG Total CO2 (19-24) mmol/L ABG O2 Saturation (94-97) % BUN 22 H (7-17) mg/dL Creatinine 1.17 H (0.52-1.04) mg/dL Est GFR (CKD-EPI)AfAm 57.8 L (60.0-200.0) Est GFR (CKD-EPI)NonAf 49.9 L (60.0-200.0) BUN/Creatinine Ratio (12.00-20.00) Ratio Glucose 160 H 125 H (70-110) mg/dL POC Glucose (mg/dL) (75-99) mg/dL Calcium 8.2 L 8.1 L (8.7-10.3) mg/dL AST 86 H (13-35) U/L Alkaline Phosphatase 533 H 502 H (41-126) U/L Albumin 3.00 L 2.90 L (3.80-4.90) g/dL Globulin 3.7 H 3.7 H (1.6-3.3) g/dL Albumin/Globulin Ratio 0.81 L 0.78 L (1.60-3.17) g/dL Urine Appearance (Clear) Urine Protein (Negative) Urine Blood (Negative) Ur Leukocyte Esterase (Negative) Urine RBC (0-5) /hpf Urine WBC (0-5) /hpf Amorphous Sediment (None) /hpf Urine Bacteria (None) /hpf Urine Mucus (None) /hpf 08/28/20 08/28/20 08/28/20 Range/Units 10:45 12:17 16:45 WBC 11.2 H (3.8-10.6) k/uL RBC 3.28 L (3.80-5.40) m/uL Hgb 8.1 L (11.4-16.0) gm/dL Hct 25.5 L (34.0-46.0) % MCV 77.9 L (80.0-100.0) fL MCH 24.6 L (25.0-35.0) pg MCHC (31.0-37.0) g/dL RDW 16.0 H (11.5-15.5) % Plt Count 142 L (150-450) k/uL Neutrophils # 10.4 H (1.3-7.7) k/uL Lymphocytes # 0.4 L (1.0-4.8) k/uL PT (9.0-12.0) sec INR (<1.2) APTT (22.0-30.0) sec ABG pH 7.55 H (7.35-7.45) ABG pCO2 32 L (35-45) mmHg ABG pO2 32 L* (83-108) mmHg ABG HCO3 29 H (21-25) mmol/L ABG Total CO2 30 H (19-24) mmol/L ABG O2 Saturation 65.4 L (94-97) % BUN (7-17) mg/dL Creatinine (0.52-1.04) mg/dL Est GFR (CKD-EPI)AfAm (60.0-200.0) Est GFR (CKD-EPI)NonAf (60.0-200.0) BUN/Creatinine Ratio (12.00-20.00) Ratio Glucose (70-110) mg/dL POC Glucose (mg/dL) (75-99) mg/dL Calcium (8.7-10.3) mg/dL AST (13-35) U/L Alkaline Phosphatase (41-126) U/L Albumin (3.80-4.90) g/dL Globulin (1.6-3.3) g/dL Albumin/Globulin Ratio (1.60-3.17) g/dL Urine Appearance Turbid H (Clear) Urine Protein 2+ H (Negative) Urine Blood Large H (Negative) Ur Leukocyte Esterase Large H (Negative) Urine RBC >182 H (0-5) /hpf Urine WBC >182 H (0-5) /hpf Amorphous Sediment Rare H (None) /hpf Urine Bacteria Rare H (None) /hpf Urine Mucus Many H (None) /hpf 08/28/20 08/28/20 08/29/20 Range/Units 16:45 23:33 00:30 WBC (3.8-10.6) k/uL RBC 3.14 L (3.80-5.40) m/uL Hgb 7.3 L (11.4-16.0) gm/dL Hct 24.8 L (34.0-46.0) % MCV 79.1 L (80.0-100.0) fL MCH 23.2 L (25.0-35.0) pg MCHC 29.3 L (31.0-37.0) g/dL RDW 16.1 H (11.5-15.5) % Plt Count (150-450) k/uL Neutrophils # 7.8 H (1.3-7.7) k/uL Lymphocytes # 0.5 L (1.0-4.8) k/uL PT 12.1 H (9.0-12.0) sec INR 1.2 H (<1.2) APTT 21.5 L (22.0-30.0) sec ABG pH (7.35-7.45) ABG pCO2 (35-45) mmHg ABG pO2 (83-108) mmHg ABG HCO3 (21-25) mmol/L ABG Total CO2 (19-24) mmol/L ABG O2 Saturation (94-97) % BUN (7-17) mg/dL Creatinine (0.52-1.04) mg/dL Est GFR (CKD-EPI)AfAm (60.0-200.0) Est GFR (CKD-EPI)NonAf (60.0-200.0) BUN/Creatinine Ratio (12.00-20.00) Ratio Glucose (70-110) mg/dL POC Glucose (mg/dL) 252 H (75-99) mg/dL Calcium (8.7-10.3) mg/dL AST (13-35) U/L Alkaline Phosphatase (41-126) U/L Albumin (3.80-4.90) g/dL Globulin (1.6-3.3) g/dL Albumin/Globulin Ratio (1.60-3.17) g/dL Urine Appearance (Clear) Urine Protein (Negative) Urine Blood (Negative) Ur Leukocyte Esterase (Negative) Urine RBC (0-5) /hpf Urine WBC (0-5) /hpf Amorphous Sediment (None) /hpf Urine Bacteria (None) /hpf Urine Mucus (None) /hpf 08/29/20 08/29/20 Range/Units 06:36 06:36 WBC (3.8-10.6) k/uL RBC 2.96 L (3.80-5.40) m/uL Hgb 7.4 L (11.4-16.0) gm/dL Hct 23.6 L (34.0-46.0) % MCV 79.7 L (80.0-100.0) fL MCH 24.8 L (25.0-35.0) pg MCHC (31.0-37.0) g/dL RDW 16.0 H (11.5-15.5) % Plt Count (150-450) k/uL Neutrophils # 8.8 H (1.3-7.7) k/uL Lymphocytes # 0.8 L (1.0-4.8) k/uL PT (9.0-12.0) sec INR (<1.2) APTT (22.0-30.0) sec ABG pH (7.35-7.45) ABG pCO2 (35-45) mmHg ABG pO2 (83-108) mmHg ABG HCO3 (21-25) mmol/L ABG Total CO2 (19-24) mmol/L ABG O2 Saturation (94-97) % BUN (7-17) mg/dL Creatinine (0.52-1.04) mg/dL Est GFR (CKD-EPI)AfAm (60.0-200.0) Est GFR (CKD-EPI)NonAf (60.0-200.0) BUN/Creatinine Ratio 25.00 H (12.00-20.00) Ratio Glucose 223 H (70-110) mg/dL POC Glucose (mg/dL) (75-99) mg/dL Calcium 8.2 L (8.7-10.3) mg/dL AST 110 H (13-35) U/L Alkaline Phosphatase 493 H (41-126) U/L Albumin 2.90 L (3.80-4.90) g/dL Globulin 3.4 H (1.6-3.3) g/dL Albumin/Globulin Ratio 0.85 L (1.60-3.17) g/dL Urine Appearance (Clear) Urine Protein (Negative) Urine Blood (Negative) Ur Leukocyte Esterase (Negative) Urine RBC (0-5) /hpf Urine WBC (0-5) /hpf Amorphous Sediment (None) /hpf Urine Bacteria (None) /hpf Urine Mucus (None) /hpf Microbiology - Last 24 Hours (Table) 08/23/20 20:43 Blood Culture - Preliminary Blood No Growth after 120 hours 08/23/20 13:00 Blood Culture - Preliminary Blood No Growth after 120 hours 08/23/20 13:02 Blood Culture - Preliminary Blood No Growth after 120 hours 08/28/20 10:45 Urine Culture - Preliminary Urine,Voided Assessment and Plan (1) Proctitis Narrative/Plan: Overall patient doing better. Continue full liquids. Increase activity. Fl exeril was added for pain control. Current Visit: Yes Status: Acute Code(s): K62.89 - OTHER SPECIFIED DISEASES OF ANUS AND RECTUM SNOMED Code(s): 9588970
[2020-08-29 11:26] LABS: Glucose,Whole Blood 251 mg/dL (75-99)
--- NOTE | 2020-08-29 12:37 | P.PN ---
Subjective Progress Note Date: 08/29/20 45-year-old female patient who is post diverticular colostomy and insertion of a Mediport. I was asked to evaluate this patient in the recovery as the patient was kept intubated on a mechanical ventilator and anesthesia was quite hesitant to extubate this patient and the patient was kept intubated and the patient was asked to be transferred to the intensive care unit. Still awaiting a bed in the ICU. Currently she is intubated by #7 orotracheal tube. At a time of my arrival, she was assist-control mode at the rate of 14 with a tidal volume of 400 and FiO2 of 100% with a PEEP of 5. The blood gas showed a pH of 7.35 with a pCO2 of 49 and a pO2 of more than 400 and based on that the FiO2 was down to 50%. Her current pulse ox is 97%. She is on propofol which is running at 50 mcg/kg per minute. She is hemodynamically stable. She is a blood pressure 121/75. She is on IV fluids in the form of 0.9 at the rate of KVO and lactated Ringer at the rate of 100 mL an hour. She has adequate urine output. No orogastric tube in place at this point in time. Her abdomen is slightly distended. Colostomy is seen in the left upper quadrant and it's quite viable at this point in time. She has been receiving Dilaudid for pain control. Her postop chest x-ray showed adequate positioning of the ET tube. The patient has a Mediport in a good location. She also has developed some atelectatic bray ges/infiltrate in the right lung base which are obviously new finding compared to the earlier chest x-ray. White cell count from this morning's of 14.8 with a hemoglobin of 8.8. The creatinine is up to 1.52 and the patient's electrodes are all within normal limits. Most recent urine cultures been negative. She has multiple ALLERGIES. She is currently on IV cefepime and Flagyl as empiric antibiotic coverage. 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 The patient initially presented to us with abdominal pain. She does have chronic urinary retention and the patient undergoes self-catheterization. She has also bilateral ureteral stents that were placed on 06/25/2020. The patient has moderate hydronephrosis of the kidneys bilaterally. The patient also had bowel obstruction and a colonoscopy was done by general surgery that showed an obstructive mass at the level of the anal verge and for that reason the recommendation was to proceed with diverticulitis colostomy.. Note that the patient was found to have an obstructing rectal mass at the level of the anal verge. 08/25/2020, the patient is in the intensive care unit. She is currently extubated on 4 L of oxygen by nasal cannula. I extubated yesterday in the recovery room. She did very well. She was given IV fluids. Her sinus tachycardia improved and currently her heart rate is somewhere between 100-110, sinus rhythm. She is still having diffuse abdominal discomfort and pain. She is on Dilaudid for pain control. She has some sluggish bowel sounds. The colostomy site is viable yet nonfunctional yet. There is no output is emanating in the colostomy bag. She is on lactated Ringer at the rate of 150 mL an hour. Her chest x-ray showing some limited left basilar atelectasis. White cell count of 18.3 with hemoglobin of 8.2. Creatinine stable at 1.3 and the rest of the electrodes are all within normal limits. The patient remains on IV cefepime as an empiric antibiotic coverage in combination with Flagyl. Blood cultures of been negative. 08/26/2020, patient for a follow-up. The patient remains extubated and she is awake and alert and she is postop day #2. She is currently on 5 L of oxygen by nasal cannula. She is using incentive spirometer and she is pulling approximately 500 mL. No signs of any respiratory distress. The chest x-ray from yesterday showed some atelectatic changes in the lung bases. Otherwise, no significant cough sputum production. No signs of any respiratory distress. The patient is having some bowel sounds. She was given clear liquids and she has some liquid and magnesium accumulating in the stoma. Her stoma is viable and there is also some functionality. No abdominal distention. No emesis. She remains in some mild degree of sinus tachycardia. She is receiving Dilaudid for pain control. She has received already 1 mg of Dilaudid every 3 hours and 0.5 mg every 1 hour. She was also started on a fentanyl patch 50 g every 72 hours. Antibiotic coverage is with a combination of cefepime and Flagyl. WBC count of 16.9 and the patient symptoms at 7.9. Electrolytes are all within normal limits. Renal function is improving and creatinine is down to 1.05. LFTs are showing an AST of 55, ALT of 18 with alkaline phosphatase of 241. The patient has not ambulated yet. We are going to try to at least get up on a chair for today. She is quite debilitated following her surgery. Patient is seen today 08/27/2020 in follow-up on the regular medical floor. Postoperative day #3. He is currently sitting up in bed. Awake and alert. Maintaining O2 saturations in the 90s on 5 L/m per nasal cannula. She's a febrile. Slightly tachycardic. Chest x-ray showing low lung volumes with left greater than right bibasilar acute atelectasis/infiltrate. No change compared to previous. Needs increased encouragement regarding the use of the incentive spirometer and cough and deep breathing exercises. She is status post 1 unit of packed red blood cells this admission. Current hemoglobin 7.9. Follow-up blood cultures reveal no growth. Urine culture reveals no growth. White count 12.1. Hemoglobin 7.9. Sodium 137. Potassium 4.0. Creatinine 0.89. She remains on cefepime, Flagyl. Passing flatus via the colostomy. The patient is seen today 08/28/2020 in follow-up on the regular medical floor. Postoperative day #4. She is currently resting in bed. Awake and alert. She has been quite uncooperative today. She's been refusing to get up. She's been refusing to use her incentive spirometer. Refusing breathing treatments. She is more congested. She is currently on 6 L high flow nasal cannula. Blood cultures are revealing no growth. Urine culture no growth. Status post 1 unit of packed red blood cells this admission. Current hemoglobin 8.4. White count 12.6. Lactic acid 1.8. Chest x-ray is pending. D-dimer, ABGs ordered per medicine. She is currently on cefepime and Flagyl. On Lovenox for DVT prophylaxis. She's had ongoing issues with pain control. Currently receiving Dilaudid, fentanyl patch in place. Zofran for nausea. Pathology report suggesting rectal mass biopsy of invasive poorly differentiated squamous cell carcinoma metastatic from cervical cancer. The patient is see today 08/29/2020 in follow-up on the regular medical floor. Postoperative day #5. She is currently awake and alert. She is resting comfortably in bed. She is working with the incentive spirometer today. She states she is now willing to be up in a chair at the bedside. She is currently maintaining O2 saturations at 94% on 7 L high flow nasal cannula. She's been afebrile. Hemodynamically stable. CT angiogram revealed tiny filling defects noted within the right upper lobe pulmonary branches in the possibility of PE could not be ruled out. She is currently on a heparin drip. White count 10.1. Hemoglobin 7.4. Sodium 142. Potassium 3.8. Creatinine 1.0. Objective - Vital Signs Vital signs: Vital Signs Temp 98.0 F 08/29/20 11:01 Pulse 103 H 08/29/20 11:01 Resp 20 08/29/20 11:01 BP 134/82 08/29/20 11:01 Pulse Ox 94 L 08/29/20 11:01 Intake & Output 08/28/20 08/29/20 08/29/20 18:59 06:59 18:59 Intake Total 2430 1159.167 77.597 Output Total 952 2350 Balance 1478 -1190.833 77.597 Intake: IV 850 Cefepime 2 gm In Sodium 100 Chloride 0.9% 100 ml @ 200 mls/hr IVPB Q12H [facility] Rx#:[id number] Lactated Ringers 1,000 ml 550 @ 50 mls/hr IV .Q20H [facility] Rx#:[id number] metroNIDAZOLE-NS PMX 500 200 mg In Saline 1 100ml.bag @ 100 mls/hr IVPB Q8HR [facility] Rx#:[id number] Intake, IV Titration 679.167 77.597 Amount Heparin Sod,Pork in 0.45% 79.167 77.597 NaCl 25,000 unit In 0.45 % NaCl 1 250ml.bag @ 10. 626 UNITS/KG/HR 9.999 mls /hr IV .Q24H [facility] Rx#: [id number] Sodium Chloride 0.9% 1, 600 000 ml @ 50 mls/hr IV . Q20H [facility] Rx#:[id number] Oral 1580 480 Output: Urine 950 2250 Uretheral (Carbone) 900 Stool 2 100 Other: Voiding Method Indwelling Catheter Indwelling Catheter # Voids 1 - Exam Reveals a 45-year-old female patient, currently awake, alert, on 7 L 02 NC Head exam was generally normal. There was no scleral icterus or corneal arcus. Mucous membranes were moist. Neck was supple and without jugular venous distension, thyromegaly, or carotid bruits. Carotids were easily palpable bilaterally. There was no adenopathy. Lungs sounds are diminished bilaterally, bilateral rhonchi, crackles in the bilateral bases. Cardiac exam revealed the PMI to be normally situated and sized. The rhythm was regular and no extrasystoles were noted during several minutes of auscultation. The first and second heart sounds were normal and physiologic splitting of the second heart sound was noted. There were no murmurs, rubs, clicks, or gallops. Abdomen is soft and the patient has minimal bowel sounds. She has diabetic colostomy in the left upper quadrant. The colostomy site is viable and functioning. No direct tenderness. No rebound tenderness. No guarding. Examination of the extremities revealed easily palpable radial, femoral and pedal pulses. There was no cyanosis, clubbing or edema. Examination of the skin revealed no evidence of significant rashes, suspicious appearing nevi or other concerning lesions. Neurologically, the patient does not have any focal neurological deficit. Cranial nerves are essentially intact. She is awake and alert. - Labs CBC & Chem 7: 08/29/20 06:36 08/29/20 06:36 Labs: Abnormal Lab Results - Last 24 Hours (Table) 08/28/20 08/28/20 08/28/20 Range/Units 06:59 10:06 12:17 WBC (3.8-10.6) k/uL RBC (3.80-5.40) m/uL Hgb (11.4-16.0) gm/dL Hct (34.0-46.0) % MCV (80.0-100.0) fL MCH (25.0-35.0) pg MCHC (31.0-37.0) g/dL RDW (11.5-15.5) % Plt Count (150-450) k/uL Neutrophils # (1.3-7.7) k/uL Lymphocytes # (1.0-4.8) k/uL PT (9.0-12.0) sec INR (<1.2) APTT (22.0-30.0) sec ABG pH 7.55 H (7.35-7.45) ABG pCO2 32 L (35-45) mmHg ABG pO2 32 L* (83-108) mmHg ABG HCO3 29 H (21-25) mmol/L ABG Total CO2 30 H (19-24) mmol/L ABG O2 Saturation 65.4 L (94-97) % Est GFR (CKD-EPI)AfAm 57.8 L (60.0-200.0) Est GFR (CKD-EPI)NonAf 49.9 L (60.0-200.0) BUN/Creatinine Ratio (12.00-20.00) Ratio Glucose 160 H (70-110) mg/dL POC Glucose (mg/dL) (75-99) mg/dL Calcium 8.2 L (8.7-10.3) mg/dL AST 86 H (13-35) U/L Alkaline Phosphatase 533 H 502 H (41-126) U/L Albumin 3.00 L 2.90 L (3.80-4.90) g/dL Globulin 3.7 H 3.7 H (1.6-3.3) g/dL Albumin/Globulin Ratio 0.81 L 0.78 L (1.60-3.17) g/dL 08/28/20 08/28/20 08/28/20 Range/Units 16:45 16:45 23:33 WBC 11.2 H (3.8-10.6) k/uL RBC 3.28 L 3.14 L (3.80-5.40) m/uL Hgb 8.1 L 7.3 L (11.4-16.0) gm/dL Hct 25.5 L 24.8 L (34.0-46.0) % MCV 77.9 L 79.1 L (80.0-100.0) fL MCH 24.6 L 23.2 L (25.0-35.0) pg MCHC 29.3 L (31.0-37.0) g/dL RDW 16.0 H 16.1 H (11.5-15.5) % Plt Count 142 L (150-450) k/uL Neutrophils # 10.4 H 7.8 H (1.3-7.7) k/uL Lymphocytes # 0.4 L 0.5 L (1.0-4.8) k/uL PT 12.1 H (9.0-12.0) sec INR 1.2 H (<1.2) APTT 21.5 L (22.0-30.0) sec ABG pH (7.35-7.45) ABG pCO2 (35-45) mmHg ABG pO2 (83-108) mmHg ABG HCO3 (21-25) mmol/L ABG Total CO2 (19-24) mmol/L ABG O2 Saturation (94-97) % Est GFR (CKD-EPI)AfAm (60.0-200.0) Est GFR (CKD-EPI)NonAf (60.0-200.0) BUN/Creatinine Ratio (12.00-20.00) Ratio Glucose (70-110) mg/dL POC Glucose (mg/dL) (75-99) mg/dL Calcium (8.7-10.3) mg/dL AST (13-35) U/L Alkaline Phosphatase (41-126) U/L Albumin (3.80-4.90) g/dL Globulin (1.6-3.3) g/dL Albumin/Globulin Ratio (1.60-3.17) g/dL 08/29/20 08/29/20 08/29/20 Range/Units 00:30 06:36 06:36 WBC (3.8-10.6) k/uL RBC 2.96 L (3.80-5.40) m/uL Hgb 7.4 L (11.4-16.0) gm/dL Hct 23.6 L (34.0-46.0) % MCV 79.7 L (80.0-100.0) fL MCH 24.8 L (25.0-35.0) pg MCHC (31.0-37.0) g/dL RDW 16.0 H (11.5-15.5) % Plt Count (150-450) k/uL Neutrophils # 8.8 H (1.3-7.7) k/uL Lymphocytes # 0.8 L (1.0-4.8) k/uL PT (9.0-12.0) sec INR (<1.2) APTT (22.0-30.0) sec ABG pH (7.35-7.45) ABG pCO2 (35-45) mmHg ABG pO2 (83-108) mmHg ABG HCO3 (21-25) mmol/L ABG Total CO2 (19-24) mmol/L ABG O2 Saturation (94-97) % Est GFR (CKD-EPI)AfAm (60.0-200.0) Est GFR (CKD-EPI)NonAf (60.0-200.0) BUN/Creatinine Ratio 25.00 H (12.00-20.00) Ratio Glucose 223 H (70-110) mg/dL POC Glucose (mg/dL) 252 H (75-99) mg/dL Calcium 8.2 L (8.7-10.3) mg/dL AST 110 H (13-35) U/L Alkaline Phosphatase 493 H (41-126) U/L Albumin 2.90 L (3.80-4.90) g/dL Globulin 3.4 H (1.6-3.3) g/dL Albumin/Globulin Ratio 0.85 L (1.60-3.17) g/dL 08/29/20 Range/Units 11:04 WBC (3.8-10.6) k/uL RBC (3.80-5.40) m/uL Hgb (11.4-16.0) gm/dL Hct (34.0-46.0) % MCV (80.0-100.0) fL MCH (25.0-35.0) pg MCHC (31.0-37.0) g/dL RDW (11.5-15.5) % Plt Count (150-450) k/uL Neutrophils # (1.3-7.7) k/uL Lymphocytes # (1.0-4.8) k/uL PT (9.0-12.0) sec INR (<1.2) APTT (22.0-30.0) sec ABG pH (7.35-7.45) ABG pCO2 (35-45) mmHg ABG pO2 (83-108) mmHg ABG HCO3 (21-25) mmol/L ABG Total CO2 (19-24) mmol/L ABG O2 Saturation (94-97) % Est GFR (CKD-EPI)AfAm (60.0-200.0) Est GFR (CKD-EPI)NonAf (60.0-200.0) BUN/Creatinine Ratio (12.00-20.00) Ratio Glucose (70-110) mg/dL POC Glucose (mg/dL) 251 H (75-99) mg/dL Calcium (8.7-10.3) mg/dL AST (13-35) U/L Alkaline Phosphatase (41-126) U/L Albumin (3.80-4.90) g/dL Globulin (1.6-3.3) g/dL Albumin/Globulin Ratio (1.60-3.17) g/dL Microbiology - Last 24 Hours (Table) 08/28/20 09:17 Blood Culture - Preliminary Blood No Growth after 24 hours 08/28/20 09:30 Blood Culture - Preliminary Blood No Growth after 24 hours 08/23/20 20:43 Blood Culture - Preliminary Blood No Growth after 120 hours 08/23/20 13:00 Blood Culture - Preliminary Blood No Growth after 120 hours 08/23/20 13:02 Blood Culture - Preliminary Blood No Growth after 120 hours 08/28/20 10:45 Urine Culture - Preliminary Urine,Voided Assessment and Plan Assessment: 1 Acute hypoxic respiratory failure following bowel surgery which involved diverting colostomy. She was extubated, currently on 7 L/min per nasal canula. CT angiogram performed on 08/28/2020 revealed possibility of tiny pulmonary emboli. Initiated on a heparin drip. 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 Biopsies revealed invasive poorly differentiated squamous cell carcinoma suspect metastatic from cervical cancer 4 obstructive uropathy with bilateral hydronephrosis post-insertion of double-J stent. 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 Mares CT angiogram cannot rule out tiny pulmonary emboli Venous Doppler negative Was started on heparin drip yesterday Currently on 7 L nasal cannula Oncology is on the case I, the cosigning physician, performed a history & physical examination of the patient. Lungs sounds with bilateral scattered rhonchi, crackles in the bilateral posterior bases. Maintaining good O2 saturations in the 90s on 7 L/m per nasal cannula. I discussed the assessment and plan of care with my nurse practitioner, Jody Garcia. I attest to the above note as dictated by her.
--- NOTE | 2020-08-29 13:38 | P.PN ---
Subjective Progress Note Date: 08/29/20 The patient continues to complain of some shortness of breath at rest. She is on 6-7 L of oxygen by nasal cannula. She appears somewhat more comfortable compared to yesterday. She states that she was able to sit on the edge of the bed and stand very briefly with support. Oral intake is diminished but she has not had any nausea or vomiting so far. Ostomy appears to be functioning. She is having some mild vaginal spotting. Objective - Vital Signs Vital signs: Vital Signs Temp 98.0 F 08/29/20 11:01 Pulse 103 H 08/29/20 11:01 Resp 20 08/29/20 11:01 BP 134/82 08/29/20 11:01 Pulse Ox 94 L 08/29/20 11:01 Intake & Output 08/28/20 08/29/20 08/29/20 18:59 06:59 18:59 Intake Total 2430 1159.167 77.597 Output Total 952 2350 Balance 1478 -1190.833 77.597 Intake: IV 850 Cefepime 2 gm In Sodium 100 Chloride 0.9% 100 ml @ 200 mls/hr IVPB Q12H [facility] Rx#:[id number] Lactated Ringers 1,000 ml 550 @ 50 mls/hr IV .Q20H [facility] Rx#:[id number] metroNIDAZOLE-NS PMX 500 200 mg In Saline 1 100ml.bag @ 100 mls/hr IVPB Q8HR [facility] Rx#:[id number] Intake, IV Titration 679.167 77.597 Amount Heparin Sod,Pork in 0.45% 79.167 77.597 NaCl 25,000 unit In 0.45 % NaCl 1 250ml.bag @ 10. 626 UNITS/KG/HR 9.999 mls /hr IV .Q24H [facility] Rx#: [id number] Sodium Chloride 0.9% 1, 600 000 ml @ 50 mls/hr IV . Q20H [facility] Rx#:[id number] Oral 1580 480 Output: Urine 950 2250 Uretheral (Carbone) 900 Stool 2 100 Other: Voiding Method Indwelling Catheter Indwelling Catheter # Voids 1 - Constitutional General appearance: Present: no acute distress - EENT Eyes: Present: EOMI ENT: Present: hearing grossly normal, normal oropharynx - Respiratory Respiratory: bilateral: diminished - Cardiovascular Rhythm: regular Heart sounds: normal: S1, S2 - Gastrointestinal Gastrointestinal Comment(s): Left lower quadrant ostomy, with soft brown stool General gastrointestinal: Present: normal bowel sounds, soft - Integumentary Integumentary: Present: normal - Neurologic Neurologic: Present: CNII-XII intact - Musculoskeletal Musculoskeletal: Present: generalized weakness, strength equal bilaterally - Psychiatric Psychiatric: Present: A&O x's 3 - Labs CBC & Chem 7: 08/29/20 06:36 08/29/20 06:36 Labs: Abnormal Lab Results - Last 24 Hours (Table) 08/28/20 08/28/20 08/28/20 Range/Units 06:59 10:06 16:45 WBC 11.2 H (3.8-10.6) k/uL RBC 3.28 L (3.80-5.40) m/uL Hgb 8.1 L (11.4-16.0) gm/dL Hct 25.5 L (34.0-46.0) % MCV 77.9 L (80.0-100.0) fL MCH 24.6 L (25.0-35.0) pg MCHC (31.0-37.0) g/dL RDW 16.0 H (11.5-15.5) % Plt Count 142 L (150-450) k/uL Neutrophils # 10.4 H (1.3-7.7) k/uL Lymphocytes # 0.4 L (1.0-4.8) k/uL PT (9.0-12.0) sec INR (<1.2) APTT (22.0-30.0) sec Est GFR (CKD-EPI)AfAm 57.8 L (60.0-200.0) Est GFR (CKD-EPI)NonAf 49.9 L (60.0-200.0) BUN/Creatinine Ratio (12.00-20.00) Ratio Glucose 160 H (70-110) mg/dL POC Glucose (mg/dL) (75-99) mg/dL Calcium 8.2 L (8.7-10.3) mg/dL AST 86 H (13-35) U/L Alkaline Phosphatase 533 H 502 H (41-126) U/L Albumin 3.00 L 2.90 L (3.80-4.90) g/dL Globulin 3.7 H 3.7 H (1.6-3.3) g/dL Albumin/Globulin Ratio 0.81 L 0.78 L (1.60-3.17) g/dL 08/28/20 08/28/20 08/29/20 Range/Units 16:45 23:33 00:30 WBC (3.8-10.6) k/uL RBC 3.14 L (3.80-5.40) m/uL Hgb 7.3 L (11.4-16.0) gm/dL Hct 24.8 L (34.0-46.0) % MCV 79.1 L (80.0-100.0) fL MCH 23.2 L (25.0-35.0) pg MCHC 29.3 L (31.0-37.0) g/dL RDW 16.1 H (11.5-15.5) % Plt Count (150-450) k/uL Neutrophils # 7.8 H (1.3-7.7) k/uL Lymphocytes # 0.5 L (1.0-4.8) k/uL PT 12.1 H (9.0-12.0) sec INR 1.2 H (<1.2) APTT 21.5 L (22.0-30.0) sec Est GFR (CKD-EPI)AfAm (60.0-200.0) Est GFR (CKD-EPI)NonAf (60.0-200.0) BUN/Creatinine Ratio (12.00-20.00) Ratio Glucose (70-110) mg/dL POC Glucose (mg/dL) 252 H (75-99) mg/dL Calcium (8.7-10.3) mg/dL AST (13-35) U/L Alkaline Phosphatase (41-126) U/L Albumin (3.80-4.90) g/dL Globulin (1.6-3.3) g/dL Albumin/Globulin Ratio (1.60-3.17) g/dL 08/29/20 08/29/20 08/29/20 Range/Units 06:36 06:36 11:04 WBC (3.8-10.6) k/uL RBC 2.96 L (3.80-5.40) m/uL Hgb 7.4 L (11.4-16.0) gm/dL Hct 23.6 L (34.0-46.0) % MCV 79.7 L (80.0-100.0) fL MCH 24.8 L (25.0-35.0) pg MCHC (31.0-37.0) g/dL RDW 16.0 H (11.5-15.5) % Plt Count (150-450) k/uL Neutrophils # 8.8 H (1.3-7.7) k/uL Lymphocytes # 0.8 L (1.0-4.8) k/uL PT (9.0-12.0) sec INR (<1.2) APTT (22.0-30.0) sec Est GFR (CKD-EPI)AfAm (60.0-200.0) Est GFR (CKD-EPI)NonAf (60.0-200.0) BUN/Creatinine Ratio 25.00 H (12.00-20.00) Ratio Glucose 223 H (70-110) mg/dL POC Glucose (mg/dL) 251 H (75-99) mg/dL Calcium 8.2 L (8.7-10.3) mg/dL AST 110 H (13-35) U/L Alkaline Phosphatase 493 H (41-126) U/L Albumin 2.90 L (3.80-4.90) g/dL Globulin 3.4 H (1.6-3.3) g/dL Albumin/Globulin Ratio 0.85 L (1.60-3.17) g/dL Microbiology - Last 24 Hours (Table) 08/28/20 10:45 Urine Culture - Final Urine,Voided 08/28/20 09:17 Blood Culture - Preliminary Blood No Growth after 24 hours 08/28/20 09:30 Blood Culture - Preliminary Blood No Growth after 24 hours 08/23/20 20:43 Blood Culture - Preliminary Blood No Growth after 120 hours 08/23/20 13:00 Blood Culture - Preliminary Blood No Growth after 120 hours 08/23/20 13:02 Blood Culture - Preliminary Blood No Growth after 120 hours Assessment and Plan (1) Acute respiratory failure Narrative/Plan: The patient CTA had shown possible small PE. The case was discussed with radiology, who confirmed that pulmonary emboli or more likely. Patient was therefore started on IV heparin on which she continues. Doppler of lower extremities were negative. - There was concern for sepsis as an etiology. Patient is on broad-spectrum antibiotics with ID following. Repeat cultures are negative so far. She is afebrile. Defer to ID for antibiotic management - Patient is also being followed by primary medicine. There notes were reviewed, and it appears at this time the concur with decision for anticoagulation. This will be confirmed with them. If the patient remains stable, she can be switched over to by mouth and the next 24-48 hours - Patient also has bilateral loculated pleural effusions. Defer to pulmonary medicine as to whether these required intervention or not Current Visit: Yes Status: Acute Code(s): J96.00 - ACUTE RESPIRATORY FAILURE, UNSP W HYPOXIA OR HYPERCAPNIA SNOMED Code(s): 85901208 (2) Cervical cancer Narrative/Plan: The patient has locally advanced cervical cancer with hydronephrosis, and direct invasion of the rectum. Most recent PET scan had not shown any evidence of metastatic disease. Due to direct involvement of the rectum and impending obstruction, the patient required a diverting ostomy procedure - The case was discussed in detail with the admitting service. Based on her most recent stage, the patient is actually a candidate for curative treatment with combined chemoradiation. However she had to have emergent surgery, which precludes starting chemotherapy or radiation immediately. We'll therefore have to wait until the patient has sufficiently recovered. - At this time the patient's performance status is due to her debility is also not optimal for combined chemoradiation. It was discussed in detail with her and her family, that she will need to continue to work with physical therapy, and other recommended treatments to be able to optimize her performance status and off down the line to be able to receive any aggressive treatment for her cancer. She and her family had expressed understanding of the same. This was again reiterated to her today. - Continue physical therapy, and I S. Since at this time, it is likely the patient will need about a 2 week interval post surgery before starting treatment and a 3 to four-week interval before starting chemotherapy, placement for subacute rehab during that time could potentially be beneficial for her. This was also discussed with the admitting service, who will evaluate her further for the same Current Visit: Yes Status: Acute Code(s): C53.9 - MALIGNANT NEOPLASM OF CERVIX UTERI, UNSPECIFIED SNOMED Code(s): 067439564 (3) Anemia Narrative/Plan: At this time this is felt to be multifactorial, due to anemia of malignancy, as well as kidney injury and inflammation. In addition the patient is status post surgery. Anemia of blood loss from her tumor could also be a component. - Hemoglobin is 7 range. Continue to monitor and transfuse for hemoglobin less than 7 - Check labs for deficiency states, given fairly prolonged hospitalization, and or oral intake. - Watch for any evidence of abnormal bleeding on and the correlation. So far only some mild vaginal spotting has been noted and hemoglobin has been stable Current Visit: Yes Status: Acute Code(s): D64.9 - ANEMIA, UNSPECIFIED SNOMED Code(s): 089456460
[2020-08-29] MEDS: CYCLOBENZAPRINE 5 MG TAB PO PRN ×2 (14:35→22:20)
[2020-08-29] MEDS: HEPARIN SOD,PORK IN 0.45% NACL 25,000 UNIT in 0.45% NACL 1 250ML.BAG IV SCH (14:42)
--- NOTE | 2020-08-29 15:47 | ECHOF ---
Referral Reason:bed side, CHF? MEASUREMENTS -------- HEIGHT: 175.3 cm WEIGHT: 93.9 kg BP: IVSd: 1.2 cm (0.6 - 1.1) LVIDd: 4.4 cm (3.9 - 5.3) LVPWd: 1.2 cm (0.6 - 1.1) EDV(Teich): 89 ml IVSs: 1.7 cm LVIDs: 2.9 cm LVPWs: 1.5 cm %IVS Thck: 40 % ESV(Teich): 31 ml EF(Teich): 65 % %FS: 35 % SV(Teich): 58 ml LA Diam: 3.5 cm (2.7 - 3.8) RVIDd: 3.1 cm (< 3.3) LALs A4C: 4.8 cm LAAs A4C: 14.8 cm LAESV A-L A4C: 38 ml LAESV MOD A4C: 36 ml LALs A2C: 4.9 cm LAAs A2C: 15.6 cm LAESV A-L A2C: 42 ml LAESV MOD A2C: 39 ml LAESV(A-L): 40 ml LAESV Index (A-L): 19.28 ml/m Ao Diam: 2.8 cm (2.0 - 3.7) AV Cusp: 2.1 cm (1.5 - 2.6) EPSS: 0.3 cm MV E Frankie: 1.13 m/s MV DecT: 189 ms MV Dec Juniata: 6.0 m/s MV A Frankie: 1.33 m/s MV E/A Ratio: 0.85 MV PHT: 55 ms LVOT Vmax: 1.89 m/s LVOT maxP.21 mmHg AV Vmax: 2.21 m/s AV maxP.61 mmHg TR Vmax: 3.67 m/s TR maxP.76 mmHg RAP: 15.00 mmHg RVSP: 68.76 mmHg MV EF SLOPE: 100.98 mm/s (70 - 150) MV EXCURSION: 18.55 mm (> 18.000) FINDINGS -------- Resting tachycardia (HR>100bpm). This was a technically good study. The left ventricular size is normal. There is borderline concentric left ventricular hypertrophy. Overall left ventricular systolic function is normal with, an EF between 65 - 70 %. The right ventricle is normal in size. Normal LA size by volume 22+/-6 ml/m2. The right atrium is normal in size. Interatrial and interventricular septum intact. The aortic valve is trileaflet and appears structurally normal. The mitral valve is normal. Mild tricuspid regurgitation present. There is severe pulmonary hypertension. The right ventricul ar systolic pressure, as measured by Doppler, is 68.76mmHg. Trace/mild (physiologic) pulmonic regurgitation. The aortic root size is normal. Normal inferior vena cava with less than 50% inspiratory collapse consistent with estimated right atr ial pressure of 15 mmHg. There is a small pericardial effusion located near the left ventricle. CONCLUSIONS -------- 1. Resting tachycardia (HR>100bpm). 2. The left ventricular size is normal. 3. There is borderline concentric left ventricular hypertrophy. 4. Overall left ventricular systolic function is normal with, an EF between 65 - 70 %. 5. Mild tricuspid regurgitation present. 6. There is severe pulmonary hypertension. 7. The right ventricular systolic pressure, as measured by Doppler, is 68.76mmHg. 8. Trace/mild (physiologic) pulmonic regurgitation. 9. Normal inferior vena cava with less than 50% inspiratory collapse consistent with estimated right atrial pressure of 15 mmHg. 10. There is a small pericardial effusion located near the left ventricle. TUBE BENDER: Marquita Lozano RDCS
[2020-08-29] MEDS: SODIUM CHLORIDE 0.9% 1,000 ML IV SCH (16:51)
[2020-08-29 16:57] LABS: Glucose,Whole Blood 168 mg/dL (75-99)
[2020-08-29] MEDS: HEPARIN SODIUM 1,000 UN/ML (10ML VL) IV PRN ×2 (17:20→23:07)
--- NOTE | 2020-08-29 22:38 | PN ---
PROGRESS NOTE DATE OF SERVICE: 08/29/2020 This 45-year-old was admitted with locally advanced cervical cancer, also had bilateral hydronephrosis. Patient also had significant shortness of breath. The possibility of pulmonary embolism is considered. The patient is on IV heparin. The patient has some mild spotting at this time. Multiple consultants are following the patient. The patient also had history of significant noncompliance also. The patient is on 6 to 7 L of oxygen by nasal cannula. Surgery and Infectious Disease and as well as pulmonology are the following the patient closely. The patient is on heparin drip at this time. No chest pain. No palpitations. No fever. PAST MEDICAL HISTORY: Reviewed. REVIEW OF SYSTEMS: Cardiovascular: No angina or palpitations. Respiration: As mentioned earlier. GI as mentioned. : No dysuria. NERVOUS SYSTEM: No numbness. No weakness. CURRENT MEDICATIONS: Tylenol, DuoNeb, benzocaine, Cefepime, fentanyl. Doses reviewed. PHYSICAL EXAMINATION: Patient is alert, oriented x3. Pulse is 98. Blood pressure is 135/82, respirations 22, temperature 98 degrees, pulse ox 94% on several L. HEENT: Conjunctivae normal. NECK: No JVD. CARDIOVASCULAR: S1, S2 muffled. RESPIRATORY SYSTEM: Breath sounds diminished at the bases. Bilateral scattered rhonchi and crackles. ABDOMEN: Soft, obese. Nontender. LEGS: No edema. No swelling. NERVOUS SYSTEM: No focal deficits. LABS: WBC 10.1, hemoglobin 7.4. Glucose noted. ASSESSMENT: 1. Abdominal pain with locally advanced cervical cancer, status post abdominal surgery and diverting colostomy. 2. Acute hypoxic respiratory failure, multifactorial possibly. 3. Acute pulmonary embolism, possibly. 4. 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 5. Acute urinary tract infection with sepsis present on admission. 6. Elevated D-dimer. 7. Urinary obstruction, hydronephrosis with possible stent malfunction. 9. History of recent MediPort placement. 10.Acute renal injury. 11.Acute blood loss anemia. 12.Shortness of breath and possible chronic obstructive pulmonary disease acute exacerbation. 13.Pain management. 14.Anemia multifactorial. RECOMMENDATIONS AND DISCUSSION: Recommend to continue current medications, and symptomatic treatment. Importance of compliance is stressed with the patient. Had multiple discussions with the family. I would also recommend repeat CBC and if hemoglobin less than 7 recommend transfusion. Prognosis is extremely guarded because of multiple complex medical issues and the input from multiple consults appreciated. Discussed with the patient. Further recommendations to follow. MMODL / IJN: [id number] / DALE
--- NOTE | 2020-08-30 00:04 | PN ---
PROGRESS NOTE DATE OF SERVICE: 08/29/2020 REASON FOR FOLLOWUP: Complicated UTI and proctitis. INTERVAL HISTORY: The patient is currently afebrile. Patient is breathing slightly comfortably. Patient denies having any chest pain. Did have some cough, not bringing up sputum. Because of abdominal pain, he wants more pain medication. Nausea but no vomiting. PHYSICAL EXAMINATION: Blood pressure 134/80 with a pulse of 101, temperature 97.7. She is 95% on 5 L nasal cannula. General description is a middle aged female lying in in no distress. Respiratory system: Unlabored breathing, clear to auscultation anteriorly. Heart S1, S2. Regular rate and rhythm. ABDOMEN: Soft, mildly tender. No guarding. No rigidity. LABS: Hemoglobin 7.4, white count 10.1, BUN of 25, creatinine 1.0. Cultures have been negative. DIAGNOSTIC IMPRESSION AND PLAN: Patient with a complicated urinary tract infection with colitis in this patient did have a metastatic cervical cancer with obstructing rectal tumor status post diverting colostomy. The patient on cefepime and Flagyl. White count normal. Continue current antibiotic therapy and monitor clinical course closely. Continue supportive care. MMODL / IJN: [id number] /
[2020-08-30] MEDS: ACETAMINOPHEN TAB 325 MG TAB PO PRN ×3 (02:40→16:55)
[2020-08-30] MEDS: HYDROmorphone 2 MG TAB PO PRN ×6 (02:40→23:20)
[2020-08-30] MEDS: HEPARIN SOD,PORK IN 0.45% NACL 25,000 UNIT in 0.45% NACL 1 250ML.BAG IV SCH ×2 (03:01→13:48)
[2020-08-30] MEDS: HYDROmorphone 1 MG/ML 1 ML SYRINGE IVP PRN ×3 (04:14→20:53)
[2020-08-30] MEDS: CYCLOBENZAPRINE 5 MG TAB PO PRN ×2 (04:17→14:24)
[2020-08-30 04:19] LABS: Glucose,Whole Blood 125 mg/dL (75-99)
[2020-08-30] MEDS: LORazepam 0.5 MG TAB PO PRN ×3 (05:51→23:15)
[2020-08-30] MEDS: PANTOPRAZOLE 40 MG/10 ML VIAL IVP SCH ×2 (08:39→20:53)
[2020-08-30] MEDS: metroNIDAZOLE-NS PMX 500 MG in SALINE 1 100ML.BAG IVPB SCH ×3 (08:41→23:15)
[2020-08-30] MEDS: IPRATROPIUM-ALBUTEROL 3 ML NEB INHALATION SCH ×5 (08:47→20:23)
[2020-08-30] MEDS ORDERED: HEPARIN SODIUM 1,000 UN/ML (10ML VL) IVP ONE ×2 (09:39→18:15)
[2020-08-30 09:41] LABS: Anisocytosis Slight; Basophils % (A) 0 %; Eosinophils # (A) 0.1 k/uL (0-0.7); Eosinophils % (A) 1 %; HCT 26.6 % (34.0-46.0); HGB 7.7 gm/dL (11.4-16.0); Hypochromasia Marked; Lymphocytes % (A) 7 %; MCH 23.4 pg (25.0-35.0); MCHC 28.8 g/dL (31.0-37.0); MCV 81.3 fL (80.0-100.0); Mean Platelet Volume 9.4; Monocytes # (A) 0.5 k/uL (0-1.0); Monocytes % (A) 4 %; Neutrophils # (A) 12.9 k/uL (1.3-7.7); Neutrophils % (A) 88 %; Platelet Count 216 k/uL (150-450); RBC 3.28 m/uL (3.80-5.40); RDW 16.5 % (11.5-15.5); WBC 14.7 k/uL (3.8-10.6)
[2020-08-30 09:43] LABS: Potassium 3.9 mmol/L (3.5-5.1)
[2020-08-30 09:44] LABS: African American GFR (CKD) 83 (>60 ml/min/1.73 sqM); Anion Gap 7 mmol/L; Blood Urea Nitrogen 22 mg/dL (7-17); Calcium 8.4 mg/dL (8.4-10.2); Carbon Dioxide 26 mmol/L (22-30); Chloride 107 mmol/L (98-107); Glucose 122 mg/dL (74-99); Non-African American GFR(CKD) 72 (>60 ml/min/1.73 sqM); Sodium 140 mmol/L (137-145)
[2020-08-30] MEDS: SODIUM CHLORIDE 0.9% 1,000 ML IV SCH (09:53)
[2020-08-30] MEDS: CEFEPIME 2 GM in SODIUM CHLORIDE 0.9% 100 ML IVPB SCH ×2 (09:56→22:02)
--- NOTE | 2020-08-30 10:35 | XR ---
EXAMINATION TYPE: XR chest 1V portable DATE OF EXAM: 08/30/2020 COMPARISON: Chest x-ray 08/28/2020 HISTORY: Pneumonia TECHNIQUE: Single frontal view of the chest is obtained. FINDINGS: Patchy bibasilar density is again noted, aeration thought to be somewhat improved. No evid ent pneumothorax. Port is again noted. Cardiac mediastinal silhouette is stable and at upper limit of normal for size. Lung volumes are low and the mediastinal silhouette is stable. Right hemidiaphragm is elevated. IMPRESSION: Improvement in aeration
[2020-08-30 10:53] LABS: % Iron Saturation 6.49 (12.00-45.00)
[2020-08-30 10:57] LABS: Ferritin 1068.3 ng/mL (10.0-291.0)
[2020-08-30 12:07] LABS: Glucose,Whole Blood 111 mg/dL (75-99)
--- NOTE | 2020-08-30 12:18 | P.PN ---
Subjective Progress Note Date: 08/30/20 Principal diagnosis: Proctitis Patient complaining of intermittent pain at her catheter site and abdomen. Tolerating her full liquids. White blood cell count increased at 14 today. She is having ostomy function. No vomiting. Objective - Vital Signs Vital signs: Vital Signs Temp 99.2 F 08/30/20 11:02 Pulse 110 H 08/30/20 11:02 Resp 24 08/30/20 11:02 BP 133/85 08/30/20 11:02 Pulse Ox 91 L 08/30/20 11:02 Intake & Output 08/29/20 08/30/20 08/30/20 18:59 06:59 18:59 Intake Total 166.371 1196.372 135.693 Output Total 600 1575 750 Balance -394.739 299.372 -614.307 Intake: Intake, IV Titration 205.261 994.372 135.693 Amount Cefepime 2 gm In Sodium 100 Chloride 0.9% 100 ml @ 200 mls/hr IVPB Q12H [facility] Rx#:[id number] Heparin Sod,Pork in 0.45% 205.261 194.372 135.693 NaCl 25,000 unit In 0.45 % NaCl 1 250ml.bag @ 10. 626 UNITS/KG/HR 9.999 mls /hr IV .Q24H [facility] Rx#: [id number] Sodium Chloride 0.9% 1, 600 000 ml @ 50 mls/hr IV . Q20H [facility] Rx#:[id number] metroNIDAZOLE-NS PMX 500 100 mg In Saline 1 100ml.bag @ 100 mls/hr IVPB Q8HR [facility] Rx#:[id number] Oral 880 Output: Urine 600 1450 550 Uretheral (Carbone) 1200 Stool 125 200 Other: Voiding Method Indwelling Catheter Indwelling Catheter - Exam Abdomen: Soft, mild distention, dressing clean and dry, ostomy function - Labs CBC & Chem 7: 08/30/20 06:09 08/30/20 06:09 Labs: Abnormal Lab Results - Last 24 Hours (Table) 08/29/20 08/29/20 08/30/20 Range/Units 16:54 22:33 04:18 WBC (3.8-10.6) k/uL RBC (3.80-5.40) m/uL Hgb (11.4-16.0) gm/dL Hct (34.0-46.0) % MCH (25.0-35.0) pg MCHC (31.0-37.0) g/dL RDW (11.5-15.5) % Neutrophils # (1.3-7.7) k/uL APTT 38.5 H (22.0-30.0) sec BUN (7-17) mg/dL Glucose (74-99) mg/dL POC Glucose (mg/dL) 168 H 125 H (75-99) mg/dL Iron (50-170) ug/dL TIBC (228-460) ug/dL % Saturation (12.00-45.00) Ferritin (10.0-291.0) ng/mL Vitamin B12 (200.0-944.0) pg/mL 08/30/20 08/30/20 08/30/20 Range/Units 06:09 06:09 06:09 WBC 14.7 H (3.8-10.6) k/uL RBC 3.28 L (3.80-5.40) m/uL Hgb 7.7 L (11.4-16.0) gm/dL Hct 26.6 L (34.0-46.0) % MCH 23.4 L (25.0-35.0) pg MCHC 28.8 L (31.0-37.0) g/dL RDW 16.5 H (11.5-15.5) % Neutrophils # 12.9 H (1.3-7.7) k/uL APTT 41.3 H (22.0-30.0) sec BUN (7-17) mg/dL Glucose (74-99) mg/dL POC Glucose (mg/dL) (75-99) mg/dL Iron 12 L (50-170) ug/dL TIBC 185 L (228-460) ug/dL % Saturation 6.49 L (12.00-45.00) Ferritin 1068.3 H (10.0-291.0) ng/mL Vitamin B12 1031.0 H (200.0-944.0) pg/mL 08/30/20 08/30/20 Range/Units 06:09 11:51 WBC (3.8-10.6) k/uL RBC (3.80-5.40) m/uL Hgb (11.4-16.0) gm/dL Hct (34.0-46.0) % MCH (25.0-35.0) pg MCHC (31.0-37.0) g/dL RDW (11.5-15.5) % Neutrophils # (1.3-7.7) k/uL APTT (22.0-30.0) sec BUN 22 H (7-17) mg/dL Glucose 122 H (74-99) mg/dL POC Glucose (mg/dL) 111 H (75-99) mg/dL Iron (50-170) ug/dL TIBC (228-460) ug/dL % Saturation (12.00-45.00) Ferritin (10.0-291.0) ng/mL Vitamin B12 (200.0-944.0) pg/mL Microbiology - Last 24 Hours (Table) 08/28/20 09:30 Blood Culture - Preliminary Blood No Growth after 48 hours 08/28/20 09:17 Blood Culture - Preliminary Blood No Growth after 48 hours 08/23/20 20:43 Blood Culture - Final Blood No Growth after 144 hours 08/23/20 13:00 Blood Culture - Final Blood No Growth after 144 hours 08/23/20 13:02 Blood Culture - Final Blood No Growth after 144 hours 08/28/20 10:45 Urine Culture - Final Urine,Voided Assessment and Plan (1) Proctitis Narrative/Plan: Continue full liquid diet. Monitor leukocytosis. Continue antibiotics. Increase activity with physical therapy. Current Visit: Yes Status: Acute Code(s): K62.89 - OTHER SPECIFIED DISEASES OF ANUS AND RECTUM SNOMED Code(s): 3330435
--- NOTE | 2020-08-30 13:40 | PN ---
PROGRESS NOTE DATE OF SERVICE: 08/30/2020 This 45-year-old woman was admitted with abdominal pain with locally advanced cervical cancer, had abdominal surgery and diverting colostomy. The patient had acute hypoxic respiratory failure possibly multifactorial including acute pulmonary embolism. The patient is noncompliant with the treatment. At this time the patient is also complaining of severe pain. The most recent chest x-ray did show some atelectasis, reviewed personally by me. Otherwise, the patient had some tachycardia. PAST MEDICAL HISTORY: Reviewed. REVIEW OF SYSTEMS: CARDIOVASCULAR SYSTEM: No angina or palpitations. RESPIRATIONS: As mentioned earlier. GI: As mentioned. as mentioned earlier. NERVOUS SYSTEM: No numbness or weakness. CURRENT MEDICATIONS: Reviewed and include: Tylenol, DuoNeb, benzocaine, cefepime, Flexeril, Duragesic patch. The rest of medications reviewed. PHYSICAL EXAMINATION: Patient is alert, oriented times three. Pulse is 110, blood pressure 133/84, respiration 20, temperature 99.2, pulse ox 92% on 5 L. HEENT: Conjunctivae normal. NECK: No JVD. CARDIOVASCULAR: S1, S2 muffled. RESPIRATIONS: Breath sounds diminished in the bases. A few scattered rhonchi. ABDOMEN: Soft, status post surgery. LEGS: No edema. No swelling. NERVOUS SYSTEM: No focal deficits. LABORATORY DATA: WBC 14.7, hemoglobin 7.7. APTT 41.3 and vitamin B12 and ferritin level increased. ABGs noted. ASSESSMENT: 1. Abdominal pain with locally advanced cervical cancer, status post abdominal surgery and diverting colostomy, awaiting definitive treatment. 2. Acute hypoxic respiratory failure multifactorial possibly. 3. Acute pulmonary embolism, possibly. 4. Stage IIIB to IV squamous cell carcinoma of the cervix. 5. Diphtheroid species from the blood cultures initially. 6. Acute urinary tract infection with sepsis present on admission. 7. Acute respiratory acidosis. 8. Elevated D-dimer. 9. Urinary obstruction hydronephrosis and possible stent malfunction. 10.History of recent MediPort placement. 11.Acute renal injury. 12.Acute blood loss anemia. 13.Shortness of breath possibly chronic obstructive pulmonary disease acute exacerbation. 14.Pain management. 15.Anemia multifactorial. 16.Acute pain syndrome secondary to malignancy, possibly. RECOMMENDATIONS AND DISCUSSION: Recommend to continue current management. Symptomatic treatment. Otherwise, continue the bronchodilators. Repeat labs. Continue the empiric antibiotics. The patient had diphtheroids species sepsis on August 14 after that the cultures were negative. We will continue to monitor. Prognosis guarded. Further recommendations to follow. MMODL / IJN: [id number] /
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
[2020-08-30] MEDS: ONDANSETRON 4 MG/2 ML VIAL IVP PRN (16:56)
--- NOTE | 2020-08-30 19:12 | PN ---
PROGRESS NOTE DATE OF SERVICE: 08/30/2020 REASON FOR FOLLOWUP: UTI and proctitis. INTERVAL HISTORY: The patient is afebrile. The patient is complaining of pain to the lower back area. She denies having any chest pain. Occasional cough. PHYSICAL EXAMINATION: VITAL SIGNS: Blood pressure 133/85, pulse of 115, temperature 98.2. She is 99% on 5 liters nasal cannula. GENERAL DESCRIPTION: A middle-aged female lying in bed in no distress. RESPIRATORY SYSTEM: Unlabored breathing, clear to auscultation anteriorly. HEART: S1, S2. Regular rate and rhythm. ABDOMEN: Soft, mildly distended and tender to touch. LABS: Hemoglobin is 7.1, white count 14.7, BUN of 22, creatinine 0.96. DIAGNOSTIC IMPRESSION AND PLAN: Patient with complicated UTI and proctitis. Did have a metastatic cervical cancer, status post diverting colostomy. The patient is on cefepime and Flagyl. Prognosis remains to be guarded. Continue supportive care. MMODL / IJN: [id number] /
[2020-08-30 20:27] LABS: Glucose,Whole Blood 122 mg/dL (75-99)
[2020-08-30] MEDS: METOPROLOL TARTRATE 12.5 MG TAB PO SCH (20:53)
[2020-08-31] MEDS: HEPARIN SOD,PORK IN 0.45% NACL 25,000 UNIT in 0.45% NACL 1 250ML.BAG IV SCH ×2 (01:49→12:59)
[2020-08-31] MEDS: HYDROmorphone 1 MG/ML 1 ML SYRINGE IVP PRN ×4 (02:57→22:32)
[2020-08-31] MEDS: HYDROmorphone 2 MG TAB PO PRN ×6 (04:05→21:01)
[2020-08-31] MEDS: ONDANSETRON 4 MG/2 ML VIAL IVP PRN ×3 (04:13→23:45)
[2020-08-31] MEDS: IPRATROPIUM-ALBUTEROL 3 ML NEB INHALATION SCH ×3 (07:21→19:19)
[2020-08-31] MEDS: metroNIDAZOLE-NS PMX 500 MG in SALINE 1 100ML.BAG IVPB SCH ×3 (07:47→23:45)
[2020-08-31] MEDS: PANTOPRAZOLE 40 MG/10 ML VIAL IVP SCH ×2 (07:47→21:02)
[2020-08-31] MEDS: METOPROLOL TARTRATE 12.5 MG TAB PO SCH ×2 (07:47→21:01)
[2020-08-31 09:23] LABS: Anisocytosis Slight; Basophils # (A) 0.1 k/uL (0-0.2); Basophils % (A) 0 %; Eosinophils # (A) 0.1 k/uL (0-0.7); Eosinophils % (A) 1 %; HCT 25.9 % (34.0-46.0); HGB 8.1 gm/dL (11.4-16.0); Hypochromasia Marked; Lymphocytes # (A) 1.1 k/uL (1.0-4.8); Lymphocytes % (A) 7 %; MCH 24.6 pg (25.0-35.0); MCHC 31.4 g/dL (31.0-37.0); MCV 78.4 fL (80.0-100.0); Mean Platelet Volume 9.1; Microcytosis Slight; Monocytes # (A) 0.7 k/uL (0-1.0); Monocytes % (A) 4 %; Neutrophils % (A) 86 %; Platelet Count 189 k/uL (150-450); RDW 17.6 % (11.5-15.5); WBC 16.2 k/uL (3.8-10.6)
[2020-08-31 09:38] LABS: African American GFR (CKD) 83 (>60 ml/min/1.73 sqM); Anion Gap 9 mmol/L; Blood Urea Nitrogen 18 mg/dL (7-17); Calcium 8.1 mg/dL (8.4-10.2); Carbon Dioxide 25 mmol/L (22-30); Chloride 103 mmol/L (98-107); Glucose 113 mg/dL (74-99); Non-African American GFR(CKD) 72 (>60 ml/min/1.73 sqM); Sodium 137 mmol/L (137-145)
[2020-08-31] MEDS: CEFEPIME 2 GM in SODIUM CHLORIDE 0.9% 100 ML IVPB SCH ×2 (10:18→21:02)
--- NOTE | 2020-08-31 11:15 | P.PN ---
Subjective Progress Note Date: 08/31/20 patient was complaining of feeling quite sore in her back. she did not appear in obvious distress. She continues on 5-6 L of oxygen. Inspiratory effort is poor. Generalized weakness persists. Objective - Vital Signs Vital signs: Vital Signs Temp 98.8 F 08/31/20 04:38 Pulse 106 H 08/31/20 09:27 Resp 20 08/31/20 09:27 BP 138/91 08/31/20 09:27 Pulse Ox 98 08/31/20 09:27 Intake & Output 08/30/20 08/31/20 08/31/20 18:59 06:59 18:59 Intake Total 1876.922 150.309 202.189 Output Total 1550 1600 Balance 326.922 -1449.691 202.189 Intake: IV 200 Cefepime 2 gm In Sodium 100 Chloride 0.9% 100 ml @ 200 mls/hr IVPB Q12H [facility] Rx#:[id number] metroNIDAZOLE-NS PMX 500 100 mg In Saline 1 100ml.bag @ 100 mls/hr IVPB Q8HR [facility] Rx#:[id number] Intake, IV Titration 826.922 150.309 202.189 Amount Heparin Sod,Pork in 0.45% 326.922 150.309 202.189 NaCl 25,000 unit In 0.45 % NaCl 1 250ml.bag @ 10. 626 UNITS/KG/HR 9.999 mls /hr IV .Q24H [facility] Rx#: [id number] Sodium Chloride 0.9% 1, 500 000 ml @ 50 mls/hr IV . Q20H [facility] Rx#:[id number] Oral 850 Output: Urine 1350 1600 Stool 200 Other: Voiding Method Indwelling Catheter Indwelling Catheter - Constitutional General appearance: Present: no acute distress - EENT Eyes: Present: EOMI ENT: Present: hearing grossly normal, normal oropharynx - Respiratory Respiratory: bilateral: diminished - Cardiovascular Rhythm: regular Heart sounds: normal: S1, S2 - Gastrointestinal Gastrointestinal Comment(s): Left lower quadrant ostomy, with soft brown stool General gastrointestinal: Present: normal bowel sounds, soft - Integumentary Integumentary: Present: normal - Neurologic Neurologic: Present: CNII-XII intact - Musculoskeletal Musculoskeletal: Present: generalized weakness, strength equal bilaterally - Psychiatric Psychiatric: Present: A&O x's 3 - Labs CBC & Chem 7: 08/31/20 08:46 08/31/20 08:46 Labs: Abnormal Lab Results - Last 24 Hours (Table) 08/30/20 08/30/20 08/30/20 Range/Units 11:51 15:58 20:26 WBC (3.8-10.6) k/uL RBC (3.80-5.40) m/uL Hgb (11.4-16.0) gm/dL Hct (34.0-46.0) % MCV (80.0-100.0) fL MCH (25.0-35.0) pg RDW (11.5-15.5) % Neutrophils # (1.3-7.7) k/uL APTT 40.7 H (22.0-30.0) sec BUN (7-17) mg/dL Glucose (74-99) mg/dL POC Glucose (mg/dL) 111 H 122 H (75-99) mg/dL Calcium (8.4-10.2) mg/dL 08/31/20 08/31/20 08/31/20 Range/Units 00:47 08:46 08:46 WBC 16.2 H (3.8-10.6) k/uL RBC 3.30 L (3.80-5.40) m/uL Hgb 8.1 L (11.4-16.0) gm/dL Hct 25.9 L (34.0-46.0) % MCV 78.4 L (80.0-100.0) fL MCH 24.6 L (25.0-35.0) pg RDW 17.6 H (11.5-15.5) % Neutrophils # 14.0 H (1.3-7.7) k/uL APTT 46.6 H (22.0-30.0) sec BUN 18 H (7-17) mg/dL Glucose 113 H (74-99) mg/dL POC Glucose (mg/dL) (75-99) mg/dL Calcium 8.1 L (8.4-10.2) mg/dL 08/31/20 Range/Units 08:46 WBC (3.8-10.6) k/uL RBC (3.80-5.40) m/uL Hgb (11.4-16.0) gm/dL Hct (34.0-46.0) % MCV (80.0-100.0) fL MCH (25.0-35.0) pg RDW (11.5-15.5) % Neutrophils # (1.3-7.7) k/uL APTT 70.2 H (22.0-30.0) sec BUN (7-17) mg/dL Glucose (74-99) mg/dL POC Glucose (mg/dL) (75-99) mg/dL Calcium (8.4-10.2) mg/dL Microbiology - Last 24 Hours (Table) 08/28/20 09:30 Blood Culture - Preliminary Blood No Growth after 48 hours 08/28/20 09:17 Blood Culture - Preliminary Blood No Growth after 48 hours Assessment and Plan (1) Acute respiratory failure Narrative/Plan: patient continues on IV heparin. She continues to require 5-6 L of oxygen by nasal cannula. Infection workup was negative. She has been afebrile. - Case was discussed with pulmonary medicine. They feel that given the CT appearance, the PET finding is definitely questionable. However it would be impossible to definitely rule out either. the patient is continuing on IV heparin, with stable hemoglobin. Given the patient's high risk, with locally advanced cancer, and very poor mobility On one hand, and reasonable tolerance of IV heparin without evidence of progressive bleeding on the other, it was felt at this time, based on risk benefit to continue anticoagulation. Patient was switched over to orals with with the a DOAC Current Visit: Yes Status: Acute Code(s): J96.00 - ACUTE RESPIRATORY FAILU RE, UNSP W HYPOXIA OR HYPERCAPNIA SNOMED Code(s): 77580666 (2) Cervical cancer Narrative/Plan: As noted before, the patient has locally advanced cancer but is a candidate for definitive treatment based on the stage. Unfortunately she is not a candidate for any aggressive treatment at this time because of very poor performance status, as well as recent abdominal surgery. - It was again emphasized to the patient, that for treatment of performance status needs to improve. Therefore it is essential that she continues to work with physical therapy, and with incentive spirometry - case is also been discussed with the admitting service about possibility of subacute rehab prior to starting definitive therapy Current Visit: Yes Status: Acute Code(s): C53.9 - MALIGNANT NEOPLASM OF CERVIX UTERI, UNSPECIFIED SNOMED Code(s): 283646263 (3) Anemia Narrative/Plan: this has remained stable in the 7-8 range on IV heparin. Continue to monitor. Transfuse for less than 7 Current Visit: Yes Status: Acute Code(s): D64.9 - ANEMIA, UNSPECIFIED SNOMED Code(s): 829349395
--- NOTE | 2020-08-31 11:20 | P.PN ---
Subjective Progress Note Date: 08/31/20 Principal diagnosis: Proctitis Patient still having abdominal discomforts. Also complains of left flank pain. T-max 99.2. Mild tachycardia. WBC 16.2 today. She ate about 25-50% of her breakfast. No vomiting. Some nausea. She feels bloated. She is having ostomy function. Objective - Vital Signs Vital signs: Vital Signs Temp 98.8 F 08/31/20 04:38 Pulse 106 H 08/31/20 09:27 Resp 20 08/31/20 09:27 BP 138/91 08/31/20 09:27 Pulse Ox 98 08/31/20 09:27 Intake & Output 08/30/20 08/31/20 08/31/20 18:59 06:59 18:59 Intake Total 1876.922 150.309 202.189 Output Total 1550 1600 Balance 326.922 -1449.691 202.189 Intake: IV 200 Cefepime 2 gm In Sodium 100 Chloride 0.9% 100 ml @ 200 mls/hr IVPB Q12H [facility] Rx#:[id number] metroNIDAZOLE-NS PMX 500 100 mg In Saline 1 100ml.bag @ 100 mls/hr IVPB Q8HR [facility] Rx#:[id number] Intake, IV Titration 826.922 150.309 202.189 Amount Heparin Sod,Pork in 0.45% 326.922 150.309 202.189 NaCl 25,000 unit In 0.45 % NaCl 1 250ml.bag @ 10. 626 UNITS/KG/HR 9.999 mls /hr IV .Q24H [facility] Rx#: [id number] Sodium Chloride 0.9% 1, 500 000 ml @ 50 mls/hr IV . Q20H [facility] Rx#:[id number] Oral 850 Output: Urine 1350 1600 Stool 200 Other: Voiding Method Indwelling Catheter Indwelling Catheter - Exam Abdomen: Soft, mild distention, dressing clean dry, ostomy functioning - Labs CBC & Chem 7: 08/31/20 08:46 08/31/20 08:46 Labs: Abnormal Lab Results - Last 24 Hours (Table) 08/30/20 08/30/20 08/30/20 Range/Units 11:51 15:58 20:26 WBC (3.8-10.6) k/uL RBC (3.80-5.40) m/uL Hgb (11.4-16.0) gm/dL Hct (34.0-46.0) % MCV (80.0-100.0) fL MCH (25.0-35.0) pg RDW (11.5-15.5) % Neutrophils # (1.3-7.7) k/uL APTT 40.7 H (22.0-30.0) sec BUN (7-17) mg/dL Glucose (74-99) mg/dL POC Glucose (mg/dL) 111 H 122 H (75-99) mg/dL Calcium (8.4-10.2) mg/dL 08/31/20 08/31/20 08/31/20 Range/Units 00:47 08:46 08:46 WBC 16.2 H (3.8-10.6) k/uL RBC 3.30 L (3.80-5.40) m/uL Hgb 8.1 L (11.4-16.0) gm/dL Hct 25.9 L (34.0-46.0) % MCV 78.4 L (80.0-100.0) fL MCH 24.6 L (25.0-35.0) pg RDW 17.6 H (11.5-15.5) % Neutrophils # 14.0 H (1.3-7.7) k/uL APTT 46.6 H (22.0-30.0) sec BUN 18 H (7-17) mg/dL Glucose 113 H (74-99) mg/dL POC Glucose (mg/dL) (75-99) mg/dL Calcium 8.1 L (8.4-10.2) mg/dL 08/31/20 Range/Units 08:46 WBC (3.8-10.6) k/uL RBC (3.80-5.40) m/uL Hgb (11.4-16.0) gm/dL Hct (34.0-46.0) % MCV (80.0-100.0) fL MCH (25.0-35.0) pg RDW (11.5-15.5) % Neutrophils # (1.3-7.7) k/uL APTT 70.2 H (22.0-30.0) sec BUN (7-17) mg/dL Glucose (74-99) mg/dL POC Glucose (mg/dL) (75-99) mg/dL Calcium (8.4-10.2) mg/dL Microbiology - Last 24 Hours (Table) 08/28/20 09:30 Blood Culture - Preliminary Blood No Growth after 48 hours 08/28/20 09:17 Blood Culture - Preliminary Blood No Growth after 48 hours Assessment and Plan (1) Proctitis Narrative/Plan: Patient still having mild discomfort and nausea. Continue full liquids. Increase activity levels. Current Visit: Yes Status: Acute Code(s): K62.89 - OTHER SPECIFIED DISEASES OF ANUS AND RECTUM SNOMED Code(s): 5658708
[2020-08-31 12:08] LABS: Glucose,Whole Blood 145 mg/dL (75-99)
[2020-08-31] MEDS: CYCLOBENZAPRINE 5 MG TAB PO PRN (13:53)
[2020-08-31] MEDS: SODIUM CHLORIDE 0.9% 1,000 ML IV SCH (15:53)
[2020-08-31] MEDS: NYSTATIN 100,000 UNIT/ML SUSP 500,000 UNIT/5 ML CUP PO SCH ×3 (15:53→21:02)
[2020-08-31 17:41] LABS: Glucose,Whole Blood 122 mg/dL (75-99)
--- NOTE | 2020-08-31 18:27 | PN ---
PROGRESS NOTE DATE OF SERVICE: 08/31/2020 INTERVAL HISTORY: This is a 45-year-old woman was admitted with multiple medical problems including abdominal pain, locally advanced cervical cancer, also had significant shortness of breath which is multifactorial including COPD, asthma, pulmonary embolism. Patient on IV heparin at this time. The patient closely monitored by multiple consultants. Lab showed WBC 16.2, hemoglobin is 8.1. The blood culture showed diphtheroids previously, but the most recent cultures are negative. No chest pain. No palpitations. No fever. PAST MEDICAL HISTORY: Reviewed. REVIEW OF SYSTEMS: CARDIOVASCULAR: No angina. RESPIRATORY: As mentioned earlier. GI: As mentioned earlier. : No dysuria. NERVOUS SYSTEM: No numbness or weakness. CURRENT MEDICATIONS: Reviewed include Tylenol, DuoNeb, benzocaine, cefepime, Duragesic patch. The rest of medications are noted. PHYSICAL EXAMINATION: GENERAL: Patient is alert and oriented times three. VITAL SIGNS: Pulse 114, blood pressure 130/84, respirations 20, temperature normal, pulse ox 94% on 6 liters. HEENT: Conjunctivae normal. Oral mucosa moist. NECK: No jugular venous distention. No carotid bruits. No lymph node enlargement. RESPIRATORY: Breath sounds diminished at the bases. A few scattered rhonchi and crackles. Inspiratory wheeze also present. HEART: S1 and S2, muffled. ABDOMEN: Soft, no tenderness. No masses palpable. EXTREMITIES: No edema, no swelling. LAB STUDIES: WBC 16.2, hemoglobin is 8.1. ASSESSMENT: 1. Abdominal pain with locally advanced cervical cancer, status post abdominal surgery and diverting colostomy, awaiting definitive treatment. 2. Acute hypoxic respiratory failure with multifactorial, possibly. 3. Acute pulmonary embolism, possibly. 4. 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 5. Tachycardia, possibly sinus. 6. Diphtheroids species from the blood culture initially, most recent cultures negative. 7. Acute urinary tract infection with sepsis present on admission. 8. Respiratory acidosis. 9. Elevated D-dimer. 10.Urinary obstruction and hydronephrosis with possible stent malfunction present on admission. 11.History of recent MediPort placement. 12.Acute renal injury. 13.Acute blood loss anemia. 14.Shortness of breath possibly chronic obstructive pulmonary disease acute exacerbation. 15.Pain management. 16.Anemia multifactorial. 17.Acute pain syndrome secondary to malignancy, possibly. RECOMMENDATIONS AND DISCUSSION: I recommend to continue current management and continue symptomatic treatment. Otherwise at this time I recommend continue the bronchodilators. Increase the dose of Lopressor 12.5 twice daily and hold if the blood pressure is low. Continue the rest of medications. Continue with IV heparin. Prognosis guarded. Further recommendations to follow. MMDESTINL / IJN: [id number] /
[2020-08-31] MEDS: LORazepam 0.5 MG TAB PO PRN (19:13)
--- NOTE | 2020-08-31 21:53 | PN ---
PROGRESS NOTE DATE OF SERVICE: 08/31/2020 REASON FOR FOLLOWUP: Complicated UTI and colitis. INTERVAL HISTORY: Patient is afebrile, complaining of shortness of breath. Denies any chest pain though. Did have a cough. Some abdominal discomfort. No vomiting. Did have output in the bag per the nursing staff. PHYSICAL EXAMINATION: Blood pressure 130/85 with a pulse of 140. Temperature 97.7. She is 95% on 6 L nasal cannula. General description is a middle-aged female lying in bed in no distress. Respiratory system: Unlabored breathing, decreased breath sounds in the base. No wheeze. Heart S1, S2. Regular rate and rhythm. Abdomen soft, distended. No guarding. No rigidity. LABS: Hemoglobin 8.1, white count of 16.2, BUN of 18, creatinine 0.97. DIAGNOSTIC IMPRESSION AND PLAN: Patient with metastatic cervical cancer with bilateral hydronephrosis and obstructing rectal tumor status post diverting colostomy. The patient is covered with cefepime, Flagyl with evidence of pulmonary embolism and has been on heparin. Noticed to have slight worsening of the white count that will be monitored closely. Culture will be repeated and continue supportive care. MMODL / IJN: [id number] /
[2020-08-31] MEDS ORDERED: METOPROLOL TARTRATE 25 MG TAB PO STA (23:38)
[2020-09-01] MEDS: HYDROmorphone 2 MG TAB PO PRN ×3 (00:02→23:42)
[2020-09-01 01:04] LABS: Glucose,Whole Blood 152 mg/dL (75-99)
[2020-09-01] MEDS: HEPARIN SOD,PORK IN 0.45% NACL 25,000 UNIT in 0.45% NACL 1 250ML.BAG IV SCH (01:22)
[2020-09-01] MEDS ORDERED: LORazepam 2 MG/ML INJ IV STA (01:58)
[2020-09-01] MEDS: SODIUM CHLORIDE 0.9% 1,000 ML IV SCH ×2 (03:43→23:47)
[2020-09-01] MEDS: IPRATROPIUM-ALBUTEROL 3 ML NEB INHALATION SCH ×4 (07:24→20:00)
[2020-09-01] MEDS: METOPROLOL TARTRATE 12.5 MG TAB PO SCH ×2 (08:15→20:17)
[2020-09-01] MEDS: NYSTATIN 100,000 UNIT/ML SUSP 500,000 UNIT/5 ML CUP PO SCH ×4 (08:15→20:18)
[2020-09-01] MEDS: PANTOPRAZOLE 40 MG/10 ML VIAL IVP SCH (08:15)
[2020-09-01] MEDS: metroNIDAZOLE-NS PMX 500 MG in SALINE 1 100ML.BAG IVPB SCH (08:15)
[2020-09-01] MEDS: HYDROmorphone 1 MG/ML 1 ML SYRINGE IVP PRN (09:27)
[2020-09-01 09:39] LABS: Anisocytosis Slight; Basophils % (A) 0 %; Eosinophils # (A) 0.1 k/uL (0-0.7); Eosinophils % (A) 1 %; HCT 26.2 % (34.0-46.0); HGB 7.9 gm/dL (11.4-16.0); Hypochromasia Marked; Lymphocytes # (A) 1.2 k/uL (1.0-4.8); Lymphocytes % (A) 8 %; MCH 23.6 pg (25.0-35.0); MCV 78.5 fL (80.0-100.0); Mean Platelet Volume 9.3; Microcytosis Slight; Monocytes # (A) 0.6 k/uL (0-1.0); Monocytes % (A) 4 %; Neutrophils # (A) 13.4 k/uL (1.3-7.7); Neutrophils % (A) 86 %; Platelet Count 203 k/uL (150-450); RBC 3.34 m/uL (3.80-5.40); RDW 17.5 % (11.5-15.5); WBC 15.7 k/uL (3.8-10.6)
[2020-09-01 09:45] LABS: ALT 24 U/L (4-34); AST 63 U/L (14-36); African American GFR (CKD) 78 (>60 ml/min/1.73 sqM); Albumin 2.7 g/dL (3.5-5.0); Albumin/Globulin Ratio 0.7; Alkaline Phosphatase 630 U/L (38-126); Anion Gap 7 mmol/L; Blood Urea Nitrogen 22 mg/dL (7-17); Calcium 8.1 mg/dL (8.4-10.2); Carbon Dioxide 25 mmol/L (22-30); Chloride 105 mmol/L (98-107); Globulin 3.8 g/dL; Glucose 120 mg/dL (74-99); Non-African American GFR(CKD) 67 (>60 ml/min/1.73 sqM); Sodium 137 mmol/L (137-145); Total Bilirubin 0.7 mg/dL (0.2-1.3); Total Protein 6.5 g/dL (6.3-8.2)
[2020-09-01] MEDS ORDERED: LORazepam 2 MG/ML INJ IV PRN (10:45)
[2020-09-01] MEDS: CEFEPIME 2 GM in SODIUM CHLORIDE 0.9% 100 ML IVPB SCH (11:08)
[2020-09-01] MEDS: ACETAMINOPHEN TAB 325 MG TAB PO PRN (11:22)
[2020-09-01 11:50] LABS: Glucose,Whole Blood 127 mg/dL (75-99)
[2020-09-01 12:13] LABS: Glucose,Whole Blood 113 mg/dL (75-99)
[2020-09-01] MEDS ORDERED: NALOXONE 0.4 MG/ML 1 ML VIAL IVP STA ×3 (12:24→12:36)
[2020-09-01] MEDS: ONDANSETRON 4 MG/2 ML VIAL IVP PRN (12:27)
[2020-09-01 12:29] LABS: ABG Base Excess 3.2 mmol/L; ABG HCO3 26 mmol/L (21-25); ABG Oxygen Saturation 99.2 % (94-97); ABG PCO2 31 mmHg (35-45); ABG PH 7.53 (7.35-7.45); ABG PO2 136 mmHg (83-108); ABG TCO2 27 mmol/L (19-24); Allen Test Performed? Yes
[2020-09-01] MEDS ORDERED: NALOXONE 0.4 MG/ML 1 ML VIAL IVP PRN (12:43)
[2020-09-01] MEDS ORDERED: APIXABAN 5 MG TAB PO SCH (12:45)
[2020-09-01 12:56] LABS: ABG Base Excess 3.2 mmol/L; ABG HCO3 26 mmol/L (21-25); ABG PCO2 31 mmHg (35-45); ABG PH 7.53 (7.35-7.45); ABG PO2 136 mmHg (83-108); ABG TCO2 27 mmol/L (19-24); Allen Test Performed? Yes
--- NOTE | 2020-09-01 13:10 | XR ---
EXAMINATION TYPE: XR chest 1V portable DATE OF EXAM: 09/01/2020 COMPARISON: 08/30/2020 HISTORY: Respiratory distress TECHNIQUE: Single frontal view of the chest is obtained. FINDINGS: Mediport catheter seen is bilateral infiltrate and pleural effusion. No pneumothorax. Diff use osteopenia. Heart size mildly prominent. IMPRESSION: Bilateral lower lobe infiltrate and small effusion.
[2020-09-01] MEDS ORDERED: VANCOMYCIN IV PER PHARMACY 1 EACH MISC MISCELLANE PRN (13:38)
--- NOTE | 2020-09-01 13:51 | P.PN ---
Subjective Progress Note Date: 09/01/20 CHIEF COMPLAINT: Near obstructing rectal mass HISTORY OF PRESENT ILLNESS: Surgical service is following regards to patient's rectal mass. She is status post diverting colostomy for obstructing rectal mass . Patient is on a regular medical floor. Her ostomy is functioning. She did have a temp 100. This morning she was requiring 15 L Ventimask heart rate 117. WBC down from 16.2-15.7. She is on antibiotics. Pulmonary service is following. Patient is obtunded today after receiving Dilaudid this morning. She did require a dose of Narcan. Chest x-ray bilateral lower lobe infiltrate and small effusion Patient seen and examined with Dr. Rivera PHYSICAL EXAM: VITAL SIGNS: Reviewed. GENERAL: Well-developed in no acute distress. HEENT: No sclera icterus. Extraocular movements grossly intact. Moist buccal mucosa. Head is atraumatic, normocephalic. ABDOMEN: Soft. Colostomy on left abdomen service sanguinous drainage noted. NEUROLOGIC: Obtunded ASSESSMENT: 1. Near obstructing rectal mass status post diverting colostomy 2. Metastatic cervical cancer PLAN: -Surgical service will sign off. We'll have patient follow-up in 14 days for staple removal -Please call with any questions or concerns -Continue supportive care -Antibiotics per ID -GI prophylaxis Pepcid and DVT prophylaxis Lovenox Physician Physical Meteorologist note has been reviewed by physician. Signing provider agrees with the documented findings, assessment, and plan of care. Objective - Vital Signs Vital signs: Vital Signs Temp 99.5 F 09/01/20 11:16 Pulse 107 H 09/01/20 11:16 Resp 20 09/01/20 13:18 BP 134/90 09/01/20 11:16 Pulse Ox 97 09/01/20 12:47 Intake & Output 08/31/20 09/01/20 09/01/20 18:59 06:59 18:59 Intake Total 250.000 250 217.172 Output Total 2200 1400 Balance -1950.000 250 -1182.828 Weight 94.1 kg Intake: Intake, IV Titration 250.000 250 217.172 Amount Heparin Sod,Pork in 0.45% 250.000 250 217.172 NaCl 25,000 unit In 0.45 % NaCl 1 250ml.bag @ 10. 626 UNITS/KG/HR 9.999 mls /hr IV .Q24H [facility] Rx#: [id number] Output: Urine 2200 900 Stool 500 Other: Voiding Method Indwelling Catheter Indwelling Catheter - Labs CBC & Chem 7: 09/01/20 08:50 09/01/20 08:50 Labs: Abnormal Lab Results - Last 24 Hours (Table) 08/30/20 08/31/20 08/31/20 Range/Units 06:09 17:39 18:43 WBC (3.8-10.6) k/uL RBC (3.80-5.40) m/uL Hgb (11.4-16.0) gm/dL Hct (34.0-46.0) % MCV (80.0-100.0) fL MCH (25.0-35.0) pg MCHC (31.0-37.0) g/dL RDW (11.5-15.5) % Neutrophils # (1.3-7.7) k/uL APTT 64.4 H (22.0-30.0) sec ABG pH (7.35-7.45) ABG pCO2 (35-45) mmHg ABG pO2 (83-108) mmHg ABG HCO3 (21-25) mmol/L ABG Total CO2 (19-24) mmol/L ABG O2 Saturation (94-97) % BUN (7-17) mg/dL Glucose (74-99) mg/dL POC Glucose (mg/dL) 122 H (75-99) mg/dL Calcium (8.4-10.2) mg/dL AST (14-36) U/L Alkaline Phosphatase (38-126) U/L Albumin (3.5-5.0) g/dL RBC Folate 1,050 H (280 - 791) ng/mL 09/01/20 09/01/20 09/01/20 Range/Units 01:00 01:14 08:50 WBC 15.7 H (3.8-10.6) k/uL RBC 3.34 L (3.80-5.40) m/uL Hgb 7.9 L (11.4-16.0) gm/dL Hct 26.2 L (34.0-46.0) % MCV 78.5 L (80.0-100.0) fL MCH 23.6 L (25.0-35.0) pg MCHC 30.0 L (31.0-37.0) g/dL RDW 17.5 H (11.5-15.5) % Neutrophils # 13.4 H (1.3-7.7) k/uL APTT 61.5 H (22.0-30.0) sec ABG pH (7.35-7.45) ABG pCO2 (35-45) mmHg ABG pO2 (83-108) mmHg ABG HCO3 (21-25) mmol/L ABG Total CO2 (19-24) mmol/L ABG O2 Saturation (94-97) % BUN (7-17) mg/dL Glucose (74-99) mg/dL POC Glucose (mg/dL) 152 H (75-99) mg/dL Calcium (8.4-10.2) mg/dL AST (14-36) U/L Alkaline Phosphatase (38-126) U/L Albumin (3.5-5.0) g/dL RBC Folate (280 - 791) ng/mL 09/01/20 09/01/20 09/01/20 Range/Units 08:50 11:18 12:10 WBC (3.8-10.6) k/uL RBC (3.80-5.40) m/uL Hgb (11.4-16.0) gm/dL Hct (34.0-46.0) % MCV (80.0-100.0) fL MCH (25.0-35.0) pg MCHC (31.0-37.0) g/dL RDW (11.5-15.5) % Neutrophils # (1.3-7.7) k/uL APTT (22.0-30.0) sec ABG pH (7.35-7.45) ABG pCO2 (35-45) mmHg ABG pO2 (83-108) mmHg ABG HCO3 (21-25) mmol/L ABG Total CO2 (19-24) mmol/L ABG O2 Saturation (94-97) % BUN 22 H (7-17) mg/dL Glucose 120 H (74-99) mg/dL POC Glucose (mg/dL) 127 H 113 H (75-99) mg/dL Calcium 8.1 L (8.4-10.2) mg/dL AST 63 H (14-36) U/L Alkaline Phosphatase 630 H (38-126) U/L Albumin 2.7 L (3.5-5.0) g/dL RBC Folate (280 - 791) ng/mL 09/01/20 09/01/20 Range/Units 12:23 12:26 WBC (3.8-10.6) k/uL RBC (3.80-5.40) m/uL Hgb (11.4-16.0) gm/dL Hct (34.0-46.0) % MCV (80.0-100.0) fL MCH (25.0-35.0) pg MCHC (31.0-37.0) g/dL RDW (11.5-15.5) % Neutrophils # (1.3-7.7) k/uL APTT (22.0-30.0) sec ABG pH 7.53 H 7.53 H (7.35-7.45) ABG pCO2 31 L 31 L (35-45) mmHg ABG pO2 136 H 136 H (83-108) mmHg ABG HCO3 26 H 26 H (21-25) mmol/L ABG Total CO2 27 H 27 H (19-24) mmol/L ABG O2 Saturation 99.2 H 99.0 H (94-97) % BUN (7-17) mg/dL Glucose (74-99) mg/dL POC Glucose (mg/dL) (75-99) mg/dL Calcium (8.4-10.2) mg/dL AST (14-36) U/L Alkaline Phosphatase (38-126) U/L Albumin (3.5-5.0) g/dL RBC Folate (280 - 791) ng/mL Microbiology - Last 24 Hours (Table) 08/28/20 09:30 Blood Culture - Preliminary Blood No Growth after 96 hours 08/28/20 09:17 Blood Culture - Preliminary Blood No Growth after 96 hours
--- NOTE | 2020-09-01 13:54 | P.PN ---
Subjective Progress Note Date: 09/01/20 Principal diagnosis: Cervical Cancer Patients oxygenation continues to worsen, appears to require higher supplemental oxygen despite Anticoagulation. On assessment she is pale, hirsch and desaturating in the 70s% with venti mask. Dr. Westfall at bedside at same time and has changed a ntibiotics to meripenum and vANCOMYCIN, orders placed at ID direction. Pulmonary team has also came to assess, A-team at bedside, Narcan given and patient did improve. Spoke to and father who have stated they want to confirm all life saving options are applied if needed. Objective - Vital Signs Vital signs: Vital Signs Temp 98 F 09/01/20 05:00 Pulse 117 H 09/01/20 08:15 Resp 20 09/01/20 08:15 BP 123/77 09/01/20 05:00 Pulse Ox 97 09/01/20 07:24 Intake & Output 08/31/20 09/01/20 09/01/20 18:59 06:59 18:59 Intake Total 250.000 250 217.172 Output Total 2200 600 Balance -1950.000 250 -382.828 Intake: Intake, IV Titration 250.000 250 217.172 Amount Heparin Sod,Pork in 0.45% 250.000 250 217.172 NaCl 25,000 unit In 0.45 % NaCl 1 250ml.bag @ 10. 626 UNITS/KG/HR 9.999 mls /hr IV .Q24H [facility] Rx#: [id number] Output: Urine 2200 500 Stool 100 Other: Voiding Method Indwelling Catheter Indwelling Catheter - Exam - Constitutional General appearance: no acute distress, pale, shalloww breathing, diaphoretic - EENT Eyes: edentulous, PERRLA ENT: hard of hearing - Neck Neck: no lymphadenopathy - Respiratory Respiratory: bilateral: CTA - Cardiovascular Rhythm: regular - Gastrointestinal General gastrointestinaltenderness, Ostomy small amount clear yellow liquid - Integumentary Integumentary: pale, no rash - Neurologic Neurologic: CNII-XII intact - Musculoskeletal Musculoskeletal: strength equal bilaterally - Psychiatric Psychiatric: A&O x's 3, inappropriate affect, lethargic, extremly anxious - Labs CBC & Chem 7: 09/01/20 08:50 09/01/20 08:50 Labs: Abnormal Lab Results - Last 24 Hours (Table) 08/31/20 08/31/20 08/31/20 Range/Units 12:05 17:39 18:43 WBC (3.8-10.6) k/uL RBC (3.80-5.40) m/uL Hgb (11.4-16.0) gm/dL Hct (34.0-46.0) % MCV (80.0-100.0) fL MCH (25.0-35.0) pg MCHC (31.0-37.0) g/dL RDW (11.5-15.5) % Neutrophils # (1.3-7.7) k/uL APTT 64.4 H (22.0-30.0) sec BUN (7-17) mg/dL Glucose (74-99) mg/dL POC Glucose (mg/dL) 145 H 122 H (75-99) mg/dL Calcium (8.4-10.2) mg/dL AST (14-36) U/L Alkaline Phosphatase (38-126) U/L Albumin (3.5-5.0) g/dL 09/01/20 09/01/20 09/01/20 Range/Units 01:00 01:14 08:50 WBC 15.7 H (3.8-10.6) k/uL RBC 3.34 L (3.80-5.40) m/uL Hgb 7.9 L (11.4-16.0) gm/dL Hct 26.2 L (34.0-46.0) % MCV 78.5 L (80.0-100.0) fL MCH 23.6 L (25.0-35.0) pg MCHC 30.0 L (31.0-37.0) g/dL RDW 17.5 H (11.5-15.5) % Neutrophils # 13.4 H (1.3-7.7) k/uL APTT 61.5 H (22.0-30.0) sec BUN (7-17) mg/dL Glucose (74-99) mg/dL POC Glucose (mg/dL) 152 H (75-99) mg/dL Calcium (8.4-10.2) mg/dL AST (14-36) U/L Alkaline Phosphatase (38-126) U/L Albumin (3.5-5.0) g/dL 09/01/20 Range/Units 08:50 WBC (3.8-10.6) k/uL RBC (3.80-5.40) m/uL Hgb (11.4-16.0) gm/dL Hct (34.0-46.0) % MCV (80.0-100.0) fL MCH (25.0-35.0) pg MCHC (31.0-37.0) g/dL RDW (11.5-15.5) % Neutrophils # (1.3-7.7) k/uL APTT (22.0-30.0) sec BUN 22 H (7-17) mg/dL Glucose 120 H (74-99) mg/dL POC Glucose (mg/dL) (75-99) mg/dL Calcium 8.1 L (8.4-10.2) mg/dL AST 63 H (14-36) U/L Alkaline Phosphatase 630 H (38-126) U/L Albumin 2.7 L (3.5-5.0) g/dL Microbiology - Last 24 Hours (Table) 08/28/20 09:30 Blood Culture - Preliminary Blood No Growth after 72 hours 08/28/20 09:17 Blood Culture - Preliminary Blood No Growth after 72 hours Assessment and Plan Plan: Initial presentation with abdominal pain. Diagnosed with cervical cancer in June. She self catheterizes for urinary retention. Admits to Nausea and vomiting as well, which is improved since admission - Patient had bilateral ureteral stents placed on 06/25/2020. IV Antibiotics Cervical Cancer: Near Obstructing Rectal Mass The right ureteral stent appears more inferior than last exam. CT of the abdomen and pelvis: There is some minimal reticular nodular infiltrate at the lung bases. Extensive inflammatory changes in the pelvis with perirectal density measuring up to almost 3 cm in thickness. This is worse than last exam. Consider both inflammatory disease and malignancy. There is bilateral moderate hydronephrosis which appears to same or slightly worse than last exam. Stent m alfunction is possible. There is increased reticular nodular interstitial infiltrate the lung bases compared to old exam. 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 - She has not started treatment Worsening Hypoxia: - CTA was determined to be consistent with pulmonary Emboli, however anticoagulation has not shown improvement. - I have connected with pulmonary, will defer additional imaging, blood gases, antibiotics to them. - Narcan given and has improved oxygenation and mental status. Failure to Thrive: - Psych is following although she is hesistant to work with them - She is refesing working with PT/OT and/or incentive spirometer. Concern for improvement of her condition and ability to treat her progressing cancer given her worsening performance. Discussed with patient, , and father. Unsure if she is comprehending the importance or if other Discussed with pulmonary, ID, RN, A team, Nursing, and patients family. Will mo nitor closely.
--- NOTE | 2020-09-01 14:07 | P.PN ---
Subjective Progress Note Date: 09/01/20 Principal diagnosis: Acute hypoxic respiratory failure This is a 45-year-old white female with known history of locally advanced cervical cancer, who underwent diverging colostomy for a rectal mass with secondary bowel obstruction and abdominal pain on 08/24/2020. Patient was in intensive care unit in the postoperative period. Her chest x-ray in the postoperative period showed some basilar atelectasis. Patient was extubated in the recovery room shortly after her surgery. Patient was also being treated for acute urinary tract infection with a combination of cefepime and Flagyl, the postoperative period patient was having a lot of pain issues requiring increased doses of narcotics and Dilaudid [employer]. CTA chest was obtained on 08/20/2020 showing tiny filling defects within the right upper lobe pulmonary arterial branches and left lower lobe pulmonary arterial branches, possibly related to tiny pulmonary emboli. Lower extremity Dopplers were negative for DVT. Patient was started on heparin infusion. From pulmonary perspective she had been stable, and pulmonary/critical care service had signed off on 08/29/2020. Today on 09/01/2020 we got called back to the bedside for a concern of worsening dyspnea, hypoxia, and altered mental status. Rapid response team was called to the bedside. During our evaluation patient is very lethargic, and she is on 50% Ventimask with a pulse ox of 97-99%, she is barely arousable to painful stimuli, stat chest x-ray was obtained showing bilateral lower lobe infiltrates and small pleural effusion. The nursing staff reports that during the night patient was continuously yelling out and being very agitated, and in addition to her pain medications which included oral Dilaudid 2 mg every 3 hours as needed, IV Dilaudid 1 mg every 6 hours as needed, Flexeril, fentanyl patch 25 mics daily, she had also been given additional doses of Ativan 1 mg at 2:00 in the morning. Since then she was noted to be more lethargic, and more hypoxic requiring increased amount of oxygen. Respiratory depression related to narcotics and benzodiazepines was suspected and the patient was given 3 doses of Narcan 0.5 mg each, she woke up and started becoming more responsive. At that time blood gas was obtained showing pH of 7.53, pCO2 of 31, and pO2 of 136. Initially we were going to put the patient on BiPAP support however as she woke up after the Narcan we decided to hold on that. She did have a elevated temperature last night of 100F, patient had a septic workup done with blood cultures, urinalysis and urine culture, and all the cultures are negative thus far. Since current antibiotic coverage includes meropenem, Flagyl, and vancomycin. Staff reports small amount of vaginal bleeding, patient remains on heparin infusion for possibility of small PEs for the last several days, her last APTT this morning was therapeutic at 61.5, this morning's hemoglobin is 7.9. At this time we can switch patient's heparin infusion to oral Eliquis and continue monitoring for any further bleeding and continue monitoring hemoglobin. Objective - Vital Signs Vital signs: Vital Signs Temp 99.5 F 09/01/20 11:16 Pulse 107 H 09/01/20 11:16 Resp 20 09/01/20 13:18 BP 134/90 09/01/20 11:16 Pulse Ox 97 09/01/20 12:47 Intake & Output 08/31/20 09/01/20 09/01/20 18:59 06:59 18:59 Intake Total 250.000 250 217.172 Output Total 2200 1400 Balance -1950.000 250 -1182.828 Weight 94.1 kg Intake: Intake, IV Titration 250.000 250 217.172 Amount Heparin Sod,Pork in 0.45% 250.000 250 217.172 NaCl 25,000 unit In 0.45 % NaCl 1 250ml.bag @ 10. 626 UNITS/KG/HR 9.999 mls /hr IV .Q24H [facility] Rx#: [id number] Output: Urine 2200 900 Stool 500 Other: Voiding Method Indwelling Catheter Indwelling Catheter - Exam GENERAL EXAM: Somnolent, 45-year-old white female, on 50% Ventimask, arousable to painful stimuli, tachypneic, but satting 99% on 50% Ventimask HEAD: Normocephalic/atraumatic. EYES: Normal reaction of pupils, equal size. Conjunctiva pink, sclera white. NOSE: Clear with pink turbinates. THROAT: No erythema or exudates. NECK: No masses, no JVD, no thyroid enlargement, no adenopathy. CHEST: No chest wall deformity. Symmetrical expansion. LUNGS: Equal air entry with diminished breath sounds at the bases CVS: Regular rate and rhythm, normal S1 and S2, no gallops, no murmurs, no rubs ABDOMEN: Soft, nontender. No hepatosplenomegaly, normal bowel sounds, no guarding or rigidity. EXTREMITIES: No clubbing, no edema, no cyanosis, 2+ pulses and upper and lower extremities. MUSCULOSKELETAL: Muscle strength and tone normal. SPINE: No scoliosis or deformity SKIN: No rashes CENTRAL NERVOUS SYSTEM: Somnolent, but after administration of Narcan patient is more awake, yelling out No focal deficits, tone is normal in all 4 extremities. - Labs CBC & Chem 7: 09/01/20 08:50 09/01/20 08:50 Labs: Abnormal Lab Results - Last 24 Hours (Table) 08/30/20 08/31/20 08/31/20 Range/Units 06:09 17:39 18:43 WBC (3.8-10.6) k/uL RBC (3.80-5.40) m/uL Hgb (11.4-16.0) gm/dL Hct (34.0-46.0) % MCV (80.0-100.0) fL MCH (25.0-35.0) pg MCHC (31.0-37.0) g/dL RDW (11.5-15.5) % Neutrophils # (1.3-7.7) k/uL APTT 64.4 H (22.0-30.0) sec ABG pH (7.35-7.45) ABG pCO2 (35-45) mmHg ABG pO2 (83-108) mmHg ABG HCO3 (21-25) mmol/L ABG Total CO2 (19-24) mmol/L ABG O2 Saturation (94-97) % BUN (7-17) mg/dL Glucose (74-99) mg/dL POC Glucose (mg/dL) 122 H (75-99) mg/dL Calcium (8.4-10.2) mg/dL AST (14-36) U/L Alkaline Phosphatase (38-126) U/L Albumin (3.5-5.0) g/dL RBC Folate 1,050 H (280 - 791) ng/mL 09/01/20 09/01/20 09/01/20 Range/Units 01:00 01:14 08:50 WBC 15.7 H (3.8-10.6) k/uL RBC 3.34 L (3.80-5.40) m/uL Hgb 7.9 L (11.4-16.0) gm/dL Hct 26.2 L (34.0-46.0) % MCV 78.5 L (80.0-100.0) fL MCH 23.6 L (25.0-35.0) pg MCHC 30.0 L (31.0-37.0) g/dL RDW 17.5 H (11.5-15.5) % Neutrophils # 13.4 H (1.3-7.7) k/uL APTT 61.5 H (22.0-30.0) sec ABG pH (7.35-7.45) ABG pCO2 (35-45) mmHg ABG pO2 (83-108) mmHg ABG HCO3 (21-25) mmol/L ABG Total CO2 (19-24) mmol/L ABG O2 Saturation (94-97) % BUN (7-17) mg/dL Glucose (74-99) mg/dL POC Glucose (mg/dL) 152 H (75-99) mg/dL Calcium (8.4-10.2) mg/dL AST (14-36) U/L Alkaline Phosphatase (38-126) U/L Albumin (3.5-5.0) g/dL RBC Folate (280 - 791) ng/mL 09/01/20 09/01/20 09/01/20 Range/Units 08:50 11:18 12:10 WBC (3.8-10.6) k/uL RBC (3.80-5.40) m/uL Hgb (11.4-16.0) gm/dL Hct (34.0-46.0) % MCV (80.0-100.0) fL MCH (25.0-35.0) pg MCHC (31.0-37.0) g/dL RDW (11.5-15.5) % Neutrophils # (1.3-7.7) k/uL APTT (22.0-30.0) sec ABG pH (7.35-7.45) ABG pCO2 (35-45) mmHg ABG pO2 (83-108) mmHg ABG HCO3 (21-25) mmol/L ABG Total CO2 (19-24) mmol/L ABG O2 Saturation (94-97) % BUN 22 H (7-17) mg/dL Glucose 120 H (74-99) mg/dL POC Glucose (mg/dL) 127 H 113 H (75-99) mg/dL Calcium 8.1 L (8.4-10.2) mg/dL AST 63 H (14-36) U/L Alkaline Phosphatase 630 H (38-126) U/L Albumin 2.7 L (3.5-5.0) g/dL RBC Folate (280 - 791) ng/mL 09/01/20 09/01/20 Range/Units 12:23 12:26 WBC (3.8-10.6) k/uL RBC (3.80-5.40) m/uL Hgb (11.4-16.0) gm/dL Hct (34.0-46.0) % MCV (80.0-100.0) fL MCH (25.0-35.0) pg MCHC (31.0-37.0) g/dL RDW (11.5-15.5) % Neutrophils # (1.3-7.7) k/uL APTT (22.0-30.0) sec ABG pH 7.53 H 7.53 H (7.35-7.45) ABG pCO2 31 L 31 L (35-45) mmHg ABG pO2 136 H 136 H (83-108) mmHg ABG HCO3 26 H 26 H (21-25) mmol/L ABG Total CO2 27 H 27 H (19-24) mmol/L ABG O2 Saturation 99.2 H 99.0 H (94-97) % BUN (7-17) mg/dL Glucose (74-99) mg/dL POC Glucose (mg/dL) (75-99) mg/dL Calcium (8.4-10.2) mg/dL AST (14-36) U/L Alkaline Phosphatase (38-126) U/L Albumin (3.5-5.0) g/dL RBC Folate (280 - 791) ng/mL Microbiology - Last 24 Hours (Table) 08/28/20 09:30 Blood Culture - Preliminary Blood No Growth after 96 hours 08/28/20 09:17 Blood Culture - Preliminary Blood No Growth after 96 hours Assessment and Plan Plan: Assessment: #1. Acute hypoxic respiratory failure related to hypoventilation and respiratory depression possibly related to pain medications and benzodiazepines. Chest x-ray was obtained showing bilateral lower lobe infiltrates and small effusion, patient is on antibiotics, currently on meropenem, Diflucan, and vancomycin #2. Recent history of divergent colostomy surgery on 08/24/2020 a rectal mass related to patient's recent diagnosis of locally advanced cervical cancer #3. Small amount of vaginal bleeding, possibly related to underlying history of cancer, and heparin infusion, will monitor hemoglobin, and switch heparin infusion to oral Eliquis #4. Elevated d-dimer, and CTA chest showed tiny pulmonary emboli in the right upper lobe and left lower lobe, patient had been on heparin infusion since 08/20/2020, with switched over to Eliquis. Lower extremity Dopplers were negative for DVT #5. Acute on chronic pain #6. History of COPD/asthma, unspecified #7. History of urinary tract infection on admission #8. History of urinary obstruction with hydronephrosis and possible stent malfunction present on admission #9. Acute blood loss anemia #10. Recent history of MediPort placement for treatment for cervical cancer Plan: Patient woke up response to Narcan No BiPAP right now, blood gas has been reviewed We will discontinue the fentanyl patch Continue with oral Dilaudid 2 mg every 3 hours Discontinue IV Dilaudid Continue oral lorazepam Switch IV heparin to oral Eliquis Monitor for signs of increased vaginal bleeding, Follow-up labs in the morning Antibiotics per ID service, so far the sepsis work up negative We'll continue to follow I performed a history & physical examination of the patient and discussed their management with my nurse practitioner, Merna Ferguson. I reviewed the nurse practitioner's note and agree with the documented findings and plan of care. Lung sounds are positive for diminished breath sounds. The findings and the impression was discussed with the patient. I attest to the documentation by the nurse practitioner. Time with Patient: Less than 30
[2020-09-01] MEDS: VANCOMYCIN 1,500 MG in SODIUM CHLORIDE 0.9% 250 ML IVPB SCH (14:50)
[2020-09-01 15:28] LABS: Appearance,Urine Cloudy (Clear); Bilirubin,Urine Negative (Negative); Blood,Urine Large (Negative); Color,Urine Yellow; Glucose,Urine (UA) Negative (Negative); Ketones,Urine Negative (Negative); Leukocyte Esterase,Urine Large (Negative); Mucus,Urine Rare /hpf; Nitrite,Urine Negative (Negative); Protein,Urine 1+ (Negative); RBC,Urine >182 /hpf (0-5); Specific Gravity,Urine 1.017 (1.001-1.035); Squamous Epithelial Cell,Urine <1 /hpf (0-4); Urobilinogen,Urine <2.0 mg/dL (<2.0); WBC,Urine 44 /hpf (0-5)
[2020-09-01 16:57] LABS: Glucose,Whole Blood 164 mg/dL (75-99)
[2020-09-01] MEDS: MEROPENEM 1 GM in SODIUM CHLORIDE 0.9% 100 ML IVPB SCH ×2 (18:05→23:43)
[2020-09-01] MEDS: metroNIDAZOLE 500 MG TAB PO SCH ×2 (18:22→23:43)
--- NOTE | 2020-09-01 19:08 | PN ---
PROGRESS NOTE DATE OF SERVICE: 09/01/2020 This 46-year-old woman who was admitted with abdominal pain with locally advanced cervical cancer, also had multiple other complex medical issues including respiratory failure as well as pulmonary embolism. Patient on IV heparin. Patient also has tachycardia. Patient has significant pain also on multiple medications. Most recent chest x-ray which was done today which was reviewed personally by me showed significant bilateral lesions. A chest CTA which is done recently, which was personally reviewed by me showed bilateral interstitial lesions and possible pneumonia. PAST MEDICAL HISTORY: Reviewed. REVIEW OF SYSTEMS: CARDIOVASCULAR: No angina. RESPIRATORY: As mentioned earlier. GI: No nausea or vomiting. no dysuria. Nervous system: No numbness, weakness. CURRENT MEDICATIONS: Reviewed and include: Tylenol, DuoNeb, Eliquis, Flexeril, Dilaudid, Xylocaine, and meropenem. Doses are reviewed. PHYSICAL EXAMINATION: Patient is alert, oriented x2. Pulse is regular 110, respirations 20, temperature normal, pulse ox is 98% on 6 L. Blood pressure 124/98. HEENT: Conjunctivae normal. NECK: No JVD. CARDIOVASCULAR: S1, S2 muffled. RESPIRATIONS: Breath sounds diminished in the bases. A few scattered rhonchi and crackles. ABDOMEN: Soft, nontender. No mass palpable. LEGS: No edema, no swelling. NERVOUS SYSTEM: No focal deficits. LABS: At this time shows: WBC 15.2, hemoglobin 12.7. ABGs pH is 7.53. ASSESSMENT: 1. Abdominal pain with locally advanced cervical cancer status post abdominal surgery and diverting colostomy awaiting definitive treatment. 2. Acute hypoxic respiratory failure with multifactorial, possibly. 3. Acute pulmonary embolism, possibly on direct oral anticoagulation. 4. Stage IV III/IV squamous cell carcinoma of the cervix. 5. Tachycardia possibly sinus. 6. Diphtheroids species from the blood culture initially, most recent cultures are negative. 7. Possibly bibasilar pneumonia interstitial. 8. Acute urinary tract infection with sepsis present on admission. 9. Acute respiratory acidosis. 10.Elevated D-dimer. 11.Urinary obstruction and hydronephrosis possibly with stent malfunction, present on admission. 12.History of recent MediPort placement. 13.Acute renal injury. 14.Acute blood loss anemia. 15.Shortness of breath, multifactorial, chronic obstructive pulmonary disease acute exacerbation, pneumonia. 16.Pain management. 17.Anemia, multifactorial. 18.Acute pain syndrome secondary to malignancy, possibly. RECOMMENDATIONS AND DISCUSSION: Recommend to continue current medications, symptomatic treatment. Otherwise, continue to monitor. Continue the bronchodilators. Continue with the empiric antibiotics. I would recommend continue with vancomycin. I would also recommend a course of short course of steroids empirically. Prognosis guarded because of multiple complex medical problems. Further recommendations to follow. MMODL / IJN: [id number] /
[2020-09-01] MEDS: APIXABAN 5 MG TAB PO SCH (20:17)
[2020-09-01] MEDS: PANTOPRAZOLE 40 MG TABLET PO SCH (20:17)
--- NOTE | 2020-09-01 21:40 | PN ---
PROGRESS NOTE DATE OF SERVICE: 09/01/2020. REASON FOR FOLLOWUP: New fever, concerning for pneumonia and complicated UTI. INTERVAL HISTORY: Patient is currently afebrile. Did have a low-grade fever of 102 Fahrenheit last evening. The patient complaining of shortness of breath and is requiring high-flow oxygen. Denies having chest pain did have a cough, not bringing up sputum. No nausea, no vomiting. Still complains of sp,e abdominal pain. No worsening and no diarrhea has been reported. PHYSICAL EXAMINATION: Blood pressure 126/70 with a pulse of 100, temperature 98.2. She is 93% on high-flow oxygen. General description is a middle-aged female lying in in no distress. Respiratory system: Unlabored breathing, decreased breath sounds in the base, with no wheeze. Heart S1, S2. Tachycardic. ABDOMEN: Soft, slightly distended. No guarding. No rigidity. EXTREMITIES: Some trace edema of feet. LABS: Hemoglobin 10.1, white count 15.7, BUN of 22, creatinine 1.02. DIAGNOSTIC IMPRESSION AND PLAN: Patient admitted to the hospital with complicated urinary tract infection and rectal mass status post diverting colostomy. This patient did have metastatic cervical cancer. Chest x-ray with evidence of bibasilar infiltrate, concern for possible pneumonia. Antibiotic has been broadened to meropenem and vancomycin. Try to obtain a sputum and monitor clinical course closely. Prognosis remains to be guarded. MMODL / IJN: [id number] /
[2020-09-01 23:58] LABS: Glucose,Whole Blood 172 mg/dL (75-99)
[2020-09-02] MEDS: CYCLOBENZAPRINE 5 MG TAB PO PRN ×2 (01:20→22:21)
[2020-09-02] MEDS: VANCOMYCIN 1,500 MG in SODIUM CHLORIDE 0.9% 250 ML IVPB SCH ×2 (02:36→13:25)
[2020-09-02] MEDS: ONDANSETRON 4 MG/2 ML VIAL IVP PRN ×2 (02:51→17:49)
[2020-09-02] MEDS: HYDROmorphone 2 MG TAB PO PRN ×5 (05:08→23:18)
[2020-09-02 06:19] LABS: Glucose,Whole Blood 175 mg/dL (75-99)
[2020-09-02 07:20] LABS: Anisocytosis Slight; Basophils # (A) 0.1 k/uL (0-0.2); Basophils % (A) 0 %; Eosinophils # (A) 0.3 k/uL (0-0.7); Eosinophils % (A) 2 %; HCT 25.4 % (34.0-46.0); HGB 7.7 gm/dL (11.4-16.0); Hypochromasia Marked; Lymphocytes # (A) 1.1 k/uL (1.0-4.8); Lymphocytes % (A) 8 %; MCH 23.9 pg (25.0-35.0); MCHC 30.2 g/dL (31.0-37.0); MCV 79.2 fL (80.0-100.0); Mean Platelet Volume 9.9; Microcytosis Slight; Monocytes # (A) 0.6 k/uL (0-1.0); Monocytes % (A) 4 %; Neutrophils # (A) 11.3 k/uL (1.3-7.7); Neutrophils % (A) 83 %; Platelet Count 174 k/uL (150-450); RBC 3.21 m/uL (3.80-5.40); RDW 17.4 % (11.5-15.5); WBC 13.6 k/uL (3.8-10.6)
[2020-09-02] MEDS: IPRATROPIUM-ALBUTEROL 3 ML NEB INHALATION SCH ×4 (07:51→19:54)
[2020-09-02] MEDS: METOPROLOL TARTRATE 12.5 MG TAB PO SCH ×2 (08:49→20:17)
[2020-09-02] MEDS: PANTOPRAZOLE 40 MG TABLET PO SCH ×2 (08:49→20:17)
[2020-09-02] MEDS: metroNIDAZOLE 500 MG TAB PO SCH ×3 (08:49→23:16)
[2020-09-02] MEDS: APIXABAN 5 MG TAB PO SCH ×2 (08:49→20:17)
[2020-09-02] MEDS: MEROPENEM 1 GM in SODIUM CHLORIDE 0.9% 100 ML IVPB SCH ×3 (08:52→23:13)
[2020-09-02] MEDS: NYSTATIN 100,000 UNIT/ML SUSP 500,000 UNIT/5 ML CUP PO SCH ×4 (08:55→22:22)
[2020-09-02 09:11] LABS: Methylmalonic Acid 0.28 umol/L (<0.40)
--- NOTE | 2020-09-02 11:57 | P.PN ---
Subjective Progress Note Date: 09/02/20 Principal diagnosis: Cervical Cancer She is currently resting, mother was bedside through night. She still has periods of inappropriate screaming and anxiousness she correlates to pain. although she has greatly improved respiratory sargent since yesterday A team, narcan, and pulmonary intervention Objective - Vital Signs Vital signs: Vital Signs Temp 99 F 09/02/20 05:00 Pulse 115 H 09/02/20 08:00 Resp 18 09/02/20 08:00 BP 113/73 09/02/20 05:00 Pulse Ox 91 L 09/02/20 05:00 Intake & Output 09/01/20 09/02/20 09/02/20 18:59 06:59 18:59 Intake Total 337.172 Output Total 2400 2100 400 Balance -2.828 -2100 -400 Weight 94.1 kg Intake: Intake, IV Titration 217.172 Amount Heparin Sod,Pork in 0.45% 217.172 NaCl 25,000 unit In 0.45 % NaCl 1 250ml.bag @ 10. 626 UNITS/KG/HR 9.999 mls /hr IV .Q24H [facility] Rx#: [id number] Oral 120 Output: Urine 1500 1300 Stool 900 800 400 Other: Voiding Method Indwelling Catheter Indwelling Catheter Indwelling Catheter # Voids 1 - Exam - Constitutional General appearance: no acute distress, pale, shalloww breathing, diaphoretic - EENT Eyes: edentulous, PERRLA ENT: hard of hearing - Neck Neck: no lymphadenopathy - Respiratory Respiratory: bilateral: CTA - Cardiovascular Rhythm: regular - Gastrointestinal General gastrointestinaltenderness, Ostomy small amount clear yellow liquid - Integumentary Integumentary: pale, no rash - Neurologic Neurologic: CNII-XII intact - Musculoskeletal Musculoskeletal: strength equal bilaterally - Psychiatric Psychiatric: A&O x's 3, inappropriate affect, lethargic, extremly anxious - Labs CBC & Chem 7: 09/02/20 06:55 09/01/20 08:50 Labs: Abnormal Lab Results - Last 24 Hours (Table) 08/30/20 09/01/20 09/01/20 Range/Units 06:09 12:10 12:23 WBC (3.8-10.6) k/uL RBC (3.80-5.40) m/uL Hgb (11.4-16.0) gm/dL Hct (34.0-46.0) % MCV (80.0-100.0) fL MCH (25.0-35.0) pg MCHC (31.0-37.0) g/dL RDW (11.5-15.5) % Neutrophils # (1.3-7.7) k/uL ABG pH 7.53 H (7.35-7.45) ABG pCO2 31 L (35-45) mmHg ABG pO2 136 H (83-108) mmHg ABG HCO3 26 H (21-25) mmol/L ABG Total CO2 27 H (19-24) mmol/L ABG O2 Saturation 99.2 H (94-97) % POC Glucose (mg/dL) 113 H (75-99) mg/dL RBC Folate 1,050 H (280 - 791) ng/mL Urine Appearance (Clear) Urine Protein (Negative) Urine Blood (Negative) Ur Leukocyte Esterase (Negative) Urine RBC (0-5) /hpf Urine WBC (0-5) /hpf Urine Mucus (None) /hpf 09/01/20 09/01/20 09/01/20 Range/Units 12:26 14:25 16:55 WBC (3.8-10.6) k/uL RBC (3.80-5.40) m/uL Hgb (11.4-16.0) gm/dL Hct (34.0-46.0) % MCV (80.0-100.0) fL MCH (25.0-35.0) pg MCHC (31.0-37.0) g/dL RDW (11.5-15.5) % Neutrophils # (1.3-7.7) k/uL ABG pH 7.53 H (7.35-7.45) ABG pCO2 31 L (35-45) mmHg ABG pO2 136 H (83-108) mmHg ABG HCO3 26 H (21-25) mmol/L ABG Total CO2 27 H (19-24) mmol/L ABG O2 Saturation 99.0 H (94-97) % POC Glucose (mg/dL) 164 H (75-99) mg/dL RBC Folate (280 - 791) ng/mL Urine Appearance Cloudy H (Clear) Urine Protein 1+ H (Negative) Urine Blood Large H (Negative) Ur Leukocyte Esterase Large H (Negative) Urine RBC >182 H (0-5) /hpf Urine WBC 44 H (0-5) /hpf Urine Mucus Rare H (None) /hpf 09/01/20 09/02/20 09/02/20 Range/Units 23:57 06:18 06:55 WBC 13.6 H (3.8-10.6) k/uL RBC 3.21 L (3.80-5.40) m/uL Hgb 7.7 L (11.4-16.0) gm/dL Hct 25.4 L (34.0-46.0) % MCV 79.2 L (80.0-100.0) fL MCH 23.9 L (25.0-35.0) pg MCHC 30.2 L (31.0-37.0) g/dL RDW 17.4 H (11.5-15.5) % Neutrophils # 11.3 H (1.3-7.7) k/uL ABG pH (7.35-7.45) ABG pCO2 (35-45) mmHg ABG pO2 (83-108) mmHg ABG HCO3 (21-25) mmol/L ABG Total CO2 (19-24) mmol/L ABG O2 Saturation (94-97) % POC Glucose (mg/dL) 172 H 175 H (75-99) mg/dL RBC Folate (280 - 791) ng/mL Urine Appearance (Clear) Urine Protein (Negative) Urine Blood (Negative) Ur Leukocyte Esterase (Negative) Urine RBC (0-5) /hpf Urine WBC (0-5) /hpf Urine Mucus (None) /hpf Microbiology - Last 24 Hours (Table) 08/28/20 09:30 Blood Culture - Preliminary Blood No Growth after 120 hours 08/28/20 09:17 Blood Culture - Preliminary Blood No Growth after 120 hours 09/01/20 14:25 Urine Culture - Preliminary Urine,Clean Catch Assessment and Plan Plan: Initial presentation with abdominal pain. Diagnosed with cervical cancer in June. She self catheterizes for urinary retention. Admits to Nausea and vomiting as well, which is improved since admission - Patient had bilateral ureteral stents placed on 06/25/2020. IV Antibiotics Cervical Cancer: Near Obstructing Rectal Mass The right ureteral stent appears more inferior than last exam. CT of the abdomen and pelvis: There is some minimal reticular nodular infiltrate at the lung bases. Extensive inflammatory changes in the pelvis with perirectal density measuring up to almost 3 cm in thickness. This is worse than last exam. Consider both inflammatory disease and malignancy. There is bilateral moderate hydronephrosis which appears to same or slightly worse than last exam. Stent malfunction is possible. There is increased reticular nodular interstitial infiltrate the lung bases compared to old exam. 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 - She has not started treatment Worsening Hypoxia: improving after A-team and Pulm intervention - CTA was determined to be consistent with pulmonary Emboli, however anticoagulation has not shown improvement. - I have connected with pulmonary, will defer additional imaging, blood gases, antibiotics to them. - Narcan given and has improved oxygenation and mental status. Failure to Thrive: - Psych is following although she is hesistant to work with them - She is refesing working with PT/OT and/or incentive spirometer. Concern for improvement of her condition and ability to treat her progressing cancer given her worsening performance. Discussed with patient, , and father. Unsure if she is comprehending the importance or if other
--- NOTE | 2020-09-02 12:51 | P.PN ---
Subjective Progress Note Date: 09/02/20 Principal diagnosis: Acute hypoxic respiratory failure This is a 45-year-old white female with known history of locally advanced cervical cancer, who underwent diverging colostomy for a rectal mass with secondary bowel obstruction and abdominal pain on 08/24/2020. Patient was in intensive care unit in the postoperative period. Her chest x-ray in the postoperative period showed some basilar atelectasis. Patient was extubated in the recovery room shortly after her surgery. 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 CTA chest was obtained on 08/20/2020 showing tiny filling defects within the right upper lobe pulmonary arterial branches and left lower lobe pulmonary arterial branches, possibly related to tiny pulmonary emboli. Lower extremity Dopplers were negative for DVT. Patient was started on heparin infusion. From pulmonary perspective she had been stable, and pulmonary/critical care service had signed off on 08/29/2020. Today on 09/01/2020 we got called back to the bedside for a concern of worsening dyspnea, hypoxia, and altered mental status. Rapid response team was called to the bedside. During our evaluation patient is very lethargic, and she is on 50% Ventimask with a pulse ox of 97-99%, she is barely arousable to painful stimuli, stat chest x-ray was obtained showing bilateral lower lobe infiltrates and small pleural effusion. The nursing staff reports that during the night patient was continuously yelling out and being very agitated, and in addition to her pain medications which included oral Dilaudid 2 mg every 3 hours as needed, IV Dilaudid 1 mg every 6 hours as needed, Flexeril, fentanyl patch 25 mics daily, she had also been given additional doses of Ativan 1 mg at 2:00 in the morning. Since then she was noted to be more lethargic, and more hypoxic requiring increased amount of oxygen. Respiratory depression related to narcotics and benzodiazepines was suspected and the patient was given 3 doses of Narcan 0.5 mg each, she woke up and started becoming more responsive. At that time blood gas was obtained showing pH of 7.53, pCO2 of 31, and pO2 of 136. Initially we were going to put the patient on BiPAP support however as she woke up after the Narcan we decided to hold on that. She did have a elevated temperature last night of 100F, patient had a septic workup done with blood cultures, urinalysis and urine culture, and all the cultures are negative thus far. Since current antibiotic coverage includes meropenem, Flagyl, and vancomycin. Staff reports small amount of vaginal bleeding, patient remains on heparin infusion for possibility of small PEs for the last several days, her last APTT this morning was therapeutic at 61.5, this morning's hemoglobin is 7.9. At this time we can switch patient's heparin infusion to oral Eliquis and continue monitoring for any further bleeding and continue monitoring hemoglobin. On 09/02/2020 patient seen in follow-up on medical oncology floor, she is much more responsive today, still a bit somnolent, but easily wakes up to verbal stimulation, denies any worsening dyspnea, no cough, she remains on 6 L of oxygen, her pulse ox is 94%, and this can be further wean to maintain O2 saturations at or above 90%. She is complaining of some abdominal discomfort. Her colostomy is producing stool. Abdomen is positive for postsurgical tenderness, but it is soft. Patient has been afebrile in the last 24 hours. Her cultures including blood and urine are negative. She continues on breathing treatments, she remains on oral Dilaudid to 2 mg every 3 hours, yesterday we switched her IV heparin to oral Eliquis for possibility of pulmonary emboli. In addition she is on antibiotics in the form of Diflucan, vancomycin and meropenem. No cough. No hemoptysis. No increased vaginal bleeding reports from nursing, today's blood work has been reviewed, her hemoglobin is 7.7, white blood cell count is improving and is down to 13.6 on today's labs. Objective - Vital Signs Vital signs: Vital Signs Temp 99 F 09/02/20 05:00 Pulse 115 H 09/02/20 08:00 Resp 18 09/02/20 08:00 BP 113/73 09/02/20 05:00 Pulse Ox 91 L 09/02/20 05:00 Intake & Output 09/01/20 09/02/20 09/02/20 18:59 06:59 18:59 Intake Total 337.172 Output Total 2400 2100 400 Balance -2061.828 400 Weight 94.1 kg Intake: Intake, IV Titration 217.172 Amount Heparin Sod,Pork in 0.45% 217.172 NaCl 25,000 unit In 0.45 % NaCl 1 250ml.bag @ 10. 626 UNITS/KG/HR 9.999 mls /hr IV .Q24H [facility] Rx#: [id number] Oral 120 Output: Urine 1500 1300 Stool 900 800 400 Other: Voiding Method Indwelling Catheter Indwelling Catheter Indwelling Catheter # Voids 1 - Exam GENERAL EXAM: More arousable 45-year-old female, on 6 L of oxygen with pulse ox of 91-94% HEAD: Normocephalic/atraumatic. EYES: Normal reaction of pupils, equal size. Conjunctiva pink, sclera white. NOSE: Clear with pink turbinates. THROAT: No erythema or exudates. NECK: No masses, no JVD, no thyroid enlargement, no adenopathy. CHEST: No chest wall deformity. Symmetrical expansion. LUNGS: Equal air entry with diminished breath sounds at the bases CVS: Regular rate and rhythm, normal S1 and S2, no gallops, no murmurs, no rubs ABDOMEN: Soft, nontender. No hepatosplenomegaly, normal bowel sounds, no guarding or rigidity. EXTREMITIES: No clubbing, no edema, no cyanosis, 2+ pulses and upper and lower extremities. MUSCULOSKELETAL: Muscle strength and tone normal. SPINE: No scoliosis or deformity SKIN: No rashes CENTRAL NERVOUS SYSTEM: Somnolent, but easily opens eyes to verbal stimulation, responds verbally, appropriately, oriented 3 No focal deficits, tone is normal in all 4 extremities. - Labs CBC & Chem 7: 09/02/20 06:55 09/01/20 08:50 Labs: Abnormal Lab Results - Last 24 Hours (Table) 08/30/20 09/01/20 09/01/20 Range/Units 06:09 12:26 14:25 WBC (3.8-10.6) k/uL RBC (3.80-5.40) m/uL Hgb (11.4-16.0) gm/dL Hct (34.0-46.0) % MCV (80.0-100.0) fL MCH (25.0-35.0) pg MCHC (31.0-37.0) g/dL RDW (11.5-15.5) % Neutrophils # (1.3-7.7) k/uL ABG pH 7.53 H (7.35-7.45) ABG pCO2 31 L (35-45) mmHg ABG pO2 136 H (83-108) mmHg ABG HCO3 26 H (21-25) mmol/L ABG Total CO2 27 H (19-24) mmol/L ABG O2 Saturation 99.0 H (94-97) % POC Glucose (mg/dL) (75-99) mg/dL RBC Folate 1,050 H (280 - 791) ng/mL Urine Appearance Cloudy H (Clear) Urine Protein 1+ H (Negative) Urine Blood Large H (Negative) Ur Leukocyte Esterase Large H (Negative) Urine RBC >182 H (0-5) /hpf Urine WBC 44 H (0-5) /hpf Urine Mucus Rare H (None) /hpf 09/01/20 09/01/20 09/02/20 Range/Units 16:55 23:57 06:18 WBC (3.8-10.6) k/uL RBC (3.80-5.40) m/uL Hgb (11.4-16.0) gm/dL Hct (34.0-46.0) % MCV (80.0-100.0) fL MCH (25.0-35.0) pg MCHC (31.0-37.0) g/dL RDW (11.5-15.5) % Neutrophils # (1.3-7.7) k/uL ABG pH (7.35-7.45) ABG pCO2 (35-45) mmHg ABG pO2 (83-108) mmHg ABG HCO3 (21-25) mmol/L ABG Total CO2 (19-24) mmol/L ABG O2 Saturation (94-97) % POC Glucose (mg/dL) 164 H 172 H 175 H (75-99) mg/dL RBC Folate (280 - 791) ng/mL Urine Appearance (Clear) Urine Protein (Negative) Urine Blood (Negative) Ur Leukocyte Esterase (Negative) Urine RBC (0-5) /hpf Urine WBC (0-5) /hpf Urine Mucus (None) /hpf 09/02/20 Range/Units 06:55 WBC 13.6 H (3.8-10.6) k/uL RBC 3.21 L (3.80-5.40) m/uL Hgb 7.7 L (11.4-16.0) gm/dL Hct 25.4 L (34.0-46.0) % MCV 79.2 L (80.0-100.0) fL MCH 23.9 L (25.0-35.0) pg MCHC 30.2 L (31.0-37.0) g/dL RDW 17.4 H (11.5-15.5) % Neutrophils # 11.3 H (1.3-7.7) k/uL ABG pH (7.35-7.45) ABG pCO2 (35-45) mmHg ABG pO2 (83-108) mmHg ABG HCO3 (21-25) mmol/L ABG Total CO2 (19-24) mmol/L ABG O2 Saturation (94-97) % POC Glucose (mg/dL) (75-99) mg/dL RBC Folate (280 - 791) ng/mL Urine Appearance (Clear) Urine Protein (Negative) Urine Blood (Negative) Ur Leukocyte Esterase (Negative) Urine RBC (0-5) /hpf Urine WBC (0-5) /hpf Urine Mucus (None) /hpf Microbiology - Last 24 Hours (Table) 08/28/20 09:30 Blood Culture - Preliminary Blood No Growth after 120 hours 08/28/20 09:17 Blood Culture - Preliminary Blood No Growth after 120 hours 09/01/20 14:25 Urine Culture - Preliminary Urine,Clean Catch Assessment and Plan Plan: Assessment: #1. Acute hypoxic respiratory failure related to hypoventilation and respiratory depression possibly related to pain medications and benzodiazepines. Chest x-ray was obtained showing bilateral lower lobe infiltrates and small effusion, patient is on antibiotics, currently on meropenem, Diflucan, and vancomycin. Patient's hypoxia and dyspnea have improved, patient's pain medications have been adjusted and no patch and additional IV Dilaudid were discontinued. Patient continues on oral Dilaudid. Currently on 6 L of oxygen breathing comfortably, satting 94% #2. Recent history of diverting colostomy surgery on 08/24/2020 a rectal mass related to patient's recent diagnosis of locally advanced cervical cancer #3. Small amount of vaginal bleeding, possibly related to underlying history of cancer, and heparin infusion, will monitor hemoglobin, and switch heparin infusion to oral Eliquis #4. Elevated d-dimer, and CTA chest showed tiny pulmonary emboli in the right upper lobe and left lower lobe, patient had been on heparin infusion since 08/20/2020, with switched over to Eliquis. Lower extremity Dopplers were negative for DVT #5. Acute on chronic pain #6. History of COPD/asthma, unspecified #7. History of urinary tract infection on admission #8. History of urinary obstruction with hydronephrosis and possible stent malfunction present on admission #9. Acute blood loss anemia #10. Recent history of MediPort placement for treatment for cervical cancer Plan: Continue weaning FiO2 to keep O2 sat at or above 90% Provide incentive spirometer and encourage use Encourage deep breathing and coughing Much more awake and responsive on today's exam She is currently on 6 L of supplemental oxygen Continue with oral Dilaudid for pain relief Continue oral anticoagulation Monitor for signs of increased vaginal bleeding, Antibiotics per ID service, so far the sepsis work up negative Patient is improved from pulmonary perspective, avoid oversedation with narcotics and benzodiazepines. Pulmonary critical care service will sign off and follow on as-needed basis I performed a history & physical examination of the patient and discussed their management with my nurse practitioner, Merna Ferguson. I reviewed the nurse practitioner's note and agree with the documented findings and plan of care. Lung sounds are positive for diminished breath sounds. The findings and the impression was discussed with the patient. I attest to the documentation by the nurse practitioner. Time with Patient: Less than 30
--- NOTE | 2020-09-02 13:11 | PN ---
PROGRESS NOTE DATE OF SERVICE: 09/02/2020 REASON FOR FOLLOWUP: Question of pneumonia. INTERVAL HISTORY: The patient is afebrile. The patient remains to be complaining of abdominal pain and some chest pain. She did have a cough, not bringing up any sputum though. Nausea, but no vomiting or diarrhea has been reported by the nursing staff. PHYSICAL EXAMINATION: Blood pressure 113/73 with a pulse of 117, temperature 99. She is 91% on 6 L nasal cannula. General description is a middle-aged female lying in in no distress. Respiratory system: Unlabored breathing, decreased breath sounds at the base. No wheeze. HEART: S1, S2. Regular rate and rhythm. ABDOMEN: Soft, mildly tender. No guarding. No rigidity. LABS: Hemoglobin 7, white count of 13.6. DIAGNOSTIC IMPRESSION AND PLAN: Patient with stage III cervical cancer admitted to the hospital with concern for the urinary tract infection and did have an obstructed rectal tumor status post diverting colostomy, now with worsening respiratory status. Did have evidence of pulmonary embolism and a question of pneumonia. Antibiotic was broadened yesterday because of overall mild respiratory status. We will try to obtain a sputum. Check inflammatory markers and add antibiotics further if needed. Prognosis remains to be guarded. Continue supportive care. MMODL / IJN: [id number] /
--- NOTE | 2020-09-02 15:42 | PN ---
PROGRESS NOTE DATE OF SERVICE: 09/02/2020 This 45-year-old woman who was admitted with multiple medical problems had locally advanced shortness of breath. The patient is receiving bronchodilators. The patient is complaining of significant aches and pains. No chest. No chest pain. No palpitations. No fever. PHYSICAL EXAMINATION: Alert and oriented x2. Pulse is 117. Blood pressure is 108/70, respiration 20, temperature is 98.1, pulse ox 98% on 4 L. HEENT: Conjunctivae normal. NECK: No JVD. CARDIOVASCULAR: S1, S2 muffled. RESPIRATIONS: Breath sounds diminished in the bases. A few scattered rhonchi. ABDOMEN: Soft. Nontender. NERVOUS SYSTEM: No focal deficits. LABS: WBC 13.2, hemoglobin 7.7. UA noted. ASSESSMENT: 1. Abdominal pain with locally advanced cervical cancer, status post abdominal surgery and diverting colostomy, awaiting definitive treatment. 2. Acute hypoxic respiratory failure which is multifactorial, possibly. 3. Acute pulmonary embolism on direct anticoagulants. 4. Possibly 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 5. Tachycardia possibly sinus. 6. Diphtheroids species from the blood cultures initially. Most recent cultures negative. 7. Possible bibasilar pneumonia, interstitial. 8. Acute urinary tract infection with sepsis, present on admission. 9. Acute respiratory acidosis. 10.Elevated D-dimer. 11.Urinary obstruction and hydronephrosis, possibly with stent malfunction, present on admission. 12.History of recent MediPort placement. 13.Acute renal injury. 14.Acute blood loss anemia. 15.Shortness of breath, multifactorial, chronic obstructive pulmonary disease, acute exacerbation and pneumonia. 16.Pain management. 17.Anemia, multifactorial. 18.Acute pain syndrome, possibly secondary to malignancy. RECOMMENDATIONS AND DISCUSSION: I recommend to continue current medications, management and symptomatic treatment. Continue the pain management. Continue the antibiotics. Continue bronchodilators. Continue with anticoagulants. Repeat labs will be ordered. Overall prognosis guarded because of multiple complex medical issues. Further recommendations to follow. PT/OT evaluation. MMODL / IJN: [id number] / [place]
[2020-09-02 19:58] LABS: African American GFR (CKD) 79.3 (60.0-200.0); Albumin 2.8 g/dL (3.80-4.90); Albumin/Globulin Ratio 0.78 (1.60-3.17); Anion Gap 10.9 mmol/L (4.00-12.00); Calcium 8.1 mg/dL (8.7-10.3); Carbon Dioxide 21.1 mmol/L (21.6-31.8); Globulin 3.6 g/dL (1.6-3.3); Non-African American GFR(CKD) 68.5 (60.0-200.0); Total Bilirubin 0.5 mg/dL (0.3-1.2); Total Protein 6.4 g/dL (6.2-8.2)
[2020-09-02] MEDS: SODIUM CHLORIDE 0.9% 1,000 ML IV SCH (20:34)
[2020-09-03] MEDS: ONDANSETRON 4 MG/2 ML VIAL IVP PRN ×2 (00:50→10:43)
[2020-09-03 01:24] LABS: Glucose,Whole Blood 114 mg/dL (75-99)
[2020-09-03] MEDS: TRIMETHOBENZAMIDE 100 MG/ML 2 ML VIAL IM PRN ×2 (02:08→20:10)
[2020-09-03] MEDS: VANCOMYCIN 1,500 MG in SODIUM CHLORIDE 0.9% 250 ML IVPB SCH ×2 (02:08→14:07)
[2020-09-03] MEDS: HYDROmorphone 2 MG TAB PO PRN ×7 (02:10→22:34)
[2020-09-03] MEDS: CYCLOBENZAPRINE 5 MG TAB PO PRN (06:12)
[2020-09-03 08:08] LABS: Anisocytosis Slight; Basophils # (A) 0.1 k/uL (0-0.2); Basophils % (A) 1 %; Eosinophils # (A) 0.3 k/uL (0-0.7); Eosinophils % (A) 2 %; HGB 7.8 gm/dL (11.4-16.0); Hypochromasia Marked; Lymphocytes # (A) 1.8 k/uL (1.0-4.8); Lymphocytes % (A) 12 %; MCH 24.8 pg (25.0-35.0); MCHC 31.3 g/dL (31.0-37.0); MCV 79.3 fL (80.0-100.0); Mean Platelet Volume 9.1; Microcytosis Slight; Monocytes # (A) 0.7 k/uL (0-1.0); Monocytes % (A) 4 %; Neutrophils # (A) 11.9 k/uL (1.3-7.7); Neutrophils % (A) 79 %; Platelet Count 223 k/uL (150-450); RBC 3.15 m/uL (3.80-5.40); RDW 17.6 % (11.5-15.5)
[2020-09-03] MEDS: IPRATROPIUM-ALBUTEROL 3 ML NEB INHALATION SCH ×4 (08:14→20:07)
[2020-09-03 08:35] LABS: African American GFR (CKD) 83 (>60 ml/min/1.73 sqM); Anion Gap 7 mmol/L; Blood Urea Nitrogen 21 mg/dL (7-17); Calcium 8.3 mg/dL (8.4-10.2); Carbon Dioxide 25 mmol/L (22-30); Chloride 106 mmol/L (98-107); Glucose 105 mg/dL (74-99); Non-African American GFR(CKD) 72 (>60 ml/min/1.73 sqM); Potassium 4.3 mmol/L (3.5-5.1); Sodium 138 mmol/L (137-145)
[2020-09-03] MEDS: MEROPENEM 1 GM in SODIUM CHLORIDE 0.9% 100 ML IVPB SCH ×2 (08:46→16:04)
[2020-09-03] MEDS: PANTOPRAZOLE 40 MG TABLET PO SCH ×2 (08:47→21:44)
[2020-09-03] MEDS: METOPROLOL TARTRATE 12.5 MG TAB PO SCH ×2 (08:47→21:44)
[2020-09-03] MEDS: metroNIDAZOLE 500 MG TAB PO SCH ×2 (08:47→16:00)
[2020-09-03] MEDS: APIXABAN 5 MG TAB PO SCH ×2 (08:47→21:44)
[2020-09-03] MEDS: NYSTATIN 100,000 UNIT/ML SUSP 500,000 UNIT/5 ML CUP PO SCH ×4 (08:47→21:40)
[2020-09-03] MEDS ORDERED: VANCOMYCIN TROUGH DUE 1 EACH MISC MISCELLANE ONE (13:00)
--- NOTE | 2020-09-03 13:11 | P.PN ---
Subjective Progress Note Date: 09/03/20 Principal diagnosis: Cervical Cancer Objective - Vital Signs Vital signs: Vital Signs Temp 98.4 F 09/03/20 11:25 Pulse 117 H 09/03/20 11:25 Resp 22 09/03/20 11:25 BP 115/79 09/03/20 11:25 Pulse Ox 95 09/03/20 11:25 Intake & Output 09/02/20 09/03/20 09/03/20 18:59 06:59 18:59 Intake Total 160 Output Total 400 1100 300 Balance -240 -1100 -300 Intake: Oral 160 Output: Urine 700 Stool 400 400 300 Other: Voiding Method Indwelling Catheter Indwelling Catheter Indwelling Catheter - Exam - Constitutional General appearance: no acute distress, pale, shalloww breathing, diaphoretic - EENT Eyes: edentulous, PERRLA ENT: hard of hearing - Neck Neck: no lymphadenopathy - Respiratory Respiratory: bilateral: CTA - Cardiovascular Rhythm: regular - Gastrointestinal General gastrointestinaltenderness, Ostomy small amount clear yellow liquid - Integumentary Integumentary: pale, no rash - Neurologic Neurologic: CNII-XII intact - Musculoskeletal Musculoskeletal: strength equal bilaterally - Psychiatric Psychiatric: A&O x's 3, inappropriate affect, lethargic, extremly anxious - Labs CBC & Chem 7: 09/03/20 07:06 09/03/20 07:06 Labs: Abnormal Lab Results - Last 24 Hours (Table) 09/02/20 09/03/20 09/03/20 Range/Units 06:55 01:21 07:06 WBC (3.8-10.6) k/uL RBC (3.80-5.40) m/uL Hgb (11.4-16.0) gm/dL Hct (34.0-46.0) % MCV (80.0-100.0) fL MCH (25.0-35.0) pg RDW (11.5-15.5) % Neutrophils # (1.3-7.7) k/uL Carbon Dioxide 21.1 L (21.6-31.8) mmol/L BUN 21 H (7-17) mg/dL BUN/Creatinine Ratio 26.00 H (12.00-20.00) Ratio Glucose 148 H 105 H (70-110) mg/dL POC Glucose (mg/dL) 114 H (75-99) mg/dL Calcium 8.1 L 8.3 L (8.7-10.3) mg/dL AST 61 H (13-35) U/L Alkaline Phosphatase 632 H (41-126) U/L C-Reactive Protein 8.0 H (<1.0) mg/dL Albumin 2.80 L (3.80-4.90) g/dL Globulin 3.6 H (1.6-3.3) g/dL Albumin/Globulin Ratio 0.78 L (1.60-3.17) g/dL 09/03/20 Range/Units 07:06 WBC 15.0 H (3.8-10.6) k/uL RBC 3.15 L (3.80-5.40) m/uL Hgb 7.8 L (11.4-16.0) gm/dL Hct 25.0 L (34.0-46.0) % MCV 79.3 L (80.0-100.0) fL MCH 24.8 L (25.0-35.0) pg RDW 17.6 H (11.5-15.5) % Neutrophils # 11.9 H (1.3-7.7) k/uL Carbon Dioxide (21.6-31.8) mmol/L BUN (7-17) mg/dL BUN/Creatinine Ratio (12.00-20.00) Ratio Glucose (70-110) mg/dL POC Glucose (mg/dL) (75-99) mg/dL Calcium (8.7-10.3) mg/dL AST (13-35) U/L Alkaline Phosphatase (41-126) U/L C-Reactive Protein (<1.0) mg/dL Albumin (3.80-4.90) g/dL Globulin (1.6-3.3) g/dL Albumin/Globulin Ratio (1.60-3.17) g/dL Microbiology - Last 24 Hours (Table) 08/28/20 09:30 Blood Culture - Final Blood No Growth after 144 hours 08/28/20 09:17 Blood Culture - Final Blood No Growth after 144 hours 09/01/20 14:25 Urine Culture - Final Urine,Clean Catch 09/01/20 16:40 Blood Culture - Preliminary Blood No Growth after 24 hours 09/01/20 14:18 Blood Culture - Preliminary Blood No Growth after 24 hours 09/01/20 14:18 Blood Culture - Preliminary Blood No Growth after 24 hours Assessment and Plan Plan: Initial presentation with abdominal pain. Diagnosed with cervical cancer in June. She self catheterizes for urinary retention. Admits to Nausea and vomiting as well, which is improved since admission - Patient had bilateral ureteral stents placed on 06/25/2020. IV Antibiotics Cervical Cancer: Near Obstructing Rectal Mass The right ureteral stent appears more inferior than last exam. CT of the abdomen and pelvis: There is some minimal reticular nodular infiltrate at the lung bases. Extensive inflammatory changes in the pelvis with perirectal density measuring up to almost 3 cm in thickness. This is worse than last exam. Consider both inflammatory disease and malignancy. There is bilateral moderate hydronephrosis which appears to same or slightly worse than last exam. Stent malfunction is possible. There is increased reticular nodular interstitial infiltrate the lung bases compared to old exam. 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 - She has not started treatment Worsening Hypoxia: improving after A-team and Pulm intervention - CTA was determined to be consistent with pulmonary Emboli, however anticoagulation has not shown improvement. - I have connected with pulmonary, will defer additional imaging, blood gases, antibiotics to them. - Narcan given and has improved oxygenation and mental status. Failure to Thrive: - Psych is following although she is hesistant to work with them - She is refesing working with PT/OT and/or incentive spirometer. Concern for improvement of her condition and ability to treat her progressing cancer given her worsening performance. Discussed with patient, , and father. Unsure if she is comprehending the importance or if other Plan: - Unfortunately the patient has not made improvements in strength and has not been cooperating with PT/OT to attempt to increase strength. She complains of severe pain still, however required narcan due to respiratory depression earlier this week. Unfortunately with her declining functional status we are unable to intiiate systemic chemo. She needs to be stronger and able to tolerate otherwise we are not helping her but could potentially hurt her. Primary team and case management has decided to find ECF rehab placement, she will hopefully get stronger and be able to start systemic therapy within the next 2-3 weeks. Will obviously hold plan to start till after discharged from rehab and improved performance is seen.
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
--- NOTE | 2020-09-03 14:07 | PN ---
PROGRESS NOTE DATE OF SERVICE: 09/03/2020 REASON FOR FOLLOWUP: Pneumonia. INTERVAL HISTORY: The patient is afebrile. The patient did mention she is breathing comfortably today. The patient denies having chest pain. She did have a cough, not bringing any sputum. No vomiting. No abdominal pain. No diarrhea reported. PHYSICAL EXAMINATION: Blood pressure 115/79, pulse of 117, temperature 98.4. She is 95% on 4 L nasal cannula. General description: The patient is a middle-aged female lying in in no distress. Respiratory system: Unlabored breathing with decreased breath sounds in the base. No wheeze. Heart S1, S2. Regular. ABDOMEN: Soft, slightly distended. No guarding. No rigidity. LABS: Hemoglobin 7.1, white count with BUN of 21, creatinine 0.97. Blood cultures repeat have been negative so far. DIAGNOSTIC IMPRESSION AND PLAN: Patient admitted to hospital initially with abdominal pain in this patient who did have a stage IIIB cervical cancer with bilateral hydronephrosis and obstructing status post diverting colostomy, slightly worsening respiratory status. Did have PE. There was question of possible pneumonia. Patient is currently broadly covered with meropenem and Vanco to continue. We will try to obtain a sputum to narrow down antibiotics. Continue supportive care. MMODL / IJN: [id number] /
[2020-09-03] MEDS: SODIUM CHLORIDE 0.9% 1,000 ML IV SCH (15:11)
[2020-09-03 17:04] LABS: Potassium 4.3 mmol/L (3.5-5.1)
--- NOTE | 2020-09-03 18:29 | PN ---
PROGRESS NOTE DATE OF SERVICE: 09/03/2020 This 45-year-old woman was admitted with abdominal pain and locally advanced cervical cancer, had abdominal surgery. No chest pain. No palpitations. No fever. The patient is extremely short of breath. The patient is being closely monitored. Most recent chest x-ray which was reviewed personally by me showed bilateral lower lobe infiltrates. ECF rehab is also consideration. PAST MEDICAL HISTORY: Reviewed. REVIEW OF SYSTEMS: CARDIOVASCULAR No angina or palpitations. RESPIRATORY As mentioned earlier. GI No nausea, vomiting, or diarrhea. As mentioned earlier. NERVOUS No numbness or weakness CURRENT MEDICATIONS: Reviewed include Tylenol, DuoNeb, Eliquis, Flexeril, Dilaudid. Doses reviewed. PHYSICAL EXAMINATION: Alert and oriented x3. Pulse 117, blood pressure 115/70, respiration 22, temperature 98.2, pulse ox 98% on 4 L. HEENT: Conjunctivae normal. Oral mucosa moist. NECK: No jugular venous distention. No lymph node enlargement. CARDIOVASCULAR: S1, S2, muffled. No S3, no S4, RESPIRATORY: Diminished breath sounds at the bases. Scattered rhonchi and crackles. Expiratory wheezing also. ABDOMEN: Soft, nontender. NERVOUS SYSTEM: No focal deficits. LAB STUDIES: WBC 15, hemoglobin 7.8, sodium 138, potassium 4.3. Procalcitonin 0.73/ ASSESSMENT: 1. Abdominal pain with locally advanced cervical cancer status post abdominal surgery, diverting colostomy, awaiting definitive treatment. 2. Acute hypoxic respiratory failure which is multifactorial possibly. 3. Acute pulmonary embolism on direct anticoagulants. 4. 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 5. Tachycardia, possibly sinus. 6. Diphtheroids species in the blood cultures initially, most recent cultures negative. 7. Bibasilar pneumonia or interstitial pneumonia, possibly gram-negative. 8. Acute urinary tract infection with sepsis present on admission. 9. Acute respiratory acidosis. 10.Elevated D-dimer. 11.Urinary obstruction, hydronephrosis, possibly stent malfunction, present on admission. 12.History of recent MediPort placement. 13.Acute renal injury. 14.Acute blood loss anemia. 15.Shortness of breath, multifactorial, COPD acute exacerbation and pneumonia. 16.Pain management. 17.Anemia, multifactorial. 18.Acute pain syndrome possibly secondary to malignancy. RECOMMENDATIONS: Recommend to continue current management and symptomatic treatment. Repeat labs. Bronchodilators. Pain management. The patient is still hypoxic. PT/OT evaluation, possible ECF rehab. Discussed with staff. Guarded prognosis because of multiple complex medical issues. Closely monitor with multiple consultants. Prognosis guarded. MMODL / IJN: [id number] /
[2020-09-03 18:40] LABS: ALT 27 U/L (4-34); AST 75 U/L (14-36); African American GFR (CKD) 83 (>60 ml/min/1.73 sqM); Albumin 2.6 g/dL (3.5-5.0); Albumin/Globulin Ratio 0.7; Alkaline Phosphatase 859 U/L (38-126); Anion Gap 7 mmol/L; Blood Urea Nitrogen 22 mg/dL (7-17); Calcium 8.8 mg/dL (8.4-10.2); Carbon Dioxide 25 mmol/L (22-30); Chloride 106 mmol/L (98-107); Glucose 101 mg/dL (74-99); Non-African American GFR(CKD) 72 (>60 ml/min/1.73 sqM); Sodium 138 mmol/L (137-145); Total Bilirubin 0.5 mg/dL (0.2-1.3); Total Protein 6.6 g/dL (6.3-8.2)
[2020-09-03] MEDS: ACETAMINOPHEN TAB 325 MG TAB PO PRN (21:45)
[2020-09-04] MEDS: metroNIDAZOLE 500 MG TAB PO SCH ×4 (00:19→23:06)
[2020-09-04] MEDS: CYCLOBENZAPRINE 5 MG TAB PO PRN ×3 (00:19→17:56)
[2020-09-04] MEDS: MEROPENEM 1 GM in SODIUM CHLORIDE 0.9% 100 ML IVPB SCH ×4 (00:20→23:07)
[2020-09-04] MEDS: SODIUM CHLORIDE 0.9% 1,000 ML IV SCH (00:20)
[2020-09-04] MEDS: HYDROmorphone 2 MG TAB PO PRN ×7 (01:45→23:05)
[2020-09-04] MEDS: VANCOMYCIN 1,500 MG in SODIUM CHLORIDE 0.9% 250 ML IVPB SCH ×2 (02:04→13:05)
[2020-09-04] MEDS: ACETAMINOPHEN TAB 325 MG TAB PO PRN (04:00)
[2020-09-04 06:58] LABS: Anisocytosis Slight; Basophils # (A) 0.1 k/uL (0-0.2); Basophils % (A) 1 %; Eosinophils # (A) 0.5 k/uL (0-0.7); Eosinophils % (A) 3 %; HCT 26.4 % (34.0-46.0); HGB 8.3 gm/dL (11.4-16.0); Hypochromasia Marked; Lymphocytes # (A) 1.4 k/uL (1.0-4.8); Lymphocytes % (A) 9 %; MCH 24.5 pg (25.0-35.0); MCHC 31.3 g/dL (31.0-37.0); MCV 78.2 fL (80.0-100.0); Mean Platelet Volume 7.9; Microcytosis Slight; Monocytes # (A) 0.7 k/uL (0-1.0); Monocytes % (A) 5 %; Neutrophils % (A) 79 %; Platelet Count 203 k/uL (150-450); RBC 3.38 m/uL (3.80-5.40); RDW 18.2 % (11.5-15.5); WBC 15.1 k/uL (3.8-10.6)
[2020-09-04] MEDS: IPRATROPIUM-ALBUTEROL 3 ML NEB INHALATION SCH ×4 (07:27→19:52)
[2020-09-04] MEDS: PANTOPRAZOLE 40 MG TABLET PO SCH ×2 (08:24→21:15)
[2020-09-04] MEDS: APIXABAN 5 MG TAB PO SCH ×2 (08:24→21:15)
[2020-09-04] MEDS: METOPROLOL TARTRATE 12.5 MG TAB PO SCH ×2 (08:25→21:15)
[2020-09-04] MEDS: NYSTATIN 100,000 UNIT/ML SUSP 500,000 UNIT/5 ML CUP PO SCH ×4 (08:25→21:15)
[2020-09-04] MEDS: ONDANSETRON 4 MG/2 ML VIAL IVP PRN (09:07)
[2020-09-04] MEDS: TRIMETHOBENZAMIDE 100 MG/ML 2 ML VIAL IM PRN (12:51)
--- NOTE | 2020-09-04 13:25 | P.PN ---
Progress Note - Text Progress Note Date: 09/04/20 Interval History: Patient was seen resting in bed and was somnolent and difficult to arouse. As per discussion with the patient's nurse, the patient has displayed a significant improvement in mood and interactions with staff today. She will continue to display episodes of irritability and mood lability but overall has been displaying less mood dysregulation. At this time this provider will let the patient continue to rest and will re-evaluate on Monday. Objective: Vital Signs Temp 97.7 F 09/04/20 11:36 Pulse 103 H 09/04/20 11:36 Resp 20 09/04/20 11:36 BP 115/78 09/04/20 11:36 Pulse Ox 94 L 09/04/20 05:00 Intake & Output 09/03/20 09/04/20 09/04/20 18:59 06:59 18:59 Intake Total 850 Output Total 1450 700 Balance -1450 150 Weight 94.1 kg Intake: Intake, IV Titration 850 Amount Meropenem 1 gm In Sodium 100 Chloride 0.9% 100 ml @ 33 .3 mls/hr IVPB Q8HR [facility] Rx#:[id number] Sodium Chloride 0.9% 1, 500 000 ml @ 50 mls/hr IV . Q20H [facility] Rx#:[id number] Vancomycin 1,500 mg In 250 Sodium Chloride 0.9% 250 ml @ 125 mls/hr IVPB Q12H [facility] Rx#:[id number] Output: Urine 850 700 Stool 600 Other: Voiding Method Indwelling Catheter Indwelling Catheter Indwelling Catheter # Bowel Movements 1 Laboratory Results - Last 24 Hours 09/03/20 09/03/20 09/04/20 12:36 16:27 06:40 WBC RBC Hgb Hct MCV MCH MCHC RDW Plt Count MPV Neutrophils % Lymphocytes % Monocytes % Eosinophils % Basophils % Neutrophils # Lymphocytes # Monocytes # Eosinophils # Basophils # Hypochromasia Anisocytosis Microcytosis Sodium 138 Potassium 4.3 Chloride 106 Carbon Dioxide 25 Anion Gap 7 BUN 22 H Creatinine 0.96 0.95 Est GFR (CKD-EPI)AfAm 83 85 Est GFR (CKD-EPI)NonAf 72 74 Glucose 101 H Calcium 8.8 Total Bilirubin 0.5 AST 75 H ALT 27 Alkaline Phosphatase 859 H Total Protein 6.6 Albumin 2.6 L Globulin 4.0 Albumin/Globulin Ratio 0.7 Vancomycin Trough 20.9 06/04/ 06:40 WBC 15.1 H RBC 3.38 L Hgb 8.3 L Hct 26.4 L MCV 78.2 L MCH 24.5 L MCHC 31.3 RDW 18.2 H Plt Count 203 MPV 7.9 Neutrophils % 79 Lymphocytes % 9 Monocytes % 5 Eosinophils % 3 Basophils % 1 Neutrophils # 12.0 H Lymphocytes # 1.4 Monocytes # 0.7 Eosinophils # 0.5 Basophils # 0.1 Hypochromasia Marked Anisocytosis Slight Microcytosis Slight Sodium Potassium Chloride Carbon Dioxide Anion Gap BUN Creatinine Est GFR (CKD-EPI)AfAm Est GFR (CKD-EPI)NonAf Glucose Calcium Total Bilirubin AST ALT Alkaline Phosphatase Total Protein Albumin Globulin Albumin/Globulin Ratio Vancomycin Trough Mental Status Exam: General Appearance: Patient appears to be stated age and is somnolent.. She is dressed in a hospital gown and is sitting upright in her bed. Behavior: Patient is calmly lying in bed and sleeping. Speech: unable to assess Mood/Affect: unable to assess Suicidality/Homicidality: unable to assess Perceptions: unable to assess Though content/process: unable to assess Memory and concentration: unable to assess Judgment and insight: unable to assess Assessment -History of Anxiety Disorder with benzodiazepine dependence -Adjustment Disorder -Rule out Cluster B personality traits The patient is a 45-year-old female with significant acute stressors including the recent diagnosis of cervical cancer and ongoing stressors of family issues. The patient does have a significant history of trauma and given her history of difficulty maintaining relationships with family, her mood lability, and history of multiple trials of DBT, the patient's presentation is consistent with Borderline Personality Disorder. Plan: -At this time patient DOES NOT meet criteria for inpatient psychiatric admission. Patient does not present with immediate risk of harm to self or others and is not actively psychotic. -Would recommend the following medication changes/additions: No medication changes at this time. - Medications are not indicated for a personality disorder and/or adjustment disorder. Supportive psychotherapy and cognitive behavioral therapies are the treatment of choice. -Psychiatry will continue to follow loosely for brief therapy.
--- NOTE | 2020-09-04 19:23 | PN ---
PROGRESS NOTE DATE OF SERVICE: 09/04/2020 REASON FOR FOLLOWUP: Pneumonia. INTERVAL HISTORY: The patient is afebrile. The patient is breathing more comfortably. Denies any chest pain. Still could have a cough. Still complaining of abdominal pain. No vomiting or diarrhea per the nursing staff. PHYSICAL EXAMINATION: Blood pressure 115/63, pulse of 103, temperature 98.7. She is 94% on 4 L nasal cannula. General description is a middle-aged female lying in in no distress. Respiratory system: Unlabored breathing, decreased intensity of breath sounds. No wheeze. Heart: S1, S2. Regular rate and rhythm. Abdomen soft, no tenderness. LABS: Hemoglobin 8.1 white count 15.1, creatinine 0.95. Blood culture negative. DIAGNOSTIC IMPRESSION AND PLAN: Patient with acute shortness of breath, cough with infiltrate, concerning for possible fluid plus-minus pneumonia. Patient is covered ( ) antibiotics. We will try to obtain a sputum to narrow down antibiotics. Continue meropenem and vanco at this point and continue supportive care. MMODL / IJN: [id number] /
--- NOTE | 2020-09-04 20:30 | P.PN ---
Subjective Progress Note Date: 09/04/20 Principal diagnosis: Cervical Cancer She was resting well today, patient was not woken. Discussed with who is upset and worried about plan for releasing to rehab. She has worked a bit more with nursing per staff. Objective - Vital Signs Vital signs: Vital Signs Temp 97.7 F 09/04/20 11:36 Pulse 103 H 09/04/20 11:36 Resp 20 09/04/20 11:36 BP 115/78 09/04/20 11:36 Pulse Ox 94 L 09/04/20 05:00 Intake & Output 09/04/20 09/04/20 09/05/20 06:59 18:59 06:59 Intake Total 850 Output Total 700 Balance 150 Intake: Intake, IV Titration 850 Amount Meropenem 1 gm In Sodium 100 Chloride 0.9% 100 ml @ 33 .3 mls/hr IVPB Q8HR [facility] Rx#:[id number] Sodium Chloride 0.9% 1, 500 000 ml @ 50 mls/hr IV . Q20H [facility] Rx#:[id number] Vancomycin 1,500 mg In 250 Sodium Chloride 0.9% 250 ml @ 125 mls/hr IVPB Q12H [facility] Rx#:[id number] Output: Urine 700 Other: Voiding Method Indwelling Catheter Indwelling Catheter # Bowel Movements 1 - Exam - Constitutional General appearance: no acute distress, pale, shalloww breathing, diaphoretic - EENT Eyes: edentulous, PERRLA ENT: hard of hearing - Neck Neck: no lymphadenopathy - Respiratory Respiratory: bilateral: CTA - Cardiovascular Rhythm: regular - Gastrointestinal General gastrointestinaltenderness, Ostomy small amount clear yellow liquid - Integumentary Integumentary: pale, no rash - Neurologic Neurologic: CNII-XII intact - Musculoskeletal Musculoskeletal: strength equal bilaterally - Psychiatric Psychiatric: A&O x's 3, inappropriate affect, lethargic, extremly anxious - Labs CBC & Chem 7: 09/04/20 06:40 09/04/20 06:40 Labs: Abnormal Lab Results - Last 24 Hours (Table) 09/04/20 Range/Units 06:40 WBC 15.1 H (3.8-10.6) k/uL RBC 3.38 L (3.80-5.40) m/uL Hgb 8.3 L (11.4-16.0) gm/dL Hct 26.4 L (34.0-46.0) % MCV 78.2 L (80.0-100.0) fL MCH 24.5 L (25.0-35.0) pg RDW 18.2 H (11.5-15.5) % Neutrophils # 12.0 H (1.3-7.7) k/uL Microbiology - Last 24 Hours (Table) 09/01/20 16:40 Blood Culture - Preliminary Blood No Growth after 72 hours 09/01/20 14:18 Blood Culture - Preliminary Blood No Growth after 72 hours 09/01/20 14:18 Blood Culture - Preliminary Blood No Growth after 72 hours Assessment and Plan Plan: Initial presentation with abdominal pain. Diagnosed with cervical cancer in June. She self catheterizes for urinary retention. Admits to Nausea and vomiting as well, which is improved since admission - Patient had bilateral ureteral stents placed on 06/25/2020. IV Antibiotics Cervical Cancer: Near Obstructing Rectal Mass The right ureteral stent appears more inferior than last exam. CT of the abdomen and pelvis: There is some minimal reticular nodular infiltrate at the lung bases. Extensive inflammatory changes in the pelvis with perirectal density measuring up to almost 3 cm in thickness. This is worse than last exam. Consider both inflammatory disease and malignancy. There is bilateral moderate hydronephrosis which appears to same or slightly worse than last exam. Stent malfunction is possible. There is increased reticular nodular interstitial infiltrate the lung bases compared to old exam. 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 - She has not started treatment Probable Pulmonary Emboli: - CTA was felt to be most consistent with PE, with her lack of activity, malignancy, and decreased motivation to work with therapy - At this time felt to risk verse benefit is best to proceed on anticoagulation and repeat CTA Respiratory Insufficiency: - likely a combination between pain medications, anxiety, and lack of movement. Declined Performance: - At this time her performance has decreased although she is working a little harder with PT and talking with psych. - She will need increased performance prior to being eligible for chemo, Dr Alfredo has been asked to evaluate for potential radiation in the interim to he lp control pain and primary tumor. All questions answered as best as possble to stephane, I understand rehab is the current plan on Monday Physician Attest: I have completed the full history and physical and agree with above dictation, dictated as a ascribe.
--- NOTE | 2020-09-04 20:38 | PN ---
PROGRESS NOTE DATE OF SERVICE: 09/04/2020 This 45-year-old woman who was admitted with abdominal pain with locally advanced cervical cancer, is being closely monitored. The patient also had acute hypoxic respiratory failure. The patient also had acute pulmonary embolism. The patient is on anticoagulants. The patient is being closely monitored. PT/OT evaluation, possible ECF rehab. PAST MEDICAL HISTORY: Reviewed. REVIEW OF SYSTEMS: CARDIOVASCULAR As mentioned earlier. RESPIRATORY As mentioned earlier. GI No nausea, vomiting, or diarrhea. No dysuria or hematuria. NERVOUS No numbness or weakness. CURRENT MEDICATIONS: Reviewed include DuoNeb, Tylenol, Eliquis, Flexeril. Dilaudid, meropenem 1 g. Doses reviewed. PHYSICAL EXAMINATION: Alert and oriented x3. Pulse 112, blood pressure 115/78, respiration 20, temperature 97.7, pulse ox 94% on 5 L. HEENT: Conjunctivae normal. Oral mucosa moist. NECK: No jugular venous distention. No lymph node enlargement. CARDIOVASCULAR: S1, S2, muffled. No S3, no S4, RESPIRATORY: Diminished breath sounds at the bases. Scattered rhonchi and crackles. ABDOMEN: Soft, nontender. LEGS: No edema, no swelling. NERVOUS SYSTEM: No focal deficits. LAB STUDIES: WBC 15.2, hemoglobin is 8.3, alkaline phosphatase is 859. ASSESSMENT: 1. Abdominal pain with locally advanced cervical cancer status post abdominal surgery, diverting colostomy. Awaiting definitive treatment. 2. Acute hypoxic respiratory failure which is multifactorial possibly. 3. Acute pulmonary embolism on direct oral anticoagulants. 4. 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 5. Tachycardia, possibly sinus. 6. Diphtheroids species in the blood culture initially, most recent cultures are negative with possible sepsis. 7. Bibasilar pneumonia with interstitial pneumonia possibly gram-negative, present on admission. 8. Acute urinary tract infection with sepsis, present on admission. 9. Acute respiratory acidosis. 10.Elevated D-dimer. 11.Urinary obstruction, hydronephrosis, possible stent malfunction, present on admission. 12.History of recent MediPort placement. 13.Acute renal injury. 14.Acute blood loss anemia. 15.Shortness of breath, multifactorial with COPD acute exacerbation as well as pneumonia. 16.Pain management. 17.Anemia, multifactorial. 18.Elevated alkaline phosphatase. 19.Acute pain syndrome possibly secondary to malignancy. RECOMMENDATIONS AND DISCUSSION: I recommend to continue current medications, continue to monitor, symptomatic treatment. Otherwise, I would recommend to continue the current medication, continue symptomatic treatment. Overall prognosis extremely guarded because of multiple complex medical issues and further recommendations to follow. MMODL / IJN: [id number] /
[2020-09-05] MEDS: CYCLOBENZAPRINE 5 MG TAB PO PRN ×2 (02:34→22:02)
[2020-09-05] MEDS: VANCOMYCIN 1,500 MG in SODIUM CHLORIDE 0.9% 250 ML IVPB SCH ×2 (02:34→15:45)
[2020-09-05] MEDS: HYDROmorphone 2 MG TAB PO PRN ×5 (03:39→23:56)
[2020-09-05] MEDS: SODIUM CHLORIDE 0.9% 1,000 ML IV SCH ×2 (03:40→23:55)
[2020-09-05] MEDS: IPRATROPIUM-ALBUTEROL 3 ML NEB INHALATION SCH ×4 (08:37→20:38)
[2020-09-05] MEDS: APIXABAN 5 MG TAB PO SCH ×2 (08:56→20:55)
[2020-09-05] MEDS: metroNIDAZOLE 500 MG TAB PO SCH ×3 (08:56→23:55)
[2020-09-05] MEDS: PANTOPRAZOLE 40 MG TABLET PO SCH ×2 (08:56→20:54)
[2020-09-05] MEDS: METOPROLOL TARTRATE 12.5 MG TAB PO SCH ×2 (09:14→20:32)
[2020-09-05] MEDS: MEROPENEM 1 GM in SODIUM CHLORIDE 0.9% 100 ML IVPB SCH ×3 (09:16→23:55)
[2020-09-05] MEDS: NYSTATIN 100,000 UNIT/ML SUSP 500,000 UNIT/5 ML CUP PO SCH ×4 (09:17→21:30)
--- NOTE | 2020-09-05 10:56 | NM ---
EXAMINATION TYPE: NM bone scan whole body DATE OF EXAM: 09/05/2020 COMPARISON: None HISTORY: Rule out metastatic disease. Delayed whole-body scanning was performed following the injection of 23.4 mCi Tc 99m MDP. Images acq uired 3 hours post injection. FINDINGS: There are scattered areas of uptake in the shoulders, hips, knees and ankles consistent with arthriti c change. There is a focal area of increased uptake of radiotracer in the left inferior pubic ramus possibly a Say metastatic deposits. There is radiotracer uptake in a dilated left renal collecting system and ureter consistent with hydr onephrosis. IMPRESSION: 1. Possible small metastatic deposit left pubic bone as described above. 2. Left-sided hydronephrosis.
[2020-09-05] MEDS: TRIMETHOBENZAMIDE 100 MG/ML 2 ML VIAL IM PRN (11:33)
[2020-09-05 14:18] LABS: Appearance,Urine Clear (Clear); Bacteria,Urine Rare /hpf; Bilirubin,Urine Negative (Negative); Blood,Urine Large (Negative); Color,Urine Yellow; Glucose,Urine (UA) Negative (Negative); Hyaline Casts,Urine 1 /lpf (0-2); Ketones,Urine Negative (Negative); Leukocyte Esterase,Urine Moderate (Negative); Mucus,Urine Rare /hpf; Nitrite,Urine Negative (Negative); PH, Urine 7.5 (5.0-8.0); Protein,Urine 1+ (Negative); RBC,Urine >182 /hpf (0-5); Specific Gravity,Urine 1.014 (1.001-1.035); Urobilinogen,Urine <2.0 mg/dL (<2.0); WBC,Urine 47 /hpf (0-5)
--- NOTE | 2020-09-05 14:43 | PN ---
PROGRESS NOTE DATE OF SERVICE: 09/04/2020 This 45-year-old woman who was admitted with abdominal pain with locally advanced cervical cancer is being closely monitored at this time. The patient is complaining of significant shortness of breath also. The bone scan done yesterday showed possible small metastatic deposit in the left pubic bone. Otherwise, left-sided hydronephrosis also noted. Patient is being closely monitored. The white count is 15.1, hemoglobin is 8.3. PAST MEDICAL HISTORY: Reviewed. REVIEW OF SYSTEMS: CARDIOVASCULAR No angina or palpitations. RESPIRATORY No cough, no hemoptysis. GI As mentioned earlier. No dysuria or hematuria. NERVOUS No numbness or weakness. CURRENT MEDICATIONS: Reviewed include Tylenol, Eliquis, Flexeril. Lopressor, Flagyl, vancomycin. Doses reviewed. PHYSICAL EXAMINATION: Patient is alert, oriented x3. Pulse is 120, blood pressure 106/65, respiration 22, temperature 97.4, pulse ox 94% on 6 L. HEENT: Conjunctivae normal. Oral mucosa moist. NECK: No jugular venous distention. No lymph node enlargement. CARDIOVASCULAR: S1, S2, muffled. No S3, no S4, RESPIRATORY: Diminished breath sounds at the bases. Scattered rhonchi and crackles. ABDOMEN: Soft. Mild diffuse discomfort on palpation. LEGS: No edema, no swelling. NERVOUS SYSTEM: No focal deficits. LABS: 2D echo showed ejection fraction 60-70% and severe pulmonary hypertension but RV size is normal. Other labs: WBC 15.1, hemoglobin is 8.3, and alkaline phosphatase is 849. ASSESSMENT: 1. Abdominal pain with locally advanced cervical cancer status post abdominal surgery with diverting colostomy, awaiting definitive treatment. 2. Acute hypoxic respiratory failure, multifactorial. 3. Acute pulmonary embolism on direct anticoagulants. 4. 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 5. Tachycardia, possibly sinus. 6. Pulmonary hypertension on 2D echo. 7. Diphtheroids species in the blood culture initially but most recent cultures are negative with possible sepsis present on admission. 8. Bibasilar pneumonia with interstitial pneumonia possibly gram-negative, present on admission. 9. Acute urinary tract infection with sepsis, present on admission. 10.Acute respiratory acidosis. 11.Elevated D-dimer. 12.Urinary obstruction with left hydronephrosis with possible stent malfunction, present on admission. 13.History of recent MediPort placement. 14.Acute renal injury. 15.Acute blood loss anemia. 16.Shortness of breath, multifactorial, COPD acute exacerbation as well as pneumonia. 17.Pain management. 18.Anemia, multifactorial. 19.Elevated alkaline phosphatase. 20.Acute pain syndrome possibly secondary to malignancy. 21.Elevated alkaline phosphatase. 22.Bone scan showing possible metastasis in the pubic bone. 23.FULL CODE. 24.Gait dysfunction. RECOMMENDATIONS: In this 45-year-old woman who presented with multiple complex issues, we will monitor the patient closely, continue the current management, continue symptomatic treatment. Continue with Eliquis 10 mg p.o. b.i.d. for 1 week and then 5 mg p.o. b.i.d. Otherwise, we will continue with bronchodilators. Meropenem has been ( ). Most recent cultures are negative. I would also supplement vitamins and continue to monitor. Pain management. Guarded prognosis because of multiple complex medical issues. Further recommendations to follow. MMDESTINL / IJN: [id number] /
--- NOTE | 2020-09-05 18:14 | PN ---
PROGRESS NOTE DATE OF SERVICE: 09/05/2020. REASON FOR FOLLOW UP: Pneumonia. INTERVAL HISTORY: The patient had a low grade fever of 99.7 this morning. The patient afebrile since then. Mentions she is breathing more comfortably. Denies any chest pain. She did have a cough with occasional sputum. No vomiting. No abdominal pain and no diarrhea. PHYSICAL EXAMINATION: Blood pressure 106/64, pulse of 104, temperature 97.9. She is 95% on 6 L nasal cannula. General description is a middle-aged female lying in in no distress. Respiratory system: Unlabored breathing, decreased breath sounds at the base. No wheeze. Heart S1, S2. Regular rate and rhythm. Abdomen soft. Mild tenderness. LABS: Urine is positive. Sputum has been ( ) which is pending. Blood culture negative. DIAGNOSTIC IMPRESSION AND PLAN: Patient with shortness of breath and cough which is multifactorial did have evidence of PE plus-minus component of pneumonia. Sputum has been obtained and will be followed. Continue vancomycin, meropenem. Adjust antibiotic further based on the cultures. Continue supportive care. MMODL / IJN: [id number] /
[2020-09-05] MEDS ORDERED: FUROSEMIDE 10 MG/ML 4 ML VIAL IV ONE (20:31)
[2020-09-05] MEDS ORDERED: METOPROLOL TARTRATE 25 MG TAB PO STA (20:31)
[2020-09-06] MEDS: VANCOMYCIN 1,500 MG in SODIUM CHLORIDE 0.9% 250 ML IVPB SCH ×2 (02:10→13:31)
[2020-09-06] MEDS: HYDROmorphone 2 MG TAB PO PRN ×5 (03:26→23:31)
[2020-09-06] MEDS: ACETAMINOPHEN TAB 325 MG TAB PO PRN ×2 (06:44→18:53)
--- NOTE | 2020-09-06 07:20 | XR ---
EXAMINATION TYPE: XR chest 1V portable DATE OF EXAM: 09/06/2020 COMPARISON: 09/20/2020 HISTORY: Shortness of breath and fever TECHNIQUE: Single frontal view of the chest is obtained. FINDINGS: There are scattered ill-defined partially consolidative opacities and interstitial opaciti es in the lung bases bilaterally slightly worse on the current study particularly in the right lung b ase when compared to previous. There is no pneumothorax or pleural effusion. The heart size is normal and the pulmonary vasculature congested. The osseous structures are intact. Central venous catheter in the right is unchanged in position with the tip in SVC/RA junction. IMPRESSION: Mild bibasilar opacities, mildly worsened the right lung base when compared to previous. Findings consistent with an acute cardiopulmonary process.
[2020-09-06] MEDS: METOPROLOL TARTRATE 12.5 MG TAB PO SCH ×2 (08:04→22:13)
[2020-09-06] MEDS: IPRATROPIUM-ALBUTEROL 3 ML NEB INHALATION SCH ×4 (08:49→19:58)
[2020-09-06] MEDS: MEROPENEM 1 GM in SODIUM CHLORIDE 0.9% 100 ML IVPB SCH ×2 (09:13→16:00)
[2020-09-06] MEDS: NYSTATIN 100,000 UNIT/ML SUSP 500,000 UNIT/5 ML CUP PO SCH ×4 (09:14→22:13)
[2020-09-06] MEDS: APIXABAN 5 MG TAB PO SCH ×2 (09:14→22:12)
[2020-09-06] MEDS: PANTOPRAZOLE 40 MG TABLET PO SCH ×2 (09:14→22:11)
[2020-09-06] MEDS: metroNIDAZOLE 500 MG TAB PO SCH (09:15)
[2020-09-06] MEDS ORDERED: VANCOMYCIN TROUGH DUE 1 EACH MISC MISCELLANE ONE (13:00)
[2020-09-06] MEDS: CYCLOBENZAPRINE 5 MG TAB PO PRN (13:31)
[2020-09-06] MEDS: TRIMETHOBENZAMIDE 100 MG/ML 2 ML VIAL IM PRN (16:43)
[2020-09-06] MEDS: BARIUM SULFATE 450 ML ORAL.SUSP BOTTLE PO PRN ×2 (16:45→19:45)
--- NOTE | 2020-09-06 19:30 | PN ---
PROGRESS NOTE DATE OF SERVICE: 09/06/2020 REASON FOR FOLLOWUP: Pneumonia and complicated UTI. INTERVAL HISTORY: Patient did spike a fever this morning of 102 degrees Fahrenheit. The patient afebrile since then. She has been complaining of shortness of breath. Did have a cough, not bringing sputum though. Still complaining of abdominal pain, nausea, but no vomiting or diarrhea. PHYSICAL EXAMINATION: Blood pressure 107/75, pulse of 123, temp 97.7. She is 94% on 8 L nasal cannula. General description is a middle-aged female lying in bed in no distress. Respiratory system: Unlabored breathing, decreased breath sounds in the base. No wheeze. Heart S1, S2. Regular rate and rhythm. ABDOMEN: Soft, no tenderness. No guarding. No rigidity. LABS: Vanco trough elevated 27.3, and creatinine slightly jumped up to 1.15. DIAGNOSTIC IMPRESSION AND PLAN: Patient with pneumonia now with a new fever. The patient did have slight worsening of the kidney function. Vancomycin trough is elevated. We will discontinue vancomycin. Add Zyvox. Continue with meropenem. CT of the chest and abdomen has been ordered. Further adjustment of antibiotic will be based on the culture report. Continue supportive care. MMODL / IJN: [id number] /
--- NOTE | 2020-09-06 20:15 | PN ---
PROGRESS NOTE DATE OF SERVICE: 09/06/2020 This 45-year-old woman was admitted with abdominal pain, had had locally advanced cervical cancer surgery. The patient has multiple medical issues, including respiratory difficulties also. A chest x-ray was repeated today which showed bilateral lesions could indicate continued pneumonia or even atelectasis. The patient being closely monitored. Cultures are negative so far. After initial possibly patient on broad spectrum IV antibiotics. Multiple consultants are following the patient closely. The patient also had some amount of noncompliance with medications also. Please refer to the staff notes for further information. PAST MEDICAL HISTORY: Reviewed. REVIEW OF SYSTEMS: CARDIOVASCULAR SYSTEM: No angina or palpitations. GI: As mentioned earlier. : No dysuria. NERVOUS SYSTEM: No numbness or weakness. CURRENT MEDICATIONS: Reviewed and include: Tylenol, DuoNeb, Eliquis and Linezolid. Doses are reviewed. PHYSICAL EXAMINATION: Patient is alert and oriented times three. Pulse 116, blood pressure is 107/75, respiration 21, temperature 97.4, pulse ox 94% on 8 L. HEENT: Conjunctivae normal. NECK: No JVD. CARDIOVASCULAR: S1, S2 muffled. RESPIRATION: Breath sounds diminished in the bases. Bilateral scattered rhonchi and crackles. ABDOMEN: Soft, nontender. LEGS are no edema. No swelling. NERVOUS SYSTEM: No focal deficits. LAB STUDIES: WBC 15.2, hemoglobin 9.3. ASSESSMENT: 1. Abdominal pain with locally advanced cervical cancer with status post abdominal surgery with diverting colostomy, awaiting definitive treatment. 2. Acute hypoxic respiratory failure, multifactorial. 3. Possible bilateral pneumonia and atelectasis. 4. Acute pulmonary embolism on direct anticoagulants agents. 5. 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 6. Tachycardia possibly sinus. 7. Pulmonary hypertension, 2D echo. 8. Diphtheroids species in the blood culture initially but most recent cultures are negative with possible sepsis, present on admission. 9. Acute urinary tract infection with sepsis present on admission. 10.Acute chest acute respiratory acidosis. 11.Elevated D-dimer. 12.Urinary obstruction with left hydronephrosis. 13.History of recent MediPort placement. 14.Acute renal injury. 15.Acute blood loss anemia. 16.Shortness of breath, multifactorial, chronic obstructive pulmonary disease acute exacerbation as well as pneumonia. 17.Pain management. 18.Anemia, multifactorial. 19.Elevated alkaline phosphatase. 20.Acute pain syndrome, possibly secondary to malignancy. 21.Elevated alkaline phosphatase. 22.Bone scan showing possible metastatic to the pubic bone. 23.Gait dysfunction. 24.FULL CODE. RECOMMENDATIONS AND DISCUSSION: I recommend to continue current medications, symptomatic treatment. Otherwise, at this time, I recommend continue the current medications. Empiric antibiotics. I would also recommend a CT scan of the chest, abdomen and pelvis with no IV contrast with p.o. contrast. The patient has multiple complex medical issues and currently severely hypoxic and we will continue to monitor along with along with Pulmonary. The prognosis guarded. Further recommendations to follow and once the patient is stabilized, possible ECF rehab. MMDESTINL / MAGDAN: [id number] / DALE
--- NOTE | 2020-09-06 21:47 | CT ---
EXAMINATION TYPE: CT ChestAbdPelvis wo con DATE OF EXAM: 09/06/2020 COMPARISON: 08/20/2020 and 08/14/2020 HISTORY: fever, abdominal pain CT DLP: 1046.1 mGycm Automated exposure control for dose reduction was used. Images obtained from the thoracic inlet to the floor the pelvis with oral contrast only. There is patchy interstitial and airspace infiltrates in both lungs. There is some mild atelectasis a t the lung bases. There are small pleural effusions. Heart size is normal. There is no pericardial ef fusion. There is no mediastinal adenopathy. There are no hilar masses. Liver spleen stomach pancreas appear intact. Bile ducts are nondilated. Gallbladder appears normal. There is no adrenal mass. There is bilateral hydronephrosis. There are bilateral ureteral stents. The re is no retroperitoneal adenopathy. Stents appear to be in good position. There is Carbone catheter in the urinary bladder. There is presacral edema. This measures up to 2 cm in thickness. There is no in guinal hernia. There is minimal fluid in the paracolic gutters. There are some contrast filled mildly distended small bowel loops that measure up to 3.8 cm. There is colostomy on the left side. There ar e skin karlene in the midline abdomen. The thoracic and lumbar vertebra show normal alignment. There is no compression fracture. Bony pelvis is intact. IMPRESSION: There is perirectal density not significantly different than 08/14/2020 exam. Bilateral hydronephrosis unchanged. No renal atrophy. Bilateral patchy pulmonary infiltrates slightly worse than last exam of 08/28/2020. Distended small bowel suggestive of mild ileus. I do not suspect a mechanical bowel obstruction.
[2020-09-06] MEDS: LINEZOLID 600 MG in DEXTROSE/WATER 1 300ML.BAG IVPB SCH (22:10)
[2020-09-06] MEDS: SODIUM CHLORIDE 0.9% 1,000 ML IV SCH (22:14)
[2020-09-07] MEDS: MEROPENEM 1 GM in SODIUM CHLORIDE 0.9% 100 ML IVPB SCH ×4 (00:45→23:25)
[2020-09-07] MEDS: HYDROmorphone 2 MG TAB PO PRN ×5 (02:35→23:25)
[2020-09-07] MEDS: IPRATROPIUM-ALBUTEROL 3 ML NEB INHALATION SCH ×4 (08:37→21:53)
[2020-09-07] MEDS: PANTOPRAZOLE 40 MG TABLET PO SCH ×2 (08:56→20:30)
[2020-09-07] MEDS: APIXABAN 5 MG TAB PO SCH ×2 (08:56→20:30)
[2020-09-07] MEDS: METOPROLOL TARTRATE 12.5 MG TAB PO SCH ×2 (08:56→20:32)
[2020-09-07] MEDS: TRIMETHOBENZAMIDE 100 MG/ML 2 ML VIAL IM PRN (08:56)
[2020-09-07] MEDS: NYSTATIN 100,000 UNIT/ML SUSP 500,000 UNIT/5 ML CUP PO SCH ×4 (08:57→23:25)
[2020-09-07] MEDS: LINEZOLID 600 MG in DEXTROSE/WATER 1 300ML.BAG IVPB SCH ×2 (12:07→20:32)
--- NOTE | 2020-09-07 13:32 | PN ---
PROGRESS NOTE DATE OF SERVICE: 09/07/2020 REASON FOR FOLLOWUP: Pneumonia and UTI. INTERVAL HISTORY: Patient did spike a fever last night of 101.2 degrees Fahrenheit. This morning she did have a fever of 99.8. The patient is breathing comfortably. Denies having any chest pain. Did have a cough, not bringing up sputum though. Still complaining of abdominal pain. No worsening. No vomiting. No diarrhea reported by the nursing staff. PHYSICAL EXAMINATION: Blood pressure 103/72 with a pulse of 113. Temperature 99.9. General description is a middle-aged female lying in bed in no distress. Respiratory system: Unlabored breathing, decreased breath sounds in the base. No wheeze. HEART: S1, S2. Regular rate and rhythm. ABDOMEN: Soft, not distended. LABS: Creatinine 1.21. Urine so far negative. Blood culture repeat negative. Blood culture has been negative. DIAGNOSTIC IMPRESSION AND PLAN: The patient with stage IIIB cervical cancer with bilateral hydronephrosis, status post diverting colostomy concerning for pneumonia. Patient on broad spectrum antibiotics. Culture have been negative. Clinical course remains to be complicated. Continue current antibiotics. Hospice may be better option. MMODL / IJN: [id number] /
[2020-09-07] MEDS: SALT AND SODA MOUTHWASH 1,000 ML PO SCH ×4 (13:57→23:28)
[2020-09-07] MEDS ORDERED: VANCOMYCIN 1,500 MG in SODIUM CHLORIDE 0.9% 250 ML IVPB SCH (14:00)
--- NOTE | 2020-09-07 18:54 | P.PN ---
Progress Note - Text Progress Note Date: 09/07/20 Patient currently has an indwelling Carbone catheter. The urine is faintly bloody. The most recent computed tomography scan reveals that the proximal curl of the right ureteral stent has migrated distally somewhat, though I am not concerned as the area of ureteral obstruction is within the distal ureter. Her serum creatinine level has alternated between being normal and mildly elevated. Arrangements will be made for her to undergo bilateral ureteral stent change later this month.
--- NOTE | 2020-09-07 19:16 | P.PN ---
Subjective Progress Note Date: 09/07/20 Principal diagnosis: Cervical cancer In f/u today pt states she is starting to try and work with rehab. Her incision is sore but not unrealistic, ostomy is working. She is working to breathe Objective - Vital Signs Vital signs: Vital Signs Temp 98.8 F 09/07/20 12:30 Pulse 138 H 09/07/20 12:30 Resp 30 H 09/07/20 12:30 BP 109/71 09/07/20 12:30 Pulse Ox 89 L 09/07/20 12:30 Intake & Output 09/06/20 09/07/20 09/07/20 18:59 06:59 18:59 Intake Total 170 Output Total 450 600 500 Balance -450 -600 -330 Weight 94.1 kg Intake: Intake, IV Titration 170 Amount Meropenem 1 gm In Sodium 100 Chloride 0.9% 100 ml @ 33 .3 mls/hr IVPB Q8HR [facility] Rx#:[id number] Sodium Chloride 0.9% 1, 70 000 ml @ 50 mls/hr IV . Q20H [facility] Rx#:[id number] Output: Urine 450 600 350 Stool 150 Other: Voiding Method Indwelling Catheter Indwelling Catheter Indwelling Catheter - Constitutional General appearance: Present: cooperative, mild distress, obese - EENT EENT Comment(s): coated tongue Eyes: Present: anicteric sclerae, EOMI ENT: Present: hearing grossly normal - Respiratory Respiratory: bilateral: CTA, diminished (bases) - Cardiovascular Details: tachy Heart sounds: normal: S1, S2 Abnormal Heart Sounds: Absent: systolic murmur, diastolic murmur, rub, S3 Gallop, S4 Gallop, click, other - Peripheral edema leg Peripheral Edema: bilateral: None - Gastrointestinal Gastrointestinal Comment(s): ostomy has liquid brown stool General gastrointestinal: Present: normal bowel sounds, soft - Neurologic Neurologic: Present: CNII-XII intact - Musculoskeletal Musculoskeletal: Present: generalized weakness - Psychiatric Psychiatric Comment(s): anxious Psychiatric: Present: A&O x's 3 - Labs CBC & Chem 7: 09/04/20 06:40 09/07/20 06:45 Labs: Abnormal Lab Results - Last 24 Hours (Table) 09/07/20 Range/Units 06:45 Creatinine 1.21 H (0.52-1.04) mg/dL Microbiology - Last 24 Hours (Table) 09/06/20 08:45 Blood Culture - Preliminary Blood No Growth after 24 hours 09/05/20 17:14 Gram Stain - Final Sputum Sputum Culture - Final 09/06/20 07:35 Blood Culture - Preliminary Blood No Growth after 24 hours 09/05/20 13:25 Urine Culture - Final Urine,Voided 09/01/20 16:40 Blood Culture - Preliminary Blood No Growth after 120 hours 09/01/20 14:18 Blood Culture - Preliminary Blood No Growth after 120 hours 09/01/20 14:18 Blood Culture - Preliminary Blood No Growth after 120 hours - Imaging and Cardiology CT scan - abdomen: report reviewed CT scan - chest: report reviewed CT scan - pelvis: report reviewed CT CAP-bilateral hydronephrosis stable, rectal mass unchanged. Worsening bilateral patchy pulmonary infiltrates, possible mild ileus 2/2 dilated small bowel Assessment and Plan (1) Pulmonary emboli Narrative/Plan: Eliquis loading dose BID continues. No s/s of overt bleeding Current Visit: Yes Status: Acute Priority: High Code(s): I26.99 - OTHER PULMONARY EMBOLISM WITHOUT ACUTE COR PULMONALE SNOMED Code(s): 85226915 (2) Cervical cancer Current Visit: Yes Status: Acute Priority: High Code(s): C53.9 - MALIGNANT NEOPLASM OF CERVIX UTERI, UNSPECIFIED SNOMED Code(s): 793503677 (3) Metastasis from cervical cancer Narrative/Plan: Poss small metastatic deposit in lt iliac bone. Rectal mets (or cervical mass growing into rectal area?). Ureteral obstruction from malignancy, has had stents, Urology planning to exchange later this month Pt has not started any systemic cancer treatment yet. Now, pt has had diverting ostomy surgery-no chemo for about 4 weeks. Rad Onc has seen, no radiation for at least 2 weeks post op Current Visit: Yes Status: Acute Priority: High Code(s): C79.9 - SECONDARY MALIGNANT NEOPLASM OF UNSPECIFIED SITE; C53.9 - MALIGNANT NEOPLASM OF CERVIX UTERI, UNSPECIFIED SNOMED Code(s): 944965275 (4) UTI (urinary tract infection) Narrative/Plan: ID following closely-aggressive abx mgmt. Current Visit: Yes Status: Acute Priority: High Code(s): N39.0 - URINARY TRACT INFECTION, SITE NOT SPECIFIED SNOMED Code(s): 68537408 Plan: Pt told that she cannot have any cancer treatment for several weeks post op so, it is in her best interest to get moving around and take advantage of rehab. She does understand that in her current condition she would not be a candidate for treatment of any kind. Tx will be held until pt has had the opportunity to rehabilitate, recover from acute illness and once pt has a PS adequate to start cancer treatment
--- NOTE | 2020-09-07 21:04 | PN ---
PROGRESS NOTE DATE OF SERVICE: 09/07/2020. HISTORY: This is a 45-year-old woman who was admitted with locally advanced cervical cancer and as well as Surgery and multiple complications, being closely monitored. Patient extremely short of breath. The patient on broad spectrum IV antibiotics. The cultures are negative so far. The CT scan of the abdomen and pelvis is done yesterday, reviewed personally by me, showed perirectal density,not significantly different, and bilateral hydronephrosis and bilateral patchy infiltrate, right more worse than left, possibly indicating pneumonia. Multiple consultants are following the patient with Hematology, Oncology Infectious Disease. PAST MEDICAL HISTORY: Reviewed. REVIEW OF SYSTEMS: CARDIOVASCULAR SYSTEM: No angina. RESPIRATORY: As mentioned. GI: As mentioned. : As mentioned. NERVOUS SYSTEM: No numbness or weakness. CURRENT MEDICATIONS: Reviewed include Tylenol, DuoNeb, Eliquis, Dilaudid, lidocaine, doses reviewed. PHYSICAL EXAMINATION: Patient is alert and oriented x2. Pulse is 130 and regular blood pressure 120/57, temperature normal, pulse ox 94% on 2 L high-flow nasal cannula. NECK: No JVD. CARDIOVASCULAR: S1, S2 muffled. RESPIRATORY SYSTEM: Breath sounds diminished at the bases. Few scattered rhonchi. ABDOMEN: Soft, nontender. No mass. LEGS: No edema. 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 LAB STUDIES: WBC 15.2, hemoglobin is 8.3, and creatinine is 1.15. UA noted. ASSESSMENT: 1. Abdominal pain with locally advanced cervical cancer status post abdominal surgery with diverting colostomy, awaiting definitive treatment. 2. Acute hypoxic respiratory failure, multifactorial. 3. Possible bilateral pneumonia and atelectasis. 4. Acute pulmonary embolism on direct anticoagulation. 5. 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 6. Tachycardia possibly sinus. 7. Pulmonary hypertension, 2D echo. 8. Diphtheroids species in the blood culture initially but most recently cultures negative with possible sepsis present on admission. 9. Acute urinary tract infection with sepsis present on admission. 10.Acute respiratory acidosis. 11.Elevated D-dimer. 12.Urinary obstruction with left hydronephrosis. 13.History of recent MediPort placement. 14.Acute renal injury. 15.Acute blood loss anemia. 16.Shortness of breath multifactorial COPD acute exacerbation as well as pneumonia. 17.Pain management. 18.Anemia multifactorial. 19.Elevated alkaline phosphatase. 20.Acute pain syndrome possibly secondary to malignancy. 21.Elevated alkaline phosphatase. 22.Bone scan showing possible metastasis of the pubic bone. 23.Gait dysfunction. 24.FULL CODE. RECOMMENDATIONS AND DISCUSSION: I recommend to continue current management and continue the antibiotics continue the rest of the medications. PT/OT evaluation and nutrition. Prognosis extremely guarded because of multiple complex medical issues. Further recommendations to follow. MMDESTINL / IJN: [id number] /
[2020-09-07] MEDS: SODIUM CHLORIDE 0.9% 1,000 ML IV SCH (22:09)
[2020-09-08] MEDS: SALT AND SODA MOUTHWASH 1,000 ML PO SCH ×5 (05:16→23:32)
[2020-09-08] MEDS: HYDROmorphone 2 MG TAB PO PRN ×3 (06:20→21:25)
[2020-09-08] MEDS: IPRATROPIUM-ALBUTEROL 3 ML NEB INHALATION SCH ×4 (08:20→20:48)
[2020-09-08] MEDS: NYSTATIN 100,000 UNIT/ML SUSP 500,000 UNIT/5 ML CUP PO SCH ×4 (08:59→22:03)
[2020-09-08] MEDS: APIXABAN 5 MG TAB PO SCH ×2 (08:59→21:24)
[2020-09-08] MEDS: PANTOPRAZOLE 40 MG TABLET PO SCH ×2 (08:59→21:24)
[2020-09-08] MEDS: MEROPENEM 1 GM in SODIUM CHLORIDE 0.9% 100 ML IVPB SCH ×3 (08:59→23:32)
[2020-09-08] MEDS: METOPROLOL TARTRATE 12.5 MG TAB PO SCH ×2 (08:59→21:24)
[2020-09-08] MEDS: LINEZOLID 600 MG in DEXTROSE/WATER 1 300ML.BAG IVPB SCH ×2 (09:00→21:25)
--- NOTE | 2020-09-08 09:51 | P.PN ---
Subjective Progress Note Date: 09/07/20 Principal diagnosis: cervical cancer The patient showed some slight improvement on Monday only requiring 4 L of O2 and getting up to a chair with physical therapy. Now the patient unfortunately is again requiring 10 L high flow. She appears dyspneic, and reports discomfort along the left chest wall. She states she is still unable to ambulate. She is up in a chair today. She states she is unable to eat as almost any food makes her stomach cramp and feel nauseous. Objective - Vital Signs Vital signs: Vital Signs Temp 99.3 F 09/08/20 04:56 Pulse 132 H 09/08/20 08:31 Resp 20 09/08/20 04:56 BP 101/70 09/08/20 04:56 Pulse Ox 96 09/08/20 04:56 Intake & Output 09/07/20 09/08/20 09/08/20 18:59 06:59 18:59 Intake Total 520 880 Output Total 500 500 Balance 20 380 Weight 94.1 kg Intake: Intake, IV Titration 520 400 Amount Linezolid 600 mg In 300 300 Dextrose/Water 1 300ml. bag @ 150 mls/hr IVPB Q12HR [facility] Rx#:[id number] Meropenem 1 gm In Sodium 100 100 Chloride 0.9% 100 ml @ 33 .3 mls/hr IVPB Q8HR [facility] Rx#:[id number] Sodium Chloride 0.9% 1, 120 000 ml @ 50 mls/hr IV . Q20H [facility] Rx#:[id number] Oral 480 Output: Urine 350 400 Stool 150 100 Other: Voiding Method Indwelling Catheter Indwelling Catheter - Constitutional General appearance: Present: mild distress - EENT Eyes: Present: EOMI, PERRLA ENT: Present: hearing grossly normal - Neck Neck: Absent: lymphadenopathy - Respiratory Respiratory: bilateral: diminished - Cardiovascular Rhythm: regular (+Tachy) - Gastrointestinal General gastrointestinal: Absent: tenderness - Integumentary Integumentary: Present: pale - Neurologic Neurologic: Present: CNII-XII intact - Psychiatric Psychiatric: Present: A&O x's 3, appropriate affect - Labs CBC & Chem 7: 09/04/20 06:40 09/08/20 04:50 Labs: Abnormal Lab Results - Last 24 Hours (Table) 09/08/20 Range/Units 04:50 Creatinine 1.16 H (0.52-1.04) mg/dL Microbiology - Last 24 Hours (Table) 09/01/20 16:40 Blood Culture - Final Blood No Growth after 144 hours 09/01/20 14:18 Blood Culture - Final Blood No Growth after 144 hours 09/01/20 14:18 Blood Culture - Final Blood No Growth after 144 hours 09/06/20 08:45 Blood Culture - Preliminary Blood No Growth after 24 hours 09/05/20 17:14 Gram Stain - Final Sputum Sputum Culture - Final 09/06/20 07:35 Blood Culture - Preliminary Blood No Growth after 24 hours - Imaging and Cardiology CT scan - abdomen: report reviewed, image reviewed CT scan - chest: report reviewed, image reviewed CT Scan - head: report reviewed, image reviewed Assessment and Plan Assessment: The patient is a 45-year-old female with a history of 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 She is status post diverting colostomy. The patient has been quite slow to recover, and has had difficulty with dyspnea. 1. Dyspnea: The patient is being followed by infectious disease, and her most recent CT scan of the chest does show some patchy scattered infiltrates. There was some question of small PE on an earlier CT. The patient is unfortunately still struggling and requiring 10 L of oxygen. We will request the pulmonary revaluate the patient as she is not progressing. 2. Cervical cancer: As noted above, the patient presents with locally advanced disease. I did review her recent bone scan, and I was unable to find a CT correlate to the pubic uptake. I am not certain that the patient has metastatic disease, but her disease is quite locally advanced. I discussed with the patient that as she has still been unable to walk and has had minimal functional progress, I am concerned that she will not tolerate treatment. I explained that hospice care may be appropriate for her in this situation. She was quite opposed to that after I brought it up, but I explained we would need to see some functional improvement before therapy could be safely started. Time with Patient: Less than 30
[2020-09-08] MEDS: TRIMETHOBENZAMIDE 100 MG/ML 2 ML VIAL IM PRN (10:53)
[2020-09-08] MEDS: SODIUM CHLORIDE 0.9% 1,000 ML IV SCH (14:07)
[2020-09-08] MEDS: methylPREDNISolone SOD SUCCI 125 MG/2 ML VIAL IV SCH ×2 (15:53→21:25)
--- NOTE | 2020-09-08 15:55 | PN ---
PROGRESS NOTE DATE OF SERVICE: 09/08/2020 This 45-year-old woman was admitted with locally advanced cervical cancer, had surgery, but the patient had multiple other medical problems including respiratory difficulties including pneumonia, pulmonary embolism, and hypoxic respiratory failure. The cultures are negative so far. The most recent ones. The patient is also on empiric antibiotics. Multiple consultants following the patient closely. The patient also has significant pain syndrome also. The patient also has an element of noncompliance, but currently the patient appears to be agreeable to the treatment. The patient is currently on Zyvox and meropenem offering widespread coverage. The patient being closely monitored at this time. The blood cultures including sputum, urine and blood are negative on multiple occasions. No chest pain. No palpitations. No fever. PAST MEDICAL HISTORY: Reviewed. REVIEW OF SYSTEMS: CARDIOVASCULAR: No angina. No palpitations. RESPIRATORY SYSTEM: As mentioned earlier. GI: As mentioned earlier. : No dysuria. NERVOUS SYSTEM: No numbness or weakness. CURRENT MEDICATIONS: Reviewed and include: Tylenol, DuoNeb, Eliquis, Dilaudid, Zyvox, meropenem, p.r.n. medication. Doses are reviewed. PHYSICAL EXAMINATION: Patient is alert, oriented x3. Pulse is 124, blood pressure is 103/70, respiration 20, temperature 98.7, pulse ox 97% on 10 L. HEENT: Conjunctivae normal. NECK: No JVD. CARDIOVASCULAR: S1, S2 muffled. RESPIRATION: Breath sounds diminished in the bases. A few scattered rhonchi and crackles. ABDOMEN: Soft, nontender. LEGS are no edema. No swelling. NERVOUS SYSTEM: No focal deficits. LABS: Noted. BMP not available. WBC 15.2, hemoglobin is 8.3. ASSESSMENT: 1. Abdominal pain with locally advanced cervical cancer, status post abdominal surgery with diverting colostomy, awaiting definitive treatment. 2. Acute hypoxic respiratory failure, multifactorial. 3. Possible bilateral pneumonia and atelectasis. 4. Acute pulmonary embolism on direct anticoagulants. 5. 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 6. Tachycardia possibly sinus, multifactorial. 7. Pulmonary hypertension on the 2D echo. 8. Diphtheroids species in the blood culture initially but most recent cultures are negative. 9. Acute urinary tract infection with possible sepsis, present on admission. 10.Acute respiratory acidosis. 11.Elevated D-dimer. 12.Urinary obstruction with left hydronephrosis. 13.History of recent MediPort placement. 14.Acute renal injury. 15.Acute blood loss anemia. 16.Shortness of breath, multifactorial, chronic obstructive pulmonary disease acute exacerbation as well as pneumonia. 17.Pain management. 18.Anemia, multifactorial. 19.Elevated alkaline phosphatase. 20.Acute pain syndrome, possibly secondary to malignancy. 21.Bone scan showing possible metastasis of the pelvic bone. 22.Gait dysfunction. 23.FULL CODE. RECOMMENDATIONS AND DISCUSSION: I recommend to continue current medications, management and continue with monitoring, symptomatic treatment. Continue the empiric antibiotics and bronchodilators. I would also recommend a course of empiric steroids also. The prognosis is extremely guarded and multiple consultants have also recommended hospice, but at this time family and the patient want to continue with current treatment and explore the options. Once again, the prognosis is extremely guarded. Further recommendations to follow. See orders for details. MMODL / IJN: [id number] /
--- NOTE | 2020-09-08 18:08 | P.PN ---
Subjective Progress Note Date: 09/08/20 Principal diagnosis: Cervical cancer In f/u today pt states no one is letting her do anything-ie ambulate, eat, use her incentive spirometer. Discussed with pt her concerns, redirected conversation. She then proceeded to have shaking of the right arm and would not respond to questions but did follow commands. Her vitals remained stable. Her diagnosis and treatment plan were again reviewed with her Objective - Vital Signs Vital signs: Vital Signs Temp 98.7 F 09/08/20 11:28 Pulse 128 H 09/08/20 16:04 Resp 20 09/08/20 11:28 BP 103/70 09/08/20 11:28 Pulse Ox 97 09/08/20 11:28 Intake & Output 09/07/20 09/08/20 09/08/20 18:59 06:59 18:59 Intake Total 520 880 840 Output Total 500 500 100 Balance 20 380 740 Weight 94.1 kg Intake: Intake, IV Titration 520 400 Amount Linezolid 600 mg In 300 300 Dextrose/Water 1 300ml. bag @ 150 mls/hr IVPB Q12HR [facility] Rx#:[id number] Meropenem 1 gm In Sodium 100 100 Chloride 0.9% 100 ml @ 33 .3 mls/hr IVPB Q8HR [facility] Rx#:[id number] Sodium Chloride 0.9% 1, 120 000 ml @ 50 mls/hr IV . Q20H [facility] Rx#:[id number] Oral 480 840 Output: Urine 350 400 Stool 150 100 100 Other: Voiding Method Indwelling Catheter Indwelling Catheter Indwelling Catheter - Constitutional General appearance: Present: disheveled, mild distress, obese - EENT EENT Comment(s): red tongue, glossitis Eyes: Present: anicteric sclerae, EOMI, poor dentition - Respiratory Respiratory: right: diminished (RLL,RML), left: CTA - Cardiovascular Details: tachy Heart sounds: normal: S1, S2 - Gastrointestinal Gastrointestinal Comment(s): brown stool in ostomy appliance General gastrointestinal: Present: normal bowel sounds, soft - Integumentary Integumentary Comment(s): sweating Integumentary: Present: pale - Neurologic Neurologic: Present: CNII-XII intact - Musculoskeletal Musculoskeletal: Present: generalized weakness - Psychiatric Psychiatric: Present: A&O x's 3 - Labs CBC & Chem 7: 09/04/20 06:40 09/08/20 04:50 Labs: Abnormal Lab Results - Last 24 Hours (Table) 09/08/20 Range/Units 04:50 Creatinine 1.16 H (0.52-1.04) mg/dL Microbiology - Last 24 Hours (Table) 09/06/20 08:45 Blood Culture - Preliminary Blood No Growth after 48 hours 09/06/20 07:35 Blood Culture - Preliminary Blood No Growth after 48 hours 09/01/20 16:40 Blood Culture - Final Blood No Growth after 144 hours 09/01/20 14:18 Blood Culture - Final Blood No Growth after 144 hours 09/01/20 14:18 Blood Culture - Final Blood No Growth after 144 hours Assessment and Plan (1) Pulmonary emboli Narrative/Plan: Eliquis loading dose BID continues. 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 Current Visit: Yes Status: Acute Priority: High Code(s): N39.0 - URINARY TRACT INFECTION, SITE NOT SPECIFIED SNOMED Code(s): 22394993 Plan: Reinforced with Pt that she cannot have any cancer treatment for several weeks post op so, it is in her best interest to get moving around and take advantage of rehab. She does seem to understand that in her current condition she is not a candidate for treatment. Tx will be held until pt has had the opportunity to rehabilitate, recover from acute illness and once pt has a PS adequate to start cancer treatment Pt encouraged to work with PT/OT, use IS, cough and deep breathe, get up in chair. Pt was told that she has to decide what she wants to do. Medical team is doing what we can but, if she does not try and do the aformentioned activities she will likely not get better and will succumb to cancer or infection. We will cont to follow up and talk with pt
--- NOTE | 2020-09-08 22:52 | PN ---
PROGRESS NOTE DATE OF SERVICE: 09/08/2020 REASON FOR FOLLOWUP: Pneumonia. INTERVAL HISTORY: The patient is afebrile. Still complaining of shortness of breath and chest pain. Did have abdominal pain, decreased oral intake. No vomiting has been reported or diarrhea. PHYSICAL EXAMINATION: Blood pressure 110/75 with a pulse of 118, temperature 97.7. She is 94% on 10 L nasal cannula. General description is a middle-aged female lying in bed in no distress. Respiratory system: Unlabored breathing, decreased breath sounds in the base. No wheeze. Heart S1, S2. Regular rate and rhythm. Abdomen soft, no tenderness. LABS: Blood culture repeat has been negative. Sputum has been negative as well. DIAGNOSTIC IMPRESSION AND PLAN: Patient with shortness of breath with evidence of pulmonary embolism, plus pneumonia. Sputum has been negative. Did have recurrent episodes of fever. Throat cultures remain to be negative. On meropenem and Zyvox. Will be able to slowly wean off antibiotic if the culture remains to be negative and clinical condition improves. Overall prognosis remains to be guarded. MMODL / IJN: [id number] /
[2020-09-09] MEDS: HYDROmorphone 2 MG TAB PO PRN ×7 (00:52→23:04)
[2020-09-09] MEDS: methylPREDNISolone SOD SUCCI 125 MG/2 ML VIAL IV SCH ×3 (03:37→15:46)
[2020-09-09] MEDS: SALT AND SODA MOUTHWASH 1,000 ML PO SCH ×4 (05:19→20:31)
[2020-09-09] MEDS: IPRATROPIUM-ALBUTEROL 3 ML NEB INHALATION SCH ×4 (07:51→19:50)
[2020-09-09 08:06] LABS: Anisocytosis Slight; Basophils % (A) 0 %; Eosinophils % (A) 0 %; HCT 25.9 % (34.0-46.0); HGB 7.5 gm/dL (11.4-16.0); Hypochromasia Marked; Lymphocytes % (A) 7 %; MCHC 29.1 g/dL (31.0-37.0); MCV 78.8 fL (80.0-100.0); Microcytosis Slight; Monocytes # (A) 0.2 k/uL (0-1.0); Monocytes % (A) 2 %; Neutrophils # (A) 13.3 k/uL (1.3-7.7); Neutrophils % (A) 91 %; Platelet Count 140 k/uL (150-450); RBC 3.28 m/uL (3.80-5.40); WBC 14.7 k/uL (3.8-10.6)
[2020-09-09] MEDS: METOPROLOL TARTRATE 12.5 MG TAB PO SCH (08:15)
[2020-09-09] MEDS: LINEZOLID 600 MG in DEXTROSE/WATER 1 300ML.BAG IVPB SCH ×2 (08:16→21:23)
[2020-09-09] MEDS: NYSTATIN 100,000 UNIT/ML SUSP 500,000 UNIT/5 ML CUP PO SCH ×4 (08:16→19:11)
[2020-09-09] MEDS: PANTOPRAZOLE 40 MG TABLET PO SCH ×2 (08:16→21:23)
[2020-09-09] MEDS: TRIMETHOBENZAMIDE 100 MG/ML 2 ML VIAL IM PRN (08:16)
[2020-09-09] MEDS: MEROPENEM 1 GM in SODIUM CHLORIDE 0.9% 100 ML IVPB SCH ×2 (08:17→17:09)
[2020-09-09 10:12] LABS: Anion Gap 16.5 mmol/L (4.00-12.00); BUN/Creat Ratio 31.88 Ratio (12.00-20.00); Carbon Dioxide 19.5 mmol/L (21.6-31.8); Non-African American GFR(CKD) 38.8 (60.0-200.0); Potassium 4.7 mmol/L (3.5-5.5)
[2020-09-09] MEDS: SODIUM CHLORIDE 0.9% 1,000 ML IV SCH ×2 (10:42→21:25)
--- NOTE | 2020-09-09 13:12 | P.PN ---
Subjective Progress Note Date: 09/09/20 Principal diagnosis: Bowel obstruction 2/2 Cervical cancer In f/u pt reports SOB, her O2 needs are increasing. I reviewed with her that it is documented that she ambulated last night. She states that she felt really dizzy and weak. Told her that could be expected as she has not been out of bed in a while and it is going to take effort to feel better. We talked about moving forward with some treatment (start radiation to help with pain) but, she verbalized concern. We discussed possibility of use of effexor (for suspected hot flashes, mood) but she refused stating that she wants to treat her symptoms "naturally" and suggested that she be prescribed estrogen, not a good idea considering she possibly has PE. 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 I tried to be encouraging and supportive while also letting pt know that she has to show some signs of wanting to genuinely participate in meaningful recovery. When the discussions get tough and I put responsibility on to pt she becomes lethargic, closes her eyes, respirations increase and she no longer tries to participate in conversation. Objective - Vital Signs Vital signs: Vital Signs Temp 97.3 F L 09/09/20 04:20 Pulse 118 H 09/09/20 11:56 Resp 20 09/09/20 11:56 BP 109/69 09/09/20 04:20 Pulse Ox 97 09/09/20 07:51 Intake & Output 09/08/20 09/09/20 09/09/20 18:59 06:59 18:59 Intake Total 3280 1360 Output Total 700 250 Balance 2580 1110 Intake: Intake, IV Titration 1000 520 Amount Linezolid 600 mg In 300 300 Dextrose/Water 1 300ml. bag @ 150 mls/hr IVPB Q12HR [facility] Rx#:[id number] Meropenem 1 gm In Sodium 100 100 Chloride 0.9% 100 ml @ 33 .3 mls/hr IVPB Q8HR [facility] Rx#:[id number] Sodium Chloride 0.9% 1, 600 120 000 ml @ 50 mls/hr IV . Q20H [facility] Rx#:[id number] Oral 2280 840 Output: Urine 600 Stool 100 250 Other: Voiding Method Indwelling Catheter Indwelling Catheter - Constitutional General appearance: Present: disheveled, mild distress, obese - EENT Eyes: Present: anicteric sclerae, EOMI ENT: Present: hearing grossly normal - Respiratory Respiratory: bilateral: CTA (diminished RLL, fine crackles ) - Cardiovascular Details: Regular rhythm, tachycardia Heart sounds: normal: S1, S2 Abnormal Heart Sounds: Absent: systolic murmur, diastolic murmur, rub, S3 Gallop, S4 Gallop, click, other - Peripheral edema foot Peripheral Edema: bilateral: Trace - Gastrointestinal General gastrointestinal: Present: normal bowel sounds, soft, tenderness (near incision) - Integumentary Integumentary Comment(s): pale but flushed cheeks, still sweating - Neurologic Neurologic: Present: CNII-XII intact - Psychiatric Psychiatric: Present: A&O x's 3. Absent: appropriate affect - Labs CBC & Chem 7: 09/09/20 06:25 09/09/20 06:25 Labs: Abnormal Lab Results - Last 24 Hours (Table) 09/09/20 09/09/20 Range/Units 06:25 06:25 WBC 14.7 H (3.8-10.6) k/uL RBC 3.28 L (3.80-5.40) m/uL Hgb 7.5 L (11.4-16.0) gm/dL Hct 25.9 L (34.0-46.0) % MCV 78.8 L (80.0-100.0) fL MCH 23.0 L (25.0-35.0) pg MCHC 29.1 L (31.0-37.0) g/dL RDW 18.0 H (11.5-15.5) % Plt Count 140 L (150-450) k/uL Neutrophils # 13.3 H (1.3-7.7) k/uL Carbon Dioxide 19.5 L (21.6-31.8) mmol/L Anion Gap 16.50 H (4.00-12.00) mmol/L BUN 51.0 H (9.0-27.0) mg/dL Creatinine 1.6 H (0.6-1.5) mg/dL Est GFR (CKD-EPI)AfAm 45.0 L (60.0-200.0) Est GFR (CKD-EPI)NonAf 38.8 L (60.0-200.0) BUN/Creatinine Ratio 31.88 H (12.00-20.00) Ratio Glucose 174 H (70-110) mg/dL Microbiology - Last 24 Hours (Table) 09/06/20 08:45 Blood Culture - Preliminary Blood No Growth after 72 hours 09/06/20 07:35 Blood Culture - Preliminary Blood No Growth after 72 hours Assessment and Plan (1) Pulmonary emboli Narrative/Plan: Eliquis. 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 Rectal mets (or cervical mass growing into rectal area?). Ureteral obstruction from malignancy, has had stents, Urology planning to exchange later this month Pt has not started any systemic cancer treatment yet. Now, pt has had diverting ostomy surgery-no chemo for about 4 weeks. Rad Onc has seen, no radiation for at least 2 weeks post op Current Visit: Yes Status: Acute Priority: High Code(s): C79.9 - SECONDARY MALIGNANT NEOPLASM OF UNSPECIFIED SITE; C53.9 - MALIGNANT NEOPLASM OF CERVIX UTERI, UNSPECIFIED SNOMED Code(s): 612053083 (4) UTI (urinary tract infection) Narrative/Plan: ID following closely-aggressive abx mgmt. Current Visit: Yes Status: Acute Priority: High Code(s): N39.0 - URINARY TRACT INFECTION, SITE NOT SPECIFIED SNOMED Code(s): 59361160 Plan: I discussed case with IM, Rad Onc, have asked Nursing to get a hold of Pulmonary and Nephrology. Beta brandon was adjusted by IM and thyroid studies ordered for sustained t achycardia. Covid repeat testing ordered and Pulm being asked to come back and see pt due to increasing O2 needs and worsening CT chest. Nephrology reassess worsening renal function. IM consulting inpt Rehab for evaluation Rad Onc going to see pt to talk about radiation for pain control but, with current resp status, pt will not be able to tolerate positioning for treatment. Goal is to ensure pt is medically stable and that there is not a treatable medical condition that would prevent pt from participation in rehabilitation. Once we have medically optimized pt and ensured that there is no untreated medical condition preventing her from proceeding forward then family meeting needs to be had ( and parents) so that plan of care can be developed as it is time to move forward with how pt and family want to approach cancer. Chemo will have to be held until pt has had the opportunity to rehabilitate to a PS adequate to start cancer treatment. If pt is unable to do so then, recommendation is for palliative care with transition to hospice as pt conditions declines. Time with Patient: Greater than 30
--- NOTE | 2020-09-09 13:42 | XR ---
EXAMINATION TYPE: XR chest 1V portable DATE OF EXAM: 09/09/2020 COMPARISON: NONE HISTORY: Shortness of breath TECHNIQUE: Single frontal view of the chest is obtained. FINDINGS: The port catheter seen with bilateral patchy infiltrate stable. Tiny pleural effusions. No pneumothorax. Heart size stable. IMPRESSION: Stable bilateral patchy infiltrates.
[2020-09-09] MEDS ORDERED: FUROSEMIDE 10 MG/ML 4 ML VIAL IV STA ×2 (14:05→16:15)
[2020-09-09] MEDS: APIXABAN 5 MG TAB PO SCH ×2 (14:37→21:23)
--- NOTE | 2020-09-09 15:21 | PN ---
PROGRESS NOTE DATE OF SERVICE: 09/09/2020 This 45-year-old woman admitted with cervical cancer, having multiple medical problems including hypoxia was empirically started on IV Solu-Medrol which the patient is tolerating well. The most recent chest x-ray which was reviewed personally by me showed bilateral infiltrate in the lower lobes. The patient is on broad spectrum IV antibiotics. Cultures are negative at this time. Patch infiltrate seems to be stable. Covid 19 was negative on multiple occasions. PHYSICAL EXAMINATION: Alert and oriented x2. Pulse is 118. Blood pressure 108/73. Respiratory rate 21. Temperature 97.3. Pulse ox 94% on 6 L. HEENT: Conjunctivae normal. NECK: No JVD. CARDIOVASCULAR: S1, S2. RESPIRATORY: Breath sounds diminished in the bases. A few scattered rhonchi and crackles. ABDOMEN: Soft. Nontender. NERVOUS SYSTEM: No focal deficits. LAB STUDIES: WBC 14.1, hemoglobin 11.5. Other labs: Creatinine is 1.6. ASSESSMENT: 1. Abdominal pain with locally advanced cervical cancer, status post abdominal surgery with diverting colostomy, awaiting definitive treatment. 2. Acute hypoxic respiratory failure, multifactorial. 3. Possible bilateral pneumonia and atelectasis. 4. Acute pulmonary embolism on direct anticoagulants. 5. 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 6. Tachycardia possibly sinus multifactorial. 7. Pulmonary hypertension on the 2D echo. 8. Diphtheroids species in the blood culture initially but most recent cultures are negative. 9. Acute urinary tract infection with possible sepsis present on admission. 10.Acute respiratory acidosis. 11.Elevated D-dimer. 12.Urinary obstruction with left hydronephrosis. 13.History of recent MediPort placement. 14.Acute renal injury. 15.Acute blood loss anemia. 16.Shortness of breath, multifactorial with chronic obstructive pulmonary disease acute exacerbation as well as pneumonia. 17.Pain management. 18.Anemia, multifactorial. 19.Elevated alkaline phosphatase. 20.Acute pain syndrome, possibly secondary to malignancy. 21.Bone scan showing possible metastasis of the pelvic bone. 22.Gait dysfunction. 23.FULL CODE. RECOMMENDATIONS AND DISCUSSION: This 45-year-old woman who presented with multiple complex medical issues, at this time, I would recommend continue the current medications, symptomatic treatment, otherwise antibiotics. Continue the bronchodilators. Guarded prognosis because of multiple complex medical issues. Further recommendations to follow. MMODL / IJN: [id number] /
[2020-09-09] MEDS ORDERED: SODIUM CHLORIDE 0.9% 1,000 ML IV ONE (15:47)
--- NOTE | 2020-09-09 15:54 | P.PN ---
Subjective Progress Note Date: 09/09/20 Principal diagnosis: Acute hypoxic respiratory failure This is a 45-year-old white female with known history of locally advanced cervical cancer, who underwent diverging colostomy for a rectal mass with secondary bowel obstruction and abdominal pain on 08/24/2020. Patient was in intensive care unit in the postoperative period. Her chest x-ray in the postoperative period showed some basilar atelectasis. Patient was extubated in the recovery room shortly after her surgery. Patient was also being treated for acute urinary tract infection with a combination of cefepime and Flagyl, the postoperative period patient was having a lot of pain issues requiring increased doses of narcotics and Dilaudid [employer]. CTA chest was obtained on 08/20/2020 showing tiny filling defects within the right upper lobe pulmonary arterial branches and left lower lobe pulmonary arterial branches, possibly related to tiny pulmonary emboli. Lower extremity Dopplers were negative for DVT. Patient was started on heparin infusion. From pulmonary perspective she had been stable, and pulmonary/critical care service had signed off on 08/29/2020. Today on 09/01/2020 we got called back to the bedside for a concern of worsening dyspnea, hypoxia, and altered mental status. Rapid response team was called to the bedside. During our evaluation patient is very lethargic, and she is on 50% Ventimask with a pulse ox of 97-99%, she is barely arousable to painful stimuli, stat chest x-ray was obtained showing bilateral lower lobe infiltrates and small pleural effusion. The nursing staff reports that during the night patient was continuously yelling out and being very agitated, and in addition to her pain medications which included oral Dilaudid 2 mg every 3 hours as needed, IV Dilaudid 1 mg every 6 hours as needed, Flexeril, fentanyl patch 25 mics daily, she had also been given additional doses of Ativan 1 mg at 2:00 in the morning. Since then she was noted to be more lethargic, and more hypoxic requiring increased amount of oxygen. Respiratory depression related to narcotics and benzodiazepines was suspected and the patient was given 3 doses of Narcan 0.5 mg each, she woke up and started becoming more responsive. At that time blood gas was obtained showing pH of 7.53, pCO2 of 31, and pO2 of 136. Initially we were going to put the patient on BiPAP support however as she woke up after the Narcan we decided to hold on that. She did have a elevated temperature last night of 100F, patient had a septic workup done with blood cultures, urinalysis and urine culture, and all the cultures are negative thus far. Since current antibiotic coverage includes meropenem, Flagyl, and vancomycin. Staff reports small amount of vaginal bleeding, patient remains on heparin infusion for possibility of small PEs for the last several days, her last APTT this morning was therapeutic at 61.5, this morning's hemoglobin is 7.9. At this time we can switch patient's heparin infusion to oral Eliquis and continue monitoring for any further bleeding and continue monitoring hemoglobin. On 09/02/2020 patient seen in follow-up on medical oncology floor, she is much more responsive today, still a bit somnolent, but easily wakes up to verbal stimulation, denies any worsening dyspnea, no cough, she remains on 6 L of oxygen, her pulse ox is 94%, and this can be further wean to maintain O2 saturations at or above 90%. She is complaining of some abdominal discomfort. Her colostomy is producing stool. Abdomen is positive for postsurgical tenderness, but it is soft. Patient has been afebrile in the last 24 hours. Her cultures including blood and urine are negative. She continues on breathing treatments, she remains on oral Dilaudid to 2 mg every 3 hours, yesterday we switched her IV heparin to oral Eliquis for possibility of pulmonary emboli. In addition she is on antibiotics in the form of Diflucan, vancomycin and meropenem. No cough. No hemoptysis. No increased vaginal bleeding reports from nursing, today's blood work has been reviewed, her hemoglobin is 7.7, white blood cell count is improving and is down to 13.6 on today's labs. On 09/09/2020 patient seen in follow-up on medical oncology floor. Today we were asked to see the patient again for findings of patchy pulmonary infiltrates that appeared to slightly worse on most recent CT chest abdomen and pelvis without contrast from 09/06/2020. Patient is currently on 6 L of oxygen which is actually less compared to last week when we saw the patient. Yesterday patient was on 10 L of oxygen per high flow nasal cannula. Patient is awake and alert, oriented 3, she is much more awake compared to last week when we saw the patient in reconsultation regarding altered mental status, difficulty breathing, and patient was quite obtunded related to sedatives and narcotics. Since then her pain medications have been readjusted. And currently patient is just on oral Dillaudid 2 mg every 3 hours on an as-needed basis. She is also on antibiotics in the form of meropenem and Zyvox. She had previously been on vancomycin, she has had multiple blood cultures, urine cultures and sputum which were all negative, there was a single blood culture back from 08/14/2020 that showed a diphtheroid species which is thought to be a contamination. Today's labs have been reviewed. Patient's creatinine significantly worsened since yesterday, and she has had very little urine output in the last 12 hours. Nephrology is following. Patient also has Dr. Kelly from urology following in regards to bilateral hydronephrosis and she had bilateral ureteral stents placed and most recent CT of the abdomen and pelvis from 09/06/2020 showing bilateral hydronephrosis, bilateral ureteral stents, stents appeared to be in good position. The urine is blood tinged, dark, urology's impression was that the proximal curl of the right ureteral stent had migrated distally and there was a possibility of undergoing a lateral ureteral stent change later on this month. From pulmonary perspective patient appears to be in no distress, although she is short of breath at rest and with any exertion, incentive spirometer effort has been poor, and she is only tracie 500 mL on the today. No wheezing noted, no rhonchi, no phlegm production, there is only minimal crackles at the right base, good air entry noted bilaterally. Her appetite has been quite poor, her oral intake has been quite poor, she is on oral supplements for nutrition. Her colostomy is producing soft stool. She has had no nausea or vomiting, no diarrhea. Objective - Vital Signs Vital signs: Vital Signs Temp 97.3 F L 09/09/20 12:19 Pulse 118 H 09/09/20 15:25 Resp 24 09/09/20 15:25 BP 108/76 09/09/20 12:19 Pulse Ox 91 L 09/09/20 12:19 Intake & Output 09/08/20 09/09/20 09/09/20 18:59 06:59 18:59 Intake Total 3280 1360 Output Total 700 250 Balance 2580 1110 Intake: Intake, IV Titration 1000 520 Amount Linezolid 600 mg In 300 300 Dextrose/Water 1 300ml. bag @ 150 mls/hr IVPB Q12HR [facility] Rx#:[id number] Meropenem 1 gm In Sodium 100 100 Chloride 0.9% 100 ml @ 33 .3 mls/hr IVPB Q8HR [facility] Rx#:[id number] Sodium Chloride 0.9% 1, 600 120 000 ml @ 50 mls/hr IV . Q20H [facility] Rx#:[id number] Oral 2280 840 Output: Urine 600 Stool 100 250 Other: Voiding Method Indwelling Catheter Indwelling Catheter - Exam GENERAL EXAM: Awake and alert, pleasant, slightly irritable, 45-year-old white female mildly short of breath at rest but no acute distress on 6 L of oxygen with pulse ox of 91% HEAD: Normocephalic/atraumatic. EYES: Normal reaction of pupils, equal size. Conjunctiva pink, sclera white. NOSE: Clear with pink turbinates. THROAT: No erythema or exudates. NECK: No masses, no JVD, no thyroid enlargement, no adenopathy. CHEST: No chest wall deformity. Symmetrical expansion. LUNGS: Equal air entry with diminished breath sounds at the bases CVS: Regular rate and rhythm, normal S1 and S2, no gallops, no murmurs, no rubs ABDOMEN: Soft, nontender. No hepatosplenomegaly, normal bowel sounds, no guarding or rigidity. EXTREMITIES: No clubbing, no edema, no cyanosis, 2+ pulses and upper and lower extremities. MUSCULOSKELETAL: Muscle strength and tone normal. SPINE: No scoliosis or deformity SKIN: No rashes CENTRAL NERVOUS SYSTEM: Somnolent, but easily opens eyes to verbal stimulation, responds verbally, appropriately, oriented 3 No focal deficits, tone is normal in all 4 extremities. - Labs CBC & Chem 7: 09/09/20 06:25 09/09/20 06:25 Labs: Abnormal Lab Results - Last 24 Hours (Table) 09/09/20 09/09/20 Range/Units 06:25 06:25 WBC 14.7 H (3.8-10.6) k/uL RBC 3.28 L (3.80-5.40) m/uL Hgb 7.5 L (11.4-16.0) gm/dL Hct 25.9 L (34.0-46.0) % MCV 78.8 L (80.0-100.0) fL MCH 23.0 L (25.0-35.0) pg MCHC 29.1 L (31.0-37.0) g/dL RDW 18.0 H (11.5-15.5) % Plt Count 140 L (150-450) k/uL Neutrophils # 13.3 H (1.3-7.7) k/uL Carbon Dioxide 19.5 L (21.6-31.8) mmol/L Anion Gap 16.50 H (4.00-12.00) mmol/L BUN 51.0 H (9.0-27.0) mg/dL Creatinine 1.6 H (0.6-1.5) mg/dL Est GFR (CKD-EPI)AfAm 45.0 L (60.0-200.0) Est GFR (CKD-EPI)NonAf 38.8 L (60.0-200.0) BUN/Creatinine Ratio 31.88 H (12.00-20.00) Ratio Glucose 174 H (70-110) mg/dL Microbiology - Last 24 Hours (Table) 09/06/20 08:45 Blood Culture - Preliminary Blood No Growth after 72 hours 09/06/20 07:35 Blood Culture - Preliminary Blood No Growth after 72 hours Assessment and Plan Plan: Assessment: #1. Acute hypoxic respiratory failure related to possibility of pneumonia, CT chest showed patchy bilateral pulmonary infiltrates. Possibility of mild fluid overload is not excluded, proBNP level has been requested #2. Lactic acidosis related to possibility of sepsis #3. Acute kidney injury, possibly related to nephrotoxic agents, and ATN, patient also has bilateral hydronephrosis with history of bilateral stent placement, nephrology and urology are following #4. Recent history of diverting colostomy surgery on 08/24/2020 a rectal mass related to patient's recent diagnosis of locally advanced cervical cancer #5. Small amount of vaginal bleeding, possibly related to underlying history of cancer, and heparin infusion, will monitor hemoglobin, and switch heparin infusion to oral Eliquis #6. Elevated d-dimer, and CTA chest showed tiny pulmonary emboli in the right upper lobe and left lower lobe, patient had been on heparin infusion since 08/20/2020, with switched over to Eliquis. Lower extremity Dopplers were negative for DVT #7. Acute on chronic pain #8. History of COPD/asthma, unspecified #9. History of urinary tract infection on admission #10. History of urinary obstruction with hydronephrosis and possible stent malfunction present on admission #11. Recent history of MediPort placement for treatment for cervical cancer Plan: Follow-up chest x-ray reviewed, CT chest/abdomen and pelvis reviewed Elevated proBNP suggests fluid overload, however patient also has elevated lactic acid, worsening renal function We'll give the patient 1 L IV bolus of 0.9 normal saline Maintenance IV fluids with 0.9 normal saline at 50 ML per hour Nephrology and urology are following Will await the recommendations Encourage deep breathing and coughing Follow-up chest x-ray tomorrow procalcitonin level Follow-up labs including CBC and BMP Overall prognosis is quite guarded I performed a history & physical examination of the patient and discussed their management with my nurse practitioner, Merna Ferguson. I reviewed the nurse practitioner's note and agree with the documented findings and plan of care. Lung sounds are positive for diminished breath sounds. The findings and the impression was discussed with the patient. I attest to the documentation by the nurse practitioner. Time with Patient: Less than 30
--- NOTE | 2020-09-09 18:42 | PN ---
PROGRESS NOTE DATE OF SERVICE: 09/09/2020 REASON FOR FOLLOWUP: Pneumonia. INTERVAL HISTORY: The patient is currently afebrile. Patient is breathing slightly comfortably. Patient denies having any chest pain. Did have a cough. Not bringing up any sputum. Did have some abdominal pain but no vomiting or diarrhea reported. PHYSICAL EXAMINATION: Blood pressure is 108/76, pulse of 120. Temperature is 97.3. She is 91% on 6 L nasal cannula. General description is a middle-aged male lying in bed in no distress. Respiratory system: Unlabored breathing, decreased breath sounds in the bases. No wheeze. HEART: S1, S2. Regular rate and rhythm. Abdomen soft. No guarding. No rigidity. LABS: Hemoglobin is 7.7, white count 14.7, BUN 51, creatinine is 1.6. DIAGNOSTIC IMPRESSION AND PLAN: Patient with metastatic cervical cancer with bilateral hydronephrosis. This patient also has an obstructing rectal tumor status post diverting colostomy with concern for possible pneumonia and evidence of pulmonary embolism. She os currently covered with Meropenem and Zyvox. However, culture has been negative and the patient's condition improved. We will slowly deescalate her antibiotic therapy and continue supportive care. MMODL / IJN: [id number] /
[2020-09-09] MEDS: METOPROLOL TARTRATE 25 MG TAB PO SCH (21:23)
[2020-09-10] MEDS: MEROPENEM 1 GM in SODIUM CHLORIDE 0.9% 100 ML IVPB SCH ×3 (00:14→18:28)
[2020-09-10] MEDS: SALT AND SODA MOUTHWASH 1,000 ML PO SCH ×4 (01:01→16:51)
[2020-09-10] MEDS: HYDROmorphone 2 MG TAB PO PRN ×4 (02:27→15:21)
--- NOTE | 2020-09-10 06:07 | P.CONS ---
History of Present Illness - Chief Complaint Medical debility - History of Present Illness I had the opportunity to see patient for inpatient rehab consultation with regard to medical debility. Patient admitted to [facility] August 14 abdominal pain. Seen by Dr. bermudez who diagnosed proctitis. Seen by Dr. Nunez who is known to Dr. Lee for history cervical cancer and urethral obstruction. Seen by oncology, Dr. Alfredo for the obstructive mass. Seen by Dr. Cummings who did perform diverting colostomy. Seen by Dr. Mares for ICU care. Laboratories cardiac echo done. Chest CTA done. Venogram negative for right or left leg DVT. Bone scan with some minimal uptake left pubis and left hydronephrosis. Abdominal CT demonstrates pericardial density and bilateral hydronephrosis. Chest x-ray with bilateral patchy infiltrate. His started therapies. PT reports minimal assistance bed mobility, transfers, gait 10 feet with roller walker. OT reports minimal assistance for upper dressing and maximal assistance for lower dressing and bathing and two-person total assistance for toileting and two-person moderate assistance for functional mobility and transfers. Previous functional history as elicited from patient: 45-year-old right-handed white female who is lives and second-floor apartment with and young son. has been doing cooking and laundry since patient's have this abdominal problem. Neither drive or work. PCP Dr. Bro. Review of Systems Review of systems: ENT: Denies sneezes or discharge. Eyes: Denies discharge or photophobia. Cardiac: Denies chest pain or palpitation. Pulmonary: Moderate shortness of breath. Breast: Denies discharge or lumps. Gastrointestinal: Denies nausea, emesis, constipation, diarrhea. Genitourinary: Still with some abdominal discomfort. Musculoskeletal: Denies muscle or bone aches. Neurologic: Generalized weakness and reports inability to stand on own. Endocrine: Denies shakes or sweats. Oncology: Denies cancers. Dermatologic: Denies rash, itching, pruritus. ALLERGY/immunology: Denies sneezes, rashes. Past Medical History Past Medical History: Asthma, COPD, CVA/TIA, GERD/Reflux, Seizure Disorder, Skin Disorder Additional Past Medical History / Comment(s): TIA, brain bleed 2008. Hx seizure poss R/T Rx, 2012. 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 Fell 02/2020 w/ dislocation hip, bruised tailbone. Ezcema, psoriasis, rosacea. Recent constipation, c/o pain mid back/flank area. Varicose veins,kidney stents 06/29/20 History of Any Multi-Drug Resistant Organisms: MRSA Year Discovered:: 2010 MDRO Source:: uterus Past Surgical History: Appendectomy, Section Additional Past Surgical History / Comment(s): 2 D&C, 2008 Past Anesthesia/Blood Transfusion Reactions: Previous Problems w/ Anesthesia, Motion Sickness Additional Past Anesthesia/Blood Transfusion Reaction / Comm: Reaction 2004 w/ D&C heart rate ecelerated, blood pressure bottomed out, uncontrolled; with C-S spinal block paralyzed lung, stopped breathing. Novocain caused leg tremors w/ dental work. Requesting Ativan in pre-op D/T anxiousness. Past Psychological History: ADD/ADHD, Anxiety, PTSD Additional Psychological History / Comment(s): states that PTSD was treated Smoking Status: Never smoker Past Alcohol Use History: None Reported Additional Past Alcohol Use History / Comment(s): smoked 2 cartons of cigarettes in 1 day 2000 Past Drug Use History: None Reported - Past Family History Father Family Medical History: Cancer, Deep Vein Thrombosis (DVT) Additional Family Medical History / Comment(s): thyroid goiter, poss cancer Medications and Allergies Home Medications Medication Instructions Recorded Confirmed Type Morphine Sulfate ER [Ms Contin] 15 mg PO Q12HR PRN 08/06/20 08/14/20 History Sennosides [Senna] 8.6 mg PO BID PRN 08/06/20 08/14/20 History Lactulose 20 gm PO BID PRN #900 ml 08/09/20 08/14/20 Rx bisacodyL [Dulcolax] 10 mg RECTAL DAILY PRN #12 supp 08/09/20 08/14/20 Rx Sulfamethox-Tmp 800-160Mg [Bactrim 1 tab PO Q12HR #20 tab 08/13/20 08/14/20 Rx DS 800-160 mg] HYDROcodone/APAP 10-325MG [[place] 1 tab PO Q4HR PRN 08/14/20 08/14/20 History 10-325] Lidocaine 5% Oint [Xylocaine 5% 1 applic TOPICAL DAILY PRN 08/14/20 08/14/20 History Oint] Allergies Allergy/AdvReac Type Severity Reaction Status Date / Time shellfish derived [Shellfish] Allergy Mild Swelling, Verified 08/14/20 19:18 nausea ciprofloxacin [From Cipro] Allergy Anaphylaxis Verified 08/14/20 19:18 coconut Allergy Anaphylaxis Verified 08/14/20 19:18 Fish Containing Products Allergy Anaphylaxis Verified 08/14/20 19:18 [Fish] fluticasone Allergy Anaphylaxis Verified 08/14/20 19:18 [From Flovent Diskus] honey Allergy Swelling Verified 08/14/20 19:18 Iodinated Contrast Media Allergy Swelling Verified 08/14/20 19:18 [Iodinated Contrast Media - IV Dye] iodine Allergy Swelling Verified 08/14/20 19:18 lamotrigine [From Lamictal] Allergy Anaphylaxis, Verified 08/14/20 19:18 seizures, hives latex Allergy Rash/Hives, Verified 08/14/20 19:18 dyspnea medroxyprogesterone Allergy Unknown Verified 08/14/20 19:18 [From Depo-Provera] naproxen Allergy Rash/Hives Verified 08/14/20 19:18 nitrofurantoin Allergy Rash/Hives Verified 08/14/20 19:18 [From Macrobid] oxcarbazepine Allergy Unknown Verified 08/14/20 19:18 [From Trileptal] oxycodone [From Percocet] Allergy Anaphylaxis Verified 08/14/20 19:18 Penicillins Allergy Anaphylaxis Verified 08/14/20 19:18 Quinolones Allergy Dyspnea Verified 08/14/20 19:18 talc Allergy Dyspnea Verified 08/14/20 19:18 topiramate [From Topamax] Allergy Rash/Hives, Verified 08/14/20 19:18 seizures venom-honey bee Allergy Anaphylaxis Verified 08/14/20 19:18 [bee venom (honey bee)] venom-wasp [wasp venom] Allergy Anaphylaxis Verified 08/14/20 19:18 codeine AdvReac Vomiting Verified 08/14/20 19:18 diphenhydramine AdvReac Unknown Verified 08/14/20 19:18 [From Benadryl] divalproex sodium AdvReac Unknown Verified 08/14/20 19:18 [From Depakote] erythromycin base AdvReac Unknown Verified 08/14/20 19:18 paroxetine [From Paxil] AdvReac suicidal Verified 08/14/20 19:18 procaine [From Novocain] AdvReac Unknown Verified 08/14/20 19:18 Physical Exam Vitals: Vital Signs Temp Pulse Pulse Resp BP Pulse Ox 09/10/20 02:06 106 H 09/10/20 01:54 108 H 09/10/20 00:10 110 H 95 09/09/20 20:01 116 H 09/09/20 19:50 120 H 94 L 09/09/20 19:40 97.4 F L 118 H 22 111/77 94 L 09/09/20 15:25 118 H 24 09/09/20 15:11 120 H 22 09/09/20 12:19 97.3 F L 115 H 21 108/76 91 L 09/09/20 11:56 118 H 20 09/09/20 11:47 116 H 20 09/09/20 08:04 110 H 16 09/09/20 08:00 115 H 24 09/09/20 07:51 109 H 16 97 Intake and Output 09/09/20 09/09/20 09/10/20 14:59 22:59 06:59 Intake Total 840 2610 1125 Output Total 150 100 30 Balance 690 2510 1095 Intake: Intake, IV Titration 1600 1125 Amount Linezolid 600 mg In 300 Dextrose/Water 1 300ml. bag @ 150 mls/hr IVPB Q12HR [facility] Rx#:[id number] Meropenem 1 gm In Sodium 200 100 Chloride 0.9% 100 ml @ 33 .3 mls/hr IVPB Q8HR [facility] Rx#:[id number] Sodium Chloride 0.9% 1, 1400 725 000 ml @ 75 mls/hr IV . [id number] [facility] Rx#:[id number] Oral 840 1010 Output: Urine 100 30 Stool 150 Other: Voiding Method Indwelling Catheter Indwelling Catheter Skin: Good color, texture, turgor. General: Medium build and comfortable appearance. Head: Normocephalic, atraumatic. Eyes: Symmetric. Pupils equal round. Ears: Symmetric. Hearing within normal limits. Mouth: Clear. Neck: Supple. Carotid without bruit. Cardiac: Regular rate and rhythm. Lungs: Clear anteriorly and posteriorly. Abdomen: Soft active nontender, overweight. Extremities: Normal tone. Neurological: Mental status: Alert, cooperative, pleasant. Cranial nerves: Symmetric facial tone and trapezius. Motor: Can actively elevate all 4 limbs off of bed but legs are at best antigravity. Sensation: Intact throughout. DTRs: Symmetric and equal throughout. Mobility: Did not attempt to sit or stand this early a.m. Results CBC & Chem 7: 09/09/20 06:25 09/09/20 06:25 Labs: Abnormal Lab Results - Last 24 Hours (Table) 09/09/20 09/09/20 09/09/20 Range/Units 06:25 06:25 06:30 WBC 14.7 H (3.8-10.6) k/uL RBC 3.28 L (3.80-5.40) m/uL Hgb 7.5 L (11.4-16.0) gm/dL Hct 25.9 L (34.0-46.0) % MCV 78.8 L (80.0-100.0) fL MCH 23.0 L (25.0-35.0) pg MCHC 29.1 L (31.0-37.0) g/dL RDW 18.0 H (11.5-15.5) % Plt Count 140 L (150-450) k/uL Neutrophils # 13.3 H (1.3-7.7) k/uL Carbon Dioxide 19.5 L (21.6-31.8) mmol/L Anion Gap 16.50 H (4.00-12.00) mmol/L BUN 51.0 H (9.0-27.0) mg/dL Creatinine 1.6 H (0.6-1.5) mg/dL Est GFR (CKD-EPI)AfAm 45.0 L (60.0-200.0) Est GFR (CKD-EPI)NonAf 38.8 L (60.0-200.0) BUN/Creatinine Ratio 31.88 H (12.00-20.00) Ratio Glucose 174 H (70-110) mg/dL Plasma Lactic Acid Cesar (0.7-2.0) mmol/L Procalcitonin 1.87 H (0.02-0.09) ng/mL 09/09/20 09/09/20 Range/Units 15:09 18:10 WBC (3.8-10.6) k/uL RBC (3.80-5.40) m/uL Hgb (11.4-16.0) gm/dL Hct (34.0-46.0) % MCV (80.0-100.0) fL MCH (25.0-35.0) pg MCHC (31.0-37.0) g/dL RDW (11.5-15.5) % Plt Count (150-450) k/uL Neutrophils # (1.3-7.7) k/uL Carbon Dioxide (21.6-31.8) mmol/L Anion Gap (4.00-12.00) mmol/L BUN (9.0-27.0) mg/dL Creatinine (0.6-1.5) mg/dL Est GFR (CKD-EPI)AfAm (60.0-200.0) Est GFR (CKD-EPI)NonAf (60.0-200.0) BUN/Creatinine Ratio (12.00-20.00) Ratio Glucose (70-110) mg/dL Plasma Lactic Acid Cesar 5.7 H* 4.6 H* (0.7-2.0) mmol/L Procalcitonin (0.02-0.09) ng/mL Microbiology - Last 24 Hours (Table) 09/06/20 08:45 Blood Culture - Preliminary Blood No Growth after 72 hours 09/06/20 07:35 Blood Culture - Preliminary Blood No Growth after 72 hours Assessment and Plan (1) Abdominal pain Current Visit: Yes Status: Acute Code(s): R10.9 - UNSPECIFIED ABDOMINAL PAIN SNOMED Code(s): 16033300 (2) Metastasis from cervical cancer Current Visit: Yes Status: Acute Priority: High Code(s): C79.9 - SECONDARY MALIGNANT NEOPLASM OF UNSPECIFIED SITE; C53.9 - MALIGNANT NEOPLASM OF CERVIX UTERI, UNSPECIFIED SNOMED Code(s): 368527191 Plan: Impression: 1. Medical debility. 2. Abdominal pain with proctitis. 3. Cervical cancer with metastasis. 4. Urethral obstruction. 5. COPD/asthma. 6. Seizure disorder. 7. GERD. 8. History of stroke. comments and plan: At this time PT and OT are ongoing. Patient with some endurance issues but does appear to be participating with therapy. Have discussed possible inpatient rehab with patient. She has already been made aware and Y[facility] lives and will consider her options.
[2020-09-10 06:36] LABS: Anisocytosis Slight; Basophils % (A) 0 %; Eosinophils % (A) 0 %; HCT 26.6 % (34.0-46.0); HGB 7.6 gm/dL (11.4-16.0); Hypochromasia Marked; Lymphocytes # (A) 1.1 k/uL (1.0-4.8); Lymphocytes % (A) 6 %; MCH 22.4 pg (25.0-35.0); MCHC 28.4 g/dL (31.0-37.0); MCV 78.9 fL (80.0-100.0); Mean Platelet Volume 11.8; Microcytosis Slight; Monocytes # (A) 0.3 k/uL (0-1.0); Monocytes % (A) 2 %; Neutrophils # (A) 17.1 k/uL (1.3-7.7); Neutrophils % (A) 91 %; Platelet Count 145 k/uL (150-450); RBC 3.38 m/uL (3.80-5.40); RDW 18.7 % (11.5-15.5); WBC 18.7 k/uL (3.8-10.6)
--- NOTE | 2020-09-10 07:48 | XR ---
EXAMINATION TYPE: XR chest 1V DATE OF EXAM: 09/10/2020 COMPARISON: 09/09/2020 INDICATION: Short of breath TECHNIQUE: Single frontal view of the chest is obtained. FINDINGS: The heart size is upper limits for normal. The pulmonary vasculature is normal. There is a patchy infiltrate through the left mid and lower lung field. This worsening over the inter mitch. A right lateral basilar infiltrate appears to be worsening. Port is present on the right with th e tip in superior vena cava region. IMPRESSION: 1. Worsening bilateral lung base infiltrates. Continued follow-up is recommended
[2020-09-10] MEDS: IPRATROPIUM-ALBUTEROL 3 ML NEB INHALATION SCH ×3 (08:08→17:22)
[2020-09-10] MEDS: APIXABAN 5 MG TAB PO SCH (09:17)
[2020-09-10] MEDS ORDERED: SODIUM CHLORIDE 0.9% 500 ML 500 ML IV ONE (09:20)
[2020-09-10] MEDS: METOPROLOL TARTRATE 25 MG TAB PO SCH (09:27)
[2020-09-10] MEDS: PANTOPRAZOLE 40 MG TABLET PO SCH (09:27)
[2020-09-10] MEDS: NYSTATIN 100,000 UNIT/ML SUSP 500,000 UNIT/5 ML CUP PO SCH ×3 (09:27→18:28)
[2020-09-10] MEDS: LINEZOLID 600 MG in DEXTROSE/WATER 1 300ML.BAG IVPB SCH (09:29)
[2020-09-10 09:56] LABS: ABG Base Excess -7.2 mmol/L; ABG HCO3 17 mmol/L (21-25); ABG Oxygen Saturation 98.6 % (94-97); ABG PCO2 27 mmHg (35-45); ABG PH 7.42 (7.35-7.45); ABG PO2 121 mmHg (83-108); ABG TCO2 18 mmol/L (19-24); Allen Test Performed? Yes
[2020-09-10 10:22] LABS: African American GFR (CKD) 21.9 (60.0-200.0); Albumin 2.9 g/dL (3.80-4.90); Albumin/Globulin Ratio 0.66 (1.60-3.17); Anion Gap 19.1 mmol/L (4.00-12.00); BUN/Creat Ratio 30.69 Ratio (12.00-20.00); Calcium 8.7 mg/dL (8.7-10.3); Carbon Dioxide 16.9 mmol/L (21.6-31.8); Globulin 4.4 g/dL (1.6-3.3); Magnesium 2.3 mg/dL (1.5-2.4); Non-African American GFR(CKD) 18.9 (60.0-200.0); Potassium 5.4 mmol/L (3.5-5.5); Total Bilirubin 0.7 mg/dL (0.3-1.2); Total Protein 7.3 g/dL (6.2-8.2)
[2020-09-10] MEDS: SODIUM CHLORIDE 0.9% 1,000 ML IV SCH (10:37)
--- NOTE | 2020-09-10 10:58 | P.PN ---
Subjective Patient is seen in follow for acute kidney injury. Patient's renal function is worsening again. Creatinine up to 2.9 today. Oliguric. No edema. Chest x-ray shows infiltrates. She is currently on 6 L high flow nasal cannula. She did receive a dose of IV Lasix yesterday with no response and urine output. Vital signs - tachycardic. Blood pressure stable. General: The patient appeared well nourished and normally developed. HEENT: Head exam is unremarkable. Neck is without jugular venous distension. LUNGS: Breath sounds decreased. HEART: Tachycardic. ABDOMEN: Soft, no distention. EXTREMITITES: No edema. Objective - Vital Signs Vital signs: Vital Signs Temp 97.3 F L 09/10/20 10:21 Pulse 108 H 09/10/20 10:21 Resp 27 H 09/10/20 10:21 BP 122/84 09/10/20 05:22 Pulse Ox 91 L 09/10/20 10:21 Intake & Output 09/09/20 09/10/20 09/10/20 18:59 06:59 18:59 Intake Total 3160 1415 Output Total 250 30 Balance 2910 1385 Intake: Intake, IV Titration 1600 1125 Amount Linezolid 600 mg In 300 Dextrose/Water 1 300ml. bag @ 150 mls/hr IVPB Q12HR [facility] Rx#:[id number] Meropenem 1 gm In Sodium 200 100 Chloride 0.9% 100 ml @ 33 .3 mls/hr IVPB Q8HR [facility] Rx#:[id number] Sodium Chloride 0.9% 1, 1400 725 000 ml @ 75 mls/hr IV . [id number] [facility] Rx#:[id number] Oral 1560 290 Output: Urine 100 30 Stool 150 Other: Voiding Method Indwelling Catheter Indwelling Catheter Indwelling Catheter - Labs CBC & Chem 7: 09/10/20 05:18 09/10/20 05:18 Labs: Abnormal Lab Results - Last 24 Hours (Table) 09/09/20 09/09/20 09/09/20 Range/Units 06:30 15:09 18:10 WBC (3.8-10.6) k/uL RBC (3.80-5.40) m/uL Hgb (11.4-16.0) gm/dL Hct (34.0-46.0) % MCV (80.0-100.0) fL MCH (25.0-35.0) pg MCHC (31.0-37.0) g/dL RDW (11.5-15.5) % Plt Count (150-450) k/uL Neutrophils # (1.3-7.7) k/uL ABG pCO2 (35-45) mmHg ABG pO2 (83-108) mmHg ABG HCO3 (21-25) mmol/L ABG Total CO2 (19-24) mmol/L ABG O2 Saturation (94-97) % Carbon Dioxide (21.6-31.8) mmol/L Anion Gap (4.00-12.00) mmol/L BUN (9.0-27.0) mg/dL Creatinine (0.6-1.5) mg/dL Est GFR (CKD-EPI)AfAm (60.0-200.0) Est GFR (CKD-EPI)NonAf (60.0-200.0) BUN/Creatinine Ratio (12.00-20.00) Ratio Glucose (70-110) mg/dL Plasma Lactic Acid Cesar 5.7 H* 4.6 H* (0.7-2.0) mmol/L AST (13-35) U/L ALT (8-44) U/L Alkaline Phosphatase (41-126) U/L Albumin (3.80-4.90) g/dL Globulin (1.6-3.3) g/dL Albumin/Globulin Ratio (1.60-3.17) g/dL Procalcitonin 1.87 H (0.02-0.09) ng/mL 09/10/20 09/10/20 09/10/20 Range/Units 05:18 05:18 05:18 WBC 18.7 H (3.8-10.6) k/uL RBC 3.38 L (3.80-5.40) m/uL Hgb 7.6 L (11.4-16.0) gm/dL Hct 26.6 L (34.0-46.0) % MCV 78.9 L (80.0-100.0) fL MCH 22.4 L (25.0-35.0) pg MCHC 28.4 L (31.0-37.0) g/dL RDW 18.7 H (11.5-15.5) % Plt Count 145 L (150-450) k/uL Neutrophils # 17.1 H (1.3-7.7) k/uL ABG pCO2 (35-45) mmHg ABG pO2 (83-108) mmHg ABG HCO3 (21-25) mmol/L ABG Total CO2 (19-24) mmol/L ABG O2 Saturation (94-97) % Carbon Dioxide 16.9 L (21.6-31.8) mmol/L Anion Gap 19.10 H (4.00-12.00) mmol/L BUN 89.0 H (9.0-27.0) mg/dL Creatinine 2.9 H (0.6-1.5) mg/dL Est GFR (CKD-EPI)AfAm 21.9 L (60.0-200.0) Est GFR (CKD-EPI)NonAf 18.9 L (60.0-200.0) BUN/Creatinine Ratio 30.69 H (12.00-20.00) Ratio Glucose 152 H (70-110) mg/dL Plasma Lactic Acid Cesar 4.9 H* (0.7-2.0) mmol/L AST 220 H (13-35) U/L ALT 59 H (8-44) U/L Alkaline Phosphatase 816 H (41-126) U/L Albumin 2.90 L (3.80-4.90) g/dL Globulin 4.4 H (1.6-3.3) g/dL Albumin/Globulin Ratio 0.66 L (1.60-3.17) g/dL Procalcitonin (0.02-0.09) ng/mL 09/10/20 Range/Units 09:50 WBC (3.8-10.6) k/uL RBC (3.80-5.40) m/uL Hgb (11.4-16.0) gm/dL Hct (34.0-46.0) % MCV (80.0-100.0) fL MCH (25.0-35.0) pg MCHC (31.0-37.0) g/dL RDW (11.5-15.5) % Plt Count (150-450) k/uL Neutrophils # (1.3-7.7) k/uL ABG pCO2 27 L (35-45) mmHg ABG pO2 121 H (83-108) mmHg ABG HCO3 17 L (21-25) mmol/L ABG Total CO2 18 L (19-24) mmol/L ABG O2 Saturation 98.6 H (94-97) % Carbon Dioxide (21.6-31.8) mmol/L Anion Gap (4.00-12.00) mmol/L BUN (9.0-27.0) mg/dL Creatinine (0.6-1.5) mg/dL Est GFR (CKD-EPI)AfAm (60.0-200.0) Est GFR (CKD-EPI)NonAf (60.0-200.0) BUN/Creatinine Ratio (12.00-20.00) Ratio Glucose (70-110) mg/dL Plasma Lactic Acid Cesar (0.7-2.0) mmol/L AST (13-35) U/L ALT (8-44) U/L Alkaline Phosphatase (41-126) U/L Albumin (3.80-4.90) g/dL Globulin (1.6-3.3) g/dL Albumin/Globulin Ratio (1.60-3.17) g/dL Procalcitonin (0.02-0.09) ng/mL Microbiology - Last 24 Hours (Table) 09/06/20 07:35 Blood Culture - Preliminary Blood No Growth after 96 hours 09/06/20 08:45 Blood Culture - Preliminary Blood No Growth after 72 hours Assessment and Plan Plan: Assessment: 1. Acute kidney injury secondary to obstructive uropathy status post bilateral ureteral stent placement. Now there appears to be component of ATN from hemodynamic instability versus obstruction. Creatinine up to 2.9 today. 2. Cervical cancer with metastasis. 3. Rectal mass with bowel obstruction status post diverting colostomy on 08/24/2020. 4. Anemia of chronic illness. 5. Metabolic acidosis secondary to acute kidney injury and lactic acidosis. Plan: I will change normal saline to bicarb drip to be run at 100 mL an hour. Urology notified to reevaluate the positioning of ureteral stents. Continue to monitor renal function and urine output. No response to IV Lasix given September 09. Continue to assess daily for need for renal replacement therapy. Overall prognosis guarded. Vancomycin level noted to be on the higher side at 27.3 on 09/06/2020. Currently she is off vancomycin.
[2020-09-10] MEDS ORDERED: DEXTROSE 5% IN WATER 1,000 ML with SODIUM BICARB (1 MEQ/ML) 150 ML IV SCH (11:00)
--- NOTE | 2020-09-10 11:26 | P.PN ---
Subjective Progress Note Date: 09/10/20 Principal diagnosis: Acute hypoxic respiratory failure This is a 45-year-old white female with known history of locally advanced cervical cancer, who underwent diverging colostomy for a rectal mass with secondary bowel obstruction and abdominal pain on 08/24/2020. Patient was in intensive care unit in the postoperative period. Her chest x-ray in the postoperative period showed some basilar atelectasis. Patient was extubated in the recovery room shortly after her surgery. Patient was also being treated for acute urinary tract infection with a combination of cefepime and Flagyl, the postoperative period patient was having a lot of pain issues requiring increased doses of narcotics and Dilaudid TERMITE EXTERMINATOR. CTA chest was obtained on 08/20/2020 showing tiny filling defects within the right upper lobe pulmonary arterial branches and left lower lobe pulmonary arterial branches, possibly related to tiny pulmonary emboli. Lower extremity Dopplers were negative for DVT. Patient was started on heparin infusion. From pulmonary perspective she had been stable, and pulmonary/critical care service had signed off on 08/29/2020. Today on 09/01/2020 we got called back to the bedside for a concern of worsening dyspnea, hypoxia, and altered mental status. Rapid response team was called to the bedside. During our evaluation patient is very lethargic, and she is on 50% Ventimask with a pulse ox of 97-99%, she is barely arousable to painful stimuli, stat chest x-ray was obtained showing bilateral lower lobe infiltrates and small pleural effusion. The nursing staff reports that during the night patient was continuously yelling out and being very agitated, and in addition to her pain medications which included oral Dilaudid 2 mg every 3 hours as needed, IV Dilaudid 1 mg every 6 hours as needed, Flexeril, fentanyl patch 25 mics daily, she had also been given additional doses of Ativan 1 mg at 2:00 in the morning. Since then she was noted to be more lethargic, and more hypoxic requiring increased amount of oxygen. Respiratory depression related to narcotics and benzodiazepines was suspected and the patient was given 3 doses of Narcan 0.5 mg each, she woke up and started becoming more responsive. At that time blood gas was obtained showing pH of 7.53, pCO2 of 31, and pO2 of 136. Initially we were going to put the patient on BiPAP support however as she woke up after the Narcan we decided to hold on that. She did have a elevated temperature last night of 100F, patient had a septic workup done with blood cultures, urinalysis and urine culture, and all the cultures are negative thus far. Since current antibiotic coverage includes meropenem, Flagyl, and vancomycin. Staff reports small amount of vaginal bleeding, patient remains on heparin infusion for possibility of small PEs for the last several days, her last APTT this morning was therapeutic at 61.5, this morning's hemoglobin is 7.9. At this time we can switch patient's heparin infusion to oral Eliquis and continue monitoring for any further bleeding and continue monitoring hemoglobin. On 09/02/2020 patient seen in follow-up on medical oncology floor, she is much more responsive today, still a bit somnolent, but easily wakes up to verbal stimulation, denies any worsening dyspnea, no cough, she remains on 6 L of oxygen, her pulse ox is 94%, and this can be further wean to maintain O2 saturations at or above 90%. She is complaining of some abdominal discomfort. Her colostomy is producing stool. Abdomen is positive for postsurgical tenderness, but it is soft. Patient has been afebrile in the last 24 hours. Her cultures including blood and urine are negative. She continues on breathing treatments, she remains on oral Dilaudid to 2 mg every 3 hours, yesterday we switched her IV heparin to oral Eliquis for possibility of pulmonary emboli. In addition she is on antibiotics in the form of Diflucan, vancomycin and meropenem. No cough. No hemoptysis. No increased vaginal bleeding reports from nursing, today's blood work has been reviewed, her hemoglobin is 7.7, white blood cell count is improving and is down to 13.6 on today's labs. On 09/09/2020 patient seen in follow-up on medical oncology floor. Today we were asked to see the patient again for findings of patchy pulmonary infiltrates that appeared to slightly worse on most recent CT chest abdomen and pelvis without contrast from 09/06/2020. Patient is currently on 6 L of oxygen which is actually less compared to last week when we saw the patient. Yesterday patient was on 10 L of oxygen per high flow nasal cannula. Patient is awake and alert, oriented 3, she is much more awake compared to last week when we saw the patient in reconsultation regarding altered mental status, difficulty breathing, and patient was quite obtunded related to sedatives and narcotics. Since then her pain medications have been readjusted. And currently patient is just on oral Dillaudid 2 mg every 3 hours on an as-needed basis. She is also on antibiotics in the form of meropenem and Zyvox. She had previously been on vancomycin, she has had multiple blood cultures, urine cultures and sputum which were all negative, there was a single blood culture back from 08/14/2020 that showed a diphtheroid species which is thought to be a contamination. Today's labs have been reviewed. Patient's creatinine significantly worsened since yesterday, and she has had very little urine output in the last 12 hours. Nephrology is following. Patient also has Dr. Kelly from urology following in regards to bilateral hydronephrosis and she had bilateral ureteral stents placed and most recent CT of the abdomen and pelvis from 09/06/2020 showing bilateral hydronephrosis, bilateral ureteral stents, stents appeared to be in good position. The urine is blood tinged, dark, urology's impression was that the proximal curl of the right ureteral stent had migrated distally and there was a possibility of undergoing a lateral ureteral stent change later on this month. From pulmonary perspective patient appears to be in no distress, although she is short of breath at rest and with any exertion, incentive spirometer effort has been poor, and she is only tracie 500 mL on the today. No wheezing noted, no rhonchi, no phlegm production, there is only minimal crackles at the right base, good air entry noted bilaterally. Her appetite has been quite poor, her oral intake has been quite poor, she is on oral supplements for nutrition. Her colostomy is producing soft stool. She has had no nausea or vomiting, no diarrhea. On 09/10/2020 patient seen in follow-up on medical oncology floor. Appears to be more tachypneic on today's exam, she is currently on 6 L of oxygen her pulse ox is 89-92%. Patient's respirations are rapid and shallow, but no cough, no phlegm production, follow-up chest x-ray today shows worsening bilateral lung infiltrates. She's been afebrile, blood cultures have been sent yesterday with a concern of underlying sepsis, pro-calcitonin level came back elevated at 1.87. Patient remains on antibiotics on a combination of Zyvox and meropenem. ID service is following. Patient has produced only 30 mL of urine in the last 12 hours, she received a fluid challenge with 1 L IV fluid bolus yesterday, which was followed by 40 mg of IV Lasix, and still has not produced any urine. Today's labs have been reviewed, white blood cell count is 14.7, hemoglobin is 7.5, potassium is 4.7, sodium is 138, CO2 is 19.1, BUN is 89, creatinine is 2.9. And he is receiving maintenance IV fluids with 0.9 normal saline at 75 ML per hour. She has had no nausea or vomiting, her colostomy is producing soft stool. Her oral intake remains very poor. Patient is on Eliquis which was placed on hold by urology for possibility of procedure for repositioning of ureteral stents. Nephrology consultation is pending. Objective - Vital Signs Vital signs: Vital Signs Temp 97.3 F L 09/10/20 10:21 Pulse 108 H 09/10/20 10:21 Resp 27 H 09/10/20 10:21 BP 122/84 09/10/20 05:22 Pulse Ox 91 L 09/10/20 10:21 Intake & Output 09/09/20 09/10/20 09/10/20 18:59 06:59 18:59 Intake Total 3160 1415 Output Total 250 30 Balance 2910 1385 Intake: Intake, IV Titration 1600 1125 Amount Linezolid 600 mg In 300 Dextrose/Water 1 300ml. bag @ 150 mls/hr IVPB Q12HR [facility] Rx#:[id number] Meropenem 1 gm In Sodium 200 100 Chloride 0.9% 100 ml @ 33 .3 mls/hr IVPB Q8HR [facility] Rx#:[id number] Sodium Chloride 0.9% 1, 1400 725 000 ml @ 75 mls/hr IV . [id number] [facility] Rx#:[id number] Oral 1560 [id number] Output: Urine 100 30 Stool 150 Other: Voiding Method Indwelling Catheter Indwelling Catheter Indwelling Catheter - Exam GENERAL EXAM: Awake and alert, pleasant, slightly irritable, 45-year-old white female tachypneic, short of breath at rest but no acute distress on 6 L of oxygen with pulse ox of 91% HEAD: Normocephalic/atraumatic. EYES: Normal reaction of pupils, equal size. Conjunctiva pink, sclera white. NOSE: Clear with pink turbinates. THROAT: No erythema or exudates. NECK: No masses, no JVD, no thyroid enlargement, no adenopathy. CHEST: No chest wall deformity. Symmetrical expansion. LUNGS: Equal air entry with diminished breath sounds at the bases CVS: Regular rate and rhythm, normal S1 and S2, no gallops, no murmurs, no rubs ABDOMEN: Soft, nontender. No hepatosplenomegaly, normal bowel sounds, no guarding or rigidity. EXTREMITIES: No clubbing, no edema, no cyanosis, 2+ pulses and upper and lower extremities. MUSCULOSKELETAL: Muscle strength and tone normal. SPINE: No scoliosis or deformity SKIN: No rashes CENTRAL NERVOUS SYSTEM: Somnolent, but easily opens eyes to verbal stimulation, responds verbally, appropriately, oriented 3 No focal deficits, tone is normal in all 4 extremities. - Labs CBC & Chem 7: 09/10/20 05:18 09/10/20 05:18 Labs: Abnormal Lab Results - Last 24 Hours (Table) 09/09/20 09/09/20 09/09/20 Range/Units 06:30 15:09 18:10 WBC (3.8-10.6) k/uL RBC (3.80-5.40) m/uL Hgb (11.4-16.0) gm/dL Hct (34.0-46.0) % MCV (80.0-100.0) fL MCH (25.0-35.0) pg MCHC (31.0-37.0) g/dL RDW (11.5-15.5) % Plt Count (150-450) k/uL Neutrophils # (1.3-7.7) k/uL ABG pCO2 (35-45) mmHg ABG pO2 (83-108) mmHg ABG HCO3 (21-25) mmol/L ABG Total CO2 (19-24) mmol/L ABG O2 Saturation (94-97) % Carbon Dioxide (21.6-31.8) mmol/L Anion Gap (4.00-12.00) mmol/L BUN (9.0-27.0) mg/dL Creatinine (0.6-1.5) mg/dL Est GFR (CKD-EPI)AfAm (60.0-200.0) Est GFR (CKD-EPI)NonAf (60.0-200.0) BUN/Creatinine Ratio (12.00-20.00) Ratio Glucose (70-110) mg/dL Plasma Lactic Acid Cesar 5.7 H* 4.6 H* (0.7-2.0) mmol/L AST (13-35) U/L ALT (8-44) U/L Alkaline Phosphatase (41-126) U/L Albumin (3.80-4.90) g/dL Globulin (1.6-3.3) g/dL Albumin/Globulin Ratio (1.60-3.17) g/dL Procalcitonin 1.87 H (0.02-0.09) ng/mL 09/10/20 09/10/20 09/10/20 Range/Units 05:18 05:18 05:18 WBC 18.7 H (3.8-10.6) k/uL RBC 3.38 L (3.80-5.40) m/uL Hgb 7.6 L (11.4-16.0) gm/dL Hct 26.6 L (34.0-46.0) % MCV 78.9 L (80.0-100.0) fL MCH 22.4 L (25.0-35.0) pg MCHC 28.4 L (31.0-37.0) g/dL RDW 18.7 H (11.5-15.5) % Plt Count 145 L (150-450) k/uL Neutrophils # 17.1 H (1.3-7.7) k/uL ABG pCO2 (35-45) mmHg ABG pO2 (83-108) mmHg ABG HCO3 (21-25) mmol/L ABG Total CO2 (19-24) mmol/L ABG O2 Saturation (94-97) % Carbon Dioxide 16.9 L (21.6-31.8) mmol/L Anion Gap 19.10 H (4.00-12.00) mmol/L BUN 89.0 H (9.0-27.0) mg/dL Creatinine 2.9 H (0.6-1.5) mg/dL Est GFR (CKD-EPI)AfAm 21.9 L (60.0-200.0) Est GFR (CKD-EPI)NonAf 18.9 L (60.0-200.0) BUN/Creatinine Ratio 30.69 H (12.00-20.00) Ratio Glucose 152 H (70-110) mg/dL Plasma Lactic Acid Cesar 4.9 H* (0.7-2.0) mmol/L AST 220 H (13-35) U/L ALT 59 H (8-44) U/L Alkaline Phosphatase 816 H (41-126) U/L Albumin 2.90 L (3.80-4.90) g/dL Globulin 4.4 H (1.6-3.3) g/dL Albumin/Globulin Ratio 0.66 L (1.60-3.17) g/dL Procalcitonin (0.02-0.09) ng/mL 09/10/20 Range/Units 09:50 WBC (3.8-10.6) k/uL RBC (3.80-5.40) m/uL Hgb (11.4-16.0) gm/dL Hct (34.0-46.0) % MCV (80.0-100.0) fL MCH (25.0-35.0) pg MCHC (31.0-37.0) g/dL RDW (11.5-15.5) % Plt Count (150-450) k/uL Neutrophils # (1.3-7.7) k/uL ABG pCO2 27 L (35-45) mmHg ABG pO2 121 H (83-108) mmHg ABG HCO3 17 L (21-25) mmol/L ABG Total CO2 18 L (19-24) mmol/L ABG O2 Saturation 98.6 H (94-97) % Carbon Dioxide (21.6-31.8) mmol/L Anion Gap (4.00-12.00) mmol/L BUN (9.0-27.0) mg/dL Creatinine (0.6-1.5) mg/dL Est GFR (CKD-EPI)AfAm (60.0-200.0) Est GFR (CKD-EPI)NonAf (60.0-200.0) BUN/Creatinine Ratio (12.00-20.00) Ratio Glucose (70-110) mg/dL Plasma Lactic Acid Cesar (0.7-2.0) mmol/L AST (13-35) U/L ALT (8-44) U/L Alkaline Phosphatase (41-126) U/L Albumin (3.80-4.90) g/dL Globulin (1.6-3.3) g/dL Albumin/Globulin Ratio (1.60-3.17) g/dL Procalcitonin (0.02-0.09) ng/mL Microbiology - Last 24 Hours (Table) 09/06/20 08:45 Blood Culture - Preliminary Blood No Growth after 96 hours 09/06/20 07:35 Blood Culture - Preliminary Blood No Growth after 96 hours Assessment and Plan Plan: Assessment: #1. Acute hypoxic respiratory failure related to possibility of pneumonia, CT chest showed patchy bilateral pulmonary infiltrates. Possibility of mild fluid overload is not excluded, proBNP level has been elevated, however patient also has acute kidney injury and moderate to severe lactic acidosis with a suspicion of sepsis #2. Lactic acidosis related to possibility of sepsis #3. Acute kidney injury, possibly related to nephrotoxic agents, and ATN, patient also has bilateral hydronephrosis with history of bilateral stent placement, nephrology and urology are following #4. Recent history of diverting colostomy surgery on 08/24/2020 a rectal mass related to patient's recent diagnosis of locally advanced cervical cancer #5. Small amount of vaginal bleeding, possibly related to underlying history of cancer, and heparin infusion, will monitor hemoglobin, and switch heparin infusion to oral Eliquis #6. Elevated d-dimer, and CTA chest showed tiny pulmonary emboli in the right upper lobe and left lower lobe, patient had been on heparin infusion since 08/20/2020, with switched over to Eliquis. Lower extremity Dopplers were negative for DVT #7. Acute on chronic pain #8. History of COPD/asthma, unspecified #9. History of urinary tract infection on admission #10. History of urinary obstruction with hydronephrosis and possible stent malfunction present on admission #11. Recent history of MediPort placement for treatment for cervical cancer Plan: Follow-up chest x-ray reviewed showing worsening bilateral infiltrates Continue with antibiotic coverage Continue IV fluids per nephrology recommendations the patient has been switched over to bicarbonate infusion Patient remains in uric despite the IV fluid challenge and Lasix challenge Discussed case with urology was planning on procedures reposition patients bilateral ureteral stents Hold Eliquis Patient is more tachypneic and short of breath, we discussed CODE STATUS with the patient at the bedside The patient wanted us to discuss the case with her who is the decision maker for her medical care We restarted the patient's updated him on patient's condition Overall prognosis is poor Previously hospice possibly was offered to the patient and she had declined She has continued to clinically decline We'll continue supportive medical treatment and update her CODE STATUS according to the patient and her 's wishes We'll continue to follow I performed a history & physical examination of the patient and discussed their management with my nurse practitioner, Merna Ferguson. I reviewed the nurse practitioner's note and agree with the documented findings and plan of care. Lung sounds are positive for diminished breath sounds. The findings and the impression was discussed with the patient. I attest to the documentation by the nurse practitioner. Time with Patient: Less than 30
[2020-09-10 11:52] LABS: ALT 54 U/L (4-34); AST 276 U/L (14-36); African American GFR (CKD) 19 (>60 ml/min/1.73 sqM); Albumin 2.9 g/dL (3.5-5.0); Albumin/Globulin Ratio 0.7; Alkaline Phosphatase 791 U/L (38-126); Anion Gap 17 mmol/L; Blood Urea Nitrogen 85 mg/dL (7-17); Calcium 8.7 mg/dL (8.4-10.2); Carbon Dioxide 16 mmol/L (22-30); Chloride 105 mmol/L (98-107); Globulin 4.1 g/dL; Glucose 119 mg/dL (74-99); Non-African American GFR(CKD) 16 (>60 ml/min/1.73 sqM); Potassium 5.7 mmol/L (3.5-5.1); Sodium 138 mmol/L (137-145)
--- NOTE | 2020-09-10 13:51 | P.PN ---
Progress Note - Text Progress Note Date: 09/10/20 Interval History: Patient was seen resting in bed and was directable and agreeable to speak with the investigative writer in her room. The patient is currently not reporting any suicidal or homicidal ideation, intention, and/or plan. She is not reporting any auditory or visual hallucinations but she is denying paranoia or delusions. The patient continues to express that she has disagreements with the staff. She reports that she feels like she is not receiving adequate treatment. The patient claims express a strong feeling that she is going to . The patient is currently fearful for discharge. She will continue to be unwilling to try medications to help address mood, sleep, or appetite. She denies any issues with appetite. She reports sleep has been poor. Objective: Vital Signs Temp 97.4 F L 09/10/20 12:08 Pulse 98 09/10/20 12:08 Resp 26 H 09/10/20 12:08 BP 116/81 09/10/20 12:08 Pulse Ox 93 L 09/10/20 12:08 Intake & Output 09/09/20 09/10/20 09/10/20 18:59 06:59 18:59 Intake Total 3160 1415 Output Total 250 30 Balance 2910 1385 Weight 94.1 kg Intake: Intake, IV Titration 1600 1125 Amount Linezolid 600 mg In 300 Dextrose/Water 1 300ml. bag @ 150 mls/hr IVPB Q12HR [facility] Rx#:[id number] Meropenem 1 gm In Sodium 200 100 Chloride 0.9% 100 ml @ 33 .3 mls/hr IVPB Q8HR [facility] Rx#:[id number] Sodium Chloride 0.9% 1, 1400 725 000 ml @ 75 mls/hr IV . [id number] [facility] Rx#:[id number] Oral [id number] Output: Urine 100 30 Stool 150 Other: Voiding Method Indwelling Catheter Indwelling Catheter Indwelling Catheter Mental Status Exam: General Appearance: Patient appears to be stated age is alert, directable, and cooperative. She is dressed in a hospital gown and is sitting upright in her bed. Behavior: Patient is calmly seated without any agitated behavior. Eye contact is appropriate. Speech: Patient's speech is fluent and nonpressured. Spontaneous, normal rate and volume. Monotone. Mood/Affect: Mood is "The best a dying lady can do." Affect is Irritable. Suicidality/Homicidality: Patient denies having any suicidal or homicidal ideation intent or plan. Perceptions: Patient denies any visual hallucinations and denies any auditory hallucinations Though content/process: There is no evidence of any delusional thought content and thought process is linear and goal-directed. Memory and concentration: AOX3, grossly intact for the purposes of this session Judgment and insight: Fair Assessment -History of Anxiety Disorder with benzodiazepine dependence -Adjustment Disorder -Rule out Cluster B personality traits The patient is a 45-year-old female with significant acute stressors including the recent diagnosis of cervical cancer and ongoing stressors of family issues. The patient does have a significant history of trauma and given her history of difficulty maintaining relationships with family, her mood lability, and history of multiple trials of DBT, the patient's presentation is consistent with Borderline Personality Disorder. Plan: -At this time patient DOES NOT meet criteria for inpatient psychiatric admission. Patient does not present with immediate risk of harm to self or others and is not actively psychotic. -Would recommend the following medication changes/additions: No medication changes at this time. - Medications are not indicated for a personality disorder and/or adjustment disorder. Supportive psychotherapy and cognitive behavioral therapies are the treatment of choice. -This provider spent approximately 10 minutes with this patient working on DBT skills such as psychoeducation, identifying emotions, reflective listening, and coping skills. -Psychiatry will Sign off at this point. Please reconsult us if necessary.
[2020-09-10] MEDS: TRIMETHOBENZAMIDE 100 MG/ML 2 ML VIAL IM PRN (15:21)
--- NOTE | 2020-09-10 16:31 | PN ---
PROGRESS NOTE DATE OF SERVICE: 09/10/2020 This 45-year-old woman who was admitted with abdominal pain with locally advanced cervical cancer has multiple complex medical issues including pneumonia, sepsis, respiratory failure, pulmonary embolism, tachycardia. The patient being closely monitored at this time. Multiple consultants are following the patient closely. The patient's most recent chest x-ray done, reviewed personally by me showed significant bilateral pneumonia and infiltrates worsening. Antibiotics were changed at this time. The most recent cultures were negative so far. PAST MEDICAL HISTORY: Reviewed. REVIEW OF SYSTEMS: CARDIOVASCULAR: No angina. No palpitations. RESPIRATORY SYSTEM: As mentioned earlier. GI: As mentioned earlier. : No dysuria. NERVOUS SYSTEM: No numbness or weakness. CURRENT MEDICATIONS: Reviewed and include: Tylenol, DuoNeb, Eliquis, benzocaine, dextrose, Dilaudid, , meropenem. PHYSICAL EXAMINATION: Patient is alert, oriented times two. Pulse is 108. Blood pressure is 118/64, respirations 20, temperature 97.4, pulse ox 92% on 8 L high-flow nasal cannula. HEENT: Conjunctivae normal. NECK: No JVD. CARDIOVASCULAR: S1, S2 muffled. RESPIRATORY: Breath sounds diminished at the bases. A few scattered rhonchi and crackles. Expiratory wheezing also heard. ABDOMEN: Soft, nontender. LEGS are no edema. No swelling. NERVOUS SYSTEM: Higher functions as mentioned earlier. Moves all four limbs. No focal deficits. LYMPHATICS: No lymph nodes palpable in the neck, axillae or groin. SKIN: No ulcers, rashes or bleeding. JOINTS: No active deforming arthropathy. LABS: WBC 8.2, hemoglobin 7.6. The lactic acid is 5.2. Sodium 130, potassium 5.7. ASSESSMENT: 1. Abdominal pain with locally advanced cervical cancer, status post abdominal surgery and diverting colostomy, awaiting definitive treatment. 2. Acute hypoxic respiratory failure, multifactorial. 3. Possible bilateral pneumonia and atelectasis possibly gram-negative. 4. Acute pulmonary embolism on direct anticoagulants. 5. 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 6. Tachycardia possibly sinus multifactorial. 7. Pulmonary hypertension on the 2D echo. 8. Diphtheroids species in the blood cultures initially but most recent cultures are negative. 9. Acute urinary tract infection with possible sepsis present on admission. 10.Acute respiratory acidosis. 11.Elevated D-dimer. 12.Urinary obstruction with left hydronephrosis. 13.History of recent MediPort placement. 14.Acute renal injury. 15.Acute blood loss anemia. 16.Shortness of breath, multifactorial, chronic obstructive pulmonary disease acute exacerbation as well as pneumonia. 17.Pain management. 18.Anemia multifactorial. 19.Elevated alkaline phosphatase. 20.Acute pain syndrome possibly secondary to malignancy. 21.Bone scan showing possible metastasis to the pelvic bone. 22.Gait dysfunction. 23.FULL CODE. RECOMMENDATIONS AND DISCUSSION: Continue the current medications, continue symptomatic treatment. Continue with the monitoring. At this time, I recommend continue with empiric antibiotics. Bronchodilators. Patient is currently on linezolid and meropenem. Cultures are negative as mentioned earlier. I would recommend transfer to telemetry and continue to monitor and I would also recommend Cardiology consultation for acute persistent tachycardia. Beta blockers initiated. A 2D echo with Doppler was done a week ago. This showed ejection fraction between 65 and 70%. Further recommendations to follow. Prognosis guarded. MMODL / IJN: [id number] /
--- NOTE | 2020-09-10 16:36 | P.PN ---
Subjective Progress Note Date: 09/10/20 Principal diagnosis: Bowel obstruction 2/2 Cervical cancer In f/u pt seems to be better able to communicate, her breathing is not so labored but, she continues to have multiple complaints. She states that she was told that she was going to be intubated, and explained to her that what the Physicians were likely discussing with her what her thoughts where about intubation if that were to be necessary. Confirmed the same with the nursing staff. Attempts were made today to contact the patient's without success. Objective - Vital Signs Vital signs: Vital Signs Temp 97.4 F L 09/10/20 12:08 Pulse 98 09/10/20 12:08 Resp 26 H 09/10/20 12:08 BP 116/81 09/10/20 12:08 Pulse Ox 93 L 09/10/20 12:08 Intake & Output 09/09/20 09/10/20 09/10/20 18:59 06:59 18:59 Intake Total 3160 1415 Output Total 250 30 7 Balance 2910 1385 -7 Weight 94.1 kg Intake: Intake, IV Titration 1600 1125 Amount Linezolid 600 mg In 300 Dextrose/Water 1 300ml. bag @ 150 mls/hr IVPB Q12HR [facility] Rx#:[id number] Meropenem 1 gm In Sodium 200 100 Chloride 0.9% 100 ml @ 33 .3 mls/hr IVPB Q8HR [facility] Rx#:[id number] Sodium Chloride 0.9% 1, 1400 725 000 ml @ 100 mls/hr IV . Q10H [facility] Rx#:[id number] Oral 1560 290 Output: Urine 100 30 7 Stool 150 Other: Voiding Method Indwelling Catheter Indwelling Catheter Indwelling Catheter - Constitutional General appearance: Present: disheveled, mild distress, obese - EENT Eyes: Present: anicteric sclerae, EOMI ENT: Present: hearing grossly normal - Respiratory Respiratory: right: diminished, bilateral: other (Rapid breathing noted) - Cardiovascular Details: Tachycardia Heart sounds: normal: S1, S2 Abnormal Heart Sounds: Absent: systolic murmur, diastolic murmur, rub, S3 Gallop, S4 Gallop, click, other - Peripheral edema foot Peripheral Edema: bilateral: Trace - Gastrointestinal Gastrointestinal Comment(s): Midline incision dressing is intact, no overt signs or symptoms of infection priyanka und the dressing. General gastrointestinal: Present: normal bowel sounds, soft - Neurologic Neurologic: Present: CNII-XII intact - Musculoskeletal Musculoskeletal: Present: generalized weakness - Psychiatric Psychiatric: Present: A&O x's 3 - Labs CBC & Chem 7: 09/10/20 05:18 09/10/20 10:28 Labs: Abnormal Lab Results - Last 24 Hours (Table) 09/09/20 09/09/20 09/10/20 Range/Units 06:30 18:10 05:18 WBC 18.7 H (3.8-10.6) k/uL RBC 3.38 L (3.80-5.40) m/uL Hgb 7.6 L (11.4-16.0) gm/dL Hct 26.6 L (34.0-46.0) % MCV 78.9 L (80.0-100.0) fL MCH 22.4 L (25.0-35.0) pg MCHC 28.4 L (31.0-37.0) g/dL RDW 18.7 H (11.5-15.5) % Plt Count 145 L (150-450) k/uL Neutrophils # 17.1 H (1.3-7.7) k/uL ABG pCO2 (35-45) mmHg ABG pO2 (83-108) mmHg ABG HCO3 (21-25) mmol/L ABG Total CO2 (19-24) mmol/L ABG O2 Saturation (94-97) % Potassium (3.5-5.1) mmol/L Carbon Dioxide (21.6-31.8) mmol/L Anion Gap (4.00-12.00) mmol/L BUN (9.0-27.0) mg/dL Creatinine (0.6-1.5) mg/dL Est GFR (CKD-EPI)AfAm (60.0-200.0) Est GFR (CKD-EPI)NonAf (60.0-200.0) BUN/Creatinine Ratio (12.00-20.00) Ratio Glucose (70-110) mg/dL Plasma Lactic Acid Cesar 4.6 H* (0.7-2.0) mmol/L AST (13-35) U/L ALT (8-44) U/L Alkaline Phosphatase (41-126) U/L Albumin (3.80-4.90) g/dL Globulin (1.6-3.3) g/dL Albumin/Globulin Ratio (1.60-3.17) g/dL Procalcitonin 1.87 H (0.02-0.09) ng/mL 09/10/20 09/10/20 09/10/20 Range/Units 05:18 05:18 09:50 WBC (3.8-10.6) k/uL RBC (3.80-5.40) m/uL Hgb (11.4-16.0) gm/dL Hct (34.0-46.0) % MCV (80.0-100.0) fL MCH (25.0-35.0) pg MCHC (31.0-37.0) g/dL RDW (11.5-15.5) % Plt Count (150-450) k/uL Neutrophils # (1.3-7.7) k/uL ABG pCO2 27 L (35-45) mmHg ABG pO2 121 H (83-108) mmHg ABG HCO3 17 L (21-25) mmol/L ABG Total CO2 18 L (19-24) mmol/L ABG O2 Saturation 98.6 H (94-97) % Potassium (3.5-5.1) mmol/L Carbon Dioxide 16.9 L (21.6-31.8) mmol/L Anion Gap 19.10 H (4.00-12.00) mmol/L BUN 89.0 H (9.0-27.0) mg/dL Creatinine 2.9 H (0.6-1.5) mg/dL Est GFR (CKD-EPI)AfAm 21.9 L (60.0-200.0) Est GFR (CKD-EPI)NonAf 18.9 L (60.0-200.0) BUN/Creatinine Ratio 30.69 H (12.00-20.00) Ratio Glucose 152 H (70-110) mg/dL Plasma Lactic Acid Cesar 4.9 H* (0.7-2.0) mmol/L AST 220 H (13-35) U/L ALT 59 H (8-44) U/L Alkaline Phosphatase 816 H (41-126) U/L Albumin 2.90 L (3.80-4.90) g/dL Globulin 4.4 H (1.6-3.3) g/dL Albumin/Globulin Ratio 0.66 L (1.60-3.17) g/dL Procalcitonin (0.02-0.09) ng/mL 09/10/20 09/10/20 Range/Units 10:28 10:28 WBC (3.8-10.6) k/uL RBC (3.80-5.40) m/uL Hgb (11.4-16.0) gm/dL Hct (34.0-46.0) % MCV (80.0-100.0) fL MCH (25.0-35.0) pg MCHC (31.0-37.0) g/dL RDW (11.5-15.5) % Plt Count (150-450) k/uL Neutrophils # (1.3-7.7) k/uL ABG pCO2 (35-45) mmHg ABG pO2 (83-108) mmHg ABG HCO3 (21-25) mmol/L ABG Total CO2 (19-24) mmol/L ABG O2 Saturation (94-97) % Potassium 5.7 H (3.5-5.1) mmol/L Carbon Dioxide 16 L (21.6-31.8) mmol/L Anion Gap (4.00-12.00) mmol/L BUN 85 H (9.0-27.0) mg/dL Creatinine 3.26 H (0.6-1.5) mg/dL Est GFR (CKD-EPI)AfAm (60.0-200.0) Est GFR (CKD-EPI)NonAf (60.0-200.0) BUN/Creatinine Ratio (12.00-20.00) Ratio Glucose 119 H (70-110) mg/dL Plasma Lactic Acid Cesar 5.2 H* (0.7-2.0) mmol/L AST 276 H (13-35) U/L ALT 54 H (8-44) U/L Alkaline Phosphatase 791 H (41-126) U/L Albumin 2.9 L (3.80-4.90) g/dL Globulin (1.6-3.3) g/dL Albumin/Globulin Ratio (1.60-3.17) g/dL Procalcitonin (0.02-0.09) ng/mL Microbiology - Last 24 Hours (Table) 09/06/20 08:45 Blood Culture - Preliminary Blood No Growth after 96 hours 09/06/20 07:35 Blood Culture - Preliminary Blood No Growth after 96 hours - Imaging and Cardiology Chest x-ray: report reviewed Assessment and Plan (1) Pulmonary emboli Narrative/Plan: Eliquis. 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 Rectal mets (or cervical mass growing into rectal area?). Ureteral obstruction from malignancy, has had stents, Urology planning to exchange later this month Pt has not started any systemic cancer treatment yet. Now, pt has had diverting ostomy surgery-no chemo for about 4 weeks. Rad Onc has seen. Patient healing should be adequate enough to begin some radiation but, patient is currently not stable enough for the same. She is being aggressively treated by multiple specialties. Current Visit: Yes Status: Acute Priority: High Code(s): C79.9 - SECONDARY MALIGNANT NEOPLASM OF UNSPECIFIED SITE; C53.9 - MALIGNANT NEOPLASM OF CERVIX UTERI, UNSPECIFIED SNOMED Code(s): 268438710 (4) UTI (urinary tract infection) Narrative/Plan: ID following closely-aggressive abx mgmt. Current Visit: Yes Status: Acute Priority: High Code(s): N39.0 - URINARY TRACT INFECTION, SITE NOT SPECIFIED SNOMED Code(s): 40629338 Plan: Patient is being aggressively managed by multiple specialties. She continues on antibiotics. Pulmonary and Nephrology aggressively managing her as well. She has been seen by Rehabilitation Physician, she may be a candidate for inpatient rehab. We will continue to follow the patient every day and see how she progresses.
[2020-09-10 16:56] LABS: Glucose,Whole Blood 131 mg/dL (75-99)
[2020-09-10] MEDS ORDERED: MORPHINE SULFATE 4 MG/ML SYRINGE IV PRN (18:15)
[2020-09-10] MEDS ORDERED: LORazepam 2 MG/ML INJ IV PRN (18:15)
[2020-09-10] MEDS ORDERED: MORPHINE SULFATE 2 MG/ML SYRINGE IV PRN (18:15)
[2020-09-10] MEDS ORDERED: HYDROmorphone 2 MG TAB PO PRN (18:26)
[2020-09-10] MEDS ORDERED: HYDROmorphone 1 MG/ML 1 ML SYRINGE IVP PRN (18:33)
[2020-09-10] MEDS ORDERED: MORPHINE SULFATE (100 MG/2 ML) 100 MG in SODIUM CHLORIDE 0.9% 100 ML IV SCH (19:00)
[2020-09-10] MEDS ORDERED: SCOPOLAMINE 1.5MG/72HR PATCH TRANSDERM SCH (19:00)
--- NOTE | 2020-09-10 19:46 | P.PN ---
Progress Note - Text Progress Note Date: 09/10/20 Mrs. Arshad was seen on 2 occasions today by me. She became significantly oliguric, and her serum creatinine level manjula. Consideration was given to changing her ureteral stents, but she and her family ultimately chose to switch to hospice care and in view of this she declined stent change.
[2020-09-10] MEDS ORDERED: APIXABAN 2.5 MG TABLET PO SCH (21:00)
[2020-09-10 22:31] VITALS: BP 128/81; TEMP 98.4
[2020-09-10 22:32] VITALS: PULSE 124; RESP 35
== END 2020-09-10 23:38 | disposition expired | DRG 329 ==
LOC: EC 16:11 → 4SSUR 22:47 → 2SICU 08-24 15:52 → 5NMEDONC 08-26 22:24 → 3SCARD 09-10 16:00
PROVIDERS: ADMIT Internal Medicine; ATTEND Internal Medicine
PROC: 0DB78ZX Excision of Stomach, Pylorus, Via Natural or Artificial Opening Endoscopic, Diagnostic (ICD-10-PCS; 2020-08-21)
PROC: 0DBP8ZX Excision of Rectum, Via Natural or Artificial Opening Endoscopic, Diagnostic (ICD-10-PCS; 2020-08-21 08:00)
PROC: 0D1N0Z4 Bypass Sigmoid Colon to Cutaneous, Open Approach (ICD-10-PCS; principal; 2020-08-24 10:35)
PROC: 30233N1 Transfusion of Nonautologous Red Blood Cells into Peripheral Vein, Percutaneous Approach (ICD-10-PCS; 2020-08-26)
PROC: 5A0945A Assistance with Respiratory Ventilation, 24-96 Consecutive Hours, High Flow/Velocity Cannula (ICD-10-PCS; 2020-09-04)
DX: C78.5 Secondary malignant neoplasm of large intestine and rectum (principal); J96.01 Acute respiratory failure with hypoxia; N17.0 Acute kidney failure with tubular necrosis; I26.99 Other pulmonary embolism without acute cor pulmonale; A41.9 Sepsis, unspecified organism; J15.6 Pneumonia due to other Gram-negative bacteria; C79.51 Secondary malignant neoplasm of bone; E87.2 Acidosis; D62 Acute posthemorrhagic anemia; J44.1 Chronic obstructive pulmonary disease with (acute) exacerbation; J44.0 Chronic obstructive pulmonary disease with (acute) lower respiratory infection; F13.20 Sedative, hypnotic or anxiolytic dependence, uncomplicated; N13.6 Pyonephrosis; I27.20 Pulmonary hypertension, unspecified; Z20.822 Contact with and (suspected) exposure to COVID-19; C53.9 Malignant neoplasm of cervix uteri, unspecified; R33.9 Retention of urine, unspecified; Z86.73 Personal history of transient ischemic attack (TIA), and cerebral infarction without residual deficits; Z51.5 Encounter for palliative care; Z66 Do not resuscitate; Z86.14 Personal history of Methicillin resistant Staphylococcus aureus infection; F43.10 Post-traumatic stress disorder, unspecified; Z87.891 Personal history of nicotine dependence; Z88.0 Allergy status to penicillin; E86.0 Dehydration; K21.9 Gastro-esophageal reflux disease without esophagitis; K29.70 Gastritis, unspecified, without bleeding; J40 Bronchitis, not specified as acute or chronic; D63.0 Anemia in neoplastic disease; R00.0 Tachycardia, unspecified; K58.9 Irritable bowel syndrome, unspecified; R15.9 Full incontinence of feces; Z91.19 Patient's noncompliance with other medical treatment and regimen; G89.3 Neoplasm related pain (acute) (chronic); R62.7 Adult failure to thrive; F41.9 Anxiety disorder, unspecified; F43.20 Adjustment disorder, unspecified; F60.3 Borderline personality disorder; R74.8 Abnormal levels of other serum enzymes; T42.4X5A Adverse effect of benzodiazepines, initial encounter; T40.605A Adverse effect of unspecified narcotics, initial encounter; Z87.440 Personal history of urinary (tract) infections; Z88.8 Allergy status to other drugs, medicaments and biological substances; Z79.01 Long term (current) use of anticoagulants; Z91.14 Patient's other noncompliance with medication regimen; Z91.410 Personal history of adult physical and sexual abuse; E87.70 Fluid overload, unspecified; F90.9 Attention-deficit hyperactivity disorder, unspecified type; K64.9 Unspecified hemorrhoids; Z87.820 Personal history of traumatic brain injury; Z96.0 Presence of urogenital implants; Z88.5 Allergy status to narcotic agent; Z88.6 Allergy status to analgesic agent; Z88.1 Allergy status to other antibiotic agents; Z91.041 Radiographic dye allergy status
CPT/HCPCS: 36415; 36600; 43239; 45378; 71045; 71046; 71250; 71275; 72100; 74018; 74022; 74176; 77001; 78306; 80048; 80053; 80076; 80202; 81001; 81025; 82150; 82272; 82565; 82607; 82728; 82747; 82805; 83540; 83550; 83605; 83690; 83735; 83880; 83921; 84132; 84145; 84443; 85025; 85379; 85610; 85730; 86140; 86850; 86900; 86901; 86920; 87040; 87070; 87086; 87205; 87635; 88305; 88342; 93005; 93306; 93970; 94002; 94640; 94664; 94760; 96361; 96374; 96375; 99283; 99285